=== PATIENT | female | born 1930 ===

== ENCOUNTER → 2016-08-18 | Outpatient (CLI) | payer MEDICARE, OTHER ==
[2016-08-18 11:41] LABS: Blood Urea Nitrogen 15 mg/dL (7-17); Non-African American GFR(MDRD) >60 (>60 ml/min/1.73 sqM)
--- NOTE | 2016-08-18 13:07 | CT ---
EXAMINATION TYPE: CT chest w con DATE OF EXAM: 08/18/2016 12:52 PM COMPARISON: Previous study dated 10/14/2015. HISTORY: Dyspnea CT DLP: 655.3 mGycm Automated exposure control for dose reduction was used. CONTRAST: CT scan of the chest is performed with IV Contrast, patient injected with 100 mL of Omnipaque 300. FINDINGS: There is a 7.6 mm groundglass nodule in the lateral segment of the right upper lobe, best seen on image 17. Previously this measured 5.5 mm. There is chronic atelectasis in the right middle lobe and there is dependent atelectasis at the lung bases. There is mild cardiomegaly. There is no pleural or pericardial fluid. Within the abdomen, there is fatty infiltration of the liver. There is evidence of old granulomatous change in the spleen. There are multiple low attenuating lesions within all lobes of the liver, uncha nged from previous. Visualized portions of the upper abdomen are otherwise normal. There is extensive spondylosis deformans and hypertrophic spondylosis within the spine. IMPRESSION: 1. SLIGHT ENLARGEMENT IN A GROUNDGLASS NODULE WITHIN THE LATERAL SEGMENT OF THE RIGHT UPPER LOBE. 2. CARDIOMEGALY. 3. MULTIPLE HEPATIC CYSTS. 4. FATTY INFILTRATION OF THE LIVER 5. DEGENERATIVE CHANGES WITHIN THE SPINE.
== END | disposition home or self-care (01) ==
LOC: RADCTMAIN 10:43
PROVIDERS: ATTEND Internal Medicine Critical Care Medicine
DX: R91.1 Solitary pulmonary nodule (principal); I51.7 Cardiomegaly
CPT/HCPCS: 71260; 82565; 84520

== ENCOUNTER 2016-09-03 06:35 | Day surgery (SDC) | payer MEDICARE, OTHER ==
[2016-09-02 11:23] VITALS: BMI 42.8
[~2016-09-03 06:35] MED LIST: LACTATED RINGERS 1,000 ML IV SCH
[2016-09-03 07:30] VITALS: RESP 16; TEMP 97.3
[2016-09-03] MEDS ORDERED: LIDOCAINE 1% 20 ML VIAL (10MG/ML) FOR IV START INTRADERMA ONE (07:38)
[2016-09-03 07:39] LABS: Glucose,Whole Blood 114 mg/dL (75-99)
[2016-09-03] MEDS ORDERED: LIDOCAINE 1% INJ 10MG/ML (20 ML MDV) ONE (08:12)
[2016-09-03] MEDS ORDERED: PROPOFOL 10 MG/ML 20 ML VIAL IV ONE (08:12)
--- NOTE | 2016-09-03 08:27 | P.PCN ---
Date of Procedure: 09/03/16 Procedure(s) Performed: BRIEF HISTORY: Patient is a 85-year-old, pleasant, female, scheduled for an upper endoscopy and possible dilation as a part of evaluation of dysphagia for the last several months duration. She has constant sense of global pharyngitis and occasional dysphagia but given his any choking episodes. She has long- standing history of GERD and has been on Prilosec 20 mg daily. PROCEDURE PERFORMED: Esophagogastroduodenoscopy with biopsy. PREOPERATIVE DIAGNOSIS: Dysphagia/GERD/low was pharyngitis. IV sedation per anesthesia. PROCEDURE: After informed consent was obtained, the patient was brought into the endoscopy unit. IV conscious sedation was administered by Anesthesia under continuous monitoring. Initially the Olympus GIF-140 video endoscope was inserted into the mouth. Esophagus intubated without any difficulty. It was gradually advanced into the stomach and duodenum and carefully examined. The bulb and the second part of the duodenum appeared normal. The scope at this time was withdrawn to the stomach, adequately insufflated with air, and upon careful examination, mucosa of the antrum, body, had diffuse gastritis and biopsies were done from these areas. The cardia and the fundus appeared normal. The scope was then withdrawn into the esophagus. The GE junction was located at 39 cm from the incisors. The esophagus appeared normal. Biopsies were done from the distal esophagus to rule out years of age esophagitis. There were no erosions or ulcerations seen. The proximal cervical esophagus was carefully examined and it appeared like the tightness and the cricopharyngeus suspicious for cricopharyngeal dysfunction. There were no mucosal lesions seen and the patient tolerated the procedure well. IMPRESSION: 1. Normal-appearing esophagus with no evidence of esophagitis or esophageal stricture. 2. Some tightness at the upper esophageal sphincter suggestive of mild cricopharyngeal dysfunction. RECOMMENDATIONS: The findings of this examination were discussed with the patient as well as a family. She was reassured about the findings and the meantime I advised her to continue with Prilosec 20 mg daily and follow soft diet.
[2016-09-03 08:51] VITALS: BP 151/86; PULSE 86
== END 2016-09-03 09:18 | disposition home or self-care (01) ==
LOC: ORWHC2ENDO 06:35
PROVIDERS: ATTEND Internal Medicine Gastroenterology
DX: K29.50 Unspecified chronic gastritis without bleeding (principal); K21.9 Gastro-esophageal reflux disease without esophagitis; K22.8 Other specified diseases of esophagus; I50.9 Heart failure, unspecified; I48.91 Unspecified atrial fibrillation; I10 Essential (primary) hypertension; E78.5 Hyperlipidemia, unspecified; G47.33 Obstructive sleep apnea (adult) (pediatric); Z87.891 Personal history of nicotine dependence; E07.9 Disorder of thyroid, unspecified; F39 Unspecified mood [affective] disorder; M54.9 Dorsalgia, unspecified; G89.29 Other chronic pain; Z79.899 Other long term (current) drug therapy; Z79.84 Long term (current) use of oral hypoglycemic drugs; Z79.02 Long term (current) use of antithrombotics/antiplatelets; Z79.51 Long term (current) use of inhaled steroids; Z88.6 Allergy status to analgesic agent
CPT/HCPCS: 88305; 88342; 43239; J2001; J2704

== ENCOUNTER 2017-03-30 21:24 | Emergency (ER) | payer MEDICARE, OTHER ==
[2017-03-30] MEDS ORDERED: SODIUM CHLORIDE 0.9% 1,000 ML IV STA (22:04)
[2017-03-30] MEDS ORDERED: MORPHINE SULFATE 4 MG/ML SYRINGE IV STA (22:04)
[2017-03-30] MEDS ORDERED: LABETALOL 5 MG/ML VIAL MDV IVP STA (22:05)
--- NOTE | 2017-03-30 22:10 | ED ---
General Adult HPI - General Chief complaint: Chest Pain Stated complaint: neck and back pain Time Seen by Provider: 03/30/17 21:47 Source: patient, family, EMS, RN notes reviewed, old records reviewed Mode of arrival: ambulatory - History of Present Illness Initial comments: 86-year-old female presents with atraumatic left shoulder, left neck, and left chest pain. Patient has known history of hypertension. On initial presentation she is very hypertensive systolic blood pressure to 10. Patient denies any injury. Pain is dull and worse with movement. Patient denies central chest pain. Pain is left anterior superior. Patient denies missing any of her antihypertensive medications. She did have some nausea with no significant vomiting. No diarrhea. No abdominal pain. No headache. No fever. - Related Data Home Medications Medication Instructions Recorded Confirmed Omeprazole [PriLOSEC] 20 mg PO BID 06/02/15 03/30/17 Sertraline [Zoloft] 25 mg PO DAILY 10/18/15 03/30/17 Apixaban [Eliquis] 2.5 mg PO BID 02/14/16 03/30/17 HYDROcodone/APAP 5-325MG [[place] 1 tab PO TID PRN 02/14/16 03/30/17 5-325] Diltiazem Oral [Cardizem Oral] 30 mg PO TID 09/02/16 03/30/17 Losartan/Hydrochlorothiazide 1 tab PO DAILY 09/02/16 03/30/17 [Hyzaar 100-25 Tablet] Fluticasone Nasal [place] [Flonase 1 spray EA NOSTRIL DAILY 03/30/17 03/30/17 Nasal [place]] Previous Rx's Medication Instructions Recorded metFORMIN HCL [Glucophage] 850 mg PO AC-SUPPER #30 tab 02/17/16 HYDROcodone/APAP 7.5-325MG [[place] 1 tab PO Q6HR PRN #24 tab 03/31/17 7.5-325] Allergies Allergy/AdvReac Type Severity Reaction Status Date / Time aspirin AdvReac SEE Verified 03/30/17 22:35 COMMENTS Review of Systems ROS Statement: Those systems with pertinent positive or pertinent negative responses have been documented in the HPI. ROS Other: All systems not noted in ROS Statement are negative. Past Medical History Past Medical History: Atrial Fibrillation, Heart Failure, GERD/Reflux, Hyperlipidemia, Hypertension, Osteoarthritis (OA), Respiratory Disorder, Sleep Apnea/CPAP/BIPAP, Thyroid Disorder Additional Past Medical History / Comment(s): DDD WITH BACK PAIN, OCCASIONAL SWELLING IN FEET-DENIES ANY NOW., USES C-PAP MACHINE. , FEELS LIKE SHE HAS A LUMP IN HER THROAT. History of Any Multi-Drug Resistant Organisms: None Reported Past Surgical History: Cholecystectomy, Hysterectomy, Joint Replacement Additional Past Surgical History / Comment(s): EGD for gastric reflux. Excision of lipomas. bilateral cataracts, total knee. Past Anesthesia/Blood Transfusion Reactions: No Reported Reaction Past Psychological History: Anxiety, Depression Smoking Status: Former smoker Past Alcohol Use History: None Reported Past Drug Use History: None Reported - Past Family History Brother(s) Family Medical History: Congestive Heart Failure (CHF), COPD, Coronary Artery Disease (CAD), Diabetes Mellitus Daughter(s) Additional Family Medical History / Comment(s): One from MVA Son(s) Family Medical History: Diabetes Mellitus, Hyperlipidemia, Hypertension Sister(s) Family Medical History: Cancer Mother Family Medical History: Dementia Father Family Medical History: COPD Additional Family Medical History / Comment(s): . General Exam General appearance: alert, in distress Head exam: Present: atraumatic, normocephalic Eye exam: Present: normal appearance, PERRL ENT exam: Present: normal exam Neck exam: Present: normal inspection, tenderness ((Spinal tenderness) Respiratory exam: Present: normal lung sounds bilaterally. Absent: respiratory distress Cardiovascular Exam: Present: regular rate, irregular rhythm GI/Abdominal exam: Present: soft. Absent: distended, tenderness Extremities exam: Present: normal inspection, normal capillary refill, other (2 + DP and 2+ radial pulses). Absent: pedal edema Back exam: Present: tenderness (Left shoulder and thoracic paraspinal muscle tenderness to palpation) Neurological exam: Present: alert, oriented X3, CN II-XII intact. Absent: motor sensory deficit Psychiatric exam: Present: normal affect, normal mood Skin exam: Present: warm, dry, intact. Absent: cyanosis, diaphoretic Course Vital Signs 03/30/17 03/30/17 03/30/17 21:42 22:33 23:20 Temperature 98.2 F Pulse Rate 97 97 71 Respiratory 18 18 18 Rate Blood Pressure 181/95 175/95 154/74 O2 Sat by Pulse 95 98 97 Oximetry 03/31/17 03/31/17 00:13 01:16 Temperature Pulse Rate 90 82 Respiratory 16 Rate Blood Pressure 157/82 147/70 O2 Sat by Pulse 98 98 Oximetry Medical Decision Making - Lab Data Result diagrams: 03/30/17 13:02 03/30/17 13:02 Lab Results 03/30/17 03/30/17 03/30/17 Range/Units 13:02 13:02 13:02 WBC 7.3 (3.8-10.6) k/uL RBC 4.70 (3.80-5.40) m/uL Hgb 13.7 (11.4-16.0) gm/dL Hct 42.8 (34.0-46.0) % MCV 91.1 (80.0-100.0) fL MCH 29.2 (25.0-35.0) pg MCHC 32.0 (31.0-37.0) g/dL RDW 14.7 (11.5-15.5) % Plt Count 230 (150-450) k/uL Neutrophils % 65 % Lymphocytes % 26 % Monocytes % 6 % Eosinophils % 2 % Basophils % 0 % Neutrophils # 4.7 (1.3-7.7) k/uL Lymphocytes # 1.9 (1.0-4.8) k/uL Monocytes # 0.4 (0-1.0) k/uL Eosinophils # 0.1 (0-0.7) k/uL Basophils # 0.0 (0-0.2) k/uL PT (9.0-12.0) sec INR (<1.2) APTT (22.0-30.0) sec Sodium 142 (137-145) mmol/L Potassium 4.0 (3.5-5.1) mmol/L Chloride 107 (98-107) mmol/L Carbon Dioxide 25 (22-30) mmol/L Anion Gap 10 mmol/L BUN 14 (7-17) mg/dL Creatinine 0.68 (0.52-1.04) mg/dL Est GFR (MDRD) Af Amer >60 (>60 ml/min/1.73 sqM) Est GFR (MDRD) Non-Af >60 (>60 ml/min/1.73 sqM) Glucose 120 H (74-99) mg/dL Calcium 8.9 (8.4-10.2) mg/dL Magnesium 1.6 (1.6-2.3) mg/dL Total Bilirubin 0.7 (0.2-1.3) mg/dL AST 28 (14-36) U/L ALT 32 (9-52) U/L Alkaline Phosphatase 54 (38-126) U/L Total Creatine Kinase 115 (30-135) U/L CK-MB (CK-2) 3.2 H* (0.0-2.4) ng/mL CK-MB (CK-2) Rel Index 2.8 Troponin I <0.012 (0.000-0.034) ng/mL NT-Pro-B Natriuret Pep pg/mL Total Protein 6.8 (6.3-8.2) g/dL Albumin 3.8 (3.5-5.0) g/dL 03/30/17 03/30/17 Range/Units 13:02 13:02 WBC (3.8-10.6) k/uL RBC (3.80-5.40) m/uL Hgb (11.4-16.0) gm/dL Hct (34.0-46.0) % MCV (80.0-100.0) fL MCH (25.0-35.0) pg MCHC (31.0-37.0) g/dL RDW (11.5-15.5) % Plt Count (150-450) k/uL Neutrophils % % Lymphocytes % % Monocytes % % Eosinophils % % Basophils % % Neutrophils # (1.3-7.7) k/uL Lymphocytes # (1.0-4.8) k/uL Monocytes # (0-1.0) k/uL Eosinophils # (0-0.7) k/uL Basophils # (0-0.2) k/uL PT 10.5 (9.0-12.0) sec INR 1.0 (<1.2) APTT 21.5 L (22.0-30.0) sec Sodium (137-145) mmol/L Potassium (3.5-5.1) mmol/L Chloride (98-107) mmol/L Carbon Dioxide (22-30) mmol/L Anion Gap mmol/L BUN (7-17) mg/dL Creatinine (0.52-1.04) mg/dL Est GFR (MDRD) Af Amer (>60 ml/min/1.73 sqM) Est GFR (MDRD) Non-Af (>60 ml/min/1.73 sqM) Glucose (74-99) mg/dL Calcium (8.4-10.2) mg/dL Magnesium (1.6-2.3) mg/dL Total Bilirubin (0.2-1.3) mg/dL AST (14-36) U/L ALT (9-52) U/L Alkaline Phosphatase (38-126) U/L Total Creatine Kinase (30-135) U/L CK-MB (CK-2) (0.0-2.4) ng/mL CK-MB (CK-2) Rel Index Troponin I (0.000-0.034) ng/mL NT-Pro-B Natriuret Pep 704 pg/mL Total Protein (6.3-8.2) g/dL Albumin (3.5-5.0) g/dL Disposition Clinical Impression: Musculoskeletal back pain Disposition: HOME SELF-CARE Condition: Good Instructions: Musculoskeletal Pain (ED) Prescriptions: HYDROcodone/APAP 7.5-325MG [[place] 7.5-325] 1 tab PO Q6HR PRN #24 tab PRN Reason: Pain Referrals: Jose Alfredo Burris MD [Primary Care Provider] - 1-2 days Time of Disposition: 01:15
[2017-03-30 22:22] LABS: Basophils % (A) 0 %; CH 30.5; CHCM 33.7; Eosinophils # (A) 0.1 k/uL (0-0.7); Eosinophils % (A) 2 %; HCT 42.8 % (34.0-46.0); HDW 2.91; HGB 13.7 gm/dL (11.4-16.0); Luc # (Auto) 0.11; Luc % (Auto) 2; Lymphocytes # (A) 1.9 k/uL (1.0-4.8); Lymphocytes % (A) 26 %; MCH 29.2 pg (25.0-35.0); MCV 91.1 fL (80.0-100.0); Mean Platelet Volume 7.8; Monocytes # (A) 0.4 k/uL (0-1.0); Monocytes % (A) 6 %; Neutrophils # (A) 4.7 k/uL (1.3-7.7); Neutrophils % (A) 65 %; RDW 14.7 % (11.5-15.5); WBC 7.3 k/uL (3.8-10.6); WBC (Perox) 7.74
[2017-03-30 22:35] LABS: Anion Gap 10 mmol/L; Calcium 8.9 mg/dL (8.4-10.2); Carbon Dioxide 25 mmol/L (22-30); Chloride 107 mmol/L (98-107); Glucose 120 mg/dL (74-99); Non-African American GFR(MDRD) >60 (>60 ml/min/1.73 sqM); Sodium 142 mmol/L (137-145); Total Bilirubin 0.7 mg/dL (0.2-1.3); Total Protein 6.8 g/dL (6.3-8.2)
[2017-03-30 22:38] LABS: Partial Thromboplastin Time 21.5 sec (22.0-30.0); Prothrombin Time 10.5 sec (9.0-12.0)
[2017-03-30 22:41] LABS: ALT 32 U/L (9-52); AST 28 U/L (14-36); Alkaline Phosphatase 54 U/L (38-126); Blood Urea Nitrogen 14 mg/dL (7-17); Magnesium 1.6 mg/dL (1.6-2.3)
--- NOTE | 2017-03-30 22:49 | XR ---
EXAMINATION TYPE: XR chest 1V portable DATE OF EXAM: 03/30/2017 COMPARISON: 02/15/2016 HISTORY: Chest pain TECHNIQUE: Single frontal view of the chest is obtained. FINDINGS: There is mild increased density at the lateral left lung base. There is no gross heart nisreen lure. Heart appears slightly enlarged. Thoracic aorta is atheromatous. There are chest leads. IMPRESSION: Mild infiltrate or atelectasis at the lateral left lung base is new compared to old exam . There is clearing of infiltrate at the right lung base compared to old exam. There is decrease in t he pulmonary congestion compared to old exam.
[2017-03-30 22:58] LABS: Creatine Kinase 115 U/L (30-135)
[2017-03-30 23:09] LABS: Troponin I <0.012 ng/mL (0.000-0.034)
[2017-03-30] MEDS ORDERED: RX INFO: IV CONTRAST WAS GIVEN 1 EACH MISC MISCELLANE PRN (23:16)
[2017-03-30 23:25] LABS: Creatine Kinase MB 3.2 ng/mL (0.0-2.4)
--- NOTE | 2017-03-31 00:28 | CT ---
EXAMINATION TYPE: CT angio thoracic/abd aorta DATE OF EXAM: 03/31/2017 COMPARISON: NONE HISTORY: No prior aorta study. Prior chest and abd studies on synapse, chest and back pain,weakness, dizziness, R/O AAA CT DLP: DLP:1762.90 mGycm. Automated Exposure Control for Dose Reduction was Utilized. CONTRAST: CT scan of the thorax, abdomen and pelvis is performed with IV Contrast, patient injected with 100 mL of Omnipaque 350. FINDINGS: There are 3-D post processed images. The lungs are clear of consolidation. There is minimal fibrosis and subsegmental atelectasis at the l mable bases. Heart is enlarged. Thoracic aorta is atheromatous. There is normal branching pattern of th e great vessels on the aortic arch. Thoracic aorta has normal diameter. Abdominal aorta has normal diameter. There is bilateral patency of the renal arteries. There is patency of the celiac artery and superior mesenteric artery. I see no evidence of hemodynamically significant stenosis. There is atheroscleroti c plaque formation in the renal arteries and mesenteric arteries. The common iliac arteries are widel y patent. Internal and external iliac arteries appear widely patent. There are moderate spondylotic c hanges throughout the thoracic and lumbar spine. There are scattered hepatic cysts that measure up to 2 cm. There is no hydronephrosis. There is no re troperitoneal adenopathy. There is no sign of pancreatic mass. There are multiple calcified splenic g ranulomata. There is no evidence of a pelvic mass. Appendix appears normal. CONCLUSION: Multilevel spondylosis. No evidence of aortic aneurysm or dissection. No evidence of hemodynamically significant stenosis. Small hepatic cysts. Cardiomegaly. No evidence of pulmonary embolism. Mild atherosclerotic vascular d isease.
[2017-03-31] MEDS ORDERED: HYDROcodone/APAP 7.5-325MG 1 EACH TAB PO ONE (01:45)
[2017-03-31 02:04] VITALS: BP 182/92; PULSE 103; RESP 20; TEMP 98
== END 2017-03-31 02:14 | disposition home or self-care (01) ==
LOC: EC 21:24
DX: M54.9 Dorsalgia, unspecified (principal); M25.512 Pain in left shoulder; R07.89 Other chest pain; M54.2 Cervicalgia; R11.0 Nausea; I11.0 Hypertensive heart disease with heart failure; I50.9 Heart failure, unspecified; I48.91 Unspecified atrial fibrillation; K21.9 Gastro-esophageal reflux disease without esophagitis; J98.9 Respiratory disorder, unspecified; F32.9 Major depressive disorder, single episode, unspecified; F41.9 Anxiety disorder, unspecified; Z87.891 Personal history of nicotine dependence; Z79.01 Long term (current) use of anticoagulants; Z79.51 Long term (current) use of inhaled steroids; Z79.899 Other long term (current) drug therapy; Z88.6 Allergy status to analgesic agent; Z82.49 Family history of ischemic heart disease and other diseases of the circulatory system
CPT/HCPCS: 99285 ×2; 96374 ×2; 96375 ×2; 96361 ×5; 36415; 93005; 83880; 80053; 82550; 82553; 83735; 84484; 85025; 85610; 85730; 71010; 75635; 71275; J2270; Q9967

== ENCOUNTER 2017-12-25 03:32 | Inpatient (IN) | payer MEDICARE, OTHER ==
[2017-12-25] MEDS ORDERED: cefTRIAXone 2,000 MG in SODIUM CHLORIDE 0.9% 100 ML IVPB STA (04:02)
[2017-12-25] MEDS ORDERED: cefTRIAXone IN SWFI 2,000 MG/20 ML SYRINGE IVP STA ×2 (04:04→07:59)
[2017-12-25 04:09] LABS: Basophils % (A) 0 %; Eosinophils # (A) 0.1 k/uL (0-0.7); Eosinophils % (A) 1 %; HGB 13.3 gm/dL (11.4-16.0); Lymphocytes # (A) 1.5 k/uL (1.0-4.8); Lymphocytes % (A) 12 %; MCH 29.2 pg (25.0-35.0); MCHC 33.2 g/dL (31.0-37.0); MCV 88.1 fL (80.0-100.0); Mean Platelet Volume 7.3; Monocytes # (A) 0.5 k/uL (0-1.0); Monocytes % (A) 4 %; Neutrophils # (A) 10.4 k/uL (1.3-7.7); Neutrophils % (A) 83 %; Platelet Count 244 k/uL (150-450); RBC 4.54 m/uL (3.80-5.40); RDW 13.8 % (11.5-15.5); WBC 12.6 k/uL (3.8-10.6)
[2017-12-25 04:23] LABS: ALT 37 U/L (9-52); AST 36 U/L (14-36); Alkaline Phosphatase 65 U/L (38-126); Anion Gap 12 mmol/L; Blood Urea Nitrogen 15 mg/dL (7-17); Calcium 8.8 mg/dL (8.4-10.2); Carbon Dioxide 26 mmol/L (22-30); Chloride 101 mmol/L (98-107); Glucose 208 mg/dL (74-99); Potassium 4.1 mmol/L (3.5-5.1); Sodium 139 mmol/L (137-145); Total Bilirubin 0.6 mg/dL (0.2-1.3); Total Protein 6.7 g/dL (6.3-8.2)
[2017-12-25 04:34] LABS: INR 1.1 (<1.2); Partial Thromboplastin Time 23.2 sec (22.0-30.0); Prothrombin Time 10.4 sec (9.0-12.0)
[2017-12-25 04:51] LABS: Appearance,Urine Clear (Clear); Bacteria,Urine Rare /hpf; Bilirubin,Urine Negative (Negative); Blood,Urine Trace (Negative); Color,Urine Light Yellow; Glucose,Urine (UA) Trace (Negative); Ketones,Urine Negative (Negative); Leukocyte Esterase,Urine Negative (Negative); Mucus,Urine Rare /hpf; Nitrite,Urine Negative (Negative); PH, Urine 5.5 (5.0-8.0); Protein,Urine Trace (Negative); RBC,Urine 2 /hpf (0-5); Specific Gravity,Urine 1.016 (1.001-1.035); Squamous Epithelial Cell,Urine <1 /hpf (0-4); Urobilinogen,Urine <2.0 mg/dL (<2.0); WBC,Urine <1 /hpf (0-5)
--- NOTE | 2017-12-25 05:03 | XR ---
EXAM: XR Left Shoulder Complete, 2 or More Views CLINICAL HISTORY: ITS.REASON XR Reason: Pain TECHNIQUE: Two or more views of the left shoulder. COMPARISON: None. FINDINGS: Bones/joints: Degenerative changes seen in the acromioclavicular joint. No acute fracture. No dislocation. Soft tissues: Unremarkable. IMPRESSION: No fracture or dislocation.
--- NOTE | 2017-12-25 05:06 | XR ---
EXAM: XR Cervical Spine, 4 or 5 Views CLINICAL HISTORY: ITS.REASON XR Reason: Pain TECHNIQUE: Frontal, lateral and oblique views of the cervical spine. COMPARISON: None. FINDINGS: Vertebrae: Unremarkable. No acute fracture. Normal alignment. Disc spaces: No acute findings. No significant narrowing. Soft tissues: Unremarkable. IMPRESSION: No displaced fracture or malalignment. If there is concern for cervical spine fracture, recommend CT.
[2017-12-25] MEDS ORDERED: ACETAMINOPHEN TAB 500 MG TAB PO STA (05:09)
[2017-12-25] MEDS ORDERED: MORPHINE SULFATE 2 MG/ML SYRINGE IVP STA (05:09)
--- NOTE | 2017-12-25 05:12 | XR ---
EXAM: XR Chest, 2 Views CLINICAL HISTORY: ITS.REASON XR Reason: Pain TECHNIQUE: Frontal and lateral views of the chest. COMPARISON: Chest radiograph March 30, 2017. FINDINGS: Lungs: Linear opacity in the left base likely represents atelectasis. Pleural space: Unremarkable. No pneumothorax. Heart: Cardiomegaly. Mediastinum: Unremarkable. Bones/joints: 2.5 cm radiodensity overlying the lower thoracic spine is of uncertain significance, potentially representing ingested material. IMPRESSION: No acute findings.
--- NOTE | 2017-12-25 07:37 | ED ---
General Adult HPI - General Chief complaint: Shortness of Breath Stated complaint: SOB Time Seen by Provider: 12/25/17 03:45 Source: patient, EMS Mode of arrival: EMS Limitations: language barrier - History of Present Illness Initial comments: 87 years old lady has a history of atrial fibrillation comes in with fever chills feeling generalized weakness, she is complaining about neck pain and left shoulder pain she denies any trauma also complaining about the chest pain also complaining about shortness of breath, denies any pleuritic chest pain he doesn't hurt with a deep breaths she is on aliquots for atrial fibrillation. No headaches no blurred vision no signs of any meningitis no weakness of upper or lower extremity has chest pain she has a chronic shortness of breath no symptoms of TIA or CVA - Related Data Home Medications Medication Instructions Recorded Confirmed Omeprazole [PriLOSEC] 20 mg PO BID 06/02/15 03/30/17 Sertraline [Zoloft] 25 mg PO DAILY 10/18/15 03/30/17 Apixaban [Eliquis] 2.5 mg PO BID 02/14/16 03/30/17 HYDROcodone/APAP 5-325MG [[place] 1 tab PO TID PRN 02/14/16 03/30/17 5-325] Diltiazem Oral [Cardizem Oral] 30 mg PO TID 09/02/16 03/30/17 Losartan/Hydrochlorothiazide 1 tab PO DAILY 09/02/16 03/30/17 [Hyzaar 100-25 Tablet] Fluticasone Nasal [place] [Flonase 1 spray EA NOSTRIL DAILY 03/30/17 03/30/17 Nasal [place]] Previous Rx's Medication Instructions Recorded metFORMIN HCL [Glucophage] 850 mg PO AC-SUPPER #30 tab 02/17/16 HYDROcodone/APAP 7.5-325MG [[place] 1 tab PO Q6HR PRN #24 tab 03/31/17 7.5-325] Allergies Allergy/AdvReac Type Severity Reaction Status Date / Time aspirin AdvReac SEE Verified 12/25/17 03:40 COMMENTS Review of Systems ROS Statement: Those systems with pertinent positive or pertinent negative responses have been documented in the HPI. ROS Other: All systems not noted in ROS Statement are negative. Past Medical History Past Medical History: Atrial Fibrillation, Heart Failure, GERD/Reflux, Hyperlipidemia, Hypertension, Osteoarthritis (OA), Respiratory Disorder, Sleep Apnea/CPAP/BIPAP, Thyroid Disorder Additional Past Medical History / Comment(s): DDD WITH BACK PAIN, OCCASIONAL SWELLING IN FEET-DENIES ANY NOW., USES C-PAP MACHINE. , FEELS LIKE SHE HAS A LUMP IN HER THROAT. History of Any Multi-Drug Resistant Organisms: None Reported Past Surgical History: Cholecystectomy, Hysterectomy, Joint Replacement Additional Past Surgical History / Comment(s): EGD for gastric reflux. Excision of lipomas. bilateral cataracts, total knee. Past Anesthesia/Blood Transfusion Reactions: No Reported Reaction Past Psychological History: Anxiety, Depression Smoking Status: Former smoker Past Alcohol Use History: None Reported Past Drug Use History: None Reported - Past Family History Brother(s) Family Medical History: Congestive Heart Failure (CHF), COPD, Coronary Artery Disease (CAD), Diabetes Mellitus Daughter(s) Additional Family Medical History / Comment(s): One from MVA Son(s) Family Medical History: Diabetes Mellitus, Hyperlipidemia, Hypertension Sister(s) Family Medical History: Cancer Mother Family Medical History: Dementia Father Family Medical History: COPD Additional Family Medical History / Comment(s): . General Exam Limitations: language barrier Course Vital Signs 12/25/17 12/25/17 12/25/17 03:34 03:53 04:58 Temperature 101.1 F H 101.0 F H 101.1 F H Pulse Rate 111 H 109 H 110 H Respiratory 20 24 22 Rate Blood Pressure 176/96 179/92 127/63 O2 Sat by Pulse 96 95 97 Oximetry 12/25/17 12/25/17 05:30 06:28 Temperature 100.8 F H 99.7 F H Pulse Rate 92 88 Respiratory 16 16 Rate Blood Pressure 123/62 152/72 O2 Sat by Pulse 2 L 95 Oximetry Activities 12.6 is a left shift lactate is 2.3I believe she has a sepsis fluid resuscitation was bit limited considering cardiomegaly was noticed on the chest x-ray urinalysis is normal cervical spine imaging as well as left shoulder imaging are unremarkable she needs a chest pain, shortness of breath, atrial fibrillation, fever. Patient had a broad-spectrum antibiotic patient be admitted to Dr. Pepper EKG Findings - EKG Comments: EKG Findings:: Atrial fibrillation is noticed with RVR ventricular rate is 110 NV interval is, QRS duration is 78 QT/QTC 322/435 review of this EKG does not reveal any ST elevation or ST depression Medical Decision Making - Lab Data Result diagrams: 12/25/17 03:45 12/25/17 03:45 Lab Results 12/25/17 12/25/17 12/25/17 Range/Units 03:45 03:45 03:45 WBC 12.6 H (3.8-10.6) k/uL RBC 4.54 (3.80-5.40) m/uL Hgb 13.3 (11.4-16.0) gm/dL Hct 40.0 (34.0-46.0) % MCV 88.1 (80.0-100.0) fL MCH 29.2 (25.0-35.0) pg MCHC 33.2 (31.0-37.0) g/dL RDW 13.8 (11.5-15.5) % Plt Count 244 (150-450) k/uL Neutrophils % 83 % Lymphocytes % 12 % Monocytes % 4 % Eosinophils % 1 % Basophils % 0 % Neutrophils # 10.4 H (1.3-7.7) k/uL Lymphocytes # 1.5 (1.0-4.8) k/uL Monocytes # 0.5 (0-1.0) k/uL Eosinophils # 0.1 (0-0.7) k/uL Basophils # 0.0 (0-0.2) k/uL PT (9.0-12.0) sec INR (<1.2) APTT (22.0-30.0) sec Sodium 139 (137-145) mmol/L Potassium 4.1 (3.5-5.1) mmol/L Chloride 101 (98-107) mmol/L Carbon Dioxide 26 (22-30) mmol/L Anion Gap 12 mmol/L BUN 15 (7-17) mg/dL Creatinine 0.60 (0.52-1.04) mg/dL Est GFR (CKD-EPI)AfAm >90 (>60 ml/min/1.73 sqM) Est GFR (CKD-EPI)NonAf 84 (>60 ml/min/1.73 sqM) Glucose 208 H (74-99) mg/dL Lactic Ac Sepsis Rflx Plasma Lactic Acid Osorio 2.3 H* (0.7-2.0) mmol/L Calcium 8.8 (8.4-10.2) mg/dL Total Bilirubin 0.6 (0.2-1.3) mg/dL AST 36 (14-36) U/L ALT 37 (9-52) U/L Alkaline Phosphatase 65 (38-126) U/L Total Protein 6.7 (6.3-8.2) g/dL Albumin 4.0 (3.5-5.0) g/dL Urine Color Urine Appearance (Clear) Urine pH (5.0-8.0) Ur Specific Adams (1.001-1.035) Urine Protein (Negative) Urine Glucose (UA) (Negative) Urine Ketones (Negative) Urine Blood (Negative) Urine Nitrite (Negative) Urine Bilirubin (Negative) Urine Urobilinogen (<2.0) mg/dL Ur Leukocyte Esterase (Negative) Urine RBC (0-5) /hpf Urine WBC (0-5) /hpf Ur Squamous Epith Cells (0-4) /hpf Urine Bacteria (None) /hpf Urine Mucus (None) /hpf 12/25/17 12/25/17 12/25/17 Range/Units 03:45 03:45 04:27 WBC (3.8-10.6) k/uL RBC (3.80-5.40) m/uL Hgb (11.4-16.0) gm/dL Hct (34.0-46.0) % MCV (80.0-100.0) fL MCH (25.0-35.0) pg MCHC (31.0-37.0) g/dL RDW (11.5-15.5) % Plt Count (150-450) k/uL Neutrophils % % Lymphocytes % % Monocytes % % Eosinophils % % Basophils % % Neutrophils # (1.3-7.7) k/uL Lymphocytes # (1.0-4.8) k/uL Monocytes # (0-1.0) k/uL Eosinophils # (0-0.7) k/uL Basophils # (0-0.2) k/uL PT 10.4 (9.0-12.0) sec INR 1.1 (<1.2) APTT 23.2 (22.0-30.0) sec Sodium (137-145) mmol/L Potassium (3.5-5.1) mmol/L Chloride (98-107) mmol/L Carbon Dioxide (22-30) mmol/L Anion Gap mmol/L BUN (7-17) mg/dL Creatinine (0.52-1.04) mg/dL Est GFR (CKD-EPI)AfAm (>60 ml/min/1.73 sqM) Est GFR (CKD-EPI)NonAf (>60 ml/min/1.73 sqM) Glucose (74-99) mg/dL Lactic Ac Sepsis Rflx Y Plasma Lactic Acid Osorio (0.7-2.0) mmol/L Calcium (8.4-10.2) mg/dL Total Bilirubin (0.2-1.3) mg/dL AST (14-36) U/L ALT (9-52) U/L Alkaline Phosphatase (38-126) U/L Total Protein (6.3-8.2) g/dL Albumin (3.5-5.0) g/dL Urine Color Light Yellow Urine Appearance Clear (Clear) Urine pH 5.5 (5.0-8.0) Ur Specific Adams 1.016 (1.001-1.035) Urine Protein Trace H (Negative) Urine Glucose (UA) Trace H (Negative) Urine Ketones Negative (Negative) Urine Blood Trace H (Negative) Urine Nitrite Negative (Negative) Urine Bilirubin Negative (Negative) Urine Urobilinogen <2.0 (<2.0) mg/dL Ur Leukocyte Esterase Negative (Negative) Urine RBC 2 (0-5) /hpf Urine WBC <1 (0-5) /hpf Ur Squamous Epith Cells <1 (0-4) /hpf Urine Bacteria Rare H (None) /hpf Urine Mucus Rare H (None) /hpf Disposition Clinical Impression: Fever, Sepsis, Atrial fibrillation with RVR Disposition: ADMITTED IP TO THIS HOSP Referrals: Jose Alfredo Burris MD [Primary Care Provider] - 1-2 days
[2017-12-25] MEDS ORDERED: ONDANSETRON 4 MG/2 ML VIAL IVP PRN (07:53)
[2017-12-25] MEDS ORDERED: NALOXONE 0.4 MG/ML 1 ML VIAL IV PRN (07:53)
[2017-12-25] MEDS ORDERED: HYDROmorphone 0.5 MG/0.5 ML SYRINGE IVP PRN (07:53)
[2017-12-25] MEDS ORDERED: SODIUM CHLORIDE 0.9% 1,000 ML IV ONE (07:57)
[2017-12-25] MEDS: APIXABAN 2.5 MG TABLET PO SCH ×2 (09:37→21:48)
[2017-12-25] MEDS: LOSARTAN-HCTZ 50-12.5 MG 1 EACH TAB PO SCH (09:38)
[2017-12-25] MEDS: DILTIAZEM ORAL 30 MG TAB PO SCH ×3 (09:38→22:43)
[2017-12-25] MEDS: PANTOPRAZOLE 40 MG TABLET PO SCH (09:38)
[2017-12-25] MEDS: SERTRALINE 25 MG TAB PO SCH (09:38)
[2017-12-25] MEDS: SODIUM CHLORIDE 0.9% 1,000 ML IV SCH ×2 (09:40→18:28)
[2017-12-25] MEDS: FLUTICASONE 50MCG/SPRAY NASAL 16GM EA NOSTRIL SCH (09:40)
[2017-12-25] MEDS: HYDROcodone/APAP 7.5-325MG 1 EACH TAB PO PRN ×2 (11:54→18:26)
--- NOTE | 2017-12-25 16:50 | P.HPIM ---
History of Present Illness H&P Date: 12/25/17 This a pleasant 87-year-old lady patient of Dr. Wilfrid Burris/ Dr Patterson. 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 She also has neck pain, polyarthritis, no pleurisy, slight cough , no new motor or neurologic deficits except weakness, She tried using her nebulizer treatments which is normally once a week now has used 3 times per day with no relief. She was seen in emergency room with septic-like picture with left shift and mild leukocytosis, without any source of infection. Chest x-ray failed to reveal an acute infiltrate however there is a radiodense ingested material noted on chest x-ray, urinalysis is normal. She comes in with A. fib with RVR, heart rate in the 110s She is evaluated in the emergency room showing an EKG in A. fib with rapid ventricular rate heart rate in the 120s at the time of admission. There is no ST segment elevation or depression. She was last seen by Dr. Dr. Patterson cardiology 4 weeks ago and was transitioned to eliquia from coumadin and she has chronic low back pain low back pain with numbness below the knee suspicious of L5 S1 radiculopathy, also has a headache for several years now mainly left side without any neurologic complaints she has dizziness and blurred vision for over 1 year and she also has insomnia, constipation and increasing weakness no recent falls at home intermittently she requires a cane for ambulation Review of Systems Constitutional: Reports as per HPI, Reports chronic pain, Reports weakness Cardiovascular: Reports as per HPI, Reports decreased exercise tolerance, Reports dyspnea on exertion Respiratory: Reports as per HPI, Reports dyspnea Gastrointestinal: Denies as per HPI, Denies abdominal pain, Denies belching, Denies bloating, Denies BRBPR, Denies change in bowel habits, Denies coffee ground emesis, Denies constipation, Denies diarrhea, Denies dyspepsia, Denies early satiety, Denies excessive gas, Denies heartburn, Denies hematemesis, Denies hematochezia, Denies indigestion, Denies jaundice, Denies lactose intolerance, Denies loss of appetite, Denies melena, Denies nausea, Denies vomiting Genitourinary: Reports as per HPI, Denies abnormal vaginal bleeding, Denies decreased libido, Denies difficulty conceiving, Denies difficulty voiding, Denies dysmenorrhea, Denies dyspareunia, Denies dysuria, Denies flank pain, Denies genital sores, Denies hematuria, Denies hot flashes, Denies incomplete emptying, Denies kidney stones, Denies menorrhagia, Denies mixed incontinence, Denies nocturia, Denies pelvic pain, Denies post void dribbling, Denies , Denies prolapse symptoms, Denies stress incontinence, Denies urge incontinence , Denies urgency, Denies urinary frequency, Denies vaginal discharge, Denies vaginal dryness, Denies vaginal itching, Denies vaginal odor Menstruation: Reports as per HPI Integumentary: Reports as per HPI Neurological: Reports aphasia, Reports weakness Psychiatric: Reports as per HPI, Reports sleep disturbances, Denies anhedonia, Denies anxiety, Denies anxiety attacks, Denies change in appetite, Denies change in libido, Denies change in sleep habits, Denies confusion, Denies depression, Denies difficulty concentrating, Denies disorientation, Denies hallucinations, Denies hopelessness, Denies hypersomnia, Denies insomnia, Denies irritability, Denies memory loss, Denies mood swings, Denies paranoia, Denies sadness/tearfulness, Denies suicidal ideation Endocrine: Reports as per HPI Hematologic/Lymphatic: Reports as per HPI, Denies easy bleeding, Denies easy bruising, Denies lymphadenopathy, Denies lymphedema, Denies thrombophilia Allergic/Immunologic: Reports as per HPI, Denies allergic rhinitis, Denies anaphylaxis, Denies angioedema, Denies gluten intolerance, Denies persistent infections, Denies seasonal allergies, Denies urticaria, Denies wheezing Past Medical History Past Medical History: Atrial Fibrillation, Heart Failure, GERD/Reflux, Hyperlipidemia, Hypertension, Osteoarthritis (OA), Respiratory Disorder, Sleep Apnea/CPAP/BIPAP, Thyroid Disorder Additional Past Medical History / Comment(s): DDD WITH BACK PAIN, OCCASIONAL SWELLING IN FEET-DENIES ANY NOW., USES C-PAP MACHINE. , FEELS LIKE SHE HAS A LUMP IN HER THROAT. History of Any Multi-Drug Resistant Organisms: None Reported Past Surgical History: Cholecystectomy, Hysterectomy, Joint Replacement Additional Past Surgical History / Comment(s): EGD for gastric reflux. Excision of lipomas. bilateral cataracts, total knee. Past Anesthesia/Blood Transfusion Reactions: No Reported Reaction Past Psychological History: Anxiety, Depression Smoking Status: Former smoker Past Alcohol Use History: None Reported Past Drug Use History: None Reported - Past Family History Brother(s) Family Medical History: Congestive Heart Failure (CHF), COPD, Coronary Artery Disease (CAD), Diabetes Mellitus Daughter(s) Additional Family Medical History / Comment(s): One from MVA Son(s) Family Medical History: Diabetes Mellitus, Hyperlipidemia, Hypertension Sister(s) Family Medical History: Cancer Mother Family Medical History: Dementia Father Family Medical History: COPD Additional Family Medical History / Comment(s): . Medications and Allergies Home Medications Medication Instructions Recorded Confirmed Type Omeprazole [PriLOSEC] 20 mg PO BID 06/02/15 12/25/17 History Sertraline [Zoloft] 25 mg PO DAILY 10/18/15 12/25/17 History Apixaban [Eliquis] 2.5 mg PO BID 02/14/16 12/25/17 History metFORMIN HCL [Glucophage] 850 mg PO AC-SUPPER #30 tab 02/17/16 12/25/17 Rx Diltiazem Oral [Cardizem Oral] 30 mg PO TID 09/02/16 12/25/17 History Losartan/Hydrochlorothiazide 1 tab PO DAILY 09/02/16 12/25/17 History [Hyzaar 100-25 Tablet] Fluticasone Nasal [place] [Flonase 1 spray EA NOSTRIL DAILY 03/30/17 12/25/17 History Nasal [place]] Amoxicillin See Taper PO DAILY 12/25/17 12/25/17 History HYDROcodone/APAP 7.5-325MG [[place] 1 tab PO TID PRN 12/25/17 12/25/17 History 7.5-325] Ibuprofen [Advil] 400 mg PO DAILY PRN 12/25/17 12/25/17 History Allergies Allergy/AdvReac Type Severity Reaction Status Date / Time aspirin AdvReac SEE Verified 12/25/17 12:52 COMMENTS Physical Exam Vitals: Vital Signs Temp Pulse Resp BP Pulse Ox 12/25/17 14:57 16 12/25/17 13:47 82 16 174/89 99 12/25/17 13:44 88 16 167/91 96 12/25/17 12:30 92 16 187/90 98 12/25/17 11:54 96 20 96 12/25/17 11:11 78 16 177/95 98 12/25/17 06:28 99.7 F H 88 16 152/72 95 12/25/17 05:30 100.8 F H 92 16 123/62 2 L 12/25/17 04:58 101.1 F H 110 H 22 127/63 97 12/25/17 03:53 101.0 F H 109 H 24 179/92 95 12/25/17 03:34 101.1 F H 111 H 20 176/96 96 Intake and Output 12/25/17 12/25/17 12/25/17 06:59 14:59 22:59 Other: Weight 92.986 kg - Constitutional General appearance: cooperative, no acute distress - EENT Eyes: anicteric sclerae, dentition normal, normal appearance ENT: hearing grossly normal, NA/AT, normal oropharynx - Neck Neck: normal ROM - Respiratory Respiratory: bilateral: CTA, wheezing, negative: diminished, dullness, rales, rhonchi, prolonged expiration - Cardiovascular Rhythm: regular Heart sounds: normal: S1, S2 Abnormal Heart Sounds: no systolic murmur, no diastolic murmur, no rub, no S3 Gallop, no S4 Gallop, no click, no other - Gastrointestinal General gastrointestinal: normal bowel sounds, soft - Integumentary Integumentary: decreased turgor, normal - Neurologic Neurologic: CNII-XII intact - Musculoskeletal Musculoskeletal: gait normal, generalized weakness - Psychiatric Psychiatric: A&O x's 3 Results CBC & Chem 7: 12/25/17 03:45 12/25/17 03:45 Labs: Abnormal Lab Results - Last 24 Hours (Table) 12/25/17 12/25/17 12/25/17 Range/Units 03:45 03:45 03:45 WBC 12.6 H (3.8-10.6) k/uL Neutrophils # 10.4 H (1.3-7.7) k/uL Glucose 208 H (74-99) mg/dL Plasma Lactic Acid Osorio 2.3 H* (0.7-2.0) mmol/L Urine Protein (Negative) Urine Glucose (UA) (Negative) Urine Blood (Negative) Urine Bacteria (None) /hpf Urine Mucus (None) /hpf 12/25/17 Range/Units 03:45 WBC (3.8-10.6) k/uL Neutrophils # (1.3-7.7) k/uL Glucose (74-99) mg/dL Plasma Lactic Acid Osorio (0.7-2.0) mmol/L Urine Protein Trace H (Negative) Urine Glucose (UA) Trace H (Negative) Urine Blood Trace H (Negative) Urine Bacteria Rare H (None) /hpf Urine Mucus Rare H (None) /hpf Microbiology - Last 24 Hours (Table) 12/25/17 03:45 Urine Culture - Preliminary Urine,Voided Thrombosis Risk Factor Assmnt - DVT/VTE Prophylaxis DVT/VTE Prophylaxis: Pharmacologic Prophylaxis ordered, Mechanical Prophylaxis ordered - Choose All That Apply Each Factor Represents 1 point: Sepsis (< 1month) Each Risk Factor Represents 3 Points: Age 75 years or older Thrombosis Risk Factor Assessment Total Risk Factor Score: 4 Thrombosis Risk Factor Assessment Level: Moderate Risk Assessment and Plan Plan: 1. Acute exacerbation shortness of breath possibly related to of atrial fibrillation with rapid ventricular rate, systolic and diastolic CHF exacerbation presenting with increasing dyspnea and exertion , PHYSICAL THERAPY DIRECTOR proBNP is not done in the emergency room, which she currently Cardizem 30 mg 3 times a day eliquis 2.5 mg twice a day patient is not on any beta avery prior to admission. Cardiology is consulted, echocardiogram to be done, IV Lasix when necessary 2. Leukocytosis, sepsis is in the differential, we would need sed rate CRP) calcitonin level, and PAD, antibiotics, no sorurce in the urine or the chest x- ray on routine exam however patient has mild cough, elevation possibly bilateral against phase reactant 2. Chronic anticoagulation with eliquis no side effects or complications at this time maintain dosing no changes made, cautioned on the use ibuprofen specially with chronic anticoagulation 3. 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 Polyarthritis, Neuralgia right lower extremity with severe peripheral neuropathy. Underlying spinal stenosis cannot be ruled patient will be started on gabapentin 100 mg 3 times a day which would be titrated to symptom control 4. Underlying history of asthma active airway or COPD this was not clarified she was symptomatic, however these could be related to her CHF problems this needs to be reinvestigated and readdressed she mentions she has an appointment with Dr. Aviles as an outpatient and was scheduled by Dr. Wilfrid Burris. 5. Chronic pain syndrome for which she is on hydrocodone 6. Carotid artery stenosis with mild plaque no significant hemodynamic stenosis noted September 2015 7. Hyperlipidemia not on any statin prior to admission were based on her previous CVA statins, I recommended this will be discussed with the patient however this is assured that it was discontinued in the past secondary to statin intolerance 8. Headache chronic also related with blurred vision, chronic bilateral history of cataract with IOL secondary cataracts cannot be ruled out, she needs imaging studies if she is not any better with her sleep deprived patient 9. Chronic sleep dysfunction melatonin 10 mg tablet will be started 10. Overactive bladder chronic not on any medications 11. Diabetes mellitus type 2 hemoglobin A1c is requested on metformin which would be restarted i Accu-Cheks with NovoLog scale 12. Radio dense ingested material noted on x-ray, this seems to be around non- distinct nonmetallic type material on the gastric region. Significance is unknown GI prophylaxis and DVT prophylaxis provided she is on chronic anticoagulation for her atrial fibrillation
[2017-12-25 17:01] LABS: Glucose,Whole Blood 135 mg/dL (75-99)
[2017-12-25] MEDS: INSULIN ASPART 100 UNIT/ML 1 ML 10 ML VIAL SQ SCH ×2 (18:26→22:43)
[2017-12-25 20:53] LABS: Glucose,Whole Blood 161 mg/dL (75-99)
[2017-12-26] MEDS: HYDROcodone/APAP 7.5-325MG 1 EACH TAB PO PRN ×2 (04:13→09:52)
[2017-12-26 06:23] LABS: Glucose,Whole Blood 139 mg/dL (75-99)
[2017-12-26] MEDS: SODIUM CHLORIDE 0.9% 1,000 ML IV SCH ×2 (06:25→11:31)
[2017-12-26] MEDS: cefTRIAXone IN SWFI 2,000 MG/20 ML SYRINGE IVP SCH (06:27)
[2017-12-26] MEDS: INSULIN ASPART 100 UNIT/ML 1 ML 10 ML VIAL SQ SCH ×4 (06:29→22:12)
[2017-12-26] MEDS: PANTOPRAZOLE 40 MG TABLET PO SCH (06:30)
[2017-12-26] MEDS: APIXABAN 2.5 MG TABLET PO SCH (08:15)
[2017-12-26] MEDS: LOSARTAN-HCTZ 50-12.5 MG 1 EACH TAB PO SCH (08:15)
[2017-12-26] MEDS: FLUTICASONE 50MCG/SPRAY NASAL 16GM EA NOSTRIL SCH (08:15)
[2017-12-26] MEDS: DILTIAZEM ORAL 30 MG TAB PO SCH ×3 (08:15→22:12)
[2017-12-26] MEDS: SERTRALINE 25 MG TAB PO SCH (08:15)
[2017-12-26] MEDS: METOPROLOL SUCCINATE (ER) 50 MG TAB.ER.24H PO SCH (09:51)
[2017-12-26] MEDS: BACLOFEN 10 MG TAB PO SCH ×3 (11:30→22:12)
--- NOTE | 2017-12-26 11:47 | CONS ---
CONSULTATION CHIEF COMPLAINT: Shortness of breath. Joyce is an 87-year-old lady with chronic multiple and complex medical problems including hypertension, chronic atrial fibrillation, [id number]-duvippyke diabetes, who presented to hospital complaining of shortness of breath and left-sided headache and facial pain. She has been becoming progressively short of breath for the last several days. She denies chest pain, palpitations, syncope new focal neurological deficits. The patient has had an episode of TIA. She has mild leg edema. She has known chronic atrial fibrillation and has recently been started on Eliquis. She has had 3 sets of cardiac enzymes that were all within normal limits. On her initial presentation, she had mild fever, had elevated lactic acid and was thought to have had sepsis and was treated with ceftriaxone. We really did not have any focus of infection. The patient has known chronic LV systolic dysfunction with an ejection fraction of around 45%. She had a BNP level that was 997, which does not diagnose congestive heart failure in her age group. EKG shows atrial fibrillation with nonspecific ST-T wave changes. I believe her clinical presentation is consistent with shortness of breath due to multiple underlying problems including atrial fibrillation with rapid ventricular rate, morbid obesity, poor physical fitness. Her chest x-ray does not reveal pulmonary congestion. She did not have a myocardial infarction. The patient had cardiac catheterization by me in March of 2014 following her presentation with unstable angina and had normal coronary arteries. While I do not have her records with me, she has had subsequent negative stress test. PAST MEDICAL HISTORY: Significant for hypertension, oom-jgusdkj-nyxicrjhx diabetes. MEDICATIONS: Medications at home included Glucophage 850 b.i.d., Zoloft 25 mg daily, Prilosec 20 b.i.d., Hyzaar, Advil, [place], Flonase, Cardizem 30 t.i.d., Eliquis. ALLERGIES: Allergic to ASPIRIN. FAMILY HISTORY: Negative for premature coronary artery disease. SOCIAL HISTORY: Denies current smoking, EtOH abuse, or drug abuse. REVIEW OF SYSTEMS: HEENT is unremarkable. CARDIAC: As described above. RESPIRATORY: Negative. GI: Negative. GENITOURINARY: Negative. ALLERGIES/IMMUNOLOGY: Negative. SKIN: Negative. MUSCULOSKELETAL: Significant for arthritis. PSYCHOSOCIAL: Negative. ENDOCRINE: Negative. HEMATOLOGICAL: Negative. DERM: Negative. CONSTITUTIONAL: Negative. ONCOLOGICAL: Negative. Rest of the system review is not relevant. PHYSICAL EXAMINATION: On exam, she is comfortable at rest. Afebrile. Heart rate is around 100 beats per minute, blood pressure is 172/95, respiratory rate is 18, O2 sat is 95% on 2 L. There is no jugular venous distention. Carotid upstroke is diminished. There is no bruit. Chest exam reveals diminished air entry at the bases. Heart exam reveals first and second heart sounds, irregular rhythm and a systolic murmur at the left lower sternal border. Abdomen is soft. Examination of the extremities reveals mild edema. Peripheral pulses are felt. ASSESSMENT: 1. Shortness of breath, probably related to chronic atrial fibrillation with poorly controlled ventricular rate, morbid obesity, hypertensive heart disease. 2. Atrial fibrillation with poorly controlled ventricular rate. 3. Non-insulin diabetes. 4. Possible sepsis. 5. Uncontrolled hypertension. PLAN: I am going start her on Toprol XL for optimal blood pressure control and heart rate control. Continue rest of her medications. Continue the anticoagulant. The patient has facial pain, management as per Dr. Pepper. MMODL / IJN: [id number] /
[2017-12-26 11:51] LABS: Glucose,Whole Blood 141 mg/dL (75-99)
--- NOTE | 2017-12-26 12:53 | P.PN ---
Subjective This a pleasant 87-year-old lady patient of Dr. Wilfrid Burris/ Dr Patterson. 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 She also has neck pain, polyarthritis, no pleurisy, slight cough , no new motor or neurologic deficits except weakness, She tried using her nebulizer treatments which is normally once a week now has used 3 times per day with no relief. She was seen in emergency room with septic-like picture with left shift and mild leukocytosis, without any source of infection. Chest x-ray failed to reveal an acute infiltrate however there is a radiodense ingested material noted on chest x-ray, urinalysis is normal. She comes in with A. fib with RVR, heart rate in the 110s She is evaluated in the emergency room showing an EKG in A. fib with rapid ventricular rate heart rate in the 120s at the time of admission. There is no ST segment elevation or depression. She was last seen by Dr. Dr. Patterson cardiology 4 weeks ago and was transitioned to eliquis from coumadin and she has chronic low back pain low back pain with numbness below the knee suspicious of L5 S1 radiculopathy, also has a headache for several years now mainly left side without any neurologic complaints she has dizziness and blurred vision for over 1 year and she also has insomnia, constipation and increasing weakness no recent falls at home intermittently she requires a cane for ambulation 12/26: Patient evaluated today, family at bedside. Heart rate running in the 100's , she is hypertensive at 173/92, she is receiving hyzaar, metoprolol, and cardizem. She complains of quit a bit of back and neck pain, she has a previous MRI that showed spinal stenosis. Consulted Al-Robert for possible steroid epidural injection for her spinal stenosis and pain and trigger injection for occipital neuralgia, Eliquis currently on hold for this. Baclofen ordered for muscle spasms. Radiodensity noted on xray, Dr. Patterson consulted, concern for possible foreign body. Echocardiogram is pending, blood cultures show no growth to date. Infectious disease consulted for her fever and headache. Objective - Vital Signs Vital signs: Vital Signs Temp 97.4 F L 12/26/17 04:00 Pulse 100 12/26/17 04:00 Resp 20 12/26/17 04:00 BP 172/95 12/26/17 04:00 Pulse Ox 95 12/26/17 04:00 Intake & Output 12/25/17 12/26/17 12/26/17 18:59 06:59 18:59 Intake Total 240 300 Balance 240 300 Weight 92.986 kg 91 kg Intake: Oral 240 300 Other: Voiding Method Toilet Toilet # Voids 1 - Exam - Constitutional General appearance: cooperative, no acute distress - EENT Eyes: anicteric sclerae, dentition normal, normal appearance ENT: hearing grossly normal, NA/AT, normal oropharynx - Neck Neck: normal ROM - Respiratory Respiratory: bilateral: CTA, wheezing, negative: diminished, dullness, rales, rhonchi, prolonged expiration - Cardiovascular Rhythm: regular Heart sounds: normal: S1, S2 Abnormal Heart Sounds: no systolic murmur, no diastolic murmur, no rub, no S3 Gallop, no S4 Gallop, no click, no other - Gastrointestinal General gastrointestinal: normal bowel sounds, soft - Integumentary Integumentary: decreased turgor, normal - Neurologic Neurologic: CNII-XII intact - Musculoskeletal Musculoskeletal: gait normal, generalized weakness - Psychiatric Psychiatric: A&O x's 3 - Labs CBC & Chem 7: 12/25/17 03:45 12/25/17 03:45 Labs: Abnormal Lab Results - Last 24 Hours (Table) 12/25/17 12/25/17 12/26/17 Range/Units 16:57 20:52 05:15 POC Glucose (mg/dL) 135 H 161 H (75-99) mg/dL Uric Acid 3.1 L (3.7-7.4) mg/dL 12/26/17 Range/Units 06:22 POC Glucose (mg/dL) 139 H (75-99) mg/dL Uric Acid (3.7-7.4) mg/dL Microbiology - Last 24 Hours (Table) 12/25/17 03:45 Blood Culture - Preliminary Blood No Growth after 24 hours 12/25/17 07:58 Group A Strep Throat Culture - Preliminary Throat 12/25/17 03:45 Urine Culture - Preliminary Urine,Voided Assessment and Plan Plan: 1. Acute exacerbation shortness of breath possibly related to of atrial fibrillation with rapid ventricular rate, systolic and diastolic CHF exacerbation presenting with increasing dyspnea and exertion, proBNP is 997, currently on Cardizem 30 mg 3 times a day, eliquis 2.5 mg twice a day patient is not on any beta avery prior to admission, she was started on metoprolol 50mg daily, Cardiology is consulted, echocardiogram pending, IV Lasix when necessary 2. Leukocytosis, sepsis is in the differential, we would need sed rate CRP, calcitonin level, and PAD, antibiotics, no source in the urine or the chest x- ray on routine exam however patient has mild cough, elevation possibly bilateral against phase reactant, infectious disease on consult 2. Chronic anticoagulation with eliquis no side effects or complications at this time maintain dosing no changes made, cautioned on the use ibuprofen specially with chronic anticoagulation 3. 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 Polyarthritis, Neuralgia right lower extremity with severe peripheral neuropathy. Underlying spinal stenosis cannot be ruled patient will be started on gabapentin 100 mg 3 times a day which would be titrated to symptom control 4. Underlying history of asthma active airway or COPD this was not clarified she was symptomatic, however these could be related to her CHF problems this needs to be reinvestigated and readdressed she mentions she has an appointment with Dr. Aviles as an outpatient and was scheduled by Dr. Wilfrid Burris. 5. Chronic pain syndrome for which she is on hydrocodone 6. Carotid artery stenosis with mild plaque no significant hemodynamic stenosis noted September 2015 7. Hyperlipidemia not on any statin prior to admission were based on her previous CVA, recommended this will be discussed with the patient however this is assured that it was discontinued in the past secondary to statin intolerance 8. Headache chronic also related with blurred vision, chronic bilateral history of cataract with IOL secondary cataracts cannot be ruled out, she needs imaging studies if she is not any better 9. Chronic sleep dysfunction melatonin 10 mg tablet will be started 10. Overactive bladder chronic not on any medications 11. Diabetes mellitus type 2 hemoglobin A1c is requested on metformin which would be restarted Accu-Cheks with NovoLog scale 12. Radio dense ingested material noted on x-ray, this seems to be around non- distinct nonmetallic type material on the gastric region. Significance is unknown 13. Occipital neuralgia. Consulted Dr. Matson for possible steroid epidural injection, Eliquis is on hold, Baclofen ordered. 14. Spinal stenosis. Dano for possible trigger injection GI prophylaxis and DVT prophylaxis provided she is on chronic anticoagulation for her atrial fibrillation The above impression and plan of care have been discussed and directed by signing physician. Mila Phillip nurse practitioner acting as scribe for signing physician.
[2017-12-26 15:22] LABS: Hemoglobin A1C 6.5 % (4.0-6.0)
[2017-12-26 16:44] LABS: Glucose,Whole Blood 214 mg/dL (75-99)
--- NOTE | 2017-12-26 18:34 | ECHOF ---
Referral Reason:shortness of breath chf MEASUREMENTS -------- HEIGHT: 149.9 cm WEIGHT: 90.7 kg BP: 172/95 RVIDd: 2.9 cm (< 3.3) IVSd: 1.3 cm (0.6 - 1.1) LVIDd: 3.5 cm (3.9 - 5.3) LVPWd: 1.3 cm (0.6 - 1.1) IVSs: 1.8 cm LVIDs: 2.4 cm LVPWs: 1.7 cm LA Diam: 3.2 cm (2.7 - 3.8) LAESV Index (A-L): 26.60 ml/m Ao Diam: 3.4 cm (2.0 - 3.7) MV EXCURSION: 14.230 mm (> 18.000) MV EF SLOPE: 70 mm/s (70 - 150) EPSS: 1.4 cm RAP: 5.00 mmHg RVSP: 63.73 mmHg FINDINGS -------- Atrial fibrillation. This was a technically difficult study with suboptimal views. The left ventricular size is normal. There is mild concentric left ventricular hypertrophy. Overa ll left ventricular systolic function is low-normal with, an EF between 50 - 55 %. The right ventricle is normal in size. Normal LA size by volume 22+/-6 ml/m2. The right atrium is normal in size. 3 ml of Lumason was utilized for enhancement of images. The aortic valve was not well visualized. The mitral valve leaflets are mildly thickened. Mild mitral annular calcification present. Mild m itral regurgitation is present. Mild tricuspid regurgitation present. There is severe pulmonary hypertension. The right ventricul ar systolic pressure, as measured by Doppler, is 63.73mmHg. The pulmonic valve was not well visualized. The aortic root size is normal. IVC Not well visulized. There is no pericardial effusion. CONCLUSIONS -------- 1. Atrial fibrillation. 2. This was a technically difficult study with suboptimal views. 3. The left ventricular size is normal. 4. There is mild concentric left ventricular hypertrophy. 5. Overall left ventricular systolic function is low-normal with, an EF between 50 - 55 %. 6. The right ventricle is normal in size. 7. Normal LA size by volume 22+/-6 ml/m2. 8. The right atrium is normal in size. 9. 3 ml of Lumason was utilized for enhancement of images. 10. The aortic valve was not well visualized. 11. The mitral valve leaflets are mildly thickened. 12. Mild mitral annular calcification present. 13. Mild mitral regurgitation is present. 14. Mild tricuspid regurgitation present. 15. There is severe pulmonary hypertension. 16. The right ventricular systolic pressure, as measured by Doppler, is 63.73mmHg. 17. The pulmonic valve was not well visualized. 18. The aortic root size is normal. 19. IVC Not well visulized. 20. There is no pericardial effusion. MAP AND CHART MOUNTER: Marylou Baker RDCS
[2017-12-26 20:44] LABS: Glucose,Whole Blood 127 mg/dL (75-99)
--- NOTE | 2017-12-26 21:16 | P.CONS ---
History of Present Illness - Reason for Consult Consult date: 12/26/17 - History of Present Illness This is 87 years old female with was presented to [facility] with a chief complaint of shortness of breath, and left-sided headache and severe neck pain, she reported that these symptoms started a few weeks ago on increased in intensity over the last few days, she is currently complaining of severe intense neck pain with radiation to the upper extremity associated with numbness and tingling sensation and also she is complaining of severe headache, patient currently on pain medication Joiner 7.5/325 3 times a day and also baclofen 10 mg 3 times a day, and this medication is not helping her to control her neck pain or headache, 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 fib , patient denies any focal neurological deficit except generalized weakness, also patient complaining of chronic low back pain and numbness and tingling in the lower extremity, she denies any motor or sensory deficits she denies any change in the bowel movement or urination, on admission had a septic like picture with the leukocytosis, and white count is 12.6 , but so far the blood culture was negative, there no source of infection ,as of now Past Medical History Past Medical History: Atrial Fibrillation, Heart Failure, GERD/Reflux, Hyperlipidemia, Hypertension, Osteoarthritis (OA), Respiratory Disorder, Sleep Apnea/CPAP/BIPAP, Thyroid Disorder Additional Past Medical History / Comment(s): DDD WITH BACK PAIN, OCCASIONAL SWELLING IN FEET-DENIES ANY NOW., USES C-PAP MACHINE. , FEELS LIKE SHE HAS A LUMP IN HER THROAT. History of Any Multi-Drug Resistant Organisms: None Reported Past Surgical History: Cholecystectomy, Hysterectomy, Joint Replacement Additional Past Surgical History / Comment(s): EGD for gastric reflux. Excision of lipomas. bilateral cataracts, total knee. Past Anesthesia/Blood Transfusion Reactions: No Reported Reaction Past Psychological History: Anxiety, Depression Smoking Status: Former smoker Past Alcohol Use History: None Reported Past Drug Use History: None Reported - Past Family History Brother(s) Family Medical History: Congestive Heart Failure (CHF), COPD, Coronary Artery Disease (CAD), Diabetes Mellitus Daughter(s) Additional Family Medical History / Comment(s): One from MVA Son(s) Family Medical History: Diabetes Mellitus, Hyperlipidemia, Hypertension Sister(s) Family Medical History: Cancer Mother Family Medical History: Dementia Father Family Medical History: COPD Additional Family Medical History / Comment(s): . Medications and Allergies Home Medications Medication Instructions Recorded Confirmed Type Omeprazole [PriLOSEC] 20 mg PO BID 06/02/15 12/25/17 History Sertraline [Zoloft] 25 mg PO DAILY 10/18/15 12/25/17 History Apixaban [Eliquis] 2.5 mg PO BID 02/14/16 12/25/17 History metFORMIN HCL [Glucophage] 850 mg PO AC-SUPPER #30 tab 02/17/16 12/25/17 Rx Diltiazem Oral [Cardizem Oral] 30 mg PO TID 09/02/16 12/25/17 History Losartan/Hydrochlorothiazide 1 tab PO DAILY 09/02/16 12/25/17 History [Hyzaar 100-25 Tablet] Fluticasone Nasal [place] [Flonase 1 spray EA NOSTRIL DAILY 03/30/17 12/25/17 History Nasal [place]] Amoxicillin See Taper PO DAILY 12/25/17 12/25/17 History HYDROcodone/APAP 7.5-325MG [Joiner 1 tab PO TID PRN 12/25/17 12/25/17 History 7.5-325] Ibuprofen [Advil] 400 mg PO DAILY PRN 12/25/17 12/25/17 History Allergies Allergy/AdvReac Type Severity Reaction Status Date / Time aspirin AdvReac SEE Verified 12/25/17 12:52 COMMENTS Physical Exam Vitals: Vital Signs Temp Pulse Resp BP Pulse Ox 12/26/17 16:00 100.9 F H 84 18 149/73 75 L 12/26/17 12:00 98.7 F 83 18 128/75 92 L 12/26/17 09:12 95 12/26/17 08:00 97.9 F 89 18 173/92 97 12/26/17 04:00 97.4 F L 100 20 172/95 95 12/26/17 00:00 96.1 F L 76 20 129/61 98 12/25/17 23:00 96.1 F L 76 20 129/61 98 Intake and Output 12/26/17 12/26/17 12/26/17 06:59 14:59 22:59 Intake Total 300 Balance 300 Intake: Oral 300 Other: Voiding Method Toilet Toilet Toilet # Voids 1 Weight 91 kg Social history : not smoker , NO ETOH , NO Illegal drugs use . Family history : positive for Physical Examinations : 1-Constitutional : Cooperative , not in acute distress . 2-HEENT : nech ; supple , no Lymphadenopathy , no Thyromegaly, neck movement associated with pain :eyes , no icterus, no photophobia . ENT : , normal oropharynx , no Thrush 3- Respiratory : Chest clear to auscultations Bilaterally , no wheezing . 4- Cardiovascular :ir regular rate and rhythem , S1 , S2 , no S3 , no S4. 5- Gastrointestinal: abdomen soft no tenderness , no organomegally . 6- Genitourinary : Defferred . 7-Integumentary : No cellulitis , no ulcers , normal skin turgor , no cyanotic . 8- neurologic : Cranial nerve II to XII intact , no focal neurological deffecit 9-psychatric : alert , oriented X 3 , appropriate affect , intact judgment and insight . 10-Lymphatic : no Lymphadenopathy. 11- musculoskeltal: Cervical Spine motor stregnth in the deltoid and biceps, normal right side , normal Left side motor stregnth biceps and the wrist extensors normal right side ,normal left side . motor stregnth in the triceps muscle . normal Right side , normal Left side deep tendon reflexes normal at the biceps , normal at Brachioradialis , normal at triceps. positive cervical facet loading test . Severe tenderness over the left occipital nerve Multiple trigger points identified in the left-sided cervical paravertebral muscles Lumber spine moter stegnth lower extremities ,thigh and legs 4/5 Right side , 4/5 Left side Results CBC & Chem 7: 12/25/17 03:45 12/25/17 03:45 Labs: Abnormal Lab Results - Last 24 Hours (Table) 12/25/17 12/26/17 12/26/17 Range/Units 03:45 05:15 06:22 POC Glucose (mg/dL) 139 H (75-99) mg/dL Hemoglobin A1c 6.5 H (4.0-6.0) % Uric Acid 3.1 L (3.7-7.4) mg/dL 12/26/17 12/26/17 12/26/17 Range/Units 11:50 16:41 20:42 POC Glucose (mg/dL) 141 H 214 H 127 H (75-99) mg/dL Hemoglobin A1c (4.0-6.0) % Uric Acid (3.7-7.4) mg/dL Microbiology - Last 24 Hours (Table) 12/25/17 03:45 Urine Culture - Final Urine,Voided 12/25/17 03:45 Blood Culture - Preliminary Blood No Growth after 24 hours 12/25/17 07:58 Group A Strep Throat Culture - Preliminary Throat Assessment and Plan Plan: Assessment and plan= 1 occipital neuralgia. Bilateral [place] more intense on the left side. 2-myofascial pain syndrome and cervical area. 3-cervical radiculopathy. 4-lumbar radiculopathy Recommend continue Joiner 7.5/325 every 8 hours., Continue baclofen 10 mg 3 times a day Start patient on Neurontin 200 mg twice a day , patient could benefit from Lidoderm patch to be applied to the left side of the neck Patient could benefit from Celebrex 200 mg , because [place] 2 inhibitor it will not interfere with blood thinner Eliquis , We'll order MRI of the cervical spine to identify the etiology of that is any new tiny herniated disc, We'll check the patient's dentist tomorrow and we 'll check the lab results if it's appropriate, we'll consider doing trigger point injection/ occipital nerve block , , review the MRI of the cervical spine report Time with Patient: Greater than 30
[2017-12-26] MEDS: MELOXICAM 7.5 MG TAB PO SCH (22:11)
[2017-12-26] MEDS: GABAPENTIN 100 MG CAP PO SCH (22:11)
[2017-12-27] MEDS: SODIUM CHLORIDE 0.9% 1,000 ML IV SCH ×3 (05:02→20:26)
[2017-12-27] MEDS: cefTRIAXone IN SWFI 2,000 MG/20 ML SYRINGE IVP SCH (05:02)
[2017-12-27 06:02] LABS: Glucose,Whole Blood 120 mg/dL (75-99)
[2017-12-27 06:43] LABS: ALT 39 U/L (9-52); AST 25 U/L (14-36); Albumin 3.4 g/dL (3.5-5.0); Alkaline Phosphatase 56 U/L (38-126); Anion Gap 10 mmol/L; Blood Urea Nitrogen 14 mg/dL (7-17); Calcium 8.1 mg/dL (8.4-10.2); Carbon Dioxide 32 mmol/L (22-30); Chloride 100 mmol/L (98-107); Glucose 130 mg/dL (74-99); Potassium 3.7 mmol/L (3.5-5.1); Sodium 142 mmol/L (137-145); Total Bilirubin 0.6 mg/dL (0.2-1.3); Total Protein 6.2 g/dL (6.3-8.2)
[2017-12-27] MEDS: PANTOPRAZOLE 40 MG TABLET PO SCH (06:45)
--- NOTE | 2017-12-27 07:15 | CONS ---
CONSULTATION DATE OF SERVICE: 12/26/2017. REASON FOR CONSULTATION: Fever. HISTORY OF PRESENT ILLNESS: The patient is an 87-year-old female presenting to the ER at [facility] yesterday morning with chief complaints of increasing shortness of breath. The patient's symptoms had been getting worse about a week or so. The patient has no complaining of generalized weakness and no energy. The patient did have very mild cough, but not bringing up any sputum. No significant diuresis. Some sore throat. No runny nose. No headache. No abdominal pain. No nausea, vomiting and no diarrhea. With these symptoms, the patient has been evaluated by the ER physician. On arrival to the ER, the patient did have a chest x-ray that has been no acute findings. The patient did have a fever of 101 degrees Fahrenheit. White count was elevated at 5.6, lactic acid was 2.3, elevated. Liver enzymes are normal. Urine was negative. The patient has been admitted hospital started on Rocephin. Infectious Disease was consulted for further recommendation regarding antibiotic therapy. REVIEW OF SYSTEMS: CONSTITUTIONAL: Positive for weakness along with the fever. EYES: No complaint. ENT: No complaint. RESPIRATORY: As per HPI. CARDIOVASCULAR: No complaint. GENITOURINARY: No complaint. GASTROINTESTINAL: No complaint. MUSCULOSKELETAL: Some neck pain. INTEGUMENT: No complaint. PSYCHOLOGICAL: No complaint. ENDOCRINE: No complaint. NEUROLOGICAL: No complaint. PAST MEDICAL HISTORY: Significant for atrial fibrillation, heart failure, gastroesophageal reflux disease, hypertension, hyperlipidemia, osteoarthritis, sleep apnea, hypothyroidism, disease. PAST SURGICAL HISTORY: Cholecystectomy, hysterectomy, EGD, lymphoma, total knee replacement, cataract surgery. SOCIAL HISTORY: Remote history of smoking. No drinking or drug use. FAMILY HISTORY: Brother with history of congestive heart failure. Son with history of diabetes and hyperlipidemia. Mother history of dementia. Father history COPD. ALLERGIES: TO ASPIRIN. MEDICATIONS: Include the patient is currently on Tylenol, [place], baclofen, Rocephin, diltiazem, Neurontin, , Dilaudid, NovoLog, Theragran, Mobic, Glucophage, Toprol XL, Narcan, Zofran, Protonix, Zoloft. EXAMINATION: Blood pressure is 149/73 with a pulse of 84, temperature of 100.9. She is 92% on room air. General description is an elderly female up in the chair in no distress. No tachypnea or accessory muscle of respiration use. HEENT: Shows no pallor or scleral icterus. Oral mucosa membrane is moist. NECK: Trachea central. No thyromegaly. LUNGS: Unlabored breathing. Decreased breath sounds in base. No wheeze. HEART: S1, S2. Regular rate and rhythm. ABDOMEN: Soft, no tenderness. No guarding or rigidity. EXTREMITIES: No edema of the feet. SKIN EXAMINATION: No rash or mass palpable. NEUROLOGIC: The patient is awake, alert, oriented. Mood and affect normal. LABS: Hemoglobin is 13.8, white count 12.6, BUN of 15, creatinine 0.60. Urine has been negative. Group B strep was negative. A blood culture currently pending. Urine is negative. Chest x-ray was negative. DIAGNOSTIC IMPRESSION AND PLAN: Patient admitted to the hospital with sepsis and patient did have fever and elevated white count, predominant respiratory symptoms with concern for likely underlying pneumonia to be on the top on the rest, though chest x-ray reported to be negative versus acute influenza less likely but not entirely excluded. PLAN: 1. We will try to obtain sputum for Gram stain culture and sensitivity. 2. Check influenza A and B PCR. 3. Repeat chest x-ray tomorrow. 4. We will keep the patient on Rocephin or add Zithromax. 5. We will follow up on the clinical condition and culture to further adjust medication if needed. Thank you for this consultation. Will follow this patient along with you. MMODL / IJN: [id number] /
[2017-12-27 07:30] LABS: Basophils % (A) 0 %; Eosinophils # (A) 0.1 k/uL (0-0.7); Eosinophils % (A) 1 %; HCT 39.1 % (34.0-46.0); HGB 13.1 gm/dL (11.4-16.0); Hypochromasia Slight; Lymphocytes # (A) 2.1 k/uL (1.0-4.8); Lymphocytes % (A) 18 %; MCH 30.1 pg (25.0-35.0); MCHC 33.5 g/dL (31.0-37.0); MCV 89.7 fL (80.0-100.0); Mean Platelet Volume 7.3; Monocytes # (A) 0.9 k/uL (0-1.0); Monocytes % (A) 8 %; Neutrophils # (A) 8.4 k/uL (1.3-7.7); Neutrophils % (A) 72 %; Platelet Count 230 k/uL (150-450); RBC 4.36 m/uL (3.80-5.40); RDW 13.6 % (11.5-15.5); WBC 11.7 k/uL (3.8-10.6)
[2017-12-27] MEDS: AZITHROMYCIN 500 MG TAB PO SCH (07:49)
[2017-12-27] MEDS: BACLOFEN 10 MG TAB PO SCH ×3 (07:49→20:31)
[2017-12-27] MEDS: DILTIAZEM ORAL 30 MG TAB PO SCH ×3 (07:49→20:31)
[2017-12-27] MEDS: INSULIN ASPART 100 UNIT/ML 1 ML 10 ML VIAL SQ SCH ×4 (07:49→21:26)
[2017-12-27] MEDS: FLUTICASONE 50MCG/SPRAY NASAL 16GM EA NOSTRIL SCH (07:49)
[2017-12-27] MEDS: METOPROLOL SUCCINATE (ER) 50 MG TAB.ER.24H PO SCH (07:50)
[2017-12-27] MEDS: GABAPENTIN 100 MG CAP PO SCH ×2 (07:50→20:31)
[2017-12-27] MEDS: MELOXICAM 7.5 MG TAB PO SCH (07:50)
[2017-12-27] MEDS: LOSARTAN-HCTZ 50-12.5 MG 1 EACH TAB PO SCH (07:50)
[2017-12-27] MEDS: LIDOCAINE 5% PATCH TOPICAL SCH (07:50)
[2017-12-27] MEDS: SERTRALINE 25 MG TAB PO SCH (07:51)
--- NOTE | 2017-12-27 09:04 | XR ---
EXAMINATION TYPE: XR chest 2V DATE OF EXAM: 12/27/2017 COMPARISON: 12/25/2017 HISTORY: Fever. TECHNIQUE: Frontal and lateral views of the chest are obtained. FINDINGS: Retrocardiac opacity has developed in now blunts the costophrenic angle. This could relate to small pleural effusion or left basilar airspace disease. Additionally there is new mild interstit ial edema and left midlung stable atelectasis. Right infrahilar density likely represents confluence of pulmonary vasculature. Cardiomegaly is present. Mild degenerative changes of the thoracic spine an d acromio clavicular joints are seen. IMPRESSION: 1. New confluent left basilar opacity blunting the costophrenic angle may represent a small pleural e ffusion or left basilar airspace disease. 2. New mild fluid overload with mild interstitial edema and right infrahilar airspace disease that li george represents more confluent edema.
--- NOTE | 2017-12-27 10:10 | MR ---
EXAMINATION TYPE: MR cervical spine wo con DATE OF EXAM: 12/27/2017 COMPARISON: Plain films 12/25/2017 HISTORY: cervical radiculopathy TECHNIQUE: Multiplanar, multisequence images of the cervical spine were acquired. C2-C3: No evidence for degenerative disc disease. No disc bulge/herniation or protrusion. No Canal stenosis. Foramina are patent bilaterally. C3-C4: Posterior extension of endplate disc complex results in moderate to severe central stenosis, t here is bilateral foraminal encroachment due to lateral extension endplate disc complex. Suspect ther e is increased cord signal on T2-weighted sequences sagittal image 8, axial image 35. C4-C5: Lateral extension of endplate disc complex extends to cause some foraminal encroachment greate r on the left, there is a small central posterior disc herniation causing mild anterior mass effect o n the thecal sac C5-C6: Posterior disc herniation results in moderate to severe central canal stenosis, bilateral fora frederick encroachment is suspected. C6-C7: There is a large posterior disc herniation present, suspect moderate to severe central canal s tenosis, bilateral foraminal encroachment. C7-T1: No evidence for degenerative disc disease. No disc bulge/herniation or protrusion. No Canal stenosis. Foramina are patent bilaterally. Exam is somewhat limited technically, there is motion. Cervical segments are intact. There is retrol isthesis grade 1 C3-4, multilevel spondylosis with endplate discogenic marrow signal changes are pres ent, is associated loss of disc height signal greatest at C3-4, C4-5, C5-6 and C6-7. Cervical spinal cord signal is not well evaluated. Craniovertebral junction relationships are within normal limits. IMPRESSION: Multilevel severe degenerative disc disease with spinal stenosis, there may be some gliosis, signal c hange within the cervical cord especially at C3-4 however evaluation the cervical cord is limited. Ex am shows extensive artifact and is limited.
[2017-12-27 11:39] LABS: Glucose,Whole Blood 120 mg/dL (75-99)
--- NOTE | 2017-12-27 11:42 | P.PN ---
Subjective This a pleasant 87-year-old lady patient of Dr. Wilfrid Burris/ Dr Patterson. 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 She also has neck pain, polyarthritis, no pleurisy, slight cough , no new motor or neurologic deficits except weakness, She tried using her nebulizer treatments which is normally once a week now has used 3 times per day with no relief. She was seen in emergency room with septic-like picture with left shift and mild leukocytosis, without any source of infection. Chest x-ray failed to reveal an acute infiltrate however there is a radiodense ingested material noted on chest x-ray, urinalysis is normal. She comes in with A. fib with RVR, heart rate in the 110s She is evaluated in the emergency room showing an EKG in A. fib with rapid ventricular rate heart rate in the 120s at the time of admission. There is no ST segment elevation or depression. She was last seen by Dr. Dr. Patterson cardiology 4 weeks ago and was transitioned to eliquis from coumadin and she has chronic low back pain low back pain with numbness below the knee suspicious of L5 S1 radiculopathy, also has a headache for several years now mainly left side without any neurologic complaints she has dizziness and blurred vision for over 1 year and she also has insomnia, constipation and increasing weakness no recent falls at home intermittently she requires a cane for ambulation 12/26: Patient evaluated today, family at bedside. Heart rate running in the 100's , she is hypertensive at 173/92, she is receiving hyzaar, metoprolol, and cardizem. She complains of quit a bit of back and neck pain, she has a previous MRI that showed spinal stenosis. Consulted Al-Robert for possible steroid epidural injection for her spinal stenosis and pain and trigger injection for occipital neuralgia, Eliquis currently on hold for this. Baclofen ordered for muscle spasms. Radiodensity noted on xray, Dr. Patterson consulted, concern for possible foreign body. Echocardiogram is pending, blood cultures show no growth to date. Infectious disease consulted for her fever and headache. 12/27: Patient consulted by Dano, recommends MRI of cervical spine, and possible occipital trigger injection after review of the MRI, will hold Eliquis for another day. Blood cultures show no growth to date. There has not been any source of infection. Infectious disease is consulted recommends checking influenza, sputum culture, repeat chest x-ray. Patient continues on Rocephin and azithromycin. Patient afebrile today. Objective - Vital Signs Vital signs: Vital Signs Temp 97 F L 12/27/17 07:46 Pulse 80 12/27/17 07:57 Resp 17 12/27/17 07:57 BP 155/80 12/27/17 07:46 Pulse Ox 96 12/27/17 07:47 Intake & Output 12/26/17 12/27/17 12/27/17 18:59 06:59 18:59 Intake Total 300 1200 Balance 300 1200 Weight 91.3 kg Intake: Intake, IV Titration 1200 Amount Sodium Chloride 0.9% 1, 1200 000 ml @ 100 mls/hr IV . Q10H [facility] Rx#:[id number] Oral 300 Other: Voiding Method Toilet Toilet Toilet Diaper Diaper # Voids 1 1 # Bowel Movements 1 - Exam - Constitutional General appearance: cooperative, no acute distress - EENT Eyes: anicteric sclerae, dentition normal, normal appearance ENT: hearing grossly normal, NA/AT, normal oropharynx - Neck Neck: normal ROM - Respiratory Respiratory: bilateral: CTA, wheezing, negative: diminished, dullness, rales, rhonchi, prolonged expiration - Cardiovascular Rhythm: regular Heart sounds: normal: S1, S2 Abnormal Heart Sounds: no systolic murmur, no diastolic murmur, no rub, no S3 Gallop, no S4 Gallop, no click, no other - Gastrointestinal General gastrointestinal: normal bowel sounds, soft - Integumentary Integumentary: decreased turgor, normal - Neurologic Neurologic: CNII-XII intact - Musculoskeletal Musculoskeletal: gait normal, generalized weakness - Psychiatric Psychiatric: A&O x's 3 - Labs CBC & Chem 7: 12/27/17 05:35 12/27/17 05:35 Labs: Abnormal Lab Results - Last 24 Hours (Table) 12/25/17 12/26/17 12/26/17 Range/Units 03:45 11:50 16:41 WBC (3.8-10.6) k/uL Neutrophils # (1.3-7.7) k/uL Carbon Dioxide (22-30) mmol/L Creatinine (0.52-1.04) mg/dL Glucose (74-99) mg/dL POC Glucose (mg/dL) 141 H 214 H (75-99) mg/dL Hemoglobin A1c 6.5 H (4.0-6.0) % Calcium (8.4-10.2) mg/dL Total Protein (6.3-8.2) g/dL Albumin (3.5-5.0) g/dL 12/26/17 12/27/17 12/27/17 Range/Units 20:42 05:35 05:35 WBC 11.7 H (3.8-10.6) k/uL Neutrophils # 8.4 H (1.3-7.7) k/uL Carbon Dioxide 32 H (22-30) mmol/L Creatinine 0.49 L (0.52-1.04) mg/dL Glucose 130 H (74-99) mg/dL POC Glucose (mg/dL) 127 H (75-99) mg/dL Hemoglobin A1c (4.0-6.0) % Calcium 8.1 L (8.4-10.2) mg/dL Total Protein 6.2 L (6.3-8.2) g/dL Albumin 3.4 L (3.5-5.0) g/dL 12/27/17 Range/Units 06:00 WBC (3.8-10.6) k/uL Neutrophils # (1.3-7.7) k/uL Carbon Dioxide (22-30) mmol/L Creatinine (0.52-1.04) mg/dL Glucose (74-99) mg/dL POC Glucose (mg/dL) 120 H (75-99) mg/dL Hemoglobin A1c (4.0-6.0) % Calcium (8.4-10.2) mg/dL Total Protein (6.3-8.2) g/dL Albumin (3.5-5.0) g/dL Microbiology - Last 24 Hours (Table) 12/25/17 03:45 Blood Culture - Preliminary Blood No Growth after 48 hours 12/25/17 03:45 Urine Culture - Final Urine,Voided Assessment and Plan Plan: 1. Acute exacerbation shortness of breath possibly related to of atrial fibrillation with rapid ventricular rate, systolic and diastolic CHF exacerbation presenting with increasing dyspnea and exertion, proBNP is 997, currently on Cardizem 30 mg 3 times a day, eliquis 2.5 mg twice a day patient is not on any beta avery prior to admission, she was started on metoprolol 50mg daily, Cardiology is consulted, echocardiogram pending, IV Lasix when necessary 2. Leukocytosis, sepsis is in the differential, we would need sed rate CRP, calcitonin level, and PAD, antibiotics, no source in the urine or the chest x- ray on routine exam however patient has mild cough, elevation possibly bilateral against phase reactant, infectious disease on consult 2. Chronic anticoagulation with eliquis no side effects or complications at this time maintain dosing no changes made, cautioned on the use ibuprofen specially with chronic anticoagulation 3. 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 Polyarthritis, Neuralgia right lower extremity with severe peripheral neuropathy. Underlying spinal stenosis cannot be ruled patient will be started on gabapentin 100 mg 3 times a day which would be titrated to symptom control 4. Underlying history of asthma active airway or COPD this was not clarified she was symptomatic, however these could be related to her CHF problems this needs to be reinvestigated and readdressed she mentions she has an appointment with Dr. Aviles as an outpatient and was scheduled by Dr. Wilfrid Burris. 5. Chronic pain syndrome for which she is on hydrocodone 6. Carotid artery stenosis with mild plaque no significant hemodynamic stenosis noted September 2015 7. Hyperlipidemia not on any statin prior to admission were based on her previous CVA, recommended this will be discussed with the patient however this is assured that it was discontinued in the past secondary to statin intolerance 8. Headache chronic also related with blurred vision, chronic bilateral history of cataract with IOL secondary cataracts cannot be ruled out, she needs imaging studies if she is not any better 9. Chronic sleep dysfunction melatonin 10 mg tablet will be started 10. Overactive bladder chronic not on any medications 11. Diabetes mellitus type 2 hemoglobin A1c is requested on metformin which would be restarted Accu-Cheks with NovoLog scale 12. Radio dense ingested material noted on x-ray, this seems to be around non- distinct nonmetallic type material on the gastric region. Significance is unknown 13. Occipital neuralgia. Consulted Dr. Matson for possible steroid epidural injection, Eliquis is on hold, Baclofen ordered. 14. Spinal stenosis. Dano for possible trigger injection GI prophylaxis and DVT prophylaxis provided she is on chronic anticoagulation for her atrial fibrillation The above impression and plan of care have been discussed and directed by signing physician. Mila Phillip nurse practitioner acting as scribe for signing physician.
--- NOTE | 2017-12-27 15:47 | P.PN ---
Subjective Progress Note Date: 12/27/17 THis is a pleasant 87-year-old female with chronic multiple and complex medical problems including hypertension, chronic atrial fibrillation, on ELiquis, diabetes. She presented to the hospital with complaints of shortness of breath and left-sided headache and facial pain. On initial presentation, she had mild fever and elevated lactic acid level. FOcus of infection is undetermined at this time. EKG showed atrial fibrillation with RVR with nonspecific ST-T waves abnormalities. Heart rate is currently better controlled but patient continues to complain of shortness of breath. She has known LV systolic function of 45%. BNP is not elevated at 997. SHe has history of cath showing normal coronaries and subsequent negative stress testing. She continues to have facial and neck pain. SHe underwent MRI this morning. Objective - Vital Signs Vital signs: Vital Signs Temp 97 F L 12/27/17 07:46 Pulse 78 12/27/17 11:36 Resp 17 12/27/17 11:36 BP 173/84 12/27/17 11:36 Pulse Ox 95 12/27/17 11:36 Intake & Output 12/26/17 12/27/17 12/27/17 18:59 06:59 18:59 Intake Total 300 1200 Balance 300 1200 Weight 91.3 kg Intake: Intake, IV Titration 1200 Amount Sodium Chloride 0.9% 1, 1200 000 ml @ 100 mls/hr IV . Q10H [facility] Rx#:[id number] Oral 300 Other: Voiding Method Toilet Toilet Toilet Diaper Diaper # Voids 1 1 # Bowel Movements 1 - Constitutional General appearance: Present: obese - EENT Eyes: Absent: abnormal pupil, anicteric sclerae, disc margins sharp, edentulous , EOMI, PERRLA, fundus normal, photophobia, dentition normal, poor dentition, ptosis, scleral icterus, normal appearance ENT: Present: hard of hearing - Neck Neck: Absent: lymphadenopathy, normal ROM, other, rigidity, stridor, thyromegaly - Respiratory Respiratory: bilateral: CTA - Cardiovascular Rhythm: irregularly irregular Heart sounds: normal: S1, S2 Abnormal Heart Sounds: Absent: systolic murmur, diastolic murmur, rub, S3 Gallop , S4 Gallop, click, other - Gastrointestinal General gastrointestinal: Absent: absent bowel sounds, decreased bowel sounds, distended, hepatomegaly, hyperactive bowel sounds, normal bowel sounds, organomegaly, rigid, scaphoid, soft, splenomegaly, tenderness, umbilical hernia , ventral hernia - Musculoskeletal Musculoskeletal: Present: generalized weakness - Psychiatric Psychiatric: Present: A&O x's 3 - Labs CBC & Chem 7: 12/27/17 05:35 12/27/17 05:35 Labs: Abnormal Lab Results - Last 24 Hours (Table) 12/25/17 12/26/17 12/26/17 Range/Units 03:45 16:41 20:42 WBC (3.8-10.6) k/uL Neutrophils # (1.3-7.7) k/uL Carbon Dioxide (22-30) mmol/L Creatinine (0.52-1.04) mg/dL Glucose (74-99) mg/dL POC Glucose (mg/dL) 214 H 127 H (75-99) mg/dL Hemoglobin A1c 6.5 H (4.0-6.0) % Calcium (8.4-10.2) mg/dL Total Protein (6.3-8.2) g/dL Albumin (3.5-5.0) g/dL 12/27/17 12/27/17 12/27/17 Range/Units 05:35 05:35 06:00 WBC 11.7 H (3.8-10.6) k/uL Neutrophils # 8.4 H (1.3-7.7) k/uL Carbon Dioxide 32 H (22-30) mmol/L Creatinine 0.49 L (0.52-1.04) mg/dL Glucose 130 H (74-99) mg/dL POC Glucose (mg/dL) 120 H (75-99) mg/dL Hemoglobin A1c (4.0-6.0) % Calcium 8.1 L (8.4-10.2) mg/dL Total Protein 6.2 L (6.3-8.2) g/dL Albumin 3.4 L (3.5-5.0) g/dL 12/27/17 Range/Units 11:36 WBC (3.8-10.6) k/uL Neutrophils # (1.3-7.7) k/uL Carbon Dioxide (22-30) mmol/L Creatinine (0.52-1.04) mg/dL Glucose (74-99) mg/dL POC Glucose (mg/dL) 120 H (75-99) mg/dL Hemoglobin A1c (4.0-6.0) % Calcium (8.4-10.2) mg/dL Total Protein (6.3-8.2) g/dL Albumin (3.5-5.0) g/dL Microbiology - Last 24 Hours (Table) 12/25/17 07:58 Group A Strep Throat Culture - Final Throat 12/25/17 03:45 Blood Culture - Preliminary Blood No Growth after 48 hours 12/25/17 03:45 Urine Culture - Final Urine,Voided Assessment and Plan Assessment: #1 shortness of breath likely related to morbid obesity and hypertensive heart disease, symptoms persist with well controlled heart rate #2 atrial fibrillation with poorly controlled ventricular rate, currently well controlled. #3 Diabetes #4 possible sepsis of unknown origin #5 uncontrolled hypertension Plan: From cardiology's perspective, medications were reviewed we will continue the same. From our standpoint, patient may be discharged home once cleared by primary. The above dictated assessment and findings were discussed with signing physician. The impression and plan of care have been directed as dictated. Juana Goldberg, Nurse Practitioner, acting as scribe for signing physician.
[2017-12-27 17:00] LABS: Glucose,Whole Blood 138 mg/dL (75-99)
[2017-12-27] MEDS: amLODIPine 5 MG TAB PO SCH (20:31)
[2017-12-27 21:23] LABS: Glucose,Whole Blood 154 mg/dL (75-99)
[2017-12-28] MEDS: cefTRIAXone IN SWFI 2,000 MG/20 ML SYRINGE IVP SCH (03:56)
[2017-12-28] MEDS: SODIUM CHLORIDE 0.9% 1,000 ML IV SCH ×2 (05:47→16:41)
[2017-12-28 06:11] LABS: Basophils % (A) 0 %; Eosinophils # (A) 0.1 k/uL (0-0.7); Eosinophils % (A) 1 %; HGB 12.3 gm/dL (11.4-16.0); Lymphocytes # (A) 1.5 k/uL (1.0-4.8); Lymphocytes % (A) 19 %; MCH 28.2 pg (25.0-35.0); MCHC 31.5 g/dL (31.0-37.0); MCV 89.7 fL (80.0-100.0); Mean Platelet Volume 6.8; Monocytes # (A) 0.3 k/uL (0-1.0); Monocytes % (A) 4 %; Neutrophils % (A) 75 %; Platelet Count 266 k/uL (150-450); RBC 4.35 m/uL (3.80-5.40); RDW 13.9 % (11.5-15.5)
[2017-12-28 06:21] LABS: Glucose,Whole Blood 122 mg/dL (75-99)
[2017-12-28 06:21] LABS: ALT 38 U/L (9-52); AST 24 U/L (14-36); Albumin 3.5 g/dL (3.5-5.0); Alkaline Phosphatase 58 U/L (38-126); Anion Gap 9 mmol/L; Blood Urea Nitrogen 13 mg/dL (7-17); Calcium 8.5 mg/dL (8.4-10.2); Carbon Dioxide 38 mmol/L (22-30); Chloride 97 mmol/L (98-107); Glucose 141 mg/dL (74-99); Potassium 3.5 mmol/L (3.5-5.1); Sodium 144 mmol/L (137-145); Total Bilirubin 0.5 mg/dL (0.2-1.3); Total Protein 6.1 g/dL (6.3-8.2)
[2017-12-28] MEDS: INSULIN ASPART 100 UNIT/ML 1 ML 10 ML VIAL SQ SCH ×4 (06:31→21:28)
[2017-12-28] MEDS: PANTOPRAZOLE 40 MG TABLET PO SCH (06:39)
[2017-12-28] MEDS: ACETAMINOPHEN TAB 325 MG TAB PO PRN (08:06)
[2017-12-28] MEDS: LIDOCAINE 5% PATCH TOPICAL SCH (09:03)
[2017-12-28] MEDS: GABAPENTIN 100 MG CAP PO SCH ×2 (09:04→20:15)
[2017-12-28] MEDS: AZITHROMYCIN 500 MG TAB PO SCH (09:04)
[2017-12-28] MEDS: BACLOFEN 10 MG TAB PO SCH ×3 (09:04→20:16)
[2017-12-28] MEDS: MELOXICAM 7.5 MG TAB PO SCH (09:05)
[2017-12-28] MEDS: FLUTICASONE 50MCG/SPRAY NASAL 16GM EA NOSTRIL SCH ×2 (09:05→20:16)
[2017-12-28] MEDS: LOSARTAN-HCTZ 50-12.5 MG 1 EACH TAB PO SCH (09:05)
[2017-12-28] MEDS: DILTIAZEM ORAL 30 MG TAB PO SCH ×3 (09:06→20:16)
[2017-12-28] MEDS: SERTRALINE 25 MG TAB PO SCH (09:06)
[2017-12-28] MEDS: METOPROLOL SUCCINATE (ER) 50 MG TAB.ER.24H PO SCH (09:06)
[2017-12-28] MEDS ORDERED: FUROSEMIDE 10 MG/ML 4 ML VIAL IV STA (10:16)
--- NOTE | 2017-12-28 10:26 | P.PN ---
Subjective Progress Note Date: 12/28/17 Principal diagnosis: Shortness of breath This is a pleasant 87-year-old female with chronic multiple and complex medical problems including hypertension, chronic atrial fibrillation, on Eliquis, diabetes, obstructive sleep apnea, and severe pulmonary hypertension. She presented to the hospital with complaints of shortness of breath and left- sided headache and facial pain. On initial presentation, she had mild fever and elevated lactic acid level. The source of infection is unknown at this point. The patient is in process to be seen by an infectious disease service. The EKG showed atrial fibrillation with RVR with nonspecific ST-T waves abnormalities. Heart rate is currently better controlled but patient continues to complain of shortness of breath. She has known LV systolic function of 45%. BNP is not elevated at 997. She had a cath showing normal coronaries. On follow-up with the patient today, she stated that she is more short of breath than normal. She does have diminished breathing sounds bilaterally and severe bilateral lower extremities edema which could be related to the severe pulmonary hypertension she does have. She was given a dose of Lasix earlier today. We'll repeat the chest x-ray and also repeat the BNP. Objective - Vital Signs Vital signs: Vital Signs Temp 97.4 F L 12/28/17 04:00 Pulse 86 12/28/17 04:00 Resp 18 12/28/17 04:00 BP 146/68 12/28/17 04:00 Pulse Ox 98 12/28/17 04:00 Intake & Output 12/27/17 12/28/17 12/28/17 18:59 06:59 18:59 Intake Total 100 20 Balance 100 20 Weight 95 kg Intake: IV 10 0.9 10 Intake, IV Titration 10 Amount Sodium Chloride 0.9% 1, 10 000 ml @ 100 mls/hr IV . Q10H [facility] Rx#:[id number] Oral 100 Other: Voiding Method Toilet Toilet Diaper Diaper - Constitutional General appearance: Present: no acute distress - Respiratory Respiratory: bilateral: diminished - Cardiovascular Rhythm: irregularly irregular Heart sounds: normal: S1, S2 - Labs CBC & Chem 7: 12/28/17 05:56 12/28/17 05:56 Labs: Abnormal Lab Results - Last 24 Hours (Table) 12/27/17 12/27/17 12/27/17 Range/Units 11:36 16:31 21:22 Chloride (98-107) mmol/L Carbon Dioxide (22-30) mmol/L Creatinine (0.52-1.04) mg/dL Glucose (74-99) mg/dL POC Glucose (mg/dL) 120 H 138 H 154 H (75-99) mg/dL Total Protein (6.3-8.2) g/dL 12/28/17 12/28/17 Range/Units 05:56 06:19 Chloride 97 L (98-107) mmol/L Carbon Dioxide 38 H (22-30) mmol/L Creatinine 0.48 L (0.52-1.04) mg/dL Glucose 141 H (74-99) mg/dL POC Glucose (mg/dL) 122 H (75-99) mg/dL Total Protein 6.1 L (6.3-8.2) g/dL Microbiology - Last 24 Hours (Table) 12/25/17 03:45 Blood Culture - Preliminary Blood No Growth after 72 hours 12/25/17 07:58 Group A Strep Throat Culture - Final Throat Assessment and Plan Assessment: Assessment #1 shortness of breath which is likely related to multiple reasons including a component of heart failure as well as component of severe pulmonary hypertension as well as morbid obesity #2 mild nonischemic cardiomyopathy #3 chronic atrial fibrillation was controlled heart rate #4 morbid obesity #5 obstructive sleep apnea Plan #1 the patient was given a dose of Lasix earlier today. #2 obtain a chest x-ray and BNP #3 follow-up with the patient.
[2017-12-28] MEDS: methylPREDNISolone SOD SUCCI 125 MG/2 ML VIAL IV SCH ×3 (11:27→23:40)
--- NOTE | 2017-12-28 11:40 | P.CONS ---
History of Present Illness - Reason for Consult Consult date: 12/27/17 Abdominal pain and radiodensity on x-ray. - History of Present Illness The patient is an 87-year-old female with underlying history of chronic atrial fibrillation on long-term anticoagulation with Eliquis, CVA/TIA embolic phenomenon in September 2015, systolic dysfunction with ejection fraction of 45-50% , hypertension, also arthritis, systolic CHF obstructive sleep apnea GERD hyperlipidemia peripheral neuropathy right-sided sciatica and PAD, was admitted to the hospital after she had some initial complaints off increasing shortness of breath for the past 4 weeks which has gradually increased in intensity. She also has neck pain, polyarthritis, no pleurisy, slight cough, no new motor or neurologic deficits except weakness, She tried using her nebulizer treatments which is normally once a week now has used 3 times per day with no relief. In the emergency room was noted to have septic-like picture with left shift and mild leukocytosis, without any source of infection. Chest x-ray failed to reveal an acute infiltrate, however, there is a 2,5 cm radiodense over the lower thoracic spine possibly representing ingested material. We are asked to see her regarding this and some abdominal pain. She has chronic low back pain low back pain with numbness below the knee suspicious of L5 S1 radiculopathy, also has a headache for several years now mainly left side without any neurologic complaints she has dizziness and blurred vision for over 1 year and she also has insomnia, constipation and increasing weakness no recent falls at home intermittently she requires a cane for ambulation. She has history of chronic reflux disease. At this time, she is denying any dysphagia, odynophagia, hematemesis or hematochezia. She has issues with constipation as mentioned above but no recent change in bowel habits. No urinary symptoms and her urinalysis was normal without hematuria. Review of Systems Constitutional: Denied fever, chills or unintentional weight loss Neurologic: No headaches, double vision or other sensory or motor changes Cardiopulmonary: No chest pains, shortness of breath or palpitations Gastrointestinal: See present illness above Genitourinary: No hematuria, dysuria or frequency Musculoskeletal:No joint swelling or pain Skin: No rashes Hematologic: No bleeding tendency Psychiatric: No anxiety or depression Past Medical History Past Medical History: Atrial Fibrillation, Heart Failure, GERD/Reflux, Hyperlipidemia, Hypertension, Osteoarthritis (OA), Respiratory Disorder, Sleep Apnea/CPAP/BIPAP, Thyroid Disorder Additional Past Medical History / Comment(s): DDD WITH BACK PAIN, OCCASIONAL SWELLING IN FEET-DENIES ANY NOW., USES C-PAP MACHINE. , FEELS LIKE SHE HAS A LUMP IN HER THROAT. History of Any Multi-Drug Resistant Organisms: None Reported Past Surgical History: Cholecystectomy, Hysterectomy, Joint Replacement Additional Past Surgical History / Comment(s): EGD for gastric reflux. Excision of lipomas. bilateral cataracts, total knee. Past Anesthesia/Blood Transfusion Reactions: No Reported Reaction Past Psychological History: Anxiety, Depression Smoking Status: Former smoker Past Alcohol Use History: None Reported Past Drug Use History: None Reported - Past Family History Brother(s) Family Medical History: Congestive Heart Failure (CHF), COPD, Coronary Artery Disease (CAD), Diabetes Mellitus Daughter(s) Additional Family Medical History / Comment(s): One from MVA Son(s) Family Medical History: Diabetes Mellitus, Hyperlipidemia, Hypertension Sister(s) Family Medical History: Cancer Mother Family Medical History: Dementia Father Family Medical History: COPD Additional Family Medical History / Comment(s): . Medications and Allergies Home Medications Medication Instructions Recorded Confirmed Type Omeprazole [PriLOSEC] 20 mg PO BID 06/02/15 12/25/17 History Sertraline [Zoloft] 25 mg PO DAILY 10/18/15 12/25/17 History Apixaban [Eliquis] 2.5 mg PO BID 02/14/16 12/25/17 History metFORMIN HCL [Glucophage] 850 mg PO AC-SUPPER #30 tab 02/17/16 12/25/17 Rx Diltiazem Oral [Cardizem Oral] 30 mg PO TID 09/02/16 12/25/17 History Losartan/Hydrochlorothiazide 1 tab PO DAILY 09/02/16 12/25/17 History [Hyzaar 100-25 Tablet] Fluticasone Nasal [place] [Flonase 1 spray EA NOSTRIL DAILY 03/30/17 12/25/17 History Nasal [place]] Amoxicillin See Taper PO DAILY 12/25/17 12/25/17 History HYDROcodone/APAP 7.5-325MG [[place] 1 tab PO TID PRN 12/25/17 12/25/17 History 7.5-325] Ibuprofen [Advil] 400 mg PO DAILY PRN 12/25/17 12/25/17 History Allergies Allergy/AdvReac Type Severity Reaction Status Date / Time aspirin AdvReac SEE Verified 12/25/17 12:52 COMMENTS Physical Exam Vitals: Vital Signs Temp Pulse Resp BP Pulse Ox 12/27/17 20:33 98 12/27/17 20:00 97.4 F L 76 18 144/100 98 12/27/17 15:43 78 17 12/27/17 11:36 78 17 173/84 95 12/27/17 07:57 80 17 12/27/17 07:47 96 12/27/17 07:46 97 F L 80 17 155/80 99 12/27/17 04:00 96.3 F L 74 18 178/93 100 12/27/17 00:00 100.0 F H 81 18 135/80 94 L Intake and Output 12/27/17 12/27/17 12/27/17 06:59 14:59 22:59 Intake Total 1200 110 Balance 1200 110 Intake: Intake, IV Titration 1200 10 Amount Sodium Chloride 0.9% 1, 1200 10 000 ml @ 100 mls/hr IV . Q10H [facility] Rx#:[id number] Oral 100 Other: Voiding Method Toilet Toilet Toilet Diaper Diaper Diaper # Voids 1 # Bowel Movements 1 Weight 91.3 kg General: Appears stated age, very pleasant in no acute distress Head and neck: Normocephalic and atraumatic, conjunctivae pink and sclerae not icteric, mucous membranes moist and pink. No masses in the neck or tracheal shifts Lungs: Clear to auscultation with no dullness to percussion Heart: Irregular, no abnormal sounds, murmurs, gallops or friction Abdomen: Soft, no masses or organomegalies. No tenderness. Bowel sounds present Extremities: No clubbing, cyanosis or edema Neurologic: Alert and oriented 3. Cranial nerves grossly intact. No gross sensory or motor abnormalities Results CBC & Chem 7: 12/28/17 05:56 12/28/17 05:56 Labs: Abnormal Lab Results - Last 24 Hours (Table) 12/27/17 12/27/17 12/27/17 Range/Units 05:35 05:35 06:00 WBC 11.7 H (3.8-10.6) k/uL Neutrophils # 8.4 H (1.3-7.7) k/uL Carbon Dioxide 32 H (22-30) mmol/L Creatinine 0.49 L (0.52-1.04) mg/dL Glucose 130 H (74-99) mg/dL POC Glucose (mg/dL) 120 H (75-99) mg/dL Calcium 8.1 L (8.4-10.2) mg/dL Total Protein 6.2 L (6.3-8.2) g/dL Albumin 3.4 L (3.5-5.0) g/dL 12/27/17 12/27/17 12/27/17 Range/Units 11:36 16:31 21:22 WBC (3.8-10.6) k/uL Neutrophils # (1.3-7.7) k/uL Carbon Dioxide (22-30) mmol/L Creatinine (0.52-1.04) mg/dL Glucose (74-99) mg/dL POC Glucose (mg/dL) 120 H 138 H 154 H (75-99) mg/dL Calcium (8.4-10.2) mg/dL Total Protein (6.3-8.2) g/dL Albumin (3.5-5.0) g/dL Microbiology - Last 24 Hours (Table) 12/25/17 07:58 Group A Strep Throat Culture - Final Throat 12/25/17 03:45 Blood Culture - Preliminary Blood No Growth after 48 hours Assessment and Plan Assessment: Opacity on chest x-ray probably representing ingested material. Patient has history of reflux disease and constipation and do not have any new GI complaints. Plan: Agree with your current management. We will compare with future x-rays or CT scans if performed and follow-up on the radiopacity which I do not believe it is of clinical significance. I did not schedule any endoscopy at this time. I will discuss with you and follow with interest.
[2017-12-28 12:05] LABS: Glucose,Whole Blood 181 mg/dL (75-99)
[2017-12-28] MEDS: IPRATROPIUM-ALBUTEROL 3 ML NEB INHALATION SCH ×3 (12:11→19:01)
--- NOTE | 2017-12-28 13:19 | CT ---
EXAMINATION TYPE: CT chest wo con DATE OF EXAM: 12/28/2017 COMPARISON: Chest x-ray 12/27/2017, chest CT 08/18/2016 HISTORY: Pulmonary Fibrosis, severe dyspnea CT DLP: 573.2 mGycm. Automated Exposure Control for Dose Reduction was Utilized. TECHNIQUE: CT scan of the thorax is performed without IV contrast. Limited scanning performed with h igh-resolution algorithm. FINDINGS: Exam somewhat limited by patient body habitus. LUNGS: There is a right pleural effusion and associated atelectasis. Airspace disease is present in t he upper lobes, there are air bronchograms in the right upper lobe and lingula. Tree-in-bud appearanc e present in the right lower lobe. There are some limited thickened interlobular septal lines present . No endobronchial lesion. MEDIASTINUM: Lack of IV contrast is noted to limit evaluation for mediastinal and especially hilar ad enopathy. There are no definitive greater than 1 cm hilar or mediastinal lymph nodes. The heart is en larged. There are coronary artery calcifications present. Pulmonary artery is prominent, correlate fo r possible pulmonary artery hypertension. OTHER: Patient is post cholecystectomy. Low dense focus is present within the right lobe of the liver which is indeterminate measuring 2 cm inferiorly. Additional low dense focus present within the left lobe lateral segment measuring 4 cm. Degenerative disc changes in the visualized spine. IMPRESSION: Cardiomegaly, right pleural effusion and associated atelectasis, correlate for possible p neumonia. Coronary artery disease, correlate for possible pulmonary artery hypertension. Indeterminat e liver lesions. Exam is limited. Follow-up is recommended.
--- NOTE | 2017-12-28 15:59 | P.PN ---
Subjective Progress Note Date: 12/28/17 This a pleasant 87-year-old lady patient of Dr. Wilfrid Burris/ Dr Patterson. 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 She also has neck pain, polyarthritis, no pleurisy, slight cough , no new motor or neurologic deficits except weakness, She tried using her nebulizer treatments which is normally once a week now has used 3 times per day with no relief. She was seen in emergency room with septic-like picture with left shift and mild leukocytosis, without any source of infection. Chest x-ray failed to reveal an acute infiltrate however there is a radiodense ingested material noted on chest x-ray, urinalysis is normal. She comes in with A. fib with RVR, heart rate in the 110s She is evaluated in the emergency room showing an EKG in A. fib with rapid ventricular rate heart rate in the 120s at the time of admission. There is no ST segment elevation or depression. She was last seen by Dr. Dr. Patterson cardiology 4 weeks ago and was transitioned to eliquia from coumadin and she has chronic low back pain low back pain with numbness below the knee suspicious of L5 S1 radiculopathy, also has a headache for several years now mainly left side without any neurologic complaints she has dizziness and blurred vision for over 1 year and she also has insomnia, constipation and increasing weakness no recent falls at home intermittently she requires a cane for ambulation 12/28: Patient still has some cough and conversational dyspnea, shortness of breath long standing, nasal congestion, patient remains to be febrile, family is at bedside, we've started an IV Solu-Medrol secondary to the wheezing noted on examination also IV Lasix, she does have history of asthma, CT high resolution is obtained for pulmonary fibrosis, patient has pulmonary hypertension severe, she is on CPAP machine for which she is now compliant, still with epigastric discomfort, no melena and hematemesis . Consult with Dr. Pérez pulmonary medicine. Michaelle still on hold for an occipital nerve block to be done by Dr. Soliz in the next 24-48 hours . Objective - Vital Signs Vital signs: Vital Signs Temp 97.4 F L 12/28/17 04:00 Pulse 86 12/28/17 04:00 Resp 18 12/28/17 04:00 BP 146/68 12/28/17 04:00 Pulse Ox 98 12/28/17 04:00 Intake & Output 12/27/17 12/28/17 12/28/17 18:59 06:59 18:59 Intake Total 100 20 Balance 100 20 Weight 95 kg Intake: IV 10 0.9 10 Intake, IV Titration 10 Amount Sodium Chloride 0.9% 1, 10 000 ml @ 100 mls/hr IV . Q10H [facility] Rx#:[id number] Oral 100 Other: Voiding Method Toilet Toilet Diaper Diaper - Constitutional General appearance: Present: cooperative, no acute distress - EENT Eyes: Present: anicteric sclerae, EOMI, PERRLA, dentition normal, normal appearance ENT: Present: hard of hearing, NA/AT, normal oropharynx - Neck Neck: Present: normal ROM - Respiratory Respiratory: bilateral: CTA, diminished, wheezing, prolonged inspiration - Cardiovascular Rhythm: regular Heart sounds: normal: S1, S2 - Gastrointestinal General gastrointestinal: Present: normal bowel sounds, soft - Integumentary Integumentary: Present: decreased turgor, normal - Neurologic Neurologic: Present: CNII-XII intact - Musculoskeletal Musculoskeletal: Present: gait normal, strength equal bilaterally - Psychiatric Psychiatric: Present: A&O x's 3. Absent: appropriate affect, intact judgment & insight - Labs CBC & Chem 7: 12/28/17 05:56 12/28/17 05:56 Labs: Abnormal Lab Results - Last 24 Hours (Table) 12/27/17 12/27/17 12/27/17 Range/Units 11:36 16:31 21:22 Chloride (98-107) mmol/L Carbon Dioxide (22-30) mmol/L Creatinine (0.52-1.04) mg/dL Glucose (74-99) mg/dL POC Glucose (mg/dL) 120 H 138 H 154 H (75-99) mg/dL Total Protein (6.3-8.2) g/dL 12/28/17 12/28/17 Range/Units 05:56 06:19 Chloride 97 L (98-107) mmol/L Carbon Dioxide 38 H (22-30) mmol/L Creatinine 0.48 L (0.52-1.04) mg/dL Glucose 141 H (74-99) mg/dL POC Glucose (mg/dL) 122 H (75-99) mg/dL Total Protein 6.1 L (6.3-8.2) g/dL Microbiology - Last 24 Hours (Table) 12/25/17 03:45 Blood Culture - Preliminary Blood No Growth after 72 hours 12/25/17 07:58 Group A Strep Throat Culture - Final Throat Assessment and Plan Plan: 1. Acute exacerbation shortness of breath chronic dyspnea possibly related to of atrial fibrillation with rapid ventricular rate, right pleural effusion systolic and diastolic CHF exacerbation along with severe pulmonary hypertension presenting with increasing dyspnea and exertion , [employer] proBNP 3 mildly elevated, which she currently Cardizem 30 mg 3 times a day eliquis 2.5 mg twice a day patient is not on any beta avery prior to admission. Cardiology is consulted, echocardiogram to be done, IV Lasix when necessary IV Solu-Medrol started along with nebulized albuterol and Atrovent consulted Dr. Pérez for pulmonary hypertension severe and right pleural effusion 2. Leukocytosis, sepsis secondary to pneumonia, calcitonin level normal IV antibiotics, no source in the urine recent dental abscess with dental extraction. Echocardiogram does not significantly show any regurgitation valvular, to signify a Shantelle endocarditis 2. Chronic anticoagulation with eliquis no side effects or complications at this time maintain dosing no changes made, cautioned on the use ibuprofen specially with chronic anticoagulation. On hold for procedure left occipital nerve block would be performed during this admission=dr soliz 3. 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 Polyarthritis, Neuralgia right lower extremity with severe peripheral neuropathy. Underlying spinal stenosis cannot be ruled patient will be started on gabapentin 100 mg 3 times a day which would be titrated to symptom control 5. Underlying history of asthma active airway or COPD this was not clarified she was symptomatic, however these could be related to her CHF problems this needs to be reinvestigated and readdressed she mentions she has an appointment with Dr. Aviles as an outpatient and was scheduled by Dr. Wilfrid Burris. 6Right pleural effusion, Lasix IV given, with maintenance oral Lasix 40 mg thereafter titrate as necessary 7. Chronic pain syndrome for which she is on hydrocodone 8. Carotid artery stenosis with mild plaque no significant hemodynamic stenosis noted September 2015 9. Hyperlipidemia not on any statin prior to admission were based on her previous CVA statins, I recommended this will be discussed with the patient however this is assured that it was discontinued in the past secondary to statin intolerance 10. Headache chronic also related with blurred vision, chronic bilateral history of cataract with IOL secondary cataracts cannot be ruled out, she needs imaging studies if she is not any better with her sleep deprived patient 11. Chronic sleep dysfunction melatonin 10 mg tablet will be started 12. Overactive bladder chronic not on any medications 13. Diabetes mellitus type 2 hemoglobin A1c is requested on metformin which would be restarted i Accu-Cheks with NovoLog scale 14. Radio dense ingested material noted on x-ray, this seems to be around non- distinct nonmetallic type material on the gastric region. Significance is unknown GI prophylaxis and DVT prophylaxis provided she is on chronic anticoagulation for her atrial fibrillation
[2017-12-28 16:52] LABS: Glucose,Whole Blood 165 mg/dL (75-99)
[2017-12-28] MEDS: BUDESONIDE 0.5 MG/2 ML NEBU INHALATION SCH (19:01)
[2017-12-28] MEDS: amLODIPine 5 MG TAB PO SCH (20:16)
[2017-12-28 21:14] LABS: Glucose,Whole Blood 287 mg/dL (75-99)
--- NOTE | 2017-12-28 23:46 | PN ---
PROGRESS NOTE DATE OF SERVICE: 12/28/2017. REASON FOR FOLLOWUP: Possible pneumonia. INTERVAL HISTORY: The patient overall feels better and has improved. He was complaining of some shortness of breath this morning; however, subsequently improved this afternoon and denies significant chest pain. Did have a cough, not bringing up any sputum. No abdominal pain or any diarrhea. EXAMINATION: Blood pressure 144/85 with a pulse of 90, temperature of 98.2. She is 94% on 3L nasal cannula. General description is an elderly female lying in bed in no distress. RESPIRATORY SYSTEM: Unlabored breathing with decreased breath sounds at the bases, no wheeze. HEART: S1, S2. Regular rate and rhythm. ABDOMEN: Soft. No tenderness. LABS: Hemoglobin of 12.8, white count of 8.0. BUN of 13, creatinine 0.48. DIAGNOSTIC IMPRESSION AND PLAN: Patient admitted to the hospital with a fever, some shortness of breath. He did have a CT of the chest suspicious for possible pneumonia, more likely community-acquired. As the patient's fever responded to the Rocephin and azithromycin, that will be continued. Will try to obtain a sputum to narrow down her antibiotics. Continue with supportive care. Family present at the bedside. Their questions were answered. MMODL / IJN: [id number] /
[2017-12-29] MEDS: SODIUM CHLORIDE 0.9% 1,000 ML IV SCH (02:46)
[2017-12-29] MEDS: methylPREDNISolone SOD SUCCI 125 MG/2 ML VIAL IV SCH ×2 (05:21→12:51)
[2017-12-29] MEDS: cefTRIAXone IN SWFI 2,000 MG/20 ML SYRINGE IVP SCH (05:22)
[2017-12-29 06:18] LABS: Basophils % (A) 0 %; Eosinophils % (A) 0 %; HCT 38.8 % (34.0-46.0); HGB 12.7 gm/dL (11.4-16.0); Lymphocytes # (A) 0.9 k/uL (1.0-4.8); Lymphocytes % (A) 12 %; MCH 28.8 pg (25.0-35.0); MCHC 32.8 g/dL (31.0-37.0); Mean Platelet Volume 6.8; Monocytes # (A) 0.2 k/uL (0-1.0); Monocytes % (A) 2 %; Neutrophils % (A) 85 %; Platelet Count 280 k/uL (150-450); RBC 4.42 m/uL (3.80-5.40); RDW 13.9 % (11.5-15.5)
[2017-12-29] MEDS: PANTOPRAZOLE 40 MG TABLET PO SCH (06:20)
[2017-12-29 06:37] LABS: Glucose,Whole Blood 186 mg/dL (75-99)
[2017-12-29] MEDS: INSULIN ASPART 100 UNIT/ML 1 ML 10 ML VIAL SQ SCH ×4 (06:39→22:52)
[2017-12-29 06:40] LABS: ALT 39 U/L (9-52); AST 18 U/L (14-36); Albumin 3.7 g/dL (3.5-5.0); Alkaline Phosphatase 65 U/L (38-126); Blood Urea Nitrogen 14 mg/dL (7-17); Calcium 8.9 mg/dL (8.4-10.2); Chloride 92 mmol/L (98-107); Glucose 207 mg/dL (74-99); Potassium 3.5 mmol/L (3.5-5.1); Sodium 143 mmol/L (137-145); Total Bilirubin 0.6 mg/dL (0.2-1.3); Total Protein 6.5 g/dL (6.3-8.2)
[2017-12-29 06:48] LABS: Anion Gap 10 mmol/L
[2017-12-29 06:50] LABS: Carbon Dioxide 41 mmol/L (22-30)
[2017-12-29] MEDS: BUDESONIDE 0.5 MG/2 ML NEBU INHALATION SCH (07:54)
[2017-12-29] MEDS: IPRATROPIUM-ALBUTEROL 3 ML NEB INHALATION SCH ×4 (07:54→20:35)
[2017-12-29] MEDS ORDERED: FUROSEMIDE 40 MG TAB PO SCH (09:00)
[2017-12-29] MEDS: FLUTICASONE 50MCG/SPRAY NASAL 16GM EA NOSTRIL SCH ×2 (09:15→19:59)
[2017-12-29] MEDS: MELOXICAM 7.5 MG TAB PO SCH (09:16)
[2017-12-29] MEDS: AZITHROMYCIN 500 MG TAB PO SCH (09:16)
[2017-12-29] MEDS: GABAPENTIN 100 MG CAP PO SCH ×2 (09:16→20:00)
[2017-12-29] MEDS: LIDOCAINE 5% PATCH TOPICAL SCH (09:17)
[2017-12-29] MEDS: BACLOFEN 10 MG TAB PO SCH ×3 (09:18→22:52)
[2017-12-29] MEDS: DILTIAZEM ORAL 30 MG TAB PO SCH ×3 (09:18→22:52)
[2017-12-29] MEDS: METOPROLOL SUCCINATE (ER) 50 MG TAB.ER.24H PO SCH (09:18)
[2017-12-29] MEDS: SERTRALINE 25 MG TAB PO SCH (09:19)
[2017-12-29] MEDS: LOSARTAN-HCTZ 50-12.5 MG 1 EACH TAB PO SCH (09:19)
[2017-12-29] MEDS ORDERED: APIXABAN 5 MG TAB PO SCH (10:00)
[2017-12-29] MEDS: ACETAMINOPHEN TAB 325 MG TAB PO PRN (10:43)
[2017-12-29] MEDS: FUROSEMIDE 10 MG/ML 4 ML VIAL IV SCH (10:44)
[2017-12-29] MEDS: CHLORHEXIDINE GLUCONATE 15 ML CUP MUCOUS MEM SCH ×2 (10:45→19:59)
--- NOTE | 2017-12-29 11:39 | P.PN ---
Subjective Progress Note Date: 12/29/17 THis is a pleasant 87-year-old female with chronic multiple and complex medical problems including hypertension, chronic atrial fibrillation, on ELiquis, diabetes. She presented to the hospital with complaints of shortness of breath and left-sided headache and facial pain. On initial presentation, she had mild fever and elevated lactic acid level. FOcus of infection is undetermined at this time. EKG showed atrial fibrillation with RVR with nonspecific ST-T waves abnormalities. Heart rate is currently better controlled but patient continues to complain of shortness of breath. She did sleep well through the night last night, using her CPAP. She has known LV systolic function of 45%. BNP is not elevated at 997. SHe has history of cath showing normal coronaries and subsequent negative stress testing. Blood pressure this morning 138/76 with a heart rate in the 90 range, 98% on 5 L of oxygen. White blood cell count 7.0, hemoglobin 12.7, platelet count 280. Sodium 143, potassium 3.5, BUN 14, creatinine 0.5. The repeat BNP level was performed which came back to be 0. She did have a CAT scan of the chest performed which revealed cardiomegaly, right pleural effusion and associated atelectasis, correlate for possible pneumonia. Indeterminant liver lesions. Patient is currently on Lasix 40 mg IV daily. Objective - Vital Signs Vital signs: Vital Signs Temp 98.5 F 12/29/17 03:23 Pulse 96 12/29/17 08:11 Resp 18 12/29/17 03:23 BP 138/77 12/29/17 03:23 Pulse Ox 98 12/29/17 10:08 Intake & Output 12/28/17 12/29/17 12/29/17 18:59 06:59 18:59 Intake Total 740 200 Output Total 600 Balance 140 200 Weight 89.5 kg Intake: Oral 740 200 Output: Urine 600 Other: Voiding Method Toilet Diaper # Voids 2 - Exam PHYSICAL EXAMINATION: GENERAL: 87-year-old female in no acute distress at the time of my examination HEENT: Head is atraumatic, normocephalic. Pupils equal, round. Sclera anicteric. Conjunctiva are clear. Mucous membranes of the mouth are moist. Neck is supple. There is no elevated jugular venous pressure.] bruit is heard. HEART EXAMINATION: Heart S1, S2 normal. No murmur or gallop heard. CHEST EXAMINATION: Lungs reveal diminished air entry bilaterally with some expiratory wheezing noted. ABDOMEN: Soft, nontender. Bowel sounds are heard. No organomegaly noted. EXTREMITIES: 2+ peripheral pulses with no evidence of peripheral edema and no calf tenderness noted. NEUROLOGIC patient is awake, alert and oriented ?-3. . - Labs CBC & Chem 7: 12/29/17 05:32 12/29/17 05:32 Labs: Abnormal Lab Results - Last 24 Hours (Table) 12/28/17 12/28/17 12/28/17 Range/Units 11:58 16:34 21:09 Lymphocytes # (1.0-4.8) k/uL Chloride (98-107) mmol/L Carbon Dioxide (22-30) mmol/L Glucose (74-99) mg/dL POC Glucose (mg/dL) 181 H 165 H 287 H (75-99) mg/dL 12/29/17 12/29/17 12/29/17 Range/Units 05:32 05:32 06:32 Lymphocytes # 0.9 L (1.0-4.8) k/uL Chloride 92 L (98-107) mmol/L Carbon Dioxide 41 H* (22-30) mmol/L Glucose 207 H (74-99) mg/dL POC Glucose (mg/dL) 186 H (75-99) mg/dL Microbiology - Last 24 Hours (Table) 12/25/17 03:45 Blood Culture - Preliminary Blood No Growth after 96 hours Assessment and Plan Plan: Assessment #1 shortness of breath which is likely related to multiple reasons including a component of heart failure, diastolic acute on chronic, as well as component of severe pulmonary hypertension as well as morbid obesity #2 mild nonischemic cardiomyopathy #3 chronic atrial fibrillation was controlled heart rate #4 morbid obesity #5 obstructive sleep apnea Plan From cardiology's perspective, we'll continue the patient on 40 mg of IV Lasix daily. Continue metoprolol 50 mg daily. Check lytes BUN and creatinine, intake and output and daily weights in the morning. DNP note has been reviewed, I agree with a documented findings and plan of care. Patient was seen and examined.
[2017-12-29 11:46] LABS: Glucose,Whole Blood 217 mg/dL (75-99)
--- NOTE | 2017-12-29 14:19 | P.PN ---
Subjective Progress Note Date: 12/29/17 This a pleasant 87-year-old lady patient of Dr. Wilfrid Burrsi/ Dr Patterson. 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 She also has neck pain, polyarthritis, no pleurisy, slight cough , no new motor or neurologic deficits except weakness, She tried using her nebulizer treatments which is normally once a week now has used 3 times per day with no relief. She was seen in emergency room with septic-like picture with left shift and mild leukocytosis, without any source of infection. Chest x-ray failed to reveal an acute infiltrate however there is a radiodense ingested material noted on chest x-ray, urinalysis is normal. She comes in with A. fib with RVR, heart rate in the 110s She is evaluated in the emergency room showing an EKG in A. fib with rapid ventricular rate heart rate in the 120s at the time of admission. There is no ST segment elevation or depression. She was last seen by Dr. Dr. Patterson cardiology 4 weeks ago and was transitioned to eliquia from coumadin and she has chronic low back pain low back pain with numbness below the knee suspicious of L5 S1 radiculopathy, also has a headache for several years now mainly left side without any neurologic complaints she has dizziness and blurred vision for over 1 year and she also has insomnia, constipation and increasing weakness no recent falls at home intermittently she requires a cane for ambulation 12/28: Patient still has some cough and conversational dyspnea, shortness of breath long standing, nasal congestion, patient remains to be febrile, family is at bedside, we've started an IV Solu-Medrol secondary to the wheezing noted on examination also IV Lasix, she does have history of asthma, CT high resolution is obtained for pulmonary fibrosis, patient has pulmonary hypertension severe, she is on CPAP machine for which she is now compliant, still with epigastric discomfort, no melena and hematemesis . Consult with Dr. Pérez pulmonary medicine. Michaelle still on hold for an occipital nerve block to be done by Dr. Soliz in the next 24-48 hours . 12/29: Patient has been seen by Dr. Conde with recommendations to continue Rocephin and azithromycin. Patient is followed by cardiology. Continue IV Lasix at 40 mg daily and metoprolol 50 mg daily. Patient continues to have headache and this to be scheduled for occipital nerve block with Dr. Matson. Estherqunoe remains on hold for this. Daughter also brings up the patient had a recent right upper tooth infection which seems to be cleared at this time. Chlorhexidine was added. Consult with Dr. Pérez has been added. Patient was started on BiPAP for continued shortness of breath. Objective - Vital Signs Vital signs: Vital Signs Temp 98.5 F 12/29/17 03:23 Pulse 96 12/29/17 08:11 Resp 18 12/29/17 03:23 BP 138/77 12/29/17 03:23 Pulse Ox 95 12/29/17 03:23 Intake & Output 12/28/17 12/29/17 12/29/17 18:59 06:59 18:59 Intake Total 740 Output Total 600 Balance 140 Weight 89.5 kg Intake: Oral 740 Output: Urine 600 Other: Voiding Method Toilet Diaper # Voids 2 - Exam General appearance: Present: cooperative, no acute distress - EENT Eyes: Present: anicteric sclerae, EOMI, PERRLA, dentition normal, normal appearance ENT: Present: hard of hearing, NA/AT, normal oropharynx - Neck Neck: Present: normal ROM - Respiratory Respiratory: bilateral: CTA, diminished, wheezing, prolonged inspiration - Cardiovascular Rhythm: regular Heart sounds: normal: S1, S2 - Gastrointestinal General gastrointestinal: Present: normal bowel sounds, soft - Integumentary Integumentary: Present: decreased turgor, normal - Neurologic Neurologic: Present: CNII-XII intact - Musculoskeletal Musculoskeletal: Present: gait normal, strength equal bilaterally - Psychiatric Psychiatric: Present: A&O x's 3. Absent: appropriate affect, intact judgment & insight - Labs CBC & Chem 7: 12/29/17 05:32 12/29/17 05:32 Labs: Abnormal Lab Results - Last 24 Hours (Table) 12/28/17 12/28/17 12/28/17 Range/Units 11:58 16:34 21:09 Lymphocytes # (1.0-4.8) k/uL Chloride (98-107) mmol/L Carbon Dioxide (22-30) mmol/L Glucose (74-99) mg/dL POC Glucose (mg/dL) 181 H 165 H 287 H (75-99) mg/dL 12/29/17 12/29/17 12/29/17 Range/Units 05:32 05:32 06:32 Lymphocytes # 0.9 L (1.0-4.8) k/uL Chloride 92 L (98-107) mmol/L Carbon Dioxide 41 H* (22-30) mmol/L Glucose 207 H (74-99) mg/dL POC Glucose (mg/dL) 186 H (75-99) mg/dL Microbiology - Last 24 Hours (Table) 12/25/17 03:45 Blood Culture - Preliminary Blood No Growth after 96 hours Assessment and Plan Plan: 1. Acute exacerbation shortness of breath chronic dyspnea possibly related to of atrial fibrillation with rapid ventricular rate, right pleural effusion, right-sided pneumonia, acute diastolic heart failure with severe pulmonary hypertension. Patient has been placed on BiPAP. Consult with cardiology and pulmonary medicine is appreciated. Continue DuoNeb treatments 4 times daily, azathioprine my sentence ceftriaxone, Cardizem 30 mg 3 times daily, Lasix currently at 40 mg IV, Solu-Medrol 60 mg every [address] Conde is appreciated. 2. Leukocytosis, sepsis secondary to pneumonia, calcitonin level normal IV antibiotics, no source in the urine recent dental abscess with dental extraction appears to be cleared. .3. Chronic anticoagulation with eliquis no side effects or complications at this time maintain dosing no changes made, cautioned on the use ibuprofen specially with chronic anticoagulation. On hold for procedure left occipital nerve block would be performed during this admission=dr soliz 3. 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 Polyarthritis, Neuralgia right lower extremity with severe peripheral neuropathy. Underlying spinal stenosis cannot be ruled patient will be started on gabapentin 100 mg 3 times a day which would be titrated to symptom control 5. Underlying history of asthma active airway or COPD this was not clarified she was symptomatic, however these could be related to her CHF problems this needs to be reinvestigated and readdressed she mentions she has an appointment with Dr. Aviles as an outpatient and was scheduled by Dr. Wilfrid Burris. 6. Right pleural effusion, Lasix IV given, with maintenance oral Lasix 40 mg thereafter titrate as necessary 7. Chronic pain syndrome for which she is on hydrocodone 8. Carotid artery stenosis with mild plaque no significant hemodynamic stenosis noted September 2015 9. Hyperlipidemia not on any statin prior to admission were based on her previous CVA statins, I recommended this will be discussed with the patient however this is assured that it was discontinued in the past secondary to statin intolerance 10. Headache chronic with plan for occipital nerve block with Dr. Chase Jones. Eliquis is on hold until this is completed. No chance 11. Chronic sleep dysfunction melatonin 10 mg tablet will be started 12. Overactive bladder chronic not on any medications 13. Diabetes mellitus type 2 with hemoglobin A1c of 6.5. Continue with NovoLog scale. Glucometer ordered 14. Radio dense ingested material noted on x-ray, this seems to be around non- distinct nonmetallic type material on the gastric region. Significance is unknown GI prophylaxis and DVT prophylaxis provided she is on chronic anticoagulation for her atrial fibrillation Discharge plan: Home with [facility] Impression and plan of care have been directed as dictated by the signing physician. Nikki Lauren nurse practitioner acting as scribe for signing physician.
--- NOTE | 2017-12-29 14:20 | P.CNPUL ---
History of Present Illness Consult date: 12/29/17 Reason for consult: dyspnea, cough, COPD, hypoxemia, pneumonia, abnormal CXR/CT , other Chief complaint: Shortness of breath History of present illness: Pulmonary consult dated 12/29/2017 This is a patient who was admitted to the hospital on December 25. She came in initially with neck and shoulder pain. She was subsequently complaining of shortness of breath difficulty breathing coughing and was thought to have a combination of both heart failure and pneumonia. She does have a history of chronic atrial fibrillation. We will just consulted today for shortness of breath. Chest x-ray shows a patchy infiltrate in the left lower lobe and computed tomography scan showed some abnormalities in the left lower lobe and lingula as well as in the right midlung. Her complaints include primarily shortness of breath. She also had what appeared to be some lower extremity edema and also in addition had some difficulty laying flat in bed. Her shortness of breath with both at rest and on exertion but certainly much more significant on exertion. She really lacks a lot of symptoms consistent with pneumonia. She really wasn't producing any phlegm. She had no fever or chills likewise had no chest congestion. She does have a history of chronic atrial fibrillation CHF GERD hyperlipidemia hypertension DJD sleep apnea syndrome, currently on BiPAP therapy and a host of other medical problems. In addition, she smoked for about 20 years. She quit many years back. There may be some COPD but it appears to be mild at best. Review of Systems A 12 point review of system is positive for shortness breath chest congestion and minimal cough. Past Medical History Past Medical History: Atrial Fibrillation, Heart Failure, GERD/Reflux, Hyperlipidemia, Hypertension, Osteoarthritis (OA), Respiratory Disorder, Sleep Apnea/CPAP/BIPAP, Thyroid Disorder Additional Past Medical History / Comment(s): DDD WITH BACK PAIN, OCCASIONAL SWELLING IN FEET-DENIES ANY NOW., USES C-PAP MACHINE. , FEELS LIKE SHE HAS A LUMP IN HER THROAT. History of Any Multi-Drug Resistant Organisms: None Reported Past Surgical History: Cholecystectomy, Hysterectomy, Joint Replacement Additional Past Surgical History / Comment(s): EGD for gastric reflux. Excision of lipomas. bilateral cataracts, total knee. Past Anesthesia/Blood Transfusion Reactions: No Reported Reaction Past Psychological History: Anxiety, Depression Smoking Status: Former smoker Past Alcohol Use History: None Reported Past Drug Use History: None Reported - Past Family History Brother(s) Family Medical History: Congestive Heart Failure (CHF), COPD, Coronary Artery Disease (CAD), Diabetes Mellitus Daughter(s) Additional Family Medical History / Comment(s): One from MVA Son(s) Family Medical History: Diabetes Mellitus, Hyperlipidemia, Hypertension Sister(s) Family Medical History: Cancer Mother Family Medical History: Dementia Father Family Medical History: COPD Additional Family Medical History / Comment(s): . Medications and Allergies Home Medications Medication Instructions Recorded Confirmed Type Omeprazole [PriLOSEC] 20 mg PO BID 06/02/15 12/25/17 History Sertraline [Zoloft] 25 mg PO DAILY 10/18/15 12/25/17 History Apixaban [Eliquis] 2.5 mg PO BID 02/14/16 12/25/17 History metFORMIN HCL [Glucophage] 850 mg PO AC-SUPPER #30 tab 02/17/16 12/25/17 Rx Diltiazem Oral [Cardizem Oral] 30 mg PO TID 09/02/16 12/25/17 History Losartan/Hydrochlorothiazide 1 tab PO DAILY 09/02/16 12/25/17 History [Hyzaar 100-25 Tablet] Fluticasone Nasal [place] [Flonase 1 spray EA NOSTRIL DAILY 03/30/17 12/25/17 History Nasal [place]] Amoxicillin See Taper PO DAILY 12/25/17 12/25/17 History HYDROcodone/APAP 7.5-325MG [[place]amy 1 tab PO TID PRN 12/25/17 12/25/17 History 7.5-325] Ibuprofen [Advil] 400 mg PO DAILY PRN 12/25/17 12/25/17 History Allergies Allergy/AdvReac Type Severity Reaction Status Date / Time aspirin AdvReac SEE Verified 12/25/17 12:52 COMMENTS Physical Exam Osteopathic Statement: *. No significant issues noted on an osteopathic structural exam other than those noted in the History and Physical/Consult. Vitals: Vital Signs Temp Pulse Pulse Resp BP Pulse Ox 12/29/17 11:54 99 12/29/17 11:44 98 12/29/17 10:08 98 12/29/17 08:11 96 12/29/17 07:54 92 12/29/17 03:23 98.5 F 66 18 138/77 95 12/29/17 03:21 77 18 12/28/17 23:49 98 F 77 18 145/75 96 12/28/17 20:00 98.2 F 90 18 144/85 94 L 12/28/17 19:14 89 12/28/17 19:01 87 12/28/17 16:40 97.3 F L 78 18 157/95 97 12/28/17 16:37 84 12/28/17 16:26 88 Intake and Output 12/28/17 12/29/17 12/29/17 22:59 06:59 14:59 Intake Total 180 200 Balance 180 200 Intake: Oral 180 200 Other: Voiding Method Toilet Toilet Diaper Diaper # Voids 2 Weight 89.5 kg No acute distress, oriented 3. Nasal O2 in place. HEENT examination is grossly unremarkable. Mucous membranes are moist. No oral lesions. Neck supple. Full range of motion. No adenopathy thyromegaly or neck vein distention. Cardiovascular examination irregular rhythm and rate. She appears to be in atrial fibrillation. S1-S2 normal. No distinct murmurs noted. Heart sounds are distant. Lungs reveal scattered expiratory rhonchi. A few scattered crackles are noted. Breath sounds equal bilaterally. No wheezes are appreciated. Abdomen soft bowel sounds are heard. No masses or tenderness. Extremities are intact. Mild edema is noted. No cyanosis or clubbing. Skin is without rash or lesion. Neurologic examination is brief but nonfocal. Results - Laboratory Findings CBC and BMP: 12/29/17 05:32 12/29/17 05:32 PT/INR, D-dimer PT 10.4 sec (9.0-12.0) 12/25/17 03:45 INR 1.1 (<1.2) 12/25/17 03:45 Abnormal lab findings: Abnormal Labs 12/25/17 12/25/17 12/25/17 03:45 03:45 03:45 WBC 12.6 H Neutrophils # 10.4 H Lymphocytes # Chloride Carbon Dioxide Creatinine Glucose 208 H POC Glucose (mg/dL) Hemoglobin A1c Plasma Lactic Acid Osorio 2.3 H* Uric Acid Calcium Total Protein Albumin Urine Protein Urine Glucose (UA) Urine Blood Urine Bacteria Urine Mucus 12/25/17 12/25/17 12/25/17 03:45 03:45 16:57 WBC Neutrophils # Lymphocytes # Chloride Carbon Dioxide Creatinine Glucose POC Glucose (mg/dL) 135 H Hemoglobin A1c 6.5 H Plasma Lactic Acid Osorio Uric Acid Calcium Total Protein Albumin Urine Protein Trace H Urine Glucose (UA) Trace H Urine Blood Trace H Urine Bacteria Rare H Urine Mucus Rare H 12/25/17 12/26/17 12/26/17 20:52 05:15 06:22 WBC Neutrophils # Lymphocytes # Chloride Carbon Dioxide Creatinine Glucose POC Glucose (mg/dL) 161 H 139 H Hemoglobin A1c Plasma Lactic Acid Osorio Uric Acid 3.1 L Calcium Total Protein Albumin Urine Protein Urine Glucose (UA) Urine Blood Urine Bacteria Urine Mucus 12/26/17 12/26/17 12/26/17 11:50 16:41 20:42 WBC Neutrophils # Lymphocytes # Chloride Carbon Dioxide Creatinine Glucose POC Glucose (mg/dL) 141 H 214 H 127 H Hemoglobin A1c Plasma Lactic Acid Osorio Uric Acid Calcium Total Protein Albumin Urine Protein Urine Glucose (UA) Urine Blood Urine Bacteria Urine Mucus 12/27/17 12/27/17 12/27/17 05:35 05:35 06:00 WBC 11.7 H Neutrophils # 8.4 H Lymphocytes # Chloride Carbon Dioxide 32 H Creatinine 0.49 L Glucose 130 H POC Glucose (mg/dL) 120 H Hemoglobin A1c Plasma Lactic Acid Osorio Uric Acid Calcium 8.1 L Total Protein 6.2 L Albumin 3.4 L Urine Protein Urine Glucose (UA) Urine Blood Urine Bacteria Urine Mucus 12/27/17 12/27/17 12/27/17 11:36 16:31 21:22 WBC Neutrophils # Lymphocytes # Chloride Carbon Dioxide Creatinine Glucose POC Glucose (mg/dL) 120 H 138 H 154 H Hemoglobin A1c Plasma Lactic Acid Osorio Uric Acid Calcium Total Protein Albumin Urine Protein Urine Glucose (UA) Urine Blood Urine Bacteria Urine Mucus 12/28/17 12/28/17 12/28/17 05:56 06:19 11:58 WBC Neutrophils # Lymphocytes # Chloride 97 L Carbon Dioxide 38 H Creatinine 0.48 L Glucose 141 H POC Glucose (mg/dL) 122 H 181 H Hemoglobin A1c Plasma Lactic Acid Osorio Uric Acid Calcium Total Protein 6.1 L Albumin Urine Protein Urine Glucose (UA) Urine Blood Urine Bacteria Urine Mucus 12/28/17 12/28/17 12/29/17 16:34 21:09 05:32 WBC Neutrophils # Lymphocytes # Chloride 92 L Carbon Dioxide 41 H* Creatinine Glucose 207 H POC Glucose (mg/dL) 165 H 287 H Hemoglobin A1c Plasma Lactic Acid Osorio Uric Acid Calcium Total Protein Albumin Urine Protein Urine Glucose (UA) Urine Blood Urine Bacteria Urine Mucus 12/29/17 12/29/17 12/29/17 05:32 06:32 11:41 WBC Neutrophils # Lymphocytes # 0.9 L Chloride Carbon Dioxide Creatinine Glucose POC Glucose (mg/dL) 186 H 217 H Hemoglobin A1c Plasma Lactic Acid Osorio Uric Acid Calcium Total Protein Albumin Urine Protein Urine Glucose (UA) Urine Blood Urine Bacteria Urine Mucus - Diagnostic Findings Chest x-ray: report reviewed, image reviewed CT scan - chest: report reviewed (Chest x-ray labs and medications are reviewed. ), image reviewed Assessment and Plan Assessment: Assessment Shortness of breath, likely multifactorial in part related to underlying heart failure as well as possible pneumonia. History of chronic atrial fibrillation Possible but unlikely COPD Obesity CHF by history Gastroesophageal reflux disease Hyperlipidemia Hypertension DJD Sleep apnea syndrome, currently maintained on BiPAP therapy Plan: Plan dated 12/29/2017 The patient's medications labs and x-rays all reviewed. Additional recommendations and suggestions are forthcoming. Medications are reviewed as well. It appears that her shortness of breath is likely as a result of heart failure as well as possible pneumonia. I favor the former rather than the latter given her history. She may also have some underlying COPD which may be contributing to her problems although she only smoked for about 20 or 25 years. Time with Patient: Greater than 30
--- NOTE | 2017-12-29 15:47 | PN ---
PROGRESS NOTE DATE OF SERVICE: 12/29/2017 REASON FOR FOLLOWUP: Pneumonia. INTERVAL HISTORY: The patient's overall fever pattern has improved. The patient denies having any chest pain. Some shortness of breath. Cough is minimal. No nausea, no vomiting, no abdominal pain or any diarrhea. PHYSICAL EXAMINATION: Blood pressure is 138/77 with a pulse of 66, temperature 98.5. She is 95% on 3 L nasal cannula. General description is an elderly female up in the bed in no distress. RESPIRATORY SYSTEM: Unlabored breathing with decreased breath sounds at the bases. No wheeze. HEART: S1, S2. Regular rate and rhythm. ABDOMEN: Soft. No tenderness. LABS: Hemoglobin is 12.3, white count 7.0 with a BUN of 14, creatinine 0.52. DIAGNOSTIC IMPRESSION AND PLAN: Patient admitted to hospital with a fever. Source is likely pneumonia, community- acquired. Patient did have overall improvement with the Zosyn and Zithromax with a plan to finish therapy with oral Ceftin. Continue with supportive care. MMODL / IJN: [id number] /
[2017-12-29 16:57] LABS: Glucose,Whole Blood 260 mg/dL (75-99)
[2017-12-29] MEDS: amLODIPine 5 MG TAB PO SCH (20:00)
[2017-12-29 21:07] LABS: Glucose,Whole Blood 283 mg/dL (75-99)
[2017-12-30 05:54] LABS: Basophils % (A) 0 %; Eosinophils # (A) 0.2 k/uL (0-0.7); Eosinophils % (A) 2 %; HGB 13.2 gm/dL (11.4-16.0); Lymphocytes % (A) 9 %; MCH 29.2 pg (25.0-35.0); MCV 88.4 fL (80.0-100.0); Mean Platelet Volume 7.2; Monocytes # (A) 0.5 k/uL (0-1.0); Monocytes % (A) 4 %; Neutrophils # (A) 9.3 k/uL (1.3-7.7); Neutrophils % (A) 84 %; Platelet Count 232 k/uL (150-450); RBC 4.52 m/uL (3.80-5.40); WBC 11.1 k/uL (3.8-10.6)
[2017-12-30 06:00] LABS: Glucose,Whole Blood 204 mg/dL (75-99)
[2017-12-30] MEDS: cefTRIAXone IN SWFI 2,000 MG/20 ML SYRINGE IVP SCH (06:04)
[2017-12-30 06:06] LABS: ALT 33 U/L (9-52); AST 26 U/L (14-36); Albumin 3.6 g/dL (3.5-5.0); Alkaline Phosphatase 58 U/L (38-126); Anion Gap 10 mmol/L; Blood Urea Nitrogen 23 mg/dL (7-17); Calcium 8.8 mg/dL (8.4-10.2); Chloride 90 mmol/L (98-107); Glucose 218 mg/dL (74-99); Potassium 3.5 mmol/L (3.5-5.1); Sodium 140 mmol/L (137-145); Total Bilirubin 0.6 mg/dL (0.2-1.3); Total Protein 6.3 g/dL (6.3-8.2)
[2017-12-30 06:14] LABS: Carbon Dioxide 40 mmol/L (22-30)
[2017-12-30] MEDS: PANTOPRAZOLE 40 MG TABLET PO SCH (06:42)
[2017-12-30] MEDS: INSULIN ASPART 100 UNIT/ML 1 ML 10 ML VIAL SQ SCH ×4 (06:43→23:38)
[2017-12-30] MEDS: IPRATROPIUM-ALBUTEROL 3 ML NEB INHALATION SCH ×4 (08:20→19:52)
[2017-12-30] MEDS: AZITHROMYCIN 500 MG TAB PO SCH (09:43)
[2017-12-30] MEDS: CHLORHEXIDINE GLUCONATE 15 ML CUP MUCOUS MEM SCH ×2 (09:43→23:30)
[2017-12-30] MEDS: BACLOFEN 10 MG TAB PO SCH ×3 (09:43→23:30)
[2017-12-30] MEDS: FUROSEMIDE 10 MG/ML 4 ML VIAL IV SCH (09:44)
[2017-12-30] MEDS: FLUTICASONE 50MCG/SPRAY NASAL 16GM EA NOSTRIL SCH ×2 (09:44→23:29)
[2017-12-30] MEDS: DILTIAZEM ORAL 30 MG TAB PO SCH ×3 (09:44→23:30)
[2017-12-30] MEDS: LOSARTAN-HCTZ 50-12.5 MG 1 EACH TAB PO SCH (09:45)
[2017-12-30] MEDS: LIDOCAINE 5% PATCH TOPICAL SCH (09:45)
[2017-12-30] MEDS: GABAPENTIN 100 MG CAP PO SCH ×2 (09:45→23:29)
[2017-12-30] MEDS: SERTRALINE 25 MG TAB PO SCH (09:46)
[2017-12-30] MEDS: METOPROLOL SUCCINATE (ER) 50 MG TAB.ER.24H PO SCH (09:46)
[2017-12-30] MEDS: ACETAMINOPHEN TAB 325 MG TAB PO PRN (09:50)
[2017-12-30] MEDS: APIXABAN 2.5 MG TABLET PO SCH ×2 (10:00→23:30)
[2017-12-30] MEDS: DICLOFENAC SODIUM GEL 100 GM TUBE TOPICAL SCH ×5 (10:00→23:33)
[2017-12-30 11:14] VITALS: BMI 43.6
--- NOTE | 2017-12-30 11:20 | P.PN ---
Subjective Progress Note Date: 12/30/17 THis is a pleasant 87-year-old female with chronic multiple and complex medical problems including hypertension, chronic atrial fibrillation, on ELiquis, diabetes. She presented to the hospital with complaints of shortness of breath and left-sided headache and facial pain. On initial presentation, she had mild fever and elevated lactic acid level. FOcus of infection is undetermined at this time. EKG showed atrial fibrillation with RVR with nonspecific ST-T waves abnormalities. Heart rate is currently better controlled but patient continues to complain of shortness of breath. She did sleep well through the night last night, using her CPAP. She has known LV systolic function of 45%. BNP is not elevated at 997. SHe has history of cath showing normal coronaries and subsequent negative stress testing. Blood pressure this morning 138/76 with a heart rate in the 90 range, 98% on 5 L of oxygen. White blood cell count 7.0, hemoglobin 12.7, platelet count 280. Sodium 143, potassium 3.5, BUN 14, creatinine 0.5. The repeat BNP level was performed which came back to be 2089. She did have a CAT scan of the chest performed which revealed cardiomegaly, right pleural effusion and associated atelectasis, correlate for possible pneumonia. Indeterminant liver lesions. Patient is currently on Lasix 40 mg IV daily. 12/30/2017 Patient was seen and examined this morning, overall her breathing is improving. She has not yet been out of the bed, physical therapy consultation has been requested for today. She continues to be on 40 mg of IV Lasix daily as well as antibiotics for pneumonia. Blood pressure 144/70 with a heart rate in the 80s, 96% on 3 L of oxygen. White blood cell count 11.1, hemoglobin 13.2, platelet count 232. Sodium 140, potassium 3.5, BUN 23, creatinine 0.5. Objective - Vital Signs Vital signs: Vital Signs Temp 98.0 F 12/29/17 16:55 Pulse 81 12/30/17 08:35 Resp 20 12/30/17 04:00 BP 145/70 12/30/17 04:00 Pulse Ox 96 12/30/17 04:00 Intake & Output 12/29/17 12/30/17 12/30/17 18:59 06:59 18:59 Intake Total 1460 1000 118 Output Total 600 Balance 1460 400 118 Weight 91.5 kg 91.5 kg Intake: Intake, IV Titration 1000 Amount Sodium Chloride 0.9% 1, 1000 000 ml @ 100 mls/hr IV . Q10H [facility] Rx#:[id number] Oral 1460 118 Output: Urine 600 Other: Voiding Method Toilet Diaper # Voids 2 # Bowel Movements 1 - Exam PHYSICAL EXAMINATION: GENERAL: 87-year-old female in no acute distress at the time of my examination HEENT: Head is atraumatic, normocephalic. Pupils equal, round. Sclera anicteric. Conjunctiva are clear. Mucous membranes of the mouth are moist. Neck is supple. There is no elevated jugular venous pressure.] bruit is heard. HEART EXAMINATION: Heart S1, S2 normal. No murmur or gallop heard. CHEST EXAMINATION: Lungs reveal improvement in air entry bilaterally with some expiratory wheezing noted. ABDOMEN: Soft, nontender. Bowel sounds are heard. No organomegaly noted. EXTREMITIES: 2+ peripheral pulses with no evidence of peripheral edema and no calf tenderness noted. NEUROLOGIC patient is awake, alert and oriented ?-3. . - Labs CBC & Chem 7: 12/30/17 05:39 12/30/17 05:39 Labs: Abnormal Lab Results - Last 24 Hours (Table) 12/29/17 12/29/17 12/29/17 Range/Units 11:41 16:54 21:05 WBC (3.8-10.6) k/uL Neutrophils # (1.3-7.7) k/uL Chloride (98-107) mmol/L Carbon Dioxide (22-30) mmol/L BUN (7-17) mg/dL Creatinine (0.52-1.04) mg/dL Glucose (74-99) mg/dL POC Glucose (mg/dL) 217 H 260 H 283 H (75-99) mg/dL 12/30/17 12/30/17 12/30/17 Range/Units 05:39 05:39 05:58 WBC 11.1 H (3.8-10.6) k/uL Neutrophils # 9.3 H (1.3-7.7) k/uL Chloride 90 L (98-107) mmol/L Carbon Dioxide 40 H* (22-30) mmol/L BUN 23 H (7-17) mg/dL Creatinine 0.50 L (0.52-1.04) mg/dL Glucose 218 H (74-99) mg/dL POC Glucose (mg/dL) 204 H (75-99) mg/dL Microbiology - Last 24 Hours (Table) 12/25/17 03:45 Blood Culture - Preliminary Blood No Growth after 120 hours Assessment and Plan Plan: Assessment #1 shortness of breath which is likely related to multiple reasons including a component of heart failure, diastolic acute on chronic, as well as component of severe pulmonary hypertension and pneumonia #2 mild nonischemic cardiomyopathy #3 chronic atrial fibrillation was controlled heart rate #4 morbid obesity #5 obstructive sleep apnea Plan From cardiology's perspective, we'll continue the patient on 40 mg of IV Lasix daily. Continue metoprolol 50 mg daily. Check lytes BUN and creatinine, intake and output and daily weights in the morning. DNP note has been reviewed, I agree with a documented findings and plan of care. Patient was seen and examined.
[2017-12-30 11:38] LABS: Glucose,Whole Blood 235 mg/dL (75-99)
[2017-12-30] MEDS: MELOXICAM 7.5 MG TAB PO SCH (12:21)
[2017-12-30] MEDS: predniSONE 20 MG TAB PO SCH (12:22)
--- NOTE | 2017-12-30 12:24 | P.PN ---
Subjective Progress Note Date: 12/30/17 This a pleasant 87-year-old lady patient of Dr. Wilfrid Burris/ Dr Patterson. 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 She also has neck pain, polyarthritis, no pleurisy, slight cough , no new motor or neurologic deficits except weakness, She tried using her nebulizer treatments which is normally once a week now has used 3 times per day with no relief. She was seen in emergency room with septic-like picture with left shift and mild leukocytosis, without any source of infection. Chest x-ray failed to reveal an acute infiltrate however there is a radiodense ingested material noted on chest x-ray, urinalysis is normal. She comes in with A. fib with RVR, heart rate in the 110s She is evaluated in the emergency room showing an EKG in A. fib with rapid ventricular rate heart rate in the 120s at the time of admission. There is no ST segment elevation or depression. She was last seen by Dr. Dr. Patterson cardiology 4 weeks ago and was transitioned to eliquia from coumadin and she has chronic low back pain low back pain with numbness below the knee suspicious of L5 S1 radiculopathy, also has a headache for several years now mainly left side without any neurologic complaints she has dizziness and blurred vision for over 1 year and she also has insomnia, constipation and increasing weakness no recent falls at home intermittently she requires a cane for ambulation 12/28: Patient still has some cough and conversational dyspnea, shortness of breath long standing, nasal congestion, patient remains to be febrile, family is at bedside, we've started an IV Solu-Medrol secondary to the wheezing noted on examination also IV Lasix, she does have history of asthma, CT high resolution is obtained for pulmonary fibrosis, patient has pulmonary hypertension severe, she is on CPAP machine for which she is now compliant, still with epigastric discomfort, no melena and hematemesis . Consult with Dr. Pérez pulmonary medicine. Eliquis still on hold for an occipital nerve block to be done by Dr. Soliz in the next 24-48 hours . 12/29: Patient has been seen by Dr. Conde with recommendations to continue Rocephin and azithromycin. Patient is followed by cardiology. Continue IV Lasix at 40 mg daily and metoprolol 50 mg daily. Patient continues to have headache and this to be scheduled for occipital nerve block with Dr. Matson. Eliquis remains on hold for this. Daughter also brings up the patient had a recent right upper tooth infection which seems to be cleared at this time. Chlorhexidine was added. Consult with Dr. Pérez has been added. Patient was started on BiPAP for continued shortness of breath. 12/30: Patient has not had occipital nerve block and this will be canceled. Eliquis will be started. Voltaren gel added for pain control to the neck and occipital area and Mobic discontinued. PT and OT added and increased activity. Blood sugars are running in the 200s and metformin dosing increased to twice daily while on prednisone. White count is 11.1. CO2 is 40, BUN 23 and creatinine 0.5. Patient did use BiPAP during the night. Dr. Pérez is following with thought that this is more CHF than pneumonia. Patient was started on IV Lasix yesterday. Throat culture for strep was negative, urine culture 10-49,000 colonies genital malina, blood culture no growth after 120 hours. Anticipate discharge on Tuesday. Objective - Vital Signs Vital signs: Vital Signs Temp 98.0 F 12/29/17 16:55 Pulse 81 12/30/17 08:35 Resp 20 12/30/17 04:00 BP 145/70 12/30/17 04:00 Pulse Ox 96 12/30/17 04:00 Intake & Output 12/29/17 12/30/17 12/30/17 18:59 06:59 18:59 Intake Total 1460 1000 Output Total 600 Balance 1460 400 Weight 91.5 kg Intake: Intake, IV Titration 1000 Amount Sodium Chloride 0.9% 1, 1000 000 ml @ 100 mls/hr IV . Q10H [facility] Rx#:[id number] Oral 1460 Output: Urine 600 Other: Voiding Method Toilet Diaper # Voids 2 # Bowel Movements 1 - Exam General appearance: Present: cooperative, no acute distress - EENT Eyes: Present: anicteric sclerae, EOMI, PERRLA, dentition normal, normal appearance ENT: Present: hard of hearing, NA/AT, normal oropharynx - Neck Neck: Present: normal ROM - Respiratory Respiratory: bilateral: CTA, diminished, wheezing, prolonged inspiration - Cardiovascular Rhythm: regular Heart sounds: normal: S1, S2 - Gastrointestinal General gastrointestinal: Present: normal bowel sounds, soft - Integumentary Integumentary: Present: decreased turgor, normal - Neurologic Neurologic: Present: CNII-XII intact - Musculoskeletal Musculoskeletal: Present: gait normal, strength equal bilaterally - Psychiatric Psychiatric: Present: A&O x's 3. Absent: appropriate affect, intact judgment & insight - Labs CBC & Chem 7: 12/30/17 05:39 12/30/17 05:39 Labs: Abnormal Lab Results - Last 24 Hours (Table) 12/29/17 12/29/17 12/29/17 Range/Units 11:41 16:54 21:05 WBC (3.8-10.6) k/uL Neutrophils # (1.3-7.7) k/uL Chloride (98-107) mmol/L Carbon Dioxide (22-30) mmol/L BUN (7-17) mg/dL Creatinine (0.52-1.04) mg/dL Glucose (74-99) mg/dL POC Glucose (mg/dL) 217 H 260 H 283 H (75-99) mg/dL 12/30/17 12/30/17 12/30/17 Range/Units 05:39 05:39 05:58 WBC 11.1 H (3.8-10.6) k/uL Neutrophils # 9.3 H (1.3-7.7) k/uL Chloride 90 L (98-107) mmol/L Carbon Dioxide 40 H* (22-30) mmol/L BUN 23 H (7-17) mg/dL Creatinine 0.50 L (0.52-1.04) mg/dL Glucose 218 H (74-99) mg/dL POC Glucose (mg/dL) 204 H (75-99) mg/dL Microbiology - Last 24 Hours (Table) 12/25/17 03:45 Blood Culture - Preliminary Blood No Growth after 120 hours Assessment and Plan Plan: 1. Acute exacerbation shortness of breath chronic dyspnea possibly related to of atrial fibrillation with rapid ventricular rate, right pleural effusion, right-sided pneumonia, acute diastolic heart failure with severe pulmonary hypertension. Patient has been placed on BiPAP. Consult with cardiology and pulmonary medicine is appreciated. Continue DuoNeb treatments 4 times daily, a Zithromax and, ceftriaxone, Cardizem 30 mg 3 times daily, Lasix currently at 40 mg IV, prednisone 40 mg daily[address] Consult with Dr. Conde is appreciated. 2. Leukocytosis, sepsis secondary to pneumonia, calcitonin level normal IV antibiotics, no source in the urine recent dental abscess with dental extraction appears to be cleared. 3. Chronic anticoagulation with eliquis no side effects or complications at this time maintain dosing no changes made, cautioned on the use ibuprofen specially with chronic anticoagulation. 4. 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 Polyarthritis, Neuralgia right lower extremity with severe peripheral neuropathy. Underlying spinal stenosis cannot be ruled patient will be started on gabapentin 100 mg 3 times a day which would be titrated to symptom control 6. Possible underlying history of asthma active airway or COPD but has not been formally diagnosed and will need further workup as an outpatient. Symptoms may be due to heart failure only. Patient has appointment with Dr. Aviles as an outpatient and was scheduled by Dr. Wilfrid Burris. 7. Right pleural effusion, Lasix IV. 8. Chronic pain syndrome for which she is on hydrocodone 9. Carotid artery stenosis with mild plaque no significant hemodynamic stenosis noted September 2015 10. Hyperlipidemia not on any statin prior to admission were based on her previous CVA statins, I recommended this will be discussed with the patient however this is assured that it was discontinued in the past secondary to statin intolerance 11. Headache chronic with plan for occipital nerve block with Dr. Chase Jones. Eliquis resumed, meloxicam discontinued, Voltaren gel added. 12. Chronic sleep dysfunction melatonin 10 mg tablet will be started 13. Overactive bladder chronic not on any medications 14. Diabetes mellitus type 2 with hemoglobin A1c of 6.5. Continue with NovoLog scale. Glucometer ordered. Metformin 850 mg increased from daily to twice daily due to hyperglycemia from steroids. 15. Radio dense ingested material noted on x-ray, this seems to be around non- distinct nonmetallic type material on the gastric region. Significance is unknown GI prophylaxis and DVT prophylaxis provided she is on chronic anticoagulation for her atrial fibrillation Discharge plan: Home with [facility] was likely on Tuesday Impression and plan of care have been directed as dictated by the signing physician. Nikki Lauren nurse practitioner acting as scribe for signing physician.
--- NOTE | 2017-12-30 12:39 | P.PN ---
Subjective Progress Note Date: 12/30/17 Principal diagnosis: Acute exacerbation of congestive heart failure Pulmonary consult dated 12/29/2017 This is a patient who was admitted to the hospital on December 25. She came in initially with neck and shoulder pain. She was subsequently complaining of shortness of breath difficulty breathing coughing and was thought to have a combination of both heart failure and pneumonia. She does have a history of chronic atrial fibrillation. We will just consulted today for shortness of breath. Chest x-ray shows a patchy infiltrate in the left lower lobe and computed tomography scan showed some abnormalities in the left lower lobe and lingula as well as in the right midlung. Her complaints include primarily shortness of breath. She also had what appeared to be some lower extremity edema and also in addition had some difficulty laying flat in bed. Her shortness of breath with both at rest and on exertion but certainly much more significant on exertion. She really lacks a lot of symptoms consistent with pneumonia. She really wasn't producing any phlegm. She had no fever or chills likewise had no chest congestion. She does have a history of chronic atrial fibrillation CHF GERD hyperlipidemia hypertension DJD sleep apnea syndrome, currently on BiPAP therapy and a host of other medical problems. In addition, she smoked for about 20 years. She quit many years back. There may be some COPD but it appears to be mild at best. The patient is seen again today 12/30/2017 in follow-up on the selective care unit. She is awake and alert in no acute distress. She is breathing better today as compared to yesterday. Not quite back to her baseline. She is maintaining O2 saturations in the 90s on 3 L/m per nasal cannula. Alternating with BiPAP as needed. She is maintained on IV diuretics, anti arrhythmics and anticoagulated with Eliquis. She is continued on bronchodilators and antibiotics as well. Objective - Vital Signs Vital signs: Vital Signs Temp 97.7 F 12/30/17 08:00 Pulse 90 12/30/17 11:53 Resp 16 12/30/17 11:37 BP 132/75 12/30/17 08:00 Pulse Ox 96 12/30/17 08:00 Intake & Output 12/29/17 12/30/17 12/30/17 18:59 06:59 18:59 Intake Total 1460 1000 118 Output Total 600 Balance 1460 400 118 Weight 91.5 kg 91.5 kg Intake: Intake, IV Titration 1000 Amount Sodium Chloride 0.9% 1, 1000 000 ml @ 100 mls/hr IV . Q10H [facility] Rx#:[id number] Oral 1460 118 Output: Urine 600 Other: Voiding Method Toilet Diaper # Voids 2 # Bowel Movements 1 - Exam No acute distress, oriented 3. Nasal O2 in place. HEENT examination is grossly unremarkable. Mucous membranes are moist. No oral lesions. Neck supple. Full range of motion. No adenopathy thyromegaly or neck vein distention. Cardiovascular examination irregular rhythm and rate. She appears to be in atrial fibrillation. S1-S2 normal. No distinct murmurs noted. Heart sounds are distant. Lungs reveal scattered expiratory rhonchi. A few scattered crackles are noted. Breath sounds equal bilaterally. No wheezes are appreciated. Abdomen soft bowel sounds are heard. No masses or tenderness. Extremities are intact. Mild edema is noted. No cyanosis or clubbing. Skin is without rash or lesion. Neurologic examination is brief but nonfocal. - Labs CBC & Chem 7: 12/30/17 05:39 12/30/17 05:39 Labs: Abnormal Lab Results - Last 24 Hours (Table) 12/29/17 12/29/17 12/30/17 Range/Units 16:54 21:05 05:39 WBC (3.8-10.6) k/uL Neutrophils # (1.3-7.7) k/uL Chloride 90 L (98-107) mmol/L Carbon Dioxide 40 H* (22-30) mmol/L BUN 23 H (7-17) mg/dL Creatinine 0.50 L (0.52-1.04) mg/dL Glucose 218 H (74-99) mg/dL POC Glucose (mg/dL) 260 H 283 H (75-99) mg/dL 12/30/17 12/30/17 12/30/17 Range/Units 05:39 05:58 11:36 WBC 11.1 H (3.8-10.6) k/uL Neutrophils # 9.3 H (1.3-7.7) k/uL Chloride (98-107) mmol/L Carbon Dioxide (22-30) mmol/L BUN (7-17) mg/dL Creatinine (0.52-1.04) mg/dL Glucose (74-99) mg/dL POC Glucose (mg/dL) 204 H 235 H (75-99) mg/dL Microbiology - Last 24 Hours (Table) 12/25/17 03:45 Blood Culture - Preliminary Blood No Growth after 120 hours Assessment and Plan Assessment: Assessment Acute hypoxic respiratory failure secondary to underlying heart failure as well as possible pneumonia. History of chronic atrial fibrillation Possible but unlikely COPD Obesity CHF by history Gastroesophageal reflux disease Hyperlipidemia Hypertension DJD Sleep apnea syndrome, currently maintained on BiPAP therapy Plan: The patient was seen and evaluated by Dr. Pérez. She is improved today as compared to yesterday but not quite back to her baseline. We'll continue with her current treatment plan. Increase her activity as tolerated. We'll continue to follow. I, the cosigning physician, performed a history & physical examination of the patient. Lungs sounds with crackles in the bilateral posterior bases. Maintaining good O2 saturations in the 90s on 3 L/m per nasal cannula. I discussed the assessment and plan of care with my nurse practitioner, Migdalia Holguin. I attest to the above note as dictated by her.
[2017-12-30 17:06] LABS: Glucose,Whole Blood 381 mg/dL (75-99)
[2017-12-30] MEDS: metFORMIN 850 MG TAB PO SCH (17:18)
[2017-12-30] MEDS: BUDESONIDE 0.5 MG/2 ML NEBU INHALATION SCH (19:52)
[2017-12-30 20:49] LABS: Glucose,Whole Blood 254 mg/dL (75-99)
--- NOTE | 2017-12-30 23:12 | PN ---
PROGRESS NOTE DATE OF SERVICE: 12/30/2017. REASON FOR FOLLOWUP: Pneumonia. INTERVAL HISTORY: The patient is afebrile. She has been breathing more comfortably. The cough has decreased in intensity and is mostly dry in nature. No chest pain. No abdominal pain, no diarrhea. EXAMINATION: Blood pressure 125/75 with a pulse of 80, temperature 97.9, satting 99% on room air. The patient is an elderly female lying in bed in no distress. Respiratory system, unlabored breathing, clear to auscultation anteriorly. Heart S1, S2. Regular rate and rhythm. Abdomen soft. LABS: Hemoglobin 13.1, white count 11.1, BUN of 23, creatinine 0.50. Blood culture has been negative. No sputum was provided. DIAGNOSTIC IMPRESSION AND PLAN: Patient admitted to the hospital with difficulty breathing. Did have a cough with likely concern for community-acquired pneumonia. The patient's fever responded to Rocephin and Zithromax. Will finish therapy with oral Ceftin. Continue supportive care condition. MMODL / IJN: [id number] /
[2017-12-30] MEDS: amLODIPine 5 MG TAB PO SCH (23:30)
[2017-12-31 06:06] LABS: Glucose,Whole Blood 128 mg/dL (75-99)
[2017-12-31] MEDS: cefTRIAXone IN SWFI 2,000 MG/20 ML SYRINGE IVP SCH (06:19)
[2017-12-31] MEDS: INSULIN ASPART 100 UNIT/ML 1 ML 10 ML VIAL SQ SCH ×4 (06:21→21:43)
[2017-12-31 06:35] LABS: Basophils % (A) 0 %; Eosinophils % (A) 0 %; HCT 40.5 % (34.0-46.0); Lymphocytes # (A) 1.8 k/uL (1.0-4.8); Lymphocytes % (A) 15 %; MCH 28.6 pg (25.0-35.0); MCHC 32.1 g/dL (31.0-37.0); MCV 89.1 fL (80.0-100.0); Mean Platelet Volume 6.5; Monocytes # (A) 0.7 k/uL (0-1.0); Monocytes % (A) 6 %; Neutrophils # (A) 9.3 k/uL (1.3-7.7); Neutrophils % (A) 78 %; Platelet Count 298 k/uL (150-450); RBC 4.54 m/uL (3.80-5.40); RDW 13.6 % (11.5-15.5); WBC 11.9 k/uL (3.8-10.6)
[2017-12-31 06:41] LABS: Blood Urea Nitrogen 30 mg/dL (7-17); Calcium 8.8 mg/dL (8.4-10.2); Chloride 88 mmol/L (98-107); Glucose 145 mg/dL (74-99); Potassium 3.4 mmol/L (3.5-5.1); Sodium 142 mmol/L (137-145)
[2017-12-31 06:48] LABS: Anion Gap 10 mmol/L
[2017-12-31 06:57] LABS: Carbon Dioxide 44 mmol/L (22-30)
[2017-12-31] MEDS: metFORMIN 850 MG TAB PO SCH ×2 (07:00→18:11)
[2017-12-31] MEDS: PANTOPRAZOLE 40 MG TABLET PO SCH (07:00)
[2017-12-31] MEDS: IPRATROPIUM-ALBUTEROL 3 ML NEB INHALATION SCH ×4 (08:18→20:28)
[2017-12-31] MEDS: BUDESONIDE 0.5 MG/2 ML NEBU INHALATION SCH ×2 (08:18→20:29)
[2017-12-31] MEDS: DICLOFENAC SODIUM GEL 100 GM TUBE TOPICAL SCH ×4 (08:57→20:46)
[2017-12-31] MEDS: APIXABAN 2.5 MG TABLET PO SCH ×2 (08:58→20:47)
[2017-12-31] MEDS: BACLOFEN 10 MG TAB PO SCH ×3 (08:58→20:47)
[2017-12-31] MEDS: AZITHROMYCIN 500 MG TAB PO SCH (08:58)
[2017-12-31] MEDS: FLUTICASONE 50MCG/SPRAY NASAL 16GM EA NOSTRIL SCH ×2 (08:59→20:49)
[2017-12-31] MEDS: CHLORHEXIDINE GLUCONATE 15 ML CUP MUCOUS MEM SCH ×2 (08:59→21:44)
[2017-12-31] MEDS: DILTIAZEM ORAL 30 MG TAB PO SCH ×3 (08:59→20:48)
[2017-12-31] MEDS: FUROSEMIDE 10 MG/ML 4 ML VIAL IV SCH (09:00)
[2017-12-31] MEDS: GABAPENTIN 100 MG CAP PO SCH ×2 (09:00→20:47)
[2017-12-31] MEDS: predniSONE 20 MG TAB PO SCH (09:01)
[2017-12-31] MEDS: LOSARTAN-HCTZ 50-12.5 MG 1 EACH TAB PO SCH (09:01)
[2017-12-31] MEDS: METOPROLOL SUCCINATE (ER) 50 MG TAB.ER.24H PO SCH (09:01)
[2017-12-31] MEDS: SERTRALINE 25 MG TAB PO SCH (09:35)
--- NOTE | 2017-12-31 10:25 | P.PN ---
Subjective Progress Note Date: 12/31/17 Principal diagnosis: Weakness Progress note dated 12/31/2017 This is a 87-year-old patient who was admitted to the hospital on December 25. She initially came with neck and shoulder pain. Subsequent to that, she started complaining of shortness of breath. She was diagnosed as having both heart failure and pneumonia. She was seen yesterday by my nurse practitioner. Her respiratory status has improved. She remains on oxygen. She does feel very weak. She likely will be discharged to some [facility] rehab facility and/or half-way. She has a history of acute hypoxemic respiratory failure secondary to heart failure and possible pneumonia, chronic atrial fibrillation possible COPD , obesity, heart failure, GERD, hyperlipidemia, hypertension, DJD, sleep apnea syndrome and morbid obesity. The patient continues wear oxygen. Does not appear to be any worse and she was a day before or the day before that. Objective - Vital Signs Vital signs: Vital Signs Temp 98 F 12/31/17 04:00 Pulse 92 12/31/17 08:38 Resp 28 H 12/31/17 04:00 BP 132/79 12/31/17 04:00 Pulse Ox 99 12/31/17 04:00 Intake & Output 12/30/17 12/31/17 12/31/17 18:59 06:59 18:59 Intake Total 718 100 240 Output Total 600 Balance 718 -500 240 Weight 91.5 kg 90.5 kg Intake: Oral 718 100 240 Output: Urine 600 Other: Voiding Method Bedside Commode Bedside Commode Diaper Diaper # Voids 1 1 1 # Bowel Movements 1 - Exam No acute distress, oriented 3. Currently wearing O2. HEENT examination is grossly unremarkable. Mucous membranes are moist. No oral lesions. Neck supple. Full range of motion. No adenopathy thyromegaly or neck vein distention. Cardiovascular examination reveals irregular rhythm and rate. S1-S2 normal. No S3 or S4. No discernible murmur noted. Heart sounds are distant. Lungs reveal scattered expiratory rhonchi. A few scattered crackles are appreciated. Breath sounds equal bilaterally. No wheezes are noted.. Abdomen soft bowel sounds are heard. No masses or tenderness. Extremities are intact. No cyanosis clubbing or edema. Skin is without rash or lesion. Neurologic examination is brief but nonfocal. - Labs CBC & Chem 7: 12/31/17 06:05 12/31/17 06:05 Labs: Abnormal Lab Results - Last 24 Hours (Table) 12/30/17 12/30/17 12/30/17 Range/Units 11:36 16:59 20:47 WBC (3.8-10.6) k/uL Neutrophils # (1.3-7.7) k/uL Potassium (3.5-5.1) mmol/L Chloride (98-107) mmol/L Carbon Dioxide (22-30) mmol/L BUN (7-17) mg/dL Glucose (74-99) mg/dL POC Glucose (mg/dL) 235 H 381 H 254 H (75-99) mg/dL 12/31/17 12/31/17 12/31/17 Range/Units 06:04 06:05 06:05 WBC 11.9 H (3.8-10.6) k/uL Neutrophils # 9.3 H (1.3-7.7) k/uL Potassium 3.4 L (3.5-5.1) mmol/L Chloride 88 L (98-107) mmol/L Carbon Dioxide 44 H* (22-30) mmol/L BUN 30 H (7-17) mg/dL Glucose 145 H (74-99) mg/dL POC Glucose (mg/dL) 128 H (75-99) mg/dL Microbiology - Last 24 Hours (Table) 12/25/17 03:45 Blood Culture - Final Blood No Growth after 144 hours Assessment and Plan Assessment: Assessment Shortness of breath, likely multifactorial in part related to underlying heart failure as well as possible pneumonia. History of chronic atrial fibrillation Possible but unlikely COPD Obesity CHF by history Gastroesophageal reflux disease Hyperlipidemia Hypertension DJD Sleep apnea syndrome, currently maintained on BiPAP therapy Plan: Plan dated 12/29/2017 The patient's medications labs and x-rays all reviewed. Additional recommendations and suggestions are forthcoming. Medications are reviewed as well. It appears that her shortness of breath is likely as a result of heart failure as well as possible pneumonia. I favor the former rather than the latter given her history. She may also have some underlying COPD which may be contributing to her problems although she only smoked for about 20 or 25 years. Plan dated 12/31/2017 The patient's microbiologic studies are all negative. White count 11.9 hemoglobin 13 hematocrit 40.5 and platelet count normal. Sodium was 142, potassium 3.4 chloride is 88 and CO2 44. BUN and creatinine were 30 and 0.7 The patient continues to show improvement. She likely be discharged to rehab facility or half-way. Her biggest complaint is that she is very weak and she feels short of breath with any activity. We'll continue to follow. Time with Patient: Less than 30
[2017-12-31] MEDS: LIDOCAINE 5% PATCH TOPICAL SCH (11:04)
[2017-12-31 11:49] LABS: Glucose,Whole Blood 171 mg/dL (75-99)
--- NOTE | 2017-12-31 12:12 | P.PN ---
Subjective Progress Note Date: 12/31/17 THis is a pleasant 87-year-old female with chronic multiple and complex medical problems including hypertension, chronic atrial fibrillation, on ELiquis, diabetes. She presented to the hospital with complaints of shortness of breath and left-sided headache and facial pain. On initial presentation, she had mild fever and elevated lactic acid level. FOcus of infection is undetermined at this time. EKG showed atrial fibrillation with RVR with nonspecific ST-T waves abnormalities. Heart rate is currently better controlled but patient continues to complain of shortness of breath. She did sleep well through the night last night, using her CPAP. She has known LV systolic function of 45%. BNP is not elevated at 997. SHe has history of cath showing normal coronaries and subsequent negative stress testing. Blood pressure this morning 138/76 with a heart rate in the 90 range, 98% on 5 L of oxygen. White blood cell count 7.0, hemoglobin 12.7, platelet count 280. Sodium 143, potassium 3.5, BUN 14, creatinine 0.5. The repeat BNP level was performed which came back to be 2089. She did have a CAT scan of the chest performed which revealed cardiomegaly, right pleural effusion and associated atelectasis, correlate for possible pneumonia. Indeterminant liver lesions. Patient is currently on Lasix 40 mg IV daily. 12/30/2017 Patient was seen and examined this morning, overall her breathing is improving. She has not yet been out of the bed, physical therapy consultation has been requested for today. She continues to be on 40 mg of IV Lasix daily as well as antibiotics for pneumonia. Blood pressure 144/70 with a heart rate in the 80s, 96% on 3 L of oxygen. White blood cell count 11.1, hemoglobin 13.2, platelet count 232. Sodium 140, potassium 3.5, BUN 23, creatinine 0.5. 12/31/2017 Patient seen and examined this morning, breathing is improving overall, she just complains of feeling extremely weak. Blood pressure 128/70 with a heart rate in the 70s, 98% on 3 L of oxygen. White blood cell count 11.9, hemoglobin 13.0, platelet count 298. Sodium 142, potassium 3.4, BUN 30, creatinine 0.7. Objective - Vital Signs Vital signs: Vital Signs Temp 97.2 F L 12/31/17 12:00 Pulse 72 12/31/17 12:00 Resp 18 12/31/17 12:00 BP 128/73 12/31/17 12:00 Pulse Ox 98 12/31/17 12:00 Intake & Output 12/30/17 12/31/17 12/31/17 18:59 06:59 18:59 Intake Total 718 100 240 Output Total 600 Balance 718 -500 240 Weight 91.5 kg 90.5 kg Intake: Oral 718 100 240 Output: Urine 600 Other: Voiding Method Bedside Commode Bedside Commode Bedside Commode Diaper Diaper Diaper # Voids 1 1 1 # Bowel Movements 1 - Exam PHYSICAL EXAMINATION: GENERAL: 87-year-old female in no acute distress at the time of my examination HEENT: Head is atraumatic, normocephalic. Pupils equal, round. Sclera anicteric. Conjunctiva are clear. Mucous membranes of the mouth are moist. Neck is supple. There is no elevated jugular venous pressure.] bruit is heard. HEART EXAMINATION: Heart S1, S2 normal. No murmur or gallop heard. CHEST EXAMINATION: Lungs reveal improvement in air entry bilaterally with some expiratory wheezing noted. ABDOMEN: Soft, nontender. Bowel sounds are heard. No organomegaly noted. EXTREMITIES: 2+ peripheral pulses with no evidence of peripheral edema and no calf tenderness noted. NEUROLOGIC patient is awake, alert and oriented ?-3. . - Labs CBC & Chem 7: 12/31/17 06:05 12/31/17 06:05 Labs: Abnormal Lab Results - Last 24 Hours (Table) 12/30/17 12/30/17 12/31/17 Range/Units 16:59 20:47 06:04 WBC (3.8-10.6) k/uL Neutrophils # (1.3-7.7) k/uL Potassium (3.5-5.1) mmol/L Chloride (98-107) mmol/L Carbon Dioxide (22-30) mmol/L BUN (7-17) mg/dL Glucose (74-99) mg/dL POC Glucose (mg/dL) 381 H 254 H 128 H (75-99) mg/dL 12/31/17 12/31/17 12/31/17 Range/Units 06:05 06:05 11:29 WBC 11.9 H (3.8-10.6) k/uL Neutrophils # 9.3 H (1.3-7.7) k/uL Potassium 3.4 L (3.5-5.1) mmol/L Chloride 88 L (98-107) mmol/L Carbon Dioxide 44 H* (22-30) mmol/L BUN 30 H (7-17) mg/dL Glucose 145 H (74-99) mg/dL POC Glucose (mg/dL) 171 H (75-99) mg/dL Microbiology - Last 24 Hours (Table) 12/25/17 03:45 Blood Culture - Final Blood No Growth after 144 hours Assessment and Plan Plan: Assessment #1 shortness of breath which is likely related to multiple reasons including a component of heart failure, diastolic acute on chronic, as well as component of severe pulmonary hypertension and pneumonia #2 mild nonischemic cardiomyopathy #3 chronic atrial fibrillation was controlled heart rate #4 morbid obesity #5 obstructive sleep apnea Plan From cardiology's perspective, the Lasix will be discontinued and patient on oral diuretics. Arrangements are being made for patient to potentially go to rehab post discharge. We will follow griffin BUN and creatinine in the morning. DNP note has been reviewed, I agree with a documented findings and plan of care. Patient was seen and examined.
--- NOTE | 2017-12-31 14:59 | P.PN ---
Subjective Progress Note Date: 12/31/17 This a pleasant 87-year-old lady patient of Dr. Wilfrid Burris/ Dr Patterson. 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 She also has neck pain, polyarthritis, no pleurisy, slight cough , no new motor or neurologic deficits except weakness, She tried using her nebulizer treatments which is normally once a week now has used 3 times per day with no relief. She was seen in emergency room with septic-like picture with left shift and mild leukocytosis, without any source of infection. Chest x-ray failed to reveal an acute infiltrate however there is a radiodense ingested material noted on chest x-ray, urinalysis is normal. She comes in with A. fib with RVR, heart rate in the 110s She is evaluated in the emergency room showing an EKG in A. fib with rapid ventricular rate heart rate in the 120s at the time of admission. There is no ST segment elevation or depression. She was last seen by Dr. Dr. Patterson cardiology 4 weeks ago and was transitioned to eliquia from coumadin and she has chronic low back pain low back pain with numbness below the knee suspicious of L5 S1 radiculopathy, also has a headache for several years now mainly left side without any neurologic complaints she has dizziness and blurred vision for over 1 year and she also has insomnia, constipation and increasing weakness no recent falls at home intermittently she requires a cane for ambulation 12/28: Patient still has some cough and conversational dyspnea, shortness of breath long standing, nasal congestion, patient remains to be febrile, family is at bedside, we've started an IV Solu-Medrol secondary to the wheezing noted on examination also IV Lasix, she does have history of asthma, CT high resolution is obtained for pulmonary fibrosis, patient has pulmonary hypertension severe, she is on CPAP machine for which she is now compliant, still with epigastric discomfort, no melena and hematemesis . Consult with Dr. Pérez pulmonary medicine. Eliquis still on hold for an occipital nerve block to be done by Dr. Soliz in the next 24-48 hours . 12/29: Patient has been seen by Dr. Conde with recommendations to continue Rocephin and azithromycin. Patient is followed by cardiology. Continue IV Lasix at 40 mg daily and metoprolol 50 mg daily. Patient continues to have headache and this to be scheduled for occipital nerve block with Dr. Matson. Eliquis remains on hold for this. Daughter also brings up the patient had a recent right upper tooth infection which seems to be cleared at this time. Chlorhexidine was added. Consult with Dr. Pérez has been added. Patient was started on BiPAP for continued shortness of breath. 12/30: Patient has not had occipital nerve block and this will be canceled. Eliquis will be started. Voltaren gel added for pain control to the neck and occipital area and Mobic discontinued. PT and OT added and increased activity. Blood sugars are running in the 200s and metformin dosing increased to twice daily while on prednisone. White count is 11.1. CO2 is 40, BUN 23 and creatinine 0.5. Patient did use BiPAP during the night. Dr. Pérez is following with thought that this is more CHF than pneumonia. Patient was started on IV Lasix yesterday. Throat culture for strep was negative, urine culture 10-49,000 colonies genital malina, blood culture no growth after 120 hours. Anticipate discharge on Tuesday. 12/31 patient complains of significant generalized weakness today. Labs suggestive of creatinine 0.7, bicarb 44 concerning for chronic retention of CO2. Patient is on 3 L of oxygen and was not requiring any oxygen at home. IV Lasix changed to oral Lasix. Chest x-ray ordered as patient requiring increased oxygen Objective - Vital Signs Vital signs: Vital Signs Temp 97.2 F L 12/31/17 12:00 Pulse 72 12/31/17 12:00 Resp 18 12/31/17 12:00 BP 128/73 12/31/17 12:00 Pulse Ox 98 12/31/17 12:00 Intake & Output 12/30/17 12/31/17 12/31/17 18:59 06:59 18:59 Intake Total 718 100 720 Output Total 600 Balance 718 -500 720 Weight 91.5 kg 90.5 kg Intake: Oral 718 100 720 Output: Urine 600 Other: Voiding Method Bedside Commode Bedside Commode Bedside Commode Diaper Diaper Diaper # Voids 1 1 1 # Bowel Movements 1 - Exam - Constitutional General appearance: cooperative, mild acute distress, obese - EENT Eyes: anicteric sclerae, PERRLA, normal appearance ENT: hearing grossly normal - Neck Neck: no lymphadenopathy, normal ROM, no other, no rigidity, no stridor, no thyromegaly - Respiratory Respiratory: bilateral decreased air entry at the bases with crackles - Cardiovascular Rhythm: regular Heart sounds: normal: S1, S2 Abnormal Heart Sounds: no systolic murmur, no diastolic murmur, no rub, no S3 Gallop, no S4 Gallop, no click, no other - Gastrointestinal General gastrointestinal: normal bowel sounds, soft, nontender - Integumentary Integumentary: no rash - Neurologic Neurologic: CNII-XII intact, generalized weakness 4/5 bilaterally Sensation intact normal reflexes - Musculoskeletal Musculoskeletal: strength equal bilaterally - Psychiatric Psychiatric: A&O x's 3, appropriate affect - Labs CBC & Chem 7: 12/31/17 06:05 12/31/17 06:05 Labs: Abnormal Lab Results - Last 24 Hours (Table) 12/30/17 12/30/17 12/31/17 Range/Units 16:59 20:47 06:04 WBC (3.8-10.6) k/uL Neutrophils # (1.3-7.7) k/uL Potassium (3.5-5.1) mmol/L Chloride (98-107) mmol/L Carbon Dioxide (22-30) mmol/L BUN (7-17) mg/dL Glucose (74-99) mg/dL POC Glucose (mg/dL) 381 H 254 H 128 H (75-99) mg/dL 12/31/17 12/31/17 12/31/17 Range/Units 06:05 06:05 11:29 WBC 11.9 H (3.8-10.6) k/uL Neutrophils # 9.3 H (1.3-7.7) k/uL Potassium 3.4 L (3.5-5.1) mmol/L Chloride 88 L (98-107) mmol/L Carbon Dioxide 44 H* (22-30) mmol/L BUN 30 H (7-17) mg/dL Glucose 145 H (74-99) mg/dL POC Glucose (mg/dL) 171 H (75-99) mg/dL Microbiology - Last 24 Hours (Table) 12/25/17 03:45 Blood Culture - Final Blood No Growth after 144 hours Assessment and Plan Plan: 1. Acute exacerbation shortness of breath chronic dyspnea possibly related to of atrial fibrillation with rapid ventricular rate, right pleural effusion, right-sided pneumonia, acute diastolic heart failure with severe pulmonary hypertension. Patient has been placed on BiPAP. Consult with cardiology and pulmonary medicine is appreciated. Continue DuoNeb treatments 4 times daily, a Zithromax and, ceftriaxone, Cardizem 30 mg 3 times daily, Lasix currently at 40 mg po, prednisone [address] Conde is appreciated. 2. Leukocytosis, sepsis secondary to pneumonia, calcitonin level normal IV antibiotics, no source in the urine recent dental abscess with dental extraction appears to be cleared. 3. Chronic anticoagulation with eliquis no side effects or complications at this time maintain dosing no changes made, cautioned on the use ibuprofen specially with chronic anticoagulation. 4. 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 Polyarthritis, Neuralgia right lower extremity with severe peripheral neuropathy. Underlying spinal stenosis cannot be ruled patient will be started on gabapentin 100 mg 3 times a day which would be titrated to symptom control 6. Possible underlying history of asthma active airway or COPD but has not been formally diagnosed and will need further workup as an outpatient. Symptoms may be due to heart failure only. Patient has appointment with Dr. Aviles as an outpatient and was scheduled by Dr. Wilfrid Burris. 7. Right pleural effusion, Lasix IV. 8. Chronic pain syndrome for which she is on hydrocodone 9. Carotid artery stenosis with mild plaque no significant hemodynamic stenosis noted September 2015 10. Hyperlipidemia not on any statin prior to admission were based on her previous CVA statins, I recommended this will be discussed with the patient however this is assured that it was discontinued in the past secondary to statin intolerance 11. Headache chronic with plan for occipital nerve block with Dr. Chase Jones. Eliquis resumed, meloxicam discontinued, Voltaren gel added. 12. Chronic sleep dysfunction melatonin 10 mg tablet will be started 13. Overactive bladder chronic not on any medications 14. Diabetes mellitus type 2 with hemoglobin A1c of 6.5. Continue with NovoLog scale. Glucometer ordered. Metformin 850 mg increased from daily to twice daily due to hyperglycemia from steroids. 15. Radio dense ingested material noted on x-ray, this seems to be around non- distinct nonmetallic type material on the gastric region. Significance is unknown GI prophylaxis and DVT prophylaxis provided she is on chronic anticoagulation for her atrial fibrillation Discharge plan: PT OT evaluation pending likely rehab
--- NOTE | 2017-12-31 15:37 | XR ---
EXAMINATION TYPE: XR chest 2V DATE OF EXAM: 12/31/2017 COMPARISON: 12/28/2017 CT chest HISTORY: Dyspnea. Pulmonary fibrosis. Congestion. TECHNIQUE: Frontal and lateral views of the chest are obtained. FINDINGS: There is slight improvement in aeration in the lung bases in comparison to prior chest rad iographs of 12/27/2017. Interstitial edema has also improved. Minimal pulmonary vascular congestion rem ains. Cardia megaly is again seen. The osseous structures are grossly intact. IMPRESSION: Appearance of improving congestive heart failure.
[2017-12-31 17:00] LABS: Glucose,Whole Blood 239 mg/dL (75-99)
--- NOTE | 2017-12-31 17:49 | PN ---
PROGRESS NOTE DATE OF SERVICE: 12/31/2017 REASON FOR FOLLOWUP VISIT: Pneumonia. INTERVAL HISTORY: The patient is afebrile. She seemed to be breathing more comfortably, patient denies having any chest pain. Did have some cough but not bringing up any sputum. No nausea, no vomiting. No abdominal pain, no diarrhea. PHYSICAL EXAMINATION: Blood pressure is 131/75 with a pulse of 72, temperature 97.9, She is 96% on 3 L nasal cannula. General description is an elderly female, lying in bed in no distress. RESPIRATORY SYSTEM: Unlabored breathing, clear to auscultation anteriorly. HEART: S1, S2. Regular rate and rhythm. ABDOMEN: Soft, no tenderness. LABS: Hemoglobin is 13, white count 11.8. BUN of 30, creatinine 0.70. DIAGNOSTIC IMPRESSION AND PLAN: Patient admitted to the hospital with a fever with concern for pneumonia, likely community-acquired. The patient did have shown clinical improvement on Rocephin and Zithromax with the plan to finish therapy with oral Ceftin for about 3 to 5 days. Family present at bedside. Their questions were answered. MMODL / IJN: [id number] /
[2017-12-31] MEDS: amLODIPine 5 MG TAB PO SCH (20:52)
[2017-12-31 21:24] LABS: Glucose,Whole Blood 238 mg/dL (75-99)
[2018-01-01 05:43] LABS: Glucose,Whole Blood 199 mg/dL (75-99)
[2018-01-01] MEDS: cefTRIAXone IN SWFI 2,000 MG/20 ML SYRINGE IVP SCH (05:53)
[2018-01-01] MEDS: INSULIN ASPART 100 UNIT/ML 1 ML 10 ML VIAL SQ SCH ×4 (06:47→21:46)
[2018-01-01] MEDS: PANTOPRAZOLE 40 MG TABLET PO SCH (06:48)
[2018-01-01] MEDS: metFORMIN 850 MG TAB PO SCH ×2 (06:48→18:55)
[2018-01-01] MEDS: BUDESONIDE 0.5 MG/2 ML NEBU INHALATION SCH ×2 (08:06→19:27)
[2018-01-01] MEDS: IPRATROPIUM-ALBUTEROL 3 ML NEB INHALATION SCH ×4 (08:08→19:27)
[2018-01-01] MEDS: AZITHROMYCIN 500 MG TAB PO SCH (09:28)
[2018-01-01] MEDS: CHLORHEXIDINE GLUCONATE 15 ML CUP MUCOUS MEM SCH ×2 (09:29→20:34)
[2018-01-01] MEDS: LIDOCAINE 5% PATCH TOPICAL SCH (09:29)
[2018-01-01] MEDS: DILTIAZEM ORAL 30 MG TAB PO SCH ×3 (09:29→20:34)
[2018-01-01] MEDS: BACLOFEN 10 MG TAB PO SCH (09:29)
[2018-01-01] MEDS: predniSONE 20 MG TAB PO SCH (09:29)
[2018-01-01] MEDS: APIXABAN 2.5 MG TABLET PO SCH ×2 (09:30→20:34)
[2018-01-01] MEDS: LOSARTAN-HCTZ 50-12.5 MG 1 EACH TAB PO SCH (09:30)
[2018-01-01] MEDS: GABAPENTIN 100 MG CAP PO SCH ×3 (09:30→20:33)
[2018-01-01] MEDS: FUROSEMIDE 40 MG TAB PO SCH (09:30)
[2018-01-01] MEDS: FLUTICASONE 50MCG/SPRAY NASAL 16GM EA NOSTRIL SCH ×2 (09:31→20:34)
[2018-01-01] MEDS: DICLOFENAC SODIUM GEL 100 GM TUBE TOPICAL SCH ×4 (09:31→20:33)
[2018-01-01] MEDS: SERTRALINE 25 MG TAB PO SCH (09:31)
[2018-01-01] MEDS: ACETAMINOPHEN TAB 325 MG TAB PO PRN (09:32)
[2018-01-01] MEDS: METOPROLOL SUCCINATE (ER) 50 MG TAB.ER.24H PO SCH (09:32)
--- NOTE | 2018-01-01 09:42 | P.PN ---
Subjective Progress Note Date: 01/01/18 Principal diagnosis: Shortness of breath This is a pleasant 87-year-old female with chronic multiple and complex medical problems including hypertension, chronic atrial fibrillation on Eliquis, diabetes, obstructive sleep apnea, and severe pulmonary hypertension. She presented to the hospital with complaints of shortness of breath and left- sided headache and facial pain. On initial presentation, she had mild fever and elevated lactic acid level. The source of infection is unknown at this point. The patient is in process to be seen by an infectious disease service. The EKG showed atrial fibrillation with RVR with nonspecific ST-T waves abnormalities. Heart rate is currently better controlled but patient continues to complain of shortness of breath. She has known LV systolic function of 45%. BNP is not elevated at 997. She had a cath showing normal coronaries. On follow-up with her today, she is feeling better in terms of shortness of breath. She still feels weak and unable to walk without assistance. She does have diminished breathing sounds bilaterally and very mild bilateral lower extremities edema which has improved significantly. Yesterday we switch him from Lasix IV to Lasix by mouth. The kidney function seems to be within normal limits today. Objective - Vital Signs Vital signs: Vital Signs Temp 96.1 F L 12/31/17 20:00 Pulse 72 01/01/18 08:21 Resp 16 01/01/18 04:00 BP 134/63 01/01/18 04:00 Pulse Ox 97 01/01/18 08:08 Intake & Output 12/31/17 01/01/18 01/01/18 18:59 06:59 18:59 Intake Total 960 Balance 960 Weight 91.2 kg Intake: Oral 960 Other: Voiding Method Bedside Commode Toilet Diaper # Voids 2 1 - Constitutional General appearance: Present: no acute distress - Respiratory Respiratory: bilateral: diminished, rales - Cardiovascular Rhythm: irregularly irregular Heart sounds: normal: S1, S2 - Labs CBC & Chem 7: 12/31/17 06:05 12/31/17 06:05 Labs: Abnormal Lab Results - Last 24 Hours (Table) 12/31/17 12/31/17 12/31/17 Range/Units 11:29 16:46 21:14 POC Glucose (mg/dL) 171 H 239 H 238 H (75-99) mg/dL 01/01/18 Range/Units 05:42 POC Glucose (mg/dL) 199 H (75-99) mg/dL Microbiology - Last 24 Hours (Table) 12/25/17 03:45 Blood Culture - Final Blood No Growth after 144 hours Assessment and Plan Assessment: Assessment #1 shortness of breath which is likely related to multiple reasons including a component of heart failure as well as component of severe pulmonary hypertension as well as morbid obesity #2 mild nonischemic cardiomyopathy #3 chronic atrial fibrillation was controlled heart rate #4 morbid obesity #5 obstructive sleep apnea Plan #1 continue the current dose of Lasix by mouth #2 follow-up with the patient
--- NOTE | 2018-01-01 10:46 | P.PN ---
Subjective Progress Note Date: 01/01/18 Principal diagnosis: Weakness Progress note dated 12/31/2017 This is a 87-year-old patient who was admitted to the hospital on December 25. She initially came with neck and shoulder pain. Subsequent to that, she started complaining of shortness of breath. She was diagnosed as having both heart failure and pneumonia. She was seen yesterday by my nurse practitioner. Her respiratory status has improved. She remains on oxygen. She does feel very weak. She likely will be discharged to some [facility] rehab facility and/or detention. She has a history of acute hypoxemic respiratory failure secondary to heart failure and possible pneumonia, chronic atrial fibrillation possible COPD , obesity, heart failure, GERD, hyperlipidemia, hypertension, DJD, sleep apnea syndrome and morbid obesity. The patient continues wear oxygen. Does not appear to be any worse and she was a day before or the day before that. Progress note dated 01/01/2018 87-year-old female admitted on December 25. She came in with neck and shoulder pain. In addition, she developed shortness of breath. She was diagnosed as having both CHF and pneumonia. The patient's respiratory status has improved. Her primary problem is weakness. With any activity, she becomes very short of breath. The patient will likely be discharged to a rehab facility or detention. I'm not sure that one has been decided upon as yet. She has a history of acute hypoxemic respiratory failure, heart failure, pneumonia, atrial fibrillation, possible COPD, obesity, GERD, hyperlipidemia, hypertension, DJD, sleep apnea syndrome and morbid obesity. The patient has shown steady improvement over the last couple of days. Objective - Vital Signs Vital signs: Vital Signs Temp 96.1 F L 12/31/17 20:00 Pulse 72 01/01/18 08:21 Resp 16 01/01/18 04:00 BP 134/63 01/01/18 04:00 Pulse Ox 97 01/01/18 08:08 Intake & Output 12/31/17 01/01/18 01/01/18 18:59 06:59 18:59 Intake Total 960 Balance 960 Weight 91.2 kg Intake: Oral 960 Other: Voiding Method Bedside Commode Toilet Diaper # Voids 2 1 - Exam No acute distress, oriented 3. Currently wearing O2. HEENT examination is grossly unremarkable. Mucous membranes are moist. No oral lesions. Neck supple. Full range of motion. No adenopathy thyromegaly or neck vein distention. Cardiovascular examination reveals irregular rhythm and rate. S1-S2 normal. No S3 or S4. No discernible murmur noted. Heart sounds are distant. Lungs reveal scattered expiratory rhonchi. A few scattered crackles are appreciated. Breath sounds equal bilaterally. No wheezes are noted.. Abdomen soft bowel sounds are heard. No masses or tenderness. Extremities are intact. No cyanosis clubbing or edema. Skin is without rash or lesion. Neurologic examination is brief but nonfocal. - Labs CBC & Chem 7: 12/31/17 06:05 12/31/17 06:05 Labs: Abnormal Lab Results - Last 24 Hours (Table) 12/31/17 12/31/17 12/31/17 Range/Units 11:29 16:46 21:14 POC Glucose (mg/dL) 171 H 239 H 238 H (75-99) mg/dL 01/01/18 Range/Units 05:42 POC Glucose (mg/dL) 199 H (75-99) mg/dL Assessment and Plan Assessment: Assessment Shortness of breath, likely multifactorial in part related to underlying heart failure as well as possible pneumonia. History of chronic atrial fibrillation Possible but unlikely COPD Obesity CHF by history Gastroesophageal reflux disease Hyperlipidemia Hypertension DJD Sleep apnea syndrome, currently maintained on BiPAP therapy Plan: Plan dated 12/29/2017 The patient's medications labs and x-rays all reviewed. Additional recommendations and suggestions are forthcoming. Medications are reviewed as well. It appears that her shortness of breath is likely as a result of heart failure as well as possible pneumonia. I favor the former rather than the latter given her history. She may also have some underlying COPD which may be contributing to her problems although she only smoked for about 20 or 25 years. Plan dated 12/31/2017 The patient's microbiologic studies are all negative. White count 11.9 hemoglobin 13 hematocrit 40.5 and platelet count normal. Sodium was 142, potassium 3.4 chloride is 88 and CO2 44. BUN and creatinine were 30 and 0.7 The patient continues to show improvement. She likely be discharged to rehab facility or detention. Her biggest complaint is that she is very weak and she feels short of breath with any activity. We'll continue to follow. Plan dated 01/01/2018 The patient's overall clinical status has improved. Microbiology remains negative. No new labs today. Chest x-ray from yesterday shows improvement of the patient's volume status. The patient is likely ready for discharge to a detention or rehab facility in the morning. No additional recommendations are made. We'll continue to follow. Prognosis is guarded. Time with Patient: Less than 30
[2018-01-01 12:24] LABS: Glucose,Whole Blood 124 mg/dL (75-99)
--- NOTE | 2018-01-01 15:03 | P.PN ---
Subjective This a pleasant 87-year-old lady patient of Dr. Wilfrid Burris/ Dr Patterson. 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 She also has neck pain, polyarthritis, no pleurisy, slight cough , no new motor or neurologic deficits except weakness, She tried using her nebulizer treatments which is normally once a week now has used 3 times per day with no relief. She was seen in emergency room with septic-like picture with left shift and mild leukocytosis, without any source of infection. Chest x-ray failed to reveal an acute infiltrate however there is a radiodense ingested material noted on chest x-ray, urinalysis is normal. She comes in with A. fib with RVR, heart rate in the 110s She is evaluated in the emergency room showing an EKG in A. fib with rapid ventricular rate heart rate in the 120s at the time of admission. There is no ST segment elevation or depression. She was last seen by Dr. Dr. Patterson cardiology 4 weeks ago and was transitioned to eliquia from coumadin and she has chronic low back pain low back pain with numbness below the knee suspicious of L5 S1 radiculopathy, also has a headache for several years now mainly left side without any neurologic complaints she has dizziness and blurred vision for over 1 year and she also has insomnia, constipation and increasing weakness no recent falls at home intermittently she requires a cane for ambulation 12/28: Patient still has some cough and conversational dyspnea, shortness of breath long standing, nasal congestion, patient remains to be febrile, family is at bedside, we've started an IV Solu-Medrol secondary to the wheezing noted on examination also IV Lasix, she does have history of asthma, CT high resolution is obtained for pulmonary fibrosis, patient has pulmonary hypertension severe, she is on CPAP machine for which she is now compliant, still with epigastric discomfort, no melena and hematemesis . Consult with Dr. Pérez pulmonary medicine. Eliquis still on hold for an occipital nerve block to be done by Dr. Soliz in the next 24-48 hours . 12/29: Patient has been seen by Dr. Conde with recommendations to continue Rocephin and azithromycin. Patient is followed by cardiology. Continue IV Lasix at 40 mg daily and metoprolol 50 mg daily. Patient continues to have headache and this to be scheduled for occipital nerve block with Dr. Matson. Eliquis remains on hold for this. Daughter also brings up the patient had a recent right upper tooth infection which seems to be cleared at this time. Chlorhexidine was added. Consult with Dr. Pérez has been added. Patient was started on BiPAP for continued shortness of breath. 12/30: Patient has not had occipital nerve block and this will be canceled. Eliquis will be started. Voltaren gel added for pain control to the neck and occipital area and Mobic discontinued. PT and OT added and increased activity. Blood sugars are running in the 200s and metformin dosing increased to twice daily while on prednisone. White count is 11.1. CO2 is 40, BUN 23 and creatinine 0.5. Patient did use BiPAP during the night. Dr. Pérez is following with thought that this is more CHF than pneumonia. Patient was started on IV Lasix yesterday. Throat culture for strep was negative, urine culture 10-49,000 colonies genital malina, blood culture no growth after 120 hours. Anticipate discharge on Tuesday. 12/31 patient complains of significant generalized weakness today. Labs suggestive of creatinine 0.7, bicarb 44 concerning for chronic retention of CO2. Patient is on 3 L of oxygen and was not requiring any oxygen at home. IV Lasix changed to oral Lasix. Chest x-ray ordered as patient requiring increased oxygen 01/01 patient continues to complain of significant pain in the right shoulder and neck with generalized weakness. patient has metabolic alkalosis from diuretic. IV Lasix switched to oral Lasix yesterday and will discuss with cardiology if the and does for Lasix need to be reduced for the since patient's shortness of breath is improved. No labs to compare since yesterday. Patient continues require 3 L of oxygen. Pending physical therapy evaluation. Patient would likely benefit from rehab Objective - Vital Signs Vital signs: Vital Signs Temp 96.5 F L 01/01/18 08:00 Pulse 76 01/01/18 12:13 Resp 18 01/01/18 08:00 BP 133/77 01/01/18 08:00 Pulse Ox 97 01/01/18 08:08 Intake & Output 12/31/17 01/01/18 01/01/18 18:59 06:59 18:59 Intake Total 960 Balance 960 Weight 91.2 kg Intake: Oral 960 Other: Voiding Method Bedside Commode Toilet Toilet Diaper Diaper # Voids 2 1 - Exam - Constitutional General appearance: cooperative, mild acute distress, obese - EENT Eyes: anicteric sclerae, PERRLA, normal appearance ENT: hearing grossly normal - Neck Neck: no lymphadenopathy, normal ROM, no other, no rigidity, no stridor, no thyromegaly - Respiratory Respiratory: bilateral decreased air entry at the bases with crackles - Cardiovascular Rhythm: regular Heart sounds: normal: S1, S2 Abnormal Heart Sounds: no systolic murmur, no diastolic murmur, no rub, no S3 Gallop, no S4 Gallop, no click, no other - Gastrointestinal General gastrointestinal: normal bowel sounds, soft, nontender - Integumentary Integumentary: no rash - Neurologic Neurologic: CNII-XII intact, generalized weakness 4/5 bilaterally Sensation intact normal reflexes - Musculoskeletal Musculoskeletal: strength equal bilaterally - Psychiatric Psychiatric: A&O x's 3, appropriate affect - Labs CBC & Chem 7: 12/31/17 06:05 12/31/17 06:05 Labs: Abnormal Lab Results - Last 24 Hours (Table) 12/31/17 12/31/17 01/01/18 Range/Units 16:46 21:14 05:42 POC Glucose (mg/dL) 239 H 238 H 199 H (75-99) mg/dL 01/01/18 Range/Units 12:09 POC Glucose (mg/dL) 124 H (75-99) mg/dL Assessment and Plan Plan: 1. Acute exacerbation shortness of breath chronic dyspnea possibly related to of atrial fibrillation with rapid ventricular rate, right pleural effusion, right-sided pneumonia, acute diastolic heart failure with severe pulmonary hypertension. On 3 L oxygen. Consult with cardiology and pulmonary medicine is appreciated. Continue DuoNeb treatments 4 times daily, a Zithromax and, ceftriaxone, Cardizem 30 mg 3 times daily, Lasix currently at 40 mg po, prednisone [address] mg [address] Consult with [address] Conde is appreciated. 2. Leukocytosis, sepsis secondary to pneumonia, calcitonin level normal IV antibiotics, no source in the urine recent dental abscess with dental extraction appears to be cleared. 3. Chronic anticoagulation with eliquis no side effects or complications at this time maintain dosing no changes made, cautioned on the use ibuprofen specially with chronic anticoagulation. 4. 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 Polyarthritis, Neuralgia right lower extremity with severe peripheral neuropathy. Underlying spinal stenosis cannot be ruled patient will be started on gabapentin 100 mg 3 times a day which would be titrated to symptom control 6. Possible underlying history of asthma active airway or COPD but has not been formally diagnosed and will need further workup as an outpatient. Symptoms may be due to heart failure only. Patient has appointment with Dr. Aviles as an outpatient and was scheduled by Dr. Wilfrid Burris. 7. Right pleural effusion, Lasix IV. 8. Chronic pain syndrome for which she is on hydrocodone 9. Carotid artery stenosis with mild plaque no significant hemodynamic stenosis noted September 2015 10. Hyperlipidemia not on any statin prior to admission were based on her previous CVA statins, I recommended this will be discussed with the patient however this is assured that it was discontinued in the past secondary to statin intolerance 11. Headache chronic with plan for occipital nerve block with Dr. Chase Jones. Eliquis resumed, meloxicam discontinued, Voltaren gel added. 12. Chronic sleep dysfunction melatonin 10 mg tablet will be started 13. Overactive bladder chronic not on any medications 14. Diabetes mellitus type 2 with hemoglobin A1c of 6.5. Continue with NovoLog scale. Glucometer ordered. Metformin 850 mg increased from daily to twice daily due to hyperglycemia from steroids. 15. Radio dense ingested material noted on x-ray, this seems to be around non- distinct nonmetallic type material on the gastric region. Significance is unknown 16. Generalized debility likely secondary to over diuresis and hospitalization. Patient encouraged to ambulate. PTOT evaluation pending, patient would benefit from either subacute rehab or inpatient rehab. GI prophylaxis and DVT prophylaxis provided she is on chronic anticoagulation for her atrial fibrillation Discharge plan: PT OT evaluation pending likely rehab
[2018-01-01 16:50] LABS: Glucose,Whole Blood 244 mg/dL (75-99)
--- NOTE | 2018-01-01 17:50 | PN ---
PROGRESS NOTE DATE OF SERVICE: 01/01/2018. REASON FOR FOLLOWUP: Pneumonia. INTERVAL HISTORY: The patient is afebrile. She has been breathing more comfortably. Denies significant chest pain, minimal cough. No abdominal pain. No diarrhea. Main symptoms remains to be feeling weak and tired and no energy. EXAMINATION: Blood pressure is 133/77 with a pulse of 73, temp 96.5. She is 98% on 3 L nasal cannula. General description is an elderly female up in the chair, in no distress. RESPIRATORY SYSTEM: Unlabored breathing with decreased breath sounds at bases. No wheeze. HEART: S1, S2. Regular rate and rhythm. ABDOMEN: Soft, no tenderness. LABS: White count elevated 11.9. DIAGNOSTIC IMPRESSION AND PLAN: Patient admitted to the hospital with fever, source likely pneumonia possible community acquired with overall improvement on Rocephin Flomax. Flomax will be discontinued and she will need another 3-4 days of oral antibiotic to finish course of therapy. Continue supportive care. MMODL / IJN: [id number] /
[2018-01-01] MEDS: amLODIPine 5 MG TAB PO SCH (20:34)
[2018-01-01 21:10] LABS: Glucose,Whole Blood 241 mg/dL (75-99)
[2018-01-02] MEDS: cefTRIAXone IN SWFI 2,000 MG/20 ML SYRINGE IVP SCH (05:47)
[2018-01-02 06:16] LABS: Glucose,Whole Blood 92 mg/dL (75-99)
[2018-01-02 06:29] LABS: Basophils % (A) 0 %; Eosinophils # (A) 0.1 k/uL (0-0.7); Eosinophils % (A) 1 %; HCT 41.6 % (34.0-46.0); HGB 13.2 gm/dL (11.4-16.0); Lymphocytes # (A) 3.2 k/uL (1.0-4.8); Lymphocytes % (A) 27 %; MCH 27.8 pg (25.0-35.0); MCHC 31.9 g/dL (31.0-37.0); MCV 87.2 fL (80.0-100.0); Monocytes # (A) 0.6 k/uL (0-1.0); Monocytes % (A) 5 %; Neutrophils # (A) 7.8 k/uL (1.3-7.7); Neutrophils % (A) 66 %; Platelet Count 285 k/uL (150-450); RBC 4.77 m/uL (3.80-5.40); RDW 13.3 % (11.5-15.5); WBC 11.7 k/uL (3.8-10.6)
[2018-01-02] MEDS: INSULIN ASPART 100 UNIT/ML 1 ML 10 ML VIAL SQ SCH ×2 (06:31→12:30)
[2018-01-02] MEDS: PANTOPRAZOLE 40 MG TABLET PO SCH (06:34)
[2018-01-02] MEDS: metFORMIN 850 MG TAB PO SCH (06:34)
[2018-01-02 06:37] LABS: Albumin 3.3 g/dL (3.5-5.0); Calcium 8.9 mg/dL (8.4-10.2); Potassium 3.5 mmol/L (3.5-5.1); Total Bilirubin 0.3 mg/dL (0.2-1.3); Total Protein 5.7 g/dL (6.3-8.2)
[2018-01-02 08:28] VITALS: RESP 18
[2018-01-02] MEDS: APIXABAN 2.5 MG TABLET PO SCH (08:51)
[2018-01-02] MEDS: DICLOFENAC SODIUM GEL 100 GM TUBE TOPICAL SCH ×2 (08:51→12:30)
[2018-01-02] MEDS: CHLORHEXIDINE GLUCONATE 15 ML CUP MUCOUS MEM SCH (08:51)
[2018-01-02] MEDS: DILTIAZEM ORAL 30 MG TAB PO SCH (08:53)
[2018-01-02] MEDS: FLUTICASONE 50MCG/SPRAY NASAL 16GM EA NOSTRIL SCH (08:53)
[2018-01-02] MEDS: GABAPENTIN 100 MG CAP PO SCH (08:54)
[2018-01-02] MEDS: FUROSEMIDE 40 MG TAB PO SCH (08:54)
[2018-01-02] MEDS: SERTRALINE 25 MG TAB PO SCH (08:54)
[2018-01-02] MEDS: predniSONE 20 MG TAB PO SCH (08:55)
[2018-01-02] MEDS: LOSARTAN-HCTZ 50-12.5 MG 1 EACH TAB PO SCH (08:55)
[2018-01-02] MEDS: METOPROLOL SUCCINATE (ER) 50 MG TAB.ER.24H PO SCH (08:55)
[2018-01-02] MEDS: BUDESONIDE 0.5 MG/2 ML NEBU INHALATION SCH (09:21)
[2018-01-02] MEDS: IPRATROPIUM-ALBUTEROL 3 ML NEB INHALATION SCH ×2 (09:21→13:31)
[2018-01-02] MEDS: LIDOCAINE 5% PATCH TOPICAL SCH (10:18)
--- NOTE | 2018-01-02 10:54 | P.PN ---
Subjective Progress Note Date: 01/02/18 THis is a pleasant 87-year-old female with chronic multiple and complex medical problems including hypertension, chronic atrial fibrillation, on ELiquis, diabetes. She presented to the hospital with complaints of shortness of breath and left-sided headache and facial pain. On initial presentation, she had mild fever and elevated lactic acid level. FOcus of infection is undetermined at this time. EKG showed atrial fibrillation with RVR with nonspecific ST-T waves abnormalities. Heart rate is currently better controlled but patient continues to complain of shortness of breath. She did sleep well through the night last night, using her CPAP. She has known LV systolic function of 45%. BNP is not elevated at 997. SHe has history of cath showing normal coronaries and subsequent negative stress testing. Blood pressure this morning 138/76 with a heart rate in the 90 range, 98% on 5 L of oxygen. White blood cell count 7.0, hemoglobin 12.7, platelet count 280. Sodium 143, potassium 3.5, BUN 14, creatinine 0.5. The repeat BNP level was performed which came back to be 2089. She did have a CAT scan of the chest performed which revealed cardiomegaly, right pleural effusion and associated atelectasis, correlate for possible pneumonia. Indeterminant liver lesions. Patient is currently on Lasix 40 mg IV daily. 12/30/2017 Patient was seen and examined this morning, overall her breathing is improving. She has not yet been out of the bed, physical therapy consultation has been requested for today. She continues to be on 40 mg of IV Lasix daily as well as antibiotics for pneumonia. Blood pressure 144/70 with a heart rate in the 80s, 96% on 3 L of oxygen. White blood cell count 11.1, hemoglobin 13.2, platelet count 232. Sodium 140, potassium 3.5, BUN 23, creatinine 0.5. 12/31/2017 Patient seen and examined this morning, breathing is improving overall, she just complains of feeling extremely weak. Blood pressure 128/70 with a heart rate in the 70s, 98% on 3 L of oxygen. White blood cell count 11.9, hemoglobin 13.0, platelet count 298. Sodium 142, potassium 3.4, BUN 30, creatinine 0.7. 01/02/2018 Patient examined this morning, sitting up in the chair at bedside, still complaining of feeling weak however breathing is stable. Arrangements are being made for her to be transferred to rehab. Blood pressure 112/60 with a heart rate in the 70s, 94% on room air. White blood cell count 11.7, hemoglobin 13.2, platelet count 285. Sodium 142, potassium 3.5, BUN 26, creatinine 0.7. Objective - Vital Signs Vital signs: Vital Signs Temp 97.0 F L 01/02/18 08:00 Pulse 76 01/02/18 09:22 Resp 18 01/02/18 08:00 BP 112/68 01/02/18 08:00 Pulse Ox 94 L 01/02/18 08:00 Intake & Output 01/01/18 01/02/18 01/02/18 18:59 06:59 18:59 Intake Total 460 100 240 Output Total 300 Balance 160 100 240 Weight 79 kg Intake: Oral 460 100 240 Output: Urine 300 Other: Voiding Method Toilet Toilet Toilet Diaper Diaper Diaper # Voids 1 - Exam PHYSICAL EXAMINATION: GENERAL: 87-year-old female in no acute distress at the time of my examination HEENT: Head is atraumatic, normocephalic. Pupils equal, round. Sclera anicteric. Conjunctiva are clear. Mucous membranes of the mouth are moist. Neck is supple. There is no elevated jugular venous pressure.] bruit is heard. HEART EXAMINATION: Heart S1, S2 normal. No murmur or gallop heard. CHEST EXAMINATION: Lungs reveal improvement in air entry bilaterally ABDOMEN: Soft, nontender. Bowel sounds are heard. No organomegaly noted. EXTREMITIES: 2+ peripheral pulses with no evidence of peripheral edema and no calf tenderness noted. NEUROLOGIC patient is awake, alert and oriented ?-3. . - Labs CBC & Chem 7: 01/02/18 06:10 01/02/18 06:10 Labs: Abnormal Lab Results - Last 24 Hours (Table) 01/01/18 01/01/18 01/01/18 Range/Units 12:09 16:34 20:57 WBC (3.8-10.6) k/uL Neutrophils # (1.3-7.7) k/uL Chloride (98-107) mmol/L Carbon Dioxide (22-30) mmol/L BUN (7-17) mg/dL POC Glucose (mg/dL) 124 H 244 H 241 H (75-99) mg/dL Total Protein (6.3-8.2) g/dL Albumin (3.5-5.0) g/dL 01/02/18 01/02/18 Range/Units 06:10 06:10 WBC 11.7 H (3.8-10.6) k/uL Neutrophils # 7.8 H (1.3-7.7) k/uL Chloride 91 L (98-107) mmol/L Carbon Dioxide 41 H* (22-30) mmol/L BUN 26 H (7-17) mg/dL POC Glucose (mg/dL) (75-99) mg/dL Total Protein 5.7 L (6.3-8.2) g/dL Albumin 3.3 L (3.5-5.0) g/dL Assessment and Plan Plan: Assessment #1 shortness of breath which is likely related to multiple reasons including a component of heart failure, diastolic acute on chronic, as well as component of severe pulmonary hypertension and pneumonia #2 mild nonischemic cardiomyopathy #3 chronic atrial fibrillation was controlled heart rate #4 morbid obesity #5 obstructive sleep apnea Plan From cardiology's perspective, we will continue the patient on current medications. We will make a follow-up appointment to see Dr. Patterson in the office post discharge. DNP note has been reviewed, I agree with a documented findings and plan of care. Patient was seen and examined.
[2018-01-02 12:09] LABS: Glucose,Whole Blood 137 mg/dL (75-99)
--- NOTE | 2018-01-02 12:28 | P.DS ---
Providers Date of admission: 12/25/17 07:53 Expected date of discharge: 01/02/18 Attending physician: Rena Pepper Consults: 12/25/17 07:53 Consult Physician Stat Consulting Provider: Garland Patterson Consult Reason/Comments: Chest pain Do you want consulting provider notified?: Yes 12/26/17 09:14 Consult Physician Routine Consulting Provider: Dayana Patterson Consult Reason/Comments: abd. pain/radiodensity on xray Do you want consulting provider notified?: Yes 12/26/17 09:16 Consult Physician Routine Consulting Provider: Loki Matson Consult Reason/Comments: occipital neuralgia/chronic right sciatica Do you want consulting provider notified?: Yes 12/26/17 10:24 Consult Physician ONCE Consulting Provider: Wilton Conde Consult Reason/Comments: fever/headache Do you want consulting provider notified?: Yes 12/28/17 10:22 Consult Physician Routine Consulting Provider: Kevin Pérez Consult Reason/Comments: severe pulmonary hypertension, dyspnea Do you want consulting provider notified?: Yes [facility] Course: This a pleasant 87-year-old lady patient of Dr. Wilfrid Burris/ Dr Patterson. 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 She also has neck pain, polyarthritis, no pleurisy, slight cough , no new motor or neurologic deficits except weakness, She tried using her nebulizer treatments which is normally once a week now has used 3 times per day with no relief. She was seen in emergency room with septic-like picture with left shift and mild leukocytosis, without any source of infection. Chest x-ray failed to reveal an acute infiltrate however there is a radiodense ingested material noted on chest x-ray, urinalysis is normal. She comes in with A. fib with RVR, heart rate in the 110s She is evaluated in the emergency room showing an EKG in A. fib with rapid ventricular rate heart rate in the 120s at the time of admission. There is no ST segment elevation or depression. She was last seen by Dr. Dr. Patterson cardiology 4 weeks ago and was transitioned to eliquia from coumadin and she has chronic low back pain low back pain with numbness below the knee suspicious of L5 S1 radiculopathy, also has a headache for several years now mainly left side without any neurologic complaints she has dizziness and blurred vision for over 1 year and she also has insomnia, constipation and increasing weakness no recent falls at home intermittently she requires a cane for ambulation 12/28: Patient still has some cough and conversational dyspnea, shortness of breath long standing, nasal congestion, patient remains to be febrile, family is at bedside, we've started an IV Solu-Medrol secondary to the wheezing noted on examination also IV Lasix, she does have history of asthma, CT high resolution is obtained for pulmonary fibrosis, patient has pulmonary hypertension severe, she is on CPAP machine for which she is now compliant, still with epigastric discomfort, no melena and hematemesis . Consult with Dr. Pérez pulmonary medicine. Eliquis still on hold for an occipital nerve block to be done by Dr. Soliz in the next 24-48 hours . 12/29: Patient has been seen by Dr. Conde with recommendations to continue Rocephin and azithromycin. Patient is followed by cardiology. Continue IV Lasix at 40 mg daily and metoprolol 50 mg daily. Patient continues to have headache and this to be scheduled for occipital nerve block with Dr. Matson. Eliquis remains on hold for this. Daughter also brings up the patient had a recent right upper tooth infection which seems to be cleared at this time. Chlorhexidine was added. Consult with Dr. Pérez has been added. Patient was started on BiPAP for continued shortness of breath. 12/30: Patient has not had occipital nerve block and this will be canceled. Eliquis will be started. Voltaren gel added for pain control to the neck and occipital area and Mobic discontinued. PT and OT added and increased activity. Blood sugars are running in the 200s and metformin dosing increased to twice daily while on prednisone. White count is 11.1. CO2 is 40, BUN 23 and creatinine 0.5. Patient did use BiPAP during the night. Dr. Pérez is following with thought that this is more CHF than pneumonia. Patient was started on IV Lasix yesterday. Throat culture for strep was negative, urine culture 10-49,000 colonies genital malina, blood culture no growth after 120 hours. Anticipate discharge on Tuesday. 12/31 patient complains of significant generalized weakness today. Labs suggestive of creatinine 0.7, bicarb 44 concerning for chronic retention of CO2. Patient is on 3 L of oxygen and was not requiring any oxygen at home. IV Lasix changed to oral Lasix. Chest x-ray ordered as patient requiring increased oxygen 01/01 patient continues to complain of significant pain in the right shoulder and neck with generalized weakness. patient has metabolic alkalosis from diuretic. IV Lasix switched to oral Lasix yesterday and will discuss with cardiology if the and does for Lasix need to be reduced for the since patient's shortness of breath is improved. No labs to compare since yesterday. Patient continues require 3 L of oxygen. Pending physical therapy evaluation. Patient would likely benefit from rehab 01/02: Pulse ox with ambulation dropped down to 87%. Patient will need to continue oxygen therapy at 2 L nasal cannula [id number] until this improves. Breathing status is otherwise stable. Patient is complaining of right ear discomfort for which Debrox otic solution added. Dr. Conde has recommended 3 more days of oral antibiotic. Cardiology plans to continue current medication and stable for discharge. Follow-up with Dr. Patterson. Pulmonary medicine has cleared the patient for discharge. Patient will be discharged to [facility] today in stable condition. Discharge diagnoses: 1. Acute exacerbation shortness of breath chronic dyspnea possibly related to of atrial fibrillation with rapid ventricular rate, right pleural effusion, right-sided pneumonia, acute diastolic heart failure with severe pulmonary hypertension. 2. Leukocytosis due to sepsis secondary to pneumonia 3. Chronic anticoagulation with eliquis 4. 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 Polyarthritis, Neuralgia right lower extremity with severe peripheral neuropathy. Underlying spinal stenosis cannot be ruled out 6. Possible underlying history of asthma active airway or COPD but has not been formally diagnosed and will need further workup as an outpatient. 7. Right pleural effusion 8. Chronic pain syndrome 9. Carotid artery stenosis with mild plaque no significant hemodynamic stenosis noted September 2015 10. Hyperlipidemia discontinued in the past secondary to statin intolerance 11. Headache chronic with plan for occipital nerve block with Dr. Chase Jones. 12. Chronic sleep dysfunction 13. Overactive bladder chronic 14. Diabetes mellitus type 2 with hemoglobin A1c of 6.5. 15. Radio dense ingested material noted on x-ray, this seems to be around non- distinct nonmetallic type material on the gastric region. 16. Generalized debility likely secondary to over diuresis and hospitalization. [facility] Imp[facility] and plan of care have been directed as dictated by the signing physician. Nikki Lauren nurse practitioner acting as scribe for signing physician. Patient Condition at Discharge: Good Plan - Discharge Summary Discharge Rx Participant: No New Discharge Prescriptions: New Acetaminophen Tab [Tylenol] 650 mg PO Q6HR PRN tab PRN Reason: Mild Pain Or Fever > 100.5 amLODIPine [Norvasc] 5 mg PO HS tab Budesonide [Pulmicort] 0.5 mg INHALATION RT-BID nebu Chlorhexidine Gluconate [Peridex] 15 ml MUCOUS MEM BID solution Diclofenac Sodium Gel [Voltaren Gel] 2 gm TOPICAL QID tube Furosemide [Lasix] 40 mg PO DAILY tab Gabapentin [Neurontin] 200 mg PO TID cap Insulin Aspart [NovoLOG (formulary)] 0 unit SQ ACHS vial Ipratropium-Albuterol Nebulize [Duoneb 0.5 mg-3 mg/3 ml Soln] 3 ml INHALATION RT-QID ampul.neb Lidocaine 5% Patch [Lidoderm 5% Patch] 1 patch TOPICAL DAILY patch metFORMIN HCL [Glucophage] 850 mg PO BID-W/MEALS tab Metoprolol Succinate (ER) [Toprol XL] 50 mg PO DAILY tab.er.24h predniSONE 10 mg PO DAILY #30 tab Cephalexin [Keflex] 500 mg PO Q8HR #9 cap Carbamide Peroxide [Debrox Otic] 5 drops RIGHT EAR BID 7 Days #20 ml Continue Omeprazole [PriLOSEC] 20 mg PO BID Sertraline [Zoloft] 25 mg PO DAILY Apixaban [Eliquis] 2.5 mg PO BID Diltiazem Oral [Cardizem*] 30 mg PO TID Losartan/Hydrochlorothiazide [Hyzaar 100-25 Tablet] 1 tab PO DAILY Fluticasone Nasal [place] [Flonase Nasal [place]] 1 spray EA NOSTRIL DAILY HYDROcodone/APAP 7.5-325MG [[place] 7.5-325] 1 tab PO TID PRN #9 tab PRN Reason: Pain Discontinued metFORMIN HCL [Glucophage] 850 mg PO AC-SUPPER #30 tab Ibuprofen [Advil] 400 mg PO DAILY PRN PRN Reason: Pain Amoxicillin See Taper PO DAILY Discharge Medication List Omeprazole [PriLOSEC] 20 mg PO BID 06/02/15 [History] Sertraline [Zoloft] 25 mg PO DAILY 10/18/15 [History] Apixaban [Eliquis] 2.5 mg PO BID 02/14/16 [History] Diltiazem Oral [Cardizem*] 30 mg PO TID 09/02/16 [History] Losartan/Hydrochlorothiazide [Hyzaar 100-25 Tablet] 1 tab PO DAILY 09/02/16 [ History] Fluticasone Nasal [place] [Flonase Nasal [place]] 1 spray EA NOSTRIL DAILY 03/30/17 [History] Acetaminophen Tab [Tylenol] 650 mg PO Q6HR PRN tab 01/02/18 [Rx] Budesonide [Pulmicort] 0.5 mg INHALATION RT-BID nebu 01/02/18 [Rx] Carbamide Peroxide [Debrox Otic] 5 drops RIGHT EAR BID 7 Days #20 ml 01/02/18 [ Rx] Cephalexin [Keflex] 500 mg PO Q8HR #9 cap 01/02/18 [Rx] Chlorhexidine Gluconate [Peridex] 15 ml MUCOUS MEM BID solution 01/02/18 [Rx] Diclofenac Sodium Gel [Voltaren Gel] 2 gm TOPICAL QID tube 01/02/18 [Rx] Furosemide [Lasix] 40 mg PO DAILY tab 01/02/18 [Rx] Gabapentin [Neurontin] 200 mg PO TID cap 01/02/18 [Rx] HYDROcodone/APAP 7.5-325MG [[place] 7.5-325] 1 tab PO TID PRN #9 tab 01/02/18 [Rx] Insulin Aspart [NovoLOG (formulary)] 0 unit SQ ACHS vial 01/02/18 [Rx] Ipratropium-Albuterol Nebulize [Duoneb 0.5 mg-3 mg/3 ml Soln] 3 ml INHALATION RT -QID ampul.neb 01/02/18 [Rx] Lidocaine 5% Patch [Lidoderm 5% Patch] 1 patch TOPICAL DAILY patch 01/02/18 [Rx ] Metoprolol Succinate (ER) [Toprol XL] 50 mg PO DAILY tab.er.24h 01/02/18 [Rx] amLODIPine [Norvasc] 5 mg PO HS tab 01/02/18 [Rx] metFORMIN HCL [Glucophage] 850 mg PO BID-W/MEALS tab 01/02/18 [Rx] predniSONE 10 mg PO DAILY #30 tab 01/02/18 [Rx] Follow up Appointment(s)/Referral(s): Garland Patterson MD [STAFF PHYSICIAN] - 01/09/18 10:45 am Jose Alfredo Burris MD [Primary Care Provider] - 01/03/18 1:00 pm (after discharge from [facility]) Patient Instructions/Handouts: A-fib (Atrial Fibrillation) (DC), Sepsis (GEN) Activity/Diet/Wound Care/Special Instructions: Oxygen therapy 2 L nasal cannula [id number]. Diet: Consistent carb. Discharge Disposition: TRANSFER TO SNF/ECF
[2018-01-02] MEDS ORDERED: CARBAMIDE PEROXIDE 6.5% DROPS 15 ML BTL RIGHT EAR SCH (12:45)
--- NOTE | 2018-01-02 13:14 | P.PN ---
Subjective Progress Note Date: 01/02/18 Principal diagnosis: Shortness of breath, multifactorial, in part related to underlying heart failure and possible pneumonia. Weakness Progress note dated 12/31/2017 This is a 87-year-old patient who was admitted to the hospital on December 25. She initially came with neck and shoulder pain. Subsequent to that, she started complaining of shortness of breath. She was diagnosed as having both heart failure and pneumonia. She was seen yesterday by my nurse practitioner. Her respiratory status has improved. She remains on oxygen. She does feel very weak. She likely will be discharged to some soda rehab facility and/or senior care. She has a history of acute hypoxemic respiratory failure secondary to heart failure and possible pneumonia, chronic atrial fibrillation possible COPD , obesity, heart failure, GERD, hyperlipidemia, hypertension, DJD, sleep apnea syndrome and morbid obesity. The patient continues wear oxygen. Does not appear to be any worse and she was a day before or the day before that. Progress note dated 01/01/2018 87-year-old female admitted on December 25. She came in with neck and shoulder pain. In addition, she developed shortness of breath. She was diagnosed as having both CHF and pneumonia. The patient's respiratory status has improved. Her primary problem is weakness. With any activity, she becomes very short of breath. The patient will likely be discharged to a rehab facility or senior care. I'm not sure that one has been decided upon as yet. She has a history of acute hypoxemic respiratory failure, heart failure, pneumonia, atrial fibrillation, possible COPD, obesity, GERD, hyperlipidemia, hypertension, DJD, sleep apnea syndrome and morbid obesity. The patient has shown steady improvement over the last couple of days. 01/02/2018 patient seen in follow-up on selective care unit. She is sitting up in the chair, in no acute distress. Still complains of exertional dyspnea, lung sounds are positive for a few scattered expiratory rhonchi, and a few scattered crackles. No wheezes were noted on today's exam. Room air pulse ox is 94%, patient is afebrile, denies any worsening dyspnea, chest congestion or sputum production. Denies any chest pain. Fever or chills, urine, urine and group A strep test are negative to date. Patient was treated with empiric antibiotics form of Rocephin, IV steroids switched to oral prednisone, and oral Lasix. Her latest chest x-ray from 12/31/2017 has been reviewed by Dr. Aguayo , and showed appearance of improving congestive heart failure. She has been wearing her CPAP at night, settings were reviewed by Dr. Aguayo, and she is on a CPAP with a pressure of 13 cm of water. She remains in atrial fibrillation , with controlled rate, she is on Eliquis for anticoagulation. Remains stable, improving, and discharge home is anticipated today. Objective - Vital Signs Vital signs: Vital Signs Temp 97.0 F L 01/02/18 08:00 Pulse 76 01/02/18 09:22 Resp 18 01/02/18 08:00 BP 112/68 01/02/18 08:00 Pulse Ox 94 L 01/02/18 08:00 Intake & Output 01/01/18 01/02/18 01/02/18 18:59 06:59 18:59 Intake Total 460 100 240 Output Total 300 Balance 160 100 240 Weight 79 kg Intake: Oral 460 100 240 Output: Urine 300 Other: Voiding Method Toilet Toilet Toilet Diaper Diaper Diaper # Voids 1 - Exam No acute distress, oriented 3. Currently wearing O2. HEENT examination is grossly unremarkable. Mucous membranes are moist. No oral lesions. Neck supple. Full range of motion. No adenopathy thyromegaly or neck vein distention. Cardiovascular examination reveals irregular rhythm and rate. S1-S2 normal. No S3 or S4. No discernible murmur noted. Heart sounds are distant. Lungs reveal a few scattered rhonchi, and rails, but no wheezes.. Abdomen soft bowel sounds are heard. No masses or tenderness. Extremities are intact. No cyanosis clubbing or edema. Skin is without rash or lesion. Neurologic examination is brief but nonfocal. - Labs CBC & Chem 7: 01/02/18 06:10 01/02/18 06:10 Labs: Abnormal Lab Results - Last 24 Hours (Table) 01/01/18 01/01/18 01/02/18 Range/Units 16:34 20:57 06:10 WBC 11.7 H (3.8-10.6) k/uL Neutrophils # 7.8 H (1.3-7.7) k/uL Chloride (98-107) mmol/L Carbon Dioxide (22-30) mmol/L BUN (7-17) mg/dL POC Glucose (mg/dL) 244 H 241 H (75-99) mg/dL Total Protein (6.3-8.2) g/dL Albumin (3.5-5.0) g/dL 01/02/18 01/02/18 Range/Units 06:10 11:45 WBC (3.8-10.6) k/uL Neutrophils # (1.3-7.7) k/uL Chloride 91 L (98-107) mmol/L Carbon Dioxide 41 H* (22-30) mmol/L BUN 26 H (7-17) mg/dL POC Glucose (mg/dL) 137 H (75-99) mg/dL Total Protein 5.7 L (6.3-8.2) g/dL Albumin 3.3 L (3.5-5.0) g/dL Assessment and Plan Plan: Assessment: Shortness of breath, likely multifactorial in part related to underlying heart failure as well as possible pneumonia. History of chronic atrial fibrillation Possible but unlikely COPD Obesity CHF by history Gastroesophageal reflux disease Hyperlipidemia Hypertension DJD Sleep apnea syndrome, currently maintained on BiPAP therapy Plan: Patient is stable, and continues to improve, no worsening dyspnea, no fever or chills, her breathing is easier. No worsening dyspnea, chest pain. Overall remains stable, in discharge home is anticipated today. I performed a history & physical examination of the patient and discussed their management with my nurse practitioner, Blaire Hernandez. I reviewed the nurse practitioner's note and agree with the documented findings and plan of care. Lung sounds are positive for a few scattered rhonchi and rales. The findings and the impression was discussed with the patient. I attest to the documentation by the nurse practitioner. Time with Patient: Less than 30
[2018-01-02 14:55] VITALS: BP 108/70; PULSE 84; TEMP 97.5
--- NOTE | 2018-01-02 17:09 | PN ---
PROGRESS NOTE DATE OF SERVICE: 01/02/2018. REASON FOR FOLLOWUP VISIT: Pneumonia. INTERVAL HISTORY: The patient was seen on rounds this morning. The patient overall has been feeling better. Breathing comfortably. She did have some mild cough. No chest pain. No abdominal pain. No diarrhea. PHYSICAL EXAMINATION: On admission, blood pressure 108/70 with a pulse of 84. Temperature 97.5. She is 93% on room air. General description is an elderly female up in the chair in no distress. RESPIRATORY SYSTEM: Unlabored breathing with decreased breath sounds at the bases. No wheeze. HEART: S1, S2. Regular rate and rhythm. ABDOMEN: Soft, no tenderness. LABS: White count 11.7 with BUN of 26, creatinine 0.75. Blood culture has been negative. Sputum was not provided. DIAGNOSTIC IMPRESSION AND PLAN: Patient admitted to the hospital with a fever, source likely pneumonia, community- acquired. The patient showed clinical improvement. She will finish therapy with oral Ceftin 500 mg twice a day for about 3 days. She received about 7 days of antibiotic. Continue supportive care. MMODL / IJN: [id number] /
[2018-02-17] MEDS ORDERED: metFORMIN 850 MG TAB PO SCH (17:30)
== END 2018-01-02 14:58 | DRG 871 ==
LOC: EC 03:32 → 6SEL 07:53 → UNDOADMIN 08:15 → 6SEL 08:15
PROVIDERS: ADMIT Family Medicine; ATTEND Family Medicine
DX: A41.9 Sepsis, unspecified organism (principal); I50.43 Acute on chronic combined systolic (congestive) and diastolic (congestive) heart failure; J18.9 Pneumonia, unspecified organism; J96.01 Acute respiratory failure with hypoxia; E87.3 Alkalosis; I42.9 Cardiomyopathy, unspecified; J44.0 Chronic obstructive pulmonary disease with (acute) lower respiratory infection; J98.11 Atelectasis; I69.351 Hemiplegia and hemiparesis following cerebral infarction affecting right dominant side; E03.9 Hypothyroidism, unspecified; E66.01 Morbid (severe) obesity due to excess calories; E78.5 Hyperlipidemia, unspecified; F32.9 Major depressive disorder, single episode, unspecified; F41.9 Anxiety disorder, unspecified; G47.33 Obstructive sleep apnea (adult) (pediatric); E11.42 Type 2 diabetes mellitus with diabetic polyneuropathy; G89.4 Chronic pain syndrome; I11.0 Hypertensive heart disease with heart failure; I27.20 Pulmonary hypertension, unspecified; I48.2 Chronic atrial fibrillation; J84.10 Pulmonary fibrosis, unspecified; K21.9 Gastro-esophageal reflux disease without esophagitis; K59.00 Constipation, unspecified; K76.9 Liver disease, unspecified; M13.0 Polyarthritis, unspecified; M48.00 Spinal stenosis, site unspecified; M54.41 Lumbago with sciatica, right side; M54.81 Occipital neuralgia; N32.81 Overactive bladder; T50.2X5A Adverse effect of carbonic-anhydrase inhibitors, benzothiadiazides and other diuretics, initial encounter; Z79.01 Long term (current) use of anticoagulants; Z79.84 Long term (current) use of oral hypoglycemic drugs; Z79.899 Other long term (current) drug therapy; Z82.49 Family history of ischemic heart disease and other diseases of the circulatory system; Z82.5 Family history of asthma and other chronic lower respiratory diseases; Z83.3 Family history of diabetes mellitus; Z85.72 Personal history of non-Hodgkin lymphomas; Z87.891 Personal history of nicotine dependence; Z90.710 Acquired absence of both cervix and uterus; Z96.659 Presence of unspecified artificial knee joint; Z79.891 Long term (current) use of opiate analgesic; Z79.51 Long term (current) use of inhaled steroids; Z98.42 Cataract extraction status, left eye; Z98.41 Cataract extraction status, right eye; Z96.1 Presence of intraocular lens; G47.8 Other sleep disorders; Z91.19 Patient's noncompliance with other medical treatment and regimen
CPT/HCPCS: 36415; 71046; 71250; 72050; 72141; 80048; 80053; 81001; 82308; 83036; 83605; 83880; 84145; 84484; 84550; 85025; 85610; 85730; 87040; 87081; 87086; 87430; 87502; 93005; 93306; 94640; 94660; 94760; 96361; 96374; 96375; 99285

== ENCOUNTER → 2018-03-01 | Outpatient (CLI) | payer MEDICARE, OTHER | END | disposition home or self-care (01) | LOC: RADECHMAIN 12:10 | PROVIDERS: ATTEND Internal Medicine | DX: Z53.9 Procedure and treatment not carried out, unspecified reason (principal) ==

== ENCOUNTER → 2018-03-17 | Outpatient (CLI) | payer MEDICARE, OTHER ==
[2018-03-17 11:11] VITALS: BP 115/77; PULSE 104; RESP 18
--- NOTE | 2018-03-18 17:43 | P.PAINCN ---
History of Present Illness - Reason for Consult Consult date: 03/17/18 - History of Present Illness This is a 87-year-old female with a chronic history of severe low back pain, started more 15 years ago , the adilson increased over the last 6 months ago, pain intensity increased, over time, she denies any initiating event pain associated with numbness and tingling sensation, and intensity of the pain increases with activity , she was treated with pain medication without any significant improvement, and she is currently on [place] 7.5/325 every 8 hours, Neurontin 200 mg 3 times a day, she denies any side effect of the medication she denies any motor or sensory deficit she denies any fever or night sweats, and no change in the bowel movement or urination Past Medical History Past Medical History: Atrial Fibrillation, Heart Failure, GERD/Reflux, Hyperlipidemia, Hypertension, Osteoarthritis (OA), Respiratory Disorder, Sleep Apnea/CPAP/BIPAP, Thyroid Disorder Additional Past Medical History / Comment(s): DDD WITH BACK PAIN, OCCASIONAL SWELLING IN FEET-DENIES ANY NOW., USES C-PAP MACHINE. , FEELS LIKE SHE HAS A LUMP IN HER THROAT. History of Any Multi-Drug Resistant Organisms: None Reported Past Surgical History: Cholecystectomy, Hysterectomy, Joint Replacement Additional Past Surgical History / Comment(s): EGD for gastric reflux. Excision of lipomas. bilateral cataracts, total knee. Past Anesthesia/Blood Transfusion Reactions: No Reported Reaction Smoking Status: Former smoker - Past Family History Brother(s) Family Medical History: Congestive Heart Failure (CHF), COPD, Coronary Artery Disease (CAD), Diabetes Mellitus Daughter(s) Additional Family Medical History / Comment(s): One from MVA Son(s) Family Medical History: Diabetes Mellitus, Hyperlipidemia, Hypertension Sister(s) Family Medical History: Cancer Mother Family Medical History: Dementia Father Family Medical History: COPD Additional Family Medical History / Comment(s): . Medications and Allergies Home Medications Medication Instructions Recorded Confirmed Type Omeprazole [PriLOSEC] 20 mg PO BID 06/02/15 03/17/18 History Sertraline [Zoloft] 25 mg PO DAILY 10/18/15 03/17/18 History Apixaban [Eliquis] 2.5 mg PO BID 02/14/16 03/17/18 History Diltiazem Oral [Cardizem*] 30 mg PO TID 09/02/16 03/17/18 History Losartan/Hydrochlorothiazide 1 tab PO DAILY 09/02/16 03/17/18 History [Hyzaar 100-25 Tablet] Fluticasone Nasal [place] [Flonase 1 spray EA NOSTRIL DAILY 03/30/17 03/17/18 History Nasal [place]] Budesonide [Pulmicort] 0.5 mg INHALATION RT-BID nebu 01/02/18 03/17/18 Rx Carbamide Peroxide [Debrox Otic] 5 drops RIGHT EAR BID 7 Days #20 ml 01/02/18 Rx Chlorhexidine Gluconate [Peridex] 15 ml MUCOUS MEM BID solution 01/02/18 Rx Diclofenac Sodium Gel [Voltaren 2 gm TOPICAL QID tube 01/02/18 03/17/18 Rx Gel] Furosemide [Lasix] 40 mg PO DAILY tab 01/02/18 03/17/18 Rx Gabapentin [Neurontin] 200 mg PO TID cap 01/02/18 03/17/18 Rx HYDROcodone/APAP 7.5-325MG [[place] 1 tab PO TID PRN #9 tab 01/02/18 03/17/18 Rx 7.5-325] Insulin Aspart [NovoLOG 0 unit SQ ACHS vial 01/02/18 03/17/18 Rx (formulary)] Ipratropium-Albuterol Nebulize 3 ml INHALATION RT-QID ampul.neb 01/02/18 Rx [Duoneb 0.5 mg-3 mg/3 ml Soln] Lidocaine 5% Patch [Lidoderm 5% 1 patch TOPICAL DAILY patch 01/02/18 03/17/18 Rx Patch] Metoprolol Succinate (ER) [Toprol 50 mg PO DAILY tab.er.24h 01/02/18 03/17/18 Rx XL] amLODIPine [Norvasc] 5 mg PO HS tab 01/02/18 03/17/18 Rx metFORMIN HCL [Glucophage] 850 mg PO BID-W/MEALS tab 01/02/18 03/17/18 Rx predniSONE 10 mg PO DAILY #30 tab 01/02/18 03/17/18 Rx Ibuprofen [Advil] 200 mg PO BID PRN 03/17/18 03/17/18 History Allergies Allergy/AdvReac Type Severity Reaction Status Date / Time aspirin AdvReac SEE Verified 03/17/18 10:50 COMMENTS Physical Exam Physical Examinations : 1-Constitutiona : Cooperative , not in acute distress . 2-HEENT : nech ; supple , no Lymphadenopathy , normal thyroid size . eyes : no ptosis , no icterus , no photophobia . ENT : normal of hearing , normal oropharynx , no Thrush . 3- Respiratory : Chest clear to auscultations Bilaterally , no wheezing , no Rhonchi . 4- Cardiovascular : irregular rate and rhythem , S1 , S2 , no S3 , no S4. 5- Gastrointestinal : abdomen soft no tenderness , bowel sounds , no organomegally . 6- Genitourinary : Defferred . 7- neurologic : Cranial nerve II to XII intact , no focal neurological deffecit . 8-psychatric : alert , oriented X 3 , appropriate affect , intact judgment and insight . 9-Lymphatic : no Lymphadenopathy . 10- musculoskeltal : Lumber spine moter stegnth lower extremities ,thigh and legs 4/5 Right side , 4/5 Left side deep tendon reflexes : normal Knee Jerk , normal ankle Jerk positive lumber facet Loading Test Range of motion of the lumbar spine Flexion 30 degrees, extension 10 degrees strait leg raising test , positive at 30 degree Fabere test positive RT and positive LT . Results Comments: MRI of the lumbar spine= L1-2 spondylosis with facet hypertrophy, L3 4/l4-5 foraminal stenosis and this degeneration and facet hypertrophy. L5-S1 foraminal stenosis Assessment and Plan Plan: Assessment and plan= chronic severe low back pain secondary to multifactorial causes, lumbar foraminal stenosis, lumbar degenerative disc disease And lumbar spondylosis with lumbar facet arthropathy, clinically most of the pain is coming from the facetogenic component, Patient will be scheduled to have diagnostic medial branch block L3 to S1 and benefits positive will do radiofrequency ablation of the medial branch lumbar area , patient would continue to get her prescription for her medication from her primary care. We will ask for approval to hold Wip[place] before the procedure Time with Patient: Less than 30 PQRS Measure Charge Sheet Measure #130: Documentation of Current Meds in Medical Chart: Patient's medications documented in chart Measure #226: Tobacco Use: Screen & Cessation Intervention: Pt not a tobacco user Measure #111: Pneumonia Vaccination: Pneumococcal vaccine administered or previously received Measure #47: Advance Care Plan: Advance care planning discussed & documented, pt chose/unable to give Measure #412: Opioid Treatment Agreement: No documentation of signed opioid treatment agreement Measure #408: Opioid Therapy Follow-up Evaluation: Patient had NO f/u eval minimum every 3 months during opioid therapy Measure #317: Preventitive Care & Scrn High Bld Press & F/U: Normal blood pressure, f/u not required Measure #128: Body Mass Index (BMI) Screening & Follow-up: BMI documented ABOVE normal parameters - f/u documented Measure #131: Pain Assessment & Follow-up: Pain positive & plan documented, Follow-up scheduled Measure #431: Unhealthy Alcohol Use Preventative Care & Scrn: Patient not identified as an unhealthy alcohol user PQRS Narrative: Smoking Status Former smoker Do You Want the Pneumonia Vaccine Up to Date Vaccine AT THIS TIME? Blood Pressure 115/77 Pain Intensity [Lower Back] 6 Scale Used Numeric (1 - 10) Hx Alcohol Use (MH) No Home Medications: Ambulatory Orders Omeprazole [PriLOSEC] 20 mg PO BID 06/02/15 Sertraline [Zoloft] 25 mg PO DAILY 10/18/15 Apixaban [Eliquis] 2.5 mg PO BID 02/14/16 Diltiazem Oral [Cardizem*] 30 mg PO TID 09/02/16 Losartan/Hydrochlorothiazide [Hyzaar 100-25 Tablet] 1 tab PO DAILY 09/02/16 Fluticasone Nasal [place] [Flonase Nasal [place]] 1 spray EA NOSTRIL DAILY 03/30/17 Budesonide [Pulmicort] 0.5 mg INHALATION RT-BID nebu 01/02/18 Carbamide Peroxide [Debrox Otic] 5 drops RIGHT EAR BID 7 Days #20 ml 01/02/18 Chlorhexidine Gluconate [Peridex] 15 ml MUCOUS MEM BID solution 01/02/18 Diclofenac Sodium Gel [Voltaren Gel] 2 gm TOPICAL QID tube 01/02/18 Furosemide [Lasix] 40 mg PO DAILY tab 01/02/18 Gabapentin [Neurontin] 200 mg PO TID cap 01/02/18 HYDROcodone/APAP 7.5-325MG [[place] 7.5-325] 1 tab PO TID PRN #9 tab 01/02/18 Insulin Aspart [NovoLOG (formulary)] 0 unit SQ ACHS vial 01/02/18 Ipratropium-Albuterol Nebulize [Duoneb 0.5 mg-3 mg/3 ml Soln] 3 ml INHALATION RT -QID ampul.neb 01/02/18 Lidocaine 5% Patch [Lidoderm 5% Patch] 1 patch TOPICAL DAILY patch 01/02/18 Metoprolol Succinate (ER) [Toprol XL] 50 mg PO DAILY tab.er.24h 01/02/18 amLODIPine [Norvasc] 5 mg PO HS tab 01/02/18 metFORMIN HCL [Glucophage] 850 mg PO BID-W/MEALS tab 01/02/18 predniSONE 10 mg PO DAILY #30 tab 01/02/18 Ibuprofen [Advil] 200 mg PO BID PRN 03/17/18
== END | disposition home or self-care (01) ==
LOC: PNWHC3 10:43
PROVIDERS: ATTEND Specialist
DX: G89.29 Other chronic pain (principal); M48.061 Spinal stenosis, lumbar region without neurogenic claudication; M51.36 Other intervertebral disc degeneration, lumbar region; M47.816 Spondylosis without myelopathy or radiculopathy, lumbar region; M46.96 Unspecified inflammatory spondylopathy, lumbar region; Z87.891 Personal history of nicotine dependence; Z79.899 Other long term (current) drug therapy; Z79.01 Long term (current) use of anticoagulants; Z79.84 Long term (current) use of oral hypoglycemic drugs; Z79.891 Long term (current) use of opiate analgesic; Z79.4 Long term (current) use of insulin; Z79.1 Long term (current) use of non-steroidal anti-inflammatories (NSAID)
CPT/HCPCS: 99211

== ENCOUNTER → 2018-04-25 | Outpatient (CLI) | payer MEDICARE, OTHER ==
--- NOTE | 2018-04-25 13:58 | XR ---
EXAMINATION TYPE: XR chest 2V DATE OF EXAM: 04/25/2018 COMPARISON: 12/31/2017 HISTORY: Chest pain TECHNIQUE: Frontal and lateral views of the chest are obtained. FINDINGS: There is no focal air space opacity, pleural effusion, or pneumothorax seen. The cardiac silhouette size is enlarged. The osseous structures are intact. Moderate multilevel degenerative ch anges of the thoracic spine are seen with slight wedge compression deformity of the upper to mid thor acic vertebrae unchanged from the prior. Cholecystectomy clips are noted in the right upper quadrant on the lateral view. Degenerative changes of the acromioclavicular joints and glenohumeral joints are seen with suspected calcific tendinitis the right rotator cuff. IMPRESSION: No acute cardiopulmonary process.
== END ==
LOC: RADXRMAIN 12:51
PROVIDERS: ATTEND Internal Medicine Sleep Medicine
DX: R07.89 Other chest pain (principal)
CPT/HCPCS: 71046

== ENCOUNTER 2018-07-18 17:02 | Inpatient (IN) | payer MEDICARE, OTHER ==
[2018-07-18] MEDS ORDERED: SODIUM CHLORIDE 0.9% 500 ML 500 ML IV STA (18:40)
[2018-07-18] MEDS ORDERED: DILTIAZEM DRIP BOLUS FROM BAG 1 MG SOLN IV ONE (18:43)
[2018-07-18] MEDS ORDERED: DILTIAZEM 5 MG/ML 5 ML VIAL IV ONE (19:00)
[2018-07-18 19:45] LABS: Basophils % (A) 0 %; Eosinophils # (A) 0.1 k/uL (0-0.7); Eosinophils % (A) 1 %; HCT 46.3 % (34.0-46.0); HGB 15.2 gm/dL (11.4-16.0); Lymphocytes # (A) 2.4 k/uL (1.0-4.8); Lymphocytes % (A) 24 %; MCH 29.2 pg (25.0-35.0); MCHC 32.8 g/dL (31.0-37.0); MCV 89.1 fL (80.0-100.0); Mean Platelet Volume 7.8; Monocytes # (A) 0.4 k/uL (0-1.0); Monocytes % (A) 4 %; Neutrophils # (A) 6.7 k/uL (1.3-7.7); Neutrophils % (A) 69 %; Platelet Count 235 k/uL (150-450); RDW 14.4 % (11.5-15.5); WBC 9.7 k/uL (3.8-10.6)
--- NOTE | 2018-07-18 20:05 | ED ---
General Adult HPI - General Source: patient, RN notes reviewed Mode of arrival: wheelchair Limitations: no limitations <Hector Garza - Last Filed: 07/18/18 20:45> <Jens Boateng - Last Filed: 07/18/18 21:13> - General Chief complaint: Recheck/Abnormal Lab/Rx Stated complaint: Chest pain Time Seen by Provider: 07/18/18 17:41 - History of Present Illness Initial comments: 87-year-old female with a past medical history of atrial fibrillation, heart failure, hyperlipidemia, hypertension presents to the emergency department for a chief complaint of abnormal EKG. Patient saw her primary care provider for chronic back pain earlier today and they did an EKG stating he was abnormal and to come to the emergency department. Patient denies any chest pain. Patient denies any new shortness of breath. Patient states she feels her normal self and has no symptoms. Patient states she has a history of atrial fibrillation and is usually an A. fib. Patient has no other complaints at this time including shortness of breath, chest pain, abdominal pain, nausea or vomiting, headache, or visual changes. (Hector Garza) - Related Data Home Medications Medication Instructions Recorded Confirmed RX: Omeprazole [PriLOSEC] 20 mg PO DAILY 06/02/15 07/18/18 RX: Sertraline [Zoloft] 25 mg PO DAILY 10/18/15 07/18/18 RX: Apixaban [Eliquis] 2.5 mg PO BID 02/14/16 07/18/18 RX: Diltiazem Oral [Cardizem*] 30 mg PO TID 09/02/16 07/18/18 RX: Losartan/Hydrochlorothiazide 1 tab PO DAILY 09/02/16 07/18/18 [Hyzaar 100-25 Tablet] Previous Rx's Medication Instructions Recorded RX: HYDROcodone/APAP 7.5-325MG 1 tab PO TID PRN #9 tab 01/02/18 [[place] 7.5-325] Allergies Allergy/AdvReac Type Severity Reaction Status Date / Time aspirin AdvReac SEE Verified 07/18/18 18:01 COMMENTS Review of Systems ROS Other: All systems not noted in ROS Statement are negative. <Hector Garza - Last Filed: 07/18/18 20:45> ROS Other: All systems not noted in ROS Statement are negative. <[email or web address] B - Last Filed: 07/18/18 21:13> ROS Statement: Those systems with pertinent positive or pertinent negative responses have been documented in the HPI. Past Medical History Past Medical History: Atrial Fibrillation, Heart Failure, GERD/Reflux, Hyperlipidemia, Hypertension, Osteoarthritis (OA), Respiratory Disorder, Sleep Apnea/CPAP/BIPAP, Thyroid Disorder Additional Past Medical History / Comment(s): DDD WITH BACK PAIN, OCCASIONAL SWELLING IN FEET-DENIES ANY NOW., USES C-PAP MACHINE. , FEELS LIKE SHE HAS A LUMP IN HER THROAT. History of Any Multi-Drug Resistant Organisms: None Reported Past Surgical History: Cholecystectomy, Hysterectomy, Joint Replacement Additional Past Surgical History / Comment(s): EGD for gastric reflux. Excision of lipomas. bilateral cataracts, total knee. Past Anesthesia/Blood Transfusion Reactions: No Reported Reaction Past Psychological History: Anxiety, Depression Smoking Status: Former smoker - Past Family History Brother(s) Family Medical History: Congestive Heart Failure (CHF), COPD, Coronary Artery Disease (CAD), Diabetes Mellitus Daughter(s) Additional Family Medical History / Comment(s): One from MVA Son(s) Family Medical History: Diabetes Mellitus, Hyperlipidemia, Hypertension Sister(s) Family Medical History: Cancer Mother Family Medical History: Dementia Father Family Medical History: COPD Additional Family Medical History / Comment(s): . <Hector Garza P - Last Filed: 07/18/18 20:45> General Exam Limitations: no limitations General appearance: alert, in no apparent distress Head exam: Present: atraumatic, normocephalic, normal inspection Eye exam: Present: normal appearance, PERRL, EOMI. Absent: scleral icterus, conjunctival injection, periorbital swelling ENT exam: Present: normal exam, mucous membranes moist Neck exam: Present: normal inspection, full ROM. Absent: tenderness, meningismus, lymphadenopathy Respiratory exam: Present: normal lung sounds bilaterally. Absent: respiratory distress, wheezes, rales, rhonchi, stridor Cardiovascular Exam: Present: regular rate, normal rhythm, normal heart sounds. Absent: systolic murmur, diastolic murmur, rubs, gallop, clicks GI/Abdominal exam: Present: soft, normal bowel sounds. Absent: distended, tenderness, guarding, rebound, rigid Neurological exam: Present: alert, oriented X3, CN II-XII intact Psychiatric exam: Present: normal affect, normal mood <Hector Garza P - Last Filed: 07/18/18 20:45> General appearance: alert, in no apparent distress, anxious Head exam: Present: atraumatic, normocephalic, normal inspection Eye exam: Present: normal appearance, PERRL, EOMI. Absent: scleral icterus, conjunctival injection, periorbital swelling ENT exam: Present: normal exam, mucous membranes moist Neck exam: Present: normal inspection. Absent: tenderness, meningismus, lymphadenopathy Respiratory exam: Present: normal lung sounds bilaterally. Absent: respiratory distress, wheezes, rales, rhonchi, stridor Cardiovascular Exam: Present: tachycardia, irregular rhythm, normal heart sounds. Absent: systolic murmur, diastolic murmur, rubs, gallop, clicks GI/Abdominal exam: Present: soft, normal bowel sounds. Absent: distended, tenderness, guarding, rebound, rigid Extremities exam: Present: normal inspection, full ROM, normal capillary refill. Absent: tenderness, pedal edema, joint swelling, calf tenderness Back exam: Present: normal inspection Neurological exam: Present: alert, oriented X3, CN II-XII intact Psychiatric exam: Present: normal affect, normal mood Skin exam: Present: warm, dry, intact, normal color. Absent: rash <Jens Boateng B - Last Filed: 07/18/18 21:13> Course <Hector Garza P - Last Filed: 07/18/18 20:45> <Jens Boateng B - Last Filed: 07/18/18 21:13> Vital Signs 07/18/18 07/18/18 07/18/18 17:04 19:08 19:27 Temperature 97.9 F Pulse Rate 100 102 H 96 Respiratory 18 18 20 Rate Blood Pressure 146/87 126/92 129/82 O2 Sat by Pulse 93 L 94 L 98 Oximetry 07/18/18 20:25 Temperature Pulse Rate 89 Respiratory 18 Rate Blood Pressure 145/103 O2 Sat by Pulse 93 L Oximetry - Reevaluation(s) Reevaluation #1: 07/18/18 21:12 Symptoms are improving and rate control (Jens Boateng) EKG Findings - EKG Comments: EKG Findings:: 18:28 EKG shows atrial fibrillation with a ventricular rate of 116, QRS duration 72, QTc 455. 2024 EKG shows atrial fibrillation with a ventricular rate of 90, QTc 450, QRS 74, no evidence of ST elevation or depression <Hector Garza - Last Filed: 07/18/18 20:45> Medical Decision Making - Lab Data Result diagrams: 07/18/18 19:00 07/18/18 19:00 <Hector Garza - Last Filed: 07/18/18 20:45> - Lab Data Result diagrams: 07/18/18 19:00 07/18/18 19:00 <Jens Boateng - Last Filed: 07/18/18 21:13> - Medical Decision Making 87-year-old female presents to the emergency department for a chief complaint of abnormal EKG. patient was at her primary care office when they did an EKG. She was there for back pain which she states is chronic and she would like to follow-up with her primary care provider for this. Patient has a history of A. fib. EKG here shows atrial fibrillation with RVR with a ventricular rate of 116. Patient was given Cardizem which did decreased rate to 90. (Hector Garza) 87 female the ER for evaluation, back pain, A. fib with RVR. Will admit for cardiology evaluation (Jens Boateng) - Lab Data Lab Results 07/18/18 07/18/18 07/18/18 Range/Units 19:00 19:00 19:00 WBC 9.7 (3.8-10.6) k/uL RBC 5.20 (3.80-5.40) m/uL Hgb 15.2 (11.4-16.0) gm/dL Hct 46.3 H (34.0-46.0) % MCV 89.1 (80.0-100.0) fL MCH 29.2 (25.0-35.0) pg MCHC 32.8 (31.0-37.0) g/dL RDW 14.4 (11.5-15.5) % Plt Count 235 (150-450) k/uL Neutrophils % 69 % Lymphocytes % 24 % Monocytes % 4 % Eosinophils % 1 % Basophils % 0 % Neutrophils # 6.7 (1.3-7.7) k/uL Lymphocytes # 2.4 (1.0-4.8) k/uL Monocytes # 0.4 (0-1.0) k/uL Eosinophils # 0.1 (0-0.7) k/uL Basophils # 0.0 (0-0.2) k/uL PT (9.0-12.0) sec INR (<1.2) APTT (22.0-30.0) sec Sodium 143 (137-145) mmol/L Potassium 4.0 (3.5-5.1) mmol/L Chloride 101 (98-107) mmol/L Carbon Dioxide 33 H (22-30) mmol/L Anion Gap 9 mmol/L BUN 24 H (7-17) mg/dL Creatinine 0.87 (0.52-1.04) mg/dL Est GFR (CKD-EPI)AfAm 70 (>60 ml/min/1.73 sqM) Est GFR (CKD-EPI)NonAf 61 (>60 ml/min/1.73 sqM) Glucose 188 H (74-99) mg/dL Calcium 8.9 (8.4-10.2) mg/dL Magnesium 1.6 (1.6-2.3) mg/dL Total Bilirubin 0.6 (0.2-1.3) mg/dL AST 22 (14-36) U/L ALT 29 (9-52) U/L Alkaline Phosphatase 68 (38-126) U/L Total Creatine Kinase 60 (30-135) U/L CK-MB (CK-2) 1.5 (0.0-2.4) ng/mL CK-MB (CK-2) Rel Index 2.5 Troponin I <0.012 (0.000-0.034) ng/mL Total Protein 7.0 (6.3-8.2) g/dL Albumin 4.0 (3.5-5.0) g/dL 07/18/18 Range/Units 19:00 WBC (3.8-10.6) k/uL RBC (3.80-5.40) m/uL Hgb (11.4-16.0) gm/dL Hct (34.0-46.0) % MCV (80.0-100.0) fL MCH (25.0-35.0) pg MCHC (31.0-37.0) g/dL RDW (11.5-15.5) % Plt Count (150-450) k/uL Neutrophils % % Lymphocytes % % Monocytes % % Eosinophils % % Basophils % % Neutrophils # (1.3-7.7) k/uL Lymphocytes # (1.0-4.8) k/uL Monocytes # (0-1.0) k/uL Eosinophils # (0-0.7) k/uL Basophils # (0-0.2) k/uL PT 10.0 (9.0-12.0) sec INR 0.9 (<1.2) APTT 22.8 (22.0-30.0) sec Sodium (137-145) mmol/L Potassium (3.5-5.1) mmol/L Chloride (98-107) mmol/L Carbon Dioxide (22-30) mmol/L Anion Gap mmol/L BUN (7-17) mg/dL Creatinine (0.52-1.04) mg/dL Est GFR (CKD-EPI)AfAm (>60 ml/min/1.73 sqM) Est GFR (CKD-EPI)NonAf (>60 ml/min/1.73 sqM) Glucose (74-99) mg/dL Calcium (8.4-10.2) mg/dL Magnesium (1.6-2.3) mg/dL Total Bilirubin (0.2-1.3) mg/dL AST (14-36) U/L ALT (9-52) U/L Alkaline Phosphatase (38-126) U/L Total Creatine Kinase (30-135) U/L CK-MB (CK-2) (0.0-2.4) ng/mL CK-MB (CK-2) Rel Index Troponin I (0.000-0.034) ng/mL Total Protein (6.3-8.2) g/dL Albumin (3.5-5.0) g/dL Critical Care Time Critical Care Time: Yes Total Critical Care Time: 31 <Jens Boateng - Last Filed: 07/18/18 21:13> Disposition Time of Disposition: 20:46 <Hector Garza P - Last Filed: 07/18/18 20:45> Is patient prescribed a controlled substance at d/c from ED?: No <Jens Boateng - Last Filed: 07/18/18 21:13> Clinical Impression: Atrial fibrillation with RVR, Dyspnea, Atrial fibrillation, chronic Disposition: ADMITTED IP TO THIS HOSP Condition: Fair Referrals: Kareem Issa MD [Primary Care Provider] - 1-2 days
[2018-07-18 20:16] LABS: Calcium 8.9 mg/dL (8.4-10.2); Creatine Kinase 60 U/L (30-135); Magnesium 1.6 mg/dL (1.6-2.3); Total Bilirubin 0.6 mg/dL (0.2-1.3)
[2018-07-18 20:27] LABS: Creatine Kinase MB 1.5 ng/mL (0.0-2.4); Troponin I <0.012 ng/mL (0.000-0.034)
[2018-07-18 20:39] LABS: INR 0.9 (<1.2); Partial Thromboplastin Time 22.8 sec (22.0-30.0)
[2018-07-18] MEDS: DILTIAZEM 50 MG in SODIUM CHLORIDE 0.9% 40 ML IV SCH (20:42)
[2018-07-18] MEDS ORDERED: ACETAMINOPHEN TAB 325 MG TAB PO PRN (20:46)
[2018-07-18] MEDS ORDERED: NALOXONE 0.4 MG/ML 1 ML VIAL IV PRN (20:46)
--- NOTE | 2018-07-18 21:09 | XR ---
EXAMINATION: XR chest 2V DATE AND TIME: 07/18/2018 8:36 PM CLINICAL INDICATION: [facility]; Chest Pain TECHNIQUE: Departmental protocol COMPARISON: 04/25/2018 FINDINGS: The overlying soft tissues are prominent. Lungs are clear. The pleural spaces are negative. The cardiac silhouette is moderately enlarged, unchanged. Aortic tortuosity redemonstrated. The skeletal structures and soft tissues are negative for acute findings. IMPRESSION: NO ACUTE PROCESS.
[2018-07-18] MEDS: SODIUM CHLORIDE 0.9% 1,000 ML IV SCH (22:01)
[2018-07-19 06:36] LABS: Glucose,Whole Blood 140 mg/dL (75-99)
[2018-07-19] MEDS ORDERED: PANTOPRAZOLE 40 MG TABLET PO SCH (09:00)
[2018-07-19] MEDS: DILTIAZEM 50 MG in SODIUM CHLORIDE 0.9% 40 ML IV SCH (09:17)
[2018-07-19] MEDS: LOSARTAN-HCTZ 50-12.5 MG 1 EACH TAB PO SCH (09:20)
[2018-07-19] MEDS: APIXABAN 2.5 MG TABLET PO SCH ×2 (09:20→20:25)
[2018-07-19] MEDS: SERTRALINE 25 MG TAB PO SCH (09:20)
[2018-07-19] MEDS: SODIUM CHLORIDE 0.9% 1,000 ML IV SCH (09:20)
[2018-07-19 09:25] LABS: Basophils % (A) 0 %; Eosinophils # (A) 0.1 k/uL (0-0.7); Eosinophils % (A) 2 %; HCT 44.7 % (34.0-46.0); HGB 13.8 gm/dL (11.4-16.0); Hypochromasia Slight; Lymphocytes # (A) 2.4 k/uL (1.0-4.8); Lymphocytes % (A) 24 %; MCH 27.7 pg (25.0-35.0); MCHC 30.8 g/dL (31.0-37.0); MCV 89.9 fL (80.0-100.0); Mean Platelet Volume 7.1; Monocytes # (A) 0.4 k/uL (0-1.0); Monocytes % (A) 4 %; Neutrophils # (A) 6.8 k/uL (1.3-7.7); Neutrophils % (A) 69 %; Platelet Count 247 k/uL (150-450); RBC 4.97 m/uL (3.80-5.40); RDW 14.4 % (11.5-15.5); WBC 9.8 k/uL (3.8-10.6)
[2018-07-19 09:59] LABS: ALT 28 U/L (9-52); AST 19 U/L (14-36); Albumin 3.9 g/dL (3.5-5.0); Alkaline Phosphatase 56 U/L (38-126); Anion Gap 7 mmol/L; Blood Urea Nitrogen 19 mg/dL (7-17); Calcium 8.7 mg/dL (8.4-10.2); Carbon Dioxide 35 mmol/L (22-30); Chloride 100 mmol/L (98-107); Glucose 207 mg/dL (74-99); Sodium 142 mmol/L (137-145); Total Bilirubin 1.1 mg/dL (0.2-1.3); Total Protein 6.6 g/dL (6.3-8.2)
--- NOTE | 2018-07-19 11:00 | P.CRDCN ---
History of Present Illness Consult date: 07/19/18 Requesting physician: Kareem Issa Consult reason: atrial fibrillation Chief complaint: Abnormal EKG History of present illness: This is a pleasant 87-year-old female who follows regularly with Dr. Patterson in the office. She has a known history of hypertension, chronic persistent atrial fibrillation, diabetes, prior TIA, hyperlipidemia, hypothyroidism, sleep apnea, osteoarthritis, who was admitted to the hospital from her physician's office after an EKG was performed there which was concerning to him. According to the patient and her daughter, she has had a fall recently, where she rolled out of bed and hit the floor onto her back. She has been experiencing discomfort in her chest wall and upper back area, she' s also been experiencing symptoms in the lower back bilaterally. According to the patient, she's been having a lot of trouble walking because of pain in her lower back and legs, but she states that this is been going on for quite some time. EKG at the office showed atrial fibrillation with moderately rapid ventricular response. EKG on presentation here showed atrial fibrillation with controlled ventricular response. Subsequent EKG showed atrial fibrillation with a moderately rapid ventricular response. Blood pressure 132/90 with a heart rate in the 80s, 93% on room air, temperature 96.6. White blood cell count is normal, hemoglobin 13.8, platelet count 247. Sodium 142, potassium 4.0 , BUN 19 and creatinine 0.6. Troponin 0.012. TSH 4.1. Magnesium 1.6. At the time of my examination this morning, patient does complain of lower back discomfort, she also complains of chest wall and upper back pain with movement only. Past Medical History Past Medical History: Atrial Fibrillation, Chest Pain / Angina, Heart Failure, Diabetes Mellitus, GERD/Reflux, Hyperlipidemia, Hypertension, Osteoarthritis (OA ), Respiratory Disorder, Sleep Apnea/CPAP/BIPAP, Thyroid Disorder Additional Past Medical History / Comment(s): DDD WITH BACK PAIN, OCCASIONAL SWELLING IN FEET-DENIES ANY NOW., USES C-PAP MACHINE. History of Any Multi-Drug Resistant Organisms: None Reported Past Surgical History: Cholecystectomy, Hysterectomy, Joint Replacement Additional Past Surgical History / Comment(s): EGD for gastric reflux. Excision of lipomas. bilateral cataracts, total knee. Past Anesthesia/Blood Transfusion Reactions: No Reported Reaction Past Psychological History: Anxiety, Depression Smoking Status: Former smoker Past Alcohol Use History: None Reported Additional Past Alcohol Use History / Comment(s): SMOKED 3 PPD. STARTED SMOKING AGE 15, QUIT 35 YEARS AGO Past Drug Use History: None Reported Additional Drug Use History / Comment(s): . - Past Family History Brother(s) Family Medical History: Congestive Heart Failure (CHF), COPD, Coronary Artery Disease (CAD), Diabetes Mellitus Daughter(s) Additional Family Medical History / Comment(s): One from MVA Son(s) Family Medical History: Diabetes Mellitus, Hyperlipidemia, Hypertension Sister(s) Family Medical History: Cancer Mother Family Medical History: Dementia Father Family Medical History: COPD Additional Family Medical History / Comment(s): EMPHYSEMA. Medications and Allergies Home Medications Medication Instructions Recorded Confirmed Type Omeprazole [PriLOSEC] 20 mg PO DAILY 06/02/15 07/18/18 History Sertraline [Zoloft] 25 mg PO DAILY 10/18/15 07/18/18 History Apixaban [Eliquis] 2.5 mg PO BID 02/14/16 07/18/18 History Diltiazem Oral [Cardizem*] 30 mg PO TID 09/02/16 07/18/18 History Losartan/Hydrochlorothiazide 1 tab PO DAILY 09/02/16 07/18/18 History [Hyzaar 100-25 Tablet] HYDROcodone/APAP 7.5-325MG [[place] 1 tab PO TID PRN #9 tab 01/02/18 07/18/18 Rx 7.5-325] metFORMIN HCL 850 mg PO DAILY 07/18/18 07/18/18 History Allergies Allergy/AdvReac Type Severity Reaction Status Date / Time aspirin AdvReac SEE Verified 07/18/18 18:01 COMMENTS Physical Exam Vitals: Vital Signs Temp Pulse Pulse Resp BP BP Pulse Ox 07/19/18 08:13 96.6 F L 89 20 132/91 07/19/18 02:15 98.0 F 95 16 165/86 93 L 07/18/18 22:30 97.6 F 95 19 155/90 93 L 07/18/18 22:00 87 19 146/83 93 L 07/18/18 20:25 89 18 145/103 93 L 07/18/18 19:27 96 20 129/82 98 07/18/18 19:08 102 H 18 126/92 94 L 07/18/18 17:04 97.9 F 100 18 146/87 93 L Intake and Output 07/18/18 07/19/18 07/19/18 22:59 06:59 14:59 Intake Total 140 240 Balance 140 240 Intake: IV 140 0.9 140 Oral 240 Other: Voiding Method Toilet Toilet # Voids 1 3 Weight 87.543 kg 88 kg PHYSICAL EXAMINATION: GENERAL: 87-year-old female in no acute distress at the time of my examination HEENT: Head is atraumatic, normocephalic. Pupils equal, round. Sclera anicteric. Conjunctiva are clear. Mucous membranes of the mouth are moist. Neck is supple. There is no elevated jugular venous pressure. No carotid bruit is heard. HEART EXAMINATION: Heart S1 and S2 irregularly irregular a systolic murmur is heard. CHEST EXAMINATION: Lungs are clear to auscultation and precussion. Positive chest wall tenderness is noted with movement . ABDOMEN: Soft, obese, nontender. Bowel sounds are heard. No organomegaly noted. EXTREMITIES: 2+ peripheral pulses with no evidence of peripheral edema and no calf tenderness noted. NEUROLOGIC patient is awake, alert and oriented 3 . . Results 07/19/18 09:06 07/19/18 09:06 Cardiac Enzymes 07/18/18 07/18/18 07/19/18 Range/Units 19:00 19:00 09:06 AST 22 19 (14-36) U/L CK-MB (CK-2) 1.5 (0.0-2.4) ng/mL Troponin I <0.012 (0.000-0.034) ng/mL Coagulation 07/18/18 Range/Units 19:00 PT 10.0 (9.0-12.0) sec APTT 22.8 (22.0-30.0) sec CBC 07/18/18 07/19/18 Range/Units 19:00 09:06 WBC 9.7 9.8 (3.8-10.6) k/uL RBC 5.20 4.97 (3.80-5.40) m/uL Hgb 15.2 13.8 (11.4-16.0) gm/dL Hct 46.3 H 44.7 (34.0-46.0) % Plt Count 235 247 (150-450) k/uL Comprehensive Metabolic Panel 07/18/18 07/19/18 Range/Units 19:00 09:06 Sodium 143 142 (137-145) mmol/L Potassium 4.0 4.0 (3.5-5.1) mmol/L Chloride 101 100 (98-107) mmol/L Carbon Dioxide 33 H 35 H (22-30) mmol/L BUN 24 H 19 H (7-17) mg/dL Creatinine 0.87 0.68 (0.52-1.04) mg/dL Glucose 188 H 207 H (74-99) mg/dL Calcium 8.9 8.7 (8.4-10.2) mg/dL AST 22 19 (14-36) U/L ALT 29 28 (9-52) U/L Alkaline Phosphatase 68 56 (38-126) U/L Total Protein 7.0 6.6 (6.3-8.2) g/dL Albumin 4.0 3.9 (3.5-5.0) g/dL Current Medications Generic Name Dose Route Start Last Admin Trade Name Freq PRN Reason Stop Dose Admin Acetaminophen 650 mg 07/18/18 20:46 Tylenol Tab PO Q6HR PRN Mild Pain or Fever > 100.5 Hydrocodone Bitart/Acetaminophen 1 each 07/19/18 08:51 [place] 7.5-325 PO TID PRN Pain Apixaban 2.5 mg 07/19/18 09:00 07/19/18 09:20 Eliquis PO 2.5 mg BID HOMA Administration HCTZ/Losartan Potassium 2 each 07/19/18 09:00 07/19/18 09:20 Hyzaar 50-12.5 PO 2 each DAILY HOMA Administration Diltiazem HCl 50 mg/ Sodium 50 mls @ 5 mls/hr 07/18/18 20:15 07/19/18 09:17 Chloride IV Not Given .Q10H HOMA 5 MG/HR Sodium Chloride 1,000 mls @ 75 mls/hr 07/18/18 21:00 07/19/18 09:20 Saline 0.9% IV 75 mls/hr .[id number] HOMA Administration Insulin Aspart 0 unit 07/19/18 12:30 Novolog SQ ACHS HOMA Protocol Naloxone HCl 0.2 mg 07/18/18 20:46 Narcan IV Q2M PRN Opioid Reversal Pantoprazole Sodium 40 mg 07/19/18 09:00 07/19/18 09:21 Protonix PO 40 mg [id number] HOMA Administration Sertraline HCl 25 mg 07/19/18 09:00 07/19/18 09:20 Zoloft PO 25 mg DAILY HOMA Administration Intake and Output 07/18/18 07/19/18 07/19/18 22:59 06:59 14:59 Intake Total 140 240 Balance 140 240 Intake: IV 140 0.9 140 Oral 240 Other: Voiding Method Toilet Toilet # Voids 1 3 Weight 87.543 kg 88 kg 07/19/18 09:06 07/19/18 09:06 EKG Interpretations (text) EKG shows atrial fibrillation with a controlled ventricular Assessment and Plan Plan: Assessment and Plan #1 recent fall #2 chest and upper back discomfort, could be secondary to recent fall. Very musculoskeletal in nature. Initial troponin negative. EKG shows A. fib with controlled ventricular response, nonspecific ST-T wave changes #3 chronic persistent atrial fibrillation, on Eliquis for anticoagulation #4 chronic lower back pain with associated bilateral leg discomfort and weakness #5 diabetes #6 hypertension #7 hyperlipidemia #8 sleep apnea #9 osteoarthritis Plan Patient had an echocardiogram with Doppler study performed in December of last year which revealed a normal left ventricular systolic function, severe pulmonary hypertension. We will repeat an echocardiogram with Doppler study. Continue Eliquis 2-1/2 mg one tablet by mouth twice a day, discontinue Cardizem and resume oral Cardizem. Her pain is very musculoskeletal in nature, we will obtain 2 subsequent troponins. DNP note has been reviewed, I agree with a documented findings and plan of care. Patient was seen and examined.
--- NOTE | 2018-07-19 11:00 | P.HPIM ---
History of Present Illness H&P Date: 07/19/18 Chief Complaint: Abnormal EKG This is a 87-year-old female with a known history of atrial fibrillation, congestive heart failure, possible myocardial infarctions, hyperlipidemia, hypertension, obstructive sleep apnea in which she is noncompliant with her machine, COPD and diabetes mellitus. Patient was came into the emergency room after being sent from Dr. Issa's office due to an abnormal EKG. Initial EKG here here in the ER had shown atrial fibrillation with a rapid ventricular response heart rate of 116. Patient admits to not taking her morning pills which did include her Cardizem. Patient also does have been issues with increase in fatigue and shortness of breath. Patient also had been complaining of chest pain and numbness in the left arm and back discomfort. Patient does have chronic back pain and a pinched nerve. Patient denies any new injury to her back. She does report rolling out of her bed accidentally while she was sleeping and landing on the floor. The denies any new injury. Patient has been admitted to the telemetry floor. Cardiology on consult. She is currently on a Cardizem drip. And her Eliquis was restarted. Patient denies any cough, fever, chills or sweats. Denies any nausea or vomiting. Denies any bowel movement changes or urinary symptoms. She is and the daughter was able to give a lot of the patient's history. Review of Systems Please return to HPI otherwise unremarkable Past Medical History Past Medical History: Atrial Fibrillation, Chest Pain / Angina, Heart Failure, Diabetes Mellitus, GERD/Reflux, Hyperlipidemia, Hypertension, Osteoarthritis (OA ), Respiratory Disorder, Sleep Apnea/CPAP/BIPAP, Thyroid Disorder Additional Past Medical History / Comment(s): DDD WITH BACK PAIN, OCCASIONAL SWELLING IN FEET-DENIES ANY NOW., USES C-PAP MACHINE. History of Any Multi-Drug Resistant Organisms: None Reported Past Surgical History: Cholecystectomy, Hysterectomy, Joint Replacement Additional Past Surgical History / Comment(s): EGD for gastric reflux. Excision of lipomas. bilateral cataracts, total knee. Past Anesthesia/Blood Transfusion Reactions: No Reported Reaction Past Psychological History: Anxiety, Depression Smoking Status: Former smoker Past Alcohol Use History: None Reported Additional Past Alcohol Use History / Comment(s): SMOKED 3 PPD. STARTED SMOKING AGE 15, QUIT 35 YEARS AGO Past Drug Use History: None Reported Additional Drug Use History / Comment(s): . - Past Family History Brother(s) Family Medical History: Congestive Heart Failure (CHF), COPD, Coronary Artery Disease (CAD), Diabetes Mellitus Daughter(s) Additional Family Medical History / Comment(s): One from MVA Son(s) Family Medical History: Diabetes Mellitus, Hyperlipidemia, Hypertension Sister(s) Family Medical History: Cancer Mother Family Medical History: Dementia Father Family Medical History: COPD Additional Family Medical History / Comment(s): EMPHYSEMA. Medications and Allergies Home Medications Medication Instructions Recorded Confirmed Type Omeprazole [PriLOSEC] 20 mg PO DAILY 06/02/15 07/18/18 History Sertraline [Zoloft] 25 mg PO DAILY 10/18/15 07/18/18 History Apixaban [Eliquis] 2.5 mg PO BID 02/14/16 07/18/18 History Diltiazem Oral [Cardizem*] 30 mg PO TID 09/02/16 07/18/18 History Losartan/Hydrochlorothiazide 1 tab PO DAILY 09/02/16 07/18/18 History [Hyzaar 100-25 Tablet] HYDROcodone/APAP 7.5-325MG [[place] 1 tab PO TID PRN #9 tab 01/02/18 07/18/18 Rx 7.5-325] metFORMIN HCL 850 mg PO DAILY 07/18/18 07/18/18 History Allergies Allergy/AdvReac Type Severity Reaction Status Date / Time aspirin AdvReac SEE Verified 07/18/18 18:01 COMMENTS Physical Exam Vitals: Vital Signs Temp Pulse Pulse Resp BP BP Pulse Ox 07/19/18 08:13 96.6 F L 89 20 132/91 07/19/18 02:15 98.0 F 95 16 165/86 93 L 07/18/18 22:30 97.6 F 95 19 155/90 93 L 07/18/18 22:00 87 19 146/83 93 L 07/18/18 20:25 89 18 145/103 93 L 07/18/18 19:27 96 20 129/82 98 07/18/18 19:08 102 H 18 126/92 94 L 07/18/18 17:04 97.9 F 100 18 146/87 93 L Intake and Output 01/07/19/18 07/19/18 22:59 06:59 14:59 Intake Total 140 240 Balance 140 240 Intake: IV 140 0.9 140 Oral 240 Other: Voiding Method Toilet Toilet # Voids 1 3 Weight 87.543 kg 88 kg Head normocephalic Neck supple Lungs clear to auscultation bilaterally no wheezing or crackles Heart irregular A. fib on monitor Abdomen is soft nontender nondistended positive bowel sounds no hepatosplenomegaly Extremities edema bilateral lower extremities Neuro alert and orientated to 3 Results CBC & Chem 7: 07/19/18 09:06 07/19/18 09:06 Labs: Abnormal Lab Results - Last 24 Hours (Table) 07/18/18 07/18/18 07/19/18 Range/Units 19:00 19:00 06:34 Hct 46.3 H (34.0-46.0) % MCHC (31.0-37.0) g/dL Carbon Dioxide 33 H (22-30) mmol/L BUN 24 H (7-17) mg/dL Glucose 188 H (74-99) mg/dL POC Glucose (mg/dL) 140 H (75-99) mg/dL 07/19/18 07/19/18 Range/Units 09:06 09:06 Hct (34.0-46.0) % MCHC 30.8 L (31.0-37.0) g/dL Carbon Dioxide 35 H (22-30) mmol/L BUN 19 H (7-17) mg/dL Glucose 207 H (74-99) mg/dL POC Glucose (mg/dL) (75-99) mg/dL Thrombosis Risk Factor Assmnt - Choose All That Apply Any of the Below Risk Factors Present?: Yes Each Factor Represents 1 point: Obesity (BMI >25) Other Risk Factors: Yes Each Risk Factor Represents 3 Points: Age 75 years or older Other congenital or acquired thrombophilia - If yes, enter type in comment: No Thrombosis Risk Factor Assessment Total Risk Factor Score: 4 Thrombosis Risk Factor Assessment Level: Moderate Risk Assessment and Plan Assessment: 1. Atrial fibrillation with rapid ventricular response. Patient has a known history of chronic atrial fibrillation. Patient currently on a Cardizem drip. Anticoagulated with Eliquis. Cardiology on consult. Check thyroid level 2. History of diabetes mellitus type 2: Hold metformin during hospitalization, add sliding scale check coverage. Check A1c 3. Hyperlipidemia 4. Essential hypertension 5. Obstructive sleep apnea noncompliant with CPAP machine. Discussed importance of patient regarding using CPAP 6. COPD no evidence of exacerbation. Resume home nebulizer treatments 7. Chest pain possibly related to her atrophic fibrillation with RVR. troponin negative. Cardiology on consult GI prophylaxis Protonix and DVT prophylaxis Eliquis Time with Patient: Greater than 30 (Greater than 50% of the total time spent in counseling and coordination of care.I performed an examination of the patient and discussed their management with the physician Safety Sitter. I have reviewed the Physician Safety Sitter's notes and agree with the documented findings and plan of care)
[2018-07-19 11:16] LABS: Glucose,Whole Blood 147 mg/dL (75-99)
[2018-07-19] MEDS: DILTIAZEM CD 120 MG CAP.ER.24H PO SCH (13:11)
[2018-07-19] MEDS: INSULIN ASPART 100 UNIT/ML 1 ML 10 ML VIAL SQ SCH ×3 (13:11→21:00)
[2018-07-19 16:16] LABS: Glucose,Whole Blood 152 mg/dL (75-99)
[2018-07-19 17:32] LABS: Hemoglobin A1C 6.7 % (4.0-6.0)
[2018-07-19] MEDS: HYDROcodone/APAP 7.5-325MG 1 EACH TAB PO PRN (17:58)
[2018-07-19] MEDS: IPRATROPIUM-ALBUTEROL 3 ML NEB INHALATION PRN (19:45)
[2018-07-19] MEDS: PANTOPRAZOLE 40 MG TABLET PO SCH (20:25)
[2018-07-19 21:08] LABS: Glucose,Whole Blood 135 mg/dL (75-99)
[2018-07-20 06:17] LABS: Glucose,Whole Blood 119 mg/dL (75-99)
[2018-07-20] MEDS: INSULIN ASPART 100 UNIT/ML 1 ML 10 ML VIAL SQ SCH ×4 (06:23→21:18)
[2018-07-20] MEDS: SODIUM CHLORIDE 0.9% 1,000 ML IV SCH ×3 (06:24→21:18)
[2018-07-20] MEDS: PANTOPRAZOLE 40 MG TABLET PO SCH ×2 (07:01→17:11)
[2018-07-20 07:29] LABS: Basophils % (A) 0 %; Eosinophils # (A) 0.1 k/uL (0-0.7); Eosinophils % (A) 1 %; HCT 47.2 % (34.0-46.0); Hypochromasia Slight; Lymphocytes # (A) 2.1 k/uL (1.0-4.8); Lymphocytes % (A) 28 %; MCH 28.8 pg (25.0-35.0); MCHC 31.8 g/dL (31.0-37.0); MCV 90.8 fL (80.0-100.0); Mean Platelet Volume 7.6; Monocytes # (A) 0.3 k/uL (0-1.0); Monocytes % (A) 4 %; Neutrophils # (A) 4.8 k/uL (1.3-7.7); Neutrophils % (A) 65 %; Platelet Count 173 k/uL (150-450); RDW 14.5 % (11.5-15.5); WBC 7.5 k/uL (3.8-10.6)
[2018-07-20 07:46] LABS: ALT 41 U/L (9-52); AST 47 U/L (14-36); Albumin 3.9 g/dL (3.5-5.0); Alkaline Phosphatase 56 U/L (38-126); Anion Gap 7 mmol/L; Blood Urea Nitrogen 18 mg/dL (7-17); Calcium 8.9 mg/dL (8.4-10.2); Carbon Dioxide 34 mmol/L (22-30); Chloride 100 mmol/L (98-107); Glucose 128 mg/dL (74-99); Potassium 4.2 mmol/L (3.5-5.1); Sodium 141 mmol/L (137-145); Total Bilirubin 1.3 mg/dL (0.2-1.3); Total Protein 6.7 g/dL (6.3-8.2)
[2018-07-20] MEDS: SERTRALINE 25 MG TAB PO SCH (09:11)
[2018-07-20] MEDS: APIXABAN 2.5 MG TABLET PO SCH ×2 (09:11→20:04)
[2018-07-20] MEDS: DILTIAZEM CD 120 MG CAP.ER.24H PO SCH (09:11)
[2018-07-20] MEDS: LOSARTAN-HCTZ 50-12.5 MG 1 EACH TAB PO SCH (09:11)
[2018-07-20] MEDS: HYDROcodone/APAP 7.5-325MG 1 EACH TAB PO PRN ×2 (09:12→17:11)
--- NOTE | 2018-07-20 09:16 | ECHOF ---
Referral Reason:afib MEASUREMENTS -------- HEIGHT: 127.0 cm WEIGHT: 88.0 kg BP: RVIDd: 2.9 cm (< 3.3) IVSd: 1.0 cm (0.6 - 1.1) LVIDd: 4.5 cm (3.9 - 5.3) LVPWd: 0.9 cm (0.6 - 1.1) IVSs: 1.2 cm LVIDs: 3.9 cm LVPWs: 1.2 cm MV EXCURSION: 19.176 mm (> 18.000) MV EF SLOPE: 63 mm/s (70 - 150) EPSS: 0.7 cm MV E Henrique: 0.49 m/s MV DecT: 142 ms MV A Henrique: 0.26 m/s MV E/A Ratio: 1.91 RAP: 5.00 mmHg RVSP: 11.95 mmHg FINDINGS -------- Undetermined rhythm. This was a techncally difficult study with suboptimal views, , Lumason utilized for enhancement of im ages. The left ventricular size is normal. There is mild concentric left ventricular hypertrophy. Overa ll left ventricular systolic function is low-normal with, an EF between 50 - 55 %. Basal inferior L V wall motion is hypokinetic. The right ventricle is normal in size. The left atrial size is normal. The right atrial size is normal. 5.0mg OF Lumason UTLIZED: 2 OR MORE WALL SEGMENTS NOT VISUALIZED. The aortic valve was not well visualized. Mild mitral annular calcification present. Mild mitral regurgitation is present. Mild tricuspid regurgitation present. There is no evidence of pulmonary hypertension. The right v entricular systolic pressure, as measured by Doppler, is 11.95mmHg. The pulmonic valve was not well visualized. The aortic root size is normal. Echo free space represents a pericardial fat pad. CONCLUSIONS -------- 1. This was a techncally difficult study with suboptimal views, , Lumason utilized for enhancement of images. 2. The left ventricular size is normal. 3. There is mild concentric left ventricular hypertrophy. 4. Overall left ventricular systolic function is low-normal with, an EF between 50 - 55 %. 5. Basal inferior LV wall motion is hypokinetic. 6. The right ventricle is normal in size. 7. The left atrial size is normal. 8. The right atrial size is normal. 9. 5.0mg OF Lumason UTLIZED: 2 OR MORE WALL SEGMENTS NOT VISUALIZED. 10. The aortic valve was not well visualized. 11. Mild mitral annular calcification present. 12. Mild mitral regurgitation is present. 13. Mild tricuspid regurgitation present. 14. There is no evidence of pulmonary hypertension. 15. The right ventricular systolic pressure, as measured by Doppler, is 11.95mmHg. 16. The pulmonic valve was not well visualized. 17. The aortic root size is normal. 18. Echo free space represents a pericardial fat pad. FASHION SHOW DIRECTOR: Jalyn Waterman RDCS
--- NOTE | 2018-07-20 11:01 | P.PN ---
Subjective Progress Note Date: 07/20/18 This is a pleasant 87-year-old female who follows regularly with Dr. Patterson in the office. She has a known history of hypertension, chronic persistent atrial fibrillation, diabetes, prior TIA, hyperlipidemia, hypothyroidism, sleep apnea, osteoarthritis, who was admitted to the hospital from her physician's office after an EKG was performed there which was concerning to him. According to the patient and her daughter, she has had a fall recently, where she rolled out of bed and hit the floor onto her back. She has been experiencing discomfort in her chest wall and upper back area, she' s also been experiencing symptoms in the lower back bilaterally. According to the patient, she's been having a lot of trouble walking because of pain in her lower back and legs, but she states that this is been going on for quite some time. EKG at the office showed atrial fibrillation with moderately rapid ventricular response. EKG on presentation here showed atrial fibrillation with controlled ventricular response. Subsequent EKG showed atrial fibrillation with a moderately rapid ventricular response. Blood pressure 132/90 with a heart rate in the 80s, 93% on room air, temperature 96.6. White blood cell count is normal, hemoglobin 13.8, platelet count 247. Sodium 142, potassium 4.0 , BUN 19 and creatinine 0.6. Troponin 0.012. TSH 4.1. Magnesium 1.6. At the time of my examination this morning, patient does complain of lower back discomfort, she also complains of chest wall and upper back pain with movement only. 07/20/2018 Patient was seen and examined this morning, sitting up at bedside eating her breakfast. Overall feels better today. She is still complaining of some lower back discomfort especially when she moves or takes a deep breath. An echocardiogram with Doppler study has been performed which revealed an ejection fraction of 50-55%. Blood pressure 130/50 with a heart rate in the 70s to 90. Patient is currently on Eliquis 2-1/2 mg by mouth twice a day and Cardizem CD 120 daily along with her losartan. She's been advised to continue with these current medications. From our perspective she may be able to be discharged when she is cleared by primary and follow-up in the office post discharge. Objective - Vital Signs Vital signs: Vital Signs Temp 97.9 F 07/20/18 08:00 Pulse 94 07/20/18 08:00 Resp 18 07/20/18 08:00 BP 130/58 07/20/18 08:00 Pulse Ox 92 L 07/20/18 08:00 Intake & Output 07/19/18 07/20/18 07/20/18 18:59 06:59 18:59 Intake Total 480 680 240 Output Total 600 Balance -120 680 240 Weight 87.6 kg Intake: IV 200 0.9 200 Oral 480 480 240 Output: Urine 600 Other: Voiding Method Toilet Toilet # Voids 3 - Exam PHYSICAL EXAMINATION: GENERAL: 87-year-old female in no acute distress at the time of my examination HEENT: Head is atraumatic, normocephalic. Pupils equal, round. Sclera anicteric. Conjunctiva are clear. Mucous membranes of the mouth are moist. Neck is supple. There is no elevated jugular venous pressure. No carotid bruit is heard. HEART EXAMINATION: Heart S1 and S2 irregularly irregular a systolic murmur is heard. CHEST EXAMINATION: Lungs are clear to auscultation and precussion. Positive chest wall tenderness is noted with movement . ABDOMEN: Soft, obese, nontender. Bowel sounds are heard. No organomegaly noted. EXTREMITIES: 2+ peripheral pulses with no evidence of peripheral edema and no calf tenderness noted. NEUROLOGIC patient is awake, alert and oriented 3 . - Labs CBC & Chem 7: 07/20/18 06:50 07/20/18 06:50 Labs: Abnormal Lab Results - Last 24 Hours (Table) 07/19/18 07/19/18 07/19/18 Range/Units 09:06 11:13 16:14 Hct (34.0-46.0) % Carbon Dioxide (22-30) mmol/L BUN (7-17) mg/dL Glucose (74-99) mg/dL POC Glucose (mg/dL) 147 H 152 H (75-99) mg/dL Hemoglobin A1c 6.7 H (4.0-6.0) % AST (14-36) U/L 07/19/18 07/20/18 07/20/18 Range/Units 20:56 06:16 06:50 Hct 47.2 H (34.0-46.0) % Carbon Dioxide (22-30) mmol/L BUN (7-17) mg/dL Glucose (74-99) mg/dL POC Glucose (mg/dL) 135 H 119 H (75-99) mg/dL Hemoglobin A1c (4.0-6.0) % AST (14-36) U/L 07/20/18 Range/Units 06:50 Hct (34.0-46.0) % Carbon Dioxide 34 H (22-30) mmol/L BUN 18 H (7-17) mg/dL Glucose 128 H (74-99) mg/dL POC Glucose (mg/dL) (75-99) mg/dL Hemoglobin A1c (4.0-6.0) % AST 47 H (14-36) U/L Assessment and Plan Plan: Assessment and Plan #1 recent fall #2 chest and upper back discomfort, could be secondary to recent fall. Very musculoskeletal in nature. Initial troponin negative. EKG shows A. fib with controlled ventricular response, nonspecific ST-T wave changes #3 chronic persistent atrial fibrillation, on Eliquis for anticoagulation #4 chronic lower back pain with associated bilateral leg discomfort and weakness #5 diabetes #6 hypertension #7 hyperlipidemia #8 sleep apnea #9 osteoarthritis Plan Echocardiogram with Doppler study revealed an ejection fraction of 50-55%. From cardiology's perspective, patient may be able to be discharged once cleared by primary. We'll make her a follow-up appointment in the office post discharge. She has been advised to continue the Cardizem CD 120 mg daily. DNP note has been reviewed, I agree with a documented findings and plan of care. Patient was seen and examined.
[2018-07-20] MEDS: IPRATROPIUM-ALBUTEROL 3 ML NEB INHALATION PRN (11:13)
[2018-07-20 11:31] LABS: Glucose,Whole Blood 143 mg/dL (75-99)
--- NOTE | 2018-07-20 13:01 | P.PN ---
Subjective Progress Note Date: 07/20/18 This is a 87-year-old female with a known history of atrial fibrillation, congestive heart failure, possible myocardial infarctions, hyperlipidemia, hypertension, obstructive sleep apnea in which she is noncompliant with her machine, COPD and diabetes mellitus. Patient was came into the emergency room after being sent from Dr. Issa's office due to an abnormal EKG. Initial EKG here here in the ER had shown atrial fibrillation with a rapid ventricular response heart rate of 116. Patient admits to not taking her morning pills which did include her Cardizem. Patient also does have been issues with increase in fatigue and shortness of breath. Patient also had been complaining of chest pain and numbness in the left arm and back discomfort. Patient does have chronic back pain and a pinched nerve. Patient denies any new injury to her back. She does report rolling out of her bed accidentally while she was sleeping and landing on the floor. The denies any new injury. Patient has been admitted to the telemetry floor. Cardiology on consult. She is currently on a Cardizem drip. And her Eliquis was restarted. Patient denies any cough, fever, chills or sweats. Denies any nausea or vomiting. Denies any bowel movement changes or urinary symptoms. She is and the daughter was able to give a lot of the patient's history. 07/20/2018 case discussed with cardiology. Patient's heart rate is controlled. She is off of the Cardizem drip. Her oral Cardizem was restarted yesterday. Patient is complaining of lower back pain. Her back pain is worse with taking a deep breath. Patient evaluated by cardiology troponins are negative 3 sets. They felt that patient's chest discomfort where is related to muscle skeletal pain due to her following. TSH levels normal echo shows an EF of 55-60%. Patient did have a drop in her oxygen saturation down to 82% on room air when she got up this morning. A new chest x-ray has been ordered. Chest x-ray on admission was negative. Patient does have a known history of COPD and has been getting breathing treatments. Patient does report having shakiness at times In her arms and her head. Objective - Vital Signs Vital signs: Vital Signs Temp 98.2 F 07/20/18 12:00 Pulse 91 07/20/18 12:00 Resp 18 07/20/18 12:00 BP 108/66 07/20/18 12:00 Pulse Ox 96 07/20/18 12:00 Intake & Output 07/19/18 07/20/18 07/20/18 18:59 06:59 18:59 Intake Total 480 680 240 Output Total 600 Balance -120 680 240 Weight 87.6 kg Intake: IV 200 0.9 200 Oral 480 480 240 Output: Urine 600 Other: Voiding Method Toilet Toilet # Voids 3 - Exam Head normocephalic Neck supple Lungs diminished bilaterally Heart irregular. A. fib on monitor Abdomen is soft nontender nondistended positive bowel sounds no hepatosplenomegaly Extremities no edema Neuro alert and orientated to 3 - Labs CBC & Chem 7: 07/20/18 06:50 07/20/18 06:50 Labs: Abnormal Lab Results - Last 24 Hours (Table) 07/19/18 07/19/18 07/19/18 Range/Units 09:06 16:14 20:56 Hct (34.0-46.0) % Carbon Dioxide (22-30) mmol/L BUN (7-17) mg/dL Glucose (74-99) mg/dL POC Glucose (mg/dL) 152 H 135 H (75-99) mg/dL Hemoglobin A1c 6.7 H (4.0-6.0) % AST (14-36) U/L 07/20/18 07/20/18 07/20/18 Range/Units 06:16 06:50 06:50 Hct 47.2 H (34.0-46.0) % Carbon Dioxide 34 H (22-30) mmol/L BUN 18 H (7-17) mg/dL Glucose 128 H (74-99) mg/dL POC Glucose (mg/dL) 119 H (75-99) mg/dL Hemoglobin A1c (4.0-6.0) % AST 47 H (14-36) U/L 07/20/18 Range/Units 11:29 Hct (34.0-46.0) % Carbon Dioxide (22-30) mmol/L BUN (7-17) mg/dL Glucose (74-99) mg/dL POC Glucose (mg/dL) 143 H (75-99) mg/dL Hemoglobin A1c (4.0-6.0) % AST (14-36) U/L Assessment and Plan Assessment: 1. Atrial fibrillation with rapid ventricular response. Patient has a known history of chronic persistent atrial fibrillation. Patient seen by cardiology. Heart rate is controlled. She is switched over to oral Cardizem. And will continue Eliquis for anticoagulation 2. History of diabetes mellitus type 2: Hold metformin during hospitalization, add sliding scale check coverage. A1c 6.7 3. Hyperlipidemia 4. Essential hypertension 5. Obstructive sleep apnea noncompliant with CPAP machine. Discussed importance of patient regarding using CPAP 6. COPD no evidence of exacerbation. Resume home nebulizer treatments 7. Chest pain and back pain: Likely musculoskeletal. Patient has had falls. Troponins 3 sets. Patient seen and evaluated by cardiology. 8. Hypoxic: Patient did have a drop in oxygen saturation 82% check chest x- ray. Consult pulmonary. 9. Chronic back pain further workup will be conducted in the outpatient setting. Consult physical therapy GI prophylaxis Protonix and DVT prophylaxis Eliquis I performed an examination of the patient and discussed their management with the physician [employer]. I have reviewed the Physician [employer]'s notes and agree with the documented findings and plan of care
[2018-07-20 16:34] LABS: Glucose,Whole Blood 139 mg/dL (75-99)
--- NOTE | 2018-07-20 16:53 | XR ---
EXAMINATION TYPE: XR lumbar spine 2 or 3V DATE OF EXAM: 07/20/2018 CLINICAL HISTORY: Generalized lower back pain TECHNIQUE: Frontal and lateral images of the lumbar spine are obtained. COMPARISON: 09/01/2015 FINDINGS: There is extensive multilevel degenerative disc disease with flowing anterior osteophytes b ridge the upper and mid lumbar spine. There is a mild levoscoliosis of the thoracolumbar junction. Ve rtebral body heights of lumbar spine appear maintained as does alignment. Cholecystectomy clips are p resent. Mild atherosclerosis of the abdominal aorta is noted.. 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 No acute comp ression deformity or malalignment is seen.
--- NOTE | 2018-07-20 16:54 | XR ---
EXAMINATION TYPE: XR chest 2V DATE OF EXAM: 07/20/2018 COMPARISON: 07/18/2018 HISTORY: Shortness of breath TECHNIQUE: Frontal and lateral views of the chest are obtained. FINDINGS: There is no focal air space opacity, pleural effusion, or pneumothorax seen. The cardiac silhouette size is again enlarged. Lower thoracic compression deformity is unchanged from the prior. Moderate multilevel degenerative change of the thoracolumbar spine is noted. Cholecystectomy clips a re seen. IMPRESSION: No acute cardiopulmonary process.
--- NOTE | 2018-07-20 17:06 | P.CNPUL ---
History of Present Illness Consult date: 07/20/18 Reason for consult: dyspnea, cough, asthma, COPD, obstructive sleep apnea Chief complaint: Reason for consult COPD History of present illness: 87-year-old female well-known to me one of the regular office patient, patient has a history of the severe COPD has been on bronchodilator therapy, patient also has history of multiple cardiovascular problem issues and issues including chronic atrial fibrillation chronic diastolic heart failure obesity and degenerative joint disease and osteoarthritis patient has been having hip pain and back pain for which was seen by primary care provider noted to have EKG changes sent into the emergency department for further evaluation she does have intermittent dry cough shortness of breath which is slightly worse than before she has been on anticoagulation with oral anticoagulants she has been on antihypertensive agents, patient does not use oxygen at home, patient has declined polysomnogram in the past, she has been on nebulizer therapy which she uses 2-3 times a day, patient has chronic dyspnea on exertion she feels slight worsening now and also feeling more short of breath than baseline, I was asked to evaluate this patient for intermittent hypoxia, she was found to be 92% on 2 L oxygen, review of the data revealed that her chest x-ray at the time of admit revealed a follow-up x-ray failed to reveal any cardiopulmonary active process, her echocardiogram revealed ejection for 50-55% and inferior wall hypokinesia has been noted, no evidence of pulmonary hypertension was noted, her troponin 3 are normal her medications are being continued including her anticoagulation she has been on bronchodilator therapy was seems to be helping Review of Systems All systems: negative Past Medical History Past Medical History: Atrial Fibrillation, Chest Pain / Angina, Heart Failure, Diabetes Mellitus, GERD/Reflux, Hyperlipidemia, Hypertension, Osteoarthritis (OA ), Respiratory Disorder, Sleep Apnea/CPAP/BIPAP, Thyroid Disorder Additional Past Medical History / Comment(s): DDD WITH BACK PAIN, OCCASIONAL SWELLING IN FEET-DENIES ANY NOW., USES C-PAP MACHINE. History of Any Multi-Drug Resistant Organisms: None Reported Past Surgical History: Cholecystectomy, Hysterectomy, Joint Replacement Additional Past Surgical History / Comment(s): EGD for gastric reflux. Excision of lipomas. bilateral cataracts, total knee. Past Anesthesia/Blood Transfusion Reactions: No Reported Reaction Past Psychological History: Anxiety, Depression Smoking Status: Former smoker Past Alcohol Use History: None Reported Additional Past Alcohol Use History / Comment(s): SMOKED 3 PPD. STARTED SMOKING AGE 15, QUIT 35 YEARS AGO Past Drug Use History: None Reported Additional Drug Use History / Comment(s): . - Past Family History Brother(s) Family Medical History: Congestive Heart Failure (CHF), COPD, Coronary Artery Disease (CAD), Diabetes Mellitus Daughter(s) Additional Family Medical History / Comment(s): One from MVA Son(s) Family Medical History: Diabetes Mellitus, Hyperlipidemia, Hypertension Sister(s) Family Medical History: Cancer Mother Family Medical History: Dementia Father Family Medical History: COPD Additional Family Medical History / Comment(s): EMPHYSEMA. Medications and Allergies Home Medications Medication Instructions Recorded Confirmed Type Omeprazole [PriLOSEC] 20 mg PO DAILY 06/02/15 07/18/18 History Sertraline [Zoloft] 25 mg PO DAILY 10/18/15 07/18/18 History Apixaban [Eliquis] 2.5 mg PO BID 02/14/16 07/18/18 History Losartan/Hydrochlorothiazide 1 tab PO DAILY 09/02/16 07/18/18 History [Hyzaar 100-25 Tablet] HYDROcodone/APAP 7.5-325MG [[place] 1 tab PO TID PRN #9 tab 01/02/18 07/18/18 Rx 7.5-325] metFORMIN HCL 850 mg PO DAILY 07/18/18 07/18/18 History Diltiazem Cd [Cardizem CD] 120 mg PO DAILY #30 cap.er.24h 07/20/18 Rx Allergies Allergy/AdvReac Type Severity Reaction Status Date / Time aspirin AdvReac SEE Verified 07/18/18 18:01 COMMENTS Physical Exam Vitals: Vital Signs Temp Pulse Pulse Resp BP Pulse Ox 07/20/18 16:00 98.1 F 78 18 118/74 92 L 07/20/18 12:00 98.2 F 91 18 108/66 96 07/20/18 11:32 80 07/20/18 11:13 80 07/20/18 08:00 97.9 F 94 18 130/58 92 L 07/20/18 04:00 98.1 F 75 19 139/68 95 07/20/18 00:10 98.2 F 72 19 123/58 94 L 07/19/18 23:24 71 19 07/19/18 20:00 97.6 F 79 19 134/62 97 07/19/18 19:58 84 07/19/18 19:47 85 97 07/19/18 17:00 94 L Intake and Output 07/20/18 07/20/18 07/20/18 06:59 14:59 22:59 Intake Total 680 720 Balance 680 720 Intake: IV 200 0.9 200 Oral 480 720 Other: Voiding Method Toilet # Voids 3 3 # Bowel Movements 0 Weight 87.6 kg - Constitutional General appearance: cooperative, disheveled, morbidly obese - EENT Eyes: EOMI, PERRLA, poor dentition, normal appearance ENT: hard of hearing Ears: bilateral: normal - Neck Neck: normal ROM Carotids: bilateral: upstroke normal, bruit absent Thyroid: bilateral: normal size - Respiratory Respiratory: bilateral: diminished, wheezing (Fine on forced expiration), negative: dullness, rales, rhonchi - Cardiovascular Rhythm: regular Heart sounds: normal: S1, S2 - Gastrointestinal General gastrointestinal: distended, normal bowel sounds, soft - Neurologic Neurologic: CNII-XII intact - Musculoskeletal Musculoskeletal: gait normal, generalized weakness, strength equal bilaterally - Psychiatric Psychiatric: A&O x's 3, appropriate affect, intact judgment & insight Results - Laboratory Findings CBC and BMP: 07/20/18 06:50 07/20/18 06:50 PT/INR, D-dimer PT 10.0 sec (9.0-12.0) 07/18/18 19:00 INR 0.9 (<1.2) 07/18/18 19:00 D-Dimer 0.41 mg/L FEU (<0.60) 07/19/18 09:06 Abnormal lab findings: Abnormal Labs 07/18/18 07/18/18 07/19/18 19:00 19:00 06:34 Hct 46.3 H MCHC Carbon Dioxide 33 H BUN 24 H Glucose 188 H POC Glucose (mg/dL) 140 H Hemoglobin A1c AST 07/19/18 07/19/18 07/19/18 09:06 09:06 09:06 Hct MCHC 30.8 L Carbon Dioxide 35 H BUN 19 H Glucose 207 H POC Glucose (mg/dL) Hemoglobin A1c 6.7 H AST 07/19/18 07/19/18 07/19/18 11:13 16:14 20:56 Hct MCHC Carbon Dioxide BUN Glucose POC Glucose (mg/dL) 147 H 152 H 135 H Hemoglobin A1c AST 07/20/18 07/20/18 07/20/18 06:16 06:50 06:50 Hct 47.2 H MCHC Carbon Dioxide 34 H BUN 18 H Glucose 128 H POC Glucose (mg/dL) 119 H Hemoglobin A1c AST 47 H 07/20/18 07/20/18 11:29 16:31 Hct MCHC Carbon Dioxide BUN Glucose POC Glucose (mg/dL) 143 H 139 H Hemoglobin A1c AST - Diagnostic Findings Chest x-ray: report reviewed, image reviewed Assessment and Plan Assessment: Acute COPD exacerbation Acute hypoxic respiratory failure related to above Low back pain and hip pain with Sciatica-like syndrome Severe morbid obesity Chronic atrial fibrillation Likely sleep disorder breathing and sleep apnea Generalized weakness and medical debility Hypertension hypertensive cardiovascular disease Possible coronary artery disease with inferior wall hypokinesia Plan: Agree with bronchodilator therapy Supplemental oxygen We will do a short course of IV steroids Patient will need a sleep study we'll discuss with her further if she is agreeable We'll follow clinical course closely further recommendations pending Time with Patient: Greater than 30
[2018-07-20] MEDS: methylPREDNISolone SOD SUCCI 40 MG/ML 1 ML VIAL IV SCH (20:06)
[2018-07-20 20:48] LABS: Glucose,Whole Blood 131 mg/dL (75-99)
[2018-07-21 06:19] LABS: Glucose,Whole Blood 240 mg/dL (75-99)
[2018-07-21] MEDS: PANTOPRAZOLE 40 MG TABLET PO SCH ×2 (06:27→17:17)
[2018-07-21] MEDS: INSULIN ASPART 100 UNIT/ML 1 ML 10 ML VIAL SQ SCH ×4 (06:27→21:36)
[2018-07-21 06:41] LABS: Basophils % (A) 0 %; Eosinophils # (A) 0.1 k/uL (0-0.7); Eosinophils % (A) 1 %; HCT 41.1 % (34.0-46.0); HGB 13.3 gm/dL (11.4-16.0); Hypochromasia Slight; Lymphocytes # (A) 0.9 k/uL (1.0-4.8); Lymphocytes % (A) 17 %; MCH 29.8 pg (25.0-35.0); MCHC 32.3 g/dL (31.0-37.0); MCV 92.2 fL (80.0-100.0); Mean Platelet Volume 7.9; Monocytes # (A) 0.1 k/uL (0-1.0); Monocytes % (A) 2 %; Neutrophils # (A) 4.5 k/uL (1.3-7.7); Neutrophils % (A) 81 %; Platelet Count 205 k/uL (150-450); RBC 4.46 m/uL (3.80-5.40); RDW 14.3 % (11.5-15.5); WBC 5.6 k/uL (3.8-10.6)
[2018-07-21 06:55] LABS: Albumin 3.7 g/dL (3.5-5.0); Calcium 8.7 mg/dL (8.4-10.2); Potassium 4.6 mmol/L (3.5-5.1); Total Bilirubin 0.8 mg/dL (0.2-1.3); Total Protein 6.4 g/dL (6.3-8.2)
[2018-07-21] MEDS: APIXABAN 2.5 MG TABLET PO SCH ×2 (10:13→21:17)
[2018-07-21] MEDS: DILTIAZEM CD 120 MG CAP.ER.24H PO SCH (10:14)
[2018-07-21] MEDS: LOSARTAN-HCTZ 50-12.5 MG 1 EACH TAB PO SCH (10:14)
[2018-07-21] MEDS: methylPREDNISolone SOD SUCCI 40 MG/ML 1 ML VIAL IV SCH ×2 (10:16→21:17)
[2018-07-21] MEDS: SERTRALINE 25 MG TAB PO SCH (10:18)
[2018-07-21 11:10] LABS: Glucose,Whole Blood 210 mg/dL (75-99)
--- NOTE | 2018-07-21 11:20 | P.PN ---
Subjective Progress Note Date: 07/21/18 This is a 87-year-old female with a known history of atrial fibrillation, congestive heart failure, possible myocardial infarctions, hyperlipidemia, hypertension, obstructive sleep apnea in which she is noncompliant with her machine, COPD and diabetes mellitus. Patient was came into the emergency room after being sent from Dr. Issa's office due to an abnormal EKG. Initial EKG here here in the ER had shown atrial fibrillation with a rapid ventricular response heart rate of 116. Patient admits to not taking her morning pills which did include her Cardizem. Patient also does have been issues with increase in fatigue and shortness of breath. Patient also had been complaining of chest pain and numbness in the left arm and back discomfort. Patient does have chronic back pain and a pinched nerve. Patient denies any new injury to her back. She does report rolling out of her bed accidentally while she was sleeping and landing on the floor. The denies any new injury. Patient has been admitted to the telemetry floor. Cardiology on consult. She is currently on a Cardizem drip. And her Eliquis was restarted. Patient denies any cough, fever, chills or sweats. Denies any nausea or vomiting. Denies any bowel movement changes or urinary symptoms. She is and the daughter was able to give a lot of the patient's history. 07/20/2018 case discussed with cardiology. Patient's heart rate is controlled. She is off of the Cardizem drip. Her oral Cardizem was restarted yesterday. Patient is complaining of lower back pain. Her back pain is worse with taking a deep breath. Patient evaluated by cardiology troponins are negative 3 sets. They felt that patient's chest discomfort where is related to muscle skeletal pain due to her following. TSH levels normal echo shows an EF of 55-60%. Patient did have a drop in her oxygen saturation down to 82% on room air when she got up this morning. A new chest x-ray has been ordered. Chest x-ray on admission was negative. Patient does have a known history of COPD and has been getting breathing treatments. Patient does report having shakiness at times In her arms and her head. 07/21/2018 patient lying in bed comfortably. She still requiring oxygen. She was seen by pulmonary service and started on IV steroids for COPD exacerbation. Marcy is controlling her back pain. X-ray of the lumbar spine had shown extensive degenerative disc disease and mild levoscoliosis. Echo shows an EF of 50-55% with basal inferior LV wall hypokinesis. Discussed with cardiology they will be through to evaluate with patient. Patient is also complaining of oral thrush. Mycelex has been ordered. Objective - Vital Signs Vital signs: Vital Signs Temp 97.7 F 07/21/18 08:20 Pulse 102 H 07/21/18 08:48 Resp 18 07/21/18 08:48 BP 123/66 07/21/18 08:20 Pulse Ox 86 L 07/21/18 08:20 Intake & Output 07/20/18 07/21/18 07/21/18 18:59 06:59 18:59 Intake Total 942 480 Balance 942 480 Weight 88.5 kg Intake: Oral 942 480 Other: Voiding Method Toilet # Voids 3 1 # Bowel Movements 0 - Exam Head normocephalic Neck supple Lungs diminished bilaterally Heart irregular. A. fib on monitor Abdomen is soft nontender nondistended positive bowel sounds no hepatosplenomegaly Extremities no edema Neuro alert and orientated to 3 - Labs CBC & Chem 7: 07/21/18 06:19 07/21/18 06:19 Labs: Abnormal Lab Results - Last 24 Hours (Table) 07/20/18 07/20/18 07/20/18 Range/Units 11:29 16:31 20:43 Lymphocytes # (1.0-4.8) k/uL Chloride (98-107) mmol/L Carbon Dioxide (22-30) mmol/L BUN (7-17) mg/dL Glucose (74-99) mg/dL POC Glucose (mg/dL) 143 H 139 H 131 H (75-99) mg/dL AST (14-36) U/L ALT (9-52) U/L 07/21/18 07/21/18 07/21/18 Range/Units 06:13 06:19 06:19 Lymphocytes # 0.9 L (1.0-4.8) k/uL Chloride 96 L (98-107) mmol/L Carbon Dioxide 36 H (22-30) mmol/L BUN 30 H (7-17) mg/dL Glucose 263 H (74-99) mg/dL POC Glucose (mg/dL) 240 H (75-99) mg/dL AST 63 H (14-36) U/L ALT 59 H (9-52) U/L 07/21/18 Range/Units 11:07 Lymphocytes # (1.0-4.8) k/uL Chloride (98-107) mmol/L Carbon Dioxide (22-30) mmol/L BUN (7-17) mg/dL Glucose (74-99) mg/dL POC Glucose (mg/dL) 210 H (75-99) mg/dL AST (14-36) U/L ALT (9-52) U/L Assessment and Plan Assessment: 1. Atrial fibrillation with rapid ventricular response. Patient has a known history of chronic persistent atrial fibrillation. Patient seen by cardiology. Heart rate is controlled. She is switched over to oral Cardizem. And will continue Eliquis for anticoagulation 2. History of diabetes mellitus type 2: Hold metformin during hospitalization, add sliding scale check coverage. A1c 6.7 3. Hyperlipidemia 4. Essential hypertension 5. Obstructive sleep apnea noncompliant with CPAP machine. Discussed importance of patient regarding using CPAP 6. Acute COPD exacerbation: Patient started on IV steroids per pulmonary service. Change her nebulizer treatments to 4 times a day 7. Chest pain and back pain: Likely musculoskeletal. Patient has had falls. Troponins 3 sets. Patient seen and evaluated by cardiology. 8. Acute hypoxic respiratory failure. Oxygen saturation had dropped 82% on room air. Likely related to COPD exacerbation. Repeat chest x-rays negative for pneumonia 9. Chronic lumbar back pain further workup will be conducted in the outpatient setting. Lumbar spine x-ray has shown extensive degenerative disc disease with mild levoscoliosis 10. Oral thrush we'll give Mycelex suraj Consult physical therapy GI prophylaxis Protonix and DVT prophylaxis Eliquis I performed an examination of the patient and discussed their management with the physician [employer]. I have reviewed the Physician [employer]'s notes and agree with the documented findings and plan of care
[2018-07-21] MEDS: IPRATROPIUM-ALBUTEROL 3 ML NEB INHALATION SCH ×3 (11:43→21:00)
--- NOTE | 2018-07-21 11:58 | P.PN ---
Subjective Progress Note Date: 07/21/18 This is a pleasant 87-year-old female patient who was admitted to the hospital with full. She was experiencing chest discomfort but it was atypical. It was musculoskeletal. The cardiac workup overall came in to be unremarkable. She is known to have chronic persistent atrial fibrillation. On follow-up with her today, 07/21/2018, she is doing and feeling better. The heart rate is a still on the higher side and because of that I would increase the dose of Cardizem to 180 mg by mouth daily. From the cardiovascular standpoint of view, the patient can be transferred out of the selective unit. Objective - Vital Signs Vital signs: Vital Signs Temp 97.7 F 07/21/18 08:20 Pulse 96 07/21/18 11:55 Resp 18 07/21/18 08:48 BP 123/66 07/21/18 08:20 Pulse Ox 86 L 07/21/18 08:20 Intake & Output 07/20/18 07/21/18 07/21/18 18:59 06:59 18:59 Intake Total 942 480 Balance 942 480 Weight 88.5 kg Intake: Oral 942 480 Other: Voiding Method Toilet # Voids 3 1 # Bowel Movements 0 - Constitutional General appearance: Present: no acute distress - Respiratory Respiratory: bilateral: CTA - Cardiovascular Rhythm: irregularly irregular Heart sounds: normal: S1, S2 - Labs CBC & Chem 7: 07/21/18 06:19 07/21/18 06:19 Labs: Abnormal Lab Results - Last 24 Hours (Table) 07/20/18 07/20/18 07/21/18 Range/Units 16:31 20:43 06:13 Lymphocytes # (1.0-4.8) k/uL Chloride (98-107) mmol/L Carbon Dioxide (22-30) mmol/L BUN (7-17) mg/dL Glucose (74-99) mg/dL POC Glucose (mg/dL) 139 H 131 H 240 H (75-99) mg/dL AST (14-36) U/L ALT (9-52) U/L 07/21/18 07/21/18 07/21/18 Range/Units 06:19 06:19 11:07 Lymphocytes # 0.9 L (1.0-4.8) k/uL Chloride 96 L (98-107) mmol/L Carbon Dioxide 36 H (22-30) mmol/L BUN 30 H (7-17) mg/dL Glucose 263 H (74-99) mg/dL POC Glucose (mg/dL) 210 H (75-99) mg/dL AST 63 H (14-36) U/L ALT 59 H (9-52) U/L Assessment and Plan Assessment: Assessment #1 status post fall #2 atypical chest discomfort #3 chronic persistent atrial fibrillation #4 multiple comorbid conditions Plan #1 increase the dose of Cardizem #2 continue the current medical regimen #3 the patient can be transferred out of the selective unit
[2018-07-21] MEDS: CLOTRIMAZOLE TROCHE 10 MG TROCHE MUCOUS MEM SCH ×3 (12:12→21:17)
[2018-07-21 16:10] LABS: Glucose,Whole Blood 254 mg/dL (75-99)
--- NOTE | 2018-07-21 16:29 | P.PN ---
Subjective Progress Note Date: 07/21/18 Principal diagnosis: Acute COPD exacerbation, acute hypoxic respirator failure, chronic low back pain , severe morbid obesity makes chronic atrial fibrillation hypertension hypertensive cardiovascular disease, acute on chronic systolic heart failure, inferior wall hypokinesia 07/21/2018, patient seen eval reexamined during the rounds clinically has been doing slightly better cough congestion shortness of breath is improved patient remains on steroids antibiotics and breathing treatment tolerating very well labs reviewed medications reviewed 87-year-old female well-known to me one of the regular office patient, patient has a history of the severe COPD has been on bronchodilator therapy, patient also has history of multiple cardiovascular problem issues and issues including chronic atrial fibrillation chronic diastolic heart failure obesity and degenerative joint disease and osteoarthritis patient has been having hip pain and back pain for which was seen by primary care provider noted to have EKG changes sent into the emergency department for further evaluation she does have intermittent dry cough shortness of breath which is slightly worse than before she has been on anticoagulation with oral anticoagulants she has been on antihypertensive agents, patient does not use oxygen at home, patient has declined polysomnogram in the past, she has been on nebulizer therapy which she uses 2-3 times a day, patient has chronic dyspnea on exertion she feels slight worsening now and also feeling more short of breath than baseline, I was asked to evaluate this patient for intermittent hypoxia, she was found to be 92% on 2 L oxygen, review of the data revealed that her chest x-ray at the time of admit revealed a follow-up x-ray failed to reveal any cardiopulmonary active process, her echocardiogram revealed ejection for 50-55% and inferior wall hypokinesia has been noted, no evidence of pulmonary hypertension was noted, her troponin 3 are normal her medications are being continued including her anticoagulation she has been on bronchodilator therapy was seems to be helping Objective - Vital Signs Vital signs: Vital Signs Temp 96.5 F L 07/21/18 12:11 Pulse 90 07/21/18 12:11 Resp 17 07/21/18 12:11 BP 120/65 07/21/18 12:11 Pulse Ox 94 L 07/21/18 12:11 Intake & Output 07/20/18 07/21/18 07/21/18 18:59 06:59 18:59 Intake Total 942 480 Output Total 1 Balance 942 480 -1 Weight 88.5 kg Intake: Oral 942 480 Output: Stool 1 Other: Voiding Method Toilet # Voids 3 1 1 # Bowel Movements 0 - Exam - Constitutional General appearance: cooperative, disheveled, morbidly obese - EENT Eyes: EOMI, PERRLA, poor dentition, normal appearance ENT: hard of hearing Ears: bilateral: normal - Neck Neck: normal ROM Carotids: bilateral: upstroke normal, bruit absent Thyroid: bilateral: normal size - Respiratory Respiratory: bilateral: diminished, wheezing (Fine on forced expiration), negative: dullness, rales, rhonchi - Cardiovascular Rhythm: regular Heart sounds: normal: S1, S2 - Gastrointestinal General gastrointestinal: distended, normal bowel sounds, soft - Neurologic Neurologic: CNII-XII intact - Musculoskeletal Musculoskeletal: gait normal, generalized weakness, strength equal bilaterally - Psychiatric Psychiatric: A&O x's 3, appropriate affect, intact judgment & insight - Labs CBC & Chem 7: 07/21/18 06:19 07/21/18 06:19 Labs: Abnormal Lab Results - Last 24 Hours (Table) 07/20/18 07/20/18 07/21/18 Range/Units 16:31 20:43 06:13 Lymphocytes # (1.0-4.8) k/uL Chloride (98-107) mmol/L Carbon Dioxide (22-30) mmol/L BUN (7-17) mg/dL Glucose (74-99) mg/dL POC Glucose (mg/dL) 139 H 131 H 240 H (75-99) mg/dL AST (14-36) U/L ALT (9-52) U/L 07/21/18 07/21/18 07/21/18 Range/Units 06:19 06:19 11:07 Lymphocytes # 0.9 L (1.0-4.8) k/uL Chloride 96 L (98-107) mmol/L Carbon Dioxide 36 H (22-30) mmol/L BUN 30 H (7-17) mg/dL Glucose 263 H (74-99) mg/dL POC Glucose (mg/dL) 210 H (75-99) mg/dL AST 63 H (14-36) U/L ALT 59 H (9-52) U/L 07/21/18 Range/Units 16:08 Lymphocytes # (1.0-4.8) k/uL Chloride (98-107) mmol/L Carbon Dioxide (22-30) mmol/L BUN (7-17) mg/dL Glucose (74-99) mg/dL POC Glucose (mg/dL) 254 H (75-99) mg/dL AST (14-36) U/L ALT (9-52) U/L Assessment and Plan Assessment: Acute COPD exacerbation Acute hypoxic respiratory failure related to above Low back pain and hip pain with Sciatica-like syndrome Severe morbid obesity Chronic atrial fibrillation Likely sleep disorder breathing and sleep apnea Generalized weakness and medical debility Hypertension hypertensive cardiovascular disease Possible coronary artery disease with inferior wall hypokinesia Plan: Agree with bronchodilator therapy Supplemental oxygen We will do a short course of IV steroids, hopefully next 24 hours patient can be switched to Medrol Dosepak and if cleared by primary service can be discharged home if remains stable Patient will need a sleep study we'll discuss with her further if she is agreeable We'll follow clinical course closely further recommendations pending Time with Patient: Greater than 30
[2018-07-21 21:41] LABS: Glucose,Whole Blood 357 mg/dL (75-99)
[2018-07-22] MEDS: CLOTRIMAZOLE TROCHE 10 MG TROCHE MUCOUS MEM SCH ×5 (00:40→22:28)
[2018-07-22] MEDS: IPRATROPIUM-ALBUTEROL 3 ML NEB INHALATION SCH ×2 (07:42→21:35)
[2018-07-22 07:48] LABS: Glucose,Whole Blood 210 mg/dL (75-99)
[2018-07-22] MEDS: SERTRALINE 25 MG TAB PO SCH (07:50)
[2018-07-22] MEDS: methylPREDNISolone SOD SUCCI 40 MG/ML 1 ML VIAL IV SCH ×2 (07:50→22:28)
[2018-07-22] MEDS: LOSARTAN-HCTZ 50-12.5 MG 1 EACH TAB PO SCH (07:50)
[2018-07-22] MEDS: APIXABAN 2.5 MG TABLET PO SCH ×2 (07:50→22:28)
[2018-07-22] MEDS: PANTOPRAZOLE 40 MG TABLET PO SCH ×2 (07:50→22:27)
[2018-07-22] MEDS: INSULIN ASPART 100 UNIT/ML 1 ML 10 ML VIAL SQ SCH ×3 (08:04→23:03)
[2018-07-22] MEDS: DILTIAZEM CD 180 MG CAP.ER.24H PO SCH (08:25)
--- NOTE | 2018-07-22 08:50 | P.PN ---
Subjective Progress Note Date: 07/22/18 Principal diagnosis: Acute COPD exacerbation, acute hypoxic respirator failure, chronic low back pain , severe morbid obesity makes chronic atrial fibrillation hypertension hypertensive cardiovascular disease, acute on chronic systolic heart failure, inferior wall hypokinesia 07/22/2018, patient seen and evaluated examined during the rounds clinically patient has been doing slightly better, chronic back pain and stable, labs reviewed medications reviewed patient is being planned for possible discharge in next 24-48 hours 07/21/2018, patient seen eval reexamined during the rounds clinically has been doing slightly better cough congestion shortness of breath is improved patient remains on steroids antibiotics and breathing treatment tolerating very well labs reviewed medications reviewed 87-year-old female well-known to me one of the regular office patient, patient has a history of the severe COPD has been on bronchodilator therapy, patient also has history of multiple cardiovascular problem issues and issues including chronic atrial fibrillation chronic diastolic heart failure obesity and degenerative joint disease and osteoarthritis patient has been having hip pain and back pain for which was seen by primary care provider noted to have EKG changes sent into the emergency department for further evaluation she does have intermittent dry cough shortness of breath which is slightly worse than before she has been on anticoagulation with oral anticoagulants she has been on antihypertensive agents, patient does not use oxygen at home, patient has declined polysomnogram in the past, she has been on nebulizer therapy which she uses 2-3 times a day, patient has chronic dyspnea on exertion she feels slight worsening now and also feeling more short of breath than baseline, I was asked to evaluate this patient for intermittent hypoxia, she was found to be 92% on 2 L oxygen, review of the data revealed that her chest x-ray at the time of admit revealed a follow-up x-ray failed to reveal any cardiopulmonary active process, her echocardiogram revealed ejection for 50-55% and inferior wall hypokinesia has been noted, no evidence of pulmonary hypertension was noted, her troponin 3 are normal her medications are being continued including her anticoagulation she has been on bronchodilator therapy was seems to be helping Objective - Vital Signs Vital signs: Vital Signs Temp 97.0 F L 07/22/18 05:45 Pulse 92 07/22/18 07:55 Resp 20 07/22/18 05:45 BP 116/69 07/22/18 05:45 Pulse Ox 99 07/22/18 05:45 Intake & Output 07/21/18 07/22/1807/22/19 18:59 06:59 18:59 Intake Total 240 120 Output Total 1 0 Balance 239 120 Intake: Oral 240 120 Output: Stool 1 0 Other: Voiding Method Toilet # Voids 1 2 - Exam - Constitutional General appearance: cooperative, disheveled, morbidly obese - EENT Eyes: EOMI, PERRLA, poor dentition, normal appearance ENT: hard of hearing Ears: bilateral: normal - Neck Neck: normal ROM Carotids: bilateral: upstroke normal, bruit absent Thyroid: bilateral: normal size - Respiratory Respiratory: bilateral: diminished, wheezing (Fine on forced expiration), negative: dullness, rales, rhonchi - Cardiovascular Rhythm: regular Heart sounds: normal: S1, S2 - Gastrointestinal General gastrointestinal: distended, normal bowel sounds, soft - Neurologic Neurologic: CNII-XII intact - Musculoskeletal Musculoskeletal: gait normal, generalized weakness, strength equal bilaterally - Psychiatric Psychiatric: A&O x's 3, appropriate affect, intact judgment & insight - Labs CBC & Chem 7: 07/21/18 06:19 07/21/18 06:19 Labs: Abnormal Lab Results - Last 24 Hours (Table) 07/21/18 07/21/18 07/21/18 Range/Units 11:07 16:08 21:30 POC Glucose (mg/dL) 210 H 254 H 357 H (75-99) mg/dL 07/22/18 Range/Units 07:42 POC Glucose (mg/dL) 210 H (75-99) mg/dL Assessment and Plan Assessment: Acute COPD exacerbation Acute hypoxic respiratory failure related to above Low back pain and hip pain with Sciatica-like syndrome Severe morbid obesity Chronic atrial fibrillation with controlled went to a rate Likely sleep disorder breathing and sleep apnea Generalized weakness and medical debility Hypertension hypertensive cardiovascular disease Possible coronary artery disease with inferior wall hypokinesia Plan: Agree with bronchodilator therapy Supplemental oxygen We will do a short course of IV steroids, hopefully next 24 hours patient can be switched to Medrol Dosepak and if cleared by primary service can be discharged home if remains stable Patient will need a sleep study we'll discuss with her further if she is agreeable We'll follow clinical course closely further recommendations pending Time with Patient: Greater than 30
[2018-07-22] MEDS: HYDROcodone/APAP 7.5-325MG 1 EACH TAB PO PRN (11:15)
[2018-07-22 12:18] LABS: Glucose,Whole Blood 369 mg/dL (75-99)
[2018-07-22 18:47] LABS: Glucose,Whole Blood 314 mg/dL (75-99)
[2018-07-22 23:04] LABS: Glucose,Whole Blood 210 mg/dL (75-99)
[2018-07-23] MEDS: CLOTRIMAZOLE TROCHE 10 MG TROCHE MUCOUS MEM SCH ×6 (01:07→23:28)
[2018-07-23 03:06] LABS: Basophils % (A) 0 %; Eosinophils % (A) 0 %; HCT 40.3 % (34.0-46.0); HGB 12.5 gm/dL (11.4-16.0); Hypochromasia Moderate; Lymphocytes # (A) 0.6 k/uL (1.0-4.8); Lymphocytes % (A) 6 %; MCH 28.9 pg (25.0-35.0); MCHC 31.1 g/dL (31.0-37.0); MCV 93.1 fL (80.0-100.0); Mean Platelet Volume 7.9; Monocytes # (A) 0.3 k/uL (0-1.0); Monocytes % (A) 2 %; Neutrophils # (A) 9.9 k/uL (1.3-7.7); Neutrophils % (A) 91 %; Platelet Count 238 k/uL (150-450); RBC 4.33 m/uL (3.80-5.40); RDW 14.3 % (11.5-15.5); WBC 10.8 k/uL (3.8-10.6)
[2018-07-23 07:41] LABS: Glucose,Whole Blood 196 mg/dL (75-99)
[2018-07-23] MEDS: methylPREDNISolone SOD SUCCI 40 MG/ML 1 ML VIAL IV SCH (08:08)
[2018-07-23] MEDS: SERTRALINE 25 MG TAB PO SCH (08:08)
[2018-07-23] MEDS: LOSARTAN-HCTZ 50-12.5 MG 1 EACH TAB PO SCH (08:08)
[2018-07-23] MEDS: DILTIAZEM CD 180 MG CAP.ER.24H PO SCH (08:08)
[2018-07-23] MEDS: APIXABAN 2.5 MG TABLET PO SCH ×2 (08:08→20:58)
[2018-07-23] MEDS: PANTOPRAZOLE 40 MG TABLET PO SCH ×2 (08:08→18:14)
[2018-07-23] MEDS: INSULIN ASPART 100 UNIT/ML 1 ML 10 ML VIAL SQ SCH ×4 (08:09→20:58)
[2018-07-23] MEDS: HYDROcodone/APAP 7.5-325MG 1 EACH TAB PO PRN (08:14)
[2018-07-23 08:31] LABS: Basophils % (A) 0 %; Eosinophils % (A) 0 %; HCT 41.2 % (34.0-46.0); HGB 12.9 gm/dL (11.4-16.0); Hypochromasia Slight; Lymphocytes # (A) 0.8 k/uL (1.0-4.8); Lymphocytes % (A) 7 %; MCH 28.9 pg (25.0-35.0); MCHC 31.2 g/dL (31.0-37.0); MCV 92.6 fL (80.0-100.0); Mean Platelet Volume 7.6; Monocytes # (A) 0.3 k/uL (0-1.0); Monocytes % (A) 2 %; Neutrophils % (A) 91 %; Platelet Count 227 k/uL (150-450); RBC 4.45 m/uL (3.80-5.40); RDW 14.3 % (11.5-15.5); WBC 12.1 k/uL (3.8-10.6)
[2018-07-23] MEDS: IPRATROPIUM-ALBUTEROL 3 ML NEB INHALATION SCH ×4 (08:38→19:49)
[2018-07-23 08:44] LABS: Albumin 3.6 g/dL (3.5-5.0); Potassium 4.4 mmol/L (3.5-5.1); Total Bilirubin 0.6 mg/dL (0.2-1.3); Total Protein 6.2 g/dL (6.3-8.2)
--- NOTE | 2018-07-23 10:12 | P.PN ---
Subjective Progress Note Date: 07/23/18 Principal diagnosis: Acute COPD exacerbation, acute hypoxic respirator failure, chronic low back pain , severe morbid obesity makes chronic atrial fibrillation hypertension hypertensive cardiovascular disease, acute on chronic systolic heart failure, inferior wall hypokinesia 07/23/2018, patient seen eval reexamined during the rounds clinically patient has been doing well awake and alert breathing, comfortably cuff congestion shortness breath has improved, patient remains on IV stride we will change it to oral prednisone agree with discharge planning in next 24 hours, labs reviewed medications reviewed care plan discussed with the staff at length 07/22/2018, patient seen and evaluated examined during the rounds clinically patient has been doing slightly better, chronic back pain and stable, labs reviewed medications reviewed patient is being planned for possible discharge in next 24-48 hours 07/21/2018, patient seen eval reexamined during the rounds clinically has been doing slightly better cough congestion shortness of breath is improved patient remains on steroids antibiotics and breathing treatment tolerating very well labs reviewed medications reviewed 87-year-old female well-known to me one of the regular office patient, patient has a history of the severe COPD has been on bronchodilator therapy, patient also has history of multiple cardiovascular problem issues and issues including chronic atrial fibrillation chronic diastolic heart failure obesity and degenerative joint disease and osteoarthritis patient has been having hip pain and back pain for which was seen by primary care provider noted to have EKG changes sent into the emergency department for further evaluation she does have intermittent dry cough shortness of breath which is slightly worse than before she has been on anticoagulation with oral anticoagulants she has been on antihypertensive agents, patient does not use oxygen at home, patient has declined polysomnogram in the past, she has been on nebulizer therapy which she uses 2-3 times a day, patient has chronic dyspnea on exertion she feels slight worsening now and also feeling more short of breath than baseline, I was asked to evaluate this patient for intermittent hypoxia, she was found to be 92% on 2 L oxygen, review of the data revealed that her chest x-ray at the time of admit revealed a follow-up x-ray failed to reveal any cardiopulmonary active process, her echocardiogram revealed ejection for 50-55% and inferior wall hypokinesia has been noted, no evidence of pulmonary hypertension was noted, her troponin 3 are normal her medications are being continued including her anticoagulation she has been on bronchodilator therapy was seems to be helping Objective - Vital Signs Vital signs: Vital Signs Temp 97.6 F 07/23/18 05:30 Pulse 90 07/23/18 08:47 Resp 20 07/23/18 08:00 BP 130/79 07/23/18 05:30 Pulse Ox 98 07/23/18 05:30 Intake & Output 07/22/18 07/23/18 07/23/18 18:59 06:59 18:59 Intake Total 600 Output Total 0 Balance 600 Intake: Oral 600 Output: Stool 0 Other: Voiding Method Toilet Toilet # Voids 2 - Exam - Constitutional General appearance: cooperative, disheveled, morbidly obese - EENT Eyes: EOMI, PERRLA, poor dentition, normal appearance ENT: hard of hearing Ears: bilateral: normal - Neck Neck: normal ROM Carotids: bilateral: upstroke normal, bruit absent Thyroid: bilateral: normal size - Respiratory Respiratory: bilateral: diminished, wheezing (Fine on forced expiration), negative: dullness, rales, rhonchi - Cardiovascular Rhythm: regular Heart sounds: normal: S1, S2 - Gastrointestinal General gastrointestinal: distended, normal bowel sounds, soft - Neurologic Neurologic: CNII-XII intact - Musculoskeletal Musculoskeletal: gait normal, generalized weakness, strength equal bilaterally - Psychiatric Psychiatric: A&O x's 3, appropriate affect, intact judgment & insight - Labs CBC & Chem 7: 07/23/18 07:58 07/23/18 07:58 Labs: Abnormal Lab Results - Last 24 Hours (Table) 07/22/18 07/22/18 07/22/18 Range/Units 11:30 17:39 22:53 WBC 10.8 H (3.8-10.6) k/uL Neutrophils # 9.9 H (1.3-7.7) k/uL Lymphocytes # 0.6 L (1.0-4.8) k/uL Carbon Dioxide (22-30) mmol/L BUN (7-17) mg/dL Glucose (74-99) mg/dL POC Glucose (mg/dL) 314 H 210 H (75-99) mg/dL Total Protein (6.3-8.2) g/dL 07/23/18 07/23/18 07/23/18 Range/Units 07:38 07:58 07:58 WBC 12.1 H (3.8-10.6) k/uL Neutrophils # 11.0 H (1.3-7.7) k/uL Lymphocytes # 0.8 L (1.0-4.8) k/uL Carbon Dioxide 39 H (22-30) mmol/L BUN 32 H (7-17) mg/dL Glucose 213 H (74-99) mg/dL POC Glucose (mg/dL) 196 H (75-99) mg/dL Total Protein 6.2 L (6.3-8.2) g/dL Assessment and Plan Assessment: Acute COPD exacerbation Acute hypoxic respiratory failure related to above Low back pain and hip pain with Sciatica-like syndrome Severe morbid obesity Chronic atrial fibrillation with controlled went to a rate Likely sleep disorder breathing and sleep apnea Generalized weakness and medical debility Hypertension hypertensive cardiovascular disease Possible coronary artery disease with inferior wall hypokinesia Plan: Agree with bronchodilator therapy Supplemental oxygen We will do a short course of oral steroids 40 mg daily for 5 days Patient will need a sleep study we'll discuss with her further if she is agreeable We'll follow clinical course closely further recommendations pending Time with Patient: Greater than 30
[2018-07-23 11:47] LABS: Albumin 3.7 g/dL (3.5-5.0); Potassium 4.1 mmol/L (3.5-5.1); Total Bilirubin 0.6 mg/dL (0.2-1.3); Total Protein 6.4 g/dL (6.3-8.2)
[2018-07-23 12:31] LABS: Glucose,Whole Blood 193 mg/dL (75-99)
--- NOTE | 2018-07-23 15:18 | P.PN ---
Subjective Progress Note Date: 07/23/18 Date of this progress note is 07/22/2018 This is a 87-year-old female with a known history of atrial fibrillation, congestive heart failure, possible myocardial infarctions, hyperlipidemia, hypertension, obstructive sleep apnea in which she is noncompliant with her machine, COPD and diabetes mellitus. Patient was came into the emergency room after being sent from Dr. Issa's office due to an abnormal EKG. Initial EKG here here in the ER had shown atrial fibrillation with a rapid ventricular response heart rate of 116. Patient admits to not taking her morning pills which did include her Cardizem. Patient also does have been issues with increase in fatigue and shortness of breath. Patient also had been complaining of chest pain and numbness in the left arm and back discomfort. Patient does have chronic back pain and a pinched nerve. Patient denies any new injury to her back. She does report rolling out of her bed accidentally while she was sleeping and landing on the floor. The denies any new injury. Patient has been admitted to the telemetry floor. Cardiology on consult. She is currently on a Cardizem drip. And her Eliquis was restarted. Patient denies any cough, fever, chills or sweats. Denies any nausea or vomiting. Denies any bowel movement changes or urinary symptoms. She is and the daughter was able to give a lot of the patient's history. 07/20/2018 case discussed with cardiology. Patient's heart rate is controlled. She is off of the Cardizem drip. Her oral Cardizem was restarted yesterday. Patient is complaining of lower back pain. Her back pain is worse with taking a deep breath. Patient evaluated by cardiology troponins are negative 3 sets. They felt that patient's chest discomfort where is related to muscle skeletal pain due to her following. TSH levels normal echo shows an EF of 55-60%. Patient did have a drop in her oxygen saturation down to 82% on room air when she got up this morning. A new chest x-ray has been ordered. Chest x-ray on admission was negative. Patient does have a known history of COPD and has been getting breathing treatments. Patient does report having shakiness at times In her arms and her head. 07/21/2018 patient lying in bed comfortably. She still requiring oxygen. She was seen by pulmonary service and started on IV steroids for COPD exacerbation. [place] is controlling her back pain. X-ray of the lumbar spine had shown extensive degenerative disc disease and mild levoscoliosis. Echo shows an EF of 50-55% with basal inferior LV wall hypokinesis. Discussed with cardiology they will be through to evaluate with patient. Patient is also complaining of oral thrush. Mycelex has been ordered. On 07/22/2018 patient is sitting up at the edge of the bed. She still requiring oxygen. She was seen by pulmonary service and started on IV steroids for COPD exacerbation. [place] is controlling her back pain. X-ray of the lumbar spine had shown extensive degenerative disc disease and mild levoscoliosis. Patient is also complaining of oral thrush. Mycelex has been ordered. On 07/23/2018 patient was seen and examined on the medical floor she is alert and oriented 3 She still requiring oxygen. She was seen by pulmonary service and started on IV steroids for COPD exacerbation. [place] is controlling her back pain. X-ray of the lumbar spine had shown extensive degenerative disc disease and mild levoscoliosis. Patient is also complaining of oral thrush. Mycelex has been ordered. Objective - Vital Signs Vital signs: Vital Signs Temp 97.6 F 07/23/18 05:30 Pulse 92 07/23/18 12:17 Resp 20 07/23/18 08:00 BP 130/79 07/23/18 05:30 Pulse Ox 98 07/23/18 05:30 Intake & Output 07/22/18 07/23/18 07/23/18 18:59 06:59 18:59 Intake Total 600 Output Total 0 Balance 600 Intake: Oral 600 Output: Stool 0 Other: Voiding Method Toilet Toilet # Voids 2 3 - Exam Head normocephalic Neck supple no JVD no goiter Lungs diminished bilaterally Heart irregular. A. fib on monitor,no gallop, no murmur Abdomen is soft nontender nondistended positive bowel sounds no hepatosplenomegaly Extremities no edema Neuro alert and orientated to 3 - Labs CBC & Chem 7: 07/23/18 07:58 07/23/18 07:58 Labs: Abnormal Lab Results - Last 24 Hours (Table) 07/22/18 07/22/18 07/22/18 Range/Units 11:30 11:30 17:39 WBC 10.8 H (3.8-10.6) k/uL Neutrophils # 9.9 H (1.3-7.7) k/uL Lymphocytes # 0.6 L (1.0-4.8) k/uL Chloride 96 L (98-107) mmol/L Carbon Dioxide 37 H (22-30) mmol/L BUN 27 H (7-17) mg/dL Glucose 372 H (74-99) mg/dL POC Glucose (mg/dL) 314 H (75-99) mg/dL Total Protein (6.3-8.2) g/dL 07/22/18 07/23/18 07/23/18 Range/Units 22:53 07:38 07:58 WBC 12.1 H (3.8-10.6) k/uL Neutrophils # 11.0 H (1.3-7.7) k/uL Lymphocytes # 0.8 L (1.0-4.8) k/uL Chloride (98-107) mmol/L Carbon Dioxide (22-30) mmol/L BUN (7-17) mg/dL Glucose (74-99) mg/dL POC Glucose (mg/dL) 210 H 196 H (75-99) mg/dL Total Protein (6.3-8.2) g/dL 07/23/18 07/23/18 Range/Units 07:58 12:27 WBC (3.8-10.6) k/uL Neutrophils # (1.3-7.7) k/uL Lymphocytes # (1.0-4.8) k/uL Chloride (98-107) mmol/L Carbon Dioxide 39 H (22-30) mmol/L BUN 32 H (7-17) mg/dL Glucose 213 H (74-99) mg/dL POC Glucose (mg/dL) 193 H (75-99) mg/dL Total Protein 6.2 L (6.3-8.2) g/dL Assessment and Plan Plan: 1. Atrial fibrillation with rapid ventricular response. Patient has a known history of chronic persistent atrial fibrillation. Patient seen by cardiology. Heart rate is controlled. She is switched over to oral Cardizem. And will continue Eliquis for anticoagulation 2. History of diabetes mellitus type 2: Hold metformin during hospitalization, add sliding scale check coverage. A1c 6.7 3. Hyperlipidemia 4. Essential hypertension 5. Obstructive sleep apnea noncompliant with CPAP machine. Discussed importance of patient regarding using CPAP 6. Acute COPD exacerbation: Patient started on IV steroids per pulmonary service. Change her nebulizer treatments to 4 times a day 7. Chest pain and back pain: Likely musculoskeletal. Patient has had falls. Troponins 3 sets. Patient seen and evaluated by cardiology. 8. Acute hypoxic respiratory failure. Oxygen saturation had dropped 82% on room air. Likely related to COPD exacerbation. Repeat chest x-rays negative for pneumonia 9. Chronic lumbar back pain further workup will be conducted in the outpatient setting. Lumbar spine x-ray has shown extensive degenerative disc disease with mild levoscoliosis 10. Oral thrush we'll give Mycelex suraj Consult physical therapy GI prophylaxis Protonix and DVT prophylaxis Eliquis
[2018-07-23 17:53] LABS: Glucose,Whole Blood 234 mg/dL (75-99)
[2018-07-23 20:27] LABS: Glucose,Whole Blood 230 mg/dL (75-99)
[2018-07-24] MEDS: CLOTRIMAZOLE TROCHE 10 MG TROCHE MUCOUS MEM SCH ×2 (05:50→10:40)
[2018-07-24 07:07] LABS: Glucose,Whole Blood 122 mg/dL (75-99)
[2018-07-24] MEDS: IPRATROPIUM-ALBUTEROL 3 ML NEB INHALATION SCH ×2 (07:08→11:02)
[2018-07-24] MEDS: INSULIN ASPART 100 UNIT/ML 1 ML 10 ML VIAL SQ SCH ×2 (07:16→12:29)
[2018-07-24] MEDS: APIXABAN 2.5 MG TABLET PO SCH (07:20)
[2018-07-24] MEDS: LOSARTAN-HCTZ 50-12.5 MG 1 EACH TAB PO SCH (07:21)
[2018-07-24] MEDS: SERTRALINE 25 MG TAB PO SCH (07:21)
[2018-07-24] MEDS: PANTOPRAZOLE 40 MG TABLET PO SCH (07:21)
[2018-07-24] MEDS: DILTIAZEM CD 180 MG CAP.ER.24H PO SCH (07:23)
[2018-07-24] MEDS: HYDROcodone/APAP 7.5-325MG 1 EACH TAB PO PRN (08:12)
[2018-07-24] MEDS ORDERED: predniSONE 20 MG TAB PO SCH (09:00)
[2018-07-24 10:52] VITALS: BMI 42.2
[2018-07-24 12:20] LABS: Glucose,Whole Blood 137 mg/dL (75-99)
--- NOTE | 2018-07-24 13:44 | P.DS ---
Providers Date of admission: 07/18/18 21:11 Expected date of discharge: 07/24/18 Attending physician: Kareem Issa Consults: 07/18/18 20:46 Consult Physician Stat Consulting Provider: Casey Bess Consult Reason/Comments: afib with RVR Do you want consulting provider notified?: Yes 07/20/18 13:40 Consult Physician Routine Consulting Provider: Donell Aviles Consult Reason/Comments: hypoxia Do you want consulting provider notified?: Yes Primary care physician: Kareem [facility] Course: Discharge diagnosis 1. Atrial fibrillation with rapid ventricular response. Patient has a known history of chronic persistent atrial fibrillation. Patient seen by cardiology. Heart rate is controlled. She is switched over to oral Cardizem. And will continue Eliquis for anticoagulation. Patient's Cardizem has been increased per cardiology to 180 by mouth daily. Patient remains on eliquis for anticoagulation 2. History of diabetes mellitus type 2: Hold metformin during hospitalization, add sliding scale check coverage. A1c 6.7. Metformin will be resumed upon discharge 3. Hyperlipidemia 4. Essential hypertension 5. Obstructive sleep apnea noncompliant with CPAP machine. Discussed importance of patient regarding using CPAP 6. Acute COPD exacerbation: Patient started on IV steroids per pulmonary service. Change her nebulizer treatments to 4 times a day 7. Chest pain and back pain: Likely musculoskeletal. Patient has had falls. Troponins 3 sets. Patient seen and evaluated by cardiology. 8. Acute hypoxic respiratory failure. Oxygen saturation had dropped 82% on room air. Likely related to COPD exacerbation. Repeat chest x-rays negative for pneumonia. Patient will be DC'd on prednisone taper along with home O2. 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 Chronic lumbar back pain further workup will be conducted in the outpatient setting. Lumbar spine x-ray has shown extensive degenerative disc disease with mild levoscoliosis 10. Oral thrush we'll give [facility] course This is a 87-year-old female with a known history of atrial fibrillation, congestive heart failure, possible myocardial infarctions, hyperlipidemia, hypertension, obstructive sleep apnea in which she is noncompliant with her machine, COPD and diabetes mellitus. Patient was came into the emergency room after being sent from Dr. Issa's office due to an abnormal EKG. Initial EKG here here in the ER had shown atrial fibrillation with a rapid ventricular response heart rate of 116. Patient admits to not taking her morning pills which did include her Cardizem. Patient also does have been issues with increase in fatigue and shortness of breath. Patient also had been complaining of chest pain and numbness in the left arm and back discomfort. Patient does have chronic back pain and a pinched nerve. Patient denies any new injury to her back. She does report rolling out of her bed accidentally while she was sleeping and landing on the floor. The denies any new injury. Patient has been admitted to the telemetry floor. Cardiology on consult. She is currently on a Cardizem drip. And her Eliquis was restarted. Patient denies any cough, fever, chills or sweats. Denies any nausea or vomiting. Denies any bowel movement changes or urinary symptoms. She is and the daughter was able to give a lot of the patient's history. 07/20/2018 case discussed with cardiology. Patient's heart rate is controlled. She is off of the Cardizem drip. Her oral Cardizem was restarted yesterday. Patient is complaining of lower back pain. Her back pain is worse with taking a deep breath. Patient evaluated by cardiology troponins are negative 3 sets. They felt that patient's chest discomfort where is related to muscle skeletal pain due to her following. TSH levels normal echo shows an EF of 55-60%. Patient did have a drop in her oxygen saturation down to 82% on room air when she got up this morning. A new chest x-ray has been ordered. Chest x-ray on admission was negative. Patient does have a known history of COPD and has been getting breathing treatments. Patient does report having shakiness at times In her arms and her head. 07/21/2018 patient lying in bed comfortably. She still requiring oxygen. She was seen by pulmonary service and started on IV steroids for COPD exacerbation. [place] is controlling her back pain. X-ray of the lumbar spine had shown extensive degenerative disc disease and mild levoscoliosis. Echo shows an EF of 50-55% with basal inferior LV wall hypokinesis. Discussed with cardiology they will be through to evaluate with patient. Patient is also complaining of oral thrush. Mycelex has been ordered. On 07/22/2018 patient is sitting up at the edge of the bed. She still requiring oxygen. She was seen by pulmonary service and started on IV steroids for COPD exacerbation. [place] is controlling her back pain. X-ray of the lumbar spine had shown extensive degenerative disc disease and mild levoscoliosis. Patient is also complaining of oral thrush. Mycelex has been ordered. On 07/23/2018 patient was seen and examined on the medical floor she is alert and oriented 3 She still requiring oxygen. She was seen by pulmonary service and started on IV steroids for COPD exacerbation. [place] is controlling her back pain. X-ray of the lumbar spine had shown extensive degenerative disc disease and mild levoscoliosis. Patient is also complaining of oral thrush. Mycelex has been ordered. On 07/24/2018 patient's alert and oriented 3. Patient states she feels ready to go home. Patient was evaluated and is requiring home O2 2 L. Has been arranged with [facility]. At this time patient denies chest pain or shortness of breath. Patient denies nausea vomiting or diarrhea. Patient denies any urinary burning or frequency. Patient to follow-up with consulting providers and PCP I performed an examination of the patient and discussed their management with the Nurse Practitioner. I have reviewed the Nurse Practitioner's notes and agree with the documented findings and plan of care Patient Condition at Discharge: Stable Plan - Discharge Summary Discharge Rx Participant: No New Discharge Prescriptions: New predniSONE 10 mg PO DIRECTED #30 tab Diltiazem Cd [Cardizem CD] 180 mg PO DAILY #30 cap.er.24h Continue Omeprazole [PriLOSEC] 20 mg PO DAILY Sertraline [Zoloft] 25 mg PO DAILY Apixaban [Eliquis] 2.5 mg PO BID Losartan/Hydrochlorothiazide [Hyzaar 100-25 Tablet] 1 tab PO DAILY HYDROcodone/APAP 7.5-325MG [[place] 7.5-325] 1 tab PO TID PRN #9 tab PRN Reason: Pain metFORMIN HCL 850 mg PO DAILY Discontinued Diltiazem Oral [Cardizem*] 30 mg PO TID Discharge Medication List Omeprazole [PriLOSEC] 20 mg PO DAILY 06/02/15 [History] Sertraline [Zoloft] 25 mg PO DAILY 10/18/15 [History] Apixaban [Eliquis] 2.5 mg PO BID 02/14/16 [History] Losartan/Hydrochlorothiazide [Hyzaar 100-25 Tablet] 1 tab PO DAILY 09/02/16 [ History] HYDROcodone/APAP 7.5-325MG [[place] 7.5-325] 1 tab PO TID PRN #9 tab 01/02/18 [Rx] metFORMIN HCL 850 mg PO DAILY 07/18/18 [History] Diltiazem Cd [Cardizem CD] 180 mg PO DAILY #30 cap.er.24h 07/24/18 [Rx] predniSONE 10 mg PO DIRECTED #30 tab 07/24/18 [Rx] Follow up Appointment(s)/Referral(s): Kareem Issa MD [Primary Care Provider] - 07/28/18 11:30 am (Tuesday) Garland Patterson MD [STAFF PHYSICIAN] - 07/25/18 2:00 pm (Please keep previous follow up appointment.) Patient Instructions/Handouts: A-fib (Atrial Fibrillation) (DC) Activity/Diet/Wound Care/Special Instructions: Outpatient testing for lower back pain with Dr. Issa. Patient will be DC'd home on home O2 Discharge Disposition: HOME SELF-CARE
[2018-07-24 14:41] VITALS: BP 117/75; PULSE 104; RESP 20; TEMP 98.6
== END 2018-07-24 15:35 | disposition home health service (06) | DRG 308 ==
LOC: EC 17:02 → 3SCARD 21:11 → 4MS4W 07-21 23:02
PROVIDERS: ADMIT Internal Medicine; ATTEND Internal Medicine
DX: I48.1 Persistent atrial fibrillation (principal); J96.01 Acute respiratory failure with hypoxia; I50.43 Acute on chronic combined systolic (congestive) and diastolic (congestive) heart failure; B37.0 Candidal stomatitis; J44.1 Chronic obstructive pulmonary disease with (acute) exacerbation; Z68.41 Body mass index [BMI] 40.0-44.9, adult; E03.9 Hypothyroidism, unspecified; K21.9 Gastro-esophageal reflux disease without esophagitis; G47.33 Obstructive sleep apnea (adult) (pediatric); E66.01 Morbid (severe) obesity due to excess calories; E78.5 Hyperlipidemia, unspecified; F32.9 Major depressive disorder, single episode, unspecified; F41.9 Anxiety disorder, unspecified; M51.36 Other intervertebral disc degeneration, lumbar region; M19.90 Unspecified osteoarthritis, unspecified site; M41.9 Scoliosis, unspecified; I11.0 Hypertensive heart disease with heart failure; I27.20 Pulmonary hypertension, unspecified; R53.81 Other malaise; R07.89 Other chest pain; R79.89 Other specified abnormal findings of blood chemistry; Z96.659 Presence of unspecified artificial knee joint; Z91.19 Patient's noncompliance with other medical treatment and regimen; Z99.81 Dependence on supplemental oxygen; Z79.84 Long term (current) use of oral hypoglycemic drugs; Z79.01 Long term (current) use of anticoagulants; Z79.899 Other long term (current) drug therapy; Z99.89 Dependence on other enabling machines and devices; Z98.42 Cataract extraction status, left eye; Z98.41 Cataract extraction status, right eye; Z87.891 Personal history of nicotine dependence; Z82.49 Family history of ischemic heart disease and other diseases of the circulatory system; Z82.5 Family history of asthma and other chronic lower respiratory diseases; Z83.3 Family history of diabetes mellitus; Z80.9 Family history of malignant neoplasm, unspecified; Z86.73 Personal history of transient ischemic attack (TIA), and cerebral infarction without residual deficits; Z90.710 Acquired absence of both cervix and uterus; Z91.81 History of falling; Z88.6 Allergy status to analgesic agent
CPT/HCPCS: 36415; 71046; 72100; 80053; 82550; 82553; 83036; 83735; 84443; 84484; 85025; 85379; 85610; 85730; 93005; 93306; 94640; 94760; 96361; 96374; 99291

== ENCOUNTER → 2018-09-12 | Outpatient (CLI) | payer MEDICARE, OTHER ==
[2018-09-12 10:53] VITALS: BP 104/60; RESP 18
--- NOTE | 2018-09-12 11:43 | P.PAINCN ---
History of Present Illness - Reason for Consult Consult date: 09/12/18 - Chief Complaint Intractable low back pain and leg pain - History of Present Illness This is a very pleasant 88-year-old woman with a long-standing history of low back pain and leg pain. She reports that she has seen physicians for this for years. She does have an MRI from 2017 which demonstrates a disc herniation at L3 4 as well as L5-S1. She also has degenerative arthritis and central canal stenosis. She has undergone injection therapy approximately 5-10 years ago and reports that this nearly completely relieved all of her symptoms. She is interested in pursuing this again. She has been through physical therapy and reports very little benefit from this. She has also tried conservative modalities such as rest and taking Tylenol. She does have significant pulmonary problems including oxygen dependence which make this a dangerous venture for opioid therapy. Past Medical History Past Medical History: Atrial Fibrillation, Chest Pain / Angina, Heart Failure, Diabetes Mellitus, GERD/Reflux, Hyperlipidemia, Hypertension, Osteoarthritis (OA), Respiratory Disorder, Sleep Apnea/CPAP/BIPAP, Thyroid Disorder Additional Past Medical History / Comment(s): DDD WITH BACK PAIN, OCCASIONAL SWELLING IN FEET-DENIES ANY NOW., USES C-PAP MACHINE. History of Any Multi-Drug Resistant Organisms: None Reported Past Surgical History: Cholecystectomy, Hysterectomy, Joint Replacement Additional Past Surgical History / Comment(s): EGD for gastric reflux. Excision of lipomas. bilateral cataracts, total knee. Past Anesthesia/Blood Transfusion Reactions: No Reported Reaction Past Psychological History: Anxiety, Depression Smoking Status: Former smoker Past Alcohol Use History: None Reported Additional Past Alcohol Use History / Comment(s): SMOKED 3 PPD. STARTED SMOKING AGE 15, QUIT 35 YEARS AGO Past Drug Use History: None Reported Additional Drug Use History / Comment(s): . - Past Family History Brother(s) Family Medical History: Congestive Heart Failure (CHF), COPD, Coronary Artery Disease (CAD), Diabetes Mellitus Daughter(s) Additional Family Medical History / Comment(s): One from MVA Son(s) Family Medical History: Diabetes Mellitus, Hyperlipidemia, Hypertension Sister(s) Family Medical History: Cancer Mother Family Medical History: Dementia Father Family Medical History: COPD Additional Family Medical History / Comment(s): EMPHYSEMA. Medications and Allergies Home Medications Medication Instructions Recorded Confirmed Type Omeprazole [PriLOSEC] 20 mg PO DAILY 12/07/15 03/19/19 History Sertraline [Zoloft] 25 mg PO DAILY 10/18/15 09/12/18 History Apixaban [Eliquis] 2.5 mg PO BID 02/14/16 09/12/18 History Losartan/Hydrochlorothiazide 1 tab PO DAILY 09/02/16 09/12/18 History [Hyzaar 100-25 Tablet] HYDROcodone/APAP 7.5-325MG [[place] 1 tab PO TID PRN #9 tab 01/02/18 09/12/18 Rx 7.5-325] metFORMIN HCL 850 mg PO DAILY 07/18/18 09/12/18 History Diltiazem Cd [Cardizem CD] 180 mg PO DAILY #30 cap.er.24h 07/24/18 09/12/18 Rx Allergies Allergy/AdvReac Type Severity Reaction Status Date / Time aspirin AdvReac SEE Verified 09/12/18 10:34 COMMENTS Physical Exam Vitals: Vital Signs Resp BP Pulse Ox 09/12/18 10:38 18 104/60 96 Intake and Output 09/11/18 09/12/18 09/12/18 22:59 06:59 14:59 Other: Weight 88.904 kg General: The patient is alert and oriented. Patient is not sedated Patient answers all question appropriately. She presents to this appointment with her daughter who helps as a skydiving instructor. Cardiac: Heart is regular in rate and rhythm Respiratory: Clear to auscultation. No audible wheezes. She uses nasal cannula oxygen Abdomen: Soft nontender nondistended. Musculoskeletal: Strength is normal bilaterally. Sensation is normal bilaterally. Straight leg raise is weakly positive bilaterally. She has a difficult time utilizing a straight erect posture. She is very tender to palpation over her sacroiliac joints bilaterally. Neurological: Reflexes are preserved and symmetric bilaterally. Results Comments: MRI of the lumbar spine reveals a herniated disc at L3 4 as well as L5-S1. There is also central canal stenosis and significant arthritis. Assessment and Plan (1) Lumbar radiculopathy, chronic Current Visit: Yes Status: Acute Code(s): M54.16 - RADICULOPATHY, LUMBAR REGION SNOMED Code(s): 089291257 (2) Degenerative lumbar spinal stenosis Narrative/Plan: Plan of Care 1. Medications: I recommended that the patient utilize Tylenol to help with her pain. Given her advanced age as well as tenuous pulmonary condition, I think this is the safest option. 2. Interventions: We will schedule the patient for lumbar epidural steroid injection performed at the L5-S1 interspace. She will need to discontinue her blood thinner prior to this. We will recheck out to her primary care physician to discuss this with them. I have talked with the patient and her daughters regarding the significant risks that exist with starting and stopping anticoagulant therapy including but not limited to blood clots, heart attack, stroke, . 3. Referrals: None 4. Testing: None 5. Follow-up: Lumbar epidural steroid injection L5-S1 Current Visit: Yes Status: Acute Code(s): M48.061 - SPINAL STENOSIS, LUMBAR REGION WITHOUT NEUROGENIC ANDRES SNOMED Code(s): 947712059 PQRS Measure Charge Sheet Measure #130: Documentation of Current Meds in Medical Chart: Patient's medications documented in chart Measure #226: Tobacco Use: Screen & Cessation Intervention: Pt not a tobacco user Measure #111: Pneumonia Vaccination: Pneumococcal vaccine administered or previously received Measure #47: Advance Care Plan: Advance care planning discussed & documented, pt chose/unable to give Measure #412: Opioid Treatment Agreement: No documentation of signed opioid treatment agreement Measure #408: Opioid Therapy Follow-up Evaluation: Patient had NO f/u eval minimum every 3 months during opioid therapy Measure #317: Preventitive Care & Scrn High Bld Press & F/U: Pre-hypertensive or hypertensive BP documented, pt will f/u with PCP Measure #128: Body Mass Index (BMI) Screening & Follow-up: BMI documented ABOVE normal parameters - f/u documented Measure #131: Pain Assessment & Follow-up: Pain positive & plan documented Measure #431: Unhealthy Alcohol Use Preventative Care & Scrn: Patient not identified as an unhealthy alcohol user PQRS Narrative: Smoking Status Former smoker Blood Pressure 104/60 Pain Intensity [Bilateral 10 Lower Back] Scale Used Numeric (1 - 10) Hx Alcohol Use (MH) No Home Medications: Ambulatory Orders Omeprazole [PriLOSEC] 20 mg PO DAILY 06/02/15 Sertraline [Zoloft] 25 mg PO DAILY 10/18/15 Apixaban [Eliquis] 2.5 mg PO BID 02/14/16 Losartan/Hydrochlorothiazide [Hyzaar 100-25 Tablet] 1 tab PO DAILY 09/02/16 HYDROcodone/APAP 7.5-325MG [[place] 7.5-325] 1 tab PO TID PRN #9 tab 01/02/18 metFORMIN HCL 850 mg PO DAILY 07/18/18 Diltiazem Cd [Cardizem CD] 180 mg PO DAILY #30 cap.er.24h 07/24/18
== END | disposition home or self-care (01) ==
LOC: PNWHC3 10:28
PROVIDERS: ATTEND Pain Medicine Pain Medicine
DX: M48.061 Spinal stenosis, lumbar region without neurogenic claudication (principal); M54.16 Radiculopathy, lumbar region; I48.91 Unspecified atrial fibrillation; I11.0 Hypertensive heart disease with heart failure; I50.9 Heart failure, unspecified; K21.9 Gastro-esophageal reflux disease without esophagitis; E78.5 Hyperlipidemia, unspecified; G47.30 Sleep apnea, unspecified; F41.9 Anxiety disorder, unspecified; F32.9 Major depressive disorder, single episode, unspecified; Z99.89 Dependence on other enabling machines and devices; Z90.49 Acquired absence of other specified parts of digestive tract; Z90.710 Acquired absence of both cervix and uterus; Z98.890 Other specified postprocedural states; Z87.891 Personal history of nicotine dependence; Z79.899 Other long term (current) drug therapy; Z79.01 Long term (current) use of anticoagulants; Z79.891 Long term (current) use of opiate analgesic; Z79.84 Long term (current) use of oral hypoglycemic drugs; Z88.6 Allergy status to analgesic agent
CPT/HCPCS: 99211

== ENCOUNTER 2018-09-20 06:30 | Day surgery (SDC) | payer MEDICARE, OTHER ==
[2018-09-14 14:05] VITALS: BMI 28.9
[~2018-09-20 06:30] MED LIST changes: -LACTATED RINGERS 1,000 ML IV SCH; +SODIUM CHLORIDE 0.9% 500 ML 500 ML IV SCH
[2018-09-20 07:18] VITALS: TEMP 97.6
[2018-09-20 07:23] LABS: Glucose,Whole Blood 128 mg/dL (75-99)
--- NOTE | 2018-09-20 07:59 | P.PCN ---
Date of Procedure: 09/20/18 Surgeon: Ld Khan Pathology: none sent Condition: stable Disposition: PACU Description of Procedure: PREOPERATIVE DIAGNOSIS: 1-Lumbar radiculopathy 2- Lumber Degenerative Disc Diseases. POSTOPERATIVE DIAGNOSIS: 1-Lumbar stenosis 2-Severe Lumbar Degenerative Disc Diseases PROCEDURE 1. Lumbar epidural steroid injection under fluoroscopic guidance at the L4-5 level. 2. Lumbar epidurogram. ANESTHESIA: Local with 1% lidocaine, no IV sedation was provided as per patient's request EBL: Minimal PROCEDURE INDICATION: The patient with low back pain and radiculitis symptoms unresponsive to conservative treatment. Fluoroscopy was used to optimize visualization of the needle placement and to maximize safety. The patient has a history of diabetes and she was on medical was for history of A. fib. PROCEDURE DESCRIPTION / TECHNIQUE: The patient was seen and identified in the preoperative area. Risks, benefits, complications including but not limited to infections ,bleeding ,allergic reaction to the medications ,nerve damage and not complete pain relief , and alternatives were discussed with the patient. The patient agreed to proceed with the procedure and signed the consent. IV was started, and vital signs were stable. Patient was taken to the OR and time out was completed. The patient was placed in the prone position on procedure table and a pillow was placed under the abdomen to reduce lumbar lordosis. The lumbosacral area was prepped and draped in the usual sterile fashion with ChloraPrep.Patient was closely monitored duri ng the procedure. Conscious sedation was used during the procedure to decrease patients anxiety. Vital signs were monitered during the entire procedure. Using anterior-posterior fluoroscopy, the L4-5 interlaminar space was identified and the skin over this site was marked and then infiltrated with 1% lidocaine subcutaneously. Subsequently, a 20-gauge Tuohy epidural needle was inserted and advanced toward the epidural space using the Loss of resistance to air technique and guided by AP and lateral fluoroscopy. The correct needle position in the epidural space was verified with the injection of 1 mL of the water soluble contrast dye Omnipaque 180 contrast and observing an excellent epidurogram with the epidural spread of the dye, after negative aspiration for blood and CSF and in the absence of paresthesias. Again after negative aspiration, a 7 ml mixture containing 40 mg of Kenalog and 5 ml of preservative free Normal Saline, and 2 ml of preservative free ropivacaine 0.5% solution was injected and a washout of epidurogram was seen. Needle was withdrawn intact, skin was cleansed, and bandages were applied. patient tolerated procedure well and was transferred to PACU in stable condition. the patient has severe degenerative disc disease with a very narrow epidural spaces which took me a few attempts to get into the epidural space . COMPLICATIONS: None DISPOSITION / PLANS: The patient was placed in a supine position and transferred to the recovery area in a stable condition for observation. There was no evidence of lower extremity motor or sensory deficit after the procedure. Patient was discharged from the recovery room after meeting discharge criteria. Home discharge instructions were given to the patient by the staff. The patient was reexamined prior to discharge. The patient will schedule a follow up in the clinic in 2-4 weeks.
[2018-09-20 08:04] VITALS: RESP 20
[2018-09-20 08:16] VITALS: BP 121/73; PULSE 73
--- NOTE | 2018-09-20 10:44 | FL ---
EXAMINATION TYPE: FL guided pain mgmt statistic DATE OF EXAM: 09/20/2018 FLUOROSCOPY Fluoroscopy time of 25 seconds was used during lumbar epidural steroid injection. 2 image/s document /s the procedure.
== END 2018-09-20 08:28 | disposition home or self-care (01) ==
LOC: ORPAIN 06:30
PROVIDERS: ATTEND Anesthesiology
DX: M48.061 Spinal stenosis, lumbar region without neurogenic claudication (principal); M51.16 Intervertebral disc disorders with radiculopathy, lumbar region; I10 Essential (primary) hypertension; E11.9 Type 2 diabetes mellitus without complications; I48.91 Unspecified atrial fibrillation; F41.9 Anxiety disorder, unspecified; Z90.710 Acquired absence of both cervix and uterus; Z79.01 Long term (current) use of anticoagulants; Z79.52 Long term (current) use of systemic steroids
CPT/HCPCS: 62323; J3301; Q9966; 99152

== ENCOUNTER 2018-10-04 06:01 | Day surgery (SDC) | payer MEDICARE, OTHER ==
[2018-09-29 10:08] VITALS: BMI 42.0
[~2018-10-04 06:01] MED LIST changes: +LACTATED RINGERS 1,000 ML IV SCH; -SODIUM CHLORIDE 0.9% 500 ML 500 ML IV SCH
[2018-10-04 06:25] VITALS: TEMP 97.9
[2018-10-04] MEDS ORDERED: LIDOCAINE 1% 20 ML VIAL (10MG/ML) FOR IV START INTRADERMA ONE (06:30)
[2018-10-04 06:36] LABS: Glucose,Whole Blood 135 mg/dL (75-99)
--- NOTE | 2018-10-04 07:21 | P.PCN ---
Date of Procedure: 10/04/18 Surgeon: Ld Khan Pathology: none sent Condition: stable Disposition: PACU Description of Procedure: 1-Lumbar radiculopathy 2- Lumber Degenerative Disc Diseases. POSTOPERATIVE DIAGNOSIS: 1-Lumbar stenosis 2-Severe Lumbar Degenerative Disc Diseases PROCEDURE 1. Lumbar epidural steroid injection under fluoroscopic guidance at the L2-3 level. 2. Lumbar epidurogram. ANESTHESIA: Local with 1% lidocaine, no IV sedation was provided as per patient's request EBL: Minimal PROCEDURE INDICATION: The patient with low back pain and radiculitis symptoms unresponsive to conservative treatment. Fluoroscopy was used to optimize visualization of the needle placement and to maximize safety. The patient has a history of diabetes and she was on Eliquis for history of A. fib. PROCEDURE DESCRIPTION / TECHNIQUE: The patient was seen and identified in the preoperative area. Risks, benefits, complications including but not limited to infections ,bleeding ,allergic reaction to the medications ,nerve damage and not complete pain relief , and alternatives were discussed with the patient. The patient agreed to proceed with the procedure and signed the consent. IV was started, and vital signs were stable. Patient was taken to the OR and time out was completed. The patient was placed in the prone position on procedure table and a pillow was placed under the abdomen to reduce lumbar lordosis. The lumbosacral area was prepped and draped in the usual sterile fashion with ChloraPrep.Patient was closely monitored during the procedure. Conscious sedation was used during the procedure to decrease patients anxiety. Vital signs were monitered during the entire procedure. Using anterior-posterior fluoroscopy, the L2-3 interlaminar space was identified and the skin over this site was marked and then infiltrated with 1% lidocaine subcutaneously. Subsequently, a 20-gauge Tuohy epidural needle was inserted and advanced toward the epidural space using the Loss of resistance to air technique and guided by AP and lateral fluoroscopy. The correct needle position in the epidural space was verified with the injection of 1 mL of the water soluble contrast dye Omnipaque 180 contrast and observing an excellent epidurogram with the epidural spread of the dye, after negative aspiration for blood and CSF and in the absence of paresthesias. Again after negative aspiration, a 7 ml mixture containing 80 mg of Kenalog and 5 ml of preservative free Normal Saline, and 2 ml of preservative free ropivacaine 0.5% solution was injected and a washout of epidurogram was seen. Needle was withdrawn intact, skin was cleansed, and bandages were applied. patient tolerated procedure well and was transferred to PACU in stable condition. the patient has severe degenerative disc disease with a very narrow epidural spaces which took me a few attempts to get into the epidural space . COMPLICATIONS: None DISPOSITION / PLANS: The patient was placed in a supine position and transferred to the recovery area in a stable condition for observation. There was no evidence of lower extremity motor or sensory deficit after the procedure. Patient was discharged from the recovery room after meeting discharge criteria. Home discharge instructions were given to the patient by the staff. The patient was reexamined prior to discharge. The patient will schedule a follow up in the clinic in 2-4 weeks.
[2018-10-04] MEDS ORDERED: IV FLUID CONTINUATION 1,000 ML IV ONE (07:25)
[2018-10-04 07:29] VITALS: BP 131/73; PULSE 85; RESP 20
--- NOTE | 2018-10-04 08:30 | FL ---
EXAMINATION TYPE: FL guided pain mgmt statistic DATE OF EXAM: 10/04/2018 COMPARISON: NONE HISTORY: Lumbar back pain. TECHNIQUE: Fluoroscopy. FINDINGS: Fluoroscopic guidance was provided during procedure performed by Dr. Khan. A total of 9 seconds of fluoroscopic time was utilized during the procedure and 2 spot images was acquired demon strating localization of the lumbar spine. IMPRESSION: As Above.
== END 2018-10-04 07:51 | disposition home or self-care (01) ==
LOC: ORPAIN 06:01
PROVIDERS: ATTEND Anesthesiology
DX: M51.16 Intervertebral disc disorders with radiculopathy, lumbar region (principal); E11.9 Type 2 diabetes mellitus without complications; M48.061 Spinal stenosis, lumbar region without neurogenic claudication; I48.91 Unspecified atrial fibrillation; F41.9 Anxiety disorder, unspecified; Z79.01 Long term (current) use of anticoagulants; Z88.6 Allergy status to analgesic agent
CPT/HCPCS: 62323; J3301; Q9966

== ENCOUNTER → 2018-10-26 | Outpatient (CLI) | payer MEDICARE, OTHER ==
--- NOTE | 2018-10-26 09:02 | US ---
EXAMINATION TYPE: US abdomen complete DATE OF EXAM: 10/26/2018 COMPARISON: NONE CLINICAL HISTORY: R10.84 abd pain. elderly female on O2 cannot lay flat, has abdominal pain for years , cholecystectomy, known liver cysts EXAM MEASUREMENTS: Liver Length: 16.3 cm Gallbladder Wall: Surgically absent CBD: 1.1 cm Spleen: 10.5 cm Right Kidney: 9.9 x 5.5 x 5.1 cm Left Kidney: 9.6 x 5.1 x 6.0 cm *large body habitus and bowel gas limits exam Pancreas: not visualized Liver: multiple liver cysts, largest in the left lobe = 4.1cm , largest in the posterior right lobe = 2.8cm Gallbladder: Surgically absent Evidence for sonographic Gregory's sign: no CBD: dilated Spleen: echogenic foci with may represent granulomas seen. Right Kidney: cortical thinning Left Kidney: wnl Upper IVC: wnl Abd Aorta: very limited imaging due to gas IMPRESSION: 1. Common bile duct is enlarged for a postcholecystectomy status. Correlation with laboratory values is recommended. MRCP could be considered to exclude common bile duct stricture, periampullary or less likely pancreatic mass, or choledocholithiasis. Pancreas is not visualized due to overlying bowel ga s. 2. Multiple benign-appearing hepatic cysts are seen. 3. Granulomatous change of the spleen. 4. Cortical renal thinning of the right kidney, sequela of medical renal disease.
== END | disposition home or self-care (01) ==
LOC: RADUSWWP 08:12
PROVIDERS: ATTEND Internal Medicine
DX: K83.8 Other specified diseases of biliary tract (principal); K76.89 Other specified diseases of liver; D73.89 Other diseases of spleen; N28.89 Other specified disorders of kidney and ureter; Z90.49 Acquired absence of other specified parts of digestive tract
CPT/HCPCS: 76700

== ENCOUNTER → 2018-10-31 | Outpatient (CLI) | payer MEDICARE, OTHER ==
[2018-10-31 11:22] VITALS: BP 143/82; PULSE 93; RESP 16
--- NOTE | 2018-10-31 11:38 | P.PN ---
Subjective Progress Note Date: 10/31/18 Patient was seen today for follow-up. She has complaints of pain all over her body. 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 She is here today with her 2 daughters. She continues to have normal pain in her low back and reports that the epidurals significantly improved her back pain. She does have pain in her left leg along with swelling over the ankle and anterior briscoe. She denies that she bumped her leg at all. She reports it was swollen with the swelling is significantly improved. She does have an area of bruising over the anterior briscoe the left leg. She has no pain over the calf muscle. There is no erythema over the calf muscle. She is again complaining of chronic pain throughout her body and reports that [place] significantly improves her pain. She does get her [place] from her primary care physician. Objective - Vital Signs Vital signs: Vital Signs Temp Pulse 93 10/31/18 11:16 Resp 16 10/31/18 11:16 BP 143/82 10/31/18 11:16 Pulse Ox 98 10/31/18 11:16 Intake & Output 10/30/18 10/31/18 10/31/18 18:59 06:59 18:59 Weight 87.543 kg - Exam General: Awake and alert, chronically ill, no distress, obese in a wheelchair Respiratory exam: No audible wheezing no accessory muscle usage Cardiovascular exam: regular rate, palpable bilateral pulses, 1+ lower extremity edema Abdominal exam: No distention nontender to palpation, obese Cervical spine: Normal alignment, oncology rn strength is 5 out of 5 Lumbar spine: Loss of lumbar lordosis, normal alignment, tender to palpation over bilateral paraspinal muscles. Unable to test secondary to body habitus. Neuro exam: Normal sensation in bilateral upper extremities, deep tendon reflexes are 2+ bilateral upper extremities. Normal sensation in bilateral lower extremities. Deep tendon reflexes are 2+ in lower extremitie , Psych exam: Cooperative, appropriate mood Assessment and Plan Assessment: #1 lumbar radiculopathy #2 chronic comorbid conditions Plan: After discussion with the patient and her family. Since her back pain is doing better, I advised her that she should give us a call if her pain gets worse in the back. We'll be able to repeat injection as needed. She is on blood thinners and we will need to discontinue it. Could repeat in the next 1-2 months as needed. She'll continue to use [place] as needed from her primary care physician.
== END | disposition home or self-care (01) ==
LOC: PNWHC3 11:09
PROVIDERS: ATTEND Hospitalist
DX: G89.29 Other chronic pain (principal); M54.16 Radiculopathy, lumbar region; M79.89 Other specified soft tissue disorders; Z79.891 Long term (current) use of opiate analgesic
CPT/HCPCS: 99211

== ENCOUNTER 2018-11-03 10:59 | Emergency (ER) | payer MEDICARE, OTHER ==
[2018-11-03] MEDS ORDERED: SODIUM CHLORIDE 0.9% 500 ML 500 ML IV STA (11:39)
--- NOTE | 2018-11-03 11:42 | ED ---
General Adult HPI - General Chief complaint: Weakness Stated complaint: weakness/not feeling well Time Seen by Provider: 11/03/18 11:33 Source: patient, family, RN notes reviewed, old records reviewed Mode of arrival: wheelchair Limitations: no limitations - History of Present Illness Initial comments: 88-year-old female presenting with 4 months of generalized weakness, diffuse pain including chest and abdomen. States she's had increasing difficulty with ambulation. She denies specific central chest pain. Denies dyspnea. She's had generalized abdominal pain and soft bowel movements. She also complains of dysuria. No fever. No headache. No focal numbness or weakness. No headache. - Related Data Home Medications Medication Instructions Recorded Confirmed Sertraline [Zoloft] 25 mg PO DAILY 10/18/15 11/03/18 Apixaban [Eliquis] 2.5 mg PO BID 02/14/16 11/03/18 Losartan/Hydrochlorothiazide 1 tab PO DAILY 09/02/16 11/03/18 [Hyzaar 100-25 Tablet] Pantoprazole Sodium [Protonix] 40 mg PO BID 09/14/18 11/03/18 Dicyclomine [Bentyl] 10 mg PO AC-BID PRN 11/03/18 11/03/18 metFORMIN HCL 850 mg PO HS 11/03/18 11/03/18 Previous Rx's Medication Instructions Recorded Diltiazem Cd [Cardizem CD] 180 mg PO DAILY #30 cap.er.24h 07/24/18 Allergies Allergy/AdvReac Type Severity Reaction Status Date / Time aspirin AdvReac Dyspnea,Nausea/Vomiting,Dizzy,Tingling,Warm Verified 11/03/18 11:46 sensation Review of Systems ROS Statement: Those systems with pertinent positive or pertinent negative responses have been documented in the HPI. ROS Other: All systems not noted in ROS Statement are negative. Past Medical History Past Medical History: Atrial Fibrillation, Chest Pain / Angina, Heart Failure, Diabetes Mellitus, GERD/Reflux, Hyperlipidemia, Hypertension, Osteoarthritis (OA), Respiratory Disorder, Sleep Apnea/CPAP/BIPAP, Thyroid Disorder Additional Past Medical History / Comment(s): DDD WITH BACK PAIN, OCCASIONAL SWELLING IN FEET, USES C-PAP MACHINE. History of Any Multi-Drug Resistant Organisms: None Reported Past Surgical History: Cholecystectomy, Hysterectomy, Joint Replacement Additional Past Surgical History / Comment(s): EGD for gastric reflux. Excision of lipomas. bilateral cataracts, total knee., Pain clinic procedures. Past Anesthesia/Blood Transfusion Reactions: No Reported Reaction Past Psychological History: Anxiety, Depression Smoking Status: Former smoker Past Alcohol Use History: None Reported Past Drug Use History: None Reported - Past Family History Brother(s) Family Medical History: Congestive Heart Failure (CHF), COPD, Coronary Artery Disease (CAD), Diabetes Mellitus Daughter(s) Additional Family Medical History / Comment(s): One from MVA Son(s) Family Medical History: Diabetes Mellitus, Hyperlipidemia, Hypertension Sister(s) Family Medical History: Cancer Mother Family Medical History: Dementia Father Family Medical History: COPD Additional Family Medical History / Comment(s): EMPHYSEMA. General Exam Limitations: no limitations General appearance: alert, in no apparent distress Head exam: Present: atraumatic, normocephalic Eye exam: Present: normal appearance, PERRL ENT exam: Present: mucous membranes dry Neck exam: Present: normal inspection. Absent: tenderness, meningismus Respiratory exam: Present: normal lung sounds bilaterally. Absent: respiratory distress, wheezes Cardiovascular Exam: Present: regular rate, irregular rhythm GI/Abdominal exam: Present: soft. Absent: distended, tenderness, guarding Extremities exam: Present: normal inspection, normal capillary refill. Absent: pedal edema, calf tenderness Neurological exam: Present: alert, oriented X3, CN II-XII intact. Absent: motor sensory deficit Psychiatric exam: Present: normal affect, normal mood Skin exam: Present: warm, dry, intact. Absent: cyanosis, diaphoretic Course Vital Signs 11/03/18 11/03/18 11:05 13:00 Temperature 98.2 F Pulse Rate 75 84 Respiratory 18 18 Rate Blood Pressure 132/73 115/78 O2 Sat by Pulse 97 99 Oximetry EKG Findings - EKG Comments: EKG Findings:: Atrial fibrillation, rate of 81, QRS duration 76, QTC 450, no ischemic changes. Medical Decision Making - Medical Decision Making 88-year-old female presenting with several months of generalized weakness. Patient has generalized pain. No acute changes. Chest x-rays obtained, bilateral effusions and atelectasis, doubt acute infiltrate at this time. X-ray of the abdomen is obtained negative for obstruction or free air. Patient has normal CBC, normal CMP, urinalysis is negative. She was offered admission for further evaluation of her weakness. She declines she prefers discharge with outpatient follow-up. She will return with worsening or changing symptoms. - Lab Data Result diagrams: 11/03/18 11:43 11/03/18 11:43 Lab Results 11/03/18 11/03/18 11/03/18 Range/Units 11:43 11:43 11:43 WBC 8.7 (3.8-10.6) k/uL RBC 4.20 (3.80-5.40) m/uL Hgb 12.4 (11.4-16.0) gm/dL Hct 39.7 (34.0-46.0) % MCV 94.5 (80.0-100.0) fL MCH 29.6 (25.0-35.0) pg MCHC 31.3 (31.0-37.0) g/dL RDW 15.2 (11.5-15.5) % Plt Count 216 (150-450) k/uL Neutrophils % 67 % Lymphocytes % 26 % Monocytes % 5 % Eosinophils % 1 % Basophils % 0 % Neutrophils # 5.8 (1.3-7.7) k/uL Lymphocytes # 2.2 (1.0-4.8) k/uL Monocytes # 0.4 (0-1.0) k/uL Eosinophils # 0.1 (0-0.7) k/uL Basophils # 0.0 (0-0.2) k/uL PT 9.9 (9.0-12.0) sec INR 0.9 (<1.2) APTT 22.1 (22.0-30.0) sec Sodium 140 (137-145) mmol/L Potassium 4.3 (3.5-5.1) mmol/L Chloride 99 (98-107) mmol/L Carbon Dioxide 39 H (22-30) mmol/L Anion Gap 2 mmol/L BUN 22 H (7-17) mg/dL Creatinine 0.51 L (0.52-1.04) mg/dL Est GFR (CKD-EPI)AfAm >90 (>60 ml/min/1.73 sqM) Est GFR (CKD-EPI)NonAf 88 (>60 ml/min/1.73 sqM) Glucose 150 H (74-99) mg/dL Plasma Lactic Acid Osorio (0.7-2.0) mmol/L Calcium 9.3 (8.4-10.2) mg/dL Magnesium 1.5 L (1.6-2.3) mg/dL Total Bilirubin 0.7 (0.2-1.3) mg/dL AST 22 (14-36) U/L ALT 39 (9-52) U/L Alkaline Phosphatase 43 (38-126) U/L Troponin I (0.000-0.034) ng/mL Total Protein 6.2 L (6.3-8.2) g/dL Albumin 3.8 (3.5-5.0) g/dL Urine Color Urine Appearance (Clear) Urine pH (5.0-8.0) Ur Specific [place] (1.001-1.035) Urine Protein (Negative) Urine Glucose (UA) (Negative) Urine Ketones (Negative) Urine Blood (Negative) Urine Nitrite (Negative) Urine Bilirubin (Negative) Urine Urobilinogen (<2.0) mg/dL Ur Leukocyte Esterase (Negative) Urine RBC (0-5) /hpf Urine WBC (0-5) /hpf Ur Squamous Epith Cells (0-4) /hpf Urine Bacteria (None) /hpf Hyaline Casts (0-2) /lpf Urine Mucus (None) /hpf 11/03/18 11/03/18 11/03/18 Range/Units 11:43 11:56 12:40 WBC (3.8-10.6) k/uL RBC (3.80-5.40) m/uL Hgb (11.4-16.0) gm/dL Hct (34.0-46.0) % MCV (80.0-100.0) fL MCH (25.0-35.0) pg MCHC (31.0-37.0) g/dL RDW (11.5-15.5) % Plt Count (150-450) k/uL Neutrophils % % Lymphocytes % % Monocytes % % Eosinophils % % Basophils % % Neutrophils # (1.3-7.7) k/uL Lymphocytes # (1.0-4.8) k/uL Monocytes # (0-1.0) k/uL Eosinophils # (0-0.7) k/uL Basophils # (0-0.2) k/uL PT (9.0-12.0) sec INR (<1.2) APTT (22.0-30.0) sec Sodium (137-145) mmol/L Potassium (3.5-5.1) mmol/L Chloride (98-107) mmol/L Carbon Dioxide (22-30) mmol/L Anion Gap mmol/L BUN (7-17) mg/dL Creatinine (0.52-1.04) mg/dL Est GFR (CKD-EPI)AfAm (>60 ml/min/1.73 sqM) Est GFR (CKD-EPI)NonAf (>60 ml/min/1.73 sqM) Glucose (74-99) mg/dL Plasma Lactic Acid Osorio 1.3 (0.7-2.0) mmol/L Calcium (8.4-10.2) mg/dL Magnesium (1.6-2.3) mg/dL Total Bilirubin (0.2-1.3) mg/dL AST (14-36) U/L ALT (9-52) U/L Alkaline Phosphatase (38-126) U/L Troponin I <0.012 (0.000-0.034) ng/mL Total Protein (6.3-8.2) g/dL Albumin (3.5-5.0) g/dL Urine Color Yellow Urine Appearance Clear (Clear) Urine pH 6.0 (5.0-8.0) Ur Specific [place] 1.027 (1.001-1.035) Urine Protein Negative (Negative) Urine Glucose (UA) Negative (Negative) Urine Ketones Negative (Negative) Urine Blood Trace H (Negative) Urine Nitrite Negative (Negative) Urine Bilirubin Negative (Negative) Urine Urobilinogen 2.0 (<2.0) mg/dL Ur Leukocyte Esterase Negative (Negative) Urine RBC 1 (0-5) /hpf Urine WBC 1 (0-5) /hpf Ur Squamous Epith Cells 5 H (0-4) /hpf Urine Bacteria Moderate H (None) /hpf Hyaline Casts 3 H (0-2) /lpf Urine Mucus Rare H (None) /hpf Disposition Clinical Impression: Generalized weakness Disposition: HOME SELF-CARE Condition: Fair Instructions (If sedation given, give patient instructions): Weakness (ED) Is patient prescribed a controlled substance at d/c from ED?: No Referrals: Kareem Issa MD [Primary Care Provider] - 1-2 days Time of Disposition: 13:39
[2018-11-03 12:00] LABS: Basophils % (A) 0 %; Eosinophils # (A) 0.1 k/uL (0-0.7); Eosinophils % (A) 1 %; HCT 39.7 % (34.0-46.0); HGB 12.4 gm/dL (11.4-16.0); Lymphocytes # (A) 2.2 k/uL (1.0-4.8); Lymphocytes % (A) 26 %; MCH 29.6 pg (25.0-35.0); MCHC 31.3 g/dL (31.0-37.0); MCV 94.5 fL (80.0-100.0); Mean Platelet Volume 7.5; Monocytes # (A) 0.4 k/uL (0-1.0); Monocytes % (A) 5 %; Neutrophils # (A) 5.8 k/uL (1.3-7.7); Neutrophils % (A) 67 %; Platelet Count 216 k/uL (150-450); RDW 15.2 % (11.5-15.5); WBC 8.7 k/uL (3.8-10.6)
[2018-11-03 12:07] LABS: ALT 39 U/L (9-52); AST 22 U/L (14-36); Albumin 3.8 g/dL (3.5-5.0); Alkaline Phosphatase 43 U/L (38-126); Anion Gap 2 mmol/L; Blood Urea Nitrogen 22 mg/dL (7-17); Calcium 9.3 mg/dL (8.4-10.2); Carbon Dioxide 39 mmol/L (22-30); Chloride 99 mmol/L (98-107); Glucose 150 mg/dL (74-99); Magnesium 1.5 mg/dL (1.6-2.3); Potassium 4.3 mmol/L (3.5-5.1); Sodium 140 mmol/L (137-145); Total Bilirubin 0.7 mg/dL (0.2-1.3); Total Protein 6.2 g/dL (6.3-8.2)
[2018-11-03 12:29] LABS: INR 0.9 (<1.2); Partial Thromboplastin Time 22.1 sec (22.0-30.0); Prothrombin Time 9.9 sec (9.0-12.0)
--- NOTE | 2018-11-03 12:31 | XR ---
EXAMINATION TYPE: XR KUB DATE OF EXAM: 11/03/2018 COMPARISON: 11/26/09 HISTORY: Pain TECHNIQUE: Single supine KUB image of the abdomen is obtained FINDINGS: Small bowel demonstrates no evidence for dilatation or air fluid levels. Gas and fecal material is seen in non-distended colon. No convincing evidence for pneumoperitoneum. No unusual calcifications. The lung bases are clear. The osseous structures are intact. IMPRESSION: 1. Overall nonobstructive bowel gas pattern.
--- NOTE | 2018-11-03 12:31 | XR ---
EXAMINATION TYPE: XR chest 2V DATE OF EXAM: 11/03/2018 COMPARISON: 07/20/2018 TECHNIQUE: PA and lateral views submitted. HISTORY: Weakness FINDINGS: Heart is enlarged and there are small bilateral effusions. Arthropathy of the shoulders with diffuse osteopenia. No overt failure. Linear changes involving both lungs are likely related atelectasis. No pneumothorax. Hypertrophic and degenerative change of the spine. Surgical clips in the abdomen. IMPRESSION: 1. Tiny bilateral pleural effusion or thickening. Subsegmental consolidation bilaterally may been the basis of atelectasis rather than infiltrate. Correlate clinically.
[2018-11-03 12:57] LABS: Appearance,Urine Clear (Clear); Bacteria,Urine Moderate /hpf; Bilirubin,Urine Negative (Negative); Blood,Urine Trace (Negative); Color,Urine Yellow; Glucose,Urine (UA) Negative (Negative); Hyaline Casts,Urine 3 /lpf (0-2); Ketones,Urine Negative (Negative); Leukocyte Esterase,Urine Negative (Negative); Mucus,Urine Rare /hpf; Nitrite,Urine Negative (Negative); Protein,Urine Negative (Negative); RBC,Urine 1 /hpf (0-5); Specific Gravity,Urine 1.027 (1.001-1.035); Squamous Epithelial Cell,Urine 5 /hpf (0-4); WBC,Urine 1 /hpf (0-5)
[2018-11-03 13:45] VITALS: BP 121/56; PULSE 77; RESP 20; TEMP 98.1
== END 2018-11-03 13:55 | disposition home or self-care (01) ==
LOC: EC 10:59
DX: R53.1 Weakness (principal); J98.11 Atelectasis; R10.84 Generalized abdominal pain; I48.91 Unspecified atrial fibrillation; I11.0 Hypertensive heart disease with heart failure; I50.9 Heart failure, unspecified; E11.9 Type 2 diabetes mellitus without complications; K21.9 Gastro-esophageal reflux disease without esophagitis; M19.90 Unspecified osteoarthritis, unspecified site; F41.9 Anxiety disorder, unspecified; F32.9 Major depressive disorder, single episode, unspecified; G47.30 Sleep apnea, unspecified; Z99.89 Dependence on other enabling machines and devices; Z96.659 Presence of unspecified artificial knee joint; Z87.891 Personal history of nicotine dependence; Z82.49 Family history of ischemic heart disease and other diseases of the circulatory system; Z82.5 Family history of asthma and other chronic lower respiratory diseases; Z53.29 Procedure and treatment not carried out because of patient's decision for other reasons; Z79.01 Long term (current) use of anticoagulants; Z79.84 Long term (current) use of oral hypoglycemic drugs; Z79.899 Other long term (current) drug therapy; Z88.6 Allergy status to analgesic agent
CPT/HCPCS: 36415; 71046; 74018; 80053; 81001; 83605; 83735; 84484; 85025; 85610; 85730; 93005; 99285

== ENCOUNTER 2018-11-30 18:08 | Inpatient (IN) | payer MEDICARE, OTHER ==
[2018-11-30] MEDS ORDERED: MORPHINE SULFATE 4 MG/ML SYRINGE IV STA (18:13)
[2018-11-30] MEDS ORDERED: PANTOPRAZOLE 40 MG/10 ML VIAL IVP STA (18:13)
[2018-11-30 18:42] LABS: Basophils % (A) 0 %; Eosinophils # (A) 0.2 k/uL (0-0.7); Eosinophils % (A) 2 %; HCT 37.4 % (34.0-46.0); HGB 12.5 gm/dL (11.4-16.0); Lymphocytes % (A) 18 %; MCH 30.7 pg (25.0-35.0); MCHC 33.5 g/dL (31.0-37.0); MCV 91.8 fL (80.0-100.0); Mean Platelet Volume 7.4; Monocytes # (A) 0.4 k/uL (0-1.0); Monocytes % (A) 4 %; Neutrophils # (A) 8.1 k/uL (1.3-7.7); Neutrophils % (A) 75 %; Platelet Count 218 k/uL (150-450); RBC 4.08 m/uL (3.80-5.40); RDW 14.9 % (11.5-15.5); WBC 10.8 k/uL (3.8-10.6)
[2018-11-30 18:46] LABS: ALT 21 U/L (9-52); AST 19 U/L (14-36); African American GFR (CKD) >90 (>60 ml/min/1.73 sqM); Albumin 3.5 g/dL (3.5-5.0); Alkaline Phosphatase 48 U/L (38-126); Amylase 82 U/L (30-110); Anion Gap 5 mmol/L; Blood Urea Nitrogen 22 mg/dL (7-17); Calcium 8.6 mg/dL (8.4-10.2); Carbon Dioxide 36 mmol/L (22-30); Chloride 99 mmol/L (98-107); Glucose 100 mg/dL (74-99); Lipase 63 U/L (23-300); Potassium 3.8 mmol/L (3.5-5.1); Sodium 140 mmol/L (137-145); Total Bilirubin 0.5 mg/dL (0.2-1.3)
[2018-11-30 18:55] LABS: INR 0.9 (<1.2); Partial Thromboplastin Time 23.5 sec (22.0-30.0); Prothrombin Time 10.2 sec (9.0-12.0)
--- NOTE | 2018-11-30 19:28 | XR ---
EXAMINATION TYPE: XR chest 2V DATE OF EXAM: 11/30/2018 COMPARISON: 11/03/2018 HISTORY: Abdominal pain TECHNIQUE: Frontal and lateral views of the chest are obtained. FINDINGS: Heart is enlarged. There is no heart failure. Costophrenic angles are fairly clear. Thorac ic aorta is atheromatous. There is slight blunting of left costophrenic angle. There is spurring in t he thoracic spine. There is osteopenia. IMPRESSION: There is some pleural diaphragmatic scarring at the left lung base. No acute lung diseas e. No adverse change compared to old exam. Stable mild cardiomegaly.
--- NOTE | 2018-11-30 19:32 | XR ---
EXAMINATION TYPE: XR KUB DATE OF EXAM: 11/30/2018 COMPARISON: NONE HISTORY: Abdominal pain TECHNIQUE: 2 views upright FINDINGS: There is no sign of intestinal obstruction or pneumoperitoneum. There are clips from cholec ystectomy. There is mild thoracolumbar levoscoliosis. There is multilevel spondylotic changes in the thoracic and lumbar spine. There are no pathologic calcifications over the kidneys. IMPRESSION: Nonacute abdomen. Cardiomegaly. No change.
--- NOTE | 2018-11-30 19:48 | ED ---
General Adult HPI - General Chief complaint: Abdominal Pain Stated complaint: abd pain Time Seen by Provider: 11/30/18 18:09 Source: patient, EMS, RN notes reviewed, old records reviewed Mode of arrival: EMS Limitations: language barrier - History of Present Illness Initial comments: 88-year-old female presenting for evaluation of epigastric abdominal pain. Patient has had abdominal pain for many months, she has followed with her primary care physician regarding these symptoms. She presents today with worsening pain and nausea. She describes pain as relatively epigastric and lower chest. Denies any radiating symptoms. Denies change in her bowel movements. She's had nausea without significant vomiting. No fever or chills. Previous surgical history of cholecystectomy. - Related Data Home Medications Medication Instructions Recorded Confirmed Sertraline [Zoloft] 25 mg PO DAILY 10/18/15 11/30/18 Apixaban [Eliquis] 2.5 mg PO BID 02/14/16 11/30/18 Losartan/Hydrochlorothiazide 1 tab PO DAILY 09/02/16 11/30/18 [Hyzaar 100-25 Tablet] Pantoprazole Sodium [Protonix] 40 mg PO BID 09/14/18 11/30/18 Dicyclomine [Bentyl] 10 mg PO AC-BID PRN 11/03/18 11/30/18 metFORMIN HCL 850 mg PO HS 11/03/18 11/30/18 Previous Rx's Medication Instructions Recorded Diltiazem Cd [Cardizem CD] 180 mg PO DAILY #30 cap.er.24h 07/24/18 Allergies Allergy/AdvReac Type Severity Reaction Status Date / Time aspirin AdvReac Dyspnea,Nausea/Vomiting,Dizzy,Tingling,Warm Verified 11/30/18 18:25 sensation Review of Systems ROS Statement: Those systems with pertinent positive or pertinent negative responses have been documented in the HPI. ROS Other: All systems not noted in ROS Statement are negative. Past Medical History Past Medical History: Atrial Fibrillation, Chest Pain / Angina, Heart Failure, Diabetes Mellitus, GERD/Reflux, Hyperlipidemia, Hypertension, Osteoarthritis (OA), Respiratory Disorder, Sleep Apnea/CPAP/BIPAP, Thyroid Disorder Additional Past Medical History / Comment(s): DDD WITH BACK PAIN, OCCASIONAL SWELLING IN FEET, USES C-PAP MACHINE. History of Any Multi-Drug Resistant Organisms: None Reported Past Surgical History: Cholecystectomy, Hysterectomy, Joint Replacement Additional Past Surgical History / Comment(s): EGD for gastric reflux. Excision of lipomas. bilateral cataracts, total knee., Pain clinic procedures. Past Anesthesia/Blood Transfusion Reactions: No Reported Reaction Past Psychological History: Anxiety, Depression Smoking Status: Former smoker Past Alcohol Use History: None Reported Past Drug Use History: None Reported - Past Family History Brother(s) Family Medical History: Congestive Heart Failure (CHF), COPD, Coronary Artery Disease (CAD), Diabetes Mellitus Daughter(s) Additional Family Medical History / Comment(s): One from MVA Son(s) Family Medical History: Diabetes Mellitus, Hyperlipidemia, Hypertension Sister(s) Family Medical History: Cancer Mother Family Medical History: Dementia Father Family Medical History: COPD Additional Family Medical History / Comment(s): EMPHYSEMA. General Exam Limitations: language barrier General appearance: alert, in no apparent distress Head exam: Present: atraumatic, normocephalic Eye exam: Present: normal appearance, PERRL ENT exam: Present: normal exam Neck exam: Present: normal inspection. Absent: tenderness, meningismus Respiratory exam: Present: normal lung sounds bilaterally. Absent: respiratory distress, wheezes Cardiovascular Exam: Present: regular rate, normal rhythm GI/Abdominal exam: Present: soft, distended (Epigastric). Absent: tenderness, guarding Extremities exam: Present: normal inspection, normal capillary refill. Absent: pedal edema, calf tenderness Neurological exam: Present: alert, oriented X3, CN II-XII intact. Absent: motor sensory deficit Psychiatric exam: Present: normal affect, normal mood Skin exam: Present: warm, dry, intact. Absent: cyanosis, diaphoretic Course Vital Signs 11/30/18 11/30/18 11/30/18 18:16 19:00 19:10 Temperature 98.4 F Pulse Rate 100 Respiratory 17 Rate Blood Pressure 142/87 133/89 124/95 O2 Sat by Pulse 98 98 99 Oximetry EKG Findings - EKG Comments: EKG Findings:: EKG: Atrial fibrillation, rate of 90, QRS duration 78, QTC 457, no ST segment elevation Medical Decision Making - Medical Decision Making 88 yo female with intermittent abdominal pain, is epigastric pain and lower chest pain. Symptoms have been ongoing for many months. Patient has normal CBC , normal CMP with the exception of an elevated CO2 which is chronic for this patient. Troponin negative, EKG nonischemic. Chest x-ray obtained, no acute cardiopulmonary findings, normal abdominal x-ray. CT is performed, does show liver cysts, no dilatation of the common bile duct, no acute findings. Patient will be admitted for symptom control, GI consultation. Case is discussed with Dr. Issa - Lab Data Result diagrams: 11/30/18 18:28 11/30/18 18:28 Lab Results 11/30/18 11/30/18 11/30/18 Range/Units 18:28 18:28 18:28 WBC 10.8 H (3.8-10.6) k/uL RBC 4.08 (3.80-5.40) m/uL Hgb 12.5 (11.4-16.0) gm/dL Hct 37.4 (34.0-46.0) % MCV 91.8 (80.0-100.0) fL MCH 30.7 (25.0-35.0) pg MCHC 33.5 (31.0-37.0) g/dL RDW 14.9 (11.5-15.5) % Plt Count 218 (150-450) k/uL Neutrophils % 75 % Lymphocytes % 18 % Monocytes % 4 % Eosinophils % 2 % Basophils % 0 % Neutrophils # 8.1 H (1.3-7.7) k/uL Lymphocytes # 2.0 (1.0-4.8) k/uL Monocytes # 0.4 (0-1.0) k/uL Eosinophils # 0.2 (0-0.7) k/uL Basophils # 0.0 (0-0.2) k/uL PT (9.0-12.0) sec INR (<1.2) APTT (22.0-30.0) sec Sodium 140 (137-145) mmol/L Potassium 3.8 (3.5-5.1) mmol/L Chloride 99 (98-107) mmol/L Carbon Dioxide 36 H (22-30) mmol/L Anion Gap 5 mmol/L BUN 22 H (7-17) mg/dL Creatinine 0.60 (0.52-1.04) mg/dL Est GFR (CKD-EPI)AfAm >90 (>60 ml/min/1.73 sqM) Est GFR (CKD-EPI)NonAf 83 (>60 ml/min/1.73 sqM) Glucose 100 H (74-99) mg/dL Plasma Lactic Acid Osorio (0.7-2.0) mmol/L Calcium 8.6 (8.4-10.2) mg/dL Total Bilirubin 0.5 (0.2-1.3) mg/dL AST 19 (14-36) U/L ALT 21 (9-52) U/L Alkaline Phosphatase 48 (38-126) U/L Troponin I <0.012 (0.000-0.034) ng/mL Total Protein 6.0 L (6.3-8.2) g/dL Albumin 3.5 (3.5-5.0) g/dL Amylase 82 (30-110) U/L Lipase 63 (23-300) U/L 11/30/18 11/30/18 Range/Units 18:28 18:28 WBC (3.8-10.6) k/uL RBC (3.80-5.40) m/uL Hgb (11.4-16.0) gm/dL Hct (34.0-46.0) % MCV (80.0-100.0) fL MCH (25.0-35.0) pg MCHC (31.0-37.0) g/dL RDW (11.5-15.5) % Plt Count (150-450) k/uL Neutrophils % % Lymphocytes % % Monocytes % % Eosinophils % % Basophils % % Neutrophils # (1.3-7.7) k/uL Lymphocytes # (1.0-4.8) k/uL Monocytes # (0-1.0) k/uL Eosinophils # (0-0.7) k/uL Basophils # (0-0.2) k/uL PT 10.2 (9.0-12.0) sec INR 0.9 (<1.2) APTT 23.5 (22.0-30.0) sec Sodium (137-145) mmol/L Potassium (3.5-5.1) mmol/L Chloride (98-107) mmol/L Carbon Dioxide (22-30) mmol/L Anion Gap mmol/L BUN (7-17) mg/dL Creatinine (0.52-1.04) mg/dL Est GFR (CKD-EPI)AfAm (>60 ml/min/1.73 sqM) Est GFR (CKD-EPI)NonAf (>60 ml/min/1.73 sqM) Glucose (74-99) mg/dL Plasma Lactic Acid Osorio 1.3 (0.7-2.0) mmol/L Calcium (8.4-10.2) mg/dL Total Bilirubin (0.2-1.3) mg/dL AST (14-36) U/L ALT (9-52) U/L Alkaline Phosphatase (38-126) U/L Troponin I (0.000-0.034) ng/mL Total Protein (6.3-8.2) g/dL Albumin (3.5-5.0) g/dL Amylase (30-110) U/L Lipase (23-300) U/L Disposition Clinical Impression: Abdominal pain, Generalized weakness Disposition: ADMITTED IP TO THIS [facility] Condition: Stable Is patient prescribed a controlled substance at d/c from ED?: No Referrals: Kareem Issa MD [Primary Care Provider] - 1-2 days Decision to Admit Reason: Admit from EC Decision Date: 11/30/18 Decision Time: 20:38
--- NOTE | 2018-11-30 20:07 | CT ---
EXAMINATION TYPE: CT abdomen pelvis w con DATE OF EXAM: 11/30/2018 COMPARISON: 03/30/2017 HISTORY: Epigastric pain and body shakes CT DLP: 1324.5 mGycm Automated exposure control for dose reduction was used. TECHNIQUE: Helical acquisition of images was performed from the lung bases through the pelvis. CONTRAST: Performed without Oral Contrast and with IV Contrast, patient injected with 100 mL of Isovue 300. FINDINGS: Lung bases are clear of consolidation. There is no pleural effusion. Heart is enlarged. There is no p ericardial effusion. There are multiple cysts in the liver that measure up to 5 cm. The bile ducts are not dilated. There are calcified splenic granulomata. Stomach appears normal. There is no evidence of pancreatic mass. B ile ducts are not dilated. There are clips from cholecystectomy. There is no adrenal mass. Kidneys show satisfactory contrast opacification. There is no hydronephrosi s. Ureters are not dilated. There is a 1 cm cortical cyst lower pole right kidney. There is 2 mm calc ulus lower pole right kidney. There is no retroperitoneal adenopathy. Bladder distends smoothly. There is small amount of free fluid in the pelvis. There are sigmoid diver ticula. There is no definite diverticulitis. Appendix appears normal. There is no mesenteric edema. T here is no ascites. There is no sign of free air. 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 THERE IS SOME MINIMAL FREE FLUID IN THE PELVIS UNCHANGED. NORMAL APPENDIX. STABLE MULTIPLE HEPATIC CYSTS.
[2018-11-30] MEDS ORDERED: NALOXONE 0.4 MG/ML 1 ML VIAL IV PRN (20:33)
[2018-11-30] MEDS ORDERED: ONDANSETRON 4 MG/2 ML VIAL IVP PRN (20:33)
[2018-11-30] MEDS: HYDROmorphone 0.5 MG/0.5 ML SYRINGE IVP PRN (20:53)
[2018-11-30] MEDS: SODIUM CHLORIDE 0.9% 1,000 ML IV SCH (20:54)
[2018-11-30 21:52] VITALS: BMI 50.7
[2018-11-30] MEDS ORDERED: DICYCLOMINE 10 MG CAP PO PRN (22:25)
[2018-11-30] MEDS: APIXABAN 2.5 MG TABLET PO SCH (22:45)
[2018-12-01 07:10] LABS: Glucose,Whole Blood 86 mg/dL (75-99)
[2018-12-01] MEDS: INSULIN ASPART (NovoLOG) 100 UNIT/ML VIAL SQ SCH ×4 (07:17→20:51)
[2018-12-01] MEDS: SERTRALINE 25 MG TAB PO SCH (07:34)
[2018-12-01] MEDS: LOSARTAN 50 MG TAB PO SCH (07:34)
[2018-12-01] MEDS: HYDROCHLOROTHIAZIDE 25 MG TAB PO SCH (07:34)
[2018-12-01] MEDS: DILTIAZEM CD 180 MG CAP.ER.24H PO SCH (07:34)
[2018-12-01] MEDS: APIXABAN 2.5 MG TABLET PO SCH (07:37)
[2018-12-01] MEDS ORDERED: PANTOPRAZOLE 40 MG/10 ML VIAL IVP SCH (09:00)
--- NOTE | 2018-12-01 11:06 | P.HPIM ---
History of Present Illness H&P Date: 12/01/18 This is a 88-year-old female patient who presents with complaints of ongoing epigastric pain. Patient reports that this pain has been occurring over the past year per patient pain has become more constant severe lately. Patient reports that sometimes this occurs right after eating. Patient denies any associated diarrhea or constipation. Patient denies any nausea or vomiting. Patient denies any recent change in bowel habits. Patient does have past medical history of cholecystectomy, atrial fibrillation which she's on eliquis, chest pain, heart failure, diabetes mellitus, GERD, hyperlipidemia, hypertension, osteoarthritis, hypothyroidism, anxiety and ex-smoker. KUB x-ray completed showing nonacute abdomen. Cardiomegaly. No change. Abdominal pelvis CT completed showing sigmoid diverticulosis without definite diverticulitis. There is some minimal free fluid in the pelvic unchanged. Normal appendix. Stable multiple hepatic cyst. Chest x-ray completed showing some pleural diap hragmatic scarring at the left lung base no acute lung disease. No adverse change compared to old exam. Stable mild cardiomegaly. EKG completed showing atrial fibrillation with heart rate of 90. This time patient is resting comfortably bed. Patient denies chest pain or shortness of breath. Patient denies nausea vomiting or diarrhea. Patient denies any urinary burning or frequency. GI services have been consulted Review of Systems Please refer to HPI otherwise unremarkable Past Medical History Past Medical History: Atrial Fibrillation, Chest Pain / Angina, Heart Failure, Diabetes Mellitus, GERD/Reflux, Hyperlipidemia, Hypertension, Osteoarthritis (OA), Respiratory Disorder, Sleep Apnea/CPAP/BIPAP, Thyroid Disorder Additional Past Medical History / Comment(s): DDD WITH BACK PAIN, OCCASIONAL SWELLING IN FEET, USES C-PAP MACHINE. History of Any Multi-Drug Resistant Organisms: None Reported Past Surgical History: Cholecystectomy, Hysterectomy, Joint Replacement Additional Past Surgical History / Comment(s): EGD for gastric reflux. Excision of lipomas. bilateral cataracts, total knee., Pain clinic procedures. Past Anesthesia/Blood Transfusion Reactions: No Reported Reaction Past Psychological History: Anxiety, Depression Smoking Status: Former smoker Past Alcohol Use History: None Reported Additional Past Alcohol Use History / Comment(s): SMOKED 3 PPD. STARTED SMOKING AGE 15, QUIT 35 YEARS AGO Past Drug Use History: None Reported Additional Drug Use History / Comment(s): . - Past Family History Brother(s) Family Medical History: Congestive Heart Failure (CHF), COPD, Coronary Artery Disease (CAD), Diabetes Mellitus Daughter(s) Additional Family Medical History / Comment(s): One from MVA Son(s) Family Medical History: Diabetes Mellitus, Hyperlipidemia, Hypertension Sister(s) Family Medical History: Cancer Mother Family Medical History: Dementia Father Family Medical History: COPD Additional Family Medical History / Comment(s): EMPHYSEMA. Medications and Allergies Home Medications Medication Instructions Recorded Confirmed Type Sertraline [Zoloft] 25 mg PO DAILY 10/18/15 11/30/18 History Apixaban [Eliquis] 2.5 mg PO BID 02/14/16 11/30/18 History Losartan/Hydrochlorothiazide 1 tab PO DAILY 09/02/16 11/30/18 History [Hyzaar 100-25 Tablet] Diltiazem Cd [Cardizem CD] 180 mg PO DAILY #30 cap.er.24h 07/24/18 11/30/18 Rx Pantoprazole Sodium [Protonix] 40 mg PO BID 09/14/18 11/30/18 History Dicyclomine [Bentyl] 10 mg PO AC-BID PRN 11/03/18 11/30/18 History metFORMIN HCL 850 mg PO HS 11/03/18 11/30/18 History Allergies Allergy/AdvReac Type Severity Reaction Status Date / Time aspirin AdvReac Dyspnea,Nausea/Vomiting,Dizzy,Tingling,Warm Verified 11/30/18 18:25 sensation Physical Exam Vitals: Vital Signs Temp Pulse Pulse Resp BP BP Pulse Ox 12/01/18 05:56 98.0 F 87 18 102/62 98 11/30/18 21:30 98.1 F 89 18 116/77 98 11/30/18 21:05 97.7 F 11/30/18 20:45 117/80 11/30/18 20:30 118/81 99 11/30/18 19:30 124/95 98 11/30/18 19:10 124/95 99 11/30/18 19:00 133/89 98 11/30/18 18:16 98.4 F 100 17 142/87 98 Intake and Output 11/30/18 12/01/18 12/01/18 22:59 06:59 14:59 Intake Total 200 200 200 Balance 200 200 200 Intake: Oral 200 200 200 Other: Voiding Method Toilet # Voids 1 1 Weight 106.367 kg Head normocephalic Neck supple Lungs clear to auscultation bilaterally no wheezing or crackles Heart regular rate and rhythm S1-S2, no rub or gallop Abdomen is soft round nontender nondistended positive bowel sounds no hepatosplenomegaly Extremities no edema Neuro alert and orientated to 3 Results CBC & Chem 7: 11/30/18 18:28 11/30/18 18:28 Labs: Abnormal Lab Results - Last 24 Hours (Table) 11/30/18 11/30/18 Range/Units 18:28 18:28 WBC 10.8 H (3.8-10.6) k/uL Neutrophils # 8.1 H (1.3-7.7) k/uL Carbon Dioxide 36 H (22-30) mmol/L BUN 22 H (7-17) mg/dL Glucose 100 H (74-99) mg/dL Total Protein 6.0 L (6.3-8.2) g/dL Thrombosis Risk Factor Assmnt - Choose All That Apply Each Factor Represents 1 point: Obesity (BMI >25) Other Risk Factors: Yes Each Risk Factor Represents 3 Points: Age 75 years or older Thrombosis Risk Factor Assessment Total Risk Factor Score: 4 Thrombosis Risk Factor Assessment Level: Moderate Risk Assessment and Plan Assessment: 1. Abdominal pain. Abdominal pelvic CT completed showing sigmoid diverticulosis without definite diverticulitis. There is some minimal free fluid in the pelvic unchanged. Normal appendix. Stable multiple hepatic cyst. KUB x-ray completed showing nonacute abdomen. Cardiomegaly. No change. Amylase and lipase within normal limits. GI services have been consulted. Patient on Protonix twice a day. 2. History of chronic persistent nature fibrillation. Patient maintained on eliquis 3. History of diabetes mellitus type 2. Home medications resumed sliding scale coverage added 4. History of GERD 5. History of essential hypertension 6. History of osteoarthritis 7. History of sleep apnea 8. History of depression 9. History of COPD DVT prophylaxis eliquis. GI prophylaxis Protonix Time with Patient: Greater than 30 (Greater than 60% of the total time spent in counseling and coordination of care. I performed an examination of the patient and discussed their management with the Nurse Practitioner. I have reviewed the Nurse Practitioner's notes and agree with the documented findings and plan of care)
[2018-12-01 11:10] LABS: Appearance,Urine Clear (Clear); Bilirubin,Urine Negative (Negative); Blood,Urine Negative (Negative); Color,Urine Yellow; Glucose,Urine (UA) Negative (Negative); Ketones,Urine Negative (Negative); Leukocyte Esterase,Urine Negative (Negative); Nitrite,Urine Negative (Negative); Protein,Urine Negative (Negative); Specific Gravity,Urine 1.023 (1.001-1.035)
[2018-12-01 11:15] LABS: ALT 30 U/L (9-52); AST 33 U/L (14-36); African American GFR (CKD) >90 (>60 ml/min/1.73 sqM); Albumin 3.5 g/dL (3.5-5.0); Alkaline Phosphatase 51 U/L (38-126); Anion Gap 5 mmol/L; Blood Urea Nitrogen 19 mg/dL (7-17); Calcium 8.6 mg/dL (8.4-10.2); Carbon Dioxide 38 mmol/L (22-30); Chloride 97 mmol/L (98-107); Glucose 160 mg/dL (74-99); Potassium 3.6 mmol/L (3.5-5.1); Sodium 140 mmol/L (137-145); Total Bilirubin 0.9 mg/dL (0.2-1.3); Total Protein 5.8 g/dL (6.3-8.2)
[2018-12-01 11:26] LABS: Basophils % (A) 0 %; Eosinophils # (A) 0.1 k/uL (0-0.7); Eosinophils % (A) 1 %; HCT 37.9 % (34.0-46.0); HGB 11.9 gm/dL (11.4-16.0); Lymphocytes # (A) 1.6 k/uL (1.0-4.8); Lymphocytes % (A) 19 %; MCH 29.5 pg (25.0-35.0); MCHC 31.3 g/dL (31.0-37.0); MCV 94.2 fL (80.0-100.0); Mean Platelet Volume 7.7; Monocytes # (A) 0.4 k/uL (0-1.0); Monocytes % (A) 4 %; Neutrophils # (A) 6.4 k/uL (1.3-7.7); Neutrophils % (A) 75 %; Platelet Count 217 k/uL (150-450); RBC 4.02 m/uL (3.80-5.40); WBC 8.6 k/uL (3.8-10.6)
[2018-12-01 11:34] LABS: Glucose,Whole Blood 140 mg/dL (75-99)
--- NOTE | 2018-12-01 13:47 | P.CONS ---
History of Present Illness - Reason for Consult Consult date: 12/01/18 Epigastric pain Requesting physician: Kareem Issa - Chief Complaint Epigastric abdominal pain - History of Present Illness 88-year-old female with a history of atrial fibrillation maintained on ELIQUIS, COPD/CPAP with requirement of low flow O2 dependency 3 months, CHF, diabetes mellitus, hypertension, hyperlipidemia, GERD, sleep apnea, hypothyroidism, presents with persistent epigastric pain at least one month duration without nausea vomiting hematemesis hematochezia or melena maintained on PPI therapy twice daily. Denies weight loss fever or chills. CT abdomen and pelvis reported no evidence of acute changes. Evidence of colonic diverticulosis. No recent EGD. No alcohol. No NSAIDs. White count 8.6-10.8. Hemoglobin 11.9- 12.5. INR 0.9. BUN 19-22. Creatinine 0.6. LFTs within normal limits. Lipase 63. Review of Systems Constitutional: Denies fever, chills, sweats, weight gain, or loss. HEENT: Negative for migraines, blurred vision or loss, earaches, drainage, tinnitus, oral mucosal lesions, dysphagia, or odynophagia. CARDIAC: Negative for chest pain, arrhythmias, or palpitation. RESPIRATORY: Negative for shortness of breath, hemoptysis, cough, or sputum production. GI: See HPI for pertinent findings. : Negative for hematuria, urgency, frequency, polyuria, or dysuria. GYNc: Negative vaginal discharge. MUSCULOSKELETAL: Negative for muscle aches, swelling, arthritis, and arthralgias. NEUROLOGIC: Negative for stroke or TIA. ENDOCRINE: Negative for thyroid problems. SKIN: Negative for rash or itching. PSYCHIATRIC: Negative history for depression and anxiety Past Medical History Past Medical History: Atrial Fibrillation, Chest Pain / Angina, Heart Failure, Diabetes Mellitus, GERD/Reflux, Hyperlipidemia, Hypertension, Osteoarthritis (OA), Respiratory Disorder, Sleep Apnea/CPAP/BIPAP, Thyroid Disorder Additional Past Medical History / Comment(s): DDD WITH BACK PAIN, OCCASIONAL SWELLING IN FEET, USES C-PAP MACHINE. History of Any Multi-Drug Resistant Organisms: None Reported Past Surgical History: Cholecystectomy, Hysterectomy, Joint Replacement Additional Past Surgical History / Comment(s): EGD for gastric reflux. Excision of lipomas. bilateral cataracts, total knee., Pain clinic procedures. Past Anesthesia/Blood Transfusion Reactions: No Reported Reaction Past Psychological History: Anxiety, Depression Smoking Status: Former smoker Past Alcohol Use History: None Reported Additional Past Alcohol Use History / Comment(s): SMOKED 3 PPD. STARTED SMOKING AGE 15, QUIT 35 YEARS AGO Past Drug Use History: None Reported Additional Drug Use History / Comment(s): . - Past Family History Brother(s) Family Medical History: Congestive Heart Failure (CHF), COPD, Coronary Artery Disease (CAD), Diabetes Mellitus Daughter(s) Additional Family Medical History / Comment(s): One from MVA Son(s) Family Medical History: Diabetes Mellitus, Hyperlipidemia, Hypertension Sister(s) Family Medical History: Cancer Mother Family Medical History: Dementia Father Family Medical History: COPD Additional Family Medical History / Comment(s): EMPHYSEMA. Medications and Allergies Home Medications Medication Instructions Recorded Confirmed Type Sertraline [Zoloft] 25 mg PO DAILY 10/18/15 11/30/18 History Apixaban [Eliquis] 2.5 mg PO BID 02/14/16 11/30/18 History Losartan/Hydrochlorothiazide 1 tab PO DAILY 09/02/16 11/30/18 History [Hyzaar 100-25 Tablet] Diltiazem Cd [Cardizem CD] 180 mg PO DAILY #30 cap.er.24h 07/24/18 11/30/18 Rx Pantoprazole Sodium [Protonix] 40 mg PO BID 09/14/18 11/30/18 History Dicyclomine [Bentyl] 10 mg PO AC-BID PRN 11/03/18 11/30/18 History metFORMIN HCL 850 mg PO HS 11/03/18 11/30/18 History Allergies Allergy/AdvReac Type Severity Reaction Status Date / Time aspirin AdvReac Dyspnea,Nausea/Vomiting,Dizzy,Tingling,Warm Verified 11/30/18 18:25 sensation Physical Exam Vitals: Vital Signs Temp Pulse Pulse Resp BP BP Pulse Ox 12/01/18 05:56 98.0 F 87 18 102/62 98 11/30/18 21:30 98.1 F 89 18 116/77 98 11/30/18 21:05 97.7 F 11/30/18 20:45 117/80 11/30/18 20:30 118/81 99 11/30/18 19:30 124/95 98 11/30/18 19:10 124/95 99 11/30/18 19:00 133/89 98 11/30/18 18:16 98.4 F 100 17 142/87 98 Intake and Output 11/30/18 12/01/18 12/01/18 22:59 06:59 14:59 Intake Total 200 200 200 Balance 200 200 200 Intake: Oral 200 200 200 Other: Voiding Method Toilet # Voids 1 1 Weight 106.367 kg NGeneral appearance: The patient is alert, oriented, in no acute distress. HET: Head is normocephalic and atraumatic. Pupils are equal and reactive. Oropharynx is clear without lesions. Neck: Supple without lymphadenopathy. Trachea midline. Heart: S1 S2. Regular rate and rhythm. Lungs: No crackles or wheezes are heard. Abdomen: Soft, moderate tenderness in the midepigastrium, nondistended with bowel sounds. No peritoneal signs. No palpable organomegaly or masses. Extremities: Normal skin color and turgor. No cyanosis, rash, ulceration, clubbing, or edema. Radial and pedal pulses are 2/4 bilaterally. Neurological: No focal deficits. Strength and sensation are grossly intact. Results CBC & Chem 7: 12/01/18 10:35 12/01/18 10:35 Labs: Abnormal Lab Results - Last 24 Hours (Table) 11/30/18 11/30/18 12/01/18 Range/Units 18:28 18:28 10:35 WBC 10.8 H (3.8-10.6) k/uL Neutrophils # 8.1 H (1.3-7.7) k/uL Chloride 97 L (98-107) mmol/L Carbon Dioxide 36 H 38 H (22-30) mmol/L BUN 22 H 19 H (7-17) mg/dL Glucose 100 H 160 H (74-99) mg/dL POC Glucose (mg/dL) (75-99) mg/dL Total Protein 6.0 L 5.8 L (6.3-8.2) g/dL 12/01/18 Range/Units 11:33 WBC (3.8-10.6) k/uL Neutrophils # (1.3-7.7) k/uL Chloride (98-107) mmol/L Carbon Dioxide (22-30) mmol/L BUN (7-17) mg/dL Glucose (74-99) mg/dL POC Glucose (mg/dL) 140 H (75-99) mg/dL Total Protein (6.3-8.2) g/dL CT scan - abdomen: report reviewed (Dr. Lugo) Assessment and Plan (1) Epigastric abdominal pain Narrative/Plan: 88-year-old female with a history of chronic atrial fibrillation maintained on ELIQUIS, CHF, diabetes, GERD, COPD requiring low flow O2 dependency 3 month uses CPAP admitted with persistent epigastric pain greater than one month du ration without bleeding fever weight loss despite PPI therapy. Current Visit: Yes Status: Acute Code(s): R10.13 - EPIGASTRIC PAIN SNOMED Code(s): 48392133 (2) Atrial fibrillation, chronic Current Visit: No Status: Acute Code(s): I48.2 - CHRONIC ATRIAL FIBRILLATION SNOMED Code(s): 467242664 Plan: 1. EGD recommended. Patient received a dose of ELIQUIS last night therefore tentative EGD Tuesday per clinical course, ideally anticoagulation needs to be held 48 hours. Continue Protonix 40 mg twice daily. CBC electrolytes monitoring. Light diet as tolerated. We'll follow with you. 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 The patient has indicated understanding and acceptance of the risks and procedures discussed. Thank you for this kind referral and the opportunity to participate in the care of your patient. This consultation was discussed with Dr. Lugo. The impression and plan of care have been directed as dictated.
[2018-12-01] MEDS: HYDROmorphone 0.5 MG/0.5 ML SYRINGE IVP PRN (14:23)
[2018-12-01] MEDS ORDERED: DICYCLOMINE 10 MG CAP PO PRN (15:39)
[2018-12-01 16:49] LABS: Glucose,Whole Blood 147 mg/dL (75-99)
[2018-12-01 20:54] LABS: Glucose,Whole Blood 112 mg/dL (75-99)
[2018-12-01] MEDS: PANTOPRAZOLE 40 MG TABLET PO SCH (21:00)
[2018-12-01] MEDS: metFORMIN 850 MG TAB PO SCH (21:28)
[2018-12-01] MEDS: SODIUM CHLORIDE 0.9% 1,000 ML IV SCH (21:42)
[2018-12-02] MEDS: HYDROmorphone 0.5 MG/0.5 ML SYRINGE IVP PRN ×5 (00:37→22:34)
[2018-12-02] MEDS: ACETAMINOPHEN TAB 325 MG TAB PO PRN (03:49)
[2018-12-02 07:00] LABS: Glucose,Whole Blood 118 mg/dL (75-99)
[2018-12-02] MEDS: INSULIN ASPART (NovoLOG) 100 UNIT/ML VIAL SQ SCH ×4 (07:02→20:59)
[2018-12-02 07:38] LABS: Basophils % (A) 0 %; Eosinophils # (A) 0.1 k/uL (0-0.7); Eosinophils % (A) 1 %; HCT 40.5 % (34.0-46.0); HGB 12.6 gm/dL (11.4-16.0); Lymphocytes # (A) 3.1 k/uL (1.0-4.8); Lymphocytes % (A) 32 %; MCH 29.4 pg (25.0-35.0); MCV 94.8 fL (80.0-100.0); Mean Platelet Volume 7.5; Monocytes # (A) 0.4 k/uL (0-1.0); Monocytes % (A) 5 %; Neutrophils # (A) 6.1 k/uL (1.3-7.7); Neutrophils % (A) 62 %; Platelet Count 229 k/uL (150-450); RBC 4.27 m/uL (3.80-5.40); RDW 15.2 % (11.5-15.5); WBC 9.9 k/uL (3.8-10.6)
[2018-12-02 07:51] LABS: ALT 28 U/L (9-52); AST 23 U/L (14-36); African American GFR (CKD) >90 (>60 ml/min/1.73 sqM); Albumin 3.8 g/dL (3.5-5.0); Alkaline Phosphatase 50 U/L (38-126); Blood Urea Nitrogen 14 mg/dL (7-17); Chloride 96 mmol/L (98-107); Glucose 109 mg/dL (74-99); Potassium 4.1 mmol/L (3.5-5.1); Sodium 143 mmol/L (137-145); Total Bilirubin 0.6 mg/dL (0.2-1.3); Total Protein 6.3 g/dL (6.3-8.2)
[2018-12-02 07:59] LABS: Anion Gap 6 mmol/L
[2018-12-02 08:02] LABS: Carbon Dioxide 41 mmol/L (22-30)
[2018-12-02] MEDS: HYDROCHLOROTHIAZIDE 25 MG TAB PO SCH (08:57)
[2018-12-02] MEDS: DILTIAZEM CD 180 MG CAP.ER.24H PO SCH (08:58)
[2018-12-02] MEDS: PANTOPRAZOLE 40 MG TABLET PO SCH ×2 (08:58→20:59)
[2018-12-02] MEDS: SERTRALINE 25 MG TAB PO SCH (08:58)
[2018-12-02] MEDS: LOSARTAN 50 MG TAB PO SCH (08:58)
[2018-12-02 11:46] LABS: Glucose,Whole Blood 116 mg/dL (75-99)
[2018-12-02] MEDS: DICYCLOMINE 10 MG CAP PO SCH ×3 (12:17→20:59)
--- NOTE | 2018-12-02 13:08 | P.PN ---
Subjective Progress Note Date: 12/02/18 Principal diagnosis: Epigastric abdominal pain Patient reports that she is feeling slightly better. Continue to have epigastric abdominal pain yesterday which she reports was improved with " a shot". She reports a small bowel movement today. No signs or symptoms of GI bleeding reported. Objective - Vital Signs Vital signs: Vital Signs Temp 97.6 F 12/02/18 07:00 Pulse 90 12/02/18 07:00 Resp 17 12/02/18 09:05 BP 113/80 12/02/18 07:00 Pulse Ox 98 12/02/18 07:00 Intake & Output 12/01/18 12/02/18 12/02/18 18:59 06:59 18:59 Intake Total 400 280 240 Balance 400 280 240 Intake: Oral 400 280 240 Other: Voiding Method Toilet Toilet # Voids 2 1 - Exam On physical examination, patient appears comfortable in no apparent distress. HEAD: Normocephalic, atraumatic. EYES: No scleral icterus. No conjunctival injection. MOUTH: No lesions, tongue midline. NECK: Trachea midline, no gross abnormalities. CHEST: Clear to auscultation with no wheezing or rhonchi appreciated. HEART: S1-S2 appreciated. ABDOMEN: Soft, obese. Bowel sounds are positive. No organomegaly. No guarding or rigidity. EXTREMITIES: No pedal edema, excoriations on left lower extremity wrapped. SKIN: No rashes, no jaundice. NEUROLOGIC: Alert and oriented x3. No focal deficits. - Labs CBC & Chem 7: 12/02/18 06:59 12/02/18 06:59 Labs: Abnormal Lab Results - Last 24 Hours (Table) 12/01/18 12/01/18 12/02/18 Range/Units 16:38 20:41 06:49 Chloride (98-107) mmol/L Carbon Dioxide (22-30) mmol/L Glucose (74-99) mg/dL POC Glucose (mg/dL) 147 H 112 H 118 H (75-99) mg/dL 12/02/18 12/02/18 Range/Units 06:59 11:34 Chloride 96 L (98-107) mmol/L Carbon Dioxide 41 H* (22-30) mmol/L Glucose 109 H (74-99) mg/dL POC Glucose (mg/dL) 116 H (75-99) mg/dL Assessment and Plan (1) Epigastric abdominal pain Narrative/Plan: 88-year-old female with multiple medical comorbidities including chronic atrial fibrillation maintained on Eliquis, CHF, diabetes mellitus, GERD, COPD oxygen- dependent who presented with reports of epigastric pain. The patient reports that the pain has been chronic in nature over the past 1 month with the patient denying any signs of GI bleeding, fever or weight loss. She reports the pain has been persistent in spite of use of PPI therapy. Current Visit: Yes Status: Acute Code(s): R10.13 - EPIGASTRIC PAIN SNOMED Code(s): 09423449 (2) Atrial fibrillation, chronic Current Visit: No Status: Acute Code(s): I48.2 - CHRONIC ATRIAL FIBRILLATION SNOMED Code(s): 425650597 Plan: Supportive care Okay for diet Continue to hold anticoagulation therapy Continue Protonix 40 mg twice daily Continue dicyclomine [id number] Tentative plan for further evaluation with upper endoscopy on 12/04/2018 Thank you for allowing us to participate in the care of the patient we will continue to follow
--- NOTE | 2018-12-02 15:39 | P.PN ---
Subjective Progress Note Date: 12/02/18 This is a 88-year-old female patient who presents with complaints of ongoing epigastric pain. Patient reports that this pain has been occurring over the past year per patient pain has become more constant severe lately. Patient reports that sometimes this occurs right after eating. Patient denies any associated diarrhea or constipation. Patient denies any nausea or vomiting. Patient denies any recent change in bowel habits. Patient does have past medical history of cholecystectomy, atrial fibrillation which she's on eliquis, chest pain, heart failure, diabetes mellitus, GERD, hyperlipidemia, hypertension, osteoarthritis, hypothyroidism, anxiety and ex-smoker. KUB x-ray completed showing nonacute abdomen. Cardiomegaly. No change. Abdominal pelvis CT completed showing sigmoid diverticulosis without definite diverticulitis. There is some minimal free fluid in the pelvic unchanged. Normal appendix. Stable multiple hepatic cyst. Chest x-ray completed showing some pleural diaphragmatic scarring at the left lung base no acute lung disease. No adverse change compared to old exam. Stable mild cardiomegaly. EKG completed showing atrial fibrillation with heart rate of 90. This time patient is resting comfortably bed. Patient denies chest pain or shortness of breath. Patient denies nausea vomiting or diarrhea. Patient denies any urinary burning or frequency. GI services have been consulted On 12/02/2018 patient was seen and examined on the medical floor she is alert an d oriented 3 in no apparent distress she is still complaining of episodes of abdominal pain with abdominal cramping otherwise she denies any complaints at this time there is no fever or chills no headache or dizziness no chest pain no shortness of breath no cough no nausea or vomiting no abdominal pain no diarrhea and no urinary symptoms. Objective - Vital Signs Vital signs: Vital Signs Temp 97.6 F 12/02/18 07:00 Pulse 90 12/02/18 07:00 Resp 17 12/02/18 09:05 BP 113/80 12/02/18 07:00 Pulse Ox 98 12/02/18 07:00 Intake & Output 12/01/18 12/02/18 12/02/18 18:59 06:59 18:59 Intake Total 400 280 240 Balance 400 280 240 Intake: Oral 400 280 240 Other: Voiding Method Toilet Toilet # Voids 2 1 - Exam In general patient is alert and oriented 3 in no apparent distress Head normocephalic and atraumatic Neck supple no JVD no goiter Lungs clear to auscultation bilaterally no wheezing or crackles Heart regular rate and rhythm S1-S2, no rub or gallop Abdomen is soft round nontender nondistended positive bowel sounds no hepatosplenomegaly Extremities no edema no cyanosis or clubbing Neuro no gross focal neurological deficit - Labs CBC & Chem 7: 12/02/18 06:59 12/02/18 06:59 Labs: Abnormal Lab Results - Last 24 Hours (Table) 12/01/18 12/01/18 12/01/18 Range/Units 10:35 11:33 16:38 Chloride 97 L (98-107) mmol/L Carbon Dioxide 38 H (22-30) mmol/L BUN 19 H (7-17) mg/dL Glucose 160 H (74-99) mg/dL POC Glucose (mg/dL) 140 H 147 H (75-99) mg/dL Total Protein 5.8 L (6.3-8.2) g/dL 12/01/18 12/02/18 12/02/18 Range/Units 20:41 06:49 06:59 Chloride 96 L (98-107) mmol/L Carbon Dioxide 41 H* (22-30) mmol/L BUN (7-17) mg/dL Glucose 109 H (74-99) mg/dL POC Glucose (mg/dL) 112 H 118 H (75-99) mg/dL Total Protein (6.3-8.2) g/dL Assessment and Plan Plan: 1. Abdominal pain. Abdominal pelvic CT completed showing sigmoid diverticulosis without definite diverticulitis. There is some minimal free fluid in the pelvic unchanged. Normal appendix. Stable multiple hepatic cyst. KUB x-ray completed showing nonacute abdomen. Cardiomegaly. No change. Amylase and lipase within normal limits. GI services have been consulted. Patient on Protonix twice a day. 2. History of chronic persistent nature fibrillation. Patient maintained on eliquis 3. History of diabetes mellitus type 2. Home medications resumed sliding scale coverage added 4. History of GERD 5. History of essential hypertension 6. History of osteoarthritis 7. History of sleep apnea 8. History of depression 9. History of COPD DVT prophylaxis eliquis. GI prophylaxis Protonix Patient is off liquids at this time possible EGD and colonoscopy on Tuesday
[2018-12-02 17:12] LABS: Glucose,Whole Blood 115 mg/dL (75-99)
[2018-12-02 20:35] LABS: Glucose,Whole Blood 183 mg/dL (75-99)
[2018-12-02] MEDS: SODIUM CHLORIDE 0.9% 1,000 ML IV SCH (20:55)
[2018-12-02] MEDS: metFORMIN 850 MG TAB PO SCH (20:59)
[2018-12-03] MEDS: HYDROmorphone 0.5 MG/0.5 ML SYRINGE IVP PRN ×3 (07:14→22:33)
[2018-12-03] MEDS: HYDROCHLOROTHIAZIDE 25 MG TAB PO SCH (07:51)
[2018-12-03] MEDS: LOSARTAN 50 MG TAB PO SCH (07:52)
[2018-12-03] MEDS: PANTOPRAZOLE 40 MG TABLET PO SCH ×2 (07:52→22:32)
[2018-12-03] MEDS: DICYCLOMINE 10 MG CAP PO SCH ×3 (07:52→22:32)
[2018-12-03] MEDS: SERTRALINE 25 MG TAB PO SCH (07:52)
[2018-12-03] MEDS: INSULIN ASPART (NovoLOG) 100 UNIT/ML VIAL SQ SCH ×4 (07:55→22:33)
[2018-12-03 07:58] LABS: Basophils % (A) 0 %; Eosinophils # (A) 0.1 k/uL (0-0.7); Eosinophils % (A) 1 %; HCT 41.4 % (34.0-46.0); Lymphocytes # (A) 2.5 k/uL (1.0-4.8); Lymphocytes % (A) 27 %; MCH 29.7 pg (25.0-35.0); MCHC 31.5 g/dL (31.0-37.0); MCV 94.2 fL (80.0-100.0); Mean Platelet Volume 7.5; Monocytes # (A) 0.4 k/uL (0-1.0); Monocytes % (A) 4 %; Neutrophils # (A) 6.1 k/uL (1.3-7.7); Neutrophils % (A) 66 %; Platelet Count 241 k/uL (150-450); RBC 4.39 m/uL (3.80-5.40); RDW 14.4 % (11.5-15.5); WBC 9.3 k/uL (3.8-10.6)
[2018-12-03 08:01] LABS: Glucose,Whole Blood 110 mg/dL (75-99)
[2018-12-03] MEDS: DILTIAZEM CD 180 MG CAP.ER.24H PO SCH (08:13)
[2018-12-03 08:17] LABS: ALT 27 U/L (9-52); AST 19 U/L (14-36); African American GFR (CKD) >90 (>60 ml/min/1.73 sqM); Albumin 3.7 g/dL (3.5-5.0); Alkaline Phosphatase 51 U/L (38-126); Blood Urea Nitrogen 18 mg/dL (7-17); Calcium 9.1 mg/dL (8.4-10.2); Chloride 97 mmol/L (98-107); Glucose 111 mg/dL (74-99); Potassium 4.4 mmol/L (3.5-5.1); Sodium 142 mmol/L (137-145); Total Bilirubin 0.7 mg/dL (0.2-1.3); Total Protein 6.2 g/dL (6.3-8.2)
[2018-12-03 08:23] LABS: Anion Gap 6 mmol/L; Carbon Dioxide 39 mmol/L (22-30)
[2018-12-03 11:28] LABS: Glucose,Whole Blood 126 mg/dL (75-99)
[2018-12-03] MEDS: MUPIROCIN 2% OINT 22 GM TUBE TOPICAL SCH (15:18)
[2018-12-03 17:05] LABS: Glucose,Whole Blood 124 mg/dL (75-99)
--- NOTE | 2018-12-03 19:12 | P.PN ---
Subjective Progress Note Date: 12/03/18 Principal diagnosis: Epigastric abdominal pain The patient is seen lying in bed, still reporting some abdominal pain. No nausea or vomiting reported. She has tolerated diet. Objective - Vital Signs Vital signs: Vital Signs Temp 98.4 F 12/03/18 14:30 Pulse 79 12/03/18 14:30 Resp 16 12/03/18 14:30 BP 120/76 12/03/18 14:30 Pulse Ox 99 12/03/18 14:30 Intake & Output 12/03/18 12/03/18 12/04/18 06:59 18:59 06:59 Intake Total 560 Balance 560 Intake: Oral 560 Other: # Voids 2 - Exam On physical examination, patient appears comfortable in no apparent distress. HEAD: Normocephalic, atraumatic. EYES: No scleral icterus. No conjunctival injection. MOUTH: No lesions, tongue midline. NECK: Trachea midline, no gross abnormalities. ABDOMEN: Soft, obese. Bowel sounds are positive. No organomegaly. No guarding or rigidity. EXTREMITIES: No pedal edema, excoriations on left lower extremity wrapped. SKIN: No rashes, no jaundice. NEUROLOGIC: Alert and oriented x3. No focal deficits. - Labs CBC & Chem 7: 12/03/18 07:15 12/03/18 07:15 Labs: Abnormal Lab Results - Last 24 Hours (Table) 12/02/18 12/03/18 12/03/18 Range/Units 20:24 07:15 07:55 Chloride 97 L (98-107) mmol/L Carbon Dioxide 39 H (22-30) mmol/L BUN 18 H (7-17) mg/dL Glucose 111 H (74-99) mg/dL POC Glucose (mg/dL) 183 H 110 H (75-99) mg/dL Total Protein 6.2 L (6.3-8.2) g/dL 12/03/18 12/03/18 Range/Units 11:25 17:02 Chloride (98-107) mmol/L Carbon Dioxide (22-30) mmol/L BUN (7-17) mg/dL Glucose (74-99) mg/dL POC Glucose (mg/dL) 126 H 124 H (75-99) mg/dL Total Protein (6.3-8.2) g/dL Assessment and Plan (1) Epigastric abdominal pain Narrative/Plan: 88-year-old female with multiple medical comorbidities including chronic atrial fibrillation maintained on Eliquis, CHF, diabetes mellitus, GERD, COPD oxygen- dependent who presented with reports of epigastric pain. The patient reports that the pain has been chronic in nature over the past 1 month with the patient denying any signs of GI bleeding, fever or weight loss. She reports the pain has been persistent in spite of use of PPI therapy. Current Visit: Yes Status: Acute Code(s): R10.13 - EPIGASTRIC PAIN SNOMED Code(s): 25062234 (2) Atrial fibrillation, chronic Current Visit: No Status: Acute Code(s): I48.2 - CHRONIC ATRIAL FIBRILLATION SNOMED Code(s): 499053297 Plan: Supportive care Okay for diet Continue to hold anticoagulation therapy Continue Protonix 40 mg twice daily Continue dicyclomine [id number] Plan for further evaluation with upper endoscopy on 12/04/2018 Thank you for allowing us to participate in the care of the patient we will continue to follow
[2018-12-03 20:40] LABS: Glucose,Whole Blood 132 mg/dL (75-99)
[2018-12-03] MEDS: SODIUM CHLORIDE 0.9% 1,000 ML IV SCH (22:33)
[2018-12-03] MEDS: metFORMIN 850 MG TAB PO SCH (22:41)
[2018-12-04] MEDS: HYDROmorphone 0.5 MG/0.5 ML SYRINGE IVP PRN (07:26)
[2018-12-04 07:30] LABS: Glucose,Whole Blood 121 mg/dL (75-99)
[2018-12-04] MEDS: INSULIN ASPART (NovoLOG) 100 UNIT/ML VIAL SQ SCH ×2 (07:36→13:22)
[2018-12-04] MEDS: SERTRALINE 25 MG TAB PO SCH (07:37)
[2018-12-04] MEDS: PANTOPRAZOLE 40 MG TABLET PO SCH (07:37)
[2018-12-04] MEDS: HYDROCHLOROTHIAZIDE 25 MG TAB PO SCH (07:37)
[2018-12-04] MEDS: DICYCLOMINE 10 MG CAP PO SCH ×2 (07:37→15:25)
[2018-12-04] MEDS: LOSARTAN 50 MG TAB PO SCH (07:37)
[2018-12-04] MEDS: DILTIAZEM CD 180 MG CAP.ER.24H PO SCH (07:38)
[2018-12-04] MEDS: MUPIROCIN 2% OINT 22 GM TUBE TOPICAL SCH (07:38)
[2018-12-04 08:47] LABS: Basophils % (A) 0 %; Eosinophils # (A) 0.1 k/uL (0-0.7); Eosinophils % (A) 1 %; HCT 38.7 % (34.0-46.0); HGB 12.2 gm/dL (11.4-16.0); Lymphocytes # (A) 2.1 k/uL (1.0-4.8); Lymphocytes % (A) 24 %; MCH 29.9 pg (25.0-35.0); MCHC 31.6 g/dL (31.0-37.0); MCV 94.6 fL (80.0-100.0); Mean Platelet Volume 7.2; Monocytes # (A) 0.4 k/uL (0-1.0); Monocytes % (A) 5 %; Neutrophils # (A) 6.1 k/uL (1.3-7.7); Neutrophils % (A) 70 %; Platelet Count 231 k/uL (150-450); RBC 4.09 m/uL (3.80-5.40); RDW 13.8 % (11.5-15.5); WBC 8.7 k/uL (3.8-10.6)
[2018-12-04 09:00] LABS: ALT 24 U/L (9-52); AST 22 U/L (14-36); African American GFR (CKD) >90 (>60 ml/min/1.73 sqM); Albumin 3.7 g/dL (3.5-5.0); Alkaline Phosphatase 49 U/L (38-126); Anion Gap 6 mmol/L; Blood Urea Nitrogen 18 mg/dL (7-17); Calcium 8.9 mg/dL (8.4-10.2); Carbon Dioxide 36 mmol/L (22-30); Chloride 99 mmol/L (98-107); Glucose 115 mg/dL (74-99); Potassium 4.3 mmol/L (3.5-5.1); Sodium 141 mmol/L (137-145); Total Bilirubin 0.5 mg/dL (0.2-1.3); Total Protein 6.2 g/dL (6.3-8.2)
--- NOTE | 2018-12-04 11:07 | P.PN ---
Subjective Progress Note Date: 12/04/18 This is a 88-year-old female patient who presents with complaints of ongoing epigastric pain. Patient reports that this pain has been occurring over the past year per patient pain has become more constant severe lately. Patient reports that sometimes this occurs right after eating. Patient denies any associated diarrhea or constipation. Patient denies any nausea or vomiting. Patient denies any recent change in bowel habits. Patient does have past medical history of cholecystectomy, atrial fibrillation which she's on eliquis, chest pain, heart failure, diabetes mellitus, GERD, hyperlipidemia, hypertension, osteoarthritis, hypothyroidism, anxiety and ex-smoker. KUB x-ray completed showing nonacute abdomen. Cardiomegaly. No change. Abdominal pelvis CT completed showing sigmoid diverticulosis without definite diverticulitis. There is some minimal free fluid in the pelvic unchanged. Normal appendix. Stable multiple hepatic cyst. Chest x-ray completed showing some pleural diaphragmatic scarring at the left lung base no acute lung disease. No adverse change compared to old exam. Stable mild cardiomegaly. EKG completed showing atrial fibrillation with heart rate of 90. This time patient is resting comfortably bed. Patient denies chest pain or shortness of breath. Patient denies nausea vomiting or diarrhea. Patient denies any urinary burning or frequency. GI services have been consulted On 12/02/2018 patient was seen and examined on the medical floor she is alert an d oriented 3 in no apparent distress she is still complaining of episodes of abdominal pain with abdominal cramping otherwise she denies any complaints at this time there is no fever or chills no headache or dizziness no chest pain no shortness of breath no cough no nausea or vomiting no abdominal pain no diarrhea and no urinary symptoms. On 12/04/2018 patient is alert and oriented 3. Patient is still having some abdominal discomfort. Patient to have EGD done today per GI services. At this time patient denies chest pain or shortness breath. Patient denies nausea vomiting or diarrhea. Patient denies any urinary burning or frequency Objective - Vital Signs Vital signs: Vital Signs Temp 97.9 F 12/04/18 05:00 Pulse 87 12/04/18 05:00 Resp 18 12/04/18 05:00 BP 114/68 12/04/18 05:00 Pulse Ox 98 12/04/18 05:00 Intake & Output 12/03/18 12/04/18 12/04/18 18:59 06:59 18:59 Intake Total 300 Balance 300 Weight 86 kg Intake: Oral 300 Other: # Voids 2 2 - Exam In general patient is alert and oriented 3 in no apparent distress Head normocephalic and atraumatic Neck supple no JVD no goiter Lungs clear to auscultation bilaterally no wheezing or crackles Heart regular rate and rhythm S1-S2, no rub or gallop Abdomen is soft round nontender nondistended positive bowel sounds no hepatosplenomegaly Extremities no edema no cyanosis or clubbing Neuro no gross focal neurological deficit - Labs CBC & Chem 7: 12/04/18 08:09 12/04/18 08:09 Labs: Abnormal Lab Results - Last 24 Hours (Table) 12/03/18 12/03/18 12/03/18 Range/Units 11:25 17:02 20:37 Carbon Dioxide (22-30) mmol/L BUN (7-17) mg/dL Glucose (74-99) mg/dL POC Glucose (mg/dL) 126 H 124 H 132 H (75-99) mg/dL Total Protein (6.3-8.2) g/dL 12/04/18 12/04/18 Range/Units 07:04 08:09 Carbon Dioxide 36 H (22-30) mmol/L BUN 18 H (7-17) mg/dL Glucose 115 H (74-99) mg/dL POC Glucose (mg/dL) 121 H (75-99) mg/dL Total Protein 6.2 L (6.3-8.2) g/dL Assessment and Plan Assessment: 1. Abdominal pain. Abdominal pelvic CT completed showing sigmoid diverticulosis without definite diverticulitis. There is some minimal free fluid in the pelvic unchanged. Normal appendix. Stable multiple hepatic cyst. KUB x-ray completed showing nonacute abdomen. Cardiomegaly. No change. Amylase and lipase within normal limits. GI services have been consulted. Patient on Protonix twice a day. 2. History of chronic persistent nature fibrillation. Eliquis currently on hold per GI services for EGD 3. History of diabetes mellitus type 2. Home medications resumed sliding scale coverage added 4. History of GERD 5. History of essential hypertension 6. History of osteoarthritis 7. History of sleep apnea 8. History of depression 9. History of COPD DVT prophylaxis SCDs. GI prophylaxis Protonix I performed an examination of the patient and discussed their management with the Nurse Practitioner. I have reviewed the Nurse Practitioner's notes and agree with the documented findings and plan of care
[2018-12-04 12:30] LABS: Glucose,Whole Blood 113 mg/dL (75-99)
[2018-12-04] MEDS ORDERED: PROPOFOL 10 MG/ML 20 ML VIAL IV ONE (13:32)
[2018-12-04] MEDS ORDERED: IV FLUID CONTINUATION 1,000 ML IV ONE (13:50)
--- NOTE | 2018-12-04 14:00 | P.PCN ---
Date of Procedure: 12/04/18 Description of Procedure: BRIEF HISTORY: 88-year-old female with a history of atrial fibrillation maintained on ELIQUIS, COPD/CPAP with requirement of low flow O2 dependency 3 months, CHF, diabetes mellitus, hypertension, hyperlipidemia, GERD, sleep apnea, hypothyroidism, presents with persistent epigastric pain at least one month duration without nausea vomiting hematemesis hematochezia or melena maintained on PPI therapy twice daily. Denies weight loss fever or chills. CT abdomen and pelvis reported no evidence of acute changes. Evidence of colonic diverticulosis. No recent EGD. No alcohol. No NSAIDs. White count 8.6-10.8. Hemoglobin 11.9-12.5. INR 0.9. BUN 19-22. Creatinine 0.6. LFTs within normal limits. Lipase 63.. PROCEDURE PERFORMED: Esophagogastroduodenoscopy with biopsy. PREOPERATIVE DIAGNOSIS: Epigastric abdominal pain ETIMATED BLOOD LOSS: Minimal. IV sedation per anesthesia. PROCEDURE: After informed consent was obtained, the patient was brought into the endoscopy unit. IV sedation was administered by Anesthesia under continuous monitoring. Initially the Olympus GIF-190 video endoscope was inserted into the mouth. Esophagus intubated without any difficulty. It was gradually advanced into the stomach and duodenum and carefully examined. The bulb and the second part of the duodenum appeared normal with biopsies taken. The scope at this time was withdrawn to the stomach, adequately insufflated with air, and upon careful examination, mucosa of the antrum, body, cardia and the fundus appeared normal with diffuse erythema suggestive of mild gastritis with biopsies of the antrum body and cardia/fundus taken. Small hiatal hernia noted. The scope was then withdrawn into the esophagus. The GE junction was located at 39 cm from the incisors. The esophagus appeared normal. There were no erosions or ulcerations seen and the patient tolerated the procedure well. IMPRESSION: 1. Mild gastritis with biopsies of the antrum/body and cardia/fundus taken. 2. Duodenal biopsies. 3. Small hiatal hernia. RECOMMENDATIONS: The findings of this examination were discussed with the patient and her daughter. Await pathology from biopsies. Continue Protonix 40 mg twice daily. Continue Bentyl as needed for abdominal pain. Okay to resume Eliquis.
--- NOTE | 2018-12-04 15:22 | P.DS ---
Providers Date of admission: 12/03/18 23:44 Expected date of discharge: 12/04/18 Attending physician: Kareem Issa Consults: 11/30/18 20:34 Consult Physician Routine Consulting Provider: Drake Lugo Consult Reason/Comments: Epigastric abdominal pain Do you want consulting provider notified?: Yes Primary care physician: Kareem Issa [facility] Course: Discharge diagnosis 1. Abdominal pain. Abdominal pelvic CT completed showing sigmoid diverticulosis without definite diverticulitis. There is some minimal free fluid in the pelvic unchanged. Normal appendix. Stable multiple hepatic cyst. KUB x-ray completed showing nonacute abdomen. Cardiomegaly. No change. Amylase and lipase within normal limits. GI services have been consulted. Patient on Protonix twice a day. Patient underwent EGD today with GI services finding showing mild gastritis, duodenal biopsies and small hital hernia. Discussed with GI services. Okay for discharge. Patient should be okay to resume eliquis today 2. History of chronic persistent nature fibrillation. Eliquis currently on hold per GI services for EGD. Okay to resume eliquis today per GI services 3. History of diabetes mellitus type 2. Home medications resumed sliding scale coverage added 4. History of GERD 5. History of essential hypertension 6. History of osteoarthritis 7. History of sleep apnea 8. History of depression 9. History of COPD Hospital course This is a 88-year-old female patient who presents with complaints of ongoing epigastric pain. Patient reports that this pain has been occurring over the past year per patient pain has become more constant severe lately. Patient reports that sometimes this occurs right after eating. Patient denies any associated diarrhea or constipation. Patient denies any nausea or vomiting. Patient denies any recent change in bowel habits. Patient does have past medical history of cholecystectomy, atrial fibrillation which she's on eliquis, chest pain, heart failure, diabetes mellitus, GERD, hyperlipidemia, hypertension, osteoarthritis, hypothyroidism, anxiety and ex-smoker. KUB x-ray completed showing nonacute abdomen. Cardiomegaly. No change. Abdominal pelvis CT completed showing sigmoid diverticulosis without definite diverticulitis. There is some minimal free fluid in the pelvic unchanged. Normal appendix. Stable multiple hepatic cyst. Chest x-ray completed showing some pleural diaphragmatic scarring at the left lung base no acute lung disease. No adverse change compared to old exam. Stable mild cardiomegaly. EKG completed showing atrial fibrillation with heart rate of 90. This time patient is resting comfortably bed. Patient denies chest pain or shortness of breath. Patient denies nausea vomiting or diarrhea. Patient denies any urinary burning or frequency. GI services have been consulted On 12/02/2018 patient was seen and examined on the medical floor she is alert and oriented 3 in no apparent distress she is still complaining of episodes of abdominal pain with abdominal cramping otherwise she denies any complaints at this time there is no fever or chills no headache or dizziness no chest pain no shortness of breath no cough no nausea or vomiting no abdominal pain no diarrhea and no urinary symptoms. On 12/04/2018 patient is alert and oriented 3. Patient is still having some abdominal discomfort. Patient to have EGD done today per GI services. At this time patient denies chest pain or shortness breath. Patient denies nausea vomiting or diarrhea. Patient denies any urinary burning or frequency Patient has been cleared for discharge from GI services. Patient underwent EGD. Findings above. Discussed case with Dr. gaxiola with GI team. Okay to resume eliquis today. Patient feels ready to be discharged home. Patient denies chest pain or shortness of breath. Patient denies nausea vomiting or diarrhea. Patient denies any urinary burning or frequency. continue Bentyl 3 times a day as scheduled I performed an examination of the patient and discussed their management with the Nurse Practitioner. I have reviewed the Nurse Practitioner's notes and agree with the documented findings and plan of care Patient Condition at Discharge: Stable Plan - Discharge Summary New Discharge Prescriptions: No Action Sertraline [Zoloft] 25 mg PO DAILY Apixaban [Eliquis] 2.5 mg PO BID Losartan/Hydrochlorothiazide [Hyzaar 100-25 Tablet] 1 tab PO DAILY Diltiazem Cd [Cardizem CD] 180 mg PO DAILY #30 cap.er.24h Pantoprazole Sodium [Protonix] 40 mg PO BID metFORMIN HCL 850 mg PO HS Dicyclomine [Bentyl] 10 mg PO AC-BID PRN PRN Reason: stomach cramps Discharge Medication List Sertraline [Zoloft] 25 mg PO DAILY 10/18/15 [History] Apixaban [Eliquis] 2.5 mg PO BID 02/14/16 [History] Losartan/Hydrochlorothiazide [Hyzaar 100-25 Tablet] 1 tab PO DAILY 09/02/16 [History] Diltiazem Cd [Cardizem CD] 180 mg PO DAILY #30 cap.er.24h 07/24/18 [Rx] Pantoprazole Sodium [Protonix] 40 mg PO BID 09/14/18 [History] Dicyclomine [Bentyl] 10 mg PO AC-BID PRN 11/03/18 [History] metFORMIN HCL 850 mg PO HS 11/03/18 [History] Follow up Appointment(s)/Referral(s): Kareem Issa MD [Primary Care Provider] - 1-2 days [facility] Visiting Nurse, [NON-STAFF] -
[2018-12-04] MEDS: ACETAMINOPHEN TAB 325 MG TAB PO PRN (15:28)
[2018-12-04 15:42] VITALS: RESP 20; TEMP 98.2
[2018-12-04 15:43] VITALS: BP 110/54; PULSE 86
== END 2018-12-04 17:08 | disposition home health service (06) | DRG 392 ==
LOC: EC 18:08 → 4MS4W 20:34 → 4SSUR 12-01 15:51 → 4MS4W 12-03 07:15 → OBSVTOIN 12-03 23:44
PROVIDERS: ADMIT Internal Medicine; ATTEND Internal Medicine
PROC: 0DB78ZX Excision of Stomach, Pylorus, Via Natural or Artificial Opening Endoscopic, Diagnostic (ICD-10-PCS; principal; 2018-12-04 09:30)
PROC: 0DB98ZX Excision of Duodenum, Via Natural or Artificial Opening Endoscopic, Diagnostic (ICD-10-PCS; principal; 2018-12-04 09:30)
PROC: 0DB68ZX Excision of Stomach, Via Natural or Artificial Opening Endoscopic, Diagnostic (ICD-10-PCS; principal; 2018-12-04 09:30)
DX: K57.30 Diverticulosis of large intestine without perforation or abscess without bleeding (principal); I48.1 Persistent atrial fibrillation; Z68.41 Body mass index [BMI] 40.0-44.9, adult; K29.70 Gastritis, unspecified, without bleeding; I11.0 Hypertensive heart disease with heart failure; I50.9 Heart failure, unspecified; J44.9 Chronic obstructive pulmonary disease, unspecified; E11.9 Type 2 diabetes mellitus without complications; K76.89 Other specified diseases of liver; E66.9 Obesity, unspecified; K44.9 Diaphragmatic hernia without obstruction or gangrene; K21.9 Gastro-esophageal reflux disease without esophagitis; E03.9 Hypothyroidism, unspecified; E78.5 Hyperlipidemia, unspecified; F32.9 Major depressive disorder, single episode, unspecified; F41.9 Anxiety disorder, unspecified; M19.90 Unspecified osteoarthritis, unspecified site; G47.30 Sleep apnea, unspecified; M54.9 Dorsalgia, unspecified; Z99.81 Dependence on supplemental oxygen; Z79.01 Long term (current) use of anticoagulants; Z79.84 Long term (current) use of oral hypoglycemic drugs; Z79.899 Other long term (current) drug therapy; Z87.891 Personal history of nicotine dependence; Z99.89 Dependence on other enabling machines and devices; Z96.659 Presence of unspecified artificial knee joint; Z90.49 Acquired absence of other specified parts of digestive tract; Z90.710 Acquired absence of both cervix and uterus; Z98.890 Other specified postprocedural states; Z98.42 Cataract extraction status, left eye; Z98.41 Cataract extraction status, right eye; Z88.6 Allergy status to analgesic agent; Z82.49 Family history of ischemic heart disease and other diseases of the circulatory system; Z82.5 Family history of asthma and other chronic lower respiratory diseases; Z83.3 Family history of diabetes mellitus; Z81.8 Family history of other mental and behavioral disorders; Z80.9 Family history of malignant neoplasm, unspecified
CPT/HCPCS: 36415; 43239; 71046; 74018; 74177; 80053; 81003; 82150; 83605; 83690; 84484; 85025; 85610; 85730; 88305; 93005; 96374; 96375; 99285

== ENCOUNTER → 2018-12-14 | Outpatient (CLI) | payer MEDICARE, OTHER ==
--- NOTE | 2018-12-14 19:11 | MR ---
EXAMINATION TYPE: MR lumbar spine wo con DATE OF EXAM: 12/14/2018 COMPARISON: NONE HISTORY: Pain TECHNIQUE: T1 and T2 axial and sagittal images of the lumbar spine are submitted. FINDINGS: There is no abnormal signal seen within the visualized spinal cord or paraspinal soft tissu es. There is severe degenerative disc disease at all levels with hypertrophic spurring. Slight curvature of the spine noted. At T12-L1 there is a large anterior hypertrophic spur. 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 Hy pertrophic endplate spurring is seen in there is mild disc bulging but no canal stenosis or foraminal encroachment. At L1-2 there is advanced facet arthropathy with circumferential disc bulging. Endplate spurring is n oted. Mild left foraminal encroachment and moderate right foraminal encroachment due to right lateral and paracentral disc bulging. At L2-3 there is diffuse disc bulging with hypertrophic changes and ligamentum flavum and facet joint s. There is moderate bilateral foraminal encroachment greater on the right. There is moderate central stenosis. At L3-4 there is there is a moderate-sized central disc herniation extends superiorly and posterior t o the L3 vertebral segment compatible with diffuse extruded disc fragment. There is significant theca l sac compression, facet arthropathy, ligamentum flavum hypertrophy and additional disc bulging resul ting in severe canal stenosis. Minimal anterolisthesis L3 on L4. At L4-5 there is a diffuse disc bulging with advanced facet arthropathy and hypertrophy ligamentum fl avum. Moderate to severe left foraminal encroachment and moderate right foraminal encroachment. Disc bulging extends a greater laterally to the left. Facet arthropathy and ligamentum flavum hypertrophy contribute to moderate to severe central stenosis. At L5-S1 there is diffuse disc bulging with a localized central broad-based disc fusion. There is fac et arthropathy and moderate canal stenosis and moderate to severe bilateral foraminal encroachment. Simple appearing cyst within the right kidney. Thickening of the left adrenal gland suggestive of hyp erplasia. IMPRESSION: 1. Severe degenerative disc disease at all levels with disc bulging, hypertrophic spurring, ligamentu m flavum hypertrophy and facet arthropathy contributing to multilevel canal stenosis and foraminal en croachment as discussed above. 2. There is a moderate-sized central disc herniation L3-L4 with extruded disc fragment extending supe riorly and posterior to the L3 vertebral body. This results in severe compression of the thecal sac. 3. There are mixed density lesions involving the right kidney lower pole which has fluid fluid levels likely representing hemorrhagic cysts. The largest one measures approximately 8 mm. 4. Multilevel significant foraminal encroachment with probable nerve root impingement.
[2018-12-15 20:11] LABS: Glucose,Whole Blood 117 mg/dL (75-99)
[2018-12-15 20:35] LABS: Glucose,Whole Blood 91 mg/dL (75-99)
== END | disposition home or self-care (01) ==
LOC: RADMRIMAIN 14:11
PROVIDERS: ATTEND Physical Medicine & Rehabilitation
DX: M48.061 Spinal stenosis, lumbar region without neurogenic claudication (principal); M48.07 Spinal stenosis, lumbosacral region; M51.17 Intervertebral disc disorders with radiculopathy, lumbosacral region; M51.16 Intervertebral disc disorders with radiculopathy, lumbar region; M46.96 Unspecified inflammatory spondylopathy, lumbar region; M46.97 Unspecified inflammatory spondylopathy, lumbosacral region; K21.9 Gastro-esophageal reflux disease without esophagitis; E11.9 Type 2 diabetes mellitus without complications; Z99.81 Dependence on supplemental oxygen; Z96.652 Presence of left artificial knee joint
CPT/HCPCS: 72148

== ENCOUNTER 2018-12-15 19:45 | Inpatient (IN) | payer MEDICARE, OTHER ==
[2018-12-15] MEDS ORDERED: SODIUM CHLORIDE 0.9% 1,000 ML IV STA (20:19)
--- NOTE | 2018-12-15 20:38 | ED ---
General Adult HPI - General Source: patient, EMS, RN notes reviewed Mode of arrival: EMS <Jens Hunter - Last Filed: 12/15/18 20:46> <Hector Carey - Last Filed: 12/15/18 23:13> - General Chief complaint: Weakness Stated complaint: Weakness Time Seen by Provider: 12/15/18 19:50 - History of Present Illness Initial comments: This is an 88-year-old female who presents to the emergency department with a history of diabetes but is only on oral medication. Patient states she has been extremely weak for the last couple of weeks but over the last day she has been very weak. When EMS arrived she was very tired she could move all of her extremities had an NIH 0 but was just generally weak. Patient's blood sugar that time was 35. Patient denies any fever or chills. Patient denies a cough. Patient denies any chest pain difficulty breathing shortness of breath. Patient states she took Mylanta yesterday and started having diarrhea today quite heavily. Patient states she has not been able to eat lately because she's been quite nauseous but has had no vomiting. Patient denies any lightheadedness or dizziness. Patient states overall she is extremely weak and just does not feel well. (Jens Hunter) - Related Data Home Medications Medication Instructions Recorded Confirmed Sertraline [Zoloft] 25 mg PO DAILY 10/18/15 12/15/18 Apixaban [Eliquis] 2.5 mg PO BID 02/14/16 12/15/18 Losartan/Hydrochlorothiazide 1 tab PO DAILY 09/02/16 12/15/18 [Hyzaar 100-25 Tablet] Pantoprazole Sodium [Protonix] 40 mg PO BID 09/14/18 12/15/18 metFORMIN HCL 850 mg PO HS 11/03/18 12/15/18 HYDROcodone/APAP 7.5-325MG [[place] 1 tab PO BID 12/15/18 12/15/18 7.5-325] glipiZIDE [Glucotrol] 5 mg PO BID@1300,1800 12/15/18 12/15/18 Previous Rx's Medication Instructions Recorded Diltiazem Cd [Cardizem CD] 180 mg PO DAILY #30 cap.er.24h 07/24/18 Cephalexin [Keflex] 500 mg PO Q8HR 7 Days #21 cap 12/04/18 Dicyclomine [Bentyl] 10 mg PO TID 30 Days #90 cap 12/04/18 Allergies Allergy/AdvReac Type Severity Reaction Status Date / Time aspirin AdvReac Dyspnea,Nausea/Vomiting,Dizzy,Tingling,Warm Verified 12/15/18 20:51 sensation Review of Systems ROS Other: All systems not noted in ROS Statement are negative. <Jens Hunter - Last Filed: 12/15/18 20:46> ROS Other: All systems not noted in ROS Statement are negative. <Hector Carey - Last Filed: 12/15/18 23:13> ROS Statement: Those systems with pertinent positive or pertinent negative responses have been documented in the HPI. Past Medical History Past Medical History: Atrial Fibrillation, Chest Pain / Angina, Heart Failure, Diabetes Mellitus, GERD/Reflux, Hyperlipidemia, Hypertension, Osteoarthritis (OA), Respiratory Disorder, Sleep Apnea/CPAP/BIPAP, Thyroid Disorder Additional Past Medical History / Comment(s): DDD WITH BACK PAIN, OCCASIONAL SWELLING IN FEET, USES C-PAP MACHINE. History of Any Multi-Drug Resistant Organisms: None Reported Past Surgical History: Cholecystectomy, Hysterectomy, Joint Replacement Additional Past Surgical History / Comment(s): EGD for gastric reflux. Excision of lipomas. bilateral cataracts, total knee., Pain clinic procedures. Past Anesthesia/Blood Transfusion Reactions: No Reported Reaction Past Psychological History: Anxiety, Depression Smoking Status: Former smoker Past Alcohol Use History: None Reported Past Drug Use History: None Reported - Past Family History Brother(s) Family Medical History: Congestive Heart Failure (CHF), COPD, Coronary Artery Disease (CAD), Diabetes Mellitus Daughter(s) Additional Family Medical History / Comment(s): One from MVA Son(s) Family Medical History: Diabetes Mellitus, Hyperlipidemia, Hypertension Sister(s) Family Medical History: Cancer Mother Family Medical History: Dementia Father Family Medical History: COPD Additional Family Medical History / Comment(s): EMPHYSEMA. <Jens Hunter - Last Filed: 12/15/18 20:46> General Exam <Jens Hunter - Last Filed: 12/15/18 20:46> - General Exam Comments Initial Comments: GENERAL: Patient is well-developed and well-nourished. Patient is nontoxic and well- hydrated and is in mild distress. ENT: Neck is soft and supple. No significant lymphadenopathy is noted. Oropharynx is clear. Moist mucous membranes. Neck has full range of motion without eliciting any pain. EYES: The sclera were anicteric and conjunctiva were pink and moist. Extraocular movements were intact and pupils were equal round and reactive to light. Eyelids were unremarkable. PULMONARY: Unlabored respirations. Good breath sounds bilaterally. No audible rales rhonc hi or wheezing was noted. CARDIOVASCULAR: Irregular heartbeat ABDOMEN: Soft and nontender with normal bowel sounds. SKIN: Skin is clear with no lesions or rashes and otherwise unremarkable. NEUROLOGIC: Patient is alert and oriented x3. Cranial nerves II through XII are grossly intact. Motor and sensory are also intact. Normal speech, volume and content. Symmetrical smile. MUSCULOSKELETAL: Normal extremities with adequate strength and full range of motion. LYMPHATICS: No significant lymphadenopathy is noted PSYCHIATRIC: Normal psychiatric evaluation. (Jens Hunter) Course Vital Signs 12/15/18 12/15/18 12/15/18 19:52 20:45 21:53 Temperature 97.6 F Pulse Rate 84 79 80 Respiratory 18 18 18 Rate Blood Pressure 121/61 125/52 109/67 O2 Sat by Pulse 98 99 99 Oximetry 12/15/18 23:08 Temperature Pulse Rate 84 Respiratory 16 Rate Blood Pressure 109/67 O2 Sat by Pulse 95 Oximetry Medical Decision Making <Jens Hunter - Last Filed: 12/15/18 20:46> - Lab Data Result diagrams: 12/15/18 20:40 12/15/18 20:40 <Hector Carey - Last Filed: 12/15/18 23:13> - Medical Decision Making EKG shows atrial fibrillation at 60 bpm QRS is 90 QT interval 410 QTC is 435. There is no ST segment elevation. Dr. Carey will be taking over the care of this patient at 9 PM (Jens Hunter) Patient was signed out to me by previous disposition Dr. Hunter. Briefly, patient is 88-year-old female presents with generalized weakness. She is a xoi-ednxbau-lhewujije diabetic. She does take oral hypoglycemic. According to previous physician patient was initially value by EMS and had a initial glucose of 35. She did have symptoms of dizziness. She did have stable vital signs upon arrival. She was given glucose by prehospital providers. [facility] was a follow-up with labs and imaging studies.Laboratory evaluation was obtained. CBC is unremarkable. Coag panel is negative. Patient does have severely light abnormality with potassium 2.5, calcium of 5.9. Medications were reviewed is likely secondary to hydrochlorothiazide. EKGs benign showing no interval abnormalities. Patient given IV potassium and IV calcium. Cardiac calcium is still below normal. Discussed patient case with Dr. Bridges who is willing to accept care for this patient. Patient was reevaluated at bedside. She is in stable medical condition. She is smiling and in good spirits. (Hector Carey) - Lab Data Lab Results 12/15/18 12/15/18 12/15/18 Range/Units 20:40 20:40 20:40 WBC 9.8 (3.8-10.6) k/uL RBC 3.13 L (3.80-5.40) m/uL Hgb 9.3 L D (11.4-16.0) gm/dL Hct 29.3 L (34.0-46.0) % MCV 93.5 (80.0-100.0) fL MCH 29.8 (25.0-35.0) pg MCHC 31.9 (31.0-37.0) g/dL RDW 13.7 (11.5-15.5) % Plt Count 179 (150-450) k/uL Neutrophils % 89 % Lymphocytes % 6 % Monocytes % 4 % Eosinophils % 1 % Basophils % 0 % Neutrophils # 8.8 H (1.3-7.7) k/uL Lymphocytes # 0.6 L (1.0-4.8) k/uL Monocytes # 0.4 (0-1.0) k/uL Eosinophils # 0.1 (0-0.7) k/uL Basophils # 0.0 (0-0.2) k/uL PT (9.0-12.0) sec INR (<1.2) APTT (22.0-30.0) sec Sodium 142 (137-145) mmol/L Potassium 2.5 L* (3.5-5.1) mmol/L Chloride 112 H (98-107) mmol/L Carbon Dioxide 26 (22-30) mmol/L Anion Gap 4 mmol/L BUN 17 (7-17) mg/dL Creatinine 0.39 L (0.52-1.04) mg/dL Est GFR (CKD-EPI)AfAm >90 (>60 ml/min/1.73 sqM) Est GFR (CKD-EPI)NonAf >90 (>60 ml/min/1.73 sqM) Glucose 85 (74-99) mg/dL POC Glucose (mg/dL) (75-99) mg/dL POC Glu Bottling Supervisor ID Plasma Lactic Acid Osorio 1.7 (0.7-2.0) mmol/L Calcium 5.9 L* (8.4-10.2) mg/dL Magnesium 1.6 (1.6-2.3) mg/dL Total Bilirubin 0.2 (0.2-1.3) mg/dL AST 22 (14-36) U/L ALT 25 (9-52) U/L Alkaline Phosphatase 34 L (38-126) U/L Troponin I (0.000-0.034) ng/mL Total Protein 4.1 L (6.3-8.2) g/dL Albumin 2.2 L (3.5-5.0) g/dL 12/15/18 12/15/18 12/15/18 Range/Units 20:40 20:40 22:00 WBC (3.8-10.6) k/uL RBC (3.80-5.40) m/uL Hgb (11.4-16.0) gm/dL Hct (34.0-46.0) % MCV (80.0-100.0) fL MCH (25.0-35.0) pg MCHC (31.0-37.0) g/dL RDW (11.5-15.5) % Plt Count (150-450) k/uL Neutrophils % % Lymphocytes % % Monocytes % % Eosinophils % % Basophils % % Neutrophils # (1.3-7.7) k/uL Lymphocytes # (1.0-4.8) k/uL Monocytes # (0-1.0) k/uL Eosinophils # (0-0.7) k/uL Basophils # (0-0.2) k/uL PT 10.9 (9.0-12.0) sec INR 1.0 (<1.2) APTT 28.2 (22.0-30.0) sec Sodium (137-145) mmol/L Potassium (3.5-5.1) mmol/L Chloride (98-107) mmol/L Carbon Dioxide (22-30) mmol/L Anion Gap mmol/L BUN (7-17) mg/dL Creatinine (0.52-1.04) mg/dL Est GFR (CKD-EPI)AfAm (>60 ml/min/1.73 sqM) Est GFR (CKD-EPI)NonAf (>60 ml/min/1.73 sqM) Glucose (74-99) mg/dL POC Glucose (mg/dL) 102 H (75-99) mg/dL POC Glu Bottling Supervisor ID Skyla Coronel Plasma Lactic Acid Osorio (0.7-2.0) mmol/L Calcium (8.4-10.2) mg/dL Magnesium (1.6-2.3) mg/dL Total Bilirubin (0.2-1.3) mg/dL AST (14-36) U/L ALT (9-52) U/L Alkaline Phosphatase (38-126) U/L Troponin I <0.012 (0.000-0.034) ng/mL Total Protein (6.3-8.2) g/dL Albumin (3.5-5.0) g/dL Disposition <Jens Hunter - Last Filed: 12/15/18 20:46> Decision Time: 23:13 <Hector Carey - Last Filed: 12/15/18 23:13> Clinical Impression: Electrolyte abnormality Disposition: ADMITTED IP TO THIS HOSP Condition: Fair Referrals: Kareem Issa MD [Primary Care Provider] - 1-2 days
[2018-12-15 20:48] LABS: Basophils % (A) 0 %; Eosinophils # (A) 0.1 k/uL (0-0.7); Eosinophils % (A) 1 %; HCT 29.3 % (34.0-46.0); Lymphocytes # (A) 0.6 k/uL (1.0-4.8); Lymphocytes % (A) 6 %; MCH 29.8 pg (25.0-35.0); MCHC 31.9 g/dL (31.0-37.0); MCV 93.5 fL (80.0-100.0); Mean Platelet Volume 8.3; Monocytes # (A) 0.4 k/uL (0-1.0); Monocytes % (A) 4 %; Neutrophils # (A) 8.8 k/uL (1.3-7.7); Neutrophils % (A) 89 %; Platelet Count 179 k/uL (150-450); RBC 3.13 m/uL (3.80-5.40); RDW 13.7 % (11.5-15.5); WBC 9.8 k/uL (3.8-10.6)
[2018-12-15 20:59] LABS: ALT 25 U/L (9-52); AST 22 U/L (14-36); African American GFR (CKD) >90 (>60 ml/min/1.73 sqM); Albumin 2.2 g/dL (3.5-5.0); Alkaline Phosphatase 34 U/L (38-126); Anion Gap 4 mmol/L; Blood Urea Nitrogen 17 mg/dL (7-17); Carbon Dioxide 26 mmol/L (22-30); Chloride 112 mmol/L (98-107); Glucose 85 mg/dL (74-99); Magnesium 1.6 mg/dL (1.6-2.3); Sodium 142 mmol/L (137-145); Total Bilirubin 0.2 mg/dL (0.2-1.3); Total Protein 4.1 g/dL (6.3-8.2)
[2018-12-15 21:02] LABS: Potassium 2.5 mmol/L (3.5-5.1)
[2018-12-15 21:03] LABS: Calcium 5.9 mg/dL (8.4-10.2)
--- NOTE | 2018-12-15 21:06 | XR ---
EXAMINATION TYPE: XR chest 2V DATE OF EXAM: 12/15/2018 COMPARISON: 11/30/2018 HISTORY: Weakness TECHNIQUE: Frontal and lateral views of the chest are obtained. FINDINGS: There is no heart failure nor confluent pneumonic infiltrate. There is mild coarsening of interstitial markings. There are chest leads. Thoracic aorta is atheromatous. There is spurring in th e thoracic spine. IMPRESSION: No active cardiopulmonary disease. Minimal fibrotic changes.
[2018-12-15 21:11] LABS: Partial Thromboplastin Time 28.2 sec (22.0-30.0); Prothrombin Time 10.9 sec (9.0-12.0)
[2018-12-15] MEDS ORDERED: CALCIUM GLUCONATE 1 GM in SODIUM CHLORIDE 0.9% 100 ML IVPB ONE (21:12)
[2018-12-15 21:20] LABS: HGB 9.3 gm/dL (11.4-16.0)
[2018-12-15] MEDS: POTASSIUM CHLORIDE 10 MEQ in WATER FOR INJECTION 1 100ML.BAG IVPB SCH ×2 (21:56→23:10)
[2018-12-15 22:04] LABS: Glucose,Whole Blood 102 mg/dL (75-99)
[2018-12-15] MEDS ORDERED: NALOXONE 0.4 MG/ML 1 ML VIAL IV PRN (23:13)
[2018-12-15 23:17] LABS: Appearance,Urine Clear (Clear); Bilirubin,Urine Negative (Negative); Blood,Urine Negative (Negative); Color,Urine Yellow; Glucose,Urine (UA) 1+ (Negative); Ketones,Urine Negative (Negative); Leukocyte Esterase,Urine Negative (Negative); Nitrite,Urine Negative (Negative); Protein,Urine Negative (Negative); Specific Gravity,Urine 1.018 (1.001-1.035); Urobilinogen,Urine <2.0 mg/dL (<2.0)
--- NOTE | 2018-12-16 00:30 | P.HPIM ---
History of Present Illness H&P Date: 12/16/18 Chief Complaint: Generalized weakness and shaky 88-year-old female with history of A. fib on Eliquis, obstructive sleep apnea, diabetes. Patient came into the ED today due to not feeling well, she has been feeling tired and progressively sick over the past 3 days. she reports that she felt bloated with some discomfort in her belly for which she took Mylanta after which she had one episodes of diarrhea. Then later on today she continued to feel weak and tired and shaky with some episodes of blurry vision. Denies any chest pain or trouble breathing she spent the day resting and sleeping in bed. However she became very sick toward the end of the day for which she called EMS who found her to be hypoglycemic with blood sugar of 35 she takes oral hypoglycemic agents. Patient was given some orange juice and food and started feeling better In the emergency department she was found to have electrolyte imbalance with hypokalemia hypocalcemia, labs also showed new onset anemia of 9.3. Patient is not aware of any GI bleeding she does not check her bowel movements. She is on Eliquis for A. fib. Otherwise she denies any fevers or chills denies any coughing or chest pain. Denies any nausea or vomiting. Patient had an MRI of the lower back yesterday showed degenerative spine disease, also found an incidental finding of right kidney cyst possibly hemorrhagic Patient was recently hospitalized for cellulitis treated with Keflex. She was also found at that time to have diverticulosis on a CAT scan of the abdomen along with chronic hepatic cyst. EGD was performed at that time showed gastritis. Patient does take a lot of pain medications for her chronic low back pain includes NSAIDs. Patient normally ambulates using a walker she had a recent fall outside in the bushes where she scraped her leg and of left cellulitis for which she was treated for last admission. No further falls after that episode she continues to use the walker to ambulate. She uses a CPAP machine for obstructive sleep apnea. Review of Systems Pertinent positives as noted in HPI. All other systems were reviewed and are negative Past Medical History Past Medical History: Atrial Fibrillation, Chest Pain / Angina, Heart Failure, Diabetes Mellitus, GERD/Reflux, Hyperlipidemia, Hypertension, Osteoarthritis (OA), Respiratory Disorder, Sleep Apnea/CPAP/BIPAP, Thyroid Disorder Additional Past Medical History / Comment(s): DDD WITH BACK PAIN, OCCASIONAL SWELLING IN FEET, USES C-PAP MACHINE. History of Any Multi-Drug Resistant Organisms: None Reported Past Surgical History: Cholecystectomy, Hysterectomy, Joint Replacement Additional Past Surgical History / Comment(s): EGD for gastric reflux. Excision of lipomas. bilateral cataracts, total knee., Pain clinic procedures. Past Anesthesia/Blood Transfusion Reactions: No Reported Reaction Past Psychological History: Anxiety, Depression Smoking Status: Former smoker Past Alcohol Use History: None Reported Past Drug Use History: None Reported - Past Family History Brother(s) Family Medical History: Congestive Heart Failure (CHF), COPD, Coronary Artery Disease (CAD), Diabetes Mellitus Daughter(s) Additional Family Medical History / Comment(s): One from MVA Son(s) Family Medical History: Diabetes Mellitus, Hyperlipidemia, Hypertension Sister(s) Family Medical History: Cancer Mother Family Medical History: Dementia Father Family Medical History: COPD Additional Family Medical History / Comment(s): EMPHYSEMA. Medications and Allergies Home Medications Medication Instructions Recorded Confirmed Type Sertraline [Zoloft] 25 mg PO DAILY 10/18/15 12/15/18 History Apixaban [Eliquis] 2.5 mg PO BID 02/14/16 12/15/18 History Losartan/Hydrochlorothiazide 1 tab PO DAILY 09/02/16 12/15/18 History [Hyzaar 100-25 Tablet] Diltiazem Cd [Cardizem CD] 180 mg PO DAILY #30 cap.er.24h 07/24/18 12/15/18 Rx Pantoprazole Sodium [Protonix] 40 mg PO BID 09/14/18 12/15/18 History metFORMIN HCL 850 mg PO HS 11/03/18 12/15/18 History Cephalexin [Keflex] 500 mg PO Q8HR 7 Days #21 cap 12/04/18 12/15/18 Rx Dicyclomine [Bentyl] 10 mg PO TID 30 Days #90 cap 12/04/18 12/15/18 Rx HYDROcodone/APAP 7.5-325MG [[place] 1 tab PO BID 12/15/18 12/15/18 History 7.5-325] glipiZIDE [Glucotrol] 5 mg PO BID@1300,1800 12/15/18 12/15/18 History Allergies Allergy/AdvReac Type Severity Reaction Status Date / Time aspirin AdvReac Dyspnea,Nausea/Vomiting,Dizzy,Tingling,Warm Verified 12/15/18 20:51 sensation Physical Exam Vitals: Vital Signs Temp Pulse Resp BP Pulse Ox 12/15/18 23:08 84 16 109/67 95 12/15/18 21:53 80 18 109/67 99 12/15/18 20:45 79 18 125/52 99 12/15/18 19:52 97.6 F 84 18 121/61 98 Intake and Output 12/15/18 12/15/18 12/16/18 14:59 22:59 06:59 Other: Weight 86.183 kg Constitutional: No acute distress, conversant, pleasant Eyes: Anicteric sclerae, moist conjunctiva, no lid-lag Pupils equal round reactive to light ENMT: NC/AT Oropharynx clear, no erythema, exudates Neck: Supple, FROM, no masses, or JVD No carotid bruits No thyromegaly Lungs: Clear to auscultation Clear to percussion Normal respiratory effort, no accessory muscle use Cardiovascular: Heart irregular in rate and rhythm, No murmurs, gallops, or rubs No peripheral edema Abdominal: Distended over the epigastric region with some discomfort to deep palpation, no guarding, rebound or rigidity Abdomen moving with respiration Normoactive bowel sounds No hepatomegaly, No splenomegaly No palpable mass No abdominal wall hernia noted Skin: Patient is cold to the touch otherwise Normal tone, texture, turgor No induration No subcutaneous nodules No rash, lesions There is abrasion over the left lower extremity over the distal end of the briscoe no surrounding induration, minimal erythema surrounding this. Extremities: No digital cyanosis No clubbing Pedal pulses intact and symmetrical Radial pulses intact and symmetrical No calf tenderness Psychiatric: Alert and oriented to person, place and time Appropriate affect fair judgment Neuro Muscles Strength 4/5 in all 4 extremities Sensation to light touch grossly present throughout Cranial nerves II-XII grossly intact No focal sensory deficits Lymphatics: no palpable cervical or supraclavicular , or inguinal lymph nodes Results CBC & Chem 7: 12/15/18 20:40 12/15/18 20:40 Labs: Abnormal Lab Results - Last 24 Hours (Table) 12/15/18 12/15/18 12/15/18 Range/Units 20:40 20:40 22:00 RBC 3.13 L (3.80-5.40) m/uL Hgb 9.3 L D (11.4-16.0) gm/dL Hct 29.3 L (34.0-46.0) % Neutrophils # 8.8 H (1.3-7.7) k/uL Lymphocytes # 0.6 L (1.0-4.8) k/uL Potassium 2.5 L* (3.5-5.1) mmol/L Chloride 112 H (98-107) mmol/L Creatinine 0.39 L (0.52-1.04) mg/dL POC Glucose (mg/dL) 102 H (75-99) mg/dL Calcium 5.9 L* (8.4-10.2) mg/dL Alkaline Phosphatase 34 L (38-126) U/L Total Protein 4.1 L (6.3-8.2) g/dL Albumin 2.2 L (3.5-5.0) g/dL Urine Glucose (UA) (Negative) 12/15/18 Range/Units 23:00 RBC (3.80-5.40) m/uL Hgb (11.4-16.0) gm/dL Hct (34.0-46.0) % Neutrophils # (1.3-7.7) k/uL Lymphocytes # (1.0-4.8) k/uL Potassium (3.5-5.1) mmol/L Chloride (98-107) mmol/L Creatinine (0.52-1.04) mg/dL POC Glucose (mg/dL) (75-99) mg/dL Calcium (8.4-10.2) mg/dL Alkaline Phosphatase (38-126) U/L Total Protein (6.3-8.2) g/dL Albumin (3.5-5.0) g/dL Urine Glucose (UA) 1+ H (Negative) Assessment and Plan Assessment: 88-year-old female with history of hypothyroid , diabetes mellitus, TENZIN. Admitted as an inpatient with anticipated length of stay more than 48 hours Patient was found hypoglycemic by EMS, she was also found to be hypokalemic and hypocalcemic in the ED admitted for close monitoring of electrolytes and replacement.patient was also found to have new onset acute anemia she's currently on Eliquis for A. fib GI bleeding needs to be ruled out Plan: Symptomatic hypoglycemia Electrolyte imbalance Hypokalemia and hypocalcemia Acute onset anemia, rule out GI bleeding Plan Monitor hemoglobin, history of diverticulosis, patient on blood thinner however she is not checking her bowel movements and unaware of any GI bleeding Replace electrolytes and follow up closely Hold oral hypoglycemic agents, continue with insulin sliding scale Hold hydrochlorothiazide (due to hypokalemia) Abdominal discomfort with bloating Check abdominal x-ray to rule out megacolon Incidental finding of possible hemorrhagic cyst over the right kidney, urology consult for evaluation This is based on MRI findings on December 14 Patient known to have liver cyst this chronic in nature Degenerative disc disease Pain control with [place] Outpatient follow-up Chronic conditions obstructive sleep apnea A. fib on Eliquis Hypertension Diabetes mellitus DVT prophylaxis patient on Eliquis for A. fib Fall precautions, patient uses a walker for ambulation Preformed a thorough record review from recent hospitalization recent hospitalization for cellulitis treated with Keflex, she was also found to have diverticulosis on CAT scan of the abdomen, EGD showed gastritis. Surrogate decision-maker: Patient's son CODE STATUS: Full code Discussed with: Patient, ER, RN Anticipated discharge: 48-[address]: Home A total of 60 60 minutes minutes were spent on the care of this complex patient more than 50% of the time was spent in counseling and care coordination.
[2018-12-16] MEDS: HYDROcodone/APAP 7.5-325MG 1 EACH TAB PO PRN ×3 (00:35→19:39)
[2018-12-16] MEDS: POTASSIUM CHLORIDE 10 MEQ in WATER FOR INJECTION 1 100ML.BAG IVPB SCH ×4 (00:56→03:19)
[2018-12-16] MEDS: SODIUM CHLORIDE 0.9% 1,000 ML IV SCH ×2 (00:57→20:56)
[2018-12-16 02:24] LABS: Glucose,Whole Blood 56 mg/dL (75-99)
[2018-12-16] MEDS: DEXTROSE 50% SYRINGE 50 ML IVP STA ×2 (02:40→04:20)
[2018-12-16 02:46] LABS: Glucose,Whole Blood 54 mg/dL (75-99)
[2018-12-16 03:10] LABS: Glucose,Whole Blood 112 mg/dL (75-99)
[2018-12-16 04:13] LABS: Glucose,Whole Blood 56 mg/dL (75-99)
[2018-12-16 04:47] LABS: Glucose,Whole Blood 144 mg/dL (75-99)
[2018-12-16 05:32] LABS: Glucose,Whole Blood 90 mg/dL (75-99)
[2018-12-16] MEDS: INSULIN ASPART (NovoLOG) 100 UNIT/ML VIAL SQ SCH ×2 (06:03→12:08)
[2018-12-16 06:33] LABS: Glucose,Whole Blood 65 mg/dL (75-99)
[2018-12-16 06:56] LABS: Basophils % (A) 0 %; Eosinophils # (A) 0.1 k/uL (0-0.7); Eosinophils % (A) 1 %; HCT 33.3 % (34.0-46.0); HGB 10.7 gm/dL (11.4-16.0); Lymphocytes # (A) 1.5 k/uL (1.0-4.8); Lymphocytes % (A) 15 %; MCH 30.4 pg (25.0-35.0); MCHC 32.2 g/dL (31.0-37.0); MCV 94.5 fL (80.0-100.0); Mean Platelet Volume 7.6; Monocytes # (A) 0.5 k/uL (0-1.0); Monocytes % (A) 5 %; Neutrophils # (A) 8.3 k/uL (1.3-7.7); Neutrophils % (A) 79 %; Platelet Count 211 k/uL (150-450); RBC 3.52 m/uL (3.80-5.40); RDW 14.7 % (11.5-15.5); WBC 10.5 k/uL (3.8-10.6)
--- NOTE | 2018-12-16 07:00 | XR ---
EXAMINATION TYPE: XR abdomen 1V , 2 VIEWS DATE OF EXAM ORDERED: 12/16/2018 HISTORY: bloated, r/o megacolon. COMPARISON: Previous study dated 11/30/2018. FINDINGS: The heart is enlarged. I suspect small effusions. The lung bases are otherwise clear. Within the abdomen, there has been a previous cholecystectomy. There are degenerative changes in the spine. The abdominal gas pattern is normal. There is no evidence of obstruction or free air. There ar e phleboliths within the pelvis. IMPRESSION: NONACUTE ABDOMEN.
[2018-12-16 07:12] LABS: ALT 29 U/L (9-52); AST 25 U/L (14-36); African American GFR (CKD) >90 (>60 ml/min/1.73 sqM); Albumin 3.1 g/dL (3.5-5.0); Alkaline Phosphatase 49 U/L (38-126); Anion Gap 3 mmol/L; Blood Urea Nitrogen 16 mg/dL (7-17); Calcium 8.4 mg/dL (8.4-10.2); Carbon Dioxide 35 mmol/L (22-30); Chloride 102 mmol/L (98-107); Glucose 54 mg/dL (74-99); Phosphorus 2.8 mg/dL (2.5-4.5); Potassium 4.4 mmol/L (3.5-5.1); Sodium 140 mmol/L (137-145); Total Bilirubin 0.4 mg/dL (0.2-1.3); Total Protein 5.4 g/dL (6.3-8.2)
[2018-12-16 07:19] LABS: Ionized Calcium 4.8 mg/dL (4.5-5.3)
[2018-12-16] MEDS ORDERED: PANTOPRAZOLE 40 MG TABLET PO SCH (07:30)
[2018-12-16 08:00] LABS: Glucose,Whole Blood 64 mg/dL (75-99)
[2018-12-16] MEDS: LOSARTAN 50 MG TAB PO SCH (08:09)
[2018-12-16] MEDS: SERTRALINE 25 MG TAB PO SCH (08:09)
[2018-12-16] MEDS: DILTIAZEM CD 180 MG CAP.ER.24H PO SCH (08:09)
[2018-12-16] MEDS: PANTOPRAZOLE 40 MG TABLET PO SCH ×2 (08:10→19:40)
[2018-12-16] MEDS: APIXABAN 2.5 MG TABLET PO SCH ×2 (08:10→19:40)
[2018-12-16 08:15] LABS: Glucose,Whole Blood 78 mg/dL (75-99)
--- NOTE | 2018-12-16 10:05 | P.GSCN ---
History of Present Illness Consult date: 12/16/18 Reason for Consult: Right renal cysts Requesting physician: Jose A Bustos History of present illness: The patient is an 88-year-old woman admitted with weakness, shaking, and dyspnea. She was seen in the office in 2013. At that time, she reported right lower back pain. A CT scan showed a 2 mm right lower pole non-obstructing renal calculus. I discouraged to treatment, as I did not believe that that small stone was the cause of her right lower back pain. She is now being followed by Dr. Frias for the back pain. A recent MRI has shown right lower pole renal cysts which contain fluid-fluid levels, consistent with hemorrhagic cysts. The largest of these measures 8 mm in size. I am consulted for this reason. Review of Systems - Constitutional Reports weakness - EENT Eyes: bilateral blurred vision - Respiratory Reports dyspnea - Genitourinary Genitourinary: Denies hematuria Past Medical History Past Medical History: Atrial Fibrillation, Chest Pain / Angina, Heart Failure, Diabetes Mellitus, GERD/Reflux, Hyperlipidemia, Hypertension, Osteoarthritis (OA), Respiratory Disorder, Sleep Apnea/CPAP/BIPAP, Thyroid Disorder Additional Past Medical History / Comment(s): DDD WITH BACK PAIN, OCCASIONAL SWELLING IN FEET, USES C-PAP MACHINE. History of Any Multi-Drug Resistant Organisms: None Reported Past Surgical History: Cholecystectomy, Hysterectomy, Joint Replacement Additional Past Surgical History / Comment(s): EGD for gastric reflux. Excision of lipomas. bilateral cataracts, total knee., Pain clinic procedures. Past Anesthesia/Blood Transfusion Reactions: No Reported Reaction Past Psychological History: Anxiety, Depression Smoking Status: Former smoker Past Alcohol Use History: None Reported Past Drug Use History: None Reported - Past Family History Brother(s) Family Medical History: Congestive Heart Failure (CHF), COPD, Coronary Artery Disease (CAD), Diabetes Mellitus Daughter(s) Additional Family Medical History / Comment(s): One from MVA Son(s) Family Medical History: Diabetes Mellitus, Hyperlipidemia, Hypertension Sister(s) Family Medical History: Cancer Mother Family Medical History: Dementia Father Family Medical History: COPD Additional Family Medical History / Comment(s): EMPHYSEMA. Medications and Allergies Home Medications Medication Instructions Recorded Confirmed Type Sertraline [Zoloft] 25 mg PO DAILY 10/18/15 12/15/18 History Apixaban [Eliquis] 2.5 mg PO BID 02/14/16 12/15/18 History Losartan/Hydrochlorothiazide 1 tab PO DAILY 09/02/16 12/15/18 History [Hyzaar 100-25 Tablet] Diltiazem Cd [Cardizem CD] 180 mg PO DAILY #30 cap.er.24h 07/24/18 12/15/18 Rx Pantoprazole Sodium [Protonix] 40 mg PO BID 09/14/18 12/15/18 History metFORMIN HCL 850 mg PO HS 11/03/18 12/15/18 History Cephalexin [Keflex] 500 mg PO Q8HR 7 Days #21 cap 12/04/18 12/15/18 Rx Dicyclomine [Bentyl] 10 mg PO TID 30 Days #90 cap 12/04/18 12/15/18 Rx HYDROcodone/APAP 7.5-325MG [[place] 1 tab PO BID 12/15/18 12/15/18 History 7.5-325] glipiZIDE [Glucotrol] 5 mg PO BID@1300,1800 12/15/18 12/15/18 History Allergies Allergy/AdvReac Type Severity Reaction Status Date / Time aspirin AdvReac Dyspnea,Nausea/Vomiting,Dizzy,Tingling,Warm Verified 12/15/18 20:51 sensation Surgical - Exam Vital Signs Temp Pulse Resp BP Pulse Ox 97.6 F 84 18 121/61 98 12/15/18 19:52 12/15/18 19:52 12/15/18 19:52 12/15/18 19:52 12/15/18 19:52 - General well developed, well nourished, no distress - Neck no masses, trachea midline - Respiratory normal respiratory effort - Abdomen Abdomen: soft, non tender, no guarding, no rigid, no rebound - Psychiatric oriented to time, oriented to person, oriented to place, speech is normal, memory intact Results - Labs 12/16/18 06:15 12/16/18 06:15 Abnormal Lab Results - Last 24 Hours (Table) 12/15/18 12/15/18 12/15/18 Range/Units 20:40 20:40 22:00 RBC 3.13 L (3.80-5.40) m/uL Hgb 9.3 L D (11.4-16.0) gm/dL Hct 29.3 L (34.0-46.0) % Neutrophils # 8.8 H (1.3-7.7) k/uL Lymphocytes # 0.6 L (1.0-4.8) k/uL Potassium 2.5 L* (3.5-5.1) mmol/L Chloride 112 H (98-107) mmol/L Carbon Dioxide (22-30) mmol/L Creatinine 0.39 L (0.52-1.04) mg/dL Glucose (74-99) mg/dL POC Glucose (mg/dL) 102 H (75-99) mg/dL Calcium 5.9 L* (8.4-10.2) mg/dL Alkaline Phosphatase 34 L (38-126) U/L Total Protein 4.1 L (6.3-8.2) g/dL Albumin 2.2 L (3.5-5.0) g/dL Urine Glucose (UA) (Negative) 12/15/18 12/16/18 12/16/18 Range/Units 23:00 02:08 02:33 RBC (3.80-5.40) m/uL Hgb (11.4-16.0) gm/dL Hct (34.0-46.0) % Neutrophils # (1.3-7.7) k/uL Lymphocytes # (1.0-4.8) k/uL Potassium (3.5-5.1) mmol/L Chloride (98-107) mmol/L Carbon Dioxide (22-30) mmol/L Creatinine (0.52-1.04) mg/dL Glucose (74-99) mg/dL POC Glucose (mg/dL) 56 L 54 L (75-99) mg/dL Calcium (8.4-10.2) mg/dL Alkaline Phosphatase (38-126) U/L Total Protein (6.3-8.2) g/dL Albumin (3.5-5.0) g/dL Urine Glucose (UA) 1+ H (Negative) 12/16/18 12/16/18 12/16/18 Range/Units 02:58 04:06 04:35 RBC (3.80-5.40) m/uL Hgb (11.4-16.0) gm/dL Hct (34.0-46.0) % Neutrophils # (1.3-7.7) k/uL Lymphocytes # (1.0-4.8) k/uL Potassium (3.5-5.1) mmol/L Chloride (98-107) mmol/L Carbon Dioxide (22-30) mmol/L Creatinine (0.52-1.04) mg/dL Glucose (74-99) mg/dL POC Glucose (mg/dL) 112 H 56 L 144 H (75-99) mg/dL Calcium (8.4-10.2) mg/dL Alkaline Phosphatase (38-126) U/L Total Protein (6.3-8.2) g/dL Albumin (3.5-5.0) g/dL Urine Glucose (UA) (Negative) 12/16/18 12/16/18 12/16/18 Range/Units 06:15 06:15 06:31 RBC 3.52 L (3.80-5.40) m/uL Hgb 10.7 L (11.4-16.0) gm/dL Hct 33.3 L (34.0-46.0) % Neutrophils # 8.3 H (1.3-7.7) k/uL Lymphocytes # (1.0-4.8) k/uL Potassium (3.5-5.1) mmol/L Chloride (98-107) mmol/L Carbon Dioxide 35 H (22-30) mmol/L Creatinine (0.52-1.04) mg/dL Glucose 54 L (74-99) mg/dL POC Glucose (mg/dL) 65 L (75-99) mg/dL Calcium (8.4-10.2) mg/dL Alkaline Phosphatase (38-126) U/L Total Protein 5.4 L (6.3-8.2) g/dL Albumin 3.1 L (3.5-5.0) g/dL Urine Glucose (UA) (Negative) 12/16/18 Range/Units 07:41 RBC (3.80-5.40) m/uL Hgb (11.4-16.0) gm/dL Hct (34.0-46.0) % Neutrophils # (1.3-7.7) k/uL Lymphocytes # (1.0-4.8) k/uL Potassium (3.5-5.1) mmol/L Chloride (98-107) mmol/L Carbon Dioxide (22-30) mmol/L Creatinine (0.52-1.04) mg/dL Glucose (74-99) mg/dL POC Glucose (mg/dL) 64 L (75-99) mg/dL Calcium (8.4-10.2) mg/dL Alkaline Phosphatase (38-126) U/L Total Protein (6.3-8.2) g/dL Albumin (3.5-5.0) g/dL Urine Glucose (UA) (Negative) Diabetes panel 12/15/18 12/16/18 Range/Units 20:40 06:15 Sodium 142 140 (137-145) mmol/L Potassium 2.5 L* 4.4 (3.5-5.1) mmol/L Chloride 112 H 102 (98-107) mmol/L Carbon Dioxide 26 35 H (22-30) mmol/L BUN 17 16 (7-17) mg/dL Creatinine 0.39 L 0.62 (0.52-1.04) mg/dL Glucose 85 54 L (74-99) mg/dL Calcium 5.9 L* 8.4 (8.4-10.2) mg/dL AST 22 25 (14-36) U/L ALT 25 29 (9-52) U/L Alkaline Phosphatase 34 L 49 (38-126) U/L Total Protein 4.1 L 5.4 L (6.3-8.2) g/dL Albumin 2.2 L 3.1 L (3.5-5.0) g/dL Calcium panel 12/15/18 12/16/18 Range/Units 20:40 06:15 Calcium 5.9 L* 8.4 (8.4-10.2) mg/dL Ionized Calcium Vy 4.8 (4.5-5.3) mg/dL Phosphorus 2.8 (2.5-4.5) mg/dL Albumin 2.2 L 3.1 L (3.5-5.0) g/dL Pituitary panel 12/15/18 12/16/18 Range/Units 20:40 06:15 Sodium 142 140 (137-145) mmol/L Potassium 2.5 L* 4.4 (3.5-5.1) mmol/L Chloride 112 H 102 (98-107) mmol/L Carbon Dioxide 26 35 H (22-30) mmol/L BUN 17 16 (7-17) mg/dL Creatinine 0.39 L 0.62 (0.52-1.04) mg/dL Glucose 85 54 L (74-99) mg/dL Calcium 5.9 L* 8.4 (8.4-10.2) mg/dL Adrenal panel 12/15/18 12/16/18 Range/Units 20:40 06:15 Sodium 142 140 (137-145) mmol/L Potassium 2.5 L* 4.4 (3.5-5.1) mmol/L Chloride 112 H 102 (98-107) mmol/L Carbon Dioxide 26 35 H (22-30) mmol/L BUN 17 16 (7-17) mg/dL Creatinine 0.39 L 0.62 (0.52-1.04) mg/dL Glucose 85 54 L (74-99) mg/dL Calcium 5.9 L* 8.4 (8.4-10.2) mg/dL Total Bilirubin 0.2 0.4 (0.2-1.3) mg/dL AST 22 25 (14-36) U/L ALT 25 29 (9-52) U/L Alkaline Phosphatase 34 L 49 (38-126) U/L Total Protein 4.1 L 5.4 L (6.3-8.2) g/dL Albumin 2.2 L 3.1 L (3.5-5.0) g/dL - Imaging CT scan - abdomen: report reviewed, image reviewed Assessment and Plan (1) Renal cyst Current Visit: Yes Status: Acute Code(s): N28.1 - CYST OF KIDNEY, ACQUIRED SNOMED Code(s): 563483874 Plan: I reviewed both the recent CT scan and MRI. Multiple small bilateral renal cysts are noted. 2 right lower pole renal cysts show fluidfluid levels consistent with hemorrhagic cysts. 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 I do not believe that the cysts are contributing to her current condition in any way, nor do I feel that any further evaluation is warranted. Please notify me if I can be of any further assistance. Time with Patient: Greater than 30
[2018-12-16 10:36] LABS: Glucose,Whole Blood 80 mg/dL (75-99)
[2018-12-16 11:53] LABS: Parathyroid Hormone Intact 69.8 pg/mL (14.0-72.0)
[2018-12-16 12:14] LABS: Vitamin D 25 Hydroxy 14.7 ng/mL (30.0-100.0)
[2018-12-16 12:21] LABS: Glucose,Whole Blood 39 mg/dL (75-99)
[2018-12-16 12:29] LABS: Glucose,Whole Blood 53 mg/dL (75-99)
[2018-12-16 12:50] LABS: Glucose,Whole Blood 67 mg/dL (75-99)
[2018-12-16 13:24] LABS: Glucose,Whole Blood 75 mg/dL (75-99)
[2018-12-16 14:36] LABS: Glucose,Whole Blood 75 mg/dL (75-99)
[2018-12-16 15:54] LABS: Glucose,Whole Blood 66 mg/dL (75-99)
[2018-12-16 16:13] LABS: Glucose,Whole Blood 67 mg/dL (75-99)
[2018-12-16 16:50] LABS: Glucose,Whole Blood 62 mg/dL (75-99)
--- NOTE | 2018-12-16 16:56 | P.PN ---
Subjective Progress Note Date: 12/16/18 Principal diagnosis: Hypoglycemia Patient was seen and examined. No acute events overnight. Patient states that she is very anxious and worried about her blood sugars, unable to sleep because of that. Patient reports taking glipizide and metformin at home. States that she ate to lunches this afternoon, blood glucose went from 39-75. She denies any chest pain, shortness of breath or palpitations. Objective - Vital Signs Vital signs: Vital Signs Temp 97.8 F 12/16/18 12:16 Pulse 99 12/16/18 12:16 Resp 16 12/16/18 12:16 BP 138/67 12/16/18 12:16 Pulse Ox 99 12/16/18 12:16 Intake & Output 12/15/18 12/16/18 12/16/18 18:59 06:59 18:59 Weight 88.6 kg Other: Voiding Method Toilet Toilet Diaper Diaper # Voids 1 1 - Exam General: [non toxic], [no distress], [appears at stated age] Derm: [warm], [dry] Head: [atraumatic], [normocephalic], [symmetric] Eyes: [EOMI], [no lid lag], [anicteric sclera] Mouth: [no lip lesion], [mucus membranes moist] Cardiovascular: [S1S2 reg], [no murmur], [positive posterior tibial pulse bilateral], Lungs: [CTA bilateral], [no rhonchi, no rales] , [no accessory muscle use] Abdominal: [soft], [ nontender to palpation], [no guarding], [no appreciable organomegaly] Ext: [no gross muscle atrophy], [1+ lower extremity edema], [no contractures] Neuro: [no focal neuro deficits] Psych: [Alert], [oriented], [appropriate affect] - Labs CBC & Chem 7: 12/16/18 06:15 12/16/18 06:15 Labs: Abnormal Lab Results - Last 24 Hours (Table) 12/15/18 12/15/18 12/15/18 Range/Units 20:40 20:40 22:00 RBC 3.13 L (3.80-5.40) m/uL Hgb 9.3 L D (11.4-16.0) gm/dL Hct 29.3 L (34.0-46.0) % Neutrophils # 8.8 H (1.3-7.7) k/uL Lymphocytes # 0.6 L (1.0-4.8) k/uL Potassium 2.5 L* (3.5-5.1) mmol/L Chloride 112 H (98-107) mmol/L Carbon Dioxide (22-30) mmol/L Creatinine 0.39 L (0.52-1.04) mg/dL Glucose (74-99) mg/dL POC Glucose (mg/dL) 102 H (75-99) mg/dL Calcium 5.9 L* (8.4-10.2) mg/dL Alkaline Phosphatase 34 L (38-126) U/L Total Protein 4.1 L (6.3-8.2) g/dL Albumin 2.2 L (3.5-5.0) g/dL Vitamin D 25-Hydroxy (30.0-100.0) ng/mL Urine Glucose (UA) (Negative) 12/15/18 12/16/18 12/16/18 Range/Units 23:00 02:08 02:33 RBC (3.80-5.40) m/uL Hgb (11.4-16.0) gm/dL Hct (34.0-46.0) % Neutrophils # (1.3-7.7) k/uL Lymphocytes # (1.0-4.8) k/uL Potassium (3.5-5.1) mmol/L Chloride (98-107) mmol/L Carbon Dioxide (22-30) mmol/L Creatinine (0.52-1.04) mg/dL Glucose (74-99) mg/dL POC Glucose (mg/dL) 56 L 54 L (75-99) mg/dL Calcium (8.4-10.2) mg/dL Alkaline Phosphatase (38-126) U/L Total Protein (6.3-8.2) g/dL Albumin (3.5-5.0) g/dL Vitamin D 25-Hydroxy (30.0-100.0) ng/mL Urine Glucose (UA) 1+ H (Negative) 12/16/18 12/16/18 12/16/18 Range/Units 02:58 04:06 04:35 RBC (3.80-5.40) m/uL Hgb (11.4-16.0) gm/dL Hct (34.0-46.0) % Neutrophils # (1.3-7.7) k/uL Lymphocytes # (1.0-4.8) k/uL Potassium (3.5-5.1) mmol/L Chloride (98-107) mmol/L Carbon Dioxide (22-30) mmol/L Creatinine (0.52-1.04) mg/dL Glucose (74-99) mg/dL POC Glucose (mg/dL) 112 H 56 L 144 H (75-99) mg/dL Calcium (8.4-10.2) mg/dL Alkaline Phosphatase (38-126) U/L Total Protein (6.3-8.2) g/dL Albumin (3.5-5.0) g/dL Vitamin D 25-Hydroxy (30.0-100.0) ng/mL Urine Glucose (UA) (Negative) 12/16/18 12/16/18 12/16/18 Range/Units 06:15 06:15 06:15 RBC 3.52 L (3.80-5.40) m/uL Hgb 10.7 L (11.4-16.0) gm/dL Hct 33.3 L (34.0-46.0) % Neutrophils # 8.3 H (1.3-7.7) k/uL Lymphocytes # (1.0-4.8) k/uL Potassium (3.5-5.1) mmol/L Chloride (98-107) mmol/L Carbon Dioxide 35 H (22-30) mmol/L Creatinine (0.52-1.04) mg/dL Glucose 54 L (74-99) mg/dL POC Glucose (mg/dL) (75-99) mg/dL Calcium (8.4-10.2) mg/dL Alkaline Phosphatase (38-126) U/L Total Protein 5.4 L (6.3-8.2) g/dL Albumin 3.1 L (3.5-5.0) g/dL Vitamin D 25-Hydroxy 14.7 L (30.0-100.0) ng/mL Urine Glucose (UA) (Negative) 12/16/18 12/16/18 12/16/18 Range/Units 06:31 07:41 12:00 RBC (3.80-5.40) m/uL Hgb (11.4-16.0) gm/dL Hct (34.0-46.0) % Neutrophils # (1.3-7.7) k/uL Lymphocytes # (1.0-4.8) k/uL Potassium (3.5-5.1) mmol/L Chloride (98-107) mmol/L Carbon Dioxide (22-30) mmol/L Creatinine (0.52-1.04) mg/dL Glucose (74-99) mg/dL POC Glucose (mg/dL) 65 L 64 L 39 L (75-99) mg/dL Calcium (8.4-10.2) mg/dL Alkaline Phosphatase (38-126) U/L Total Protein (6.3-8.2) g/dL Albumin (3.5-5.0) g/dL Vitamin D 25-Hydroxy (30.0-100.0) ng/mL Urine Glucose (UA) (Negative) 12/16/18 12/16/18 12/16/18 Range/Units 12:22 12:47 15:50 RBC (3.80-5.40) m/uL Hgb (11.4-16.0) gm/dL Hct (34.0-46.0) % Neutrophils # (1.3-7.7) k/uL Lymphocytes # (1.0-4.8) k/uL Potassium (3.5-5.1) mmol/L Chloride (98-107) mmol/L Carbon Dioxide (22-30) mmol/L Creatinine (0.52-1.04) mg/dL Glucose (74-99) mg/dL POC Glucose (mg/dL) 53 L 67 L 66 L (75-99) mg/dL Calcium (8.4-10.2) mg/dL Alkaline Phosphatase (38-126) U/L Total Protein (6.3-8.2) g/dL Albumin (3.5-5.0) g/dL Vitamin D 25-Hydroxy (30.0-100.0) ng/mL Urine Glucose (UA) (Negative) Assessment and Plan Assessment: Assessment and Plan Symptomatic hypoglycemia Hypokalemia and hypocalcemia Anemia Atrial fibrillation Blood glucose 67. Hypoglycemic despite eating adequate amounts of food. Patient is on glipizide and metformin at home, likely cause. Plans: DC all oral hypoglycemics. Accu-Cheks every 2 hours. Start D5 at 50 mL per hour. Fall precautions. Follow PT and OT recommendations. Potassium 2.5. Calcium 5.9. PTH within normal limits. Vitamin D slightly decrease of 14.7. Unknown cause. Replaced via protocol. Plans: Replace via protocol. Within normal limits on repeat blood draw this morning. Daily CMP. Hemoglobin from 12.2 on December 04 to 9.3 on this admission. Patient denies any signs of bleeding. Plans: Daily CBC. Follow GI consultation. Protonix 40 mg by mouth twice a day. Stable. Continue Eliquis for anticoagulation. Continue Cardizem for rate control.
[2018-12-16] MEDS: DEXTROSE 5%-0.9% NACL 1,000 ML IV SCH (17:00)
[2018-12-16 17:35] LABS: Glucose,Whole Blood 73 mg/dL (75-99)
[2018-12-16 19:36] LABS: Glucose,Whole Blood 80 mg/dL (75-99)
--- NOTE | 2018-12-16 20:33 | P.CONS ---
History of Present Illness - Reason for Consult Consult date: 12/16/18 Abdominal pain, anemia Requesting physician: Rosemary Noble - Chief Complaint Tired, sick feeling, abdominal pain - History of Present Illness 88-year-old female with multiple medical comorbidities including hypothyroidism, atrial fibrillation on Eliquis, was a and diabetes mellitus who presented to the hospital with a constellation of symptoms. The patient reported being tired, and progressively sick over the 3 days prior to presentation. She reports abdominal pain in the epigastric region described as intense. She was previously discharge with Protonix and Bentyl therapy and states she took Mylanta with no improvement of her symptoms. The pain is constant and worsened with food. She reports episodes of having the symptoms feel worse if she exerts herself as well. She previously complained of similar symptoms on recent hospitalization and underwent EGD on 12/04/2018 which was significant for mild gastritis with duodenal and gastric biopsies performed and negative. She was also noted to have a hiatal hernia. On her previous hospitalization the patient underwent computed tomography scan of the abdomen without any abdominal findings to explain pain, with diverticulosis without evidence of diverticulitis noted. X-ray of the abdomen performed on this admission was significant for a nonacute abdomen. The patient has also had evaluation with ultrasound of the abdomen in 10/2018 which was significant for prior cholecystectomy, benign-appearing liver cyst and a CBD measuring 1.1 cm. Patient denies any change in bowel movements or blood per rectum, but did have 1 episode of loose stool prior to presentation. Due to persistent symptoms EMS was called and she was found to be hypoglycemic. On presentation to the hospital hemoglobin initially found to be 10.2 and fell to 10.7, WBC 10.5, platelet count 211,000, total bilirubin 0.4, alkaline phosphatase 49, AST 24 and ALT 25. Stool testing was performed and was negative for occult blood. Review of Systems REVIEW OF SYSTEMS: CONSTITUTIONAL: Denies any fevers, chills, weight change or fatigue. CARDIOVASCULAR: Denies any chest pain, palpitations high or low blood pressures RESPIRATORY: Denies any shortness of breath, hemoptysis or cough. GENITOURINARY: No dysuria or hematuria. MUSCULOSKELETAL: No weakness reported. SKIN: Denies any new rashes or lesions, jaundice or pallor. PSYCHIATRIC: Denies any depression or anxiety. NEUROLOGY: Denies headache, denies any new focal deficits. EARS/NOSE/THROAT: No recent hearing change, congestion, nasal discharge or sore throat. EYES: No pain in eyes, discharge or change in vision. GASTROINTESTINAL: As per HPI. Past Medical History Past Medical History: Atrial Fibrillation, Chest Pain / Angina, Heart Failure, Diabetes Mellitus, GERD/Reflux, Hyperlipidemia, Hypertension, Osteoarthritis (OA), Respiratory Disorder, Sleep Apnea/CPAP/BIPAP, Thyroid Disorder Additional Past Medical History / Comment(s): DDD WITH BACK PAIN, OCCASIONAL SWELLING IN FEET, USES C-PAP MACHINE. History of Any Multi-Drug Resistant Organisms: None Reported Past Surgical History: Cholecystectomy, Hysterectomy, Joint Replacement Additional Past Surgical History / Comment(s): EGD for gastric reflux. Excision of lipomas. bilateral cataracts, total knee., Pain clinic procedures. Past Anesthesia/Blood Transfusion Reactions: No Reported Reaction Past Psychological History: Anxiety, Depression Smoking Status: Former smoker Past Alcohol Use History: None Reported Past Drug Use History: None Reported - Past Family History Brother(s) Family Medical History: Congestive Heart Failure (CHF), COPD, Coronary Artery Disease (CAD), Diabetes Mellitus Daughter(s) Additional Family Medical History / Comment(s): One from MVA Son(s) Family Medical History: Diabetes Mellitus, Hyperlipidemia, Hypertension Sister(s) Family Medical History: Cancer Mother Family Medical History: Dementia Father Family Medical History: COPD Additional Family Medical History / Comment(s): EMPHYSEMA. Medications and Allergies Home Medications Medication Instructions Recorded Confirmed Type Sertraline [Zoloft] 25 mg PO DAILY 10/18/15 12/15/18 History Apixaban [Eliquis] 2.5 mg PO BID 02/14/16 12/15/18 History Losartan/Hydrochlorothiazide 1 tab PO DAILY 09/02/16 12/15/18 History [Hyzaar 100-25 Tablet] Diltiazem Cd [Cardizem CD] 180 mg PO DAILY #30 cap.er.24h 07/24/18 12/15/18 Rx Pantoprazole Sodium [Protonix] 40 mg PO BID 09/14/18 12/15/18 History metFORMIN HCL 850 mg PO HS 11/03/18 12/15/18 History Cephalexin [Keflex] 500 mg PO Q8HR 7 Days #21 cap 12/04/18 12/15/18 Rx Dicyclomine [Bentyl] 10 mg PO TID 30 Days #90 cap 12/04/18 12/15/18 Rx HYDROcodone/APAP 7.5-325MG [[place] 1 tab PO BID 12/15/18 12/15/18 History 7.5-325] glipiZIDE [Glucotrol] 5 mg PO BID@1300,1800 12/15/18 12/15/18 History Allergies Allergy/AdvReac Type Severity Reaction Status Date / Time aspirin AdvReac Dyspnea,Nausea/Vomiting,Dizzy,Tingling,Warm Verified 12/15/18 20:51 sensation Physical Exam Vitals: Vital Signs Temp Pulse Pulse Resp BP BP Pulse Ox 12/16/18 16:00 97.8 F 74 16 116/58 99 12/16/18 12:16 97.8 F 99 16 138/67 99 12/16/18 08:22 98.2 F 84 16 131/66 99 12/16/18 03:30 92 16 122/56 98 12/16/18 03:26 90 18 12/16/18 00:03 98 F 82 18 128/65 100 12/15/18 23:27 98.1 F 90 18 145/73 99 12/15/18 23:08 84 16 109/67 95 12/15/18 21:53 80 18 109/67 99 12/15/18 20:45 79 18 125/52 99 Intake and Output 12/16/18 12/16/18 12/16/18 06:59 14:59 22:59 Other: Voiding Method Toilet Toilet Toilet Diaper Diaper Diaper # Voids 1 1 1 # Bowel Movements 1 1 Weight 88.6 kg On physical examination, patient appears comfortable in no apparent distress. HEAD: Normocephalic, atraumatic. EYES: No scleral icterus. No conjunctival injection. MOUTH: No lesions, tongue midline. NECK: Trachea midline, no gross abnormalities. CHEST: Clear to auscultation with no wheezing or rhonchi appreciated. HEART: Irregularly irregular. ABDOMEN: Soft, obese. Bowel sounds are positive. No organomegaly. No guarding or rigidity. EXTREMITIES: No pedal edema. SKIN: No rashes, no jaundice. NEUROLOGIC: Alert and oriented x3. No focal deficits. Results CBC & Chem 7: 12/16/18 06:15 12/16/18 06:15 Labs: Abnormal Lab Results - Last 24 Hours (Table) 12/15/18 12/15/18 12/15/18 Range/Units 20:40 20:40 22:00 RBC 3.13 L (3.80-5.40) m/uL Hgb 9.3 L D (11.4-16.0) gm/dL Hct 29.3 L (34.0-46.0) % Neutrophils # 8.8 H (1.3-7.7) k/uL Lymphocytes # 0.6 L (1.0-4.8) k/uL Potassium 2.5 L* (3.5-5.1) mmol/L Chloride 112 H (98-107) mmol/L Carbon Dioxide (22-30) mmol/L Creatinine 0.39 L (0.52-1.04) mg/dL Glucose (74-99) mg/dL POC Glucose (mg/dL) 102 H (75-99) mg/dL Calcium 5.9 L* (8.4-10.2) mg/dL Alkaline Phosphatase 34 L (38-126) U/L Total Protein 4.1 L (6.3-8.2) g/dL Albumin 2.2 L (3.5-5.0) g/dL Vitamin D 25-Hydroxy (30.0-100.0) ng/mL Urine Glucose (UA) (Negative) 12/15/18 12/16/18 12/16/18 Range/Units 23:00 02:08 02:33 RBC (3.80-5.40) m/uL Hgb (11.4-16.0) gm/dL Hct (34.0-46.0) % Neutrophils # (1.3-7.7) k/uL Lymphocytes # (1.0-4.8) k/uL Potassium (3.5-5.1) mmol/L Chloride (98-107) mmol/L Carbon Dioxide (22-30) mmol/L Creatinine (0.52-1.04) mg/dL Glucose (74-99) mg/dL POC Glucose (mg/dL) 56 L 54 L (75-99) mg/dL Calcium (8.4-10.2) mg/dL Alkaline Phosphatase (38-126) U/L Total Protein (6.3-8.2) g/dL Albumin (3.5-5.0) g/dL Vitamin D 25-Hydroxy (30.0-100.0) ng/mL Urine Glucose (UA) 1+ H (Negative) 12/16/18 12/16/18 12/16/18 Range/Units 02:58 04:06 04:35 RBC (3.80-5.40) m/uL Hgb (11.4-16.0) gm/dL Hct (34.0-46.0) % Neutrophils # (1.3-7.7) k/uL Lymphocytes # (1.0-4.8) k/uL Potassium (3.5-5.1) mmol/L Chloride (98-107) mmol/L Carbon Dioxide (22-30) mmol/L Creatinine (0.52-1.04) mg/dL Glucose (74-99) mg/dL POC Glucose (mg/dL) 112 H 56 L 144 H (75-99) mg/dL Calcium (8.4-10.2) mg/dL Alkaline Phosphatase (38-126) U/L Total Protein (6.3-8.2) g/dL Albumin (3.5-5.0) g/dL Vitamin D 25-Hydroxy (30.0-100.0) ng/mL Urine Glucose (UA) (Negative) 12/16/18 12/16/18 12/16/18 Range/Units 06:15 06:15 06:15 RBC 3.52 L (3.80-5.40) m/uL Hgb 10.7 L (11.4-16.0) gm/dL Hct 33.3 L (34.0-46.0) % Neutrophils # 8.3 H (1.3-7.7) k/uL Lymphocytes # (1.0-4.8) k/uL Potassium (3.5-5.1) mmol/L Chloride (98-107) mmol/L Carbon Dioxide 35 H (22-30) mmol/L Creatinine (0.52-1.04) mg/dL Glucose 54 L (74-99) mg/dL POC Glucose (mg/dL) (75-99) mg/dL Calcium (8.4-10.2) mg/dL Alkaline Phosphatase (38-126) U/L Total Protein 5.4 L (6.3-8.2) g/dL Albumin 3.1 L (3.5-5.0) g/dL Vitamin D 25-Hydroxy 14.7 L (30.0-100.0) ng/mL Urine Glucose (UA) (Negative) 12/16/18 12/16/18 12/16/18 Range/Units 06:31 07:41 12:00 RBC (3.80-5.40) m/uL Hgb (11.4-16.0) gm/dL Hct (34.0-46.0) % Neutrophils # (1.3-7.7) k/uL Lymphocytes # (1.0-4.8) k/uL Potassium (3.5-5.1) mmol/L Chloride (98-107) mmol/L Carbon Dioxide (22-30) mmol/L Creatinine (0.52-1.04) mg/dL Glucose (74-99) mg/dL POC Glucose (mg/dL) 65 L 64 L 39 L (75-99) mg/dL Calcium (8.4-10.2) mg/dL Alkaline Phosphatase (38-126) U/L Total Protein (6.3-8.2) g/dL Albumin (3.5-5.0) g/dL Vitamin D 25-Hydroxy (30.0-100.0) ng/mL Urine Glucose (UA) (Negative) 12/16/18 12/16/18 12/16/18 Range/Units 12:22 12:47 15:50 RBC (3.80-5.40) m/uL Hgb (11.4-16.0) gm/dL Hct (34.0-46.0) % Neutrophils # (1.3-7.7) k/uL Lymphocytes # (1.0-4.8) k/uL Potassium (3.5-5.1) mmol/L Chloride (98-107) mmol/L Carbon Dioxide (22-30) mmol/L Creatinine (0.52-1.04) mg/dL Glucose (74-99) mg/dL POC Glucose (mg/dL) 53 L 67 L 66 L (75-99) mg/dL Calcium (8.4-10.2) mg/dL Alkaline Phosphatase (38-126) U/L Total Protein (6.3-8.2) g/dL Albumin (3.5-5.0) g/dL Vitamin D 25-Hydroxy (30.0-100.0) ng/mL Urine Glucose (UA) (Negative) 12/16/18 12/16/18 12/16/18 Range/Units 16:10 16:47 17:33 RBC (3.80-5.40) m/uL Hgb (11.4-16.0) gm/dL Hct (34.0-46.0) % Neutrophils # (1.3-7.7) k/uL Lymphocytes # (1.0-4.8) k/uL Potassium (3.5-5.1) mmol/L Chloride (98-107) mmol/L Carbon Dioxide (22-30) mmol/L Creatinine (0.52-1.04) mg/dL Glucose (74-99) mg/dL POC Glucose (mg/dL) 67 L 62 L 73 L (75-99) mg/dL Calcium (8.4-10.2) mg/dL Alkaline Phosphatase (38-126) U/L Total Protein (6.3-8.2) g/dL Albumin (3.5-5.0) g/dL Vitamin D 25-Hydroxy (30.0-100.0) ng/mL Urine Glucose (UA) (Negative) Abdominal x-ray: report reviewed (X-ray abdomen, with no acute findings noted.) Assessment and Plan (1) Abdominal pain Narrative/Plan: 88-year-old female with medical comorbidities including atrial fibrillation on Eliquis, TENZIN, diabetes mellitus and hypothyroidism who presented to the hospital with a constellation of symptoms after calling EMS because she had not been feeling well over the prior 3 days and being found to be hypoglycemic. Currently she continues to report severe vague epigastric abdominal pain worse with eating and on exertion. Multiple investigations of the pain in the past including an EGD which showed hiatal hernia, gastritis after which the patient was started on a Protonix twice daily and Bentyl 10 mg 3 times a day. Other investigations have included an ultrasound of the abdomen in 10/2018 which showed a CBD measuring 1.1 cm, benign-appearing hepatic cysts and an absent gallbladder. CT of the abdomen on admission earlier in 11/2018 was significant for diverticulosis without evidence of diverticulitis. X-ray of the abdomen on current admission consistent with a nonacute abdomen. Unclear etiology of pain with no findings of peptic ulcer disease on EGD, differential includes uncontr olled GERD, functional bowel disorder, given normal liver enzymes choledocholithiasis remains less likely. Current Visit: No Status: Acute Code(s): R10.9 - UNSPECIFIED ABDOMINAL PAIN SNOMED Code(s): 91786015 (2) Anemia, normocytic normochromic Narrative/Plan: No signs or symptoms of GI bleeding reported and stool tested negative for occult blood. Hemoglobin has always been normal in the past. Current Visit: Yes Status: Acute Code(s): D64.9 - ANEMIA, UNSPECIFIED SNOMED Code(s): 98426574 Plan: Supportive care Continue Protonix 40 mg twice daily Will increase dose of Bentyl to 20 mg every 8 hours We'll order further studies for investigation of anemia Although unlikely patient has been noted to have a dilated common bile duct in the past, and this is most certainly secondary to postcholecystectomy state however given recurrence of episodes of abdominal pain may benefit from an MRI of the abdomen Patient's pain appears to be noncardiac, however given multiple comorbidities including obesity, diabetes mellitus and advanced age she may benefit from cardiac evaluation if there is no improvement with increased antispasmodic medication or findings on MRI to explain pain Thank you for allowing us to participate in the care of the patient we will continue to follow
[2018-12-16] MEDS: DICYCLOMINE 20 MG TAB PO SCH (21:06)
[2018-12-16 21:38] LABS: Glucose,Whole Blood 117 mg/dL (75-99)
[2018-12-16 23:35] LABS: Glucose,Whole Blood 108 mg/dL (75-99)
[2018-12-17 02:21] LABS: Glucose,Whole Blood 124 mg/dL (75-99)
[2018-12-17 04:14] LABS: Glucose,Whole Blood 97 mg/dL (75-99)
[2018-12-17 06:05] LABS: Glucose,Whole Blood 105 mg/dL (75-99)
[2018-12-17 07:12] LABS: Basophils % (A) 0 %; Eosinophils # (A) 0.1 k/uL (0-0.7); Eosinophils % (A) 1 %; HCT 35.6 % (34.0-46.0); Lymphocytes # (A) 1.8 k/uL (1.0-4.8); Lymphocytes % (A) 19 %; MCH 29.5 pg (25.0-35.0); MCV 95.4 fL (80.0-100.0); Monocytes # (A) 0.6 k/uL (0-1.0); Monocytes % (A) 6 %; Neutrophils # (A) 6.8 k/uL (1.3-7.7); Neutrophils % (A) 73 %; Platelet Count 205 k/uL (150-450); RBC 3.73 m/uL (3.80-5.40); RDW 13.8 % (11.5-15.5); WBC 9.3 k/uL (3.8-10.6)
[2018-12-17 07:13] LABS: Reticulocyte % 1.2 % (0.5-2.0)
[2018-12-17] MEDS: HYDROcodone/APAP 7.5-325MG 1 EACH TAB PO PRN (07:15)
[2018-12-17 07:23] LABS: ALT 34 U/L (9-52); AST 26 U/L (14-36); African American GFR (CKD) >90 (>60 ml/min/1.73 sqM); Albumin 3.1 g/dL (3.5-5.0); Alkaline Phosphatase 47 U/L (38-126); Amylase 36 U/L (30-110); Anion Gap 3 mmol/L; Blood Urea Nitrogen 12 mg/dL (7-17); Calcium 8.5 mg/dL (8.4-10.2); Carbon Dioxide 38 mmol/L (22-30); Chloride 100 mmol/L (98-107); Glucose 109 mg/dL (74-99); Lipase 30 U/L (23-300); Magnesium 1.9 mg/dL (1.6-2.3); Potassium 4.9 mmol/L (3.5-5.1); Sodium 141 mmol/L (137-145); Total Bilirubin 0.5 mg/dL (0.2-1.3); Total Protein 5.6 g/dL (6.3-8.2)
[2018-12-17] MEDS: SERTRALINE 25 MG TAB PO SCH (08:05)
[2018-12-17] MEDS: LOSARTAN 50 MG TAB PO SCH (08:05)
[2018-12-17] MEDS: DICYCLOMINE 20 MG TAB PO SCH ×3 (08:05→22:40)
[2018-12-17] MEDS: DILTIAZEM CD 180 MG CAP.ER.24H PO SCH (08:05)
[2018-12-17] MEDS: PANTOPRAZOLE 40 MG TABLET PO SCH ×2 (08:05→20:12)
[2018-12-17] MEDS: APIXABAN 2.5 MG TABLET PO SCH ×2 (08:05→20:12)
[2018-12-17 08:06] LABS: Glucose,Whole Blood 110 mg/dL (75-99)
[2018-12-17 10:56] LABS: Glucose,Whole Blood 171 mg/dL (75-99)
[2018-12-17 12:40] LABS: Glucose,Whole Blood 153 mg/dL (75-99)
--- NOTE | 2018-12-17 13:56 | P.PN ---
Subjective Progress Note Date: 12/17/18 Principal diagnosis: Fatigue Patient was seen and examined. No acute events overnight. Patient reports fatigue and tiredness today. Patient also reports a decreased appetite, states that she cannot taste anything. She denies any other symptoms. She denies any chest pain, shortness of breath or palpitations. No nausea or vomiting. No fever or chills. Objective - Vital Signs Vital signs: Vital Signs Temp 97.8 F 12/17/18 12:00 Pulse 86 12/17/18 12:00 Resp 18 12/17/18 12:00 BP 132/62 12/17/18 12:00 Pulse Ox 99 12/17/18 12:00 Intake & Output 12/16/18 12/17/18 12/17/18 18:59 06:59 18:59 Weight 89.9 kg Other: Voiding Method Toilet Toilet Toilet Diaper Diaper Diaper # Voids 1 2 # Bowel Movements 1 - Exam General: [non toxic], [no distress], [appears at stated age] Derm: [warm], [dry] Head: [atraumatic], [normocephalic], [symmetric] Eyes: [EOMI], [no lid lag], [anicteric sclera] Mouth: [no lip lesion], [mucus membranes moist] Cardiovascular: [S1S2 reg], [no murmur], [positive posterior tibial pulse bilateral], Lungs: [CTA bilateral], [no rhonchi, no rales] , [no accessory muscle use] Abdominal: [soft], [ nontender to palpation], [no guarding], [no appreciable organomegaly] Ext: [no gross muscle atrophy], [1+ lower extremity edema], [no contractures] Neuro: [no focal neuro deficits] Psych: [Alert], [oriented], [appropriate affect] - Labs CBC & Chem 7: 12/17/18 06:35 12/17/18 06:35 Labs: Abnormal Lab Results - Last 24 Hours (Table) 12/16/18 12/16/18 12/16/18 Range/Units 15:50 16:10 16:47 RBC (3.80-5.40) m/uL Hgb (11.4-16.0) gm/dL Carbon Dioxide (22-30) mmol/L Glucose (74-99) mg/dL POC Glucose (mg/dL) 66 L 67 L 62 L (75-99) mg/dL Total Protein (6.3-8.2) g/dL Albumin (3.5-5.0) g/dL 12/16/18 12/16/18 12/16/18 Range/Units 17:33 21:36 23:29 RBC (3.80-5.40) m/uL Hgb (11.4-16.0) gm/dL Carbon Dioxide (22-30) mmol/L Glucose (74-99) mg/dL POC Glucose (mg/dL) 73 L 117 H 108 H (75-99) mg/dL Total Protein (6.3-8.2) g/dL Albumin (3.5-5.0) g/dL 12/17/18 12/17/18 12/17/18 Range/Units 02:11 06:02 06:35 RBC 3.73 L (3.80-5.40) m/uL Hgb 11.0 L (11.4-16.0) gm/dL Carbon Dioxide (22-30) mmol/L Glucose (74-99) mg/dL POC Glucose (mg/dL) 124 H 105 H (75-99) mg/dL Total Protein (6.3-8.2) g/dL Albumin (3.5-5.0) g/dL 12/17/18 12/17/18 12/17/18 Range/Units 06:35 08:03 10:36 RBC (3.80-5.40) m/uL Hgb (11.4-16.0) gm/dL Carbon Dioxide 38 H (22-30) mmol/L Glucose 109 H (74-99) mg/dL POC Glucose (mg/dL) 110 H 171 H (75-99) mg/dL Total Protein 5.6 L (6.3-8.2) g/dL Albumin 3.1 L (3.5-5.0) g/dL 12/17/18 Range/Units 12:14 RBC (3.80-5.40) m/uL Hgb (11.4-16.0) gm/dL Carbon Dioxide (22-30) mmol/L Glucose (74-99) mg/dL POC Glucose (mg/dL) 153 H (75-99) mg/dL Total Protein (6.3-8.2) g/dL Albumin (3.5-5.0) g/dL Assessment and Plan Assessment: Assessment and Plan Symptomatic hypoglycemia Hypokalemia and hypocalcemia Anemia Atrial fibrillation Blood glucose 97-171 today. Hypoglycemic despite eating adequate amounts of food. Patient is on glipizide and metformin at home, likely cause. Plans: DC all oral hypoglycemics. Accu-Cheks every 2 hours. Start D5 at 50 mL per hour. Fall precautions. Follow PT and OT recommendations. Potassium 2.5-within normal limits. Calcium 5.9-within normal limits. PTH within normal limits. Vitamin D slightly decrease of 14.7. Unknown cause. Replaced via protocol. Plans: Replace via protocol. Within normal limits today. Wonder if this was a lab error? Hemoglobin from 12.2 on December 04 to 9.3-10.7-11 on this admission. Patient denies any signs of bleeding. Plans: Daily CBC. Follow GI consultation. Protonix 40 mg by mouth twice a day. Follow iron studies, B12 and folate. Wonder if this was a lab error? Stable. Continue Eliquis for anticoagulation. Continue Cardizem for rate control. Patient's hypoglycemia this seems to have resolved as her blood glucoses maintaining better today. Hemoglobin is also improved. Her electrolytes are within normal limits. Will observe her 1 more night for Accu-Cheks and possibly discharge her home tomorrow morning.
[2018-12-17 14:30] LABS: Glucose,Whole Blood 208 mg/dL (75-99)
[2018-12-17] MEDS: CYCLOBENZAPRINE 5 MG TAB PO PRN ×2 (15:08→22:52)
[2018-12-17] MEDS: DEXTROSE 5%-0.9% NACL 1,000 ML IV SCH ×2 (15:11→23:07)
[2018-12-17 15:31] LABS: Glucose,Whole Blood 193 mg/dL (75-99)
[2018-12-17 17:37] LABS: Glucose,Whole Blood 183 mg/dL (75-99)
[2018-12-17 19:14] LABS: Glucose,Whole Blood 194 mg/dL (75-99)
--- NOTE | 2018-12-17 19:44 | P.PN ---
Subjective Progress Note Date: 12/17/18 Principal diagnosis: Abdominal pain, anemia Patient seen sitting bedside reports feeling weak overall but actually stating that abdominal pain has been better. Tolerating her diet. No blood per rectum. Objective - Vital Signs Vital signs: Vital Signs Temp 97.8 F 12/17/18 16:00 Pulse 82 12/17/18 16:00 Resp 18 12/17/18 16:00 BP 154/78 12/17/18 16:00 Pulse Ox 98 12/17/18 16:00 Intake & Output 12/17/18 12/17/18 12/18/18 06:59 18:59 06:59 Weight 89.9 kg Other: Voiding Method Toilet Toilet Diaper Diaper # Voids 2 1 # Bowel Movements 1 - Exam On physical examination, patient appears comfortable in no apparent distress. HEAD: Normocephalic, atraumatic. EYES: No scleral icterus. No conjunctival injection. MOUTH: No lesions, tongue midline. NECK: Trachea midline, no gross abnormalities. CHEST: Decreased air entry bilaterally. ABDOMEN: Soft, obese. Bowel sounds are positive. No organomegaly. No guarding or rigidity. EXTREMITIES: No pedal edema. SKIN: No rashes, no jaundice. NEUROLOGIC: Alert and oriented x3. No focal deficits. - Labs CBC & Chem 7: 12/17/18 06:35 12/17/18 06:35 Labs: Abnormal Lab Results - Last 24 Hours (Table) 12/16/18 12/16/18 12/17/18 Range/Units 21:36 23:29 02:11 RBC (3.80-5.40) m/uL Hgb (11.4-16.0) gm/dL Carbon Dioxide (22-30) mmol/L Glucose (74-99) mg/dL POC Glucose (mg/dL) 117 H 108 H 124 H (75-99) mg/dL Total Protein (6.3-8.2) g/dL Albumin (3.5-5.0) g/dL 12/17/18 12/17/18 12/17/18 Range/Units 06:02 06:35 06:35 RBC 3.73 L (3.80-5.40) m/uL Hgb 11.0 L (11.4-16.0) gm/dL Carbon Dioxide 38 H (22-30) mmol/L Glucose 109 H (74-99) mg/dL POC Glucose (mg/dL) 105 H (75-99) mg/dL Total Protein 5.6 L (6.3-8.2) g/dL Albumin 3.1 L (3.5-5.0) g/dL 12/17/18 12/17/18 12/17/18 Range/Units 08:03 10:36 12:14 RBC (3.80-5.40) m/uL Hgb (11.4-16.0) gm/dL Carbon Dioxide (22-30) mmol/L Glucose (74-99) mg/dL POC Glucose (mg/dL) 110 H 171 H 153 H (75-99) mg/dL Total Protein (6.3-8.2) g/dL Albumin (3.5-5.0) g/dL 12/17/18 12/17/18 12/17/18 Range/Units 14:10 15:18 17:35 RBC (3.80-5.40) m/uL Hgb (11.4-16.0) gm/dL Carbon Dioxide (22-30) mmol/L Glucose (74-99) mg/dL POC Glucose (mg/dL) 208 H 193 H 183 H (75-99) mg/dL Total Protein (6.3-8.2) g/dL Albumin (3.5-5.0) g/dL 12/17/18 Range/Units 19:12 RBC (3.80-5.40) m/uL Hgb (11.4-16.0) gm/dL Carbon Dioxide (22-30) mmol/L Glucose (74-99) mg/dL POC Glucose (mg/dL) 194 H (75-99) mg/dL Total Protein (6.3-8.2) g/dL Albumin (3.5-5.0) g/dL Assessment and Plan (1) Abdominal pain Narrative/Plan: 88-year-old female with medical comorbidities including atrial fibrillation on Eliquis, TENZIN, diabetes mellitus and hypothyroidism who presented to the hospital with a constellation of symptoms after calling EMS because she had not been feeling well over the prior 3 days and being found to be hypoglycemic. Currently she continues to report severe vague epigastric abdominal pain worse with eating and on exertion. Multiple investigations of the pain in the past including an EGD which showed hiatal hernia, gastritis after which the patient was started on a Protonix twice daily and Bentyl 10 mg 3 times a day. Other investigations have included an ultrasound of the abdomen in 10/2018 which showed a CBD measuring 1.1 cm, benign-appearing hepatic cysts and an absent gallbladder. CT of the abdomen on admission earlier in 11/2018 was significant for diverticulosis without evidence of diverticulitis. X-ray of the abdomen on current admission consistent with a nonacute abdomen. Unclear etiology of pain with no findings of peptic ulcer disease on EGD, differential includes uncontrolled GERD, functional bowel disorder possible as patient reporting improvement in pain on increased dose of dicyclomine today, given normal liver enzymes choledocholithiasis remains less likely. Current Visit: No Status: Acute Code(s): R10.9 - UNSPECIFIED ABDOMINAL PAIN SNOMED Code(s): 65590797 (2) Anemia, normocytic normochromic Narrative/Plan: No signs or symptoms of GI bleeding reported and stool tested negative for occult blood. Hemoglobin has always been normal in the past. Current Visit: Yes Status: Acute Code(s): D64.9 - ANEMIA, UNSPECIFIED SNOMED Code(s): 33915268 Plan: Supportive care Continue Protonix 40 mg twice daily Bentyl to 20 mg every 8 hours We'll order further studies for investigation of anemia Although unlikely patient has been noted to have a dilated common bile duct in the past, and this is most certainly secondary to postcholecystectomy state however given recurrence of episodes of abdominal pain may benefit from an MRI of the abdomen, pending Patient's pain appears to be noncardiac, however given multiple comorbidities including obesity, diabetes mellitus and advanced age she may benefit from cardiac evaluation if there is no improvement with increased antispasmodic medication or findings on MRI to explain pain Thank you for allowing us to participate in the care of the patient we will continue to follow
[2018-12-17 21:02] LABS: Glucose,Whole Blood 236 mg/dL (75-99)
[2018-12-17 22:50] LABS: Glucose,Whole Blood 164 mg/dL (75-99)
[2018-12-18] MEDS: SODIUM CHLORIDE 0.9% 1,000 ML IV SCH (00:39)
[2018-12-18 01:04] LABS: Glucose,Whole Blood 210 mg/dL (75-99)
[2018-12-18 03:02] LABS: Glucose,Whole Blood 177 mg/dL (75-99)
[2018-12-18] MEDS: HYDROcodone/APAP 7.5-325MG 1 EACH TAB PO PRN (03:20)
[2018-12-18 05:20] LABS: Glucose,Whole Blood 176 mg/dL (75-99)
[2018-12-18 06:24] LABS: Glucose,Whole Blood 136 mg/dL (75-99)
[2018-12-18 06:36] LABS: African American GFR (CKD) >90 (>60 ml/min/1.73 sqM); Anion Gap 3 mmol/L; Basophils % (A) 0 %; Blood Urea Nitrogen 10 mg/dL (7-17); Calcium 8.3 mg/dL (8.4-10.2); Carbon Dioxide 37 mmol/L (22-30); Chloride 101 mmol/L (98-107); Eosinophils # (A) 0.1 k/uL (0-0.7); Eosinophils % (A) 1 %; Glucose 141 mg/dL (74-99); HCT 32.5 % (34.0-46.0); HGB 10.3 gm/dL (11.4-16.0); Lymphocytes # (A) 1.9 k/uL (1.0-4.8); Lymphocytes % (A) 19 %; MCH 29.8 pg (25.0-35.0); MCHC 31.8 g/dL (31.0-37.0); MCV 93.7 fL (80.0-100.0); Mean Platelet Volume 7.8; Monocytes # (A) 0.6 k/uL (0-1.0); Monocytes % (A) 6 %; Neutrophils # (A) 7.4 k/uL (1.3-7.7); Neutrophils % (A) 74 %; Platelet Count 191 k/uL (150-450); Potassium 4.2 mmol/L (3.5-5.1); RBC 3.47 m/uL (3.80-5.40); RDW 14.3 % (11.5-15.5); Sodium 141 mmol/L (137-145)
[2018-12-18] MEDS: INSULIN ASPART (NovoLOG) 100 UNIT/ML VIAL SQ SCH ×4 (06:39→21:35)
[2018-12-18] MEDS: APIXABAN 2.5 MG TABLET PO SCH ×2 (07:47→20:24)
[2018-12-18] MEDS: DICYCLOMINE 20 MG TAB PO SCH ×3 (07:47→21:35)
[2018-12-18] MEDS: LOSARTAN 50 MG TAB PO SCH (07:47)
[2018-12-18] MEDS: SERTRALINE 25 MG TAB PO SCH (07:47)
[2018-12-18] MEDS: DILTIAZEM CD 180 MG CAP.ER.24H PO SCH (07:47)
[2018-12-18] MEDS: PANTOPRAZOLE 40 MG TABLET PO SCH ×2 (07:48→20:24)
[2018-12-18 10:08] LABS: Folate, Serum 16.7 ng/mL
[2018-12-18 11:05] LABS: Iron Saturation 7.24 (12.00-45.00)
--- NOTE | 2018-12-18 11:27 | P.PN ---
Subjective Progress Note Date: 12/18/18 88-year-old female with history of A. fib on Eliquis, obstructive sleep apnea, diabetes. Patient came into the ED today due to not feeling well, she has been feeling tired and progressively sick over the past 3 days. she reports that she felt bloated with some discomfort in her belly for which she took Mylanta after which she had one episodes of diarrhea. Then later on today she continued to feel wea k and tired and shaky with some episodes of blurry vision. Denies any chest pain or trouble breathing she spent the day resting and sleeping in bed. However she became very sick toward the end of the day for which she called EMS who found her to be hypoglycemic with blood sugar of 35 she takes oral hypoglycemic agents. Patient was given some orange juice and food and started feeling better In the emergency department she was found to have electrolyte imbalance with hypokalemia hypocalcemia, labs also showed new onset anemia of 9.3. Patient is not aware of any GI bleeding she does not check her bowel movements. She is on Eliquis for A. fib. Otherwise she denies any fevers or chills denies any coughing or chest pain. Denies any nausea or vomiting. Patient had an MRI of the lower back yesterday showed degenerative spine disease, also found an incidental finding of right kidney cyst possibly hemorrhagic Patient was recently hospitalized for cellulitis treated with Keflex. She was a lso found at that time to have diverticulosis on a CAT scan of the abdomen along with chronic hepatic cyst. EGD was performed at that time showed gastritis. Patient does take a lot of pain medications for her chronic low back pain includes NSAIDs. Patient normally ambulates using a walker she had a recent fall outside in the bushes where she scraped her leg and of left cellulitis for which she was treated for last admission. No further falls after that episode she continues to use the walker to ambulate. She uses a CPAP machine for obstructive sleep apnea. 12/18/2018 patient was covered by the [facility] physicians this weekend. She still reporting abdominal pain mostly in the epigastric area. She still feels weak and shaky. Patient is scheduled for an MRI of the abdomen ordered by GI service. It has been 2 days since her last bowel movement. GI service did place her on Protonix and Bentyl. Blood sugar this morning is 136. Patient had EGD completed on 12/04/2018 revealing mild gastritis and small hiatal hernia. Hypoglycemia has not resolved. She is currently on sliding scale coverage. Still reporting a decrease in appetite. Objective - Vital Signs Vital signs: Vital Signs Temp 97.7 F 12/18/18 07:50 Pulse 72 12/18/18 07:50 Resp 17 12/18/18 07:50 BP 136/65 12/18/18 07:50 Pulse Ox 100 12/18/18 07:50 Intake & Output 12/17/18 12/18/18 12/18/18 18:59 06:59 18:59 Intake Total 950 Balance 950 Weight 90.3 kg Intake: Intake, IV Titration 150 Amount Dextrose 5%-0.9% NaCl 1, 150 000 ml @ 100 mls/hr IV . Q10H [facility] Rx#:[id number] Oral 800 Other: Voiding Method Toilet Toilet Toilet Diaper Diaper Diaper # Voids 1 2 1 # Bowel Movements 1 - Exam Head normocephalic Neck supple Lungs clear to auscultation bilaterally no wheezing or crackles Heart regular rate and rhythm S1-S2, no rub or gallop Abdomen is soft epigastric tenderness distended positive bowel sounds no hepatosplenomegaly Extremities no edema Neuro alert and orientated to 3 - Labs CBC & Chem 7: 12/18/18 06:14 12/18/18 06:14 Labs: Abnormal Lab Results - Last 24 Hours (Table) 12/17/18 12/17/18 12/17/18 Range/Units 06:35 12:14 14:10 RBC (3.80-5.40) m/uL Hgb (11.4-16.0) gm/dL Hct (34.0-46.0) % Carbon Dioxide (22-30) mmol/L Creatinine (0.52-1.04) mg/dL Glucose (74-99) mg/dL POC Glucose (mg/dL) 153 H 208 H (75-99) mg/dL Calcium (8.4-10.2) mg/dL Iron 21 L (50-170) ug/dL Iron Saturation 7.24 L (12.00-45.00) 12/17/18 12/17/18 12/17/18 Range/Units 15:18 17:35 19:12 RBC (3.80-5.40) m/uL Hgb (11.4-16.0) gm/dL Hct (34.0-46.0) % Carbon Dioxide (22-30) mmol/L Creatinine (0.52-1.04) mg/dL Glucose (74-99) mg/dL POC Glucose (mg/dL) 193 H 183 H 194 H (75-99) mg/dL Calcium (8.4-10.2) mg/dL Iron (50-170) ug/dL Iron Saturation (12.00-45.00) 12/17/18 12/17/18 12/18/18 Range/Units 21:01 22:48 01:02 RBC (3.80-5.40) m/uL Hgb (11.4-16.0) gm/dL Hct (34.0-46.0) % Carbon Dioxide (22-30) mmol/L Creatinine (0.52-1.04) mg/dL Glucose (74-99) mg/dL POC Glucose (mg/dL) 236 H 164 H 210 H (75-99) mg/dL Calcium (8.4-10.2) mg/dL Iron (50-170) ug/dL Iron Saturation (12.00-45.00) 12/18/18 12/18/18 12/18/18 Range/Units 03:01 05:19 06:14 RBC 3.47 L (3.80-5.40) m/uL Hgb 10.3 L (11.4-16.0) gm/dL Hct 32.5 L (34.0-46.0) % Carbon Dioxide (22-30) mmol/L Creatinine (0.52-1.04) mg/dL Glucose (74-99) mg/dL POC Glucose (mg/dL) 177 H 176 H (75-99) mg/dL Calcium (8.4-10.2) mg/dL Iron (50-170) ug/dL Iron Saturation (12.00-45.00) 12/18/18 12/18/18 Range/Units 06:14 06:22 RBC (3.80-5.40) m/uL Hgb (11.4-16.0) gm/dL Hct (34.0-46.0) % Carbon Dioxide 37 H (22-30) mmol/L Creatinine 0.50 L (0.52-1.04) mg/dL Glucose 141 H (74-99) mg/dL POC Glucose (mg/dL) 136 H (75-99) mg/dL Calcium 8.3 L (8.4-10.2) mg/dL Iron (50-170) ug/dL Iron Saturation (12.00-45.00) Assessment and Plan Assessment: 1. Symptomatic hypoglycemia: Now resolved. Metformin and glipizide on hold. Continue with sliding scale coverage. She is currently off of the D5 W fluids. Reporting poor appetite. 2. Hypokalemia: Potassium 2.5 on admission now normalized after replacement. 3. Hypocalcemia: Patient did receive supplement. Calcium 5.9 at admission now 8.3. Corrected calcium 9.2. PTH level within normal range 4. Anemia: Likely due to iron deficiency anemia. Patient evaluated by GI service. Stool for occult blood is negative. Iron level low at 21. Start ferrous sulfate 325 mg twice a day. B12 level and folate level within normal range. Continue with the Protonix. Patient had recent EGD November 2018 showing mild gastritis and small hiatal hernia. 5. Hemorrhagic Bilateral renal cysts: Evaluated by urology. [place] that these were low risk for any malignancy. No intervention needed. And per urology cysts were not contributing to patient's symptoms. 6. Abdominal pain: Complaining of bloating and epigastric discomfort. Patient scheduled for MRI of the abdomen today. GI service is following. Per GI differential includes uncontrolled GERD, or functional bowel disorder. 7. Diabetes mellitus2 8. Essential hypertension 9. History of obstructive sleep apnea 10. History of chronic atrial fibrillation anticoagulated with Eliquis 11. Vitamin D insufficiency: We'll place patient on calcium and vitamin D supplement 12. Moderate protein calorie malnutrition add Glucerna shakes GI prophylaxis Protonix and DVT prophylaxis Eliquis Continue PT OT Per physical therapy notes they're recommending home with home care at time of discharge. I performed an examination of the patient and discussed their management with the physician Occupational Therapy Director. I have reviewed the Physician Occupational Therapy Director's notes and agree with the documented findings and plan of care
[2018-12-18 11:31] LABS: Glucose,Whole Blood 114 mg/dL (75-99)
--- NOTE | 2018-12-18 16:03 | P.PN ---
Subjective Progress Note Date: 12/18/18 Principal diagnosis: Abdominal pain, anemia Patient seen sitting bedside still complaining of weakness. Epigastric abdominal pain is still present but she reports that it is less intense than starting increased dose of Bentyl. No nausea or vomiting. Objective - Vital Signs Vital signs: Vital Signs Temp 97.8 F 12/18/18 12:00 Pulse 83 12/18/18 12:00 Resp 17 12/18/18 12:00 BP 140/65 12/18/18 12:00 Pulse Ox 93 L 12/18/18 12:00 Intake & Output 12/17/18 12/18/18 12/18/18 18:59 06:59 18:59 Intake Total 950 240 Balance 950 240 Weight 90.3 kg Intake: Intake, IV Titration 150 Amount Dextrose 5%-0.9% NaCl 1, 150 000 ml @ 100 mls/hr IV . Q10H [facility] Rx#:[id number] Oral 800 240 Other: Voiding Method Toilet Toilet Toilet Diaper Diaper Diaper # Voids 1 2 2 # Bowel Movements 1 - Exam On physical examination, patient appears comfortable in no apparent distress. HEAD: Normocephalic, atraumatic. EYES: No scleral icterus. No conjunctival injection. MOUTH: No lesions, tongue midline. NECK: Trachea midline, no gross abnormalities. CHEST: Decreased air entry bilaterally. ABDOMEN: Soft, obese. Bowel sounds are positive. No organomegaly. No guarding or rigidity. EXTREMITIES: No pedal edema. SKIN: No rashes, no jaundice. NEUROLOGIC: Alert and oriented x3. No focal deficits. - Labs CBC & Chem 7: 12/18/18 06:14 12/18/18 06:14 Labs: Abnormal Lab Results - Last 24 Hours (Table) 12/17/18 12/17/18 12/17/18 Range/Units 06:35 06:35 17:35 RBC (3.80-5.40) m/uL Hgb (11.4-16.0) gm/dL Hct (34.0-46.0) % Haptoglobin 231.0 H (31.2-198.0) mg/dL Carbon Dioxide (22-30) mmol/L Creatinine (0.52-1.04) mg/dL Glucose (74-99) mg/dL POC Glucose (mg/dL) 183 H (75-99) mg/dL Calcium (8.4-10.2) mg/dL Iron 21 L (50-170) ug/dL Iron Saturation 7.24 L (12.00-45.00) 12/17/18 12/17/18 12/17/18 Range/Units 19:12 21:01 22:48 RBC (3.80-5.40) m/uL Hgb (11.4-16.0) gm/dL Hct (34.0-46.0) % Haptoglobin (31.2-198.0) mg/dL Carbon Dioxide (22-30) mmol/L Creatinine (0.52-1.04) mg/dL Glucose (74-99) mg/dL POC Glucose (mg/dL) 194 H 236 H 164 H (75-99) mg/dL Calcium (8.4-10.2) mg/dL Iron (50-170) ug/dL Iron Saturation (12.00-45.00) 12/18/18 12/18/18 12/18/18 Range/Units 01:02 03:01 05:19 RBC (3.80-5.40) m/uL Hgb (11.4-16.0) gm/dL Hct (34.0-46.0) % Haptoglobin (31.2-198.0) mg/dL Carbon Dioxide (22-30) mmol/L Creatinine (0.52-1.04) mg/dL Glucose (74-99) mg/dL POC Glucose (mg/dL) 210 H 177 H 176 H (75-99) mg/dL Calcium (8.4-10.2) mg/dL Iron (50-170) ug/dL Iron Saturation (12.00-45.00) 12/18/18 12/18/18 12/18/18 Range/Units 06:14 06:14 06:22 RBC 3.47 L (3.80-5.40) m/uL Hgb 10.3 L (11.4-16.0) gm/dL Hct 32.5 L (34.0-46.0) % Haptoglobin (31.2-198.0) mg/dL Carbon Dioxide 37 H (22-30) mmol/L Creatinine 0.50 L (0.52-1.04) mg/dL Glucose 141 H (74-99) mg/dL POC Glucose (mg/dL) 136 H (75-99) mg/dL Calcium 8.3 L (8.4-10.2) mg/dL Iron (50-170) ug/dL Iron Saturation (12.00-45.00) 12/18/18 Range/Units 11:28 RBC (3.80-5.40) m/uL Hgb (11.4-16.0) gm/dL Hct (34.0-46.0) % Haptoglobin (31.2-198.0) mg/dL Carbon Dioxide (22-30) mmol/L Creatinine (0.52-1.04) mg/dL Glucose (74-99) mg/dL POC Glucose (mg/dL) 114 H (75-99) mg/dL Calcium (8.4-10.2) mg/dL Iron (50-170) ug/dL Iron Saturation (12.00-45.00) Assessment and Plan (1) Abdominal pain Narrative/Plan: 88-year-old female with medical comorbidities including atrial fibrillation on Eliquis, TENZIN, diabetes mellitus and hypothyroidism who presented to the hospital with a constellation of symptoms after calling EMS because she had not been feeling well over the prior 3 days and being found to be hypoglycemic. Currently she continues to report severe vague epigastric abdominal pain worse with eating and on exertion. Multiple investigations of the pain in the past including an EGD which showed hiatal hernia, gastritis after which the patient was started on a Protonix twice daily and Bentyl 10 mg 3 times a day. Other investigations have included an ultrasound of the abdomen in 10/2018 which showed a CBD measuring 1.1 cm, benign-appearing hepatic cysts and an absent gallbladder. CT of the abdomen on admission earlier in 11/2018 was significant for diverticulosis without evidence of diverticulitis. X-ray of the abdomen on current admission consistent with a nonacute abdomen. Unclear etiology of pain with no findings of peptic ulcer disease on EGD, differential includes uncontrolled GERD, functional bowel disorder possible as patient reporting improvement in pain on increased dose of dicyclomine, given normal liver enzymes choledocholithiasis remains less likely. Current Visit: No Status: Acute Code(s): R10.9 - UNSPECIFIED ABDOMINAL PAIN SNOMED Code(s): 17787384 (2) Anemia, normocytic normochromic Narrative/Plan: No signs or symptoms of GI bleeding reported and stool tested negative for occult blood. Hemoglobin has always been normal in the past. Vitamin B12 and folate normal. Iron is low and supplementation started. Current Visit: Yes Status: Acute Code(s): D64.9 - ANEMIA, UNSPECIFIED SNOMED Code(s): 57471569 Plan: Supportive care Continue Protonix 40 mg twice daily Bentyl to 20 mg every 8 hours MRI abdomen unable to be completed secondary to body habitus Okay for diet Encourage ambulation Thank you for allowing us to participate in the care of the patient we will continue to follow
[2018-12-18 16:39] LABS: Glucose,Whole Blood 168 mg/dL (75-99)
[2018-12-18] MEDS: CALCIUM CARB-VIT D 500MG-200UN 1 EACH TAB PO SCH (17:07)
[2018-12-18] MEDS: DOCUSATE 100 MG CAP PO SCH (20:24)
[2018-12-18] MEDS: FERROUS SULFATE 325 MG TAB PO SCH (20:24)
[2018-12-18 21:29] LABS: Glucose,Whole Blood 174 mg/dL (75-99)
[2018-12-19] MEDS: SODIUM CHLORIDE 0.9% 1,000 ML IV SCH (03:46)
[2018-12-19] MEDS: HYDROcodone/APAP 7.5-325MG 1 EACH TAB PO PRN (05:47)
[2018-12-19 07:41] LABS: Glucose,Whole Blood 156 mg/dL (75-99)
[2018-12-19] MEDS: SERTRALINE 25 MG TAB PO SCH (08:18)
[2018-12-19] MEDS: DICYCLOMINE 20 MG TAB PO SCH ×3 (08:18→21:19)
[2018-12-19] MEDS: LOSARTAN 50 MG TAB PO SCH (08:18)
[2018-12-19] MEDS: APIXABAN 2.5 MG TABLET PO SCH ×2 (08:18→21:19)
[2018-12-19] MEDS: FERROUS SULFATE 325 MG TAB PO SCH ×2 (08:18→21:19)
[2018-12-19] MEDS: CALCIUM CARB-VIT D 500MG-200UN 1 EACH TAB PO SCH ×2 (08:18→16:50)
[2018-12-19] MEDS: PANTOPRAZOLE 40 MG TABLET PO SCH ×2 (08:18→21:19)
[2018-12-19] MEDS: INSULIN ASPART (NovoLOG) 100 UNIT/ML VIAL SQ SCH ×4 (08:18→21:19)
[2018-12-19] MEDS: DOCUSATE 100 MG CAP PO SCH (08:18)
[2018-12-19] MEDS: DILTIAZEM CD 180 MG CAP.ER.24H PO SCH (09:39)
--- NOTE | 2018-12-19 10:27 | P.PN ---
Subjective Progress Note Date: 12/19/18 88-year-old female with history of A. fib on Eliquis, obstructive sleep apnea, diabetes. Patient came into the ED today due to not feeling well, she has been feeling tired and progressively sick over the past 3 days. she reports that she felt bloated with some discomfort in her belly for which she took Mylanta after which she had one episodes of diarrhea. Then later on today she continued to feel wea k and tired and shaky with some episodes of blurry vision. Denies any chest pain or trouble breathing she spent the day resting and sleeping in bed. However she became very sick toward the end of the day for which she called EMS who found her to be hypoglycemic with blood sugar of 35 she takes oral hypoglycemic agents. Patient was given some orange juice and food and started feeling better In the emergency department she was found to have electrolyte imbalance with hypokalemia hypocalcemia, labs also showed new onset anemia of 9.3. Patient is not aware of any GI bleeding she does not check her bowel movements. She is on Eliquis for A. fib. Otherwise she denies any fevers or chills denies any coughing or chest pain. Denies any nausea or vomiting. Patient had an MRI of the lower back yesterday showed degenerative spine disease, also found an incidental finding of right kidney cyst possibly hemorrhagic Patient was recently hospitalized for cellulitis treated with Keflex. She was a lso found at that time to have diverticulosis on a CAT scan of the abdomen along with chronic hepatic cyst. EGD was performed at that time showed gastritis. Patient does take a lot of pain medications for her chronic low back pain includes NSAIDs. Patient normally ambulates using a walker she had a recent fall outside in the bushes where she scraped her leg and of left cellulitis for which she was treated for last admission. No further falls after that episode she continues to use the walker to ambulate. She uses a CPAP machine for obstructive sleep apnea. 12/18/2018 patient was covered by the [facility] physicians this weekend. She still reporting abdominal pain mostly in the epigastric area. She still feels weak and shaky. Patient is scheduled for an MRI of the abdomen ordered by GI service. It has been 2 days since her last bowel movement. GI service did place her on Protonix and Bentyl. Blood sugar this morning is 136. Patient had EGD completed on 12/04/2018 revealing mild gastritis and small hiatal hernia. Hypoglycemia has not resolved. She is currently on sliding scale coverage. Still reporting a decrease in appetite. 12/19/2018 patient still complaining of abdominal pain. She reports that her pain had been doing better initially when the new medicine was started. However now she is complaining again of epigastric discomfort. Also reporting that her stomach is bigger than it usually is. She is now having loose stools. Stool for C. diff has been ordered and a computed tomography scan of the abdomen and pelvis with oral and IV contrast have been ordered. Patient also complaining of lower back pain and bilateral hip pain. Patient does usually have pain in the back and hip area. Objective - Vital Signs Vital signs: Vital Signs Temp 98.2 F 12/19/18 05:10 Pulse 116 H 12/19/18 08:00 Resp 20 12/19/18 08:00 BP 159/79 12/19/18 05:10 Pulse Ox 95 12/19/18 05:10 Intake & Output 12/18/18 12/19/18 12/19/18 18:59 06:59 18:59 Intake Total 480 100 Balance 480 100 Weight 91.5 kg Intake: Oral 480 100 Other: Voiding Method Toilet Toilet Toilet Diaper Diaper Diaper # Voids 2 1 # Bowel Movements 0 - Exam Head normocephalic Neck supple Lungs clear to auscultation bilaterally no wheezing or crackles Heart regular rate and rhythm S1-S2, no rub or gallop Abdomen is soft epigastric tenderness distended positive bowel sounds no hepatosplenomegaly Extremities no edema Neuro alert and orientated to 3 Muscle skeletal exam tenderness to palpation of the lumbar spine and sacral spine. No rashes or lesions noted - Labs CBC & Chem 7: 12/18/18 06:14 12/18/18 06:14 Labs: Abnormal Lab Results - Last 24 Hours (Table) 12/17/18 12/17/18 12/18/18 Range/Units 06:35 06:35 11:28 Haptoglobin 231.0 H (31.2-198.0) mg/dL POC Glucose (mg/dL) 114 H (75-99) mg/dL Iron 21 L (50-170) ug/dL Iron Saturation 7.24 L (12.00-45.00) 12/18/18 12/18/1812/19/19 Range/Units 16:33 21:27 06:52 Haptoglobin (31.2-198.0) mg/dL POC Glucose (mg/dL) 168 H 174 H 156 H (75-99) mg/dL Iron (50-170) ug/dL Iron Saturation (12.00-45.00) Assessment and Plan Assessment: 1. Symptomatic hypoglycemia: Now resolved. Metformin and glipizide on hold. Continue with sliding scale coverage. She is currently off of the D5 W fluids. Reporting poor appetite. 2. Hypokalemia: Potassium 2.5 on admission now normalized after replacement. 3. Hypocalcemia: Patient did receive supplement. Calcium 5.9 at admission now 8.3. Corrected calcium 9.2. PTH level within normal range 4. Anemia: Likely due to iron deficiency anemia. Patient evaluated by GI service. Stool for occult blood is negative. Iron level low at 21. Start ferrous sulfate 325 mg twice a day. B12 level and folate level within normal range. Continue with the Protonix. Patient had recent EGD November 2018 showing mild gastritis and small hiatal hernia. 5. Hemorrhagic Bilateral renal cysts: Evaluated by urology. [place] that these were low risk for any malignancy. No intervention needed. And per urology cysts were not contributing to patient's symptoms. 6. Abdominal pain: Complaining of bloating and epigastric discomfort. Patient now having diarrhea. Unable to have MRI of the abdomen yesterday due to body habitus. GI is aware. Patient currently on Bentyl. Worsening abdominal pain today. Will order computed tomography scan of the abdomen and pelvis also check stool for C. diff. 7. Diabetes mellitus2 8. Essential hypertension 9. History of obstructive sleep apnea 10. History of chronic atrial fibrillation anticoagulated with Eliquis 11. Vitamin D insufficiency: We'll place patient on calcium and vitamin D supplement 12. Moderate protein calorie malnutrition add Glucerna shakes GI prophylaxis Protonix and DVT prophylaxis Eliquis Continue PT OT Per physical therapy notes they're recommending home with home care at time of discharge. I performed an examination of the patient and discussed their management with the physician Quality Control Supervisor. I have reviewed the Physician Quality Control Supervisor's notes and agree with the documented findings and plan of care
[2018-12-19] MEDS: IOPAMIDOL-300 CONTRAST 30 ML VIAL (ORAL USE) PO PRN ×2 (10:48→11:40)
[2018-12-19 12:11] LABS: Glucose,Whole Blood 124 mg/dL (75-99)
[2018-12-19 12:57] LABS: Basophils % (A) 0 %; Eosinophils # (A) 0.1 k/uL (0-0.7); Eosinophils % (A) 1 %; HCT 32.6 % (34.0-46.0); HGB 10.2 gm/dL (11.4-16.0); Lymphocytes # (A) 1.5 k/uL (1.0-4.8); Lymphocytes % (A) 18 %; MCH 29.8 pg (25.0-35.0); MCHC 31.3 g/dL (31.0-37.0); MCV 95.3 fL (80.0-100.0); Mean Platelet Volume 7.3; Monocytes # (A) 0.4 k/uL (0-1.0); Monocytes % (A) 5 %; Neutrophils # (A) 6.4 k/uL (1.3-7.7); Neutrophils % (A) 75 %; Platelet Count 226 k/uL (150-450); RBC 3.43 m/uL (3.80-5.40); RDW 13.5 % (11.5-15.5); WBC 8.5 k/uL (3.8-10.6)
[2018-12-19 13:08] LABS: ALT 24 U/L (9-52); AST 15 U/L (14-36); African American GFR (CKD) >90 (>60 ml/min/1.73 sqM); Alkaline Phosphatase 48 U/L (38-126); Anion Gap 5 mmol/L; Blood Urea Nitrogen 12 mg/dL (7-17); Calcium 8.5 mg/dL (8.4-10.2); Carbon Dioxide 36 mmol/L (22-30); Chloride 100 mmol/L (98-107); Glucose 130 mg/dL (74-99); Potassium 4.4 mmol/L (3.5-5.1); Sodium 141 mmol/L (137-145); Total Bilirubin 0.6 mg/dL (0.2-1.3); Total Protein 5.3 g/dL (6.3-8.2)
--- NOTE | 2018-12-19 14:03 | CT ---
EXAMINATION TYPE: CT abdomen pelvis w con DATE OF EXAM: 12/19/2018 COMPARISON: 11/30/2018 HISTORY: Abd pain CT DLP: 1956.1 mGycm CONTRAST: CT scan of the abdomen and pelvis is performed with Oral Contrast and with IV Contrast, patient injec david with 100 mL of Isovue 300. FINDINGS: LUNG BASES-: No visible nodule. No infiltrate. Mild basilar pleural thickening identified. LIVER/GB: Gallbladder surgically absent. Stable hepatic cysts are noted. Mild hepatic steatosis. N o space occupying hepatic lesion. Biliary tree is of normal caliber. PANCREAS: No inflammation. No distinct mass. SPLEEN: No splenic enlargement. No lesion seen. Chronic granulomas identified. ADRENALS: No nodule. No thickening. KIDNEYS/BLADDER: No hydronephrosis. No nephrolithiasis. No distinct renal mass. Urinary bladder g rossly unremarkable. BOWEL: Nonvisualization of the appendix. Sigmoidal wall thickening with increasing perisigmoid strand ing is suspicious for mild sigmoid diverticulitis. No evidence of perforation or abscess. Small amoun t of fluid noted. No evidence for pneumoperitoneum. GENITAL ORGANS: No gross abnormality. LYMPH NODES: No greater than 1cm abdominal or pelvic lymph nodes are appreciated. AORTA: No significant abnormality. OSSEOUS STRUCTURES: No significant abnormality is seen. OTHER: No significant additional abnormality is seen. IMPRESSION: 1. Salter reflect mild sigmoid diverticulitis. Correlate clinically. 2. Mild hepatic steatosis with the multiple hepatic cysts are stable.
[2018-12-19 15:43] VITALS: BMI 43.6
[2018-12-19 17:52] LABS: Glucose,Whole Blood 186 mg/dL (75-99)
[2018-12-19 21:09] LABS: Glucose,Whole Blood 142 mg/dL (75-99)
[2018-12-20] MEDS ORDERED: HYDROcodone/APAP 7.5-325MG 1 EACH TAB ONE (01:05)
[2018-12-20] MEDS: SODIUM CHLORIDE 0.9% 1,000 ML IV SCH (04:57)
[2018-12-20 07:09] LABS: Glucose,Whole Blood 109 mg/dL (75-99)
[2018-12-20] MEDS: INSULIN ASPART (NovoLOG) 100 UNIT/ML VIAL SQ SCH ×4 (08:08→22:12)
[2018-12-20] MEDS: DICYCLOMINE 20 MG TAB PO SCH ×3 (08:30→22:11)
[2018-12-20] MEDS: HYDROcodone/APAP 7.5-325MG 1 EACH TAB PO PRN ×2 (08:30→17:52)
[2018-12-20] MEDS: DILTIAZEM CD 180 MG CAP.ER.24H PO SCH (08:30)
[2018-12-20] MEDS: APIXABAN 2.5 MG TABLET PO SCH ×2 (08:31→22:11)
[2018-12-20] MEDS: LOSARTAN 50 MG TAB PO SCH (08:31)
[2018-12-20] MEDS: PANTOPRAZOLE 40 MG TABLET PO SCH ×2 (08:31→22:12)
[2018-12-20] MEDS: CALCIUM CARB-VIT D 500MG-200UN 1 EACH TAB PO SCH ×2 (08:31→17:27)
[2018-12-20] MEDS: FERROUS SULFATE 325 MG TAB PO SCH ×2 (08:31→22:12)
[2018-12-20] MEDS: SERTRALINE 25 MG TAB PO SCH (08:31)
[2018-12-20 10:04] LABS: Basophils % (A) 0 %; Eosinophils # (A) 0.1 k/uL (0-0.7); Eosinophils % (A) 1 %; HCT 33.8 % (34.0-46.0); HGB 10.4 gm/dL (11.4-16.0); Lymphocytes # (A) 1.1 k/uL (1.0-4.8); Lymphocytes % (A) 17 %; MCH 29.5 pg (25.0-35.0); MCHC 30.7 g/dL (31.0-37.0); Monocytes # (A) 0.3 k/uL (0-1.0); Monocytes % (A) 5 %; Neutrophils # (A) 4.9 k/uL (1.3-7.7); Neutrophils % (A) 76 %; Platelet Count 238 k/uL (150-450); RBC 3.53 m/uL (3.80-5.40); RDW 13.4 % (11.5-15.5); WBC 6.5 k/uL (3.8-10.6)
[2018-12-20 10:25] LABS: ALT 25 U/L (9-52); AST 14 U/L (14-36); African American GFR (CKD) >90 (>60 ml/min/1.73 sqM); Alkaline Phosphatase 46 U/L (38-126); Blood Urea Nitrogen 10 mg/dL (7-17); Calcium 8.3 mg/dL (8.4-10.2); Chloride 97 mmol/L (98-107); Glucose 209 mg/dL (74-99); Potassium 4.3 mmol/L (3.5-5.1); Sodium 141 mmol/L (137-145); Total Bilirubin 0.5 mg/dL (0.2-1.3); Total Protein 5.4 g/dL (6.3-8.2)
[2018-12-20 10:31] LABS: Anion Gap 7 mmol/L; Carbon Dioxide 37 mmol/L (22-30)
--- NOTE | 2018-12-20 11:20 | P.PN ---
Subjective Progress Note Date: 12/20/18 Principal diagnosis: Abdominal pain and anemia CT reported small segment of sigmoid diverticulitis. Hemoglobin 10.4. White count 6.5. Afebrile. Objective - Vital Signs Vital signs: Vital Signs Temp 97.6 F 12/20/18 04:50 Pulse 83 12/20/18 04:50 Resp 20 12/20/18 04:50 BP 153/93 12/20/18 04:50 Pulse Ox 99 12/20/18 04:50 Intake & Output 12/19/18 12/20/18 12/20/18 18:59 06:59 18:59 Intake Total 260 240 Balance 260 240 Weight 91.5 kg 93 kg Intake: Intake, IV Titration 160 Amount Sodium Chloride 0.9% 1, 160 000 ml @ 20 mls/hr IV . Q24H [facility] Rx#:[id number] Oral 100 240 Other: Voiding Method Toilet Diaper # Voids 3 3 # Bowel Movements 2 - Exam General appearance: The patient is alert, oriented, in no acute distress. HET: Head is normocephalic and atraumatic. Pupils are equal and reactive. Oropharynx is clear without lesions. Neck: Supple without lymphadenopathy. Trachea midline. Heart: S1 S2. Regular rate and rhythm. Lungs: No crackles or wheezes are heard. Abdomen: Soft, . Mild diffuse tenderness to the left abdomen with bowel sounds. No peritoneal signs. No palpable organomegaly or masses. Extremities: Normal skin color and turgor. No cyanosis, rash, ulceration, clubbing, or edema. Radial and pedal pulses are 2/4 bilaterally. Neurological: No focal deficits. Strength and sensation are grossly intact. - Labs CBC & Chem 7: 12/20/18 09:23 12/20/18 09:23 Labs: Abnormal Lab Results - Last 24 Hours (Table) 12/19/18 12/19/18 12/19/18 Range/Units 10:08 10:08 11:59 RBC 3.43 L (3.80-5.40) m/uL Hgb 10.2 L (11.4-16.0) gm/dL Hct 32.6 L (34.0-46.0) % MCHC (31.0-37.0) g/dL Chloride (98-107) mmol/L Carbon Dioxide 36 H (22-30) mmol/L Glucose 130 H (74-99) mg/dL POC Glucose (mg/dL) 124 H (75-99) mg/dL Calcium (8.4-10.2) mg/dL Total Protein 5.3 L (6.3-8.2) g/dL Albumin 3.0 L (3.5-5.0) g/dL 12/19/18 12/19/18 12/20/18 Range/Units 17:27 21:05 06:53 RBC (3.80-5.40) m/uL Hgb (11.4-16.0) gm/dL Hct (34.0-46.0) % MCHC (31.0-37.0) g/dL Chloride (98-107) mmol/L Carbon Dioxide (22-30) mmol/L Glucose (74-99) mg/dL POC Glucose (mg/dL) 186 H 142 H 109 H (75-99) mg/dL Calcium (8.4-10.2) mg/dL Total Protein (6.3-8.2) g/dL Albumin (3.5-5.0) g/dL 12/20/18 12/20/18 Range/Units 09:23 09:23 RBC 3.53 L (3.80-5.40) m/uL Hgb 10.4 L (11.4-16.0) gm/dL Hct 33.8 L (34.0-46.0) % MCHC 30.7 L (31.0-37.0) g/dL Chloride 97 L (98-107) mmol/L Carbon Dioxide 37 H (22-30) mmol/L Glucose 209 H (74-99) mg/dL POC Glucose (mg/dL) (75-99) mg/dL Calcium 8.3 L (8.4-10.2) mg/dL Total Protein 5.4 L (6.3-8.2) g/dL Albumin 3.0 L (3.5-5.0) g/dL Assessment and Plan (1) Sigmoid diverticulitis Current Visit: Yes Status: Acute Code(s): K57.32 - DVTRCLI OF LG INT W/O PERFORATION OR ABSCESS W/O BLEEDING SNOMED Code(s): 626389962 (2) Colon, diverticulosis Current Visit: Yes Status: Acute Code(s): K57.30 - DVRTCLOS OF LG INT W/O PERFORATION OR ABSCESS W/O BLEEDING SNOMED Code(s): 160137389 (3) Anemia, normocytic normochromic Current Visit: Yes Status: Acute Code(s): D64.9 - ANEMIA, UNSPECIFIED SNOMED Code(s): 12082134 (4) Abdominal pain Current Visit: No Status: Acute Code(s): R10.9 - UNSPECIFIED ABDOMINAL PAIN SNOMED Code(s): 78834952 Plan: 1. Cipro 500 mg twice daily x 7days. Flagyl 500 mg 3 times a day x 7 days. Low residue diet. Stool softeners and avoid constipation. Discharge per medic ine. Follow PCP is advised. Assessment and plan a care discussed with Dr. Cox
[2018-12-20] MEDS ORDERED: CIPROFLOXACIN HCL 500 MG TAB PO SCH (11:30)
[2018-12-20] MEDS ORDERED: metroNIDAZOLE 500 MG TAB PO SCH (11:30)
[2018-12-20 12:31] LABS: Glucose,Whole Blood 152 mg/dL (75-99)
--- NOTE | 2018-12-20 13:14 | P.PN ---
Subjective Progress Note Date: 12/20/18 88-year-old female with history of A. fib on Eliquis, obstructive sleep apnea, diabetes. Patient came into the ED today due to not feeling well, she has been feeling tired and progressively sick over the past 3 days. she reports that she felt bloated with some discomfort in her belly for which she took Mylanta after which she had one episodes of diarrhea. Then later on today she continued to feel weak and tired and shaky with some episodes of blurry vision. Denies any chest pain or trouble breathing she spent the day resting and sleeping in bed. However she became very sick toward the end of the day for which she called EMS who found her to be hypoglycemic with blood sugar of 35 she takes oral hypoglycemic agents. Patient was given some orange juice and food and started feeling better In the emergency department she was found to have electrolyte imbalance with hypokalemia hypocalcemia, labs also showed new onset anemia of 9.3. Patient is not aware of any GI bleeding she does not check her bowel movements. She is on Eliquis for A. fib. Otherwise she denies any fevers or chills denies any coughing or chest pain. Denies any nausea or vomiting. Patient had an MRI of the lower back yesterday showed degenerative spine disease, also found an incidental finding of right kidney cyst possibly hemorrhagic Patient was recently hospitalized for cellulitis treated with Keflex. She was also found at that time to have diverticulosis on a CAT scan of the abdomen along with chronic hepatic cyst. EGD was performed at that time showed gastritis. Patient does take a lot of pain medications for her chronic low back pain includes NSAIDs. Patient normally ambulates using a walker she had a recent fall outside in the bushes where she scraped her leg and of left cellulitis for which she was treated for last admission. No further falls after that episode she continues to use the walker to ambulate. She uses a CPAP machine for obstructive sleep apnea. 12/18/2018 patient was covered by the [facility] physicians this weekend. She still reporting abdominal pain mostly in the epigastric area. She still feels weak and shaky. Patient is scheduled for an MRI of the abdomen ordered by GI service. It has been 2 days since her last bowel movement. GI service did place her on Protonix and Bentyl. Blood sugar this morning is 136. Patient had EGD completed on 12/04/2018 revealing mild gastritis and small hiatal hernia. Hypoglycemia has not resolved. She is currently on sliding scale coverage. Still reporting a decrease in appetite. 12/19/2018 patient still complaining of abdominal pain. She reports that her pain had been doing better initially when the new medicine was started. However now she is complaining again of epigastric discomfort. Also reporting that her stomach is bigger than it usually is. She is now having loose stools. Stool for C. diff has been ordered and a computed tomography scan of the abdomen and pelvis with oral and IV contrast have been ordered. Patient also complaining of lower back pain and bilateral hip pain. Patient does usually have pain in the back and hip area. On 12/20/2018 patient is alert and oriented 3 resting comfortably in bed. Patient does report some improvement with abdominal pain. Patient had CT of abdomen showing cell to reflect mild sigmoid diverticulitis mild hepatic steatosis with the multiple hepatic cysts are stable. Antibiotics has been started for GI services. Patient denies chest pain or shortness of breath. Patient denies nausea vomiting or diarrhea. Patient denies any urinary burning or frequency. heart rate has improved Objective - Vital Signs Vital signs: Vital Signs Temp 97.6 F 12/20/18 04:50 Pulse 83 12/20/18 04:50 Resp 20 12/20/18 04:50 BP 153/93 12/20/18 04:50 Pulse Ox 99 12/20/18 04:50 Intake & Output 12/19/18 12/20/18 12/20/18 18:59 06:59 18:59 Intake Total 260 240 Balance 260 240 Weight 91.5 kg 93 kg Intake: Intake, IV Titration 160 Amount Sodium Chloride 0.9% 1, 160 000 ml @ 20 mls/hr IV . Q24H [facility] Rx#:[id number] Oral 100 240 Other: Voiding Method Toilet Diaper # Voids 3 3 # Bowel Movements 2 - Exam Head normocephalic Neck supple Lungs clear to auscultation bilaterally no wheezing or crackles Heart regular rate and rhythm S1-S2, no rub or gallop Abdomen is soft epigastric tenderness distended positive bowel sounds no hepatosplenomegaly Extremities no edema Neuro alert and orientated to 3 Muscle skeletal exam tenderness to palpation of the lumbar spine and sacral spine. No rashes or lesions noted - Labs CBC & Chem 7: 12/20/18 09:23 12/20/18 09:23 Labs: Abnormal Lab Results - Last 24 Hours (Table) 12/19/18 12/19/18 12/20/18 Range/Units 17:27 21:05 06:53 RBC (3.80-5.40) m/uL Hgb (11.4-16.0) gm/dL Hct (34.0-46.0) % MCHC (31.0-37.0) g/dL Chloride (98-107) mmol/L Carbon Dioxide (22-30) mmol/L Glucose (74-99) mg/dL POC Glucose (mg/dL) 186 H 142 H 109 H (75-99) mg/dL Calcium (8.4-10.2) mg/dL Total Protein (6.3-8.2) g/dL Albumin (3.5-5.0) g/dL 12/20/18 12/20/18 12/20/18 Range/Units 09:23 09:23 12:28 RBC 3.53 L (3.80-5.40) m/uL Hgb 10.4 L (11.4-16.0) gm/dL Hct 33.8 L (34.0-46.0) % MCHC 30.7 L (31.0-37.0) g/dL Chloride 97 L (98-107) mmol/L Carbon Dioxide 37 H (22-30) mmol/L Glucose 209 H (74-99) mg/dL POC Glucose (mg/dL) 152 H (75-99) mg/dL Calcium 8.3 L (8.4-10.2) mg/dL Total Protein 5.4 L (6.3-8.2) g/dL Albumin 3.0 L (3.5-5.0) g/dL Assessment and Plan Assessment: 1. Symptomatic hypoglycemia: Now resolved. Metformin and glipizide on hold. Continue with sliding scale coverage. She is currently off of the D5 W fluids. Reporting poor appetite. 2. Hypokalemia: Potassium 2.5 on admission now normalized after replacement. 3. Hypocalcemia: Patient did receive supplement. Calcium 5.9 at admission now 8.3. Corrected calcium 9.2. PTH level within normal range 4. Anemia: Likely due to iron deficiency anemia. Patient evaluated by GI service. Stool for occult blood is negative. Iron level low at 21. Start fe rrous sulfate 325 mg twice a day. B12 level and folate level within normal range. Continue with the Protonix. Patient had recent EGD November 2018 showing mild gastritis and small hiatal hernia. 5. Hemorrhagic Bilateral renal cysts: Evaluated by urology. [place] that these were low risk for any malignancy. No intervention needed. And per urology cysts were not contributing to patient's symptoms. 6. Abdominal pain related to mild sigmoid diverticulitis: Complaining of bloating and epigastric discomfort. Patient now having diarrhea. Unable to have MRI of the abdomen yesterday due to body habitus. GI is aware. Patient currently on Bentyl. Worsening abdominal pain today. CT of abdomen and pelvis completed showing felt to reflect mild sigmoid diverticulitis. Correlate clinically. Mild hepatic steatosis with multiple hepatic cysts are stable. Antibiotics per GI services. 7. Diabetes mellitus2 8. Essential hypertension 9. History of obstructive sleep apnea 10. History of chronic atrial fibrillation anticoagulated with Eliquis 11. Vitamin D insufficiency: We'll place patient on calcium and vitamin D supplement 12. Moderate protein calorie malnutrition add Sindy suarezkes GI prophylaxis Protonix and DVT prophylaxis Eliquis Continue PT OT Per physical therapy notes they're recommending home with home care at time of discharge.
[2018-12-20 17:05] LABS: Glucose,Whole Blood 119 mg/dL (75-99)
[2018-12-20] MEDS: metroNIDAZOLE-NS PMX 500 MG in SALINE 1 100ML.BAG IVPB SCH (17:27)
[2018-12-20 20:21] LABS: Glucose,Whole Blood 180 mg/dL (75-99)
[2018-12-21] MEDS: SODIUM CHLORIDE 0.9% 1,000 ML IV SCH ×2 (00:51→20:13)
[2018-12-21] MEDS: metroNIDAZOLE-NS PMX 500 MG in SALINE 1 100ML.BAG IVPB SCH ×3 (00:52→15:41)
[2018-12-21] MEDS: HYDROcodone/APAP 7.5-325MG 1 EACH TAB PO PRN ×2 (02:19→07:20)
[2018-12-21] MEDS: DICYCLOMINE 20 MG TAB PO SCH ×3 (07:24→20:12)
[2018-12-21] MEDS: PANTOPRAZOLE 40 MG TABLET PO SCH ×2 (07:24→20:12)
[2018-12-21] MEDS: LOSARTAN 50 MG TAB PO SCH (07:24)
[2018-12-21] MEDS: CALCIUM CARB-VIT D 500MG-200UN 1 EACH TAB PO SCH ×2 (07:24→17:12)
[2018-12-21] MEDS: FERROUS SULFATE 325 MG TAB PO SCH ×2 (07:24→20:12)
[2018-12-21] MEDS: SERTRALINE 25 MG TAB PO SCH (07:24)
[2018-12-21] MEDS: APIXABAN 2.5 MG TABLET PO SCH ×2 (07:24→20:12)
[2018-12-21 07:25] LABS: Glucose,Whole Blood 120 mg/dL (75-99)
[2018-12-21] MEDS: LEVOFLOXACIN 500MG-D5W PMX 500 MG in DEXTROSE/WATER 1 100ML.BAG IVPB SCH (07:25)
[2018-12-21] MEDS: DILTIAZEM CD 180 MG CAP.ER.24H PO SCH (07:28)
[2018-12-21] MEDS: INSULIN ASPART (NovoLOG) 100 UNIT/ML VIAL SQ SCH ×4 (07:28→21:54)
[2018-12-21 11:13] LABS: Basophils % (A) 0 %; Eosinophils # (A) 0.1 k/uL (0-0.7); Eosinophils % (A) 1 %; HCT 34.1 % (34.0-46.0); HGB 10.4 gm/dL (11.4-16.0); Hypochromasia Slight; Lymphocytes # (A) 1.3 k/uL (1.0-4.8); Lymphocytes % (A) 18 %; MCH 29.8 pg (25.0-35.0); MCHC 30.6 g/dL (31.0-37.0); MCV 97.2 fL (80.0-100.0); Mean Platelet Volume 6.8; Monocytes # (A) 0.4 k/uL (0-1.0); Monocytes % (A) 6 %; Neutrophils % (A) 74 %; Platelet Count 244 k/uL (150-450); RDW 13.3 % (11.5-15.5); WBC 6.8 k/uL (3.8-10.6)
[2018-12-21 11:16] LABS: ALT 24 U/L (9-52); AST 15 U/L (14-36); African American GFR (CKD) >90 (>60 ml/min/1.73 sqM); Alkaline Phosphatase 45 U/L (38-126); Anion Gap 5 mmol/L; Blood Urea Nitrogen 12 mg/dL (7-17); Calcium 8.5 mg/dL (8.4-10.2); Carbon Dioxide 37 mmol/L (22-30); Chloride 98 mmol/L (98-107); Glucose 236 mg/dL (74-99); Potassium 4.2 mmol/L (3.5-5.1); Sodium 140 mmol/L (137-145); Total Bilirubin 0.4 mg/dL (0.2-1.3); Total Protein 5.4 g/dL (6.3-8.2)
--- NOTE | 2018-12-21 12:24 | P.PN ---
Subjective Progress Note Date: 12/21/18 88-year-old female with history of A. fib on Eliquis, obstructive sleep apnea, diabetes. Patient came into the ED today due to not feeling well, she has been feeling tired and progressively sick over the past 3 days. she reports that she felt bloated with some discomfort in her belly for which she took Mylanta after which she had one episodes of diarrhea. Then later on today she continued to feel wea k and tired and shaky with some episodes of blurry vision. Denies any chest pain or trouble breathing she spent the day resting and sleeping in bed. However she became very sick toward the end of the day for which she called EMS who found her to be hypoglycemic with blood sugar of 35 she takes oral hypoglycemic agents. Patient was given some orange juice and food and started feeling better In the emergency department she was found to have electrolyte imbalance with hypokalemia hypocalcemia, labs also showed new onset anemia of 9.3. Patient is not aware of any GI bleeding she does not check her bowel movements. She is on Eliquis for A. fib. Otherwise she denies any fevers or chills denies any coughing or chest pain. Denies any nausea or vomiting. Patient had an MRI of the lower back yesterday showed degenerative spine disease, also found an incidental finding of right kidney cyst possibly hemorrhagic Patient was recently hospitalized for cellulitis treated with Keflex. She was a lso found at that time to have diverticulosis on a CAT scan of the abdomen along with chronic hepatic cyst. EGD was performed at that time showed gastritis. Patient does take a lot of pain medications for her chronic low back pain includes NSAIDs. Patient normally ambulates using a walker she had a recent fall outside in the bushes where she scraped her leg and of left cellulitis for which she was treated for last admission. No further falls after that episode she continues to use the walker to ambulate. She uses a CPAP machine for obstructive sleep apnea. 12/18/2018 patient was covered by the [facility] physicians this weekend. She still reporting abdominal pain mostly in the epigastric area. She still feels weak and shaky. Patient is scheduled for an MRI of the abdomen ordered by GI service. It has been 2 days since her last bowel movement. GI service did place her on Protonix and Bentyl. Blood sugar this morning is 136. Patient had EGD completed on 12/04/2018 revealing mild gastritis and small hiatal hernia. Hypoglycemia has not resolved. She is currently on sliding scale coverage. Still reporting a decrease in appetite. 12/19/2018 patient still complaining of abdominal pain. She reports that her pain had been doing better initially when the new medicine was started. However now she is complaining again of epigastric discomfort. Also reporting that her stomach is bigger than it usually is. She is now having loose stools. Stool for C. diff has been ordered and a computed tomography scan of the abdomen and pelvis with oral and IV contrast have been ordered. Patient also complaining of lower back pain and bilateral hip pain. Patient does usually have pain in the back and hip area. On 12/20/2018 patient is alert and oriented 3 resting comfortably in bed. Patient does report some improvement with abdominal pain. Patient had CT of abdomen showing cell to reflect mild sigmoid diverticulitis mild hepatic steatosis with the multiple hepatic cysts are stable. Antibiotics has been started for GI services. Patient denies chest pain or shortness of breath. Patient denies nausea vomiting or diarrhea. Patient denies any urinary burning or frequency. heart rate has improved 12/21/2018 patient reported no abdominal pain this morning. She was found to have diverticulitis and is currently on Levaquin and Flagyl. Patient still reporting liquidy stools. Discussed with nursing staff to get stool sample. Patient also still complaining that stomach is more bloated than her normal. Denies any chest pain or shortness of breath. Denies any difficulty urinating. Objective - Vital Signs Vital signs: Vital Signs Temp 97.5 F L 12/21/18 06:16 Pulse 96 12/21/18 06:16 Resp 18 12/21/18 06:16 BP 129/74 12/21/18 06:16 Pulse Ox 98 12/21/18 06:16 Intake & Output 12/20/18 12/21/18 12/21/18 18:59 06:59 18:59 Intake Total 720 260 Balance 720 260 Weight 90.5 kg Intake: Intake, IV Titration 260 Amount Sodium Chloride 0.9% 1, 160 000 ml @ 20 mls/hr IV . Q24H [facility] Rx#:[id number] metroNIDAZOLE-NS PMX 500 100 mg In Saline 1 100ml.bag @ 100 mls/hr IVPB Q8HR [facility] Rx#:[id number] Oral 720 Other: Voiding Method Toilet Diaper # Voids 2 1 # Bowel Movements 1 - Exam Head normocephalic Neck supple Lungs clear to auscultation bilaterally no wheezing or crackles Heart regular rate and rhythm S1-S2, no rub or gallop Abdomen is soft nontender distended positive bowel sounds no hepatosplenomegaly Extremities no edema Neuro alert and orientated to 3 - Labs CBC & Chem 7: 12/21/18 10:28 12/21/18 10:28 Labs: Abnormal Lab Results - Last 24 Hours (Table) 12/20/18 12/20/18 12/20/18 Range/Units 12:28 16:58 20:19 RBC (3.80-5.40) m/uL Hgb (11.4-16.0) gm/dL MCHC (31.0-37.0) g/dL Carbon Dioxide (22-30) mmol/L Glucose (74-99) mg/dL POC Glucose (mg/dL) 152 H 119 H 180 H (75-99) mg/dL Total Protein (6.3-8.2) g/dL Albumin (3.5-5.0) g/dL 12/21/18 12/21/18 12/21/18 Range/Units 07:22 10:28 10:28 RBC 3.50 L (3.80-5.40) m/uL Hgb 10.4 L (11.4-16.0) gm/dL MCHC 30.6 L (31.0-37.0) g/dL Carbon Dioxide 37 H (22-30) mmol/L Glucose 236 H (74-99) mg/dL POC Glucose (mg/dL) 120 H (75-99) mg/dL Total Protein 5.4 L (6.3-8.2) g/dL Albumin 3.0 L (3.5-5.0) g/dL Assessment and Plan Assessment: 1. Symptomatic hypoglycemia: Now resolved. Metformin and glipizide on hold. Continue with sliding scale coverage. She is currently off of the D5 W fluids. Likely secondary to poor appetite which now has shown improvement. 2. Hypokalemia: Potassium 2.5 on admission now normalized after replacement. 3. Hypocalcemia: Patient did receive supplement. Calcium 5.9 at admission now 8.3. Corrected calcium 9.2. PTH level within normal range 4. Anemia: Likely due to iron deficiency anemia. Patient evaluated by GI service. Stool for occult blood is negative. Iron level low at 21. Start ferrous sulfate 325 mg twice a day. B12 level and folate level within normal range. Continue with the Protonix. Patient had recent EGD November 2018 showing mild gastritis and small hiatal hernia. 5. Hemorrhagic Bilateral renal cysts: Evaluated by urology. [place] that these were low risk for any malignancy. No intervention needed. And per urology cysts were not contributing to patient's symptoms. 6. Abdominal pain: Secondary to mild sigmoid diverticulitis which was noted on computed tomography scan. Continue with the Levaquin and Flagyl. GI services recommending Cipro 500 twice a day for 7 days and Flagyl 500mg 3 times a day for 7 days at discharge. Patient again complains of diarrhea. Check stool for C. diff. Unable to have MRI of the abdomen yesterday due to body habitus. GI is aware. Patient currently on Bentyl. 7. Diabetes mellitus2 8. Essential hypertension 9. History of obstructive sleep apnea 10. History of chronic atrial fibrillation anticoagulated with Eliquis 11. Vitamin D insufficiency: We'll place patient on calcium and vitamin D supplement 12. Moderate protein calorie malnutrition add Glucerna shakes GI prophylaxis Protonix and DVT prophylaxis Eliquis Continue PT OT Per physical therapy notes they're recommending home with home care at time of discharge. Plan Check stool for C. diff Plan for discharge tomorrow I performed an examination of the patient and discussed their management with the physician Typing Secretary. I have reviewed the Physician Typing Secretary's notes and agree with the documented findings and plan of care
[2018-12-21 13:22] LABS: Glucose,Whole Blood 113 mg/dL (75-99)
[2018-12-21 16:53] LABS: Glucose,Whole Blood 176 mg/dL (75-99)
[2018-12-21 20:44] LABS: Glucose,Whole Blood 191 mg/dL (75-99)
[2018-12-22] MEDS: metroNIDAZOLE-NS PMX 500 MG in SALINE 1 100ML.BAG IVPB SCH ×2 (00:28→09:28)
[2018-12-22] MEDS: HYDROcodone/APAP 7.5-325MG 1 EACH TAB PO PRN ×2 (01:51→09:27)
[2018-12-22 06:46] VITALS: RESP 16; TEMP 97.8
[2018-12-22 07:20] LABS: Glucose,Whole Blood 148 mg/dL (75-99)
[2018-12-22] MEDS: DILTIAZEM CD 180 MG CAP.ER.24H PO SCH (09:27)
[2018-12-22] MEDS: LOSARTAN 50 MG TAB PO SCH (09:28)
[2018-12-22] MEDS: APIXABAN 2.5 MG TABLET PO SCH (09:28)
[2018-12-22] MEDS: FERROUS SULFATE 325 MG TAB PO SCH (09:28)
[2018-12-22] MEDS: PANTOPRAZOLE 40 MG TABLET PO SCH (09:28)
[2018-12-22] MEDS: CALCIUM CARB-VIT D 500MG-200UN 1 EACH TAB PO SCH (09:28)
[2018-12-22] MEDS: SERTRALINE 25 MG TAB PO SCH (09:28)
[2018-12-22] MEDS: DICYCLOMINE 20 MG TAB PO SCH (09:28)
[2018-12-22] MEDS: INSULIN ASPART (NovoLOG) 100 UNIT/ML VIAL SQ SCH ×2 (09:29→13:20)
[2018-12-22] MEDS: LEVOFLOXACIN 500MG-D5W PMX 500 MG in DEXTROSE/WATER 1 100ML.BAG IVPB SCH (10:39)
[2018-12-22 11:22] LABS: Basophils % (A) 0 %; Eosinophils # (A) 0.1 k/uL (0-0.7); Eosinophils % (A) 1 %; HCT 34.8 % (34.0-46.0); HGB 10.7 gm/dL (11.4-16.0); Hypochromasia Slight; Lymphocytes # (A) 1.4 k/uL (1.0-4.8); Lymphocytes % (A) 19 %; MCH 29.7 pg (25.0-35.0); MCHC 30.7 g/dL (31.0-37.0); MCV 96.6 fL (80.0-100.0); Mean Platelet Volume 6.7; Monocytes # (A) 0.3 k/uL (0-1.0); Monocytes % (A) 5 %; Neutrophils # (A) 5.6 k/uL (1.3-7.7); Neutrophils % (A) 74 %; Platelet Count 239 k/uL (150-450); RBC 3.61 m/uL (3.80-5.40); RDW 13.4 % (11.5-15.5); WBC 7.5 k/uL (3.8-10.6)
[2018-12-22 11:29] LABS: ALT 17 U/L (9-52); AST 16 U/L (14-36); African American GFR (CKD) >90 (>60 ml/min/1.73 sqM); Albumin 3.4 g/dL (3.5-5.0); Alkaline Phosphatase 44 U/L (38-126); Anion Gap 5 mmol/L; Blood Urea Nitrogen 10 mg/dL (7-17); Calcium 8.9 mg/dL (8.4-10.2); Carbon Dioxide 39 mmol/L (22-30); Chloride 97 mmol/L (98-107); Glucose 158 mg/dL (74-99); Potassium 4.1 mmol/L (3.5-5.1); Sodium 141 mmol/L (137-145); Total Bilirubin 0.4 mg/dL (0.2-1.3); Total Protein 5.8 g/dL (6.3-8.2)
[2018-12-22 11:53] LABS: Glucose,Whole Blood 129 mg/dL (75-99)
--- NOTE | 2018-12-22 13:33 | P.DS ---
Providers Date of admission: 12/15/18 23:15 Expected date of discharge: 12/22/18 Attending physician: Kareem Issa Consults: 12/16/18 00:17 Consult Physician Routine Consulting Provider: Armani Gamez Consult Reason/Comments: hemorrhagic cyst over right kidney , see MRI 12/14 Do you want consulting provider notified?: Yes, Notify in am Primary care physician: Kareem [facility] Course: Discharge diagnosis 1. Symptomatic hypoglycemia: Now resolved. Metformin and glipizide on hold. Continue with sliding scale coverage. She is currently off of the D5 W fluids. Likely secondary to poor appetite which now has shown improvement. 2. Hypokalemia: Potassium 2.5 on admission now normalized after replacement. 3. Hypocalcemia: Patient did receive supplement. Calcium 5.9 at admission now 8.3. Corrected calcium 9.2. PTH level within normal range 4. Anemia: Likely due to iron deficiency anemia. Patient evaluated by GI service. Stool for occult blood is negative. Iron level low at 21. Start ferrous sulfate 325 mg twice a day. B12 level and folate level within normal range. Continue with the Protonix. Patient had recent EGD November 2018 showing mild gastritis and small hiatal hernia. 5. Hemorrhagic Bilateral renal cysts: Evaluated by urology. [place] that these were low risk for any malignancy. No intervention needed. And per urology cysts were not contributing to patient's symptoms. 6. Abdominal pain: Secondary to mild sigmoid diverticulitis which was noted on computed tomography scan. Continue with the Levaquin and Flagyl. GI services recommending Cipro 500 twice a day for 7 days and Flagyl 500mg 3 times a day for 7 days at discharge. Patient again complains of diarrhea. Check stool for C. diff. Unable to have MRI of the abdomen yesterday due to body habitus. GI is aware. Patient currently on Bentyl. 7. Diabetes mellitus2 8. Essential hypertension 9. History of obstructive sleep apnea 10. History of chronic atrial fibrillation anticoagulated with Eliquis 11. Vitamin D insufficiency: We'll place patient on calcium and vitamin D supplement 12. Moderate protein calorie malnutrition [facility] course Patient came into the ED today due to not feeling well, she has been feeling tired and progressively sick over the past 3 days. she reports that she felt bloated with some discomfort in her belly for which she took Mylanta after which she had one episodes of diarrhea. Then later on today she continued to feel weak and tired and shaky with some episodes of blurry vision. Denies any chest pain or trouble breathing she spent the day resting and sleeping in bed. However she became very sick toward the end of the day for which she called EMS who found her to be hypoglycemic with blood sugar of 35 she takes oral hypoglycemic agents. Patient was given some orange juice and food and started feeling better In the emergency department she was found to have electrolyte imbalance with hypokalemia hypocalcemia, labs also showed new onset anemia of 9.3. Patient is not aware of any GI bleeding she does not check her bowel movements. She is on Eliquis for A. fib. Otherwise she denies any fevers or chills denies any coughing or chest pain. Denies any nausea or vomiting. Patient had an MRI of the lower back yesterday showed degenerative spine disease, also found an incidental finding of right kidney cyst possibly hemorrhagic Patient was recently hospitalized for cellulitis treated with Keflex. She was also found at that time to have diverticulosis on a CAT scan of the abdomen along with chronic hepatic cyst. EGD was performed at that time showed gastritis. Patient does take a lot of pain medications for her chronic low back pain includes NSAIDs. Patient normally ambulates using a walker she had a recent fall outside in the bushes where she scraped her leg and of left cellulitis for which she was treated for last admission. No further falls after that episode she continues to use the walker to ambulate. She uses a CPAP machine for obstructive sleep apnea. 12/18/2018 patient was covered by the [facility] physicians this weekend. She still reporting abdominal pain mostly in the epigastric area. She still feels weak and shaky. Patient is scheduled for an MRI of the abdomen ordered by GI service. It has been 2 days since her last bowel movement. GI service did richard ce her on Protonix and Bentyl. Blood sugar this morning is 136. Patient had EGD completed on 12/04/2018 revealing mild gastritis and small hiatal hernia. Hypoglycemia has not resolved. She is currently on sliding scale coverage. Still reporting a decrease in appetite. 12/19/2018 patient still complaining of abdominal pain. She reports that her pain had been doing better initially when the new medicine was started. However now she is complaining again of epigastric discomfort. Also reporting that her stomach is bigger than it usually is. She is now having loose stools. Stool for C. diff has been ordered and a computed tomography scan of the abdomen and pelvis with oral and IV contrast have been ordered. Patient also complaining of lower back pain and bilateral hip pain. Patient does usually have pain in the back and hip area. On 12/20/2018 patient is alert and oriented 3 resting comfortably in bed. Patient does report some improvement with abdominal pain. Patient had CT of abdomen showing cell to reflect mild sigmoid diverticulitis mild hepatic steatosis with the multiple hepatic cysts are stable. Antibiotics has been started for GI services. Patient denies chest pain or shortness of breath. Patient denies nausea vomiting or diarrhea. Patient denies any urinary burning or frequency. heart rate has improved 12/21/2018 patient reported no abdominal pain this morning. She was found to have diverticulitis and is currently on Levaquin and Flagyl. Patient still reporting liquidy stools. Discussed with nursing staff to get stool sample. Patient also still complaining that stomach is more bloated than her normal. Denies any chest pain or shortness of breath. Denies any difficulty urinating. 12/22/2018 patient is medical stable for discharge. patient stool for C. diff was negative. Her bowel movements have become more soft, only had 1 stool yesterday. GI service had recommended Cipro and Flagyl for the diverticulitis for 7 more days. Patient's symptoms have shown improvement. She's been educated to avoid any seeds or nuts. Her blood sugars have stabilized. And will resume her metformin at time of discharge. Glipizide discontinued during this admission due to hypoglycemia on admission. Patient treated for an acute diverticulitis placed on Levaquin and Flagyl. Again she'll continue with the Cipro and Flagyl for 7 more days. She'll follow up with GI service the outpatient setting. She will also follow-up with urology regarding the hemorrhagic bilateral renal cysts in 1-2 weeks. Patient also started on vitamin D and calcium during this admission. Patient's symptoms have shown improvement. She was also started on ferrous sulfate for her iron deficiency anemia. Recommend checking CBC in 1 week. I performed an examination of the patient and discussed their management with the physician [employer]. I have reviewed the Physician [employer]'s notes and agree with the documented findings and plan of care Patient Condition at Discharge: Stable Plan - Discharge Summary Discharge Rx Participant: No New Discharge Prescriptions: New Dicyclomine [Bentyl] 20 mg PO TID #90 tab Ciprofloxacin HCl [Cipro] 500 mg PO Q12HR #14 tablet metroNIDAZOLE [Flagyl] 500 mg PO Q8HR #21 tab Ferrous Sulfate [Iron (65 MG Elemental)] 325 mg PO BID #60 tab Calcium Carb-Vit D 500Mg-200Un [Oscal 500+D] 1 each PO BID-W/MEALS #30 tab Continue Sertraline [Zoloft] 25 mg PO DAILY Apixaban [Eliquis] 2.5 mg PO BID Losartan/Hydrochlorothiazide [Hyzaar 100-25 Tablet] 1 tab PO DAILY Diltiazem Cd [Cardizem CD] 180 mg PO DAILY #30 cap.er.24h Pantoprazole Sodium [Protonix] 40 mg PO BID metFORMIN HCL 850 mg PO HS Dicyclomine [Bentyl] 10 mg PO TID 30 Days #90 cap HYDROcodone/APAP 7.5-325MG [Bandy 7.5-325] 1 tab PO BID Discontinued Cephalexin [Keflex] 500 mg PO Q8HR 7 Days #21 cap glipiZIDE [Glucotrol] 5 mg PO BID@1300,1800 Discharge Medication List Sertraline [Zoloft] 25 mg PO DAILY 10/18/15 [History] Apixaban [Eliquis] 2.5 mg PO BID 02/14/16 [History] Losartan/Hydrochlorothiazide [Hyzaar 100-25 Tablet] 1 tab PO DAILY 09/02/16 [History] Diltiazem Cd [Cardizem CD] 180 mg PO DAILY #30 cap.er.24h 07/24/18 [Rx] Pantoprazole Sodium [Protonix] 40 mg PO BID 09/14/18 [History] metFORMIN HCL 850 mg PO HS 11/03/18 [History] Dicyclomine [Bentyl] 10 mg PO TID 30 Days #90 cap 12/04/18 [Rx] HYDROcodone/APAP 7.5-325MG [Bandy 7.5-325] 1 tab PO BID 12/15/18 [History] Calcium Carb-Vit D 500Mg-200Un [Oscal 500+D] 1 each PO BID-W/MEALS #30 tab 12/22/18 [Rx] Ciprofloxacin HCl [Cipro] 500 mg PO Q12HR #14 tablet 12/22/18 [Rx] Dicyclomine [Bentyl] 20 mg PO TID #90 tab 12/22/18 [Rx] Ferrous Sulfate [Iron (65 MG Elemental)] 325 mg PO BID #60 tab 12/22/18 [Rx] metroNIDAZOLE [Flagyl] 500 mg PO Q8HR #21 tab 12/22/18 [Rx] Follow up Appointment(s)/Referral(s): Armani Gamez MD [STAFF PHYSICIAN] - 1 Week [facility], [NON-STAFF] - Altaf Cox MD [STAFF PHYSICIAN] - 1 Week Kareem Issa MD [Primary Care Provider] - 1 Week Ambulatory/Diagnostic Orders: Complete Blood Count w/diff [LAB.AMB] Time Frame: 1 Week, Location: None Selected Patient Instructions/Handouts: Diverticulosis (DC), Kidney Stones (DC), Chronic Abdominal Pain (ED) Activity/Diet/Wound Care/Special Instructions: Diet:diabetic, cardiac. Avoid seeds and nuts Activity: as tolerated Discharge Disposition: HOME WITH HOME HEALTH SERVICES
[2018-12-22 14:48] VITALS: BP 145/85; PULSE 94
[2018-12-23] MEDS ORDERED: LEVOFLOXACIN 500 MG TAB PO SCH (09:00)
== END 2018-12-22 15:33 | disposition home health service (06) | DRG 392 ==
LOC: EC 19:45 → 3SCARD 23:15 → 4MS4W 12-18 23:00
PROVIDERS: ADMIT Internal Medicine; ATTEND Internal Medicine
DX: K57.32 Diverticulitis of large intestine without perforation or abscess without bleeding (principal); E44.0 Moderate protein-calorie malnutrition; Z68.41 Body mass index [BMI] 40.0-44.9, adult; E11.649 Type 2 diabetes mellitus with hypoglycemia without coma; E87.6 Hypokalemia; G47.33 Obstructive sleep apnea (adult) (pediatric); D50.9 Iron deficiency anemia, unspecified; N28.1 Cyst of kidney, acquired; E55.9 Vitamin D deficiency, unspecified; I10 Essential (primary) hypertension; I48.2 Chronic atrial fibrillation; M54.5 Low back pain; G89.29 Other chronic pain; F41.9 Anxiety disorder, unspecified; K21.9 Gastro-esophageal reflux disease without esophagitis; E78.5 Hyperlipidemia, unspecified; E03.9 Hypothyroidism, unspecified; F32.9 Major depressive disorder, single episode, unspecified; I50.9 Heart failure, unspecified; M19.90 Unspecified osteoarthritis, unspecified site; I11.0 Hypertensive heart disease with heart failure; E66.9 Obesity, unspecified; M25.552 Pain in left hip; M25.551 Pain in right hip; K44.9 Diaphragmatic hernia without obstruction or gangrene; K29.70 Gastritis, unspecified, without bleeding; K76.0 Fatty (change of) liver, not elsewhere classified; K76.89 Other specified diseases of liver; N20.0 Calculus of kidney; Z96.659 Presence of unspecified artificial knee joint; T50.2X5A Adverse effect of carbonic-anhydrase inhibitors, benzothiadiazides and other diuretics, initial encounter; R00.0 Tachycardia, unspecified; Z79.899 Other long term (current) drug therapy; Z79.01 Long term (current) use of anticoagulants; Z99.89 Dependence on other enabling machines and devices; Z90.49 Acquired absence of other specified parts of digestive tract; Z90.710 Acquired absence of both cervix and uterus; Z79.84 Long term (current) use of oral hypoglycemic drugs; Z87.891 Personal history of nicotine dependence; Z98.42 Cataract extraction status, left eye; Z98.41 Cataract extraction status, right eye; Z88.6 Allergy status to analgesic agent; Z83.3 Family history of diabetes mellitus; Z82.49 Family history of ischemic heart disease and other diseases of the circulatory system; Z82.5 Family history of asthma and other chronic lower respiratory diseases
CPT/HCPCS: 36415; 71046; 74018; 74177; 80048; 80053; 81003; 82150; 82272; 82306; 82330; 82607; 82728; 82746; 83010; 83540; 83550; 83605; 83690; 83735; 83970; 84100; 84484; 85025; 85045; 85610; 85730; 87324; 93005; 96361; 96365; 96366; 96368; 99285

== ENCOUNTER 2018-12-24 17:32 | Emergency (ER) | payer MEDICARE, OTHER ==
[2018-12-24] MEDS ORDERED: SODIUM CHLORIDE 0.9% 1,000 ML IV STA (18:10)
--- NOTE | 2018-12-24 19:22 | ED ---
General Adult HPI - General Source: patient, EMS, RN notes reviewed, old records reviewed Mode of arrival: EMS Limitations: no limitations <Juan Ramirez - Last Filed: 12/24/18 22:43> <Lala Jensen - Last Filed: 12/26/18 07:21> - General Chief complaint: Abdominal Pain Stated complaint: weakness Time Seen by Provider: 12/24/18 18:01 - History of Present Illness Initial comments: 88-year-old female patient past history of type 2 diabetes, atrial fibrillation, anticoagulated on eliquis presents to ED with chief complaint of epigastric abdominal pain. Patient was recently admitted from 12/15-12/22 for abdominal pain and left leg abnormalities. Patient was also diagnosed approximately 5 days ago diverticulitis. Patient discharged with oral antibiotics. She reports that she has had pain since discharge. States that the pain has been worse in the last 2 days. Reports that she has nausea without emesis. Denies any other complaints. Denies any chest pain shortness of breath or diarrhea. Patient reports that she is on Flagyl and she missed her morning dose of Flagyl but she did take both pills at lunch. Denies other complaints. Systemic: Pt denies fatigue, fever/chills, rash. Pt denies weakness, night sweats, weight loss. Neuro: Pt denies headache, visual disturbances, syncope or pre-syncope. HEENT: Pt denies ocular discharge or irritation, otalgia, rhinorrhea, pharyngitis or notable lymphadenopathy. Cardiopulmonary: Pt denies chest pain, SOB, heart palpitations, dyspnea on exertion. Abdominal/GI: Pt denies n/v/d. : Pt denies dysuria, burning w/ urination, frequency/urgency. Denies new onset urinary or bowel incontinence. MSK: Pt denies myalgia, loss of strength or function in extremities. Neuro: Pt denies new onset weakness, paresthesias. (Juan Ramirez) - Related Data Home Medications Medication Instructions Recorded Confirmed Sertraline [Zoloft] 25 mg PO DAILY 10/18/15 12/24/18 Apixaban [Eliquis] 2.5 mg PO BID 02/14/16 12/24/18 Losartan/Hydrochlorothiazide 1 tab PO DAILY 09/02/16 12/24/18 [Hyzaar 100-25 Tablet] Pantoprazole Sodium [Protonix] 40 mg PO BID 09/14/18 12/24/18 metFORMIN HCL 850 mg PO HS 11/03/18 12/24/18 HYDROcodone/APAP 7.5-325MG [Mcdonald 1 tab PO BID 12/15/18 12/24/18 7.5-325] Calcium Carb-Vit D 500Mg-200Un 1 tab PO BID-W/MEALS 12/24/18 12/24/18 [Oscal 500+D] Previous Rx's Medication Instructions Recorded Diltiazem Cd [Cardizem CD] 180 mg PO DAILY #30 cap.er.24h 07/24/18 Dicyclomine [Bentyl] 10 mg PO TID 30 Days #90 cap 12/04/18 Ciprofloxacin HCl [Cipro] 500 mg PO Q12HR #14 tablet 12/22/18 Dicyclomine [Bentyl] 20 mg PO TID #90 tab 12/22/18 Ferrous Sulfate [Iron (65 MG 325 mg PO BID #60 tab 12/22/18 Elemental)] metroNIDAZOLE [Flagyl] 500 mg PO Q8HR #21 tab 12/22/18 Famotidine [Pepcid] 20 mg PO BID #20 tablet 12/24/18 Allergies Allergy/AdvReac Type Severity Reaction Status Date / Time aspirin AdvReac Dyspnea,Nausea/Vomiting,Dizzy,Tingling,Warm Verified 12/24/18 18:01 sensation Review of Systems ROS Other: All systems not noted in ROS Statement are negative. <Juan Ramirez - Last Filed: 12/24/18 22:43> ROS Other: All systems not noted in ROS Statement are negative. <Lala Jensen - Last Filed: 12/26/18 07:21> ROS Statement: Those systems with pertinent positive or pertinent negative responses have been documented in the HPI. Past Medical History Past Medical History: Atrial Fibrillation, Chest Pain / Angina, Heart Failure, Diabetes Mellitus, GERD/Reflux, Hyperlipidemia, Hypertension, Osteoarthritis (OA), Respiratory Disorder, Sleep Apnea/CPAP/BIPAP, Thyroid Disorder Additional Past Medical History / Comment(s): DDD WITH BACK PAIN, OCCASIONAL SWELLING IN FEET, USES C-PAP MACHINE. History of Any Multi-Drug Resistant Organisms: None Reported Past Surgical History: Cholecystectomy, Hysterectomy, Joint Replacement Additional Past Surgical History / Comment(s): EGD for gastric reflux. Excision of lipomas. bilateral cataracts, total knee., Pain clinic procedures. Past Anesthesia/Blood Transfusion Reactions: No Reported Reaction Past Psychological History: Anxiety, Depression Smoking Status: Former smoker Past Alcohol Use History: None Reported Past Drug Use History: None Reported - Past Family History Brother(s) Family Medical History: Congestive Heart Failure (CHF), COPD, Coronary Artery Disease (CAD), Diabetes Mellitus Daughter(s) Additional Family Medical History / Comment(s): One from MVA Son(s) Family Medical History: Diabetes Mellitus, Hyperlipidemia, Hypertension Sister(s) Family Medical History: Cancer Mother Family Medical History: Dementia Father Family Medical History: COPD Additional Family Medical History / Comment(s): EMPHYSEMA. <Juan Ramirez - Last Filed: 12/24/18 22:43> General Exam Limitations: no limitations <Juan Ramirez - Last Filed: 12/24/18 22:43> - General Exam Comments Initial Comments: Constitutional: NAD, AOX3, Pt has pleasant affect. HEENT: NC/AT, trachea midline, neck supple, no lymphadenopathy. Posterior pharynx non erythematous, without exudates. External ears appear normal, without discharge. Mucous membranes moist. Eyes PERRLA, EOM intact. There is no scleral icterus. No pallor noted. Cardiopulmonary: RRR, no murmurs, rubs or gallops, no JVD noted. Lungs CTAB in anterior and posterior nguyen. No peripheral edema. Abdominal exam: Abdomen soft and non-distended. Abdomen mildly tender to palpation in epigastric region. No other areas of abdominal tenderness, no guarding or rigidity no ecchymoses.. Bowel sounds active in LLQ. No hepatosplenomegaly. No ecchymosis Neuro: CN II-XII grossly intact. No nuchal rigidity. No raccon eyes, no eaton sign, no hemotympanum. No cervical spinal tenderness. MSK: No posterior calf tenderness bilaterally, homans sign negative bilaterally. Posterior tibialis and radial pulse +2 bilaterally. Sensation intact in upper and lower extremities. Full active ROM in upper and lower extremities, 5/5 stregnth. (Juan Ramirez) Course Vital Signs 12/24/18 12/24/18 12/24/18 17:42 19:23 21:36 Temperature 97 F L 97.4 F L Pulse Rate 90 103 H 88 Respiratory 18 16 16 Rate Blood Pressure 146/87 171/124 146/83 O2 Sat by Pulse 97 98 99 Oximetry 12/24/18 12/24/18 22:13 23:08 Temperature 97.4 F L Pulse Rate 100 100 Respiratory 18 18 Rate Blood Pressure 144/95 144/95 O2 Sat by Pulse 99 99 Oximetry Medical Decision Making - Lab Data Result diagrams: 12/24/18 19:10 12/24/18 19:10 - EKG Data -: EKG Interpreted by Me (and Dr Jensen. ) <Juan Ramirez - Last Filed: 12/24/18 22:43> - Lab Data Result diagrams: 12/24/18 19:10 12/24/18 19:10 <Lala Jensen - Last Filed: 12/26/18 07:21> - Medical Decision Making 88-year-old female patient past history of type 2 diabetes, atrial fibrillation, anticoagulated on eliquis presents to ED with chief complaint of epigastric abdominal pain. Patient was recently admitted from 12/15-12/22 for abdominal pain and left leg abnormalities. Patient was also diagnosed approximately 5 days ago diverticulitis. Patient discharged with oral antibiotics. She reports that she has had pain since discharge. States that the pain has been worse in the last 2 days. Reports that she has nausea without emesis. Denies any other complaints. Denies any chest pain shortness of breath or diarrhea. Patient reports that she is on Flagyl and she missed her morning dose of Flagyl but she did take both pills at lunch. Denies other complaints. Patient vital signs stable, afebrile. Physical exam displayed: Abdomen mildly tender to palpation in epigastric region. No other areas of abdominal tenderness, no guarding or rigidity no ecchymoses.. Laboratory investigations revealed non-impressive CBC, CMP.Coagulation studies within normal limits. Troponin negative. BNP 939. Lipase 52. UA displayed +[address] abdomen and pelvis displayed redemons trated acute sigmoid diverticulitis with relatively similar mild to moderate inflammation and edema. No abscess or free air. Trachea pleural effusion. Chronic dilated bile duct. Patient's symptoms are more consistent with gastritis picture than diverticulitis. Patient was discharged with Pepcid. Patient will continue to take ciprofloxacin and Flagyl for diverticulitis - as reccomended by GI during admission. 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 Patient will have strict return precautions. Case discussed with Dr. Jensen. (Juan Ramirez) I was available for consultation in the emergency department. The history and physical exam were done by the midlevel provider. I was consulted for this patient's care. I reviewed the case with the midlevel provider and based on their presentation of the patient, I agree with the assessment, medical decision making and plan of care as documented. Chart was dictated using [employer] dictation software. Attempts were made to correct any dictation errors however some typographical errors may persist. (Lala Jensen) - Lab Data Lab Results 12/24/18 12/24/18 12/24/18 Range/Units 19:10 19:10 19:10 WBC 10.1 (3.8-10.6) k/uL RBC 3.75 L (3.80-5.40) m/uL Hgb 11.6 (11.4-16.0) gm/dL Hct 34.8 (34.0-46.0) % MCV 92.8 (80.0-100.0) fL MCH 30.9 (25.0-35.0) pg MCHC 33.3 (31.0-37.0) g/dL RDW 14.6 (11.5-15.5) % Plt Count 251 (150-450) k/uL Neutrophils % 79 % Lymphocytes % 14 % Monocytes % 4 % Eosinophils % 1 % Basophils % 0 % Neutrophils # 8.0 H (1.3-7.7) k/uL Lymphocytes # 1.4 (1.0-4.8) k/uL Monocytes # 0.4 (0-1.0) k/uL Eosinophils # 0.1 (0-0.7) k/uL Basophils # 0.0 (0-0.2) k/uL PT (9.0-12.0) sec INR (<1.2) APTT (22.0-30.0) sec Sodium 140 (137-145) mmol/L Potassium 3.3 L (3.5-5.1) mmol/L Chloride 99 (98-107) mmol/L Carbon Dioxide 34 H (22-30) mmol/L Anion Gap 7 mmol/L BUN 7 (7-17) mg/dL Creatinine 0.51 L (0.52-1.04) mg/dL Est GFR (CKD-EPI)AfAm >90 (>60 ml/min/1.73 sqM) Est GFR (CKD-EPI)NonAf 88 (>60 ml/min/1.73 sqM) Glucose 126 H (74-99) mg/dL Plasma Lactic Acid Osorio 0.9 (0.7-2.0) mmol/L Calcium 8.8 (8.4-10.2) mg/dL Total Bilirubin 0.5 (0.2-1.3) mg/dL AST 32 (14-36) U/L ALT 29 (9-52) U/L Alkaline Phosphatase 51 (38-126) U/L Troponin I (0.000-0.034) ng/mL NT-Pro-B Natriuret Pep pg/mL Total Protein 5.8 L (6.3-8.2) g/dL Albumin 3.5 (3.5-5.0) g/dL Amylase 31 (30-110) U/L Lipase 52 (23-300) U/L Urine Color Urine Appearance (Clear) Urine pH (5.0-8.0) Ur Specific Devon (1.001-1.035) Urine Protein (Negative) Urine Glucose (UA) (Negative) Urine Ketones (Negative) Urine Blood (Negative) Urine Nitrite (Negative) Urine Bilirubin (Negative) Urine Urobilinogen (<2.0) mg/dL Ur Leukocyte Esterase (Negative) 12/24/18 12/24/18 12/24/18 Range/Units 19:10 19:10 19:10 WBC (3.8-10.6) k/uL RBC (3.80-5.40) m/uL Hgb (11.4-16.0) gm/dL Hct (34.0-46.0) % MCV (80.0-100.0) fL MCH (25.0-35.0) pg MCHC (31.0-37.0) g/dL RDW (11.5-15.5) % Plt Count (150-450) k/uL Neutrophils % % Lymphocytes % % Monocytes % % Eosinophils % % Basophils % % Neutrophils # (1.3-7.7) k/uL Lymphocytes # (1.0-4.8) k/uL Monocytes # (0-1.0) k/uL Eosinophils # (0-0.7) k/uL Basophils # (0-0.2) k/uL PT 11.1 (9.0-12.0) sec INR 1.0 (<1.2) APTT 24.6 (22.0-30.0) sec Sodium (137-145) mmol/L Potassium (3.5-5.1) mmol/L Chloride (98-107) mmol/L Carbon Dioxide (22-30) mmol/L Anion Gap mmol/L BUN (7-17) mg/dL Creatinine (0.52-1.04) mg/dL Est GFR (CKD-EPI)AfAm (>60 ml/min/1.73 sqM) Est GFR (CKD-EPI)NonAf (>60 ml/min/1.73 sqM) Glucose (74-99) mg/dL Plasma Lactic Acid Osorio (0.7-2.0) mmol/L Calcium (8.4-10.2) mg/dL Total Bilirubin (0.2-1.3) mg/dL AST (14-36) U/L ALT (9-52) U/L Alkaline Phosphatase (38-126) U/L Troponin I <0.012 (0.000-0.034) ng/mL NT-Pro-B Natriuret Pep 939 pg/mL Total Protein (6.3-8.2) g/dL Albumin (3.5-5.0) g/dL Amylase (30-110) U/L Lipase (23-300) U/L Urine Color Urine Appearance (Clear) Urine pH (5.0-8.0) Ur Specific Devon (1.001-1.035) Urine Protein (Negative) Urine Glucose (UA) (Negative) Urine Ketones (Negative) Urine Blood (Negative) Urine Nitrite (Negative) Urine Bilirubin (Negative) Urine Urobilinogen (<2.0) mg/dL Ur Leukocyte Esterase (Negative) 12/24/18 Range/Units 20:57 WBC (3.8-10.6) k/uL RBC (3.80-5.40) m/uL Hgb (11.4-16.0) gm/dL Hct (34.0-46.0) % MCV (80.0-100.0) fL MCH (25.0-35.0) pg MCHC (31.0-37.0) g/dL RDW (11.5-15.5) % Plt Count (150-450) k/uL Neutrophils % % Lymphocytes % % Monocytes % % Eosinophils % % Basophils % % Neutrophils # (1.3-7.7) k/uL Lymphocytes # (1.0-4.8) k/uL Monocytes # (0-1.0) k/uL Eosinophils # (0-0.7) k/uL Basophils # (0-0.2) k/uL PT (9.0-12.0) sec INR (<1.2) APTT (22.0-30.0) sec Sodium (137-145) mmol/L Potassium (3.5-5.1) mmol/L Chloride (98-107) mmol/L Carbon Dioxide (22-30) mmol/L Anion Gap mmol/L BUN (7-17) mg/dL Creatinine (0.52-1.04) mg/dL Est GFR (CKD-EPI)AfAm (>60 ml/min/1.73 sqM) Est GFR (CKD-EPI)NonAf (>60 ml/min/1.73 sqM) Glucose (74-99) mg/dL Plasma Lactic Acid Osorio (0.7-2.0) mmol/L Calcium (8.4-10.2) mg/dL Total Bilirubin (0.2-1.3) mg/dL AST (14-36) U/L ALT (9-52) U/L Alkaline Phosphatase (38-126) U/L Troponin I (0.000-0.034) ng/mL NT-Pro-B Natriuret Pep pg/mL Total Protein (6.3-8.2) g/dL Albumin (3.5-5.0) g/dL Amylase (30-110) U/L Lipase (23-300) U/L Urine Color Yellow Urine Appearance Clear (Clear) Urine pH 7.0 (5.0-8.0) Ur Specific Devon 1.050 H (1.001-1.035) Urine Protein Negative (Negative) Urine Glucose (UA) Negative (Negative) Urine Ketones 2+ H (Negative) Urine Blood Negative (Negative) Urine Nitrite Negative (Negative) Urine Bilirubin Negative (Negative) Urine Urobilinogen <2.0 (<2.0) mg/dL Ur Leukocyte Esterase Negative (Negative) - EKG Data EKG Comments: Ventricular rate 89, QRS 82, QT/QTc 392/476. Atrial fibrillation, normal EKG. Pt has history (Juan Ramirez) Disposition Is patient prescribed a controlled substance at d/c from ED?: No <Juan Ramirez - Last Filed: 12/24/18 22:43> <Lala Jensen - Last Filed: 12/26/18 07:21> Clinical Impression: Diverticulitis, Gastritis Disposition: HOME SELF-CARE Condition: Stable Instructions (If sedation given, give patient instructions): Diverticulitis (E D) Additional Instructions: Patient to adhere to previously discussed treatment plan and will take medication(s) as directed. Patient to follow up with PCP in 1-2 days. Patient to return to ED if symptoms do not improve. Continue to take flagyl and ciprofloxacin as directed. Begin taking pepcid for gastritis. Follow up with [facility] tomorrow. Return to ER immediately if condition worsens in anyway. Prescriptions: Famotidine [Pepcid] 20 mg PO BID #20 tablet Referrals: Kareem Issa MD [Primary Care Provider] - 1-2 days Dayana Patterson MD [STAFF PHYSICIAN] - 1-2 days
[2018-12-24 19:27] VITALS: TEMP 97.4
[2018-12-24 19:32] LABS: Basophils % (A) 0 %; Eosinophils # (A) 0.1 k/uL (0-0.7); Eosinophils % (A) 1 %; HCT 34.8 % (34.0-46.0); HGB 11.6 gm/dL (11.4-16.0); Lymphocytes # (A) 1.4 k/uL (1.0-4.8); Lymphocytes % (A) 14 %; MCH 30.9 pg (25.0-35.0); MCHC 33.3 g/dL (31.0-37.0); MCV 92.8 fL (80.0-100.0); Mean Platelet Volume 7.5; Monocytes # (A) 0.4 k/uL (0-1.0); Monocytes % (A) 4 %; Neutrophils % (A) 79 %; Platelet Count 251 k/uL (150-450); RBC 3.75 m/uL (3.80-5.40); RDW 14.6 % (11.5-15.5); WBC 10.1 k/uL (3.8-10.6)
[2018-12-24] MEDS ORDERED: MORPHINE SULFATE 4 MG/ML SYRINGE IV STA (19:35)
[2018-12-24] MEDS ORDERED: FAMOTIDINE 20 MG/2 ML VIAL IV STA (19:35)
[2018-12-24 19:38] LABS: Partial Thromboplastin Time 24.6 sec (22.0-30.0); Prothrombin Time 11.1 sec (9.0-12.0)
[2018-12-24 19:41] LABS: ALT 29 U/L (9-52); AST 32 U/L (14-36); African American GFR (CKD) >90 (>60 ml/min/1.73 sqM); Albumin 3.5 g/dL (3.5-5.0); Alkaline Phosphatase 51 U/L (38-126); Amylase 31 U/L (30-110); Anion Gap 7 mmol/L; Blood Urea Nitrogen 7 mg/dL (7-17); Calcium 8.8 mg/dL (8.4-10.2); Carbon Dioxide 34 mmol/L (22-30); Chloride 99 mmol/L (98-107); Glucose 126 mg/dL (74-99); Lipase 52 U/L (23-300); Potassium 3.3 mmol/L (3.5-5.1); Sodium 140 mmol/L (137-145); Total Bilirubin 0.5 mg/dL (0.2-1.3); Total Protein 5.8 g/dL (6.3-8.2)
--- NOTE | 2018-12-24 20:41 | CT ---
EXAMINATION TYPE: CT abdomen pelvis w con DATE OF EXAM: 12/24/2018 COMPARISON: 12/19/2018 HISTORY: 88-year-old female Weakness/abdomen pain. Hx adwoa sx TECHNIQUE: Contiguous axial scanning of the abdomen and pelvis following administration of 100 ml Iso sarwat 300 IV contrast. Delayed images through the kidneys and coronal/sagittal reconstructions perform ed. CT DLP: 1266.7 mGycm Automated exposure control for dose reduction was used. FINDINGS: Heart borderline to mildly enlarged without pericardial effusion. There is a trace right pleural effu emi with adjacent atelectasis. Borderline ectasia lower descending thoracic aorta 2.5 cm. Multiple hepatic cysts are redemonstrated, largest measuring 4.3 cm left liver lobe. Tiny calcified g ranulomas are present both within the liver and spleen. Similar dilatation of the bile duct at 1.2 cm. There is a diverticulum of the second portion of the d uodenum projecting to the pancreatic head region. Cholecystectomy clips. Adrenal glands, left kidney appear within normal limits. Fatty atrophy of the pancreas. Subcentimeter hypodensities within the right kidney too small for accurate CT characterization, likel y cyst. Punctate 3 mm nonobstructive right lower pole renal calculus. No dilated small bowel, free fluid, or free air. No mesenteric or retroperitoneal lymphadenopathy. Scattered colonic diverticulosis, greatest in the sigmoid colon. There is wall thickening and small t o moderate focal inflammatory fat stranding and edema along the mid to distal sigmoid. Bladder incompletely distended. Multiple pelvic phleboliths. Uterus surgically absent. Neither ovary clearly seen may be absent or small in this postmenopausal female. Trace cul-de-sac free fluid is dem onstrated. No pelvic lymph adenopathy seen. Bones: Moderate degenerative changes of the hips. Advanced degenerative disc disease and hypertrophic facet arthropathy throughout the visualized spine. IMPRESSION: 1. REDEMONSTRATED ACUTE SIGMOID DIVERTICULITIS WITH RELATIVELY SIMILAR MILD TO MODERATE INFLAMMATION AND TRACKING EDEMA. NO ABSCESS OR FREE AIR SEEN.. TRACE CUL-DE-SAC FREE FLUID REMAINS AND IS LIKELY R EACTIVE. 2. A TRACE RIGHT PLEURAL EFFUSION. 3. DILATED BILE DUCT TO 1.2 CM LIKELY CHRONIC IN THE PATIENT STATUS POST CHOLECYSTECTOMY. THIS CAN BE CONFIRMED WITH NORMAL ALKALINE PHOSPHATASE AND BILIRUBIN LEVELS.
[2018-12-24] MEDS ORDERED: AMOXIC-POT CLAV 875-125MG 1 EACH TAB PO STA (21:50)
[2018-12-24 22:02] LABS: Appearance,Urine Clear (Clear); Bilirubin,Urine Negative (Negative); Blood,Urine Negative (Negative); Color,Urine Yellow; Glucose,Urine (UA) Negative (Negative); Ketones,Urine 2+ (Negative); Leukocyte Esterase,Urine Negative (Negative); Nitrite,Urine Negative (Negative); Protein,Urine Negative (Negative); Urobilinogen,Urine <2.0 mg/dL (<2.0)
[2018-12-24 22:16] VITALS: BP 144/95; PULSE 100; RESP 18
== END 2018-12-25 00:15 | disposition home or self-care (01) ==
LOC: EC 17:32
DX: K57.92 Diverticulitis of intestine, part unspecified, without perforation or abscess without bleeding (principal); K29.70 Gastritis, unspecified, without bleeding; I48.91 Unspecified atrial fibrillation; K21.9 Gastro-esophageal reflux disease without esophagitis; E11.9 Type 2 diabetes mellitus without complications; G47.30 Sleep apnea, unspecified; I10 Essential (primary) hypertension; F32.9 Major depressive disorder, single episode, unspecified; Z87.891 Personal history of nicotine dependence; Z79.899 Other long term (current) drug therapy; Z79.01 Long term (current) use of anticoagulants; Z79.84 Long term (current) use of oral hypoglycemic drugs; Z79.891 Long term (current) use of opiate analgesic; Z88.8 Allergy status to other drugs, medicaments and biological substances; Z90.49 Acquired absence of other specified parts of digestive tract; Z96.653 Presence of artificial knee joint, bilateral; Z98.42 Cataract extraction status, left eye; Z98.41 Cataract extraction status, right eye; Z99.89 Dependence on other enabling machines and devices
CPT/HCPCS: 36415; 93005; 83880; 80053; 82150; 83605; 83690; 84484; 85025; 85610; 85730; 81003; 74177; 99285; 96374; 96375; 96361 ×4; J2270; Q9967

== ENCOUNTER 2019-03-06 17:31 | Inpatient (IN) | payer MEDICARE, OTHER ==
--- NOTE | 2019-03-06 18:12 | ED ---
Abdominal Pain HPI - General Chief Complaint: Abdominal Pain Stated Complaint: Infection Time Seen by Provider: 03/06/19 17:39 Source: patient, RN notes reviewed, old records reviewed Mode of arrival: wheelchair Limitations: no limitations - History of Present Illness Initial Comments: Patient is an 88 rolled female presents emergency department today with chief complaint of abdominal pain. She reports that she followed up with her primary care physician Dr. Issa. She had an outpatient computed tomography scan today and was told to come in for evaluation. Patient reports that she has been having diffuse abdominal pain. She does report a history of constipation in the past. She is on [place] for chronic back pain. Patient states that she's had no dysuria. She denies any vomiting. She reports that soon as she eats she does have worsening abdominal pain. Patient states that she's had a course of antibiotics unsure which antibiotic and finished this approximately 10 days ago for an abdominal infection. - Related Data Home Medications Medication Instructions Recorded Confirmed Apixaban [Eliquis] 2.5 mg PO BID 02/14/16 03/06/19 Losartan/Hydrochlorothiazide 1 tab PO DAILY 09/02/16 03/06/19 [Hyzaar 100-25 Tablet] Pantoprazole Sodium [Protonix] 40 mg PO BID 09/14/18 03/06/19 metFORMIN HCL 850 mg PO HS 11/03/18 03/06/19 HYDROcodone/APAP 7.5-325MG [[place] 1 tab PO Q8H PRN 12/15/18 03/06/19 7.5-325] Calcium Carbonate/Vitamin D3 1 tab PO DAILY 03/06/19 03/06/19 [Oyster Shell-D 250 mg Tablet] Dicyclomine [Bentyl] 20 mg PO QID PRN 03/06/19 03/06/19 Previous Rx's Medication Instructions Recorded Diltiazem Cd [Cardizem CD] 180 mg PO DAILY #30 cap.er.24h 07/24/18 Ferrous Sulfate [Iron (65 MG 325 mg PO BID #60 tab 12/22/18 Elemental)] Allergies Allergy/AdvReac Type Severity Reaction Status Date / Time aspirin AdvReac Dyspnea,Nausea/Vomiting,Dizzy,Tingling,Warm Verified 03/06/19 18:03 sensation Review of Systems ROS Statement: Those systems with pertinent positive or pertinent negative responses have been documented in the HPI. ROS Other: All systems not noted in ROS Statement are negative. Past Medical History Past Medical History: Atrial Fibrillation, Chest Pain / Angina, Heart Failure, Diabetes Mellitus, GERD/Reflux, Hyperlipidemia, Hypertension, Osteoarthritis (OA), Respiratory Disorder, Sleep Apnea/CPAP/BIPAP, Thyroid Disorder Additional Past Medical History / Comment(s): DDD WITH BACK PAIN, OCCASIONAL SWELLING IN FEET, USES C-PAP MACHINE. History of Any Multi-Drug Resistant Organisms: None Reported Past Surgical History: Cholecystectomy, Hysterectomy, Joint Replacement Additional Past Surgical History / Comment(s): EGD for gastric reflux. Excision of lipomas. bilateral cataracts, total knee., Pain clinic procedures. Past Anesthesia/Blood Transfusion Reactions: No Reported Reaction Past Psychological History: Anxiety, Depression Smoking Status: Former smoker Past Alcohol Use History: None Reported Past Drug Use History: None Reported - Past Family History Brother(s) Family Medical History: Congestive Heart Failure (CHF), COPD, Coronary Artery Disease (CAD), Diabetes Mellitus Daughter(s) Additional Family Medical History / Comment(s): One from MVA Son(s) Family Medical History: Diabetes Mellitus, Hyperlipidemia, Hypertension Sister(s) Family Medical History: Cancer Mother Family Medical History: Dementia Father Family Medical History: COPD Additional Family Medical History / Comment(s): EMPHYSEMA. General Exam - General Exam Comments Initial Comments: This is an alert and oriented 88-year-old female. No significant distress. Limitations: no limitations, language barrier General appearance: alert, in no apparent distress Head exam: Present: atraumatic Eye exam: Present: normal appearance, PERRL, EOMI. Absent: scleral icterus, conjunctival injection, periorbital swelling ENT exam: Present: normal exam, mucous membranes moist Neck exam: Present: normal inspection Respiratory exam: Present: respiratory distress Cardiovascular Exam: Present: regular rate GI/Abdominal exam: Present: soft, tenderness (Left lower quadrant tenderness.), normal bowel sounds. Absent: distended, guarding, rebound, rigid Extremities exam: Present: normal inspection, full ROM, normal capillary refill. Absent: tenderness, pedal edema, joint swelling, calf tenderness Back exam: Present: normal inspection Neurological exam: Present: alert, oriented X3, CN II-XII intact Psychiatric exam: Present: normal affect, normal mood Skin exam: Present: warm, dry, intact, normal color. Absent: rash Course Vital Signs 03/06/19 03/06/19 03/06/19 17:32 18:44 19:07 Temperature 99.0 F Pulse Rate 102 H 79 76 Respiratory 22 16 16 Rate Blood Pressure 134/82 130/89 130/89 O2 Sat by Pulse 99 98 99 Oximetry 03/06/19 20:11 Temperature 98 F Pulse Rate 80 Respiratory 16 Rate Blood Pressure 133/77 O2 Sat by Pulse 100 Oximetry Medical Decision Making - Medical Decision Making Patient is an 88-year-old female presents emergency department today with tingling of normal outpatient CTP she's been having abdominal pain for the past past week. At this time she reports occasional chills, and nausea. Patient has been given IV fluids labwork obtained. Lab work shows no leukocytosis. I did review computed tomography scan which shows acute sigmoid diverticulitis with pancolitis. Patient case discussed with Dr. Bacon And discussed this with Dr. Issa. Requested Patient will be admitted at this time. Patient started on Levaquin and flagyl. - Lab Data Result diagrams: 03/06/19 18:00 03/06/19 18:00 Lab Results 03/06/19 03/06/19 03/06/19 Range/Units 18:00 18:00 18:00 WBC 8.8 (3.8-10.6) k/uL RBC 4.54 (3.80-5.40) m/uL Hgb 13.3 (11.4-16.0) gm/dL Hct 40.5 (34.0-46.0) % MCV 89.2 (80.0-100.0) fL MCH 29.3 (25.0-35.0) pg MCHC 32.9 (31.0-37.0) g/dL RDW 14.5 (11.5-15.5) % Plt Count 263 (150-450) k/uL Neutrophils % 62 % Lymphocytes % 30 % Monocytes % 4 % Eosinophils % 2 % Basophils % 0 % Neutrophils # 5.5 (1.3-7.7) k/uL Lymphocytes # 2.6 (1.0-4.8) k/uL Monocytes # 0.3 (0-1.0) k/uL Eosinophils # 0.2 (0-0.7) k/uL Basophils # 0.0 (0-0.2) k/uL PT (9.0-12.0) sec INR (<1.2) APTT (22.0-30.0) sec Sodium 138 (137-145) mmol/L Potassium 3.7 (3.5-5.1) mmol/L Chloride 96 L (98-107) mmol/L Carbon Dioxide 34 H (22-30) mmol/L Anion Gap 8 mmol/L BUN 15 (7-17) mg/dL Creatinine 0.55 (0.52-1.04) mg/dL Est GFR (CKD-EPI)AfAm >90 (>60 ml/min/1.73 sqM) Est GFR (CKD-EPI)NonAf 85 (>60 ml/min/1.73 sqM) Glucose 170 H (74-99) mg/dL Plasma Lactic Acid [place] 2.0 (0.7-2.0) mmol/L Calcium 9.4 (8.4-10.2) mg/dL Total Bilirubin 0.4 (0.2-1.3) mg/dL AST 19 (14-36) U/L ALT 16 (9-52) U/L Alkaline Phosphatase 56 (38-126) U/L Total Protein 6.7 (6.3-8.2) g/dL Albumin 4.0 (3.5-5.0) g/dL Amylase 50 (30-110) U/L Lipase 80 (23-300) U/L Urine Color Urine Appearance (Clear) Urine pH (5.0-8.0) Ur Specific [place] (1.001-1.035) Urine Protein (Negative) Urine Glucose (UA) (Negative) Urine Ketones (Negative) Urine Blood (Negative) Urine Nitrite (Negative) Urine Bilirubin (Negative) Urine Urobilinogen (<2.0) mg/dL Ur Leukocyte Esterase (Negative) Urine RBC (0-5) /hpf Urine WBC (0-5) /hpf Ur Squamous Epith Cells (0-4) /hpf 03/06/19 03/06/19 Range/Units 18:00 19:00 WBC (3.8-10.6) k/uL RBC (3.80-5.40) m/uL Hgb (11.4-16.0) gm/dL Hct (34.0-46.0) % MCV (80.0-100.0) fL MCH (25.0-35.0) pg MCHC (31.0-37.0) g/dL RDW (11.5-15.5) % Plt Count (150-450) k/uL Neutrophils % % Lymphocytes % % Monocytes % % Eosinophils % % Basophils % % Neutrophils # (1.3-7.7) k/uL Lymphocytes # (1.0-4.8) k/uL Monocytes # (0-1.0) k/uL Eosinophils # (0-0.7) k/uL Basophils # (0-0.2) k/uL PT 10.5 (9.0-12.0) sec INR 1.0 (<1.2) APTT 24.5 (22.0-30.0) sec Sodium (137-145) mmol/L Potassium (3.5-5.1) mmol/L Chloride (98-107) mmol/L Carbon Dioxide (22-30) mmol/L Anion Gap mmol/L BUN (7-17) mg/dL Creatinine (0.52-1.04) mg/dL Est GFR (CKD-EPI)AfAm (>60 ml/min/1.73 sqM) Est GFR (CKD-EPI)NonAf (>60 ml/min/1.73 sqM) Glucose (74-99) mg/dL Plasma Lactic Acid [place]io (0.7-2.0) mmol/L Calcium (8.4-10.2) mg/dL Total Bilirubin (0.2-1.3) mg/dL AST (14-36) U/L ALT (9-52) U/L Alkaline Phosphatase (38-126) U/L Total Protein (6.3-8.2) g/dL Albumin (3.5-5.0) g/dL Amylase (30-110) U/L Lipase (23-300) U/L Urine Color Yellow Urine Appearance Clear (Clear) Urine pH 5.5 (5.0-8.0) Ur Specific [place] 1.050 H (1.001-1.035) Urine Protein Trace H (Negative) Urine Glucose (UA) Negative (Negative) Urine Ketones Negative (Negative) Urine Blood Trace H (Negative) Urine Nitrite Negative (Negative) Urine Bilirubin Negative (Negative) Urine Urobilinogen <2.0 (<2.0) mg/dL Ur Leukocyte Esterase Negative (Negative) Urine RBC 3 (0-5) /hpf Urine WBC 1 (0-5) /hpf Ur Squamous Epith Cells <1 (0-4) /hpf - Radiology Data Radiology results: report reviewed CT abdomen and pelvis shows acute sigmoid diverticulitis currently and complicated with no adjacent abscess or free air. There appears to be pancolitis within the entirety of the transverse and descending colon as there is lack of prostration. Hepatic cysts and other lesions are too small to actively characterized although likely smaller cysts. Nonobstructing right renal calculus noted. Disposition Clinical Impression: Pancolitis, Diverticulitis Disposition: ADMITTED IP TO THIS HOSP Condition: Good Is patient prescribed a controlled substance at d/c from ED?: No Referrals: Kareem Issa MD [Primary Care Provider] - 1-2 days Time of Disposition: 20:21
[2019-03-06] MEDS ORDERED: SODIUM CHLORIDE 0.9% 1,000 ML IV STA (18:13)
[2019-03-06] MEDS ORDERED: MORPHINE SULFATE 4 MG/ML SYRINGE IV STA (18:13)
[2019-03-06] MEDS ORDERED: ONDANSETRON 4 MG/2 ML VIAL IVP STA (18:13)
[2019-03-06] MEDS ORDERED: LEVOFLOXACIN 750MG-D5W PMX 750 MG in DEXTROSE/WATER 1 150ML.BAG IVPB STA (18:13)
[2019-03-06] MEDS ORDERED: SODIUM CHLORIDE 0.9% 2,000 ML IV STA (18:13)
[2019-03-06] MEDS ORDERED: metroNIDAZOLE-NS PMX 500 MG in SALINE 1 100ML.BAG IVPB STA (18:13)
[2019-03-06 18:37] LABS: Basophils % (A) 0 %; Eosinophils # (A) 0.2 k/uL (0-0.7); Eosinophils % (A) 2 %; HCT 40.5 % (34.0-46.0); HGB 13.3 gm/dL (11.4-16.0); Lymphocytes # (A) 2.6 k/uL (1.0-4.8); Lymphocytes % (A) 30 %; MCH 29.3 pg (25.0-35.0); MCHC 32.9 g/dL (31.0-37.0); MCV 89.2 fL (80.0-100.0); Mean Platelet Volume 7.5; Monocytes # (A) 0.3 k/uL (0-1.0); Monocytes % (A) 4 %; Neutrophils # (A) 5.5 k/uL (1.3-7.7); Neutrophils % (A) 62 %; Platelet Count 263 k/uL (150-450); RBC 4.54 m/uL (3.80-5.40); RDW 14.5 % (11.5-15.5); WBC 8.8 k/uL (3.8-10.6)
[2019-03-06 18:43] LABS: ALT 16 U/L (9-52); AST 19 U/L (14-36); African American GFR (CKD) >90 (>60 ml/min/1.73 sqM); Alkaline Phosphatase 56 U/L (38-126); Amylase 50 U/L (30-110); Anion Gap 8 mmol/L; Blood Urea Nitrogen 15 mg/dL (7-17); Calcium 9.4 mg/dL (8.4-10.2); Carbon Dioxide 34 mmol/L (22-30); Chloride 96 mmol/L (98-107); Glucose 170 mg/dL (74-99); Potassium 3.7 mmol/L (3.5-5.1); Sodium 138 mmol/L (137-145); Total Bilirubin 0.4 mg/dL (0.2-1.3); Total Protein 6.7 g/dL (6.3-8.2)
[2019-03-06 18:48] LABS: Partial Thromboplastin Time 24.5 sec (22.0-30.0); Prothrombin Time 10.5 sec (9.0-12.0)
[2019-03-06 19:16] LABS: Appearance,Urine Clear (Clear); Bilirubin,Urine Negative (Negative); Blood,Urine Trace (Negative); Color,Urine Yellow; Glucose,Urine (UA) Negative (Negative); Ketones,Urine Negative (Negative); Leukocyte Esterase,Urine Negative (Negative); Nitrite,Urine Negative (Negative); PH, Urine 5.5 (5.0-8.0); Protein,Urine Trace (Negative); RBC,Urine 3 /hpf (0-5); Squamous Epithelial Cell,Urine <1 /hpf (0-4); Urobilinogen,Urine <2.0 mg/dL (<2.0); WBC,Urine 1 /hpf (0-5)
[2019-03-06] MEDS ORDERED: LORazepam 2 MG/ML INJ IV PRN (20:23)
[2019-03-06] MEDS ORDERED: NALOXONE 0.4 MG/ML 1 ML VIAL IV PRN (20:23)
[2019-03-06] MEDS ORDERED: ACETAMINOPHEN TAB 325 MG TAB PO PRN (20:23)
[2019-03-06] MEDS ORDERED: MORPHINE SULFATE 4 MG/ML SYRINGE IV PRN (20:23)
[2019-03-06] MEDS ORDERED: ONDANSETRON 4 MG/2 ML VIAL IVP PRN (20:23)
[2019-03-06] MEDS ORDERED: IBUPROFEN 400 MG TAB PO PRN (20:23)
[2019-03-06] MEDS ORDERED: DICYCLOMINE 20 MG TAB PO PRN (20:26)
[2019-03-06] MEDS: APIXABAN 2.5 MG TABLET PO SCH (22:16)
[2019-03-06] MEDS: metFORMIN 850 MG TAB PO SCH (22:16)
[2019-03-06] MEDS: FERROUS SULFATE 325 MG TAB PO SCH (22:16)
[2019-03-06] MEDS: PANTOPRAZOLE 40 MG TABLET PO SCH (22:16)
[2019-03-06] MEDS: HYDROcodone/APAP 7.5-325MG 1 EACH TAB PO PRN (22:59)
[2019-03-07] MEDS: metroNIDAZOLE-NS PMX 500 MG in SALINE 1 100ML.BAG IVPB SCH ×3 (01:47→17:27)
[2019-03-07] MEDS: SODIUM CHLORIDE 0.9% 1,000 ML IV SCH ×3 (03:05→15:32)
[2019-03-07] MEDS ORDERED: PANTOPRAZOLE 40 MG/10 ML VIAL IV SCH (09:00)
--- NOTE | 2019-03-07 09:33 | P.HPIM ---
History of Present Illness H&P Date: 03/07/19 This is an 88-year-old female patient who presents with complaints of abdominal pain. Patient has been following outpatient with her PCP and had a CAT scan completed showing acute sigmoid diverticulitis currently uncomplicated with no abscess or free air at bedtime. Near pancolitis in the entirety of the transverse colon and her lack haustration. Hepatic cysts and others are too small to accurately characterize although likely smaller cyst. Nonobstructing right renal calculus. She has a past medical history of A. fib in which she's on eliquis, chest pain, heart failure, diabetes mellitus, GERD, hyperlipidemia, hypertension, osteoarthritis, sleep apnea anxiety and depression. Amylase and lipase within normal limits. Patient has been started on Levaquin and Flagyl. Clear liquid diet. At this time patient denies chest pain or shortness of breath. Patient denies any abdominal this time. Patient denies any urinary burning or frequency Review of Systems please refer to HPI otherwise unremarkable Past Medical History Past Medical History: Atrial Fibrillation, Chest Pain / Angina, Heart Failure, Diabetes Mellitus, GERD/Reflux, Hyperlipidemia, Hypertension, Osteoarthritis (OA), Respiratory Disorder, Sleep Apnea/CPAP/BIPAP, Thyroid Disorder Additional Past Medical History / Comment(s): DDD WITH BACK PAIN, OCCASIONAL SWELLING IN FEET, USES C-PAP MACHINE. History of Any Multi-Drug Resistant Organisms: None Reported Past Surgical History: Cholecystectomy, Hysterectomy, Joint Replacement Additional Past Surgical History / Comment(s): EGD for gastric reflux. Excision of lipomas. bilateral cataracts, total knee., Pain clinic procedures. Past Anesthesia/Blood Transfusion Reactions: No Reported Reaction Past Psychological History: Anxiety, Depression Smoking Status: Former smoker Past Alcohol Use History: None Reported Additional Past Alcohol Use History / Comment(s): SMOKED 3 PPD. STARTED SMOKING AGE 15, QUIT 35 YEARS AGO Past Drug Use History: None Reported Additional Drug Use History / Comment(s): . - Past Family History Brother(s) Family Medical History: Congestive Heart Failure (CHF), COPD, Coronary Artery Disease (CAD), Diabetes Mellitus Daughter(s) Additional Family Medical History / Comment(s): One from MVA Son(s) Family Medical History: Diabetes Mellitus, Hyperlipidemia, Hypertension Sister(s) Family Medical History: Cancer Mother Family Medical History: Dementia Father Family Medical History: COPD Additional Family Medical History / Comment(s): EMPHYSEMA. Medications and Allergies Home Medications Medication Instructions Recorded Confirmed Type Apixaban [Eliquis] 2.5 mg PO BID 02/14/16 03/06/19 History Losartan/Hydrochlorothiazide 1 tab PO DAILY 09/02/16 03/06/19 History [Hyzaar 100-25 Tablet] Diltiazem Cd [Cardizem CD] 180 mg PO DAILY #30 cap.er.24h 07/24/18 03/06/19 Rx Pantoprazole Sodium [Protonix] 40 mg PO BID 09/14/18 03/06/19 History metFORMIN HCL 850 mg PO HS 11/03/18 03/06/19 History HYDROcodone/APAP 7.5-325MG [[place] 1 tab PO Q8H PRN 12/15/18 03/06/19 History 7.5-325] Ferrous Sulfate [Iron (65 MG 325 mg PO BID #60 tab 12/22/18 03/06/19 Rx Elemental)] Calcium Carbonate/Vitamin D3 1 tab PO DAILY 03/06/19 03/06/19 History [Oyster Shell-D 250 mg Tablet] Dicyclomine [Bentyl] 20 mg PO QID PRN 03/06/19 03/06/19 History Allergies Allergy/AdvReac Type Severity Reaction Status Date / Time aspirin AdvReac Dyspnea,Nausea/Vomiting,Dizzy,Tingling,Warm Verified 03/06/19 18:03 sensation Physical Exam Vitals: Vital Signs Temp Pulse Pulse Resp BP BP Pulse Ox 03/07/19 05:19 97.5 F L 71 16 136/60 100 03/06/19 22:21 97.8 F 87 16 134/97 99 03/06/19 20:11 98 F 80 16 133/77 100 03/06/19 19:07 76 16 130/89 99 03/06/19 18:44 79 16 130/89 98 03/06/19 17:32 99.0 F 102 H 22 134/82 99 Intake and Output 03/06/19 03/07/19 03/07/19 22:59 06:59 14:59 Intake Total 150 1390 Balance 150 1390 Intake: Intake, IV Titration 150 800 Amount Levofloxacin 750Mg-D5w 150 Pmx 750 mg In Dextrose/ Water 1 150ml.bag @ 100 mls/hr IVPB [facility] Rx#: [id number] Sodium Chloride 0.9% 1, 700 000 ml @ 100 mls/hr IV . Q10H [facility] Rx#:[id number] metroNIDAZOLE-NS PMX 500 100 mg In Saline 1 100ml.bag @ 100 mls/hr IVPB Q8H [facility] Rx#:[id number] Oral 590 Other: Voiding Method Toilet # Voids 1 1 Weight 82.554 kg Please refer to HPI otherwise unremarkable Results CBC & Chem 7: 03/06/19 18:00 03/06/19 18:00 Labs: Abnormal Lab Results - Last 24 Hours (Table) 03/06/19 03/06/19 Range/Units 18:00 19:00 Chloride 96 L (98-107) mmol/L Carbon Dioxide 34 H (22-30) mmol/L Glucose 170 H (74-99) mg/dL Ur Specific [place] 1.050 H (1.001-1.035) Urine Protein Trace H (Negative) Urine Blood Trace H (Negative) Thrombosis Risk Factor Assmnt - Choose All That Apply Any of the Below Risk Factors Present?: Yes Each Factor Represents 1 point: Obesity (BMI >25) Other Risk Factors: Yes Each Risk Factor Represents 3 Points: Age 75 years or older Thrombosis Risk Factor Assessment Total Risk Factor Score: 4 Thrombosis Risk Factor Assessment Level: Moderate Risk Assessment and Plan Assessment: 1. Abdominal pain related to diverticulitis and pancolitis. CT of abdomen completed showing acute sigmoid diverticulitis currently compensated with no adjacent abscess or free at this time. Near pancolitis with the entirety of the transverse and descending colon as there is a lack of haustration. Hepatic cysts and other lesions are too small to accurately characterize although likely small cyst. Nonobstructing right renal calculus patient maintained on clear liquid diet. Routine on Levaquin and Flagyl IV for IV antibiotics 2. History of diverticulitis. Patient was admitted in November in which she was treated with IV antibiotic and discharge 3. History of hemorrhagic bilateral renal cysts. Patient was evaluated by urology during previous admission at that time it was felt that patient has low risk for any malignancy 4. History of diabetes mellitus type 2. Home medications resumed 5. History of essential hypertension 6. History of obstructive sleep apnea 7. History of chronic atrial fibrillation anticoagulated with eliquis 8. History of vitamin D deficiency DVT prophylaxis eliquis. GI prophylaxis Protonix Time with Patient: Greater than 30 (Greater than 60% of the total time spent in counseling and coordination of careI performed an examination of the patient and discussed their management with the Nurse Practitioner. I have reviewed the Nurse Practitioner's notes and agree with the documented findings and plan of care)
[2019-03-07] MEDS: LOSARTAN-HCTZ 50-12.5 MG 1 EACH TAB PO SCH (10:37)
[2019-03-07] MEDS: PANTOPRAZOLE 40 MG TABLET PO SCH ×2 (10:37→17:27)
[2019-03-07] MEDS: APIXABAN 2.5 MG TABLET PO SCH ×2 (10:37→20:03)
[2019-03-07] MEDS: DILTIAZEM CD 180 MG CAP.ER.24H PO SCH (10:37)
[2019-03-07] MEDS: FERROUS SULFATE 325 MG TAB PO SCH ×2 (10:37→20:03)
[2019-03-07 11:45] LABS: Glucose,Whole Blood 109 mg/dL (75-99)
[2019-03-07] MEDS: INSULIN ASPART (NovoLOG) 100 UNIT/ML VIAL SQ SCH ×3 (13:07→20:04)
[2019-03-07] MEDS: KETOROLAC 30 MG/ML 1 ML VIAL IVP PRN ×2 (14:40→22:24)
--- NOTE | 2019-03-07 15:06 | P.GSCN ---
History of Present Illness Consult date: 03/07/19 Reason for Consult: Diverticulitis Requesting physician: Mary Prabhakar History of present illness: CHIEF COMPLAINT: Abdominal pain HISTORY OF PRESENT ILLNESS: 88 year old female who was evaluated by her PCP outpatient for abdominal pain. She underwent CT scan revealing acute sigmoid diverticulitis. She presented to the ER for further evaluation as directed by her PCP. Patient examined at the bedside. She denies nausea or vomiting. Denies fever or chills. Reports generalized abdominal pain. Reports loose stools today. Patient denies previous bowel surgery. She was admitted to the hospital a few months ago and diagnosed with mild diverticulitis at that time PAST MEDICAL HISTORY: See list. PAST SURGICAL HISTORY: See list. SOCIAL HISTORY: No illicit drug use. REVIEW OF SYSTEMS: CONSTITUTIONAL: Denies fever or chills. HEENT: Denies blurred vision, vision changes, or eye pain. Denies hemoptysis CARDIOVASCULAR: Denies chest pain or pressure. RESPIRATORY: No shortness of breath. GASTROINTESTINAL: Refer to HPI for pertinent findings HEMATOLOGIC: Denies bleeding disorders. GENITOURINARY: Denies any blood in urine. SKIN: Denies pruitis. Denies rash. PHYSICAL EXAM: VITAL SIGNS: Reviewed. GENERAL: Well-developed in no acute distress. HEENT: No sclera icterus. Extraocular movements grossly intact. Moist buccal mucosa. Head is atraumatic, normocephalic. ABDOMEN: Soft. Obese. Nondistended. Generalized pain with palpation. NEUROLOGIC: Alert and oriented. Cranial nerves II through XII grossly intact. LABORATORY DATA: WBC 8.8. Hemoglobin 13.3. Lactic acid 2.0. Bilirubin 0.4. AST 19. ALT 16. Alkaline phosphatase 56. Lipase 50. Lipase 80. IMAGING: CT abdomen and pelvis completed on 03/06/2019: Acute sigmoid diverticulitis. On Kidney with no adjacent abscess or free air. Appearance of near pancolitis. ASSESSMENT: 1. Abdominal pain 2. Acute diverticulitis 3. Pancolitis PLAN: 1. Patient currently tolerating clear liquid diet. Continue liquid diet at this time 2. Continue antibiotics. Currently receiving Levaquin and Flagyl 3. GI also consulted. Await input 4. No surgical intervention recommended at this time. Further recommendations pending patient clinical course Nurse practitioner note has been reviewed by physician. Signing provider agrees with the documented findings, assessment, and plan of care. Past Medical History Past Medical History: Atrial Fibrillation, Chest Pain / Angina, Heart Failure, Diabetes Mellitus, GERD/Reflux, Hyperlipidemia, Hypertension, Osteoarthritis (OA), Respiratory Disorder, Sleep Apnea/CPAP/BIPAP, Thyroid Disorder Additional Past Medical History / Comment(s): DDD WITH BACK PAIN, OCCASIONAL SWELLING IN FEET, USES C-PAP MACHINE. History of Any Multi-Drug Resistant Organisms: None Reported Past Surgical History: Cholecystectomy, Hysterectomy, Joint Replacement Additional Past Surgical History / Comment(s): EGD for gastric reflux. Excision of lipomas. bilateral cataracts, total knee., Pain clinic procedures. Past Anesthesia/Blood Transfusion Reactions: No Reported Reaction Past Psychological History: Anxiety, Depression Smoking Status: Former smoker Past Alcohol Use History: None Reported Additional Past Alcohol Use History / Comment(s): SMOKED 3 PPD. STARTED SMOKING AGE 15, QUIT 35 YEARS AGO Past Drug Use History: None Reported Additional Drug Use History / Comment(s): . - Past Family History Brother(s) Family Medical History: Congestive Heart Failure (CHF), COPD, Coronary Artery Disease (CAD), Diabetes Mellitus Daughter(s) Additional Family Medical History / Comment(s): One from MVA Son(s) Family Medical History: Diabetes Mellitus, Hyperlipidemia, Hypertension Sister(s) Family Medical History: Cancer Mother Family Medical History: Dementia Father Family Medical History: COPD Additional Family Medical History / Comment(s): EMPHYSEMA. Medications and Allergies Home Medications Medication Instructions Recorded Confirmed Type Apixaban [Eliquis] 2.5 mg PO BID 02/14/16 03/06/19 History Losartan/Hydrochlorothiazide 1 tab PO DAILY 09/02/16 03/06/19 History [Hyzaar 100-25 Tablet] Diltiazem Cd [Cardizem CD] 180 mg PO DAILY #30 cap.er.24h 07/24/18 03/06/19 Rx Pantoprazole Sodium [Protonix] 40 mg PO BID 09/14/18 03/06/19 History metFORMIN HCL 850 mg PO HS 11/03/18 03/06/19 History HYDROcodone/APAP 7.5-325MG [[place] 1 tab PO Q8H PRN 12/15/18 03/06/19 History 7.5-325] Ferrous Sulfate [Iron (65 MG 325 mg PO BID #60 tab 12/22/18 03/06/19 Rx Elemental)] Calcium Carbonate/Vitamin D3 1 tab PO DAILY 03/06/19 03/06/19 History [Oyster Shell-D 250 mg Tablet] Dicyclomine [Bentyl] 20 mg PO QID PRN 03/06/19 03/06/19 History Allergies Allergy/AdvReac Type Severity Reaction Status Date / Time aspirin AdvReac Dyspnea,Nausea/Vomiting,Dizzy,Tingling,Warm Verified 03/06/19 18:03 sensation Surgical - Exam Vital Signs Temp Pulse Resp BP Pulse Ox 99.0 F 102 H 22 134/82 99 03/06/19 17:32 03/06/19 17:32 03/06/19 17:32 03/06/19 17:32 03/06/19 17:32 Results - Labs 03/06/19 18:00 03/06/19 18:00 Abnormal Lab Results - Last 24 Hours (Table) 03/06/19 03/06/19 03/07/19 Range/Units 18:00 19:00 11:44 Chloride 96 L (98-107) mmol/L Carbon Dioxide 34 H (22-30) mmol/L Glucose 170 H (74-99) mg/dL POC Glucose (mg/dL) 109 H (75-99) mg/dL Ur Specific [place] 1.050 H (1.001-1.035) Urine Protein Trace H (Negative) Urine Blood Trace H (Negative) Diabetes panel 03/06/19 Range/Units 18:00 Sodium 138 (137-145) mmol/L Potassium 3.7 (3.5-5.1) mmol/L Chloride 96 L (98-107) mmol/L Carbon Dioxide 34 H (22-30) mmol/L BUN 15 (7-17) mg/dL Creatinine 0.55 (0.52-1.04) mg/dL Glucose 170 H (74-99) mg/dL Calcium 9.4 (8.4-10.2) mg/dL AST 19 (14-36) U/L ALT 16 (9-52) U/L Alkaline Phosphatase 56 (38-126) U/L Total Protein 6.7 (6.3-8.2) g/dL Albumin 4.0 (3.5-5.0) g/dL Calcium panel 03/06/19 Range/Units 18:00 Calcium 9.4 (8.4-10.2) mg/dL Albumin 4.0 (3.5-5.0) g/dL Pituitary panel 03/06/19 Range/Units 18:00 Sodium 138 (137-145) mmol/L Potassium 3.7 (3.5-5.1) mmol/L Chloride 96 L (98-107) mmol/L Carbon Dioxide 34 H (22-30) mmol/L BUN 15 (7-17) mg/dL Creatinine 0.55 (0.52-1.04) mg/dL Glucose 170 H (74-99) mg/dL Calcium 9.4 (8.4-10.2) mg/dL Adrenal panel 03/06/19 Range/Units 18:00 Sodium 138 (137-145) mmol/L Potassium 3.7 (3.5-5.1) mmol/L Chloride 96 L (98-107) mmol/L Carbon Dioxide 34 H (22-30) mmol/L BUN 15 (7-17) mg/dL Creatinine 0.55 (0.52-1.04) mg/dL Glucose 170 H (74-99) mg/dL Calcium 9.4 (8.4-10.2) mg/dL Total Bilirubin 0.4 (0.2-1.3) mg/dL AST 19 (14-36) U/L ALT 16 (9-52) U/L Alkaline Phosphatase 56 (38-126) U/L Total Protein 6.7 (6.3-8.2) g/dL Albumin 4.0 (3.5-5.0) g/dL
[2019-03-07] MEDS: CALCIUM CARB-VIT D 250MG-125UN 1 EACH TAB PO SCH (15:32)
[2019-03-07 16:59] LABS: Glucose,Whole Blood 121 mg/dL (75-99)
[2019-03-07 19:57] LABS: Glucose,Whole Blood 157 mg/dL (75-99)
[2019-03-07] MEDS: metFORMIN 850 MG TAB PO SCH (20:03)
[2019-03-07] MEDS: LEVOFLOXACIN 750MG-D5W PMX 750 MG in DEXTROSE/WATER 1 150ML.BAG IVPB SCH (20:04)
[2019-03-08] MEDS: metroNIDAZOLE-NS PMX 500 MG in SALINE 1 100ML.BAG IVPB SCH ×3 (02:09→17:57)
[2019-03-08] MEDS: KETOROLAC 30 MG/ML 1 ML VIAL IVP PRN (04:29)
[2019-03-08] MEDS: SODIUM CHLORIDE 0.9% 1,000 ML IV SCH ×2 (06:31→14:18)
[2019-03-08 06:59] LABS: Glucose,Whole Blood 105 mg/dL (75-99)
[2019-03-08] MEDS: INSULIN ASPART (NovoLOG) 100 UNIT/ML VIAL SQ SCH ×4 (07:12→22:30)
[2019-03-08] MEDS: CALCIUM CARB-VIT D 250MG-125UN 1 EACH TAB PO SCH (07:14)
[2019-03-08] MEDS: PANTOPRAZOLE 40 MG TABLET PO SCH ×2 (07:14→17:57)
[2019-03-08] MEDS: DILTIAZEM CD 180 MG CAP.ER.24H PO SCH (07:14)
[2019-03-08] MEDS: FERROUS SULFATE 325 MG TAB PO SCH ×2 (07:14→22:29)
[2019-03-08] MEDS: APIXABAN 2.5 MG TABLET PO SCH ×2 (07:14→22:30)
[2019-03-08] MEDS: HYDROcodone/APAP 7.5-325MG 1 EACH TAB PO PRN ×2 (07:15→19:42)
[2019-03-08] MEDS: LOSARTAN-HCTZ 50-12.5 MG 1 EACH TAB PO SCH (07:15)
[2019-03-08 09:04] LABS: Basophils # (A) 0.1 k/uL (0-0.2); Basophils % (A) 1 %; Eosinophils # (A) 0.1 k/uL (0-0.7); Eosinophils % (A) 2 %; HCT 39.7 % (34.0-46.0); HGB 12.9 gm/dL (11.4-16.0); Lymphocytes # (A) 1.8 k/uL (1.0-4.8); Lymphocytes % (A) 22 %; MCH 29.5 pg (25.0-35.0); MCHC 32.6 g/dL (31.0-37.0); MCV 90.8 fL (80.0-100.0); Mean Platelet Volume 7.7; Monocytes # (A) 0.4 k/uL (0-1.0); Monocytes % (A) 5 %; Neutrophils # (A) 5.6 k/uL (1.3-7.7); Neutrophils % (A) 70 %; Platelet Count 222 k/uL (150-450); RBC 4.37 m/uL (3.80-5.40)
[2019-03-08 09:05] LABS: ALT 21 U/L (9-52); AST 18 U/L (14-36); African American GFR (CKD) >90 (>60 ml/min/1.73 sqM); Albumin 3.7 g/dL (3.5-5.0); Alkaline Phosphatase 46 U/L (38-126); Anion Gap 8 mmol/L; Blood Urea Nitrogen 6 mg/dL (7-17); Calcium 9.2 mg/dL (8.4-10.2); Carbon Dioxide 33 mmol/L (22-30); Chloride 100 mmol/L (98-107); Glucose 109 mg/dL (74-99); Potassium 3.8 mmol/L (3.5-5.1); Sodium 141 mmol/L (137-145); Total Bilirubin 0.6 mg/dL (0.2-1.3); Total Protein 6.4 g/dL (6.3-8.2)
--- NOTE | 2019-03-08 10:51 | P.PN ---
Subjective Progress Note Date: 03/08/19 This is an 88-year-old female patient who presents with complaints of abdominal pain. Patient has been following outpatient with her PCP and had a CAT scan completed showing acute sigmoid diverticulitis currently uncomplicated with no abscess or free air at bedtime. Near pancolitis in the entirety of the transverse colon and her lack haustration. Hepatic cysts and others are too small to accurately characterize although likely smaller cyst. Nonobstructing right renal calculus. She has a past medical history of A. fib in which she's on eliquis, chest pain, heart failure, diabetes mellitus, GERD, hyperlipidemia, hypertension, osteoarthritis, sleep apnea anxiety and depression. Amylase and lipase within normal limits. Patient has been started on Levaquin and Flagyl. Clear liquid diet. At this time patient denies chest pain or shortness of breath. Patient denies any abdominal this time. Patient denies any urinary burning or frequency On 03/08/19 patient is awake, alert & oriented x3 sitting up in chair. Plan of care explained in depth to patient and she verbalizes understanding. Patient reports tolerating clear liquid diet though is still experiencing nausea. Abdomen is soft, distended, hyperactive bowel sounds. She reports dizziness yesterday with movement, but is not experiencing any dizziness this morning. She states that this is not a new symptom but has her worried. At this time we will order othostatic blood pressures. Patient denies chest pain or SOB. Denies urinary burning or frequency. Objective - Vital Signs Vital signs: Vital Signs Temp 97.9 F 03/08/19 03:51 Pulse 79 03/08/19 03:51 Resp 16 03/08/19 03:51 BP 163/71 03/08/19 03:51 Pulse Ox 94 L 03/08/19 03:51 Intake & Output 03/07/19 03/08/19 03/08/19 18:59 06:59 18:59 Intake Total 900 1150 Balance 900 1150 Intake: Intake, IV Titration 900 1150 Amount Levofloxacin 750Mg-D5w 100 Pmx 750 mg In Dextrose/ Water 1 150ml.bag @ 100 mls/hr IVPB HS [facility] Rx#: [id number] Sodium Chloride 0.9% 1, 800 950 000 ml @ 100 mls/hr IV . Q10H [facility] Rx#:[id number] metroNIDAZOLE-NS PMX 500 100 100 mg In Saline 1 100ml.bag @ 100 mls/hr IVPB Q8H [facility] Rx#:[id number] Other: Voiding Method Toilet Toilet # Voids 1 3 - Exam Head normocephalic Neck supple Lungs clear to auscultation bilaterally no wheezing or crackles Heart rate irregular, afib rate controlled. Abdomen is soft, nontender, distended positive bowel sounds no hepatosplenomegaly Extremities no edema Neuro alert and orientated to 3. Equal strength in all four extremities, pupils equal and reactive, no facial droop. Speech clear. - Labs CBC & Chem 7: 03/08/19 07:34 03/08/19 07:34 Labs: Abnormal Lab Results - Last 24 Hours (Table) 03/07/19 03/07/19 03/07/19 Range/Units 11:44 16:58 19:55 Carbon Dioxide (22-30) mmol/L BUN (7-17) mg/dL Glucose (74-99) mg/dL POC Glucose (mg/dL) 109 H 121 H 157 H (75-99) mg/dL 03/08/19 03/08/19 Range/Units 06:58 07:34 Carbon Dioxide 33 H (22-30) mmol/L BUN 6 L (7-17) mg/dL Glucose 109 H (74-99) mg/dL POC Glucose (mg/dL) 105 H (75-99) mg/dL Microbiology - Last 24 Hours (Table) 03/06/19 18:00 Blood Culture - Preliminary Blood No Growth after 24 hours Assessment and Plan Assessment: 1. Abdominal pain related to diverticulitis and pancolitis. CT of abdomen completed showing acute sigmoid diverticulitis currently compensated with no adjacent abscess or free at this time. Near pancolitis with the entirety of the transverse and descending colon as there is a lack of haustration. Hepatic cysts and other lesions are too small to accurately characterize although likely small cyst. Nonobstructing right renal calculus patient maintained on clear liquid diet. On Levaquin and Flagyl IV for IV antibiotics. Patient evaluated by surgical service, recommend continuing antibiotics, continue clear liquid diet. No surgical intervention at this time. Awaiting GI consult. 2. History of diverticulitis. Patient was admitted in November in which she was treated with IV antibiotic and discharge 3. History of hemorrhagic bilateral renal cysts. Patient was evaluated by urology during previous admission at that time it was felt that patient has low risk for any malignancy 4. History of diabetes mellitus type 2. Home medications resumed 5. History of essential hypertension 6. History of obstructive sleep apnea 7. History of chronic atrial fibrillation anticoagulated with eliquis 8. History of vitamin D deficiency 9. Dizziness. Patient reported that this is not a new symptom, no other neurological changes noted, no changes in vision. Orthostatic blood pressures ordered to evaluate. DVT prophylaxis eliquis. GI prophylaxis Protonix I performed an examination of the patient and discussed their management with the Nurse Practitioner. I have reviewed the Nurse Practitioner's notes and agree with the documented findings and plan of care
--- NOTE | 2019-03-08 11:28 | P.PN ---
Subjective Progress Note Date: 03/08/19 CHIEF COMPLAINT: Abdominal pain HISTORY OF PRESENT ILLNESS: Patient examined this morning the bedside. She continues to report generalized abdominal pain. She states it is slightly better than yesterday. She reports mild nausea today. No vomiting. Tolerating clear liquid diet. She is hesitant to have her diet advanced. PHYSICAL EXAM: VITAL SIGNS: Reviewed. GENERAL: Well-developed in no acute distress. HEENT: No sclera icterus. Extraocular movements grossly intact. Moist buccal mucosa. Head is atraumatic, normocephalic. ABDOMEN: Soft. Obese. Nondistended. Generalized pain with palpation. NEUROLOGIC: Alert and oriented. Cranial nerves II through XII grossly intact. ASSESSMENT: 1. Abdominal pain 2. Acute diverticulitis 3. Pancolitis PLAN: 1. Patient currently tolerating clear liquid diet. Continue liquid diet at this time until abdominal pain improves. 2. Continue antibiotics. Currently receiving Levaquin and Flagyl 3. GI also consulted. Await input 4. No surgical intervention recommended at this time. Further recommendations pending patient clinical course Nurse practitioner note has been reviewed by physician. Signing provider agrees with the documented findings, assessment, and plan of care. Objective - Vital Signs Vital signs: Vital Signs Temp 97.9 F 03/08/19 03:51 Pulse 79 03/08/19 03:51 Resp 16 03/08/19 03:51 BP 163/71 03/08/19 03:51 Pulse Ox 94 L 03/08/19 03:51 Intake & Output 03/07/19 03/08/19 03/08/19 18:59 06:59 18:59 Intake Total 900 1150 Balance 900 1150 Intake: Intake, IV Titration 900 1150 Amount Levofloxacin 750Mg-D5w 100 Pmx 750 mg In Dextrose/ Water 1 150ml.bag @ 100 mls/hr IVPB HS [facility] Rx#: [id number] Sodium Chloride 0.9% 1, 800 950 000 ml @ 100 mls/hr IV . Q10H [facility] Rx#:[id number] metroNIDAZOLE-NS PMX 500 100 100 mg In Saline 1 100ml.bag @ 100 mls/hr IVPB Q8H [facility] Rx#:[id number] Other: Voiding Method Toilet Toilet # Voids 1 3 - Labs CBC & Chem 7: 03/08/19 07:34 03/08/19 07:34 Labs: Abnormal Lab Results - Last 24 Hours (Table) 03/07/19 03/07/19 03/07/19 Range/Units 11:44 16:58 19:55 Carbon Dioxide (22-30) mmol/L BUN (7-17) mg/dL Glucose (74-99) mg/dL POC Glucose (mg/dL) 109 H 121 H 157 H (75-99) mg/dL 03/08/19 03/08/19 Range/Units 06:58 07:34 Carbon Dioxide 33 H (22-30) mmol/L BUN 6 L (7-17) mg/dL Glucose 109 H (74-99) mg/dL POC Glucose (mg/dL) 105 H (75-99) mg/dL Microbiology - Last 24 Hours (Table) 03/06/19 18:00 Blood Culture - Preliminary Blood No Growth after 24 hours
[2019-03-08 11:38] LABS: Glucose,Whole Blood 104 mg/dL (75-99)
[2019-03-08 17:18] LABS: Glucose,Whole Blood 98 mg/dL (75-99)
[2019-03-08 20:32] LABS: Glucose,Whole Blood 152 mg/dL (75-99)
--- NOTE | 2019-03-08 20:33 | P.CONS ---
History of Present Illness - Reason for Consult Consult date: 03/08/19 Diverticulitits Requesting physician: Kareem Issa - Chief Complaint Abdominal pain - History of Present Illness 88-year-old female with multiple medical comorbidities including atrial fibrillation on Eliquis, congestive heart failure, diabetes mellitus, GERD, hyperlipidemia, hypertension, osteoarthritis, TNEZIN, anxiety, depression and chronic back pain who presented to the hospital due to outpatient testing and evaluation of abdominal pain which showed diverticulitis. The patient had been reporting severe abdominal pain in her lower abdomen. She described this as oc curring over 2 days and sharp in nature predominantly below the umbilicus. She reports that bowel movements have been normal, soft in color and nonbloody and does report nausea without any vomiting. The patient was seen in the outpatient setting where she had evaluation on 03/06/2019 with a computed tomography scan of the abdomen which showed sigmoid diverticulitis as well as pancolitis affecting the transverse and descending colon, with hepatic cysts and other findings also noted. The patient has been seen numerous times in the hospital with complaints of abdominal pain with multiple evaluations including CT scans in the past which have not shown any colonic abnormalities, EGD on 11/2018 which was significant for gastritis and has been started on numerous medications including those for reflux as well as antispasmodics with only some improvement of her pain. Follow-up in the outpatient setting with suspicion that a large component of abdominal pain is secondary to her chronic back issues. On current presentation WBC 8, hemoglobin 12.9, platelet count 222,000, total bilirubin 0.6, alkaline phosphatase 46, AST 18 and ALTs 21 with negative amylase and lipase. Currently she is seen lying in bed reporting that pain is somewhat improved. Review of Systems REVIEW OF SYSTEMS: CONSTITUTIONAL: Denies any fevers, chills, weight change or fatigue. CARDIOVASCULAR: Denies any chest pain, palpitations high or low blood pressures RESPIRATORY: Denies any shortness of breath, hemoptysis or cough. GENITOURINARY: No dysuria or hematuria. MUSCULOSKELETAL: No weakness reported. SKIN: Denies any new rashes or lesions, jaundice or pallor. PSYCHIATRIC:History of depression or anxiety. NEUROLOGY: Denies headache, denies any new focal deficits. EARS/NOSE/THROAT: No recent hearing change, congestion, nasal discharge or sore throat. EYES: No pain in eyes, discharge or change in vision. GASTROINTESTINAL: As per HPI. Past Medical History Past Medical History: Atrial Fibrillation, Chest Pain / Angina, Heart Failure, Diabetes Mellitus, GERD/Reflux, Hyperlipidemia, Hypertension, Osteoarthritis (OA), Respiratory Disorder, Sleep Apnea/CPAP/BIPAP, Thyroid Disorder Additional Past Medical History / Comment(s): DDD WITH BACK PAIN, OCCASIONAL SWELLING IN FEET, USES C-PAP MACHINE. History of Any Multi-Drug Resistant Organisms: None Reported Past Surgical History: Cholecystectomy, Hysterectomy, Joint Replacement Additional Past Surgical History / Comment(s): EGD for gastric reflux. Excision of lipomas. bilateral cataracts, total knee., Pain clinic procedures. Past Anesthesia/Blood Transfusion Reactions: No Reported Reaction Past Psychological History: Anxiety, Depression Smoking Status: Former smoker Past Alcohol Use History: None Reported Additional Past Alcohol Use History / Comment(s): SMOKED 3 PPD. STARTED SMOKING AGE 15, QUIT 35 YEARS AGO Past Drug Use History: None Reported Additional Drug Use History / Comment(s): . - Past Family History Brother(s) Family Medical History: Congestive Heart Failure (CHF), COPD, Coronary Artery Di sease (CAD), Diabetes Mellitus Daughter(s) Additional Family Medical History / Comment(s): One from MVA Son(s) Family Medical History: Diabetes Mellitus, Hyperlipidemia, Hypertension Sister(s) Family Medical History: Cancer Mother Family Medical History: Dementia Father Family Medical History: COPD Additional Family Medical History / Comment(s): EMPHYSEMA. Medications and Allergies Home Medications Medication Instructions Recorded Confirmed Type Apixaban [Eliquis] 2.5 mg PO BID 02/14/16 03/06/19 History Losartan/Hydrochlorothiazide 1 tab PO DAILY 09/02/16 03/06/19 History [Hyzaar 100-25 Tablet] Diltiazem Cd [Cardizem CD] 180 mg PO DAILY #30 cap.er.24h 07/24/18 03/06/19 Rx Pantoprazole Sodium [Protonix] 40 mg PO BID 09/14/18 03/06/19 History metFORMIN HCL 850 mg PO HS 11/03/18 03/06/19 History HYDROcodone/APAP 7.5-325MG [[place] 1 tab PO Q8H PRN 12/15/18 03/06/19 History 7.5-325] Ferrous Sulfate [Iron (65 MG 325 mg PO BID #60 tab 12/22/18 03/06/19 Rx Elemental)] Calcium Carbonate/Vitamin D3 1 tab PO DAILY 03/06/19 03/06/19 History [Oyster Shell-D 250 mg Tablet] Dicyclomine [Bentyl] 20 mg PO QID PRN 03/06/19 03/06/19 History Allergies Allergy/AdvReac Type Severity Reaction Status Date / Time aspirin AdvReac Dyspnea,Nausea/Vomiting,Dizzy,Tingling,Warm Verified 03/06/19 18:03 sensation Physical Exam Vitals: Vital Signs Temp Pulse Resp BP Pulse Ox 03/08/19 11:10 97.8 F 64 18 176/98 96 03/08/19 08:40 79 16 03/08/19 03:51 97.9 F 79 16 163/71 94 L 03/07/19 21:00 97.1 F L 78 16 193/91 96 03/07/19 16:26 98 03/07/19 15:46 100 16 Intake and Output 03/07/19 03/08/19 03/08/19 22:59 06:59 14:59 Intake Total 350 800 Balance 350 800 Intake: Intake, IV Titration 350 800 Amount Levofloxacin 750Mg-D5w 100 Pmx 750 mg In Dextrose/ Water 1 150ml.bag @ 100 mls/hr IVPB HS [facility] Rx#: [id number] Sodium Chloride 0.9% 1, 350 600 000 ml @ 100 mls/hr IV . Q10H [facility] Rx#:[id number] metroNIDAZOLE-NS PMX 500 100 mg In Saline 1 100ml.bag @ 100 mls/hr IVPB Q8H [facility] Rx#:[id number] Other: Voiding Method Toilet Toilet Toilet # Voids 2 3 On physical examination, patient appears comfortable in no apparent distress. HEAD: Normocephalic, atraumatic. EYES: No scleral icterus. No conjunctival injection. MOUTH: No lesions, tongue midline. NECK: Trachea midline, no gross abnormalities. CHEST: Decreased air entry bilaterally. HEART: S1-S2 appreciated. ABDOMEN: Soft, obese, diffusely tender to palpation. Bowel sounds are positive. No organomegaly. No guarding or rigidity. EXTREMITIES: No pedal edema. SKIN: No rashes, no jaundice. NEUROLOGIC: Alert and oriented x3. No focal deficits. Results CBC & Chem 7: 03/08/19 07:34 03/08/19 07:34 Labs: Abnormal Lab Results - Last 24 Hours (Table) 03/07/19 03/07/19 03/08/19 Range/Units 16:58 19:55 06:58 Carbon Dioxide (22-30) mmol/L BUN (7-17) mg/dL Glucose (74-99) mg/dL POC Glucose (mg/dL) 121 H 157 H 105 H (75-99) mg/dL 03/08/19 03/08/19 Range/Units 07:34 11:38 Carbon Dioxide 33 H (22-30) mmol/L BUN 6 L (7-17) mg/dL Glucose 109 H (74-99) mg/dL POC Glucose (mg/dL) 104 H (75-99) mg/dL Microbiology - Last 24 Hours (Table) 03/06/19 18:00 Blood Culture - Preliminary Blood No Growth after [address] scan - abdomen: report reviewed (03/06/2019 with a computed tomography scan of the abdomen which showed sigmoid diverticulitis as well as pancolitis affecting the transverse and descending colon, with hepatic cysts and other findings also noted.) Assessment and Plan (1) Diverticulitis Narrative/Plan: 88-year-old female with multiple medical comorbidities including chronic abdominal pain who presented to the hospital after patient had outpatient computed tomography scan on 03/06/2019 which showed sigmoid diverticulitis as well as pancolitis affecting the transverse and descending colon, with hepatic cysts and other findings also noted. Patient denies any blood per rectum or loose stool. Currently on broad-spectrum antibiotic therapy she reports some improvement in her symptoms. She has an EGD in November 2017 but no prior colonoscopy per her recollection. Current Visit: Yes Status: Acute Code(s): K57.92 - DVTRCLI OF INTEST, PART UNSP, W/O PERF OR ABSCESS W/O BLEED SNOMED Code(s): 653829891 (2) Pancolitis Current Visit: Yes Status: Acute Code(s): K51.00 - ULCERATIVE (CHRONIC) PANCOLITIS WITHOUT COMPLICATIONS SNOMED Code(s): 633564392 (3) Abdominal pain Current Visit: No Status: Acute Code(s): R10.9 - UNSPECIFIED ABDOMINAL PAIN SNOMED Code(s): 79696764 Plan: Supportive care Clear liquid diet Advance as tolerated to low lactose/low fiber diet Continue broad-spectrum antibiotic therapy with levofloxacin and metronidazole Continue to monitor clinically and stool output Continue Bentyl as needed for abdominal pain No plans for colonoscopic evaluation at this time, however will continue to clinically monitor and reevaluate if needed Continue Protonix Thank you for allowing us to participate in the care of the patient we will continue to follow
[2019-03-08] MEDS: LEVOFLOXACIN 750MG-D5W PMX 750 MG in DEXTROSE/WATER 1 150ML.BAG IVPB SCH (22:30)
[2019-03-08] MEDS: metFORMIN 850 MG TAB PO SCH (23:35)
[2019-03-09] MEDS: metroNIDAZOLE-NS PMX 500 MG in SALINE 1 100ML.BAG IVPB SCH ×2 (02:29→12:13)
[2019-03-09] MEDS: SODIUM CHLORIDE 0.9% 1,000 ML IV SCH ×3 (05:28→17:22)
[2019-03-09 07:24] LABS: Glucose,Whole Blood 92 mg/dL (75-99)
[2019-03-09] MEDS: INSULIN ASPART (NovoLOG) 100 UNIT/ML VIAL SQ SCH ×4 (07:33→20:26)
[2019-03-09 07:34] LABS: Basophils # (A) 0.1 k/uL (0-0.2); Basophils % (A) 1 %; Eosinophils # (A) 0.1 k/uL (0-0.7); Eosinophils % (A) 1 %; HCT 38.8 % (34.0-46.0); HGB 12.9 gm/dL (11.4-16.0); Lymphocytes # (A) 2.1 k/uL (1.0-4.8); Lymphocytes % (A) 25 %; MCH 30.1 pg (25.0-35.0); MCHC 33.2 g/dL (31.0-37.0); MCV 90.8 fL (80.0-100.0); Mean Platelet Volume 7.2; Monocytes # (A) 0.4 k/uL (0-1.0); Monocytes % (A) 5 %; Neutrophils # (A) 5.6 k/uL (1.3-7.7); Neutrophils % (A) 67 %; Platelet Count 200 k/uL (150-450); RBC 4.28 m/uL (3.80-5.40); RDW 13.6 % (11.5-15.5); WBC 8.4 k/uL (3.8-10.6)
[2019-03-09 07:46] LABS: ALT 15 U/L (9-52); AST 19 U/L (14-36); African American GFR (CKD) >90 (>60 ml/min/1.73 sqM); Albumin 3.6 g/dL (3.5-5.0); Alkaline Phosphatase 42 U/L (38-126); Anion Gap 7 mmol/L; Blood Urea Nitrogen 3 mg/dL (7-17); Calcium 8.8 mg/dL (8.4-10.2); Carbon Dioxide 31 mmol/L (22-30); Chloride 102 mmol/L (98-107); Glucose 90 mg/dL (74-99); Sodium 140 mmol/L (137-145); Total Bilirubin 0.6 mg/dL (0.2-1.3); Total Protein 6.1 g/dL (6.3-8.2)
[2019-03-09] MEDS: PANTOPRAZOLE 40 MG TABLET PO SCH ×2 (07:47→17:23)
[2019-03-09] MEDS: FERROUS SULFATE 325 MG TAB PO SCH ×2 (07:48→20:29)
[2019-03-09] MEDS: HYDROcodone/APAP 7.5-325MG 1 EACH TAB PO PRN ×3 (07:48→23:00)
[2019-03-09] MEDS: APIXABAN 2.5 MG TABLET PO SCH ×2 (07:48→20:29)
[2019-03-09] MEDS: DILTIAZEM CD 180 MG CAP.ER.24H PO SCH (07:50)
[2019-03-09] MEDS: CALCIUM CARB-VIT D 250MG-125UN 1 EACH TAB PO SCH (07:50)
[2019-03-09] MEDS: LOSARTAN-HCTZ 50-12.5 MG 1 EACH TAB PO SCH (07:50)
[2019-03-09 07:52] LABS: Potassium 3.8 mmol/L (3.5-5.1)
--- NOTE | 2019-03-09 09:14 | P.PN ---
Subjective Progress Note Date: 03/09/19 This is an 88-year-old female patient who presents with complaints of abdominal pain. Patient has been following outpatient with her PCP and had a CAT scan completed showing acute sigmoid diverticulitis currently uncomplicated with no abscess or free air at bedtime. Near pancolitis in the entirety of the transverse colon and her lack haustration. Hepatic cysts and others are too small to accurately characterize although likely smaller cyst. Nonobstructing right renal calculus. She has a past medical history of A. fib in which she's on eliquis, chest pain, heart failure, diabetes mellitus, GERD, hyperlipidemia, hypertension, osteoarthritis, sleep apnea anxiety and depression. Amylase and lipase within normal limits. Patient has been started on Levaquin and Flagyl. Clear liquid diet. At this time patient denies chest pain or shortness of breath. Patient denies any abdominal this time. Patient denies any urinary burning or frequency On 03/08/19 patient is awake, alert & oriented x3 sitting up in chair. Plan of care explained in depth to patient and she verbalizes understanding. Patient reports tolerating clear liquid diet though is still experiencing nausea. Abdomen is soft, distended, hyperactive bowel sounds. She reports dizziness yesterday with movement, but is not experiencing any dizziness this morning. She states that this is not a new symptom but has her worried. At this time we will order othostatic blood pressures. Patient denies chest pain or SOB. Denies urinary burning or frequency. 03/09/2019 patient is alert oriented 3. Patient is currently resting comfo rtably in bed. Patient reports improvement with abdominal pain. Patient did report episode of nausea. Patient's diet advance to full liquid diet. Patient denies chest pain or shortness breath. Patient denies nausea vomiting or diarrhea. Patient denies any urinary burning or frequency Objective - Vital Signs Vital signs: Vital Signs Temp 97.6 F 03/09/19 04:35 Pulse 90 03/09/19 04:35 Resp 18 03/09/19 04:35 BP 156/81 03/09/19 04:35 Pulse Ox 99 03/09/19 04:35 Intake & Output 03/08/19 03/09/19 03/09/19 18:59 06:59 18:59 Intake Total 240 200 Balance 240 200 Intake: Intake, IV Titration 200 Amount Sodium Chloride 0.9% 1, 200 000 ml @ 100 mls/hr IV . Q10H [facility] Rx#:[id number] Oral 240 Other: Voiding Method Toilet Toilet # Voids 3 4 # Bowel Movements 2 - Exam Head normocephalic Neck supple Lungs clear to auscultation bilaterally no wheezing or crackles Heart rate irregular, afib rate controlled. Abdomen is soft, nontender, distended positive bowel sounds no hepatosplenomegaly Extremities no edema Neuro alert and orientated to 3. Equal strength in all four extremities, pupils equal and reactive, no facial droop. Speech clear. - Labs CBC & Chem 7: 03/09/19 07:06 03/09/19 07:06 Labs: Abnormal Lab Results - Last 24 Hours (Table) 03/08/19 03/08/19 03/09/19 Range/Units 11:38 20:31 07:06 Carbon Dioxide 31 H (22-30) mmol/L BUN 3 L (7-17) mg/dL Creatinine 0.51 L (0.52-1.04) mg/dL POC Glucose (mg/dL) 104 H 152 H (75-99) mg/dL Total Protein 6.1 L (6.3-8.2) g/dL Microbiology - Last 24 Hours (Table) 03/06/19 18:00 Blood Culture - Preliminary Blood No Growth after 48 hours Assessment and Plan Assessment: 1. Abdominal pain related to diverticulitis and pancolitis. CT of abdomen com pleted showing acute sigmoid diverticulitis currently compensated with no adjacent abscess or free at this time. Near pancolitis with the entirety of the transverse and descending colon as there is a lack of haustration. Hepatic cysts and other lesions are too small to accurately characterize although likely small cyst. Nonobstructing right renal calculus patient maintained on clear liquid diet. On Levaquin and Flagyl IV for IV antibiotics. Patient evaluated by surgical service, recommend continuing antibiotics, continue clear liquid diet. No surgical intervention at this time. Diet advanced to full liquid diet 2. History of diverticulitis. Patient was admitted in November in which she was treated with IV antibiotic and discharge 3. History of hemorrhagic bilateral renal cysts. Patient was evaluated by urology during previous admission at that time it was felt that patient has low risk for any malignancy 4. History of diabetes mellitus type 2. Home medications resumed 5. History of essential hypertension 6. History of obstructive sleep apnea 7. History of chronic atrial fibrillation anticoagulated with eliquis 8. History of vitamin D deficiency 9. Dizziness. Patient reported that this is not a new symptom, no other neurological changes noted, no changes in vision. Orthostatic blood pressures ordered to evaluate. DVT prophylaxis eliquis. GI prophylaxis Protonix I performed an examination of the patient and discussed their management with the Nurse Practitioner. I have reviewed the Nurse Practitioner's notes and agree with the documented findings and plan of care
--- NOTE | 2019-03-09 09:51 | P.PN ---
Subjective Progress Note Date: 03/09/19 CHIEF COMPLAINT: Abdominal pain HISTORY OF PRESENT ILLNESS: Patient examined this morning the bedside. She reports improvement in her abdominal pain. She also states her nausea has improved today. Reports BM this morning. Tolerating clear liquid diet. PHYSICAL EXAM: VITAL SIGNS: Reviewed. GENERAL: Well-developed in no acute distress. HEENT: No sclera icterus. Extraocular movements grossly intact. Moist buccal mucosa. Head is atraumatic, normocephalic. ABDOMEN: Soft. Obese. Nondistended. Mild pain with palpation. NEUROLOGIC: Alert and oriented. Cranial nerves II through XII grossly intact. ASSESSMENT: 1. Abdominal pain 2. Acute diverticulitis 3. Pancolitis PLAN: 1. Advance diet to full liquid. Advance as tolerated to Low Fiber 2. Continue antibiotics. Currently receiving Levaquin and Flagyl 3. No surgical intervention recommended at this time 4. Possible discharge home tomorrow. Will defer to internal medicine. Nurse practitioner note has been reviewed by physician. Signing provider agrees with the documented findings, assessment, and plan of care. Objective - Vital Signs Vital signs: Vital Signs Temp 97.6 F 03/09/19 04:35 Pulse 90 03/09/19 04:35 Resp 18 03/09/19 04:35 BP 156/81 03/09/19 04:35 Pulse Ox 99 03/09/19 04:35 Intake & Output 03/08/19 03/09/19 03/09/19 18:59 06:59 18:59 Intake Total 240 200 Balance 240 200 Intake: Intake, IV Titration 200 Amount Sodium Chloride 0.9% 1, 200 000 ml @ 100 mls/hr IV . Q10H [facility] Rx#:[id number] Oral 240 Other: Voiding Method Toilet Toilet # Voids 3 4 # Bowel Movements 2 - Labs CBC & Chem 7: 03/09/19 07:06 03/09/19 07:06 Labs: Abnormal Lab Results - Last 24 Hours (Table) 03/08/19 03/08/19 03/09/19 Range/Units 11:38 20:31 07:06 Carbon Dioxide 31 H (22-30) mmol/L BUN 3 L (7-17) mg/dL Creatinine 0.51 L (0.52-1.04) mg/dL POC Glucose (mg/dL) 104 H 152 H (75-99) mg/dL Total Protein 6.1 L (6.3-8.2) g/dL Microbiology - Last 24 Hours (Table) 03/06/19 18:00 Blood Culture - Preliminary Blood No Growth after 48 hours
[2019-03-09 11:11] LABS: Glucose,Whole Blood 102 mg/dL (75-99)
--- NOTE | 2019-03-09 12:07 | P.PN ---
Subjective Progress Note Date: 03/09/19 Principal diagnosis: abdominal pain diverticulitis 88-year-old female admitted with abdominal pain diverticulitis pancolitis. Still experiencing abdominal discomfort but improved. Tolerating full liquid diet. Afebrile. White count 8.4. PMH afib on Eliquis. Objective - Vital Signs Vital signs: Vital Signs Temp 97.6 F 03/09/19 04:35 Pulse 90 03/09/19 04:35 Resp 18 03/09/19 04:35 BP 156/81 03/09/19 04:35 Pulse Ox 99 03/09/19 04:35 Intake & Output 03/08/19 03/09/19 03/09/19 18:59 06:59 18:59 Intake Total 240 200 Balance 240 200 Intake: Intake, IV Titration 200 Amount Sodium Chloride 0.9% 1, 200 000 ml @ 100 mls/hr IV . Q10H [facility] Rx#:[id number] Oral 240 Other: Voiding Method Toilet Toilet Toilet # Voids 3 4 # Bowel Movements 2 - Exam General appearance: The patient is alert, oriented, in no acute distress. HET: Head is normocephalic and atraumatic. Pupils are equal and reactive. Oropharynx is clear without lesions. Neck: Supple without lymphadenopathy. Trachea midline. Heart: S1 S2. Regular rate and rhythm. Lungs: No crackles or wheezes are heard. Abdomen: Soft, obese, diffuse mild tenderness across mid to bilateral lower abdomen with bowel sounds. No peritoneal signs. No palpable organomegaly or masses. Extremities: Normal skin color and turgor. No cyanosis, rash, ulceration, clubbing, or edema. Radial and pedal pulses are 2/4 bilaterally. Neurological: No focal deficits. Strength and sensation are grossly intact. - Labs CBC & Chem 7: 03/09/19 07:06 03/09/19 07:06 Labs: Abnormal Lab Results - Last 24 Hours (Table) 03/08/19 03/09/19 03/09/19 Range/Units 20:31 07:06 11:09 Carbon Dioxide 31 H (22-30) mmol/L BUN 3 L (7-17) mg/dL Creatinine 0.51 L (0.52-1.04) mg/dL POC Glucose (mg/dL) 152 H 102 H (75-99) mg/dL Total Protein 6.1 L (6.3-8.2) g/dL Microbiology - Last 24 Hours (Table) 03/06/19 18:00 Blood Culture - Preliminary Blood No Growth after 48 hours Assessment and Plan (1) Diverticulitis Narrative/Plan: Acute colonic diverticulitis marquez colitis on antibiotics slow clinical improvement without fever. Current Visit: Yes Status: Acute Code(s): K57.92 - DVTRCLI OF INTEST, PART UNSP, W/O PERF OR ABSCESS W/O BLEED SNOMED Code(s): 192350784 (2) Pancolitis Current Visit: Yes Status: Acute Code(s): K51.00 - ULCERATIVE (CHRONIC) PANCOLITIS WITHOUT COMPLICATIONS SNOMED Code(s): 663582574 (3) Atrial fibrillation, chronic Current Visit: No Status: Acute Code(s): I48.2 - CHRONIC ATRIAL FIBRILLATION SNOMED Code(s): 457486210 (4) Colon, diverticulosis Current Visit: No Status: Acute Code(s): K57.30 - DVRTCLOS OF LG INT W/O PERFORATION OR ABSCESS W/O BLEEDING SNOMED Code(s): 889939527 Plan: 1. Abx. 2. Low residue diet limit low lactose. 3. Continue present medical therapy. 4. RTO 3-4 after DC. Assessment and plan of care d/w Dr. Patterson
[2019-03-09] MEDS: metroNIDAZOLE 500 MG TAB PO SCH ×3 (14:48→23:00)
[2019-03-09 17:03] LABS: Glucose,Whole Blood 120 mg/dL (75-99)
[2019-03-09 20:17] LABS: Glucose,Whole Blood 123 mg/dL (75-99)
[2019-03-09] MEDS: metFORMIN 850 MG TAB PO SCH (20:29)
[2019-03-09] MEDS: LEVOFLOXACIN 750 MG TAB PO SCH (20:30)
[2019-03-10] MEDS: SODIUM CHLORIDE 0.9% 1,000 ML IV SCH ×2 (05:43→18:05)
[2019-03-10 06:47] LABS: Basophils # (A) 0.1 k/uL (0-0.2); Basophils % (A) 1 %; Eosinophils # (A) 0.2 k/uL (0-0.7); Eosinophils % (A) 2 %; HCT 38.2 % (34.0-46.0); HGB 12.6 gm/dL (11.4-16.0); Lymphocytes # (A) 1.9 k/uL (1.0-4.8); Lymphocytes % (A) 24 %; MCH 29.4 pg (25.0-35.0); MCV 89.3 fL (80.0-100.0); Mean Platelet Volume 7.6; Monocytes # (A) 0.5 k/uL (0-1.0); Monocytes % (A) 6 %; Neutrophils # (A) 5.5 k/uL (1.3-7.7); Neutrophils % (A) 67 %; Platelet Count 189 k/uL (150-450); RBC 4.27 m/uL (3.80-5.40); RDW 14.7 % (11.5-15.5); WBC 8.2 k/uL (3.8-10.6)
[2019-03-10 07:12] LABS: Glucose,Whole Blood 133 mg/dL (75-99)
[2019-03-10] MEDS: INSULIN ASPART (NovoLOG) 100 UNIT/ML VIAL SQ SCH ×4 (07:34→21:02)
[2019-03-10] MEDS: metroNIDAZOLE 500 MG TAB PO SCH ×2 (08:06→18:04)
[2019-03-10] MEDS: FERROUS SULFATE 325 MG TAB PO SCH ×2 (08:06→21:02)
[2019-03-10] MEDS: PANTOPRAZOLE 40 MG TABLET PO SCH ×2 (08:06→16:29)
[2019-03-10] MEDS: DILTIAZEM CD 180 MG CAP.ER.24H PO SCH (08:06)
[2019-03-10] MEDS: LOSARTAN-HCTZ 50-12.5 MG 1 EACH TAB PO SCH (08:06)
[2019-03-10] MEDS: APIXABAN 2.5 MG TABLET PO SCH ×2 (08:07→21:02)
[2019-03-10] MEDS: CALCIUM CARB-VIT D 250MG-125UN 1 EACH TAB PO SCH (08:07)
[2019-03-10 08:39] LABS: ALT 24 U/L (9-52); AST 19 U/L (14-36); African American GFR (CKD) >90 (>60 ml/min/1.73 sqM); Albumin 3.4 g/dL (3.5-5.0); Alkaline Phosphatase 43 U/L (38-126); Anion Gap 8 mmol/L; Blood Urea Nitrogen 6 mg/dL (7-17); Calcium 8.8 mg/dL (8.4-10.2); Carbon Dioxide 34 mmol/L (22-30); Chloride 99 mmol/L (98-107); Glucose 113 mg/dL (74-99); Potassium 3.6 mmol/L (3.5-5.1); Sodium 141 mmol/L (137-145); Total Bilirubin 0.4 mg/dL (0.2-1.3); Total Protein 5.8 g/dL (6.3-8.2)
[2019-03-10] MEDS: HYDROcodone/APAP 7.5-325MG 1 EACH TAB PO PRN ×2 (09:13→16:29)
--- NOTE | 2019-03-10 10:09 | P.PN ---
Subjective Progress Note Date: 03/10/19 This is an 88-year-old female patient who presents with complaints of abdominal pain. Patient has been following outpatient with her PCP and had a CAT scan completed showing acute sigmoid diverticulitis currently uncomplicated with no abscess or free air at bedtime. Near pancolitis in the entirety of the transverse colon and her lack haustration. Hepatic cysts and others are too small to accurately characterize although likely smaller cyst. Nonobstructing right renal calculus. She has a past medical history of A. fib in which she's on eliquis, chest pain, heart failure, diabetes mellitus, GERD, hyperlipidemia, hypertension, osteoarthritis, sleep apnea anxiety and depression. Amylase and lipase within normal limits. Patient has been started on Levaquin and Flagyl. Clear liquid diet. At this time patient denies chest pain or shortness of breath. Patient denies any abdominal this time. Patient denies any urinary burning or frequency On 03/08/19 patient is awake, alert & oriented x3 sitting up in chair. Plan of care explained in depth to patient and she verbalizes understanding. Patient reports tolerating clear liquid diet though is still experiencing nausea. Abdomen is soft, distended, hyperactive bowel sounds. She reports dizziness yesterday with movement, but is not experiencing any dizziness this morning. She states that this is not a new symptom but has her worried. At this time we will order othostatic blood pressures. Patient denies chest pain or SOB. Denies urinary burning or frequency. 03/09/2019 patient is alert oriented 3. Patient is currently resting comf ortably in bed. Patient reports improvement with abdominal pain. Patient did report episode of nausea. Patient's diet advance to full liquid diet. Patient denies chest pain or shortness breath. Patient denies nausea vomiting or diarrhea. Patient denies any urinary burning or frequency On 03/10/2019 patient was seen and examined on the medical floor she is alert and oriented 3 in no apparent distress she is still complaining of abdominal pain she had 2 soft bowel movements today there is no fever or chills no headache or dizziness no chest pain no shortness of breath no cough no nausea or vomiting no burning with urination no frequency or urgency and no hematuria. Objective - Vital Signs Vital signs: Vital Signs Temp 97.8 F 03/10/19 04:33 Pulse 85 03/10/19 04:33 Resp 18 03/10/19 04:33 BP 138/80 03/10/19 04:33 Pulse Ox 99 03/10/19 04:33 Intake & Output 03/09/19 03/10/19 03/10/19 18:59 06:59 18:59 Intake Total 800 Balance 800 Intake: Intake, IV Titration 800 Amount Sodium Chloride 0.9% 1, 700 000 ml @ 100 mls/hr IV . Q10H [facility] Rx#:[id number] metroNIDAZOLE-NS PMX 500 100 mg In Saline 1 100ml.bag @ 100 mls/hr IVPB Q8H [facility] Rx#:[id number] Other: Voiding Method Toilet Toilet # Voids 4 - Exam In general patient is alert and oriented 3 in no apparent distress Head normocephalic and atraumatic Neck supple no JVD no goiter Lungs clear to auscultation bilaterally no wheezing or crackles Heart rate irregular, afib rate controlled. Abdomen is soft, nontender, distended positive bowel sounds no hepatosplenomegaly Extremities no edema no cyanosis or clubbing Neuro no gross focal neurological deficits. Equal strength in all four extremities, pupils equal and reactive, no facial droop. Speech clear. - Labs CBC & Chem 7: 03/10/19 06:15 03/10/19 06:15 Labs: Abnormal Lab Results - Last 24 Hours (Table) 03/09/19 03/09/19 03/09/19 Range/Units 11:09 17:01 20:16 Carbon Dioxide (22-30) mmol/L BUN (7-17) mg/dL Glucose (74-99) mg/dL POC Glucose (mg/dL) 102 H 120 H 123 H (75-99) mg/dL Total Protein (6.3-8.2) g/dL Albumin (3.5-5.0) g/dL 03/10/19 03/10/19 Range/Units 06:15 07:11 Carbon Dioxide 34 H (22-30) mmol/L BUN 6 L (7-17) mg/dL Glucose 113 H (74-99) mg/dL POC Glucose (mg/dL) 133 H (75-99) mg/dL Total Protein 5.8 L (6.3-8.2) g/dL Albumin 3.4 L (3.5-5.0) g/dL Microbiology - Last 24 Hours (Table) 03/06/19 18:00 Blood Culture - Preliminary Blood No Growth after 72 hours Assessment and Plan Plan: 1. Abdominal pain related to diverticulitis and pancolitis. CT of abdomen completed showing acute sigmoid diverticulitis currently compensated with no adjacent abscess or free at this time. Near pancolitis with the entirety of the transverse and descending colon as there is a lack of haustration. Hepatic cysts and other lesions are too small to accurately characterize although likely small cyst. Nonobstructing right renal calculus patient maintained on clear liquid diet. On Levaquin and Flagyl IV for IV antibiotics. Patient evaluated by surgical service, recommend continuing antibiotics, continue clear liquid diet. No surgical intervention at this time. Diet advanced to full liquid diet 2. History of diverticulitis. Patient was admitted in November in which she was treated with IV antibiotic and discharge 3. History of hemorrhagic bilateral renal cysts. Patient was evaluated by urology during previous admission at that time it was felt that patient has low risk for any malignancy 4. History of diabetes mellitus type 2. Home medications resumed 5. History of essential hypertension 6. History of obstructive sleep apnea 7. History of chronic atrial fibrillation anticoagulated with eliquis 8. History of vitamin D deficiency 9. Dizziness. Patient reported that this is not a new symptom, no other neurological changes noted, no changes in vision. Orthostatic blood pressures ordered to evaluate. DVT prophylaxis eliquis. GI prophylaxis Protonix consult physical therapy, increase ambulation Possible discharge in the next 1-2 days
[2019-03-10 11:10] LABS: Glucose,Whole Blood 123 mg/dL (75-99)
--- NOTE | 2019-03-10 11:40 | PN ---
PROGRESS NOTE DATE OF SERVICE: 03/10/2019 Patient is an 88-year-old pleasant white female admitted to the hospital with uncomplicated acute sigmoid diverticulitis for which she is presently on IV Levaquin and Flagyl and she is doing much better. She complains of minimal abdominal pain in the left lower quadrant area. She had 2 soft bowel movements today. No nausea or vomiting. She was started on clear liquid diet, tolerating well. Denies any new symptoms. PHYSICAL EXAMINATION: On physical examination, she appears comfortable, not in distress. Vital signs are stable. Blood pressure is 128/73, pulse is 76, temperature 97.7. HEENT examination unremarkable. Conjunctivae pink. Sclerae anicteric. Oral cavity, no lesions. NECK: No JVD or lymph node enlargement. CHEST: Clear to auscultation. HEART: Regular rate and rhythm. ABDOMEN: Soft with very minimal tenderness in the left lower quadrant area. Rest of the abdomen was benign. Bowel sounds are positive. No organomegaly. EXTREMITIES: No pedal edema. SKIN: No rashes. NEURO: Alert and oriented x3. No focal deficits. LABS: WBC 8.2, hemoglobin 12.6, platelets 186. Basic metabolic panel is within normal limits. IMPRESSION: 1. Uncomplicated sigmoid diverticulitis on broad-spectrum antibiotics with Levaquin and Flagyl and doing much better. Her abdominal pain has almost resolved. She is on a clear liquid diet, tolerating well. 2. History of diabetes mellitus. 3. Hypertension. 4. Chronic obstructive pulmonary disease/sleep apnea. RECOMMENDATIONS: 1. Continue with broad-spectrum antibiotics. 2. Advance diet as tolerated to a low-fiber diet. 3. If she continues to do well, her medications can be changed to oral antibiotics and she can be discharged home in the next 24 to 48 hours. Thank you for this consultation. We will follow her closely during her hospital stay. MMODL / IJN: [id number] /
--- NOTE | 2019-03-10 14:34 | P.PN ---
Subjective Progress Note Date: 03/10/19 CHIEF COMPLAINT: Colitis HISTORY OF PRESENT ILLNESS: The patient is a 88-year-old female admitted for pain colitis with diverticulitis. She reports moderate improvement of her generalized abdominal pain as compared to yesterday. She is sitting up in the chair. ROS: No reports of nausea and vomiting. No bowel movements. No fevers or chills. No new chest pain. No productive sputum PHYSICAL EXAM: VITAL SIGNS: Reviewed CONSTITUTIONAL: Well developed and in no acute distress. EYES: Conjuctivae without sclera icterus. Extraocular movements grossly intact. HEAD, EARS, NOSE, THROAT: Moist buccal mucosa. Head is atraumatic, normocephalic. Hears conversational speech. No nasal drainage. NECK: Supple. No thyroidomegaly. RESPIRATORY: Non-labored respirations and equal bilateral excursions. CARDIOVASCULAR: Palpable 2+ radial pulses. Regular rate. Regular rhythm. ABDOMEN: No peritonitis. Generalized tenderness. MUSCULOSKELETAL: No gross deformity of the lower extremities noted. No c lubbing. No cyanosis. SKIN: Good skin turgor. Well perfused. NEUROLOGIC: Cranial nerves I through XII grossly intact. No focal or lateralizing signs. PSYCH: Appropriate affect. Alert and oriented to person, place and time. CLINCAL LABS: White blood cell count normal. ASSESSMENT: 1. Pancolitis with diverticulitis PLAN: 1. Low fiber diet in the interim 2. Recommend medical management for colitis 3. Stable for discharge once abdominal pain is resolved. Objective - Vital Signs Vital signs: Vital Signs Temp 97.8 F 03/10/19 04:33 Pulse 85 03/10/19 08:30 Resp 18 03/10/19 08:30 BP 138/80 03/10/19 04:33 Pulse Ox 99 03/10/19 04:33 Intake & Output 03/09/19 03/10/19 03/10/19 18:59 06:59 18:59 Intake Total 800 Balance 800 Intake: Intake, IV Titration 800 Amount Sodium Chloride 0.9% 1, 700 000 ml @ 100 mls/hr IV . Q10H [facility] Rx#:[id number] metroNIDAZOLE-NS PMX 500 100 mg In Saline 1 100ml.bag @ 100 mls/hr IVPB Q8H [facility] Rx#:[id number] Other: Voiding Method Toilet Toilet Toilet # Voids 4 - Labs CBC & Chem 7: 03/10/19 06:15 03/10/19 06:15 Labs: Abnormal Lab Results - Last 24 Hours (Table) 03/09/19 03/09/19 03/10/19 Range/Units 17:01 20:16 06:15 Carbon Dioxide 34 H (22-30) mmol/L BUN 6 L (7-17) mg/dL Glucose 113 H (74-99) mg/dL POC Glucose (mg/dL) 120 H 123 H (75-99) mg/dL Total Protein 5.8 L (6.3-8.2) g/dL Albumin 3.4 L (3.5-5.0) g/dL 03/10/19 03/10/19 Range/Units 07:11 11:09 Carbon Dioxide (22-30) mmol/L BUN (7-17) mg/dL Glucose (74-99) mg/dL POC Glucose (mg/dL) 133 H 123 H (75-99) mg/dL Total Protein (6.3-8.2) g/dL Albumin (3.5-5.0) g/dL Microbiology - Last 24 Hours (Table) 03/06/19 18:00 Blood Culture - Preliminary Blood No Growth after 72 hours Assessment and Plan (1) Diverticulitis Current Visit: Yes Status: Acute Code(s): K57.92 - DVTRCLI OF INTEST, PART UNSP, W/O PERF OR ABSCESS W/O BLEED SNOMED Code(s): 597875246 (2) Pancolitis Current Visit: Yes Status: Acute Code(s): K51.00 - ULCERATIVE (CHRONIC) PANCOLITIS WITHOUT COMPLICATIONS SNOMED Code(s): 940217771
[2019-03-10 17:13] LABS: Glucose,Whole Blood 132 mg/dL (75-99)
[2019-03-10 20:57] LABS: Glucose,Whole Blood 130 mg/dL (75-99)
[2019-03-10] MEDS: LEVOFLOXACIN 750 MG TAB PO SCH (21:02)
[2019-03-10] MEDS: metFORMIN 850 MG TAB PO SCH (21:56)
[2019-03-11] MEDS: metroNIDAZOLE 500 MG TAB PO SCH ×3 (00:57→15:17)
[2019-03-11] MEDS: HYDROcodone/APAP 7.5-325MG 1 EACH TAB PO PRN ×3 (00:57→17:38)
[2019-03-11] MEDS: SODIUM CHLORIDE 0.9% 1,000 ML IV SCH ×2 (05:08→09:11)
[2019-03-11 07:16] LABS: Glucose,Whole Blood 104 mg/dL (75-99)
[2019-03-11 07:45] LABS: Basophils # (A) 0.1 k/uL (0-0.2); Basophils % (A) 1 %; Eosinophils # (A) 0.2 k/uL (0-0.7); Eosinophils % (A) 2 %; HCT 37.8 % (34.0-46.0); HGB 12.3 gm/dL (11.4-16.0); Lymphocytes # (A) 1.7 k/uL (1.0-4.8); Lymphocytes % (A) 23 %; MCH 29.2 pg (25.0-35.0); MCHC 32.6 g/dL (31.0-37.0); MCV 89.6 fL (80.0-100.0); Mean Platelet Volume 7.3; Monocytes # (A) 0.4 k/uL (0-1.0); Monocytes % (A) 5 %; Neutrophils # (A) 5.2 k/uL (1.3-7.7); Neutrophils % (A) 68 %; Platelet Count 201 k/uL (150-450); RBC 4.22 m/uL (3.80-5.40); RDW 14.9 % (11.5-15.5); WBC 7.7 k/uL (3.8-10.6)
[2019-03-11 08:10] LABS: ALT 25 U/L (9-52); AST 21 U/L (14-36); African American GFR (CKD) >90 (>60 ml/min/1.73 sqM); Albumin 3.6 g/dL (3.5-5.0); Alkaline Phosphatase 49 U/L (38-126); Anion Gap 5 mmol/L; Blood Urea Nitrogen 5 mg/dL (7-17); Carbon Dioxide 40 mmol/L (22-30); Chloride 97 mmol/L (98-107); Glucose 107 mg/dL (74-99); Potassium 3.5 mmol/L (3.5-5.1); Sodium 142 mmol/L (137-145); Total Bilirubin 0.5 mg/dL (0.2-1.3); Total Protein 6.1 g/dL (6.3-8.2)
[2019-03-11] MEDS: INSULIN ASPART (NovoLOG) 100 UNIT/ML VIAL SQ SCH ×4 (08:29→21:11)
[2019-03-11] MEDS: CALCIUM CARB-VIT D 250MG-125UN 1 EACH TAB PO SCH (09:10)
[2019-03-11] MEDS: LOSARTAN-HCTZ 50-12.5 MG 1 EACH TAB PO SCH (09:10)
[2019-03-11] MEDS: APIXABAN 2.5 MG TABLET PO SCH ×2 (09:10→21:16)
[2019-03-11] MEDS: DILTIAZEM CD 180 MG CAP.ER.24H PO SCH (09:10)
[2019-03-11] MEDS: FERROUS SULFATE 325 MG TAB PO SCH ×2 (09:10→21:16)
[2019-03-11] MEDS: PANTOPRAZOLE 40 MG TABLET PO SCH ×2 (09:10→15:17)
[2019-03-11 11:17] LABS: Glucose,Whole Blood 112 mg/dL (75-99)
[2019-03-11] MEDS: KETOROLAC 30 MG/ML 1 ML VIAL IVP PRN (11:18)
--- NOTE | 2019-03-11 13:50 | PN ---
PROGRESS NOTE DATE OF SERVICE: 03/11/2019 Patient is an 88-year-old pleasant white female admitted to the hospital with sigmoid diverticulitis. She is on Levaquin and Flagyl and was doing much better yesterday but this morning started complaining of some left lower quadrant abdominal pain. No nausea, vomiting. No fever, chills, night sweats. She remains on broad-spectrum antibiotics but the Flagyl and Levaquin were changed to oral medications yesterday. PHYSICAL EXAMINATION: She appears comfortable, no apparent distress. VITAL SIGNS: Stable. Blood pressure is 147/80, pulse rate 77, temperature 97. HEENT examination unremarkable. Conjunctivae pink. Sclerae anicteric. Oral cavity no lesions. NECK: No JVD. No lymph node enlargement. CHEST: Clear to auscultation. HEART: Regular rate and rhythm. ABDOMEN: Soft. Bowel sounds are positive. No organomegaly. There is mild tenderness in the left lower quadrant area. ABDOMEN: Obese. EXTREMITIES: Trace pedal edema. SKIN: No rashes. NEUROLOGIC: Alert and oriented x3. No focal deficits. LABS: From today WBC 7.7, hemoglobin 12.3, platelets are normal. Basic metabolic panel is within normal limits. IMPRESSION: Acute sigmoid diverticulitis on day 4 of antibiotics, gradually improving. She did have some pain this morning, but clinically she appears stable. RECOMMENDATIONS: 1. Continue with Flagyl and Levaquin. 2. Advance diet as tolerated. 3. Hopefully, she can be discharged home tomorrow. Thank you for this consultation. MMODL / IJN: [id number] /
--- NOTE | 2019-03-11 13:53 | P.PN ---
Subjective Progress Note Date: 03/11/19 CHIEF COMPLAINT: Colitis HISTORY OF PRESENT ILLNESS: The patient is a 88-year-old female admitted for pain colitis with diverticulitis. She reports intermittent abdominal cramping and feels worse than yesterday. Her main concern includes moderate swelling of her feet and legs. Her family is at bedside. ROS: No reports of nausea and vomiting. No fevers or chills. No new chest pain. No productive sputum PHYSICAL EXAM: VITAL SIGNS: Reviewed CONSTITUTIONAL: Well developed and in no acute distress. EYES: Conjuctivae without sclera icterus. Extraocular movements grossly intact. HEAD, EARS, NOSE, THROAT: Moist buccal mucosa. Head is atraumatic, normocephalic. Hears conversational speech. No nasal drainage. NECK: Supple. No thyroidomegaly. RESPIRATORY: Non-labored respirations and equal bilateral excursions. CARDIOVASCULAR: Palpable 2+ radial pulses. Regular rate. Regular rhythm. ABDOMEN: Mild distension. Generalized tenderness. MUSCULOSKELETAL: No gross deformity of the lower extremities noted. No clubbing. No cyanosis. 2+ pitting edema pre-tibial. SKIN: Good skin turgor. Well perfused. NEUROLOGIC: Cranial nerves I through XII grossly intact. No focal or lateralizing signs. PSYCH: Appropriate affect. Alert and oriented to person, place and time. CLINCAL LABS: White blood cell count normal. ASSESSMENT: 1. Pancolitis with diverticulitis PLAN: 1. Her abdominal pain is worse with cramping. 2. May benefit from medications from cramping. Objective - Vital Signs Vital signs: Vital Signs Temp 97.6 F 03/11/19 04:49 Pulse 101 H 03/11/19 08:35 Resp 20 03/11/19 08:35 BP 137/81 03/11/19 04:49 Pulse Ox 99 03/11/19 04:49 Intake & Output 03/10/19 03/11/19 03/11/19 18:59 06:59 18:59 Intake Total 240 Balance 240 Intake: Oral 240 Other: Voiding Method Toilet Toilet Toilet # Voids 3 4 - Labs CBC & Chem 7: 03/11/19 07:20 03/11/19 07:20 Labs: Abnormal Lab Results - Last 24 Hours (Table) 03/10/19 03/10/19 03/10/19 Range/Units 11:09 17:11 20:55 Chloride (98-107) mmol/L Carbon Dioxide (22-30) mmol/L BUN (7-17) mg/dL Glucose (74-99) mg/dL POC Glucose (mg/dL) 123 H 132 H 130 H (75-99) mg/dL Total Protein (6.3-8.2) g/dL 03/11/19 03/11/19 Range/Units 07:15 07:20 Chloride 97 L (98-107) mmol/L Carbon Dioxide 40 H (22-30) mmol/L BUN 5 L (7-17) mg/dL Glucose 107 H (74-99) mg/dL POC Glucose (mg/dL) 104 H (75-99) mg/dL Total Protein 6.1 L (6.3-8.2) g/dL Microbiology - Last 24 Hours (Table) 03/06/19 18:00 Blood Culture - Preliminary Blood No Growth after 96 hours Assessment and Plan (1) Diverticulitis Current Visit: Yes Status: Acute Code(s): K57.92 - DVTRCLI OF INTEST, PART UNSP, W/O PERF OR ABSCESS W/O BLEED SNOMED Code(s): 553387835 (2) Pancolitis Current Visit: Yes Status: Acute Code(s): K51.00 - ULCERATIVE (CHRONIC) PANCOLITIS WITHOUT COMPLICATIONS SNOMED Code(s): 269573564
[2019-03-11] MEDS: DICYCLOMINE 10 MG CAP PO SCH ×3 (15:17→21:16)
[2019-03-11] MEDS ORDERED: FUROSEMIDE 10 MG/ML 2 ML VIAL IV ONE (15:35)
--- NOTE | 2019-03-11 15:37 | P.PN ---
Subjective Progress Note Date: 03/11/19 This is an 88-year-old female patient who presents with complaints of abdominal pain. Patient has been following outpatient with her PCP and had a CAT scan completed showing acute sigmoid diverticulitis currently uncomplicated with no abscess or free air at bedtime. Near pancolitis in the entirety of the transverse colon and her lack haustration. Hepatic cysts and others are too small to accurately characterize although likely smaller cyst. Nonobstructing right renal calculus. She has a past medical history of A. fib in which she's on eliquis, chest pain, heart failure, diabetes mellitus, GERD, hyperlipidemia, hypertension, osteoarthritis, sleep apnea anxiety and depression. Amylase and lipase within normal limits. Patient has been started on Levaquin and Flagyl. Clear liquid diet. At this time patient denies chest pain or shortness of breath. Patient denies any abdominal this time. Patient denies any urinary burning or frequency On 03/08/19 patient is awake, alert & oriented x3 sitting up in chair. Plan of care explained in depth to patient and she verbalizes understanding. Patient reports tolerating clear liquid diet though is still experiencing nausea. Abdomen is soft, distended, hyperactive bowel sounds. She reports dizziness yesterday with movement, but is not experiencing any dizziness this morning. She states that this is not a new symptom but has her worried. At this time we will order othostatic blood pressures. Patient denies chest pain or SOB. Denies urinary burning or frequency. 03/09/2019 patient is alert oriented 3. Patient is currently resting comf ortably in bed. Patient reports improvement with abdominal pain. Patient did report episode of nausea. Patient's diet advance to full liquid diet. Patient denies chest pain or shortness breath. Patient denies nausea vomiting or diarrhea. Patient denies any urinary burning or frequency On 03/10/2019 patient was seen and examined on the medical floor she is alert and oriented 3 in no apparent distress she is still complaining of abdominal pain she had 2 soft bowel movements today there is no fever or chills no headache or dizziness no chest pain no shortness of breath no cough no nausea or vomiting no burning with urination no frequency or urgency and no hematuria. On 03/11/2019 patient was seen and examined on the medical floor complaining of epigastric pain, she is also complaining of worsening lower extremity edema, otherwise she denies any complaints there is no fever or chills no headache or dizziness no chest pain no shortness of breath no cough no nausea or vomiting, no diarrhea no burning with urination no frequency or urgency no hematuria, no change in vision speech or gait weakness or numbness in any of her extremities. Objective - Vital Signs Vital signs: Vital Signs Temp 97.5 F L 03/11/19 11:56 Pulse 78 03/11/19 11:56 Resp 16 03/11/19 11:56 BP 159/84 03/11/19 11:56 Pulse Ox 99 03/11/19 11:56 Intake & Output 03/10/19 03/11/19 03/11/19 18:59 06:59 18:59 Intake Total 240 240 Balance 240 240 Intake: Intake, IV Titration 240 Amount Sodium Chloride 0.9% 1, 240 000 ml @ 100 mls/hr IV . Q10H [facility] Rx#:[id number] Oral 240 Other: Voiding Method Toilet Toilet Toilet # Voids 3 4 3 # Bowel Movements 2 - Exam In general patient is alert and oriented 3 in no apparent distress Head normocephalic and atraumatic Neck supple no JVD no goiter Lungs clear to auscultation bilaterally no wheezing or crackles Heart rate irregular, afib rate controlled. Abdomen is soft, nontender, distended positive bowel sounds no hepatosplenomegaly Extremities 1+ edema no cyanosis or clubbing Neuro no gross focal neurological deficits. Equal strength in all four extremities, pupils equal and reactive, no facial droop. Speech clear. - Labs CBC & Chem 7: 03/11/19 07:20 03/11/19 07:20 Labs: Abnormal Lab Results - Last 24 Hours (Table) 03/10/19 03/10/19 03/11/19 Range/Units 17:11 20:55 07:15 Chloride (98-107) mmol/L Carbon Dioxide (22-30) mmol/L BUN (7-17) mg/dL Glucose (74-99) mg/dL POC Glucose (mg/dL) 132 H 130 H 104 H (75-99) mg/dL Total Protein (6.3-8.2) g/dL 03/11/19 03/11/19 Range/Units 07:20 11:15 Chloride 97 L (98-107) mmol/L Carbon Dioxide 40 H (22-30) mmol/L BUN 5 L (7-17) mg/dL Glucose 107 H (74-99) mg/dL POC Glucose (mg/dL) 112 H (75-99) mg/dL Total Protein 6.1 L (6.3-8.2) g/dL Microbiology - Last 24 Hours (Table) 03/06/19 18:00 Blood Culture - Preliminary Blood No Growth after 96 hours Assessment and Plan Plan: 1. Abdominal pain related to diverticulitis and pancolitis. CT of abdomen completed showing acute sigmoid diverticulitis currently compensated with no adjacent abscess or free at this time. Near pancolitis with the entirety of the transverse and descending colon as there is a lack of haustration. Hepatic cysts and other lesions are too small to accurately characterize although likely small cyst. Nonobstructing right renal calculus patient maintained on clear liquid diet. On Levaquin and Flagyl IV for IV antibiotics. Patient evaluated by surgical service, recommend continuing antibiotics, continue clear liquid diet. No surgical intervention at this time. Diet advanced to full liquid diet 2. History of diverticulitis. Patient was admitted in November in which she was treated with IV antibiotic and discharge 3. History of hemorrhagic bilateral renal cysts. Patient was evaluated by urology during previous admission at that time it was felt that patient has low risk for any malignancy 4. History of diabetes mellitus type 2. Home medications resumed 5. History of essential hypertension 6. History of obstructive sleep apnea 7. History of chronic atrial fibrillation anticoagulated with eliquis 8. History of vitamin D deficiency 9. Dizziness. Patient reported that this is not a new symptom, no other neurological changes noted, no changes in vision. Orthostatic blood pressures ordered to evaluate. 9. Lower extremity edema likely related to IV fluid, IV fluids were stopped and patient given Lasix 20 mg IV 1 dose DVT prophylaxis eliquis. GI prophylaxis Protonix consult physical therapy, increase ambulation Possible discharge in the next 1-2 days
[2019-03-11 18:06] LABS: Glucose,Whole Blood 149 mg/dL (75-99)
[2019-03-11 20:12] LABS: Glucose,Whole Blood 131 mg/dL (75-99)
[2019-03-11] MEDS: metFORMIN 850 MG TAB PO SCH (21:16)
[2019-03-11] MEDS: LEVOFLOXACIN 750 MG TAB PO SCH (21:16)
[2019-03-11] MEDS: metroNIDAZOLE-NS PMX 500 MG in SALINE 1 100ML.BAG IVPB SCH (23:12)
[2019-03-12] MEDS: HYDROcodone/APAP 7.5-325MG 1 EACH TAB PO PRN ×2 (03:30→14:50)
[2019-03-12 05:12] VITALS: PULSE 83
[2019-03-12 07:15] LABS: Glucose,Whole Blood 99 mg/dL (75-99)
[2019-03-12] MEDS: INSULIN ASPART (NovoLOG) 100 UNIT/ML VIAL SQ SCH ×2 (07:20→11:19)
[2019-03-12 07:40] LABS: Basophils # (A) 0.1 k/uL (0-0.2); Basophils % (A) 1 %; Eosinophils # (A) 0.1 k/uL (0-0.7); Eosinophils % (A) 2 %; HCT 36.5 % (34.0-46.0); Lymphocytes # (A) 2.1 k/uL (1.0-4.8); Lymphocytes % (A) 24 %; MCH 29.8 pg (25.0-35.0); MCHC 32.9 g/dL (31.0-37.0); MCV 90.4 fL (80.0-100.0); Mean Platelet Volume 7.3; Monocytes # (A) 0.4 k/uL (0-1.0); Monocytes % (A) 5 %; Neutrophils # (A) 5.7 k/uL (1.3-7.7); Neutrophils % (A) 67 %; Platelet Count 171 k/uL (150-450); RBC 4.04 m/uL (3.80-5.40); RDW 15.1 % (11.5-15.5); WBC 8.5 k/uL (3.8-10.6)
[2019-03-12 07:50] LABS: ALT 22 U/L (9-52); AST 26 U/L (14-36); African American GFR (CKD) >90 (>60 ml/min/1.73 sqM); Albumin 3.4 g/dL (3.5-5.0); Alkaline Phosphatase 44 U/L (38-126); Anion Gap 6 mmol/L; Blood Urea Nitrogen 9 mg/dL (7-17); Calcium 8.7 mg/dL (8.4-10.2); Carbon Dioxide 39 mmol/L (22-30); Chloride 95 mmol/L (98-107); Glucose 105 mg/dL (74-99); Potassium 3.7 mmol/L (3.5-5.1); Sodium 140 mmol/L (137-145); Total Bilirubin 0.5 mg/dL (0.2-1.3); Total Protein 5.9 g/dL (6.3-8.2)
[2019-03-12] MEDS: APIXABAN 2.5 MG TABLET PO SCH (08:09)
[2019-03-12] MEDS: DICYCLOMINE 10 MG CAP PO SCH ×2 (08:09→11:41)
[2019-03-12] MEDS: CALCIUM CARB-VIT D 250MG-125UN 1 EACH TAB PO SCH (08:09)
[2019-03-12] MEDS: PANTOPRAZOLE 40 MG TABLET PO SCH (08:09)
[2019-03-12] MEDS: FERROUS SULFATE 325 MG TAB PO SCH (08:09)
[2019-03-12] MEDS: DILTIAZEM CD 180 MG CAP.ER.24H PO SCH (08:09)
[2019-03-12] MEDS: LOSARTAN-HCTZ 50-12.5 MG 1 EACH TAB PO SCH (08:09)
[2019-03-12] MEDS: metroNIDAZOLE-NS PMX 500 MG in SALINE 1 100ML.BAG IVPB SCH (08:09)
[2019-03-12 11:13] LABS: Glucose,Whole Blood 116 mg/dL (75-99)
--- NOTE | 2019-03-12 11:15 | P.PN ---
Subjective Progress Note Date: 03/12/19 CHIEF COMPLAINT: Abdominal pain HISTORY OF PRESENT ILLNESS: Patient examined this morning the bedside. She reports improvement in her abdominal pain. Denies nausea or vomiting. Bentyl was started yesterday and patient believes that is helping her abdominal pain. She is passing flatus. Denies BM today. WBC 8.5. Vital signs stable. Afebrile. PHYSICAL EXAM: VITAL SIGNS: Reviewed. GENERAL: Well-developed in no acute distress. HEENT: No sclera icterus. Extraocular movements grossly intact. Moist buccal mucosa. Head is atraumatic, normocephalic. ABDOMEN: Soft. Obese. Nondistended. Mild pain with palpation. NEUROLOGIC: Alert and oriented. Cranial nerves II through XII grossly intact. ASSESSMENT: 1. Abdominal pain 2. Acute diverticulitis 3. Pancolitis PLAN: 1. Continue current diet 2. Continue antibiotics. Currently receiving Levaquin and Flagyl 3. No surgical intervention recommended at this time 4. Continue Bentyl 5. Discharge per medicine Nurse practitioner note has been reviewed by physician. Signing provider agrees with the documented findings, assessment, and plan of care. Objective - Vital Signs Vital signs: Vital Signs Temp 97.8 F 03/12/19 05:00 Pulse 83 03/12/19 05:00 Resp 18 03/12/19 05:00 BP 125/80 03/12/19 05:00 Pulse Ox 100 03/12/19 05:00 Intake & Output 03/11/19 03/12/19 03/12/19 18:59 06:59 18:59 Intake Total 240 Balance 240 Intake: Intake, IV Titration 240 Amount Sodium Chloride 0.9% 1, 240 000 ml @ 100 mls/hr IV . Q10H [facility] Rx#:[id number] Other: Voiding Method Toilet Toilet # Voids 3 3 # Bowel Movements 2 - Labs CBC & Chem 7: 03/12/19 07:15 03/12/19 07:15 Labs: Abnormal Lab Results - Last 24 Hours (Table) 03/11/19 03/11/19 03/11/19 Range/Units 11:15 17:06 20:11 Chloride (98-107) mmol/L Carbon Dioxide (22-30) mmol/L Glucose (74-99) mg/dL POC Glucose (mg/dL) 112 H 149 H 131 H (75-99) mg/dL Total Protein (6.3-8.2) g/dL Albumin (3.5-5.0) g/dL 03/12/19 Range/Units 07:15 Chloride 95 L (98-107) mmol/L Carbon Dioxide 39 H (22-30) mmol/L Glucose 105 H (74-99) mg/dL POC Glucose (mg/dL) (75-99) mg/dL Total Protein 5.9 L (6.3-8.2) g/dL Albumin 3.4 L (3.5-5.0) g/dL Microbiology - Last 24 Hours (Table) 03/06/19 18:00 Blood Culture - Preliminary Blood No Growth after 120 hours
[2019-03-12 12:24] VITALS: BP 156/91; RESP 16; TEMP 97.7
--- NOTE | 2019-03-12 13:20 | P.DS ---
Providers Date of admission: 03/06/19 20:40 Expected date of discharge: 03/12/19 Attending physician: Kareem Issa Consults: 03/07/19 10:49 Consult Physician Routine Consulting Provider: Dawson Dickey Consult Reason/Comments: Diverticulitis and pancolitis Do you want consulting provider notified?: Yes 03/07/19 10:50 Consult Physician Routine Consulting Provider: Altaf Cox Consult Reason/Comments: Diverticulitis pancolitis Do you want consulting provider notified?: Yes Primary care physician: Kareem Issa [facility] Course: Discharge diagnoses 1. Abdominal pain related to diverticulitis and pancolitis. CT of abdomen completed showing acute sigmoid diverticulitis currently compensated with no adjacent abscess or free at this time. Near pancolitis with the entirety of the transverse and descending colon as there is a lack of haustration. Hepatic cysts and other lesions are too small to accurately characterize although likely small cyst. Nonobstructing right renal calculus patient maintained on clear liquid diet. On Levaquin and Flagyl IV for IV antibiotics. Patient evaluated by surgical service, recommend continuing antibiotics, continue clear liquid diet. No surgical intervention at this time. Maintained on low fiber diet has been tolerating. Patient has been cleared for discharge from surgical services and GI services. Patient will be discharged on Levaquin due to intolerance to oral Flagyl. 2. History of diverticulitis. Patient was admitted in November in which she was treated with IV antibiotic and discharge 3. History of hemorrhagic bilateral renal cysts. Patient was evaluated by urology during previous admission at that time it was felt that patient has low risk for any malignancy 4. History of diabetes mellitus type 2. Home medications resumed 5. History of essential hypertension 6. History of obstructive sleep apnea 7. History of chronic atrial fibrillation anticoagulated with eliquis 8. History of vitamin D deficiency 9. Dizziness. Patient reported that this is not a new symptom, no other neurological changes noted, no changes in vision. Resolved 9. Lower extremity edema likely related to IV fluid, IV fluids were stopped and patient given Lasix 20 mg IV 1 dose. Edema resolved Hospital course This is an 88-year-old female patient who presents with complaints of abdominal pain. Patient has been following outpatient with her PCP and had a CAT scan completed showing acute sigmoid diverticulitis currently uncomplicated with no abscess or free air at bedtime. Near pancolitis in the entirety of the transverse colon and her lack haustration. Hepatic cysts and others are too small to accurately characterize although likely smaller cyst. Nonobstructing right renal calculus. She has a past medical history of A. fib in which she's on eliquis, chest pain, heart failure, diabetes mellitus, GERD, hyperlipidemia, hypertension, osteoarthritis, sleep apnea anxiety and depression. Amylase and lipase within normal limits. Patient has been started on Levaquin and Flagyl. Clear liquid diet. At this time patient denies chest pain or shortness of breath. Patient denies any abdominal this time. Patient denies any urinary burning or frequency On 03/08/19 patient is awake, alert & oriented x3 sitting up in chair. Plan of care explained in depth to patient and she verbalizes understanding. Patient reports tolerating clear liquid diet though is still experiencing nausea. Abdomen is soft, distended, hyperactive bowel sounds. She reports dizziness yesterday with movement, but is not experiencing any dizziness this morning. She states that this is not a new symptom but has her worried. At this time we will order othostatic blood pressures. Patient denies chest pain or SOB. Denies urinary burning or frequency. 03/09/2019 patient is alert oriented 3. Patient is currently resting comfortably in bed. Patient reports improvement with abdominal pain. Patient did report episode of nausea. Patient's diet advance to full liquid diet. Patient denies chest pain or shortness breath. Patient denies nausea vomiting or diarrhea. Patient denies any urinary burning or frequency On 03/10/2019 patient was seen and examined on the medical floor she is alert and oriented 3 in no apparent distress she is still complaining of abdominal pain she had 2 soft bowel movements today there is no fever or chills no headache or dizziness no chest pain no shortness of breath no cough no nausea or vomiting no burning with urination no frequency or urgency and no hematuria. On 03/11/2019 patient was seen and examined on the medical floor complaining of epigastric pain, she is also complaining of worsening lower extremity edema, otherwise she denies any complaints there is no fever or chills no headache or dizziness no chest pain no shortness of breath no cough no nausea or vomiting, no diarrhea no burning with urination no frequency or urgency no hematuria, no change in vision speech or gait weakness or numbness in any of her extremities. On 03/12/2019 patient alert and oriented 3. Patient reports improvement with abdominal pain. Patient having normal bowel movements. Patient has been tolerating diet. Patient denies nausea vomiting. Edema has improved. Patient has been cleared for discharge from physical and GI services. Patient will be DC'd on oral Levaquin due to intolerance to oral Flagyl. At this time patient denies chest pain or shortness of breath. Patient denies nausea vomiting or diarrhea. Patient denies any urinary burning or frequency. I performed an examination of the patient and discussed their management with the Nurse Practitioner. I have reviewed the Nurse Practitioner's notes and agree with the documented findings and plan of care Patient Condition at Discharge: Stable Plan - Discharge Summary Discharge Rx Participant: No New Discharge Prescriptions: New Levofloxacin [Levaquin] 500 mg PO DAILY 5 Days #5 tab Continue Apixaban [Eliquis] 2.5 mg PO BID Losartan/Hydrochlorothiazide [Hyzaar 100-25 Tablet] 1 tab PO DAILY Diltiazem Cd [Cardizem CD] 180 mg PO DAILY #30 cap.er.24h Pantoprazole Sodium [Protonix] 40 mg PO BID metFORMIN HCL 850 mg PO HS HYDROcodone/APAP 7.5-325MG [Prosperity 7.5-325] 1 tab PO Q8H PRN PRN Reason: Pain Ferrous Sulfate [Iron (65 MG Elemental)] 325 mg PO BID #60 tab Dicyclomine [Bentyl] 20 mg PO QID PRN PRN Reason: IBS Calcium Carbonate/Vitamin D3 [Oyster Shell-D 250 mg Tablet] 1 tab PO DAILY Discharge Medication List Apixaban [Eliquis] 2.5 mg PO BID 02/14/16 [History] Losartan/Hydrochlorothiazide [Hyzaar 100-25 Tablet] 1 tab PO DAILY 09/02/16 [History] Diltiazem Cd [Cardizem CD] 180 mg PO DAILY #30 cap.er.24h 07/24/18 [Rx] Pantoprazole Sodium [Protonix] 40 mg PO BID 09/14/18 [History] metFORMIN HCL 850 mg PO HS 11/03/18 [History] HYDROcodone/APAP 7.5-325MG [Prosperity 7.5-325] 1 tab PO Q8H PRN 12/15/18 [History] Ferrous Sulfate [Iron (65 MG Elemental)] 325 mg PO BID #60 tab 12/22/18 [Rx] Calcium Carbonate/Vitamin D3 [Oyster Shell-D 250 mg Tablet] 1 tab PO DAILY 03/06/19 [History] Dicyclomine [Bentyl] 20 mg PO QID PRN 03/06/19 [History] Levofloxacin [Levaquin] 500 mg PO DAILY 5 Days #5 tab 03/12/19 [Rx] Follow up Appointment(s)/Referral(s): Kareem Issa MD [Primary Care Provider] - 1-2 days Nico Morse MD [STAFF PHYSICIAN] - 1 Week Activity/Diet/Wound Care/Special Instructions: Activity as tolerated Diet heart healthy consistent carb Discharge Disposition: HOME SELF-CARE
--- NOTE | 2019-03-12 20:29 | PN ---
PROGRESS NOTE DATE OF DICTATION: March 12, 2019. REQUESTING PHYSICIAN: Dr. Issa The patient is an 88-year-old pleasant white female admitted to the hospital with acute sigmoid diverticulitis. She was treated with IV antibiotics for 3 days. Changed to p.o. antibiotics yesterday. She still complains of some back pain and right-sided abdominal pain, but overall she is feeling much better. No bowel movements in the last 24 hours. She denies any nausea, vomiting. PHYSICAL EXAMINATION: Appears comfortable. No apparent distress. VITAL SIGNS: Stable. Blood pressure 130/73, pulse rate 73, temperature 97.8. HEENT examination unremarkable. Conjunctivae pink. Sclerae anicteric. Oral cavity no lesions. Neck no JVD or lymph node enlargement. Chest was clear to auscultation. HEART: Regular rate and rhythm. ABDOMEN: Soft. Bowel sounds are positive. No organomegaly. EXTREMITIES: No pedal edema. Skin no rashes. NEUROLOGIC: Alert and oriented x3. No focal deficits. LABS: Done today: WBC 8.5, hemoglobin 12, platelets normal. Basic metabolic panel is within normal limits. IMPRESSION: Acute sigmoid diverticulitis, status post IV Levaquin and Flagyl for 3 days and now on oral antibiotics, doing much better. RECOMMENDATIONS: 1. The patient can be discharged home today. 2. Low-fiber diet. 3. Advised to follow up in office in 2 weeks. Thank you for this consultation. MICHELLL / CLAIRN: [id number] /
[2019-03-13] MEDS ORDERED: LEVOFLOXACIN 750 MG TAB PO SCH (21:00)
== END 2019-03-12 15:55 | disposition home or self-care (01) | DRG 392 ==
LOC: EC 17:31 → 3NMEDONC 20:40
PROVIDERS: ADMIT Internal Medicine; ATTEND Internal Medicine
DX: K57.32 Diverticulitis of large intestine without perforation or abscess without bleeding (principal); K51.00 Ulcerative (chronic) pancolitis without complications; I50.9 Heart failure, unspecified; J44.9 Chronic obstructive pulmonary disease, unspecified; K21.9 Gastro-esophageal reflux disease without esophagitis; K76.89 Other specified diseases of liver; N20.0 Calculus of kidney; I48.2 Chronic atrial fibrillation; I11.0 Hypertensive heart disease with heart failure; E11.9 Type 2 diabetes mellitus without complications; E66.9 Obesity, unspecified; Z68.36 Body mass index [BMI] 36.0-36.9, adult; E78.5 Hyperlipidemia, unspecified; F32.9 Major depressive disorder, single episode, unspecified; F41.9 Anxiety disorder, unspecified; G47.33 Obstructive sleep apnea (adult) (pediatric); G89.29 Other chronic pain; M54.9 Dorsalgia, unspecified; Z99.89 Dependence on other enabling machines and devices; Z79.01 Long term (current) use of anticoagulants; Z79.84 Long term (current) use of oral hypoglycemic drugs; Z79.899 Other long term (current) drug therapy; Z82.49 Family history of ischemic heart disease and other diseases of the circulatory system; Z82.5 Family history of asthma and other chronic lower respiratory diseases; Z83.3 Family history of diabetes mellitus; Z87.891 Personal history of nicotine dependence; Z90.710 Acquired absence of both cervix and uterus; Z80.9 Family history of malignant neoplasm, unspecified; M19.90 Unspecified osteoarthritis, unspecified site; E55.9 Vitamin D deficiency, unspecified; Z88.6 Allergy status to analgesic agent; Z98.42 Cataract extraction status, left eye; Z98.41 Cataract extraction status, right eye; Z96.659 Presence of unspecified artificial knee joint; Z90.49 Acquired absence of other specified parts of digestive tract
CPT/HCPCS: 36415; 80053; 81001; 82150; 83605; 83690; 85025; 85610; 85730; 87040; 96365; 96366; 96367; 96375; 99285

== ENCOUNTER → 2019-03-06 | Outpatient (CLI) | payer MEDICARE, OTHER ==
[2019-03-06 10:34] LABS: African American GFR (CKD) >90 (>60 ml/min/1.73 sqM); Blood Urea Nitrogen 18 mg/dL (7-17)
--- NOTE | 2019-03-06 14:24 | CT ---
EXAMINATION TYPE: CT abdomen pelvis w con DATE OF EXAM: 03/06/2019 HISTORY: generalized abdominal pain CT DLP: 1199.2mGycm Automated Exposure Control for Dose Reduction was Utilized. CONTRAST: CT scan of the abdomen and pelvis is performed with IV Contrast, patient injected with 80 mL of Isovu e 300. COMPARISON: 12/24/2018. FINDINGS: LUNG BASES: No significant abnormality is appreciated. LIVER/GB: There is a fluid attenuated hepatic cyst measuring 4.3 cm in the posterior left hepatic lob e. There are other smaller punctate lesions that are too small to accurately characterize as there ar e subcentimeter in addition to other scattered hepatic cysts including a low-density probable cyst in the caudate lobe measuring 2.7 cm. Benign granulomatous changes of the hepatic parenchyma. No intrahepatic biliary ductal dilatation. Ga llbladder is surgically absent. PANCREAS: Pancreatic head atrophy is seen. No ductal dilatation. SPLEEN: Benign granulomas are seen of the spleen with sequela prior splenic injury with focal cleft a nd atrophy of the anterolateral spleen. ADRENALS: Slight thickening in the left adrenal gland although this maintains a normal adreniform sha pe and likely relates to adrenal gland hyperplasia. Right adrenal gland is unremarkable. KIDNEYS: Nonobstructing 2 mm right lower pole renal calculus is present as seen on the prior exam of 2019. Right lower pole renal cyst measuring 8 mm. Punctate to small to accurately characterize renal lesions are seen. BOWEL: There is a descending duodenal diverticulum noted. Acute sigmoid diverticulosis is seen with t hickened sigmoid colon in a long segment surrounding numerous diverticula as well as fat stranding in the adjacent fascial planes and small amount of fluid layering dependently. There is also vasa recta engorgement. Other colonic diverticula are scattered throughout the colon without focal pericolonic fat stranding. There is lack of haustration within the nondistended transverse colon and descending c olon also suggestive of colitis. No dilated large or small bowel. LYMPH NODES: No greater than 1cm abdominal or pelvic lymph nodes are appreciated. OSSEOUS STRUCTURES: Multilevel degenerative changes of the spine are severe. OTHER: Moderate atherosclerosis of the abdominal aorta and its branches. Renal ostial stenosis is see n however there appears to be symmetric perfusion to the kidneys IMPRESSION: 1. Acute sigmoid diverticulitis, currently uncomplicated with no adjacent abscess or free air at this time. Findings were relayed to Dr. Issa at 1421 on 03/06/[address] Olivo. 2. Appearance of near pancolitis within the entirety of the transverse and descending colon as there is lack of haustration. 3. Hepatic cysts and other lesions that are too small to accurately characterize although likely smal ler cysts. 4. Nonobstructing right renal calculus.
== END | disposition home or self-care (01) ==
LOC: RADCTMAIN 08:48
PROVIDERS: ATTEND Internal Medicine
DX: K57.32 Diverticulitis of large intestine without perforation or abscess without bleeding (principal); K76.89 Other specified diseases of liver; N20.0 Calculus of kidney; Z87.19 Personal history of other diseases of the digestive system
CPT/HCPCS: 82565; 84520; 74177; 36415; Q9967

== ENCOUNTER → 2019-04-17 | Outpatient (CLI) | payer MEDICARE, OTHER | END | disposition home or self-care (01) | LOC: LABWHC1 10:59 | PROVIDERS: ATTEND Nurse Practitioner | DX: R19.7 Diarrhea, unspecified (principal) | CPT/HCPCS: 83993 ==

== ENCOUNTER 2019-04-21 10:41 | Emergency (ER) | payer MEDICARE, OTHER ==
[2019-04-21 11:00] VITALS: BP 139/89; PULSE 95; RESP 18; TEMP 98.6
--- NOTE | 2019-04-21 12:38 | ED ---
General Adult HPI - General Chief complaint: Extremity Injury, Lower Stated complaint: knee pain Time Seen by Provider: 04/21/19 11:00 Source: patient Mode of arrival: wheelchair Limitations: physical limitation - History of Present Illness Initial comments: Patient is an 88 old female presents emergency department after a fall that she sustained 4 months ago. She was working in her garden when she tripped and fell over a concrete block. She fell forward and skinned her left anterior briscoe. She was able to get up and ambulate after the incident. States that over the past several months she's had progressive pain to this area. Patient is concerned that she may have gotten a thorn underneath her skin. There is no warmth or swelling to the area. She does have an area of hyperpigmentation is healing well. She denies any pain in her ankle. Does report mild left knee pain. She does have a history of a total knee arthroplasty which was done by Dr. Freed. She reports some posterior calf pain. Denies any leg swelling. No history of DVTs or PEs. No blood clotting disorders. Is not on any exogenous hormone use. Denies immobility or recent surgeries. The patient is able to ambulate on the extremity. She saw her primary care doctor twice however he any imaging studies. She has been taking her prescribed Bayard at home for her pain. Reports that it has been helping. Denies any fevers or chills. No numbness or tingling in her foot. There are no other alleviating, precipitating or modifying factors - Related Data Home Medications Medication Instructions Recorded Confirmed Apixaban [Eliquis] 2.5 mg PO BID 02/14/16 04/21/19 Losartan/Hydrochlorothiazide 1 tab PO DAILY 09/02/16 04/21/19 [Hyzaar 100-25 Tablet] Pantoprazole Sodium [Protonix] 40 mg PO BID-W/MEALS 09/14/18 04/21/19 Dicyclomine [Bentyl] 10 mg PO TID 04/21/19 04/21/19 Multivit-Min/FA/Lycopen/Lutein 1 tab PO DAILY 04/21/19 04/21/19 [Centrum Silver Tablet] metFORMIN HCL 850 mg PO DAILY 04/21/19 04/21/19 Previous Rx's Medication Instructions Recorded Diltiazem Cd [Cardizem CD] 180 mg PO DAILY #30 cap.er.24h 01/28/19 Allergies Allergy/AdvReac Type Severity Reaction Status Date / Time aspirin AdvReac Dyspnea,Nausea/Vomiting,Dizzy,Tingling,Warm Verified 04/21/19 12:03 sensation Review of Systems ROS Statement: Those systems with pertinent positive or pertinent negative responses have been documented in the HPI. ROS Other: All systems not noted in ROS Statement are negative. Past Medical History Past Medical History: Atrial Fibrillation, Chest Pain / Angina, Heart Failure, Diabetes Mellitus, GERD/Reflux, Hyperlipidemia, Hypertension, Osteoarthritis (OA), Respiratory Disorder, Sleep Apnea/CPAP/BIPAP, Thyroid Disorder Additional Past Medical History / Comment(s): DDD WITH BACK PAIN, OCCASIONAL SWELLING IN FEET, USES C-PAP MACHINE. History of Any Multi-Drug Resistant Organisms: None Reported Past Surgical History: Cholecystectomy, Hysterectomy, Joint Replacement Additional Past Surgical History / Comment(s): EGD for gastric reflux. Excision of lipomas. bilateral cataracts, total knee., Pain clinic procedures. Past Anesthesia/Blood Transfusion Reactions: No Reported Reaction Past Psychological History: Anxiety, Depression Smoking Status: Former smoker Past Alcohol Use History: None Reported Past Drug Use History: None Reported - Past Family History Brother(s) Family Medical History: Congestive Heart Failure (CHF), COPD, Coronary Artery Disease (CAD), Diabetes Mellitus Daughter(s) Additional Family Medical History / Comment(s): One from MVA Son(s) Family Medical History: Diabetes Mellitus, Hyperlipidemia, Hypertension Sister(s) Family Medical History: Cancer Mother Family Medical History: Dementia Father Family Medical History: COPD Additional Family Medical History / Comment(s): EMPHYSEMA. General Exam Limitations: no limitations General appearance: alert, in no apparent distress Extremities exam: Present: normal inspection, full ROM, tenderness (left anterior briscoe), normal capillary refill, calf tenderness (left). Absent: pedal edema, joint swelling (2+ DP and PT pulses. normal capillary refill) Skin exam: Present: warm, dry, intact, other (hyperpigmented area over left briscoe) Course Vital Signs 04/21/19 10:56 Temperature 98.6 F Pulse Rate 95 Respiratory 18 Rate Blood Pressure 139/89 O2 Sat by Pulse 94 L Oximetry Medical Decision Making - Medical Decision Making Upon arrival the patient is placed into room 20. A history and physical exam was performed. I did recommend an x-ray of the patient's knee and left tib-fib. Also recommended an ultrasound. The patient agreed to this. She did take a Bayard prior to coming to the emergency room and therefore we will hold off on pain medication at this time. X-rays of the patient's left knee and tib-fib were performed. Her hardware is in good positioning. No soft tissue foreign- body identifiable on x-ray. I did send the patient for a lower extremity Doppler because of her reported calf pain. This is negative. I discussed results with the patient. Informed her she should follow up with Dr. Freed or Dr. Israel guarding her persistent pain. The patient is able to get up and ambulate around the emergency room. The patient was then discharged home in stable condition with return parameters Disposition Clinical Impression: Leg pain Disposition: HOME SELF-CARE Condition: Stable Instructions (If sedation given, give patient instructions): Leg Pain (ED) Additional Instructions: Please follow-up with the orthopedic doctor for further evaluation. Return to the emergency room for any new or worsening symptoms Is patient prescribed a controlled substance at d/c from ED?: No Referrals: None,Stated [Primary Care Provider] - 1-2 days Phan Israel MD [Medical Doctor] - 1-2 days Time of Disposition: 13:21
--- NOTE | 2019-04-21 12:49 | XR ---
EXAMINATION TYPE: XR tibia fibula LT , 2 VIEWS DATE OF EXAM ORDERED: 04/21/2019 HISTORY: pain. COMPARISON: None. FINDINGS: There is a left knee arthroplasty in place. Prosthetic elements appear in good position. N o long bone fracture, dislocation or other osseous lesion is seen. IMPRESSION: STATUS POST LEFT KNEE ARTHROPLASTY.
--- NOTE | 2019-04-21 12:52 | XR ---
EXAMINATION TYPE: XR knee 4V LT , 4 VIEWS DATE OF EXAM ORDERED: 04/21/2019 HISTORY: pain. COMPARISON: None. FINDINGS: A left knee arthroplasties in place. Prosthetic elements are in good position. No fracture or joint effusion is seen. IMPRESSION: STATUS POST LEFT KNEE ARTHROPLASTY.
--- NOTE | 2019-04-21 13:09 | US ---
EXAMINATION TYPE: US venous doppler duplex LE LT DATE OF EXAM: 04/21/2019 12:51 PM COMPARISON: NONE CLINICAL HISTORY: calf pain. SIDE PERFORMED: Left TECHNIQUE: The lower extremity deep venous system is examined utilizing real time linear array sonog kieran with graded compression, doppler sonography and color-flow sonography. VESSELS IMAGED: External Iliac Vein (EIV) Common Femoral Vein Deep Femoral Vein Greater Saphenous Vein * Femoral Vein Popliteal Vein Small Saphenous Vein * Proximal Calf Veins (* superficial vessels) Left Leg: Negative for DVT Technically difficult due to poor venous return and panus. No popliteal fossa lesion is seen. IMPRESSION: THIS EXAMINATION IS NEGATIVE FOR DVT WITHIN THE LEFT LEG.
== END 2019-04-21 13:29 | disposition home or self-care (01) ==
LOC: EC 10:41
DX: M79.662 Pain in left lower leg (principal); M25.562 Pain in left knee; Z96.652 Presence of left artificial knee joint; L81.9 Disorder of pigmentation, unspecified; I48.91 Unspecified atrial fibrillation; I11.0 Hypertensive heart disease with heart failure; I50.9 Heart failure, unspecified; E11.9 Type 2 diabetes mellitus without complications; K21.9 Gastro-esophageal reflux disease without esophagitis; M19.90 Unspecified osteoarthritis, unspecified site; G47.30 Sleep apnea, unspecified; Z87.891 Personal history of nicotine dependence; Z88.6 Allergy status to analgesic agent; Z79.01 Long term (current) use of anticoagulants; Z79.84 Long term (current) use of oral hypoglycemic drugs; Z79.899 Other long term (current) drug therapy; Z99.89 Dependence on other enabling machines and devices; Z91.81 History of falling
CPT/HCPCS: 99284

== ENCOUNTER 2020-03-08 16:20 | Inpatient (IN) | payer MEDICARE, OTHER ==
[2020-03-08] MEDS ORDERED: IPRATROPIUM-ALBUTEROL 3 ML NEB INHALATION STA ×2 (16:45→16:49)
[2020-03-08] MEDS ORDERED: DILTIAZEM 5 MG/ML 10 ML VIAL IVP STA (16:49)
--- NOTE | 2020-03-08 16:52 | ED ---
General Adult HPI - General Chief complaint: Shortness of Breath Stated complaint: Diff Breathing Time Seen by Provider: 03/08/20 16:36 Source: patient, EMS Mode of arrival: EMS Limitations: no limitations - History of Present Illness Initial comments: Patient presents the ED by ambulance for evaluation. Patient states that she has felt dyspneic for the past 3 days or so. Patient also states that she has had a productive cough for the past 2 days or so. Patient states that her cough is productive of yellow colored sputum. Patient denies recent travel or known sick contact. Patient denies fever or chills, headache, focal neuro deficit, nasal congestion or rhinorrhea, chest pain, hemoptysis, palpitations, dizziness, abdominal pain, nausea/vomiting/diarrhea, dysuria or urinary symptoms, decreased urine output, leg or calf swelling or pain, or any other symptoms or complaints. Patient states that she was diagnosed with pneumonia about 3 weeks ago. Patient was reportedly given 2 albuterol neb treatments as well as IV Solu- Medrol by EMS. Patient has COPD and she is on home oxygen. - Related Data Home Medications Medication Instructions Recorded Confirmed Apixaban [Eliquis] 2.5 mg PO BID 02/14/16 02/18/20 Pantoprazole Sodium [Protonix] 40 mg PO BID-W/MEALS 09/14/18 02/18/20 Cholecalciferol [Vitamin D3 (25 1,000 unit PO DAILY 02/18/20 02/18/20 Mcg = 1000 Iu)] HYDROcodone/APAP 7.5-325MG [[place] 1 tab PO TID PRN 02/18/20 02/18/20 7.5-325] Levothyroxine Sodium [Synthroid] 50 mcg PO DAILY 02/18/20 02/18/20 Magnesium Oxide 400 mg PO DAILY 02/18/20 02/18/20 Memantine [Namenda] 5 mg PO BID 02/18/20 02/18/20 Escitalopram [Lexapro] 5 mg PO HS 03/08/20 03/08/20 Fluticasone Propionate [Flonase 1 - 2 spray EA NOSTRIL DAILY PRN 03/08/20 03/08/20 Allergy Relief] Multivit-Min/FA/Lycopen/Lutein 1 tab PO DAILY 03/08/20 03/08/20 [Centrum Silver Tablet] diazePAM [Valium] 5 mg PO DAILY 03/08/20 03/08/20 diazePAM [Valium] 5 mg PO DAILY PRN 03/08/20 03/08/20 Previous Rx's Medication Instructions Recorded Furosemide [Lasix] 20 mg PO DAILY tab 02/21/20 Ipratropium-Albuterol Nebulize 3 ml INHALATION RT-QID ml 02/21/20 [Duoneb 0.5 mg-3 mg/3 ml Soln] metFORMIN HCL [Glucophage] 850 mg PO AC-BRKFST tab 02/21/20 Allergies Allergy/AdvReac Type Severity Reaction Status Date / Time aspirin AdvReac Dyspnea,Nausea/Vomiting,Dizzy,Tingling,Warm Verified 02/18/20 12:16 sensation Review of Systems ROS Statement: Those systems with pertinent positive or pertinent negative responses have been documented in the HPI. ROS Other: All systems not noted in ROS Statement are negative. Past Medical History Past Medical History: Atrial Fibrillation, Chest Pain / Angina, Heart Failure, D iabetes Mellitus, GERD/Reflux, Hyperlipidemia, Hypertension, Osteoarthritis (OA), Respiratory Disorder, Sleep Apnea/CPAP/BIPAP, Thyroid Disorder Additional Past Medical History / Comment(s): DDD WITH BACK PAIN, OCCASIONAL SWELLING IN FEET, USES C-PAP MACHINE. History of Any Multi-Drug Resistant Organisms: None Reported Past Surgical History: Cholecystectomy, Hysterectomy, Joint Replacement Additional Past Surgical History / Comment(s): EGD for gastric reflux. Excision of lipomas. bilateral cataracts, total knee., Pain clinic procedures. Past Anesthesia/Blood Transfusion Reactions: No Reported Reaction Past Psychological History: Anxiety, Depression Smoking Status: Former smoker Past Alcohol Use History: None Reported Past Drug Use History: None Reported - Past Family History Brother(s) Family Medical History: Congestive Heart Failure (CHF), COPD, Coronary Artery Disease (CAD), Diabetes Mellitus Daughter(s) Additional Family Medical History / Comment(s): One from MVA Son(s) Family Medical History: Diabetes Mellitus, Hyperlipidemia, Hypertension Sister(s) Family Medical History: Cancer Mother Family Medical History: Dementia Father Family Medical History: COPD Additional Family Medical History / Comment(s): EMPHYSEMA. General Exam Limitations: no limitations General appearance: alert Head exam: Present: atraumatic, normocephalic Eye exam: Present: normal appearance, EOMI ENT exam: Present: normal oropharynx, mucous membranes moist Neck exam: Present: other (Trachea is in midline). Absent: tenderness Respiratory exam: Present: respiratory distress, decreased breath sounds, prolonged expiratory, other (Mild bilateral inspiratory and expiratory wheezes; tachypneic). Absent: rales, rhonchi, stridor Cardiovascular Exam: Present: tachycardia, irregular rhythm, normal heart sounds, other (Normal radial pulses bilaterally) GI/Abdominal exam: Present: soft. Absent: distended, tenderness, guarding Extremities exam: Present: other (Negative Homans sign bilaterally). Absent: tenderness, pedal edema, calf tenderness Neurological exam: Present: alert, oriented X3. Absent: motor sensory deficit Psychiatric exam: Present: normal affect, normal mood Skin exam: Present: warm, dry, intact, normal color Course Vital Signs 03/08/20 03/08/20 03/08/20 16:25 16:39 17:08 Temperature 97.4 F L Pulse Rate 121 H 105 H Respiratory 31 H 31 H Rate Blood Pressure 147/85 O2 Sat by Pulse 93 L Oximetry 03/08/20 03/08/20 03/08/20 17:14 17:50 18:01 Temperature Pulse Rate 111 H 128 H 105 H Respiratory 27 H 30 H Rate Blood Pressure 142/111 139/73 O2 Sat by Pulse 91 L 91 L Oximetry - Reevaluation(s) Reevaluation #1: 03/08/20 18:36 Case, H&P, test results and ED/prehospital management were discussed with Dr. Issa. He accepts hospital admission. He has no further recommendations at this time. 03/08/20 18:53 Patient continues to be somewhat tachypneic and labored in her breathing, but she now has better air movement and she reports that her dyspnea has improved with the DuoNeb treatments that she was given in the ED. Patient remains in atrial fibrillation on the policy change clerk, but her heart rate has now improved to the 90s to low 100s. Patient denies development of any new symptoms while in the ED. Patient and daughter are aware of the patient's test results and my discussion with Dr. Issa as above. Patient agrees with hospital admission at this time. EKG Findings - EKG Comments: EKG Findings:: Atrial fibrillation with RVR, ventricular rate of 140 bpm, normal QRS interval, normal QT interval, normal axis, nonspecific ST and T-wave abnormality Medical Decision Making - Medical Decision Making Patient's dyspnea, respiratory status and heart rate have all improved with ED management. Patient is afebrile and without leukocytosis. Patient's lactic acid level is within normal limits. Patient was treated in the ED with IV cefepime and IV azithromycin for treatment of hospital-acquired pneumonia. Patient was also given DuoNeb treatments and IV diltiazem in the ED. Patient was given IV Solu-Medrol by EMS. Patient is on Eliquis anticoagulation therapy. I suspect that the patient's dyspnea is likely secondary to pneumonia and COPD exacerbation. Dr. Issa has accepted hospital admission. - Lab Data Result diagrams: 03/08/20 17:35 03/08/20 17:35 Lab Results 03/08/20 03/08/20 03/08/20 Range/Units 16:56 17:35 17:35 WBC 9.0 (3.8-10.6) k/uL RBC 4.00 (3.80-5.40) m/uL Hgb 11.6 (11.4-16.0) gm/dL Hct 36.2 (34.0-46.0) % MCV 90.5 (80.0-100.0) fL MCH 29.0 (25.0-35.0) pg MCHC 32.0 (31.0-37.0) g/dL RDW 14.6 (11.5-15.5) % Plt Count 187 (150-450) k/uL Neutrophils % 85 % Lymphocytes % 11 % Monocytes % 2 % Eosinophils % 1 % Basophils % 0 % Neutrophils # 7.6 (1.3-7.7) k/uL Lymphocytes # 1.0 (1.0-4.8) k/uL Monocytes # 0.2 (0-1.0) k/uL Eosinophils # 0.1 (0-0.7) k/uL Basophils # 0.0 (0-0.2) k/uL Hypochromasia Slight PT 10.2 (9.0-12.0) sec INR 1.0 (<1.2) APTT 20.9 L (22.0-30.0) sec Sample Site lrad ABG pH 7.39 (7.35-7.45) ABG pCO2 58 H (35-45) mmHg ABG pO2 65 L (83-108) mmHg ABG HCO3 35 H (21-25) mmol/L ABG Total CO2 37 H (19-24) mmol/L ABG O2 Saturation 92.7 L (94-97) % ABG Base Excess 10.4 mmol/L Vega Test Yes FiO2 30 % Sodium (137-145) mmol/L Potassium (3.5-5.1) mmol/L Chloride (98-107) mmol/L Carbon Dioxide (22-30) mmol/L Anion Gap mmol/L BUN (7-17) mg/dL Creatinine (0.52-1.04) mg/dL Est GFR (CKD-EPI)AfAm (>60 ml/min/1.73 sqM) Est GFR (CKD-EPI)NonAf (>60 ml/min/1.73 sqM) Glucose (74-99) mg/dL Plasma Lactic Acid Osorio (0.7-2.0) mmol/L Calcium (8.4-10.2) mg/dL Total Bilirubin (0.2-1.3) mg/dL AST (14-36) U/L ALT (4-34) U/L Alkaline Phosphatase (38-126) U/L Troponin I (0.000-0.034) ng/mL NT-Pro-B Natriuret Pep pg/mL Total Protein (6.3-8.2) g/dL Albumin (3.5-5.0) g/dL 03/08/20 03/08/20 03/08/20 Range/Units 17:35 17:35 17:35 WBC (3.8-10.6) k/uL RBC (3.80-5.40) m/uL Hgb (11.4-16.0) gm/dL Hct (34.0-46.0) % MCV (80.0-100.0) fL MCH (25.0-35.0) pg MCHC (31.0-37.0) g/dL RDW (11.5-15.5) % Plt Count (150-450) k/uL Neutrophils % % Lymphocytes % % Monocytes % % Eosinophils % % Basophils % % Neutrophils # (1.3-7.7) k/uL Lymphocytes # (1.0-4.8) k/uL Monocytes # (0-1.0) k/uL Eosinophils # (0-0.7) k/uL Basophils # (0-0.2) k/uL Hypochromasia PT (9.0-12.0) sec INR (<1.2) APTT (22.0-30.0) sec Sample Site ABG pH (7.35-7.45) ABG pCO2 (35-45) mmHg ABG pO2 (83-108) mmHg ABG HCO3 (21-25) mmol/L ABG Total CO2 (19-24) mmol/L ABG O2 Saturation (94-97) % ABG Base Excess mmol/L Vega Test FiO2 % Sodium 139 (137-145) mmol/L Potassium 4.0 (3.5-5.1) mmol/L Chloride 102 (98-107) mmol/L Carbon Dioxide 32 H (22-30) mmol/L Anion Gap 5 mmol/L BUN 17 (7-17) mg/dL Creatinine 0.51 L (0.52-1.04) mg/dL Est GFR (CKD-EPI)AfAm >90 (>60 ml/min/1.73 sqM) Est GFR (CKD-EPI)NonAf 87 (>60 ml/min/1.73 sqM) Glucose 212 H (74-99) mg/dL Plasma Lactic Acid Osorio 2.0 (0.7-2.0) mmol/L Calcium 8.9 (8.4-10.2) mg/dL Total Bilirubin 0.7 (0.2-1.3) mg/dL AST 24 (14-36) U/L ALT 16 (4-34) U/L Alkaline Phosphatase 68 (38-126) U/L Troponin I <0.012 (0.000-0.034) ng/mL NT-Pro-B Natriuret Pep pg/mL Total Protein 6.3 (6.3-8.2) g/dL Albumin 3.8 (3.5-5.0) g/dL 03/08/20 Range/Units 17:35 WBC (3.8-10.6) k/uL RBC (3.80-5.40) m/uL Hgb (11.4-16.0) gm/dL Hct (34.0-46.0) % MCV (80.0-100.0) fL MCH (25.0-35.0) pg MCHC (31.0-37.0) g/dL RDW (11.5-15.5) % Plt Count (150-450) k/uL Neutrophils % % Lymphocytes % % Monocytes % % Eosinophils % % Basophils % % Neutrophils # (1.3-7.7) k/uL Lymphocytes # (1.0-4.8) k/uL Monocytes # (0-1.0) k/uL Eosinophils # (0-0.7) k/uL Basophils # (0-0.2) k/uL Hypochromasia PT (9.0-12.0) sec INR (<1.2) APTT (22.0-30.0) sec Sample Site ABG pH (7.35-7.45) ABG pCO2 (35-45) mmHg ABG pO2 (83-108) mmHg ABG HCO3 (21-25) mmol/L ABG Total CO2 (19-24) mmol/L ABG O2 Saturation (94-97) % ABG Base Excess mmol/L Vega Test FiO2 % Sodium (137-145) mmol/L Potassium (3.5-5.1) mmol/L Chloride (98-107) mmol/L Carbon Dioxide (22-30) mmol/L Anion Gap mmol/L BUN (7-17) mg/dL Creatinine (0.52-1.04) mg/dL Est GFR (CKD-EPI)AfAm (>60 ml/min/1.73 sqM) Est GFR (CKD-EPI)NonAf (>60 ml/min/1.73 sqM) Glucose (74-99) mg/dL Plasma Lactic Acid Osorio (0.7-2.0) mmol/L Calcium (8.4-10.2) mg/dL Total Bilirubin (0.2-1.3) mg/dL AST (14-36) U/L ALT (4-34) U/L Alkaline Phosphatase (38-126) U/L Troponin I (0.000-0.034) ng/mL NT-Pro-B Natriuret Pep 1070 pg/mL Total Protein (6.3-8.2) g/dL Albumin (3.5-5.0) g/dL - Radiology Data Radiology results: report reviewed (Chest x-ray: Airspace infiltrate and atelectasis at right lung base- increased compared to old exam; minimal left mid lung atelectasis) Critical Care Time Critical Care Time: Yes Total Critical Care Time: 70 Disposition Clinical Impression: COPD exacerbation, Atrial fibrillation with RVR, Pneumonia Disposition: ADMITTED IP TO THIS HOSP Condition: Stable Is patient prescribed a controlled substance at d/c from ED?: No Referrals: Martha Ferreira MD [Primary Care Provider] - 1-2 days Time of Disposition: 18:46
[2020-03-08 16:57] LABS: ABG Base Excess 10.4 mmol/L; ABG HCO3 35 mmol/L (21-25); ABG Oxygen Saturation 92.7 % (94-97); ABG PCO2 58 mmHg (35-45); ABG PH 7.39 (7.35-7.45); ABG PO2 65 mmHg (83-108); ABG TCO2 37 mmol/L (19-24); Allen Test Performed? Yes
--- NOTE | 2020-03-08 17:24 | XR ---
EXAMINATION TYPE: XR chest 1V portable DATE OF EXAM: 03/08/2020 COMPARISON: 02/18/2020 HISTORY: Short of breath TECHNIQUE: FINDINGS: Heart is enlarged. There is some airspace infiltrate right lower lobe. There is slight elev ated right diaphragm. There is atelectasis right lung base. There is no gross heart failure. There ar e chest leads. There is some linear density left midlung. IMPRESSION: There is some airspace infiltrate and atelectasis right lung base increased compared to o ld exam. No obvious heart failure. Minimal atelectasis left midlung unchanged.
[2020-03-08 17:45] LABS: Basophils % (A) 0 %; Eosinophils # (A) 0.1 k/uL (0-0.7); Eosinophils % (A) 1 %; HCT 36.2 % (34.0-46.0); HGB 11.6 gm/dL (11.4-16.0); Hypochromasia Slight; Lymphocytes % (A) 11 %; MCV 90.5 fL (80.0-100.0); Mean Platelet Volume 7.6; Monocytes # (A) 0.2 k/uL (0-1.0); Monocytes % (A) 2 %; Neutrophils # (A) 7.6 k/uL (1.3-7.7); Neutrophils % (A) 85 %; Platelet Count 187 k/uL (150-450); RDW 14.6 % (11.5-15.5)
[2020-03-08 17:54] LABS: ALT 16 U/L (4-34); AST 24 U/L (14-36); African American GFR (CKD) >90 (>60 ml/min/1.73 sqM); Albumin 3.8 g/dL (3.5-5.0); Alkaline Phosphatase 68 U/L (38-126); Anion Gap 5 mmol/L; Blood Urea Nitrogen 17 mg/dL (7-17); Calcium 8.9 mg/dL (8.4-10.2); Carbon Dioxide 32 mmol/L (22-30); Chloride 102 mmol/L (98-107); Glucose 212 mg/dL (74-99); Non-African American GFR(CKD) 87 (>60 ml/min/1.73 sqM); Sodium 139 mmol/L (137-145); Total Bilirubin 0.7 mg/dL (0.2-1.3); Total Protein 6.3 g/dL (6.3-8.2)
[2020-03-08] MEDS ORDERED: CEFEPIME 2 GM in SODIUM CHLORIDE 0.9% 100 ML IVPB STA (17:57)
[2020-03-08] MEDS ORDERED: AZITHROMYCIN 500 MG in SODIUM CHLORIDE 0.9% 250 ML IVPB STA (18:01)
[2020-03-08 18:14] LABS: Prothrombin Time 10.2 sec (9.0-12.0)
[2020-03-08 18:18] LABS: Partial Thromboplastin Time 20.9 sec (22.0-30.0)
[2020-03-08] MEDS: IPRATROPIUM-ALBUTEROL 3 ML NEB INHALATION SCH (19:28)
[2020-03-08] MEDS ORDERED: MORPHINE SULFATE 4 MG/ML SYRINGE IVP STA (19:49)
[2020-03-08 21:00] LABS: Glucose,Whole Blood 311 mg/dL (75-99)
[2020-03-08] MEDS: APIXABAN 2.5 MG TABLET PO SCH (22:09)
[2020-03-09 06:13] LABS: Glucose,Whole Blood 264 mg/dL (75-99)
[2020-03-09] MEDS: LEVOTHYROXINE 50 MCG TAB PO SCH (06:34)
[2020-03-09] MEDS: INSULIN ASPART (NovoLOG) 100 UNIT/ML VIAL SQ SCH ×4 (06:34→20:48)
[2020-03-09] MEDS: metFORMIN 850 MG TAB PO SCH (06:34)
[2020-03-09 06:48] LABS: Basophils % (A) 0 %; Eosinophils % (A) 0 %; HCT 36.8 % (34.0-46.0); HGB 11.5 gm/dL (11.4-16.0); Hypochromasia Moderate; Lymphocytes # (A) 0.6 k/uL (1.0-4.8); Lymphocytes % (A) 8 %; MCHC 31.1 g/dL (31.0-37.0); MCV 93.2 fL (80.0-100.0); Mean Platelet Volume 7.9; Monocytes # (A) 0.1 k/uL (0-1.0); Monocytes % (A) 2 %; Neutrophils # (A) 6.6 k/uL (1.3-7.7); Neutrophils % (A) 89 %; Platelet Count 210 k/uL (150-450); RBC 3.95 m/uL (3.80-5.40); RDW 14.5 % (11.5-15.5); WBC 7.5 k/uL (3.8-10.6)
[2020-03-09 07:00] LABS: African American GFR (CKD) >90 (>60 ml/min/1.73 sqM); Anion Gap 6 mmol/L; Blood Urea Nitrogen 18 mg/dL (7-17); Calcium 8.9 mg/dL (8.4-10.2); Carbon Dioxide 31 mmol/L (22-30); Chloride 102 mmol/L (98-107); Glucose 249 mg/dL (74-99); Non-African American GFR(CKD) 89 (>60 ml/min/1.73 sqM); Potassium 4.9 mmol/L (3.5-5.1); Sodium 139 mmol/L (137-145)
[2020-03-09] MEDS: IPRATROPIUM-ALBUTEROL 3 ML NEB INHALATION SCH ×4 (07:28→20:04)
[2020-03-09] MEDS ORDERED: FUROSEMIDE 20 MG TAB PO SCH (09:00)
[2020-03-09] MEDS ORDERED: FLUTICASONE 50MCG/SPRAY NASAL 16GM EA NOSTRIL PRN (09:29)
[2020-03-09] MEDS: APIXABAN 2.5 MG TABLET PO SCH ×2 (09:31→20:48)
[2020-03-09] MEDS: DILTIAZEM CD 180 MG CAP.ER.24H PO SCH (09:31)
[2020-03-09] MEDS: HYDROcodone/APAP 7.5-325MG 1 EACH TAB PO PRN (10:01)
--- NOTE | 2020-03-09 10:16 | P.HPIM ---
History of Present Illness H&P Date: 03/09/20 Joyce Davis is an 89-year-old female who presented to [facility] emergency room with a chief complaint of shortness of breath and worsening weakness she was evaluated in the emergency room she had evidence of right lower lobe lung infiltrate suggestive of pneumonia, she also had evidence of atrial fibrillation with rapid ventricular response she was stabilized in the emergency room and was started on IV antibiotics she was given a dose of IV Cardizem and was admitted to telemetry floor for further evaluation and treatment pulmonary consultation and cardiology consultation were requested. On review of system patient is complaining of generalized weakness and shortness of breath with any activity she has occasional cough otherwise she denies any complaints there is no fever or chills no headache or dizziness no chest pain no nausea or vomiting no abdominal pain no diarrhea no blood in the stools no burning with urination no frequency or urgency and no hematuria. No weakness or numbness in any of her extremities no change in vision speech or gait. Her past medical history is significant for history of hypertension, history of atrial fibrillation, history of congestive heart failure, history of diabetes mellitus, history of gastroesophageal reflux disease, history of hypothyroidism, history of osteoarthritis with chronic back pain, and history of depression. Past Medical History Past Medical History: Atrial Fibrillation, Chest Pain / Angina, Heart Failure, Diabetes Mellitus, GERD/Reflux, Hyperlipidemia, Hypertension, Osteoarthritis (OA), Respiratory Disorder, Sleep Apnea/CPAP/BIPAP, Thyroid Disorder Additional Past Medical History / Comment(s): DDD WITH BACK PAIN, OCCASIONAL SWELLING IN FEET, USES C-PAP MACHINE. History of Any Multi-Drug Resistant Organisms: None Reported Past Surgical History: Cholecystectomy, Hysterectomy, Joint Replacement Additional Past Surgical History / Comment(s): EGD for gastric reflux. Excision of lipomas. bilateral cataracts, total knee., Pain clinic procedures. Past Anesthesia/Blood Transfusion Reactions: No Reported Reaction Past Psychological History: Anxiety, Depression Smoking Status: Former smoker Past Alcohol Use History: None Reported Additional Past Alcohol Use History / Comment(s): SMOKED 3 PPD. STARTED SMOKING AGE 15, QUIT 35 YEARS AGO Past Drug Use History: None Reported Additional Drug Use History / Comment(s): . - Past Family History Brother(s) Family Medical History: Congestive Heart Failure (CHF), COPD, Coronary Artery Di sease (CAD), Diabetes Mellitus Daughter(s) Additional Family Medical History / Comment(s): One from MVA Son(s) Family Medical History: Diabetes Mellitus, Hyperlipidemia, Hypertension Sister(s) Family Medical History: Cancer Mother Family Medical History: Dementia Father Family Medical History: COPD Additional Family Medical History / Comment(s): EMPHYSEMA. Medications and Allergies Home Medications Medication Instructions Recorded Confirmed Type Apixaban [Eliquis] 2.5 mg PO BID 02/14/16 03/08/20 History Pantoprazole Sodium [Protonix] 40 mg PO AC-BID 09/14/18 03/08/20 History Cholecalciferol [Vitamin D3 (25 1,000 unit PO DAILY 02/18/20 03/08/20 History Mcg = 1000 Iu)] HYDROcodone/APAP 7.5-325MG [[place] 1 tab PO TID PRN 02/18/20 03/08/20 History 7.5-325] Levothyroxine Sodium [Synthroid] 50 mcg PO DAILY 02/18/20 03/08/20 History Magnesium Oxide 400 mg PO DAILY 02/18/20 03/08/20 History Memantine [Namenda] 5 mg PO BID 02/18/20 03/08/20 History Furosemide [Lasix] 20 mg PO DAILY tab 02/21/20 03/08/20 Rx Ipratropium-Albuterol Nebulize 3 ml INHALATION RT-QID ml 02/21/20 03/08/20 Rx [Duoneb 0.5 mg-3 mg/3 ml Soln] metFORMIN HCL [Glucophage] 850 mg PO AC-BRKFST tab 02/21/20 03/08/20 Rx Escitalopram [Lexapro] 5 mg PO HS 03/08/20 03/08/20 History Fluticasone Propionate [Flonase 1 - 2 spray EA NOSTRIL DAILY PRN 03/08/20 03/08/20 History Allergy Relief] Multivit-Min/FA/Lycopen/Lutein 1 tab PO DAILY 03/08/20 03/08/20 History [Centrum Silver Tablet] diazePAM [Valium] 5 mg PO DAILY 03/08/20 03/08/20 History diazePAM [Valium] 5 mg PO DAILY PRN 03/08/20 03/08/20 History Allergies Allergy/AdvReac Type Severity Reaction Status Date / Time aspirin AdvReac Dyspnea,Nausea/Vomiting,Dizzy,Tingling,Warm Verified 02/18/20 12:16 sensation Physical Exam Vitals: Vital Signs Temp Pulse Pulse Resp BP BP Pulse Ox 03/09/20 08:00 97.5 F L 114 H 21 146/87 94 L 03/09/20 07:40 96 03/09/20 07:30 92 03/09/20 04:00 98.2 F 94 21 136/88 96 03/09/20 00:00 98.1 F 104 H 20 128/56 94 L 03/08/20 20:06 98.0 F 124 H 26 H 126/78 94 L 03/08/20 20:00 98.2 F 122 H 21 128/59 94 L 03/08/20 19:37 108 H 03/08/20 19:28 108 H 03/08/20 19:14 98.2 F 122 H 21 128/59 94 L 03/08/20 19:00 118 H 26 H 130/77 91 L 03/08/20 18:54 111 H 26 H 127/82 91 L 03/08/20 18:01 105 H 30 H 139/73 91 L 03/08/20 17:50 128 H 27 H 142/111 91 L 03/08/20 17:14 111 H 03/08/20 17:08 105 H 03/08/20 16:39 31 H 03/08/20 16:25 97.4 F L 121 H 31 H 147/85 93 L Intake and Output 03/08/20 03/09/20 03/09/20 22:59 06:59 14:59 Other: Voiding Method Toilet Toilet Toilet # Voids 0 0 1 Weight 81.647 kg 82.5 kg In general patient is alert and oriented 3 in no apparent distress HEENT head normocephalic and atraumatic Neck is supple no JVD no goiter no lymphadenopathy Chest exam reveals a few scattered crackles no wheezing Cardiac exam reveals irregular heart sounds S1 and S2 no gallops no murmurs Abdomen is soft nontender no organomegaly was normal bowel sounds Extremity exam reveals no edema no cyanosis or clubbing Neurological examination reveals no gross focal deficit Results CBC & Chem 7: 03/09/20 06:01 03/09/20 06:01 Labs: Abnormal Lab Results - Last 24 Hours (Table) 03/08/20 03/08/20 03/08/20 Range/Units 16:56 17:35 17:35 Lymphocytes # (1.0-4.8) k/uL APTT 20.9 L (22.0-30.0) sec ABG pCO2 58 H (35-45) mmHg ABG pO2 65 L (83-108) mmHg ABG HCO3 35 H (21-25) mmol/L ABG Total CO2 37 H (19-24) mmol/L ABG O2 Saturation 92.7 L (94-97) % Carbon Dioxide 32 H (22-30) mmol/L BUN (7-17) mg/dL Creatinine 0.51 L (0.52-1.04) mg/dL Glucose 212 H (74-99) mg/dL POC Glucose (mg/dL) (75-99) mg/dL 03/08/20 03/09/20 03/09/20 Range/Units 20:56 06:01 06:01 Lymphocytes # 0.6 L (1.0-4.8) k/uL APTT (22.0-30.0) sec ABG pCO2 (35-45) mmHg ABG pO2 (83-108) mmHg ABG HCO3 (21-25) mmol/L ABG Total CO2 (19-24) mmol/L ABG O2 Saturation (94-97) % Carbon Dioxide 31 H (22-30) mmol/L BUN 18 H (7-17) mg/dL Creatinine 0.48 L (0.52-1.04) mg/dL Glucose 249 H (74-99) mg/dL POC Glucose (mg/dL) 311 H (75-99) mg/dL 03/09/20 Range/Units 06:07 Lymphocytes # (1.0-4.8) k/uL APTT (22.0-30.0) sec ABG pCO2 (35-45) mmHg ABG pO2 (83-108) mmHg ABG HCO3 (21-25) mmol/L ABG Total CO2 (19-24) mmol/L ABG O2 Saturation (94-97) % Carbon Dioxide (22-30) mmol/L BUN (7-17) mg/dL Creatinine (0.52-1.04) mg/dL Glucose (74-99) mg/dL POC Glucose (mg/dL) 264 H (75-99) mg/dL Thrombosis Risk Factor Assmnt - Choose All That Apply Any of the Below Risk Factors Present?: Yes Each Factor Represents 1 point: Abnormal pulmonary function (COPD) Other Risk Factors: Yes Each Risk Factor Represents 3 Points: Age 75 years or older Other congenital or acquired thrombophilia - If yes, enter type in comment: No Thrombosis Risk Factor Assessment Total Risk Factor Score: 4 Thrombosis Risk Factor Assessment Level: Moderate Risk Assessment and Plan Plan: 1. Worsening shortness of breath, possible acute COPD exacerbation 2. Right lower lobe infiltrate suggestive of pneumonia 3. Atrial fibrillation was rapid ventricular response 4. Chronic diastolic congestive heart failure 5. [id number] pulmonary hypertension on echocardiogram last month right ventricular systolic pressure was 41.9 6. Underlying history of diabetes mellitus with check hemoglobin A1c 7. Underlying history of hypothyroidism Will check TSH At this time continue with IV antibiotics and inhaled bronchodilators Pulmonary consultation and cardiology consultation requested awaiting input Home medication reviewed and reordered Recheck labs and chest x-ray in a.m. Will follow closely
--- NOTE | 2020-03-09 10:46 | XR ---
EXAMINATION TYPE: XR chest 1V portable DATE OF EXAM: 03/09/2020 COMPARISON: 03/08/2020 HISTORY: Shortness of breath TECHNIQUE: Single frontal view of the chest is obtained. FINDINGS: A diffuse interstitial pattern with bilateral infiltrate and small effusion. Heart is enla rged. Arthropathy of the shoulders with diffuse osteopenia. No pneumothorax. IMPRESSION: 1. Bilateral infiltrate and small effusion is stable correlate for CHF, otherwise consider pneumonia.
--- NOTE | 2020-03-09 11:24 | P.CNPUL ---
History of Present Illness Consult date: 03/09/20 Requesting physician: Kareem Issa Reason for consult: dyspnea, abnormal CXR/CT Chief complaint: Shortness of breath, weakness, lower extremity edema History of present illness: This is a very pleasant 89-year-old female patient who follows with Dr. Ferreira as her primary care provider. She is a history of atrial fibrillation, diabetes mellitus, gastroesophageal reflux disease, hyperlipidemia, hypertension, osteoarthritis, obstructive sleep apnea utilizing BiPAP in the outpatient setting him a former smoker. She presented here to the emergency room yesterday after developing increasing shortness of breath for the past 2-3 days. She had a productive cough. Yellow colored sputum. Chest x-ray revealed infiltrate/atelectasis in the right lung base slight pain increased compared to old exam. No obvious heart failure. Minimal atelectasis of the left midlung. Unchanged. She is seen today in consultation on the selective care unit. She is currently sitting up in a chair at the bedside. Awake and alert in no acute distress. She states she is breathing a bit better today compared to yesterday. But not quite back to her baseline. She has lower extremity edema. She was maintained on Lasix 20 mg by mouth daily in the outpatient setting. She was recently here approximate 2 weeks ago. Echocardiogram at that time revealed preserved left ventricular systolic function with ejection fraction 55-60%. Mild to moderate pulmonary hypertension. White count 7.5. Hemoglobin 11.5. Sodium 139. Potassium 4.9. Creatinine 0.48. Troponins negative 3. ProBNP 1070. Covid screen pending. Review of Systems REVIEW OF SYSTEMS: CONSTITUTIONAL: Positive for increased lower extremity edema and increased weight gain. EYES: Denies change in vision. EARS, NOSE, MOUTH, THROAT: Denies headaches, denies sore throat. CARDIOVASCULAR: Denies chest pain, palpitations or syncopal episodes. RESPIRATORY: Positive for shortness of breath, cough, congestion no hemoptysis. GASTROINTESTINAL: Denies change in appetite, denies abdominal pain GENITOURINARY: Denies hematuria, denies infections. MUSKULOSKELETAL: Denies pain, positive for swelling. INTEGUMENTARY: Denies rash, denies eczema. NEUROLOGICAL: Denies recent memory loss, no recent seizure activity. PSYCHIATRIC: Denies anxiety, denies depression. HEMATOLOGIC/LYMPHATIC: Denies anemia, denies enlarged lymph nodes. Past Medical History Past Medical History: Atrial Fibrillation, Chest Pain / Angina, Heart Failure, Diabetes Mellitus, GERD/Reflux, Hyperlipidemia, Hypertension, Osteoarthritis (OA), Respiratory Disorder, Sleep Apnea/CPAP/BIPAP, Thyroid Disorder Additional Past Medical History / Comment(s): DDD WITH BACK PAIN, OCCASIONAL SWELLING IN FEET, USES C-PAP MACHINE. History of Any Multi-Drug Resistant Organisms: None Reported Past Surgical History: Cholecystectomy, Hysterectomy, Joint Replacement Additional Past Surgical History / Comment(s): EGD for gastric reflux. Excision of lipomas. bilateral cataracts, total knee., Pain clinic procedures. Past Anesthesia/Blood Transfusion Reactions: No Reported Reaction Past Psychological History: Anxiety, Depression Smoking Status: Former smoker Past Alcohol Use History: None Reported Additional Past Alcohol Use History / Comment(s): SMOKED 3 PPD. STARTED SMOKING AGE 15, QUIT 35 YEARS AGO Past Drug Use History: None Reported Additional Drug Use History / Comment(s): . - Past Family History Brother(s) Family Medical History: Congestive Heart Failure (CHF), COPD, Coronary Artery Disease (CAD), Diabetes Mellitus Daughter(s) Additional Family Medical History / Comment(s): One from MVA Son(s) Family Medical History: Diabetes Mellitus, Hyperlipidemia, Hypertension Sister(s) Family Medical History: Cancer Mother Family Medical History: Dementia Father Family Medical History: COPD Additional Family Medical History / Comment(s): EMPHYSEMA. Medications and Allergies Home Medications Medication Instructions Recorded Confirmed Type Apixaban [Eliquis] 2.5 mg PO BID 02/14/16 03/08/20 History Pantoprazole Sodium [Protonix] 40 mg PO AC-BID 09/14/18 03/08/20 History Cholecalciferol [Vitamin D3 (25 1,000 unit PO DAILY 02/18/20 03/08/20 History Mcg = 1000 Iu)] HYDROcodone/APAP 7.5-325MG [[place] 1 tab PO TID PRN 02/18/20 03/08/20 History 7.5-325] Levothyroxine Sodium [Synthroid] 50 mcg PO DAILY 02/18/20 03/08/20 History Magnesium Oxide 400 mg PO DAILY 02/18/20 03/08/20 History Memantine [Namenda] 5 mg PO BID 02/18/20 03/08/20 History Furosemide [Lasix] 20 mg PO DAILY tab 02/21/20 03/08/20 Rx Ipratropium-Albuterol Nebulize 3 ml INHALATION RT-QID ml 02/21/20 03/08/20 Rx [Duoneb 0.5 mg-3 mg/3 ml Soln] metFORMIN HCL [Glucophage] 850 mg PO AC-BRKFST tab 02/21/20 03/08/20 Rx Escitalopram [Lexapro] 5 mg PO HS 03/08/20 03/08/20 History Fluticasone Propionate [Flonase 1 - 2 spray EA NOSTRIL DAILY PRN 03/08/20 03/08/20 History Allergy Relief] Multivit-Min/FA/Lycopen/Lutein 1 tab PO DAILY 03/08/20 03/08/20 History [Centrum Silver Tablet] diazePAM [Valium] 5 mg PO DAILY 03/08/20 03/08/20 History diazePAM [Valium] 5 mg PO DAILY PRN 03/08/20 03/08/20 History Allergies Allergy/AdvReac Type Severity Reaction Status Date / Time aspirin AdvReac Dyspnea,Nausea/Vomiting,Dizzy,Tingling,Warm Verified 02/18/20 12:16 sensation Physical Exam Vitals: Vital Signs Temp Pulse Pulse Resp BP BP Pulse Ox 03/09/20 08:00 97.5 F L 114 H 21 146/87 94 L 03/09/20 07:40 96 03/09/20 07:30 92 03/09/20 04:00 98.2 F 94 21 136/88 96 03/09/20 00:00 98.1 F 104 H 20 128/56 94 L 03/08/20 20:06 98.0 F 124 H 26 H 126/78 94 L 03/08/20 20:00 98.2 F 122 H 21 128/59 94 L 03/08/20 19:37 108 H 03/08/20 19:28 108 H 03/08/20 19:14 98.2 F 122 H 21 128/59 94 L 03/08/20 19:00 118 H 26 H 130/77 91 L 03/08/20 18:54 111 H 26 H 127/82 91 L 03/08/20 18:01 105 H 30 H 139/73 91 L 03/08/20 17:50 128 H 27 H 142/111 91 L 03/08/20 17:14 111 H 03/08/20 17:08 105 H 03/08/20 16:39 31 H 03/08/20 16:25 97.4 F L 121 H 31 H 147/85 93 L Intake and Output 03/08/20 03/09/20 03/09/20 22:59 06:59 14:59 Other: Voiding Method Toilet Toilet Toilet # Voids 0 0 1 Weight 81.647 kg 82.5 kg Elderly obese 89-year-old female patient,no acute distress. On 2 L nasal cannula. Short neck and she has significant crowding of the posterior oropharynx.Neck was supple and without jugular venous distension, thyromegaly, or carotid bruits. Carotids were easily palpable bilaterally. There was no adenopathy.Cardiac exam revealed the PMI to be normally situated and sized. The rhythm was regular and no extrasystoles were noted during several minutes of auscultation. The first and second heart sounds were normal and physiologic splitting of the second heart sound was noted. There were no murmurs, rubs, cl icks, or gallops. Lungs sounds are diminished bilaterally there is some few crackles at lung bases. Heart sounds are irregular, distant, positive S1-S2, no cervical murmurs appreciated. Abdomen is obese soft nontender. There is no direct tenderness. No rebound tenderness or guarding. Extremities show no edema there is no cyanosis or clubbing of this point.Neurologically, the patient is awake and alert and the patient does not have any focal neurological deficit. Cranial nerves are essentially intact. Results - Laboratory Findings CBC and BMP: 03/09/20 06:01 03/09/20 06:01 ABG ABG pH 7.39 (7.35-7.45) 03/08/20 16:56 ABG pCO2 58 mmHg (35-45) H 03/08/20 16:56 ABG pO2 65 mmHg (83-108) L 03/08/20 16:56 ABG O2 Saturation 92.7 % (94-97) L 03/08/20 16:56 PT/INR, D-dimer PT 10.2 sec (9.0-12.0) 03/08/20 17:35 INR 1.0 (<1.2) 03/08/20 17:35 Abnormal lab findings: Abnormal Labs 03/08/20 03/08/20 03/08/20 16:56 17:35 17:35 Lymphocytes # APTT 20.9 L ABG pCO2 58 H ABG pO2 65 L ABG HCO3 35 H ABG Total CO2 37 H ABG O2 Saturation 92.7 L Carbon Dioxide 32 H BUN Creatinine 0.51 L Glucose 212 H POC Glucose (mg/dL) 03/08/20 03/09/20 03/09/20 20:56 06:01 06:01 Lymphocytes # 0.6 L APTT ABG pCO2 ABG pO2 ABG HCO3 ABG Total CO2 ABG O2 Saturation Carbon Dioxide 31 H BUN 18 H Creatinine 0.48 L Glucose 249 H POC Glucose (mg/dL) 311 H 03/09/20 06:07 Lymphocytes # APTT ABG pCO2 ABG pO2 ABG HCO3 ABG Total CO2 ABG O2 Saturation Carbon Dioxide BUN Creatinine Glucose POC Glucose (mg/dL) 264 H - Diagnostic Findings Chest x-ray: image reviewed Assessment and Plan Assessment: 1 acute exacerbation of diastolic congestive heart failure with lower extremity edema 2 acute COPD exacerbation with secondary shortness of breath 3 chronic atrial fibrillation, anticoagulated with Eliquis 4 hypertension, currently under better control 5 obstructive sleep apnea maintained on CPAP therapy 6 morbid obesity 7 recent history of CVA/TIA 8 hyperlipidemia 9 hypertension 10 chronic pain. Maintained on Ultram 11 GE reflux, history of Plan The patient was seen and evaluated by Dr. Aguayo Chest x-ray and labs reviewed Add Lasix 40 mg IV every 12 hours Continue antibiotics and bronchodilators We will continue to follow make further recommendations based on her clinical status I, the cosigning physician, performed a history & physical examination of the patient. Lungs sounds with crackles in the bilateral posterior bases. Maintaining good O2 saturations in the 90s on 2 L/m per nasal cannula. I dis cussed the assessment and plan of care with my nurse practitioner, Migdalia Holguin. I attest to the above consultation as dictated by her. Time with Patient: Greater than 30
[2020-03-09 12:33] LABS: Glucose,Whole Blood 184 mg/dL (75-99)
[2020-03-09] MEDS: FUROSEMIDE 10 MG/ML 4 ML VIAL IV SCH ×2 (16:13→20:48)
[2020-03-09 17:03] LABS: Glucose,Whole Blood 140 mg/dL (75-99)
[2020-03-09] MEDS: PANTOPRAZOLE 40 MG TABLET PO SCH (17:42)
[2020-03-09] MEDS ORDERED: AZITHROMYCIN 500 MG in SODIUM CHLORIDE 0.9% 250 ML IVPB SCH (18:00)
[2020-03-09 19:23] LABS: Hemoglobin A1C 7.3 % (4.0-6.0)
[2020-03-09 20:41] LABS: Glucose,Whole Blood 156 mg/dL (75-99)
[2020-03-09] MEDS: ESCITALOPRAM 5 MG TAB PO SCH (20:47)
[2020-03-09] MEDS: MEMANTINE 5 MG TAB PO SCH (20:48)
[2020-03-10] MEDS: HYDROcodone/APAP 7.5-325MG 1 EACH TAB PO PRN (05:16)
[2020-03-10 06:27] LABS: Glucose,Whole Blood 137 mg/dL (75-99)
[2020-03-10] MEDS: PANTOPRAZOLE 40 MG TABLET PO SCH ×2 (06:35→16:47)
[2020-03-10] MEDS: INSULIN ASPART (NovoLOG) 100 UNIT/ML VIAL SQ SCH ×4 (06:36→20:41)
[2020-03-10] MEDS: LEVOTHYROXINE 50 MCG TAB PO SCH (06:36)
[2020-03-10] MEDS: metFORMIN 850 MG TAB PO SCH (06:36)
[2020-03-10 06:51] LABS: Basophils % (A) 0 %; Eosinophils # (A) 0.1 k/uL (0-0.7); Eosinophils % (A) 1 %; HCT 34.6 % (34.0-46.0); Hypochromasia Slight; Lymphocytes # (A) 2.1 k/uL (1.0-4.8); Lymphocytes % (A) 19 %; MCH 29.2 pg (25.0-35.0); MCHC 31.7 g/dL (31.0-37.0); MCV 92.2 fL (80.0-100.0); Mean Platelet Volume 7.5; Monocytes # (A) 0.5 k/uL (0-1.0); Monocytes % (A) 5 %; Neutrophils # (A) 7.9 k/uL (1.3-7.7); Neutrophils % (A) 74 %; Platelet Count 221 k/uL (150-450); RBC 3.75 m/uL (3.80-5.40); RDW 14.6 % (11.5-15.5); WBC 10.6 k/uL (3.8-10.6)
[2020-03-10 07:07] LABS: ALT 14 U/L (4-34); AST 17 U/L (14-36); African American GFR (CKD) >90 (>60 ml/min/1.73 sqM); Albumin 3.5 g/dL (3.5-5.0); Alkaline Phosphatase 58 U/L (38-126); Anion Gap 5 mmol/L; Blood Urea Nitrogen 23 mg/dL (7-17); Calcium 8.4 mg/dL (8.4-10.2); Carbon Dioxide 40 mmol/L (22-30); Chloride 95 mmol/L (98-107); Glucose 134 mg/dL (74-99); Non-African American GFR(CKD) 81 (>60 ml/min/1.73 sqM); Potassium 3.8 mmol/L (3.5-5.1); Sodium 140 mmol/L (137-145); Total Bilirubin 0.6 mg/dL (0.2-1.3); Total Protein 5.9 g/dL (6.3-8.2)
[2020-03-10] MEDS: IPRATROPIUM-ALBUTEROL 3 ML NEB INHALATION SCH ×4 (07:29→20:20)
[2020-03-10] MEDS: FUROSEMIDE 10 MG/ML 4 ML VIAL IV SCH ×2 (09:37→20:40)
[2020-03-10] MEDS: MAGNESIUM OXIDE 400 MG TAB PO SCH (09:37)
[2020-03-10] MEDS: MULTIVITAMINS, THERA 1 EACH TAB PO SCH (09:37)
[2020-03-10] MEDS: MEMANTINE 5 MG TAB PO SCH ×2 (09:38→20:40)
[2020-03-10] MEDS: APIXABAN 2.5 MG TABLET PO SCH ×2 (09:38→20:40)
[2020-03-10] MEDS: CHOLECALCIFEROL 1,000 UNIT TAB PO SCH (09:38)
[2020-03-10] MEDS: DILTIAZEM CD 180 MG CAP.ER.24H PO SCH (09:38)
[2020-03-10 11:45] LABS: Glucose,Whole Blood 136 mg/dL (75-99)
--- NOTE | 2020-03-10 13:03 | P.PN ---
Subjective Progress Note Date: 03/10/20 03/10/2020 and see the patient for a follow-up. The patient is doing well. On room air oxygen and pulse ox is around 84-5%. She was placed on 2 L oxygen by nasal cannula. She was offered IV Lasix over the past 24 hours. Lower extremity edema is improved. No nausea. No vomiting. No chest pain.the blood cultures negative for now. BUN is at 23 with a creatinine o hemoglobin is at 11.0 with a white cell count of 10.6.f 0.The patient remains on a combination of Rocephin and Zithromax. His serum bicarbs up to 40. Sodium level is at 140. The patient is on long-term articulation with Eliquis regarding her chronic atrial fibrillation. Eliquis is at a dose of 2.5 mg by mouth twice a day. Las ix is being given a dose of 40 mg every 12 hours. No altered mentation. No chest pain. No palpitation. Cardiology on the case. Objective - Vital Signs Vital signs: Vital Signs Temp 97.6 F 03/10/20 08:46 Pulse 86 03/10/20 11:22 Resp 18 03/10/20 08:46 BP 140/76 03/10/20 08:46 Pulse Ox 94 L 03/10/20 08:46 Intake & Output 03/09/20 03/10/20 03/10/20 18:59 06:59 18:59 Intake Total 480 570 Balance 480 570 Intake: Oral 480 570 Other: Voiding Method Toilet Toilet Toilet Diaper Diaper # Voids 4 3 2 # Bowel Movements 1 - Exam Elderly obese 89-year-old female patient,no acute distress. On 2 L nasal cannula. Short neck and she has significant crowding of the posterior oropharynx.Neck was supple and without jugular venous distension, thyromegaly, or carotid bruits. Carotids were easily palpable bilaterally. There was no snehal opathy.Cardiac exam revealed the PMI to be normally situated and sized. The rhythm was regular and no extrasystoles were noted during several minutes of auscultation. The first and second heart sounds were normal and physiologic splitting of the second heart sound was noted. There were no murmurs, rubs, clicks, or gallops. Lungs sounds are diminished bilaterally there is some few crackles at lung bases. Heart sounds are irregular, distant, positive S1-S2, no cervical murmurs appreciated. Abdomen is obese soft nontender. There is no direct tenderness. No rebound tenderness or guarding. Extremities show no edema there is no cyanosis or clubbing of this point.Neurologically, the patient is awake and alert and the patient does not have any focal neurological deficit. Cranial nerves are essentially intact. - Labs CBC & Chem 7: 03/10/20 06:10 03/10/20 06:10 Labs: Abnormal Lab Results - Last 24 Hours (Table) 03/09/20 03/09/20 03/09/20 Range/Units 06:01 16:51 20:35 RBC (3.80-5.40) m/uL Hgb (11.4-16.0) gm/dL Neutrophils # (1.3-7.7) k/uL Chloride (98-107) mmol/L Carbon Dioxide (22-30) mmol/L BUN (7-17) mg/dL Glucose (74-99) mg/dL POC Glucose (mg/dL) 140 H 156 H (75-99) mg/dL Hemoglobin A1c 7.3 H (4.0-6.0) % Total Protein (6.3-8.2) g/dL 03/10/20 03/10/20 03/10/20 Range/Units 06:10 06:10 06:13 RBC 3.75 L (3.80-5.40) m/uL Hgb 11.0 L (11.4-16.0) gm/dL Neutrophils # 7.9 H (1.3-7.7) k/uL Chloride 95 L (98-107) mmol/L Carbon Dioxide 40 H (22-30) mmol/L BUN 23 H (7-17) mg/dL Glucose 134 H (74-99) mg/dL POC Glucose (mg/dL) 137 H (75-99) mg/dL Hemoglobin A1c (4.0-6.0) % Total Protein 5.9 L (6.3-8.2) g/dL 03/10/20 Range/Units 11:42 RBC (3.80-5.40) m/uL Hgb (11.4-16.0) gm/dL Neutrophils # (1.3-7.7) k/uL Chloride (98-107) mmol/L Carbon Dioxide (22-30) mmol/L BUN (7-17) mg/dL Glucose (74-99) mg/dL POC Glucose (mg/dL) 136 H (75-99) mg/dL Hemoglobin A1c (4.0-6.0) % Total Protein (6.3-8.2) g/dL Microbiology - Last 24 Hours (Table) 03/08/20 18:41 Blood Culture - Preliminary Blood No Growth after 24 hours Assessment and Plan Plan: 1 acute exacerbation of diastolic congestive heart failure with lower extremity edema 2 acute COPD exacerbation with secondary shortness of breath 3 chronic atrial fibrillation, anticoagulated with Eliquis 4 hypertension, currently under better control 5 obstructive sleep apnea maintained on CPAP therapy 6 morbid obesity 7 recent history of CVA/TIA 8 hyperlipidemia 9 hypertension 10 chronic pain. Maintained on Ultram 11 GE reflux, history of Plan Clinically improving. Continue same treatment. Repeated blood work in a.m. We'll continue to follow. Less short of breath compared to yesterday.
--- NOTE | 2020-03-10 13:35 | P.CRDCN ---
History of Present Illness Consult date: 03/10/20 History of present illness: CHIEF COMPLAINT: A. fib HISTORY OF PRESENT ILLNESS: 89-year-old female with a history of hypertension, hyperlipidemia, diabetes mellitus,atrial fibrillation, COPD, and CHF who presented to the emergency room secondary to shortness of breath. Patient follows in the office with Dr. Patterson. Patient reports she has been having worsening shortness of breath over the past few days. She reports home o2 use. She reports shortness of breath is worse with exertion. She denies chest pain. She reports an occasional nonproductive cough this morning. She remains in atrial fib. HR 90s. Blood pressure stable. Patient remains on IV Lasix 40 mg every 12 hours. Fluid balance over the last 24 hours is +480 mL. DIAGNOSTICS: EKG reveals atrial fibrillation with RVR Chest xray bilateral infiltrate and small effusion. Correlate for CHF. Otherwise consider pneumonia Laboratory data: WBC 10.6. Hemoglobin 11.0. Platelet count 221. Sodium 140. Potassium 3.8. BUN 23. Creatinine 0.64. TSH 0.535. Lactic acid 2.0. Troponin negative 3. BNP 1070. Current home cardiac medications include Eliquis 2.5 mg twice a day and Lasix 20 mg daily Echocardiogram from January 2020 reveals ejection fraction 55-60%, mild mitral regurgitation, [id number] tricuspid regurgitation, and mild to moderate pulmonary hypertension REVIEW OF SYSTEMS: CONSTITUTIONAL: Denies fever or chills. HEENT: Denies blurred vision, vision changes, or eye pain. Denies hemoptysis CARDIOVASCULAR: Denies chest pain, orthopnea, PND or palpitations RESPIRATORY: Reports shortness of breath. GASTROINTESTINAL: Denies abdominal pain. Denies nausea or vomiting. HEMATOLOGIC: Denies bleeding disorders. GENITOURINARY: Denies any blood in urine. SKIN: Denies pruitis. Denies rash. PHYSICAL EXAM: VITAL SIGNS: Reviewed. GENERAL: Well-developed in no acute distress. HEENT: Head is normocephalic. Pupils are equal, round. Sclerae anicteric. Mucous membranes of the mouth are moist. Neck supple. No JVD or thyromegaly LUNGS: Respirations even and unlabored on nasal cannula. Lungs diminished bilaterally. HEART: Irregular rate and rhythm. S1 and S2 heard. ABDOMEN: Soft. Nondistended. Nontender. EXTREMITIES: Normal range of motion. No clubbing or cyanosis. Peripheral pulses intact. Trace bilateral lower extremity edema NEUROLOGIC: Awake and alert. Oriented x 3. ASSESSMENT: Acute exacerbation of chronic diastolic congestive heart failure Chronic atrial fibrillation, on long-term anticoagulation with Eliquis Acute exacerbation of COPD Hypertension Hyperlipidemia Diabetes mellitus, type II Obstructive sleep apnea Obesity: BMI 39.4 PLAN: Continue home cardiac medications Continue Eliquis for anticoagulation Continue IV Lasix Monitor kidney function Daily weight Accurate I&O Nurse practitioner note has been reviewed by physician. Signing provider agrees with the documented findings, assessment, and plan of care. Past Medical History Past Medical History: Atrial Fibrillation, Chest Pain / Angina, Heart Failure, Diabetes Mellitus, GERD/Reflux, Hyperlipidemia, Hypertension, Osteoarthritis (OA), Respiratory Disorder, Sleep Apnea/CPAP/BIPAP, Thyroid Disorder Additional Past Medical History / Comment(s): DDD WITH BACK PAIN, OCCASIONAL SWELLING IN FEET, USES C-PAP MACHINE. History of Any Multi-Drug Resistant Organisms: None Reported Past Surgical History: Cholecystectomy, Hysterectomy, Joint Replacement Additional Past Surgical History / Comment(s): EGD for gastric reflux. Excision of lipomas. bilateral cataracts, total knee., Pain clinic procedures. Past Anesthesia/Blood Transfusion Reactions: No Reported Reaction Past Psychological History: Anxiety, Depression Smoking Status: Former smoker Past Alcohol Use History: None Reported Additional Past Alcohol Use History / Comment(s): SMOKED 3 PPD. STARTED SMOKING AGE 15, QUIT 35 YEARS AGO Past Drug Use History: None Reported Additional Drug Use History / Comment(s): . - Past Family History Brother(s) Family Medical History: Congestive Heart Failure (CHF), COPD, Coronary Artery Disease (CAD), Diabetes Mellitus Daughter(s) Additional Family Medical History / Comment(s): One from MVA Son(s) Family Medical History: Diabetes Mellitus, Hyperlipidemia, Hypertension Sister(s) Family Medical History: Cancer Mother Family Medical History: Dementia Father Family Medical History: COPD Additional Family Medical History / Comment(s): EMPHYSEMA. Medications and Allergies Home Medications Medication Instructions Recorded Confirmed Type Apixaban [Eliquis] 2.5 mg PO BID 02/14/16 03/08/20 History Pantoprazole Sodium [Protonix] 40 mg PO AC-BID 09/14/18 03/08/20 History Cholecalciferol [Vitamin D3 (25 1,000 unit PO DAILY 02/18/20 03/08/20 History Mcg = 1000 Iu)] HYDROcodone/APAP 7.5-325MG [[place] 1 tab PO TID PRN 02/18/20 03/08/20 History 7.5-325] Levothyroxine Sodium [Synthroid] 50 mcg PO DAILY 02/18/20 03/08/20 History Magnesium Oxide 400 mg PO DAILY 02/18/20 03/08/20 History Memantine [Namenda] 5 mg PO BID 02/18/20 03/08/20 History Furosemide [Lasix] 20 mg PO DAILY tab 02/21/20 03/08/20 Rx Ipratropium-Albuterol Nebulize 3 ml INHALATION RT-QID ml 02/21/20 03/08/20 Rx [Duoneb 0.5 mg-3 mg/3 ml Soln] metFORMIN HCL [Glucophage] 850 mg PO AC-BRKFST tab 02/21/20 03/08/20 Rx Escitalopram [Lexapro] 5 mg PO HS 03/08/20 03/08/20 History Fluticasone Propionate [Flonase 1 - 2 spray EA NOSTRIL DAILY PRN 03/08/20 03/08/20 History Allergy Relief] Multivit-Min/FA/Lycopen/Lutein 1 tab PO DAILY 03/08/20 03/08/20 History [Centrum Silver Tablet] diazePAM [Valium] 5 mg PO DAILY 03/08/20 03/08/20 History diazePAM [Valium] 5 mg PO DAILY PRN 03/08/20 03/08/20 History Allergies Allergy/AdvReac Type Severity Reaction Status Date / Time aspirin AdvReac Dyspnea,Nausea/Vomiting,Dizzy,Tingling,Warm Verified 02/18/20 12:16 sensation Physical Exam Vitals: Vital Signs Temp Pulse Pulse Resp BP Pulse Ox 03/10/20 08:46 97.6 F 92 18 140/76 94 L 03/10/20 07:42 96 03/10/20 07:31 92 03/10/20 04:00 97.6 F 74 19 123/73 95 03/10/20 00:00 97.5 F L 96 19 129/75 95 03/09/20 20:17 94 03/09/20 20:04 94 03/09/20 20:00 97.3 F L 88 19 122/75 97 03/09/20 16:24 96 03/09/20 16:12 98 03/09/20 16:00 97.9 F 89 20 117/71 03/09/20 11:55 96 19 156/95 95 03/09/20 11:49 96 03/09/20 11:40 96 Intake and Output 03/09/20 03/10/20 03/10/20 22:59 06:59 14:59 Intake Total 240 450 Balance 240 450 Intake: Oral 240 450 Other: Voiding Method Toilet Toilet Diaper Diaper # Voids 4 3 Results 03/10/20 06:10 03/10/20 06:10 Cardiac Enzymes 03/10/20 Range/Units 06:10 AST 17 (14-36) U/L CBC 03/10/20 Range/Units 06:10 WBC 10.6 (3.8-10.6) k/uL RBC 3.75 L (3.80-5.40) m/uL Hgb 11.0 L (11.4-16.0) gm/dL Hct 34.6 (34.0-46.0) % Plt Count 221 (150-450) k/uL Comprehensive Metabolic Panel 03/10/20 Range/Units 06:10 Sodium 140 (137-145) mmol/L Potassium 3.8 (3.5-5.1) mmol/L Chloride 95 L (98-107) mmol/L Carbon Dioxide 40 H (22-30) mmol/L BUN 23 H (7-17) mg/dL Creatinine 0.64 (0.52-1.04) mg/dL Glucose 134 H (74-99) mg/dL Calcium 8.4 (8.4-10.2) mg/dL AST 17 (14-36) U/L ALT 14 (4-34) U/L Alkaline Phosphatase 58 (38-126) U/L Total Protein 5.9 L (6.3-8.2) g/dL Albumin 3.5 (3.5-5.0) g/dL Current Medications Generic Name Dose Route Start Last Admin Trade Name Freq PRN Reason Stop Dose Admin Hydrocodone Bitart/Acetaminophen 1 each 03/09/20 09:29 03/10/20 05:16 Hydrocodone/Apap 7.5-325mg 1 Each Tab PO 1 each TID PRN Administration Pain Albuterol/Ipratropium 3 ml 03/08/20 20:00 03/10/20 07:29 Ipratropium-Albuterol 3 Ml Neb INHALATION 3 ml RT-QID HOMA Administration Apixaban 2.5 mg 03/08/20 21:00 03/09/20 20:48 Apixaban 2.5 Mg Tablet PO 2.5 mg BID HOMA Administration Azithromycin 500 mg 03/10/20 18:00 Azithromycin 500 Mg Tab PO 1800 HOMA Cholecalciferol 1,000 unit 03/10/20 09:00 Cholecalciferol 1,000 Unit Tab PO DAILY HOMA Diltiazem HCl 180 mg 03/09/20 09:00 03/09/20 09:31 Diltiazem Cd 180 Mg Cap.Er.24h PO 180 mg DAILY HOMA Administration Escitalopram Oxalate 5 mg 03/09/20 21:00 03/09/20 20:47 Escitalopram 5 Mg Tab PO 5 mg HS HOMA Administration Fluticasone Propionate 1 spray 03/09/20 09:29 Fluticasone 50mcg/[place] Nasal 16gm EA NOSTRIL DAILY PRN Allergy Symptoms Furosemide 40 mg 03/09/20 10:00 03/09/20 20:48 Furosemide 10 Mg/Ml 4 Ml Vial IV 40 mg Q12HR HOMA Administration Ceftriaxone Sodium 1 gm/ 50 mls @ 100 mls/hr 03/09/20 10:00 03/09/20 17:42 Sodium Chloride IVPB 100 mls/hr Q24HR HOMA Administration Insulin Aspart 0 unit 03/09/20 07:30 03/10/20 06:36 Insulin Aspart (Novolog) 100 Unit/Ml Vial SQ Not Given ACHS [facility] Protocol Levothyroxine Sodium 50 mcg 03/09/20 06:30 03/10/20 06:36 Levothyroxine 50 Mcg Tab PO 50 mcg DAILY@0630 HOMA Administration Magnesium Oxide 400 mg 03/10/20 09:00 Magnesium Oxide 400 Mg Tab PO DAILY [facility]OMA Memantine 5 mg 03/09/20 21:00 03/09/20 20:48 Memantine 5 Mg Tab PO 5 mg BID HOMA Administration Metformin HCl 850 mg 03/09/20 07:30 03/10/20 06:36 Metformin 850 Mg Tab PO 850 mg AC-BRKFST [facility] Administration Multivitamins 1 each 03/10/20 09:00 Multivitamins, Thera 1 Each Tab PO DAILY HOMA Pantoprazole Sodium 40 mg 03/09/20 17:30 03/10/20 06:35 Pantoprazole 40 Mg Tablet PO 40 mg AC-BID HOMA Administration Intake and Output 03/09/20 03/10/20 03/10/20 22:59 06:59 14:59 Intake Total 240 450 Balance 240 450 Intake: Oral 240 450 Other: Voiding Method Toilet Toilet Diaper Diaper # Voids 4 3 03/10/20 06:10 03/10/20 06:10
[2020-03-10] MEDS: AZITHROMYCIN 500 MG TAB PO SCH (16:47)
[2020-03-10 16:59] LABS: Glucose,Whole Blood 154 mg/dL (75-99)
--- NOTE | 2020-03-10 18:50 | P.PN ---
Subjective Progress Note Date: 03/10/20 Joyce Davis is an 89-year-old female who presented to [facility] emergency room with a chief complaint of shortness of breath and worsening weakness she was evaluated in the emergency room she had evidence of right lower lobe lung infiltrate suggestive of pneumonia, she also had evidence of atrial fibrillation with rapid ventricular response she was stabilized in the emergency room and was started on IV antibiotics she was given a dose of IV Cardizem and was admitted to telemetry floor for further evaluation and treatment pulmonary consultation and cardiology consultation were requested. On review of system patient is complaining of generalized weakness and shortness of breath with any activity she has occasional cough otherwise she denies any complaints there is no fever or chills no headache or dizziness no chest pain no nausea or vomiting no abdominal pain no diarrhea no blood in the stools no burning with urination no frequency or urgency and no hematuria. No weakness or numbness in any of her extremities no change in vision speech or gait. Her past medical history is significant for history of hypertension, history of atrial fibrillation, history of congestive heart failure, history of diabetes mellitus, history of gastroesophageal reflux disease, history of hypothyroidism, history of osteoarthritis with chronic back pain, and history of depression. On 03/10/2020 patient was seen and examined on the telemetry floor she is alert and oriented 3 in no apparent distress she is complaining of shortness of breath slightly better since yesterday she has occasional cough otherwise she denies any complaints there is no fever or chills no headache or dizziness no chest pain no nausea or vomiting no abdominal pain no diarrhea no burning with urination no frequency or urgency and no hematuria Objective - Vital Signs Vital signs: Vital Signs Temp 97.6 F 03/10/20 08:46 Pulse 88 03/10/20 16:28 Resp 16 03/10/20 16:00 BP 143/63 03/10/20 16:00 Pulse Ox 94 L 03/10/20 08:46 Intake & Output 03/09/20 03/10/20 03/10/20 18:59 06:59 18:59 Intake Total 480 690 Balance 480 690 Intake: Oral 480 690 Other: Voiding Method Toilet Toilet Toilet Diaper Diaper # Voids 4 3 1 # Bowel Movements 1 - Exam In general patient is alert and oriented 3 in no apparent distress HEENT head normocephalic and atraumatic Neck is supple no JVD no goiter no lymphadenopathy Chest exam reveals a few scattered crackles no wheezing Cardiac exam reveals irregular heart sounds S1 and S2 no gallops no murmurs Abdomen is soft nontender no organomegaly was normal bowel sounds Extremity exam reveals no edema no cyanosis or clubbing Neurological examination reveals no gross focal deficit - Labs CBC & Chem 7: 03/10/20 06:10 03/10/20 06:10 Labs: Abnormal Lab Results - Last 24 Hours (Table) 03/09/20 03/09/20 03/10/20 Range/Units 06:01 20:35 06:10 RBC 3.75 L (3.80-5.40) m/uL Hgb 11.0 L (11.4-16.0) gm/dL Neutrophils # 7.9 H (1.3-7.7) k/uL Chloride (98-107) mmol/L Carbon Dioxide (22-30) mmol/L BUN (7-17) mg/dL Glucose (74-99) mg/dL POC Glucose (mg/dL) 156 H (75-99) mg/dL Hemoglobin A1c 7.3 H (4.0-6.0) % Total Protein (6.3-8.2) g/dL 03/10/20 03/10/20 03/10/20 Range/Units 06:10 06:13 11:42 RBC (3.80-5.40) m/uL Hgb (11.4-16.0) gm/dL Neutrophils # (1.3-7.7) k/uL Chloride 95 L (98-107) mmol/L Carbon Dioxide 40 H (22-30) mmol/L BUN 23 H (7-17) mg/dL Glucose 134 H (74-99) mg/dL POC Glucose (mg/dL) 137 H 136 H (75-99) mg/dL Hemoglobin A1c (4.0-6.0) % Total Protein 5.9 L (6.3-8.2) g/dL 03/10/20 Range/Units 16:57 RBC (3.80-5.40) m/uL Hgb (11.4-16.0) gm/dL Neutrophils # (1.3-7.7) k/uL Chloride (98-107) mmol/L Carbon Dioxide (22-30) mmol/L BUN (7-17) mg/dL Glucose (74-99) mg/dL POC Glucose (mg/dL) 154 H (75-99) mg/dL Hemoglobin A1c (4.0-6.0) % Total Protein (6.3-8.2) g/dL Microbiology - Last 24 Hours (Table) 03/08/20 18:41 Blood Culture - Preliminary Blood No Growth after 24 hours Assessment and Plan Plan: 1. Worsening shortness of breath, acute COPD exacerbation 2. Right lower lobe infiltrate suggestive of pneumonia 3. Atrial fibrillation was rapid ventricular response 4. Acute on Chronic diastolic congestive heart failure exacerbation, seen by cardiology started on IV Lasix 5. [id number] pulmonary hypertension on echocardiogram last month right ventricular systolic pressure was 41.9 6. Underlying history of diabetes mellitus with check hemoglobin A1c 7. Underlying history of hypothyroidism Will check TSH At this time continue with IV antibiotics and inhaled bronchodilators Pulmonary consultation and cardiology consultation requested awaiting input Home medication reviewed and reordered Recheck labs and chest x-ray in a.m. Will follow closely
[2020-03-10 20:18] LABS: Glucose,Whole Blood 139 mg/dL (75-99)
[2020-03-10] MEDS: ESCITALOPRAM 5 MG TAB PO SCH (20:40)
[2020-03-11 06:30] LABS: Glucose,Whole Blood 130 mg/dL (75-99)
[2020-03-11] MEDS: INSULIN ASPART (NovoLOG) 100 UNIT/ML VIAL SQ SCH ×4 (06:30→21:20)
[2020-03-11] MEDS: metFORMIN 850 MG TAB PO SCH (06:36)
[2020-03-11] MEDS: PANTOPRAZOLE 40 MG TABLET PO SCH ×2 (06:37→17:39)
[2020-03-11] MEDS: LEVOTHYROXINE 50 MCG TAB PO SCH (06:37)
[2020-03-11 07:23] LABS: Basophils % (A) 0 %; Eosinophils # (A) 0.1 k/uL (0-0.7); Eosinophils % (A) 1 %; HCT 39.7 % (34.0-46.0); HGB 12.1 gm/dL (11.4-16.0); Hypochromasia Slight; Lymphocytes % (A) 22 %; MCH 27.8 pg (25.0-35.0); MCHC 30.5 g/dL (31.0-37.0); MCV 91.3 fL (80.0-100.0); Mean Platelet Volume 7.5; Monocytes # (A) 0.5 k/uL (0-1.0); Monocytes % (A) 6 %; Neutrophils # (A) 6.5 k/uL (1.3-7.7); Neutrophils % (A) 70 %; Platelet Count 241 k/uL (150-450); RBC 4.35 m/uL (3.80-5.40); RDW 14.5 % (11.5-15.5); WBC 9.3 k/uL (3.8-10.6)
[2020-03-11 07:45] LABS: ALT 17 U/L (4-34); AST 25 U/L (14-36); African American GFR (CKD) >90 (>60 ml/min/1.73 sqM); Albumin 3.9 g/dL (3.5-5.0); Alkaline Phosphatase 63 U/L (38-126); Blood Urea Nitrogen 21 mg/dL (7-17); Calcium 8.9 mg/dL (8.4-10.2); Chloride 93 mmol/L (98-107); Glucose 136 mg/dL (74-99); Non-African American GFR(CKD) 81 (>60 ml/min/1.73 sqM); Potassium 3.9 mmol/L (3.5-5.1); Sodium 140 mmol/L (137-145); Total Bilirubin 0.8 mg/dL (0.2-1.3); Total Protein 6.4 g/dL (6.3-8.2)
[2020-03-11 07:52] LABS: Anion Gap 5 mmol/L
[2020-03-11 08:20] LABS: Carbon Dioxide 42 mmol/L (22-30)
[2020-03-11] MEDS: IPRATROPIUM-ALBUTEROL 3 ML NEB INHALATION SCH ×4 (08:31→20:21)
[2020-03-11] MEDS: DILTIAZEM CD 180 MG CAP.ER.24H PO SCH (09:07)
[2020-03-11] MEDS: APIXABAN 2.5 MG TABLET PO SCH ×2 (09:07→21:20)
[2020-03-11] MEDS: FUROSEMIDE 10 MG/ML 4 ML VIAL IV SCH (09:07)
[2020-03-11] MEDS: CHOLECALCIFEROL 1,000 UNIT TAB PO SCH (09:07)
[2020-03-11] MEDS: MULTIVITAMINS, THERA 1 EACH TAB PO SCH (09:07)
[2020-03-11] MEDS: MEMANTINE 5 MG TAB PO SCH ×2 (09:07→21:20)
[2020-03-11] MEDS: MAGNESIUM OXIDE 400 MG TAB PO SCH (09:07)
--- NOTE | 2020-03-11 09:15 | P.PN ---
Subjective Progress Note Date: 03/11/20 Joyce Davis is an 89-year-old female who presented to [facility] emergency room with a chief complaint of shortness of breath and worsening weakness she was evaluated in the emergency room she had evidence of right lower lobe lung infiltrate suggestive of pneumonia, she also had evidence of atrial fibrillation with rapid ventricular response she was stabilized in the emergency room and was started on IV antibiotics she was given a dose of IV Cardizem and was admitted to telemetry floor for further evaluation and treatment pulmonary consultation and cardiology consultation were requested. On review of system patient is complaining of generalized weakness and shortness of breath with any activity she has occasional cough otherwise she denies any complaints there is no fever or chills no headache or dizziness no chest pain no nausea or vomiting no abdominal pain no diarrhea no blood in the stools no burning with urination no frequency or urgency and no hematuria. No weakness or numbness in any of her extremities no change in vision speech or gait. Her past medical history is significant for history of hypertension, history of atrial fibrillation, history of congestive heart failure, history of diabetes mellitus, history of gastroesophageal reflux disease, history of hypothyroidism, history of osteoarthritis with chronic back pain, and history of depression. On 03/10/2020 patient was seen and examined on the telemetry floor she is alert and oriented 3 in no apparent distress she is complaining of shortness of breath slightly better since yesterday she has occasional cough otherwise she denies any complaints there is no fever or chills no headache or dizziness no chest pain no nausea or vomiting no abdominal pain no diarrhea no burning with urination no frequency or urgency and no hematuria. On 03/11/2020 patient was seen and examined on the medical floor she is alert and oriented 3 in no distress she is still complaining of cough and shortness of breath otherwise she denies any complaints, CO2 is more elevated at 42 today. There is no fever or chills no headache or dizziness no chest pain no nausea or vomiting no abdominal pain no diarrhea no blood in the stools no burning with urination no frequency or urgency and no hematuria. Diamox 250 mg by mouth twice a day was added to her regimen Will monitor closely recheck labs in a.m. Objective - Vital Signs Vital signs: Vital Signs Temp 98.5 F 03/11/20 00:00 Pulse 92 03/11/20 08:41 Resp 20 03/11/20 04:00 BP 172/96 03/11/20 04:00 Pulse Ox 94 L 03/11/20 08:31 Intake & Output 03/10/20 03/11/20 03/11/20 18:59 06:59 18:59 Intake Total 930 120 Output Total 100 Balance 930 -100 120 Weight 81.9 kg Intake: Oral 930 120 Output: Urine 100 Other: Voiding Method Toilet Toilet Diaper Diaper # Voids 1 1 1 # Bowel Movements 1 - Exam In general patient is alert and oriented 3 in no apparent distress HEENT head normocephalic and atraumatic Neck is supple no JVD no goiter no lymphadenopathy Chest exam reveals a few scattered crackles no wheezing Cardiac exam reveals irregular heart sounds S1 and S2 no gallops no murmurs Abdomen is soft nontender no organomegaly was normal bowel sounds Extremity exam reveals no edema no cyanosis or clubbing Neurological examination reveals no gross focal deficit - Labs CBC & Chem 7: 03/11/20 06:38 03/11/20 06:38 Labs: Abnormal Lab Results - Last 24 Hours (Table) 03/10/20 03/10/20 03/10/20 Range/Units 11:42 16:57 20:17 MCHC (31.0-37.0) g/dL Chloride (98-107) mmol/L Carbon Dioxide (22-30) mmol/L BUN (7-17) mg/dL Glucose (74-99) mg/dL POC Glucose (mg/dL) 136 H 154 H 139 H (75-99) mg/dL 03/11/20 03/11/20 03/11/20 Range/Units 06:29 06:38 06:38 MCHC 30.5 L (31.0-37.0) g/dL Chloride 93 L (98-107) mmol/L Carbon Dioxide 42 H* (22-30) mmol/L BUN 21 H (7-17) mg/dL Glucose 136 H (74-99) mg/dL POC Glucose (mg/dL) 130 H (75-99) mg/dL Microbiology - Last 24 Hours (Table) 03/08/20 18:41 Blood Culture - Preliminary Blood No Growth after 48 hours Assessment and Plan Plan: 1. Worsening shortness of breath, acute COPD exacerbation, with evidence of acute on chronic hypoxic and hypercapnic respiratory failure 2. Right lower lobe infiltrate suggestive of pneumonia, repeat chest x-ray reveals by basilar infiltrates with small pleural effusions 3. Atrial fibrillation was rapid ventricular response 4. Acute on Chronic diastolic congestive heart failure exacerbation, seen by cardiology started on IV Lasix 5. [id number] pulmonary hypertension on echocardiogram last month right ventricular systolic pressure was 41.9 6. Underlying history of diabetes mellitus with check hemoglobin A1c 7. Underlying history of hypothyroidism Will check TSH At this time continue with IV antibiotics and inhaled bronchodilators Pulmonary consultation and cardiology consultation requested awaiting input Home medication reviewed and reordered Recheck labs and chest x-ray in a.m. Will follow closely
--- NOTE | 2020-03-11 11:03 | P.PN ---
Subjective Progress Note Date: 03/11/20 CHIEF COMPLAINT: A. fib HISTORY OF PRESENT ILLNESS: Patient examined this morning at the bedside. She denies chest pain. She thinks her shortness of breath has improved, however she states she has not been out of bed yet this morning to walk around. She remains on 2L NC. BP 129/50. HR 80s-90s. PHYSICAL EXAM: VITAL SIGNS: Reviewed. GENERAL: Well-developed in no acute distress. HEENT: Head is normocephalic. Pupils are equal, round. Sclerae anicteric. Mucous membranes of the mouth are moist. Neck supple. No JVD or thyromegaly LUNGS: Respirations even and unlabored on nasal cannula. Lungs diminished bilaterally, no rales noted. HEART: Irregular rate and rhythm. S1 and S2 heard. ABDOMEN: Soft. Nondistended. Nontender. EXTREMITIES: Normal range of motion. No clubbing or cyanosis. Peripheral pulses intact. Trace bilateral lower extremity edema NEUROLOGIC: Awake and alert. Oriented x 3. ASSESSMENT: Acute exacerbation of chronic diastolic congestive heart failure, echo from 01/2020 reveals EF 55-60% Chronic atrial fibrillation, on long-term anticoagulation with Eliquis Acute exacerbation of COPD Hypertension Hyperlipidemia Diabetes mellitus, type II Obstructive sleep apnea Obesity: BMI 39.4 PLAN: Continue home cardiac medications Continue Eliquis for anticoagulation Discontinue IV Lasix Begin Lasix PO 40mg daily Monitor kidney function Daily weight Accurate I&O Nurse practitioner note has been reviewed by physician. Signing provider agrees with the documented findings, assessment, and plan of care. Objective - Vital Signs Vital signs: Vital Signs Temp 97.8 F 03/11/20 08:00 Pulse 92 03/11/20 08:41 Resp 22 03/11/20 08:00 BP 129/80 03/11/20 08:00 Pulse Ox 94 L 03/11/20 08:31 Intake & Output 03/10/20 03/11/20 03/11/20 18:59 06:59 18:59 Intake Total 930 120 Output Total 100 Balance 930 -100 120 Weight 81.9 kg Intake: Oral 930 120 Output: Urine 100 Other: Voiding Method Toilet Toilet Toilet Diaper Diaper Diaper # Voids 1 1 1 # Bowel Movements 1 - Labs CBC & Chem 7: 03/11/20 06:38 03/11/20 06:38 Labs: Abnormal Lab Results - Last 24 Hours (Table) 03/10/20 03/10/20 03/10/20 Range/Units 11:42 16:57 20:17 MCHC (31.0-37.0) g/dL Chloride (98-107) mmol/L Carbon Dioxide (22-30) mmol/L BUN (7-17) mg/dL Glucose (74-99) mg/dL POC Glucose (mg/dL) 136 H 154 H 139 H (75-99) mg/dL 03/11/20 03/11/20 03/11/20 Range/Units 06:29 06:38 06:38 MCHC 30.5 L (31.0-37.0) g/dL Chloride 93 L (98-107) mmol/L Carbon Dioxide 42 H* (22-30) mmol/L BUN 21 H (7-17) mg/dL Glucose 136 H (74-99) mg/dL POC Glucose (mg/dL) 130 H (75-99) mg/dL Microbiology - Last 24 Hours (Table) 03/08/20 18:41 Blood Culture - Preliminary Blood No Growth after 48 hours
[2020-03-11] MEDS: acetaZOLAMIDE 250 MG TAB PO SCH ×2 (11:31→21:20)
[2020-03-11 11:47] LABS: Glucose,Whole Blood 155 mg/dL (75-99)
--- NOTE | 2020-03-11 12:14 | P.PN ---
Subjective Progress Note Date: 03/11/20 Principal diagnosis: Acute exacerbation of diastolic CHF 03/10/2020 and see the patient for a follow-up. The patient is doing well. On room air oxygen and pulse ox is around 84-5%. She was placed on 2 L oxygen by nasal cannula. She was offered IV Lasix over the past 24 hours. Lower extremity edema is improved. No nausea. No vomiting. No chest pain.the blood cultures negative for now. BUN is at 23 with a creatinine o hemoglobin is at 11.0 with a white cell count of 10.6.f 0.The patient remains on a combination of Rocephin and Zithromax. His serum bicarbs up to 40. Sodium level is at 140. The patient is on long-term articulation with Eliquis regarding her chronic atrial fibrillation. Eliquis is at a dose of 2.5 mg by mouth twice a day. Lasix is being given a dose of 40 mg every 12 hours. No altered mentation. No chest pain. No palpitation. Cardiology on the case. On 03/11/2020 patient seen in follow-up on selective care unit, she is alert, in no acute distress, she continues to diurese, her weight is down by 0.6 in the last 24 hours. Today's labs have been reviewed, sodium is 140, potassium is 3.9, chloride is 93, CO2 is 42, BUN is 21 creatinine 0.63. Follow-up chest x- ray has been reviewed showing some improved aeration at the bilateral bases, and some improvement in the appearance of interstitial edema. Still has some residual pleural effusions. Current Lasix dose is 40 mg once daily Objective - Vital Signs Vital signs: Vital Signs Temp 97.8 F 03/11/20 08:00 Pulse 90 03/11/20 11:56 Resp 22 03/11/20 08:00 BP 129/80 03/11/20 08:00 Pulse Ox 94 L 03/11/20 08:31 Intake & Output 03/10/20 03/11/20 03/11/20 18:59 06:59 18:59 Intake Total 930 120 Output Total 100 Balance 930 -100 120 Weight 81.9 kg Intake: Oral 930 120 Output: Urine 100 Other: Voiding Method Toilet Toilet Toilet Diaper Diaper Diaper # Voids 1 1 1 # Bowel Movements 1 - Exam GENERAL EXAM: Alert, very pleasant, 89-year-old female on 2 L of oxygen with pulse ox of 96%, comfortable in no apparent distress. HEAD: Normocephalic/atraumatic. EYES: Normal reaction of pupils, equal size. Conjunctiva pink, sclera white. NOSE: Clear with pink turbinates. THROAT: No erythema or exudates. NECK: No masses, no JVD, no thyroid enlargement, no adenopathy. CHEST: No chest wall deformity. Symmetrical expansion. LUNGS: Diminished air entry with some basilar crackles, but no wheeze, rhonchi or dullness. CVS: Regular rate and rhythm, normal S1 and S2, no gallops, no murmurs, no rubs ABDOMEN: Soft, nontender. No hepatosplenomegaly, normal bowel sounds, no guarding or rigidity. EXTREMITIES: No clubbing, no edema, no cyanosis, 2+ pulses and upper and lower extremities. MUSCULOSKELETAL: Muscle strength and tone normal. SPINE: No scoliosis or deformity SKIN: No rashes CENTRAL NERVOUS SYSTEM: Alert and oriented -3. No focal deficits, tone is normal in all 4 extremities. PSYCHIATRIC: Alert and oriented -3. Appropriate affect. Intact judgment and insight. - Labs CBC & Chem 7: 03/11/20 06:38 03/11/20 06:38 Labs: Abnormal Lab Results - Last 24 Hours (Table) 03/10/20 03/10/20 03/11/20 Range/Units 16:57 20:17 06:29 MCHC (31.0-37.0) g/dL Chloride (98-107) mmol/L Carbon Dioxide (22-30) mmol/L BUN (7-17) mg/dL Glucose (74-99) mg/dL POC Glucose (mg/dL) 154 H 139 H 130 H (75-99) mg/dL 03/11/20 03/11/20 03/11/20 Range/Units 06:38 06:38 11:27 MCHC 30.5 L (31.0-37.0) g/dL Chloride 93 L (98-107) mmol/L Carbon Dioxide 42 H* (22-30) mmol/L BUN 21 H (7-17) mg/dL Glucose 136 H (74-99) mg/dL POC Glucose (mg/dL) 155 H (75-99) mg/dL Microbiology - Last 24 Hours (Table) 03/08/20 18:41 Blood Culture - Preliminary Blood No Growth after 48 hours Assessment and Plan Plan: Assessment: 1 acute exacerbation of diastolic congestive heart failure with lower extremity edema 2 acute COPD exacerbation with secondary shortness of breath 3 chronic atrial fibrillation, anticoagulated with Eliquis 4 hypertension, currently under better control 5 obstructive sleep apnea maintained on CPAP therapy 6 morbid obesity 7 recent history of CVA/TIA 8 hyperlipidemia 9 hypertension 10 chronic pain. Maintained on Ultram 11 GE reflux, history of Plan: Continue diuretics, patient is maintaining negative fluid balance, chest x-ray findings are improving, this activity as tolerated, daily weights and follow up electrolytes. Vital signs are stable, no complaints of chest pain. No wheezing, no rhonchi, patient remains on empiric antibiotic coverage, she has had no fever or chills. I performed a history & physical examination of the patient and discussed their management with my nurse practitioner, Blaire Hernandez. I reviewed the nurse practitioner's note and agree with the documented findings and plan of care. Lung sounds are positive for diminished breath sounds. The findings and the impression was discussed with the patient. I attest to the documentation by the nurse practitioner. Time with Patient: Less than 30
[2020-03-11 17:23] LABS: Glucose,Whole Blood 189 mg/dL (75-99)
[2020-03-11] MEDS: AZITHROMYCIN 500 MG TAB PO SCH (17:39)
[2020-03-11 20:57] LABS: Glucose,Whole Blood 138 mg/dL (75-99)
[2020-03-11] MEDS: ESCITALOPRAM 5 MG TAB PO SCH (21:20)
[2020-03-12] MEDS: HYDROcodone/APAP 7.5-325MG 1 EACH TAB PO PRN (01:17)
[2020-03-12 06:26] LABS: Glucose,Whole Blood 157 mg/dL (75-99)
[2020-03-12] MEDS: INSULIN ASPART (NovoLOG) 100 UNIT/ML VIAL SQ SCH ×4 (06:30→21:18)
[2020-03-12] MEDS: metFORMIN 850 MG TAB PO SCH (06:30)
[2020-03-12] MEDS: LEVOTHYROXINE 50 MCG TAB PO SCH (06:30)
[2020-03-12] MEDS: PANTOPRAZOLE 40 MG TABLET PO SCH ×2 (06:30→17:38)
[2020-03-12] MEDS: IPRATROPIUM-ALBUTEROL 3 ML NEB INHALATION SCH ×4 (08:04→20:43)
[2020-03-12] MEDS: APIXABAN 2.5 MG TABLET PO SCH ×2 (08:37→21:18)
[2020-03-12] MEDS: DILTIAZEM CD 180 MG CAP.ER.24H PO SCH (08:37)
[2020-03-12] MEDS: CHOLECALCIFEROL 1,000 UNIT TAB PO SCH (08:37)
[2020-03-12] MEDS: MEMANTINE 5 MG TAB PO SCH ×2 (08:37→21:18)
[2020-03-12] MEDS: MULTIVITAMINS, THERA 1 EACH TAB PO SCH (08:37)
[2020-03-12] MEDS: MAGNESIUM OXIDE 400 MG TAB PO SCH (08:37)
[2020-03-12] MEDS: acetaZOLAMIDE 250 MG TAB PO SCH ×2 (08:37→21:18)
[2020-03-12] MEDS: FUROSEMIDE 40 MG TAB PO SCH (08:37)
[2020-03-12 08:44] LABS: Basophils % (A) 0 %; Eosinophils % (A) 0 %; HCT 44.5 % (34.0-46.0); HGB 13.9 gm/dL (11.4-16.0); Hypochromasia Slight; Lymphocytes # (A) 2.5 k/uL (1.0-4.8); Lymphocytes % (A) 26 %; MCH 28.3 pg (25.0-35.0); MCHC 31.2 g/dL (31.0-37.0); MCV 90.5 fL (80.0-100.0); Mean Platelet Volume 7.5; Monocytes # (A) 0.5 k/uL (0-1.0); Monocytes % (A) 6 %; Neutrophils # (A) 6.3 k/uL (1.3-7.7); Neutrophils % (A) 67 %; Platelet Count 278 k/uL (150-450); RBC 4.92 m/uL (3.80-5.40); RDW 14.3 % (11.5-15.5); WBC 9.4 k/uL (3.8-10.6)
[2020-03-12 09:03] LABS: Calcium 9.5 mg/dL (8.4-10.2); Potassium 3.9 mmol/L (3.5-5.1); Total Bilirubin 0.8 mg/dL (0.2-1.3); Total Protein 6.6 g/dL (6.3-8.2)
[2020-03-12 11:25] LABS: Glucose,Whole Blood 232 mg/dL (75-99)
--- NOTE | 2020-03-12 12:13 | P.PN ---
Subjective Progress Note Date: 03/12/20 Principal diagnosis: Acute exacerbation of diastolic CHF 03/10/2020 and see the patient for a follow-up. The patient is doing well. On room air oxygen and pulse ox is around 84-5%. She was placed on 2 L oxygen by nasal cannula. She was offered IV Lasix over the past 24 hours. Lower extremity edema is improved. No nausea. No vomiting. No chest pain.the blood cultures negative for now. BUN is at 23 with a creatinine o hemoglobin is at 11.0 with a white cell count of 10.6.f 0.The patient remains on a combination of Rocephin and Zithromax. His serum bicarbs up to 40. Sodium level is at 140. The patient is on long-term articulation with Eliquis regarding her chronic atrial fibrillation. Eliquis is at a dose of 2.5 mg by mouth twice a day. Lasix is being given a dose of 40 mg every 12 hours. No altered mentation. No chest pain. No palpitation. Cardiology on the case. On 03/11/2020 patient seen in follow-up on selective care unit, she is alert, in no acute distress, she continues to diurese, her weight is down by 0.6 in the last 24 hours. Today's labs have been reviewed, sodium is 140, potassium is 3.9, chloride is 93, CO2 is 42, BUN is 21 creatinine 0.63. Follow-up chest x- ray has been reviewed showing some improved aeration at the bilateral bases, and some improvement in the appearance of interstitial edema. Still has some residual pleural effusions. Current Lasix dose is 40 mg once daily On patient seen in follow-up on selective care unit. She is resting in bed, in no acute distress, no worsening dyspnea, lung sounds are positive for diminished breath sounds, with some crackles at the bases, currently on 2 L of oxygen pulse ox is 96%, she's been afebrile, no complaints of chest pain. Remains on Zithromax, her Lasix dose was cut back to once daily dose of Lasix, Diamox was added for rising CO2 related to metabolic alkalosis related to diuresis, no acute events overnight. Patient remains in A. fib with a controlle d rate, Eliquis for anticoagulation continues. Increase activity as tolerated, patient has been ambulating to the bathroom with a walker tolerating activity fairly well, Objective - Vital Signs Vital signs: Vital Signs Temp 97.6 F 03/12/20 11:22 Pulse 91 03/12/20 11:22 Resp 18 03/12/20 11:22 BP 119/78 03/12/20 11:22 Pulse Ox 96 03/12/20 11:22 Intake & Output 03/11/20 03/12/20 03/12/20 18:59 06:59 18:59 Intake Total 330 118 Output Total 220 Balance 330 -220 118 Weight 80.5 kg Intake: Oral 330 118 Output: Urine 220 Other: Voiding Method Toilet Toilet Toilet Diaper Diaper Diaper # Voids 1 1 # Bowel Movements 1 1 - Exam GENERAL EXAM: Alert, very pleasant, 89-year-old female on 2 L of oxygen with pulse ox of 96%, comfortable in no apparent distress. HEAD: Normocephalic/atraumatic. EYES: Normal reaction of pupils, equal size. Conjunctiva pink, sclera white. NOSE: Clear with pink turbinates. THROAT: No erythema or exudates. NECK: No masses, no JVD, no thyroid enlargement, no adenopathy. CHEST: No chest wall deformity. Symmetrical expansion. LUNGS: Diminished air entry with some basilar crackles, but no wheeze, rhonchi or dullness. CVS: Regular rate and rhythm, normal S1 and S2, no gallops, no murmurs, no rubs ABDOMEN: Soft, nontender. No hepatosplenomegaly, normal bowel sounds, no gu arding or rigidity. EXTREMITIES: No clubbing, no edema, no cyanosis, 2+ pulses and upper and lower e xtremities. MUSCULOSKELETAL: Muscle strength and tone normal. SPINE: No scoliosis or deformity SKIN: No rashes CENTRAL NERVOUS SYSTEM: Alert and oriented -3. No focal deficits, tone is normal in all 4 extremities. PSYCHIATRIC: Alert and oriented -3. Appropriate affect. Intact judgment and insight. - Labs CBC & Chem 7: 03/12/20 07:33 03/12/20 07:33 Labs: Abnormal Lab Results - Last 24 Hours (Table) 03/11/20 03/11/20 03/12/20 Range/Units 16:50 20:55 06:25 Chloride (98-107) mmol/L Carbon Dioxide (22-30) mmol/L BUN (7-17) mg/dL Glucose (74-99) mg/dL POC Glucose (mg/dL) 189 H 138 H 157 H (75-99) mg/dL 03/12/20 03/12/20 Range/Units 07:33 11:24 Chloride 96 L (98-107) mmol/L Carbon Dioxide 36 H (22-30) mmol/L BUN 19 H (7-17) mg/dL Glucose 141 H (74-99) mg/dL POC Glucose (mg/dL) 232 H (75-99) mg/dL Microbiology - Last 24 Hours (Table) 03/08/20 18:41 Blood Culture - Preliminary Blood No Growth after 72 hours Assessment and Plan Plan: Assessment: 1 acute exacerbation of diastolic congestive heart failure with lower extremity edema 2 acute COPD exacerbation with secondary shortness of breath 3 chronic atrial fibrillation, anticoagulated with Eliquis 4 hypertension, currently under better control 5 obstructive sleep apnea maintained on CPAP therapy 6 morbid obesity 7 recent history of CVA/TIA 8 hyperlipidemia 9 hypertension 10 chronic pain. Maintained on Ultram 11 GE reflux, history of Plan: Continue oral diuretics, wean FiO2, increase activity as tolerated, no lower extremity edema, A. fib is controlled, patient continues on oral anticoagulation, she is maintaining negative fluid balance, her breathing has improved, fluid volume status has improved, from pulmonary perspective patient could be considered for discharge home today I performed a history & physical examination of the patient and discussed their management with my nurse practitioner, Blaire Hernandez. I reviewed the nurse practitioner's note and agree with the documented findings and plan of care. Lung sounds are positive for diminished breath sounds. The findings and the impression was discussed with the patient. I attest to the documentation by the nurse practitioner. Time with Patient: Less than 30
--- NOTE | 2020-03-12 12:51 | P.PN ---
Subjective Progress Note Date: 03/12/20 CHIEF COMPLAINT: A. fib HISTORY OF PRESENT ILLNESS: Patient examined this morning at the bedside. She denies chest pain. Her shortness of breath has improved. Vital signs are stable. She remains in atrial fibrillation with a controlled rate. PHYSICAL EXAM: VITAL SIGNS: Reviewed. GENERAL: Well-developed in no acute distress. HEENT: Head is normocephalic. Pupils are equal, round. Sclerae anicteric. Mucous membranes of the mouth are moist. Neck supple. No JVD or thyromegaly LUNGS: Respirations even and unlabored on nasal cannula. Lungs diminished bilaterally. HEART: Irregular rate and rhythm. S1 and S2 heard. ABDOMEN: Soft. Nondistended. Nontender. EXTREMITIES: Normal range of motion. No clubbing or cyanosis. Peripheral pulse s intact. No lower extremity edema NEUROLOGIC: Awake and alert. Oriented x 3. ASSESSMENT: Acute exacerbation of chronic diastolic congestive heart failure, echo from 01/2020 reveals EF 55-60% Permanent atrial fibrillation, on long-term anticoagulation with Eliquis Acute exacerbation of COPD Hypertension Hyperlipidemia Diabetes mellitus, type II Obstructive sleep apnea Obesity: BMI 39.4 PLAN: Continue home cardiac medications Continue Eliquis for anticoagulation Continue oral lasix Monitor kidney function Daily weight Accurate I&O Stable for discharge from a cardiac perspective. Will defer to internal medicine Nurse practitioner note has been reviewed by physician. Signing provider agrees with the documented findings, assessment, and plan of care. Objective - Vital Signs Vital signs: Vital Signs Temp 97.6 F 03/12/20 11:22 Pulse 91 03/12/20 11:22 Resp 18 03/12/20 11:22 BP 119/78 03/12/20 11:22 Pulse Ox 96 03/12/20 11:22 Intake & Output 03/11/20 03/12/20 03/12/20 18:59 06:59 18:59 Intake Total 330 118 Output Total 220 Balance 330 -220 118 Weight 80.5 kg Intake: Oral 330 118 Output: Urine 220 Other: Voiding Method Toilet Toilet Toilet Diaper Diaper Diaper # Voids 1 1 # Bowel Movements 1 1 - Labs CBC & Chem 7: 03/12/20 07:33 03/12/20 07:33 Labs: Abnormal Lab Results - Last 24 Hours (Table) 03/11/20 03/11/20 03/12/20 Range/Units 16:50 20:55 06:25 Chloride (98-107) mmol/L Carbon Dioxide (22-30) mmol/L BUN (7-17) mg/dL Glucose (74-99) mg/dL POC Glucose (mg/dL) 189 H 138 H 157 H (75-99) mg/dL 03/12/20 03/12/20 Range/Units 07:33 11:24 Chloride 96 L (98-107) mmol/L Carbon Dioxide 36 H (22-30) mmol/L BUN 19 H (7-17) mg/dL Glucose 141 H (74-99) mg/dL POC Glucose (mg/dL) 232 H (75-99) mg/dL Microbiology - Last 24 Hours (Table) 03/08/20 18:41 Blood Culture - Preliminary Blood No Growth after 72 hours
--- NOTE | 2020-03-12 13:17 | P.PN ---
Subjective Progress Note Date: 03/12/20 Joyce Davis is an 89-year-old female who presented to [facility] emergency room with a chief complaint of shortness of breath and worsening weakness she was evaluated in the emergency room she had evidence of right lower lobe lung infiltrate suggestive of pneumonia, she also had evidence of atrial fibrillation with rapid ventricular response she was stabilized in the emergency room and was started on IV antibiotics she was given a dose of IV Cardizem and was admitted to telemetry floor for further evaluation and treatment pulmonary consultation and cardiology consultation were requested. On review of system patient is complaining of generalized weakness and shortness of breath with any activity she has occasional cough otherwise she denies any complaints there is no fever or chills no headache or dizziness no chest pain no nausea or vomiting no abdominal pain no diarrhea no blood in the stools no burning with urination no frequency or urgency and no hematuria. No weakness or numbness in any of her extremities no change in vision speech or gait. Her past medical history is significant for history of hypertension, history of atrial fibrillation, history of congestive heart failure, history of diabetes mellitus, history of gastroesophageal reflux disease, history of hypothyroidism, history of osteoarthritis with chronic back pain, and history of depression. On 03/10/2020 patient was seen and examined on the telemetry floor she is alert and oriented 3 in no apparent distress she is complaining of shortness of breath slightly better since yesterday she has occasional cough otherwise she denies any complaints there is no fever or chills no headache or dizziness no chest pain no nausea or vomiting no abdominal pain no diarrhea no burning with urination no frequency or urgency and no hematuria. On 03/11/2020 patient was seen and examined on the medical floor she is alert and oriented 3 in no distress she is still complaining of cough and shortness of breath otherwise she denies any complaints, CO2 is more elevated at 42 today. There is no fever or chills no headache or dizziness no chest pain no nausea or vomiting no abdominal pain no diarrhea no blood in the stools no burning with urination no frequency or urgency and no hematuria. Diamox 250 mg by mouth twice a day was added to her regimen Will monitor closely recheck labs in a.m. On 03/12/2020 Patient is alert and oriented X 3. Currently sitting up on in chair. CO2 has improved to 36. did discuss case with pulmonary teamno signs of infection per liane [employer]. Patient denies chest pain or shortness of breath. Denies nausea vomitting or diarrhea. Denies any urinary burning or frequency. P atient being followed by cardiology and pulmonary services. Objective - Vital Signs Vital signs: Vital Signs Temp 97.6 F 03/12/20 11:22 Pulse 91 03/12/20 11:22 Resp 18 03/12/20 11:22 BP 119/78 03/12/20 11:22 Pulse Ox 96 03/12/20 11:22 Intake & Output 03/11/20 03/12/20 03/12/20 18:59 06:59 18:59 Intake Total 330 118 Output Total 220 Balance 330 -220 118 Weight 80.5 kg Intake: Oral 330 118 Output: Urine 220 Other: Voiding Method Toilet Toilet Toilet Diaper Diaper Diaper # Voids 1 1 # Bowel Movements 1 1 - Exam In general patient is alert and oriented 3 in no apparent distress HEENT head normocephalic and atraumatic Neck is supple no JVD no goiter no lymphadenopathy Chest exam reveals a few scattered crackles no wheezing Cardiac exam reveals irregular heart sounds S1 and S2 no gallops no murmurs Abdomen is soft nontender no organomegaly was normal bowel sounds Extremity exam reveals no edema no cyanosis or clubbing Neurological examination reveals no gross focal deficit - Labs CBC & Chem 7: 03/12/20 07:33 03/12/20 07:33 Labs: Abnormal Lab Results - Last 24 Hours (Table) 03/11/20 03/11/20 03/12/20 Range/Units 16:50 20:55 06:25 Chloride (98-107) mmol/L Carbon Dioxide (22-30) mmol/L BUN (7-17) mg/dL Glucose (74-99) mg/dL POC Glucose (mg/dL) 189 H 138 H 157 H (75-99) mg/dL 03/12/20 03/12/20 Range/Units 07:33 11:24 Chloride 96 L (98-107) mmol/L Carbon Dioxide 36 H (22-30) mmol/L BUN 19 H (7-17) mg/dL Glucose 141 H (74-99) mg/dL POC Glucose (mg/dL) 232 H (75-99) mg/dL Microbiology - Last 24 Hours (Table) 03/08/20 18:41 Blood Culture - Preliminary Blood No Growth after 72 hours Assessment and Plan Assessment: 1. Worsening shortness of breath, acute COPD exacerbation, with evidence of acute on chronic hypoxic and hypercapnic respiratory failure. CO2 improving to 36 2. Right lower lobe infiltrate suggestive of pneumonia, repeat chest x-ray reveals by basilar infiltrates with small pleural effusions. Discussed case with pulmonary team likely noninfectious. No need for antibiotics per pulmonary. 3. Atrial fibrillation was rapid ventricular response. Maintained on eliquis 4. Acute on Chronic diastolic congestive heart failure exacerbation, seen by cardiology started on IV Lasix. Patient switch over to by mouth Lasix per cardiology 5. [id number] pulmonary hypertension on echocardiogram last month right ventricular systolic pressure was 41.9 6. Underlying history of diabetes mellitus with check hemoglobin A1c 7. Underlying history of hypothyroidism. TSH level 0.535 DVT prophylaxis eliquis. GI prophylaxis Protonix Cardiology and pulmonary service is following I performed an examination of the patient and discussed their management with the Nurse Practitioner. I have reviewed the Nurse Practitioner's notes and a gree with the documented findings and plan of care
--- NOTE | 2020-03-12 13:48 | XR ---
EXAMINATION TYPE: XR chest 1V DATE OF EXAM: 03/11/2020 COMPARISON: 03/09/2020 HISTORY: 89-year-old female COPD TECHNIQUE: Single frontal view of the chest is obtained. FINDINGS: Heart mildly enlarged. Mild diffuse interstitial density. Mild patchy lower lung opacity, improved fr om 03/09/2020. IMPRESSION: Mild cardiomegaly and improving bibasilar consolidation, possible improving pneumonitis versus resolving pulmonary edema.
[2020-03-12 16:21] LABS: Glucose,Whole Blood 103 mg/dL (75-99)
[2020-03-12] MEDS: AZITHROMYCIN 500 MG TAB PO SCH (17:38)
[2020-03-12 20:41] LABS: Glucose,Whole Blood 207 mg/dL (75-99)
[2020-03-12] MEDS: ESCITALOPRAM 5 MG TAB PO SCH (21:18)
[2020-03-13 06:31] LABS: Glucose,Whole Blood 131 mg/dL (75-99)
[2020-03-13] MEDS: PANTOPRAZOLE 40 MG TABLET PO SCH (07:02)
[2020-03-13] MEDS: metFORMIN 850 MG TAB PO SCH (07:02)
[2020-03-13] MEDS: LEVOTHYROXINE 50 MCG TAB PO SCH (07:02)
[2020-03-13] MEDS: INSULIN ASPART (NovoLOG) 100 UNIT/ML VIAL SQ SCH ×2 (07:02→12:30)
[2020-03-13 08:44] LABS: Basophils % (A) 0 %; Eosinophils % (A) 0 %; HCT 42.2 % (34.0-46.0); Hypochromasia Moderate; Lymphocytes # (A) 2.4 k/uL (1.0-4.8); Lymphocytes % (A) 27 %; MCH 28.4 pg (25.0-35.0); MCHC 30.8 g/dL (31.0-37.0); MCV 92.3 fL (80.0-100.0); Mean Platelet Volume 7.4; Monocytes # (A) 0.5 k/uL (0-1.0); Monocytes % (A) 6 %; Neutrophils # (A) 5.8 k/uL (1.3-7.7); Neutrophils % (A) 66 %; Platelet Count 275 k/uL (150-450); RBC 4.57 m/uL (3.80-5.40); RDW 14.2 % (11.5-15.5); WBC 8.8 k/uL (3.8-10.6)
[2020-03-13 08:54] LABS: Albumin 3.6 g/dL (3.5-5.0); Calcium 8.9 mg/dL (8.4-10.2); Potassium 3.7 mmol/L (3.5-5.1); Total Bilirubin 0.6 mg/dL (0.2-1.3); Total Protein 6.1 g/dL (6.3-8.2)
[2020-03-13] MEDS: IPRATROPIUM-ALBUTEROL 3 ML NEB INHALATION SCH ×3 (08:55→15:52)
[2020-03-13 09:53] VITALS: RESP 18; TEMP 97.7
[2020-03-13] MEDS: FUROSEMIDE 40 MG TAB PO SCH (09:53)
[2020-03-13] MEDS: APIXABAN 2.5 MG TABLET PO SCH (09:53)
[2020-03-13] MEDS: CHOLECALCIFEROL 1,000 UNIT TAB PO SCH (09:54)
[2020-03-13] MEDS: MEMANTINE 5 MG TAB PO SCH (09:54)
[2020-03-13] MEDS: MAGNESIUM OXIDE 400 MG TAB PO SCH (09:54)
[2020-03-13] MEDS: acetaZOLAMIDE 250 MG TAB PO SCH (09:54)
[2020-03-13] MEDS: MULTIVITAMINS, THERA 1 EACH TAB PO SCH (09:54)
[2020-03-13] MEDS: DILTIAZEM CD 180 MG CAP.ER.24H PO SCH (09:54)
--- NOTE | 2020-03-13 12:17 | P.PN ---
Subjective Progress Note Date: 03/13/20 Principal diagnosis: Acute exacerbation of diastolic CHF 03/10/2020 and see the patient for a follow-up. The patient is doing well. On room air oxygen and pulse ox is around 84-5%. She was placed on 2 L oxygen by nasal cannula. She was offered IV Lasix over the past 24 hours. Lower extremity edema is improved. No nausea. No vomiting. No chest pain.the blood cultures negative for now. BUN is at 23 with a creatinine o hemoglobin is at 11.0 with a white cell count of 10.6.f 0.The patient remains on a combination of Rocephin and Zithromax. His serum bicarbs up to 40. Sodium level is at 140. The patient is on long-term articulation with Eliquis regarding her chronic atrial fibrillation. Eliquis is at a dose of 2.5 mg by mouth twice a day. Lasix is being given a dose of 40 mg every 12 hours. No altered mentation. No chest pain. No palpitation. Cardiology on the case. On 03/11/2020 patient seen in follow-up on selective care unit, she is alert, in no acute distress, she continues to diurese, her weight is down by 0.6 in the last 24 hours. Today's labs have been reviewed, sodium is 140, potassium is 3.9, chloride is 93, CO2 is 42, BUN is 21 creatinine 0.63. Follow-up chest x- ray has been reviewed showing some improved aeration at the bilateral bases, and some improvement in the appearance of interstitial edema. Still has some residual pleural effusions. Current Lasix dose is 40 mg once daily On 03/12/2020 patient seen in follow-up on selective care unit. She is resting in bed, in no acute distress, no worsening dyspnea, lung sounds are positive for diminished breath sounds, with some crackles at the bases, currently on 2 L of oxygen pulse ox is 96%, she's been afebrile, no complaints of chest pain. Remains on Zithromax, her Lasix dose was cut back to once daily dose of Lasix, Diamox was added for rising CO2 related to metabolic alkalosis related to diuresis, no acute events overnight. Patient remains in A. fib with a controll ed rate, Eliquis for anticoagulation continues. Increase activity as tolerated, patient has been ambulating to the bathroom with a walker tolerating activity fairly well On 03/13/2020 patient seen in follow-up on selective care unit. She is calm and comfortable, on 2 L of oxygen pulse ox of 93%, hemodynamically stable, she's had no fever or chills, no worsening dyspnea. Remains on azithromycin and Rocephin for empiric antibiotic coverage, remains on Lasix, currently on 40 mg once daily. Continues on Diamox at 250 mg twice daily. Today's labs have been reviewed, showing no evidence of leukocytosis, with blood cell count is 8.8, hemoglobin is 13, sodium is 140, potassium is 3.7, chloride is 99, CO2 37, B1 of 22 creatinine 0.96. No acute events overnight, patient has been working with physical therapy. No rhonchi or wheezing or chest pain no significant chest congestion. Objective - Vital Signs Vital signs: Vital Signs Temp 97.7 F 03/13/20 09:52 Pulse 90 03/13/20 09:52 Resp 18 03/13/20 09:52 BP 147/70 03/13/20 09:52 Pulse Ox 93 L 03/13/20 09:52 Intake & Output 03/12/20 03/13/20 03/13/20 18:59 06:59 18:59 Intake Total 398 Balance 398 Weight 82.5 kg Intake: IV 100 cefTRIAXone 1 gm In 100 Sodium Chloride 0.9% 50 ml @ 100 mls/hr IVPB Q24HR [facility] Rx#:[id number] Oral 298 Other: Voiding Method Toilet Toilet Toilet Diaper Diaper Diaper # Voids 4 - Exam GENERAL EXAM: Alert, very pleasant, 89-year-old female on 2 L of oxygen with pulse ox of 93%, comfortable in no apparent distress. HEAD: Normocephalic/atraumatic. EYES: Normal reaction of pupils, equal size. Conjunctiva pink, sclera white. NOSE: Clear with pink turbinates. THROAT: No erythema or exudates. NECK: No masses, no JVD, no thyroid enlargement, no adenopathy. CHEST: No chest wall deformity. Symmetrical expansion. LUNGS: Diminished air entry with some basilar crackles, but no wheeze, rhonchi or dullness. CVS: Regular rate and rhythm, normal S1 and S2, no gallops, no murmurs, no rubs ABDOMEN: Soft, nontender. No hepatosplenomegaly, normal bowel sounds, no guarding or rigidity. EXTREMITIES: No clubbing, no edema, no cyanosis, 2+ pulses and upper and lower extremities. MUSCULOSKELETAL: Muscle strength and tone normal. SPINE: No scoliosis or deformity SKIN: No rashes CENTRAL NERVOUS SYSTEM: Alert and oriented -3. No focal deficits, tone is normal in all 4 extremities. PSYCHIATRIC: Alert and oriented -3. Appropriate affect. Intact judgment and insight. - Labs CBC & Chem 7: 03/13/20 08:27 03/13/20 08:27 Labs: Abnormal Lab Results - Last 24 Hours (Table) 03/12/20 03/12/20 03/13/20 Range/Units 16:18 20:40 06:30 MCHC (31.0-37.0) g/dL Carbon Dioxide (22-30) mmol/L BUN (7-17) mg/dL Glucose (74-99) mg/dL POC Glucose (mg/dL) 103 H 207 H 131 H (75-99) mg/dL Total Protein (6.3-8.2) g/dL 03/13/20 03/13/20 Range/Units 08:27 08:27 MCHC 30.8 L (31.0-37.0) g/dL Carbon Dioxide 37 H (22-30) mmol/L BUN 22 H (7-17) mg/dL Glucose 134 H (74-99) mg/dL POC Glucose (mg/dL) (75-99) mg/dL Total Protein 6.1 L (6.3-8.2) g/dL Microbiology - Last 24 Hours (Table) 03/08/20 18:41 Blood Culture - Preliminary Blood No Growth after 96 hours Assessment and Plan Plan: Assessment: 1 acute exacerbation of diastolic congestive heart failure with lower extremity edema 2 acute COPD exacerbation with secondary shortness of breath 3 chronic atrial fibrillation, anticoagulated with Eliquis 4 hypertension, currently under better control 5 obstructive sleep apnea maintained on CPAP therapy 6 morbid obesity 7 recent history of CVA/TIA 8 hyperlipidemia 9 hypertension 10 chronic pain. Maintained on Ultram 11 GE reflux, history of Plan: Patient is doing well, no acute events overnight, no fever or chills, she has been transitioned to oral diuretics, continues on empiric antibiotics, vital signs have been stable, increase activity as tolerated, from pulmonary perspective patient can be considered for discharge home today. I performed a history & physical examination of the patient and discussed their management with my nurse practitioner, Blaire Hernandez. I reviewed the nurse practitioner's note and agree with the documented findings and plan of care. Lung sounds are positive for diminished breath sounds. The findings and the impression was discussed with the patient. I attest to the documentation by the nurse practitioner. Time with Patient: Less than 30
[2020-03-13 12:25] VITALS: BP 134/78
[2020-03-13 12:28] LABS: Glucose,Whole Blood 142 mg/dL (75-99)
--- NOTE | 2020-03-13 14:06 | P.PN ---
Subjective Progress Note Date: 03/13/20 CHIEF COMPLAINT: A. fib HISTORY OF PRESENT ILLNESS: Patient examined this morning at the bedside. She denies chest pain. Her shortness of breath has improved. Vital signs are stable. Patient states she is going home today. PHYSICAL EXAM: VITAL SIGNS: Reviewed. GENERAL: Well-developed in no acute distress. HEENT: Head is normocephalic. Pupils are equal, round. Sclerae anicteric. Mucous membranes of the mouth are moist. Neck supple. No JVD or thyromegaly LUNGS: Respirations even and unlabored on nasal cannula. Lungs diminished bilat erally. HEART: Irregular rate and rhythm. S1 and S2 heard. ABDOMEN: Soft. Nondistended. Nontender. EXTREMITIES: Normal range of motion. No clubbing or cyanosis. Peripheral pulses intact. No lower extremity edema NEUROLOGIC: Awake and alert. Oriented x 3. ASSESSMENT: Acute exacerbation of chronic diastolic congestive heart failure, echo from 01/2020 reveals EF 55-60% Permanent atrial fibrillation, on long-term anticoagulation with Eliquis Acute exacerbation of COPD Hypertension Hyperlipidemia Diabetes mellitus, type II Obstructive sleep apnea Obesity: BMI 39.4 PLAN: Continue current medical regimen Monitor kidney function Daily weight Accurate I&O Stable for discharge from a cardiac perspective. Will defer to internal medicine Nurse practitioner note has been reviewed by physician. Signing provider agrees with the documented findings, assessment, and plan of care. Objective - Vital Signs Vital signs: Vital Signs Temp 97.7 F 03/13/20 09:52 Pulse 86 03/13/20 12:16 Resp 18 03/13/20 09:52 BP 134/78 03/13/20 12:00 Pulse Ox 96 03/13/20 12:00 Intake & Output 03/12/20 03/13/20 03/13/20 18:59 06:59 18:59 Intake Total 398 Output Total 300 Balance 398 -300 Weight 82.5 kg Intake: IV 100 cefTRIAXone 1 gm In 100 Sodium Chloride 0.9% 50 ml @ 100 mls/hr IVPB Q24HR [facility] Rx#:[id number] Oral 298 Output: Urine 300 Other: Voiding Method Toilet Toilet Toilet Diaper Diaper Diaper # Voids 4 - Labs CBC & Chem 7: 03/13/20 08:27 03/13/20 08:27 Labs: Abnormal Lab Results - Last 24 Hours (Table) 03/12/20 03/12/20 03/13/20 Range/Units 16:18 20:40 06:30 MCHC (31.0-37.0) g/dL Carbon Dioxide (22-30) mmol/L BUN (7-17) mg/dL Glucose (74-99) mg/dL POC Glucose (mg/dL) 103 H 207 H 131 H (75-99) mg/dL Total Protein (6.3-8.2) g/dL 03/13/20 03/13/20 03/13/20 Range/Units 08:27 08:27 12:19 MCHC 30.8 L (31.0-37.0) g/dL Carbon Dioxide 37 H (22-30) mmol/L BUN 22 H (7-17) mg/dL Glucose 134 H (74-99) mg/dL POC Glucose (mg/dL) 142 H (75-99) mg/dL Total Protein 6.1 L (6.3-8.2) g/dL Microbiology - Last 24 Hours (Table) 03/08/20 18:41 Blood Culture - Preliminary Blood No Growth after 96 hours
--- NOTE | 2020-03-13 15:28 | P.DS ---
Providers Date of admission: 03/08/20 18:46 Expected date of discharge: 03/13/20 Attending physician: Kareem Issa Consults: 03/09/20 09:32 Consult Physician Routine Consulting Provider: Ventura Aguayo Consult Reason/Comments: COPD Do you want consulting provider notified?: Yes 03/09/20 09:33 Consult Physician Routine Consulting Provider: Suleman Tejada Consult Reason/Comments: a fib Do you want consulting provider notified?: Yes Primary care physician: Martha Ferreira Hospital Course: Diagnosis on discharge: 1. Worsening shortness of breath, acute COPD exacerbation, with evidence of acute on chronic hypoxic and hypercapnic respiratory failure. CO2 improving to 36 2. Right lower lobe infiltrate suggestive of pneumonia, repeat chest x-ray reveals by basilar infiltrates with small pleural effusions. Discussed case with pulmonary team likely noninfectious. No need for antibiotics per pulmonary. 3. Atrial fibrillation was rapid ventricular response. Maintained on eliquis 4. Acute on Chronic diastolic congestive heart failure exacerbation, seen by cardiology started on IV Lasix. Patient switch over to by mouth Lasix per cardiology 5. [id number] pulmonary hypertension on echocardiogram last month right ventricular systolic pressure was 41.9 6. Underlying history of diabetes mellitus with check hemoglobin A1c 7. Underlying history of hypothyroidism. TSH level 0.535 Hospital course: Joyce Davis is an 89-year-old female who presented to [facility] emergency room with a chief complaint of shortness of breath and worsening weakness she was evaluated in the emergency room she had evidence of right lower lobe lung infiltrate suggestive of pneumonia, she also had evidence of atrial fibrillation with rapid ventricular response she was stabilized in the emergency room and was started on IV antibiotics she was given a dose of IV Cardizem and was admitted to telemetry floor for further evaluation and treatment pulmonary consultation and cardiology consultation were requested. On review of system patient is complaining of generalized weakness and shortness of breath with any activity she has occasional cough otherwise she denies any complaints there is no fever or chills no headache or dizziness no chest pain no nausea or vomiting no abdominal pain no diarrhea no blood in the stools no burning with urination no frequency or urgency and no hematuria. No weakness or numbness in any of her extremities no change in vision speech or gait. Her past medical history is significant for history of hypertension, history of atrial fibrillation, history of congestive heart failure, history of diabetes mellitus, history of gastroesophageal reflux disease, history of hypothyroidism, history of osteoarthritis with chronic back pain, and history of depression. On 03/10/2020 patient was seen and examined on the telemetry floor she is alert and oriented 3 in no apparent distress she is complaining of shortness of breath slightly better since yesterday she has occasional cough otherwise she denies any complaints there is no fever or chills no headache or dizziness no chest pain no nausea or vomiting no abdominal pain no diarrhea no burning with urination no frequency or urgency and no hematuria. On 03/11/2020 patient was seen and examined on the medical floor she is alert and oriented 3 in no distress she is still complaining of cough and shortness of breath otherwise she denies any complaints, CO2 is more elevated at 42 today. There is no fever or chills no headache or dizziness no chest pain no nausea or vomiting no abdominal pain no diarrhea no blood in the stools no burning with urination no frequency or urgency and no hematuria. Diamox 250 mg by mouth twice a day was added to her regimen Will monitor closely recheck labs in a.m. On 03/12/2020 Patient is alert and oriented X 3. Currently sitting up on in chair. CO2 has improved to 36. 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 Patient denies chest pain or shortness of breath. Denies nausea vomitting or diarrhea. Denies any urinary burning or frequency. Patient being followed by cardiology and pulmonary services. On 03/13/2020 patient was seen and examined on the medical floor she is alert and oriented 3 in no apparent distress her breathing has improved significantly, however she is still complaining of generalized weakness she was having difficulty ambulating with physical therapy she was counseled in length and at this time she is agreeable to go to [facility] for rehab. Otherwise patient denies any complaints there is no fever or chills no headache or dizziness no chest pain no shortness of breath no cough no nausea or vomiting no abdominal pain no diarrhea and no urinary symptoms. Patient Condition at Discharge: Stable Plan - Discharge Summary Discharge Rx Participant: No New Discharge Prescriptions: New Diltiazem Cd [Cardizem CD] 180 mg PO DAILY cap.er.24h Cefuroxime Axetil [Ceftin] 500 mg PO BID 7 Days #14 tab Furosemide [Lasix] 40 mg PO DAILY tab Continue Apixaban [Eliquis] 2.5 mg PO BID Pantoprazole Sodium [Protonix] 40 mg PO AC-BID Cholecalciferol [Vitamin D3 (25 Mcg = 1000 Iu)] 1,000 unit PO DAILY HYDROcodone/APAP 7.5-325MG [[place] 7.5-325] 1 tab PO TID PRN PRN Reason: Pain Levothyroxine Sodium [Synthroid] 50 mcg PO DAILY Magnesium Oxide 400 mg PO DAILY Memantine [Namenda] 5 mg PO BID Ipratropium-Albuterol Nebulize [Duoneb 0.5 mg-3 mg/3 ml Soln] 3 ml INHALATION RT-QID ml metFORMIN HCL [Glucophage] 850 mg PO AC-BRKFST tab diazePAM [Valium] 5 mg PO DAILY diazePAM [Valium] 5 mg PO DAILY PRN PRN Reason: muscle pain/dizziness Multivit-Min/FA/Lycopen/Lutein [Centrum Silver Tablet] 1 tab PO DAILY Escitalopram [Lexapro] 5 mg PO HS Fluticasone Propionate [Flonase Allergy Relief] 1 - 2 spray EA NOSTRIL DAILY PRN PRN Reason: Allergy Symptoms Discontinued Furosemide [Lasix] 20 mg PO DAILY tab Discharge Medication List Apixaban [Eliquis] 2.5 mg PO BID 02/14/16 [History] Pantoprazole Sodium [Protonix] 40 mg PO AC-BID 09/14/18 [History] Cholecalciferol [Vitamin D3 (25 Mcg = 1000 Iu)] 1,000 unit PO DAILY 02/18/20 [History] HYDROcodone/APAP 7.5-325MG [[place] 7.5-325] 1 tab PO TID PRN 02/18/20 [History] Levothyroxine Sodium [Synthroid] 50 mcg PO DAILY 02/18/20 [History] Magnesium Oxide 400 mg PO DAILY 02/18/20 [History] Memantine [Namenda] 5 mg PO BID 02/18/20 [History] Ipratropium-Albuterol Nebulize [Duoneb 0.5 mg-3 mg/3 ml Soln] 3 ml INHALATION RT-QID ml 02/21/20 [Rx] metFORMIN HCL [Glucophage] 850 mg PO AC-BRKFST tab 02/21/20 [Rx] Escitalopram [Lexapro] 5 mg PO HS 03/08/20 [History] Fluticasone Propionate [Flonase Allergy Relief] 1 - 2 spray EA NOSTRIL DAILY PRN 03/08/20 [History] Multivit-Min/FA/Lycopen/Lutein [Centrum Silver Tablet] 1 tab PO DAILY 03/08/20 [History] diazePAM [Valium] 5 mg PO DAILY 03/08/20 [History] diazePAM [Valium] 5 mg PO DAILY PRN 03/08/20 [History] Cefuroxime Axetil [Ceftin] 500 mg PO BID 7 Days #14 tab 03/13/20 [Rx] Diltiazem Cd [Cardizem CD] 180 mg PO DAILY cap.er.24h 03/13/20 [Rx] Furosemide [Lasix] 40 mg PO DAILY tab 03/13/20 [Rx] Follow up Appointment(s)/Referral(s): Martha Ferreira MD [Primary Care Provider] - 1-2 days [facility], [NON-STAFF] -
[2020-03-13 16:00] VITALS: PULSE 93
[2020-03-13] MEDS: AZITHROMYCIN 500 MG TAB PO SCH (16:08)
[2020-03-13 17:13] LABS: Glucose,Whole Blood 183 mg/dL (75-99)
== END 2020-03-13 17:53 | DRG 291 ==
LOC: EC 16:20 → 3SCARD 18:46
PROVIDERS: ADMIT Internal Medicine; ATTEND Internal Medicine
DX: I11.0 Hypertensive heart disease with heart failure (principal); J18.9 Pneumonia, unspecified organism; J96.21 Acute and chronic respiratory failure with hypoxia; J96.22 Acute and chronic respiratory failure with hypercapnia; J44.0 Chronic obstructive pulmonary disease with (acute) lower respiratory infection; J44.1 Chronic obstructive pulmonary disease with (acute) exacerbation; J98.11 Atelectasis; E87.3 Alkalosis; I48.21 Permanent atrial fibrillation; I50.33 Acute on chronic diastolic (congestive) heart failure; E03.9 Hypothyroidism, unspecified; E11.9 Type 2 diabetes mellitus without complications; E66.01 Morbid (severe) obesity due to excess calories; E78.5 Hyperlipidemia, unspecified; T50.2X5A Adverse effect of carbonic-anhydrase inhibitors, benzothiadiazides and other diuretics, initial encounter; F32.9 Major depressive disorder, single episode, unspecified; F41.9 Anxiety disorder, unspecified; G47.33 Obstructive sleep apnea (adult) (pediatric); Z99.89 Dependence on other enabling machines and devices; G89.29 Other chronic pain; I27.20 Pulmonary hypertension, unspecified; K21.9 Gastro-esophageal reflux disease without esophagitis; Z20.828 Contact with and (suspected) exposure to other viral communicable diseases; Y95 Nosocomial condition; I08.1 Rheumatic disorders of both mitral and tricuspid valves; Z68.39 Body mass index [BMI] 39.0-39.9, adult; Z79.01 Long term (current) use of anticoagulants; Z79.84 Long term (current) use of oral hypoglycemic drugs; Z79.890 Hormone replacement therapy; Z79.899 Other long term (current) drug therapy; Z82.49 Family history of ischemic heart disease and other diseases of the circulatory system; Z82.5 Family history of asthma and other chronic lower respiratory diseases; Z83.3 Family history of diabetes mellitus; Z86.73 Personal history of transient ischemic attack (TIA), and cerebral infarction without residual deficits; Z87.891 Personal history of nicotine dependence; Z90.710 Acquired absence of both cervix and uterus; Z98.42 Cataract extraction status, left eye; Z98.41 Cataract extraction status, right eye; Z90.49 Acquired absence of other specified parts of digestive tract; Z96.659 Presence of unspecified artificial knee joint; Z99.81 Dependence on supplemental oxygen; M54.9 Dorsalgia, unspecified; M19.90 Unspecified osteoarthritis, unspecified site; Z80.9 Family history of malignant neoplasm, unspecified; Z79.82 Long term (current) use of aspirin
CPT/HCPCS: 36415; 36600; 71045; 80048; 80053; 82805; 83036; 83605; 83880; 84443; 84484; 85025; 85610; 85730; 87040; 93005; 94640; 94760; 96365; 96367; 96375; 99291

== ENCOUNTER → 2020-07-11 | Outpatient (CLI) | payer MEDICARE, OTHER ==
--- NOTE | 2020-07-11 15:19 | CT ---
EXAMINATION TYPE: CT brain wo/w con DATE OF EXAM: 07/11/2020 COMPARISON: CT brain February 16, 2016 HISTORY: headaches CT DLP: 2108.4 mGycm Automated exposure control for dose reduction was used. CONTRAST: CT scan of the head is performed without and with IV Contrast, patient injected with 100 mL of Isovue 300. FINDINGS: Noncontrast images show no acute intracranial hemorrhage or midline shift. Mild to moderate ventricu lar sulcal prominence. Mild to moderate low-attenuation in the periventricular white matter. No suspi cious enhancing masses. The globes are intact and the visualized sinuses are clear. IMPRESSION: Mild to moderate diffuse cerebral atrophy and chronic small vessel ischemic change redemo nstrated. No significant change from prior. No abnormal enhancement noted.
== END | disposition home or self-care (01) ==
LOC: RADCTMAIN 14:00
PROVIDERS: ATTEND Family Medicine
DX: G31.9 Degenerative disease of nervous system, unspecified (principal); I67.82 Cerebral ischemia
CPT/HCPCS: 82565; 84520; 70470; 36415; Q9967

== ENCOUNTER 2020-08-04 13:22 | Observation (INO) | payer MEDICARE, OTHER ==
[2020-08-04] MEDS ORDERED: SODIUM CHLORIDE 0.9% 1,000 ML IV STA (13:41)
[2020-08-04] MEDS ORDERED: IPRATROPIUM-ALBUTEROL 3 ML NEB INHALATION STA (13:41)
--- NOTE | 2020-08-04 13:45 | ED ---
SOB HPI - General Chief Complaint: Shortness of Breath Stated Complaint: Weakness Time Seen by Provider: 08/04/20 13:24 Source: patient, EMS, RN notes reviewed, old records reviewed Mode of arrival: EMS Limitations: language barrier - History of Present Illness Initial Comments: This is a 89-year-old female history of COPD A. fib CHF presents by EMS with complaints of difficulty breathing last night or so. She states she's not getting any relief from her home updrafts her inhalers. She states she is coughing clear with greenish colored phlegm no overt chest pain which she's had chronic midepigastric pain for a long time. She also feels dizzy weak. Also some male is. No other complaints at this time no recent change in her medication. She denies any earaches sore throat she does have some sinus congestion when she coughs she states it feels like it stuck in her throat. MD Complaint: shortness of breath, cough - Related Data Home Medications Medication Instructions Recorded Confirmed Apixaban [Eliquis] 2.5 mg PO BID 02/14/16 08/04/20 Pantoprazole Sodium [Protonix] 40 mg PO AC-BID 09/14/18 08/04/20 Cholecalciferol [Vitamin D3 (25 1,000 unit PO DAILY 02/18/20 08/04/20 Mcg = 1000 Iu)] HYDROcodone/APAP 7.5-325MG [[place] 1 tab PO DAILY PRN 02/18/20 08/04/20 7.5-325] Levothyroxine Sodium [Synthroid] 50 mcg PO DAILY 02/18/20 08/04/20 Multivit-Min/FA/Lycopen/Lutein 1 tab PO DAILY 03/08/20 08/04/20 [Centrum Silver Tablet] Albuterol Sulfate [Ventolin HFA] 1 - 2 puff INHALATION RT-Q6H PRN 08/04/20 08/04/20 Dicyclomine [Bentyl] 10 mg PO DAILY 08/04/20 08/04/20 Diltiazem HCl [Cardizem CD] 240 mg PO DAILY 08/04/20 08/04/20 Furosemide [Lasix] 20 mg PO DAILY 08/04/20 08/04/20 Magnesium Gluconate [Magonate] 500 mg PO DAILY 08/04/20 08/04/20 Meclizine [Antivert] 25 mg PO Q6H PRN 08/04/20 08/04/20 Previous Rx's Medication Instructions Recorded Ipratropium-Albuterol Nebulize 3 ml INHALATION RT-QID ml 02/21/20 [Duoneb 0.5 mg-3 mg/3 ml Soln] Allergies Allergy/AdvReac Type Severity Reaction Status Date / Time aspirin AdvReac Dyspnea,Nausea/Vomiting,Dizzy,Tingling,Warm Verified 08/04/20 14:21 sensation Review of Systems ROS Statement: Those systems with pertinent positive or pertinent negative responses have been documented in the HPI. ROS Other: All systems not noted in ROS Statement are negative. Past Medical History Past Medical History: Atrial Fibrillation, Chest Pain / Angina, Heart Failure, Diabetes Mellitus, GERD/Reflux, Hyperlipidemia, Hypertension, Osteoarthritis (OA), Respiratory Disorder, Sleep Apnea/CPAP/BIPAP, Thyroid Disorder Additional Past Medical History / Comment(s): DDD WITH BACK PAIN, OCCASIONAL SW ELLING IN FEET, USES C-PAP MACHINE. History of Any Multi-Drug Resistant Organisms: None Reported Past Surgical History: Cholecystectomy, Hysterectomy, Joint Replacement Additional Past Surgical History / Comment(s): EGD for gastric reflux. Excision of lipomas. bilateral cataracts, total knee., Pain clinic procedures. Past Anesthesia/Blood Transfusion Reactions: No Reported Reaction Past Psychological History: Anxiety, Depression Smoking Status: Former smoker Past Alcohol Use History: None Reported Additional Past Alcohol Use History / Comment(s): SMOKED 3 PPD. STARTED SMOKING AGE 15, QUIT 35 YEARS AGO Past Drug Use History: None Reported Additional Drug Use History / Comment(s): . - Past Family History Brother(s) Family Medical History: Congestive Heart Failure (CHF), COPD, Coronary Artery Disease (CAD), Diabetes Mellitus Daughter(s) Additional Family Medical History / Comment(s): One from MVA Son(s) Family Medical History: Diabetes Mellitus, Hyperlipidemia, Hypertension Sister(s) Family Medical History: Cancer Mother Family Medical History: Dementia Father Family Medical History: COPD Additional Family Medical History / Comment(s): EMPHYSEMA. General Exam - General Exam Comments Initial Comments: This is a well-developed well-nourished awake alert oriented 3 female Limitations: language barrier General appearance: alert, anxious Head exam: Present: atraumatic, normocephalic, normal inspection Eye exam: Present: normal appearance, PERRL, EOMI. Absent: scleral icterus, conjunctival injection, periorbital swelling ENT exam: Present: mucous membranes dry Neck exam: Present: normal inspection. Absent: tenderness, meningismus, lymphadenopathy Respiratory exam: Present: decreased breath sounds, other (Markedly diminished breath sounds). Absent: respiratory distress, wheezes, rales, rhonchi, stridor Cardiovascular Exam: Present: regular rate, normal rhythm, normal heart sounds. Absent: systolic murmur, diastolic murmur, rubs, gallop, clicks GI/Abdominal exam: Present: soft, normal bowel sounds. Absent: distended, tenderness, guarding, rebound, rigid Extremities exam: Present: normal inspection, full ROM, normal capillary refill. Absent: tenderness, pedal edema, joint swelling, calf tenderness Back exam: Present: normal inspection Neurological exam: Present: alert, oriented X3, CN II-XII intact Psychiatric exam: Present: normal affect, normal mood Skin exam: Present: warm, dry, intact, normal color. Absent: rash Course Vital Signs 08/04/20 08/04/20 08/04/20 13:30 14:17 14:28 Temperature 98.4 F Pulse Rate 96 76 78 Respiratory 18 Rate Blood Pressure 149/115 O2 Sat by Pulse 98 Oximetry 08/04/20 15:37 Temperature Pulse Rate 88 Respiratory 18 Rate Blood Pressure 138/53 O2 Sat by Pulse 98 Oximetry - Reevaluation(s) Reevaluation #1: 08/04/20 16:45 Reevaluation patient reveals that she still feels short of breath no chest pain no other symptoms. Medical Decision Making - Medical Decision Making I did discuss Pf[employer] the patient family members as well as Dr. Issa. Patient be admitted with consultation to pulmonary medicine. - Lab Data Result diagrams: 08/04/20 14:06 08/04/20 14:06 Lab Results 08/04/20 08/04/20 08/04/20 Range/Units 14:06 14:06 14:06 WBC 8.3 (3.8-10.6) k/uL RBC 4.71 (3.80-5.40) m/uL Hgb 13.3 (11.4-16.0) gm/dL Hct 41.0 (34.0-46.0) % MCV 86.9 (80.0-100.0) fL MCH 28.3 (25.0-35.0) pg MCHC 32.6 (31.0-37.0) g/dL RDW 14.9 (11.5-15.5) % Plt Count 218 (150-450) k/uL MPV 7.5 Neutrophils % 67 % Lymphocytes % 26 % Monocytes % 5 % Eosinophils % 1 % Basophils % 0 % Neutrophils # 5.5 (1.3-7.7) k/uL Lymphocytes # 2.1 (1.0-4.8) k/uL Monocytes # 0.4 (0-1.0) k/uL Eosinophils # 0.1 (0-0.7) k/uL Basophils # 0.0 (0-0.2) k/uL PT 11.0 (9.0-12.0) sec INR 1.0 (<1.2) APTT 23.6 (22.0-30.0) sec D-Dimer 0.45 (<0.60) mg/L FEU Sodium 141 (137-145) mmol/L Potassium 4.2 (3.5-5.1) mmol/L Chloride 98 (98-107) mmol/L Carbon Dioxide 36 H (22-30) mmol/L Anion Gap 7 mmol/L BUN 14 (7-17) mg/dL Creatinine 0.59 (0.52-1.04) mg/dL Est GFR (CKD-EPI)AfAm >90 (>60 ml/min/1.73 sqM) Est GFR (CKD-EPI)NonAf 83 (>60 ml/min/1.73 sqM) Glucose 139 H (74-99) mg/dL Plasma Lactic Acid Osorio (0.7-2.0) mmol/L Calcium 9.6 (8.4-10.2) mg/dL Magnesium 1.8 (1.6-2.3) mg/dL Total Bilirubin 1.4 H (0.2-1.3) mg/dL AST 25 (14-36) U/L ALT 15 (4-34) U/L Alkaline Phosphatase 86 (38-126) U/L Creatine Kinase 57 (30-135) U/L Troponin I (0.000-0.034) ng/mL NT-Pro-B Natriuret Pep pg/mL Total Protein 7.7 (6.3-8.2) g/dL Albumin 4.4 (3.5-5.0) g/dL Influenza Type A (PCR) (Not Detectd) Influenza Type B (PCR) (Not Detectd) RSV (PCR) (Not Detectd) SARS-CoV-2 (PCR) (Not Detectd) 08/04/20 08/04/20 08/04/20 Range/Units 14:06 14:06 14:06 WBC (3.8-10.6) k/uL RBC (3.80-5.40) m/uL Hgb (11.4-16.0) gm/dL Hct (34.0-46.0) % MCV (80.0-100.0) fL MCH (25.0-35.0) pg MCHC (31.0-37.0) g/dL RDW (11.5-15.5) % Plt Count (150-450) k/uL MPV Neutrophils % % Lymphocytes % % Monocytes % % Eosinophils % % Basophils % % Neutrophils # (1.3-7.7) k/uL Lymphocytes # (1.0-4.8) k/uL Monocytes # (0-1.0) k/uL Eosinophils # (0-0.7) k/uL Basophils # (0-0.2) k/uL PT (9.0-12.0) sec INR (<1.2) APTT (22.0-30.0) sec D-Dimer (<0.60) mg/L FEU Sodium (137-145) mmol/L Potassium (3.5-5.1) mmol/L Chloride (98-107) mmol/L Carbon Dioxide (22-30) mmol/L Anion Gap mmol/L BUN (7-17) mg/dL Creatinine (0.52-1.04) mg/dL Est GFR (CKD-EPI)AfAm (>60 ml/min/1.73 sqM) Est GFR (CKD-EPI)NonAf (>60 ml/min/1.73 sqM) Glucose (74-99) mg/dL Plasma Lactic Acid Osorio 1.3 (0.7-2.0) mmol/L Calcium (8.4-10.2) mg/dL Magnesium (1.6-2.3) mg/dL Total Bilirubin (0.2-1.3) mg/dL AST (14-36) U/L ALT (4-34) U/L Alkaline Phosphatase (38-126) U/L Creatine Kinase (30-135) U/L Troponin I <0.012 (0.000-0.034) ng/mL NT-Pro-B Natriuret Pep 886 pg/mL Total Protein (6.3-8.2) g/dL Albumin (3.5-5.0) g/dL Influenza Type A (PCR) (Not Detectd) Influenza Type B (PCR) (Not Detectd) RSV (PCR) (Not Detectd) SARS-CoV-2 (PCR) (Not Detectd) 08/04/20 Range/Units 15:04 WBC (3.8-10.6) k/uL RBC (3.80-5.40) m/uL Hgb (11.4-16.0) gm/dL Hct (34.0-46.0) % MCV (80.0-100.0) fL MCH (25.0-35.0) pg MCHC (31.0-37.0) g/dL RDW (11.5-15.5) % Plt Count (150-450) k/uL MPV Neutrophils % % Lymphocytes % % Monocytes % % Eosinophils % % Basophils % % Neutrophils # (1.3-7.7) k/uL Lymphocytes # (1.0-4.8) k/uL Monocytes # (0-1.0) k/uL Eosinophils # (0-0.7) k/uL Basophils # (0-0.2) k/uL PT (9.0-12.0) sec INR (<1.2) APTT (22.0-30.0) sec D-Dimer (<0.60) mg/L FEU Sodium (137-145) mmol/L Potassium (3.5-5.1) mmol/L Chloride (98-107) mmol/L Carbon Dioxide (22-30) mmol/L Anion Gap mmol/L BUN (7-17) mg/dL Creatinine (0.52-1.04) mg/dL Est GFR (CKD-EPI)AfAm (>60 ml/min/1.73 sqM) Est GFR (CKD-EPI)NonAf (>60 ml/min/1.73 sqM) Glucose (74-99) mg/dL Plasma Lactic Acid Osorio (0.7-2.0) mmol/L Calcium (8.4-10.2) mg/dL Magnesium (1.6-2.3) mg/dL Total Bilirubin (0.2-1.3) mg/dL AST (14-36) U/L ALT (4-34) U/L Alkaline Phosphatase (38-126) U/L Creatine Kinase (30-135) U/L Troponin I (0.000-0.034) ng/mL NT-Pro-B Natriuret Pep pg/mL Total Protein (6.3-8.2) g/dL Albumin (3.5-5.0) g/dL Influenza Type A (PCR) Not Detected (Not Detectd) Influenza Type B (PCR) Not Detected (Not Detectd) RSV (PCR) Not Detected (Not Detectd) SARS-CoV-2 (PCR) Not Detected (Not Detectd) - EKG Data -: EKG Interpreted by Mi EKG Comments: Atrial fibrillation rate 82 QRS 72 QT since QTC 404/472 no acute changes seen - Radiology Data Radiology results: report reviewed (Image reviewed bilateral pleural effusions no focal infiltrates however.), image reviewed Disposition Clinical Impression: Acute exacerbation of chronic obstructive pulmonary disease, Congestive heart failure, Atrial fibrillation, Pleural effusion Disposition: ADMITTED IP TO THIS HOSP Condition: Fair Referrals: Martha Ferreira MD [Primary Care Provider] - 1-2 days
[2020-08-04 14:18] LABS: Basophils % (A) 0 %; Eosinophils # (A) 0.1 k/uL (0-0.7); Eosinophils % (A) 1 %; HGB 13.3 gm/dL (11.4-16.0); Lymphocytes # (A) 2.1 k/uL (1.0-4.8); Lymphocytes % (A) 26 %; MCH 28.3 pg (25.0-35.0); MCHC 32.6 g/dL (31.0-37.0); MCV 86.9 fL (80.0-100.0); Mean Platelet Volume 7.5; Monocytes # (A) 0.4 k/uL (0-1.0); Monocytes % (A) 5 %; Neutrophils # (A) 5.5 k/uL (1.3-7.7); Neutrophils % (A) 67 %; Platelet Count 218 k/uL (150-450); RBC 4.71 m/uL (3.80-5.40); RDW 14.9 % (11.5-15.5); WBC 8.3 k/uL (3.8-10.6)
[2020-08-04 14:29] LABS: ALT 15 U/L (4-34); AST 25 U/L (14-36); African American GFR (CKD) >90 (>60 ml/min/1.73 sqM); Albumin 4.4 g/dL (3.5-5.0); Alkaline Phosphatase 86 U/L (38-126); Anion Gap 7 mmol/L; Blood Urea Nitrogen 14 mg/dL (7-17); Calcium 9.6 mg/dL (8.4-10.2); Carbon Dioxide 36 mmol/L (22-30); Chloride 98 mmol/L (98-107); Creatine Kinase 57 U/L (30-135); Glucose 139 mg/dL (74-99); Magnesium 1.8 mg/dL (1.6-2.3); Non-African American GFR(CKD) 83 (>60 ml/min/1.73 sqM); Potassium 4.2 mmol/L (3.5-5.1); Sodium 141 mmol/L (137-145); Total Bilirubin 1.4 mg/dL (0.2-1.3); Total Protein 7.7 g/dL (6.3-8.2)
[2020-08-04 14:34] LABS: D-Dimer 0.45 mg/L FEU (<0.60); Partial Thromboplastin Time 23.6 sec (22.0-30.0)
--- NOTE | 2020-08-04 14:43 | XR ---
EXAMINATION TYPE: XR chest 2V DATE OF EXAM: 08/04/2020 COMPARISON: 03/11/2020 HISTORY: 89 year-old female shortness of breath, difficulty breathing TECHNIQUE: Frontal and lateral views FINDINGS: Heart is enlarged. Bilateral vascular prominence. Trace to small pleural effusions. There is bulky an terior endplate spondylosis mid thoracic spine and thoracolumbar junction. IMPRESSION: Cardiomegaly with vascular prominence and small effusions. Correlate for mild CHF. No víctor pulmonary edema.
[2020-08-04] MEDS ORDERED: HYDROcodone/APAP 7.5-325MG 1 EACH TAB PO PRN (16:55)
[2020-08-04] MEDS ORDERED: MECLIZINE 25 MG TAB PO PRN (16:55)
[2020-08-04] MEDS ORDERED: FUROSEMIDE 10 MG/ML 4 ML VIAL IV STA (16:59)
[2020-08-04] MEDS: PANTOPRAZOLE 40 MG TABLET PO SCH (19:42)
[2020-08-04] MEDS: methylPREDNISolone SOD SUCCI 125 MG/2 ML VIAL IV SCH (19:42)
[2020-08-04] MEDS: APIXABAN 2.5 MG TABLET PO SCH (19:51)
[2020-08-04] MEDS ORDERED: IPRATROPIUM-ALBUTEROL 3 ML NEB INHALATION SCH (20:00)
[2020-08-04] MEDS ORDERED: IPRATROPIUM-ALBUTEROL 3 ML NEB INHALATION PRN (21:59)
[2020-08-05] MEDS: methylPREDNISolone SOD SUCCI 125 MG/2 ML VIAL IV SCH ×4 (01:44→18:25)
[2020-08-05] MEDS: LEVOTHYROXINE 50 MCG TAB PO SCH (05:53)
[2020-08-05 07:09] LABS: Glucose,Whole Blood 214 mg/dL (75-99)
[2020-08-05] MEDS: IPRATROPIUM-ALBUTEROL 3 ML NEB INHALATION SCH ×5 (07:45→20:57)
[2020-08-05] MEDS: DICYCLOMINE 10 MG CAP PO SCH (08:44)
[2020-08-05] MEDS: APIXABAN 2.5 MG TABLET PO SCH ×2 (08:44→20:19)
[2020-08-05] MEDS: MAGNESIUM OXIDE 400 MG TAB PO SCH (08:44)
[2020-08-05] MEDS: PANTOPRAZOLE 40 MG TABLET PO SCH ×2 (08:44→18:21)
[2020-08-05] MEDS ORDERED: FUROSEMIDE 20 MG TAB PO SCH (09:00)
[2020-08-05] MEDS ORDERED: ALBUTEROL HFA INHALER INHALATION PRN (09:17)
[2020-08-05] MEDS: DILTIAZEM CD 240 MG CAP.ER.24H PO SCH (09:46)
[2020-08-05 11:49] LABS: Glucose,Whole Blood 236 mg/dL (75-99)
[2020-08-05] MEDS: INSULIN ASPART (NovoLOG) 100 UNIT/ML VIAL SQ SCH ×3 (12:39→20:18)
--- NOTE | 2020-08-05 12:39 | P.CNPUL ---
History of Present Illness Consult date: 08/05/20 Reason for consult: dyspnea History of present illness: -year-old. Patient came into the emergency department yesterday because of worsening shortness of breath. She is well-known to us from previous hospitalizations and office visits. The patient is known to have COPD, chronic atrial fibrillation, CHF and chronic lower extremity edema. Her last echocardiogram that was done on 02/19/2020 showed a left ventricular ejection fraction of 55-60% and the patient had a preserved LV function with moderate concentric LVH, normal valvular functions, [id number] pulmonary hypertension and the IVC was not well visualized. The patient has other comorbidities include chronic atrial fibrillation, hypothyroidism, diabetes mellitus, obstructive sleep apnea, hypertension, hyperlipidemia and osteoarthritis. The patient also has chronic anxiety and chronic depression. The patient came in yesterday to the emergency with worsening shortness of breath. Her coagulation profile was within normal limits. Her code 19 testing came back negative. ProBNP level was 886, troponin was less than 0.01, LFTs are within normal limits with mild elevation of the bilirubin of 1.4, normal renal function with a creatinine of 0.59 and electrolytes were within normal limits, white cell count was at 8.3 with a hemoglobin of 15.3. The chest x-ray showed cardiomegaly, tortuous aorta, some small bilateral pleural effusions, some mild pulmonary vascular markings bilaterally without any other consolidation or airspace disease. She was given extra doses of IV Lasix in the emergency department and she was placed back on her regular Lasix doses. She was also placed on DuoNeb nebulized treatments around the clock, and she was started on IV Solu Medrol 60 mg every 6 hours. Is on long-term anticoagulation with Eliquis. The cardiac rhythm is atrial fibrillation, Review of Systems CONSTITUTIONAL: Positive for increased lower extremity edema and increased weight gain. EYES: Denies change in vision. EARS, NOSE, MOUTH, THROAT: Denies headaches, denies sore throat. CARDIOVASCULAR: Denies chest pain, palpitations or syncopal episodes. RESPIRATORY: Positive for shortness of breath, cough, congestion no hemoptysis. GASTROINTESTINAL: Denies change in appetite, denies abdominal pain GENITOURINARY: Denies hematuria, denies infections. MUSKULOSKELETAL: Denies pain, positive for swelling. INTEGUMENTARY: Denies rash, denies eczema. NEUROLOGICAL: Denies recent memory loss, no recent seizure activity. PSYCHIATRIC: Denies anxiety, denies depression. HEMATOLOGIC/LYMPHATIC: Denies anemia, denies enlarged lymph nodes. Past Medical History Past Medical History: Atrial Fibrillation, Chest Pain / Angina, Heart Failure, Diabetes Mellitus, GERD/Reflux, Hyperlipidemia, Hypertension, Osteoarthritis (OA), Respiratory Disorder, Sleep Apnea/CPAP/BIPAP, Thyroid Disorder Additional Past Medical History / Comment(s): DDD WITH BACK PAIN, OCCASIONAL SWELLING IN FEET, USES C-PAP MACHINE. History of Any Multi-Drug Resistant Organisms: None Reported Past Surgical History: Cholecystectomy, Hysterectomy, Joint Replacement Additional Past Surgical History / Comment(s): EGD for gastric reflux. Excision of lipomas. bilateral cataracts, left total knee., Pain clinic procedures. Past Anesthesia/Blood Transfusion Reactions: No Reported Reaction Past Psychological History: Anxiety, Depression Smoking Status: Former smoker Past Alcohol Use History: None Reported Additional Past Alcohol Use History / Comment(s): SMOKED 3 PPD. STARTED SMOKING AGE 15, QUIT 35 YEARS AGO Past Drug Use History: None Reported Additional Drug Use History / Comment(s): . - Past Family History Brother(s) Family Medical History: Congestive Heart Failure (CHF), COPD, Coronary Artery D isease (CAD), Diabetes Mellitus Daughter(s) Additional Family Medical History / Comment(s): One from MVA Son(s) Family Medical History: Diabetes Mellitus, Hyperlipidemia, Hypertension Sister(s) Family Medical History: Cancer Mother Family Medical History: Dementia Father Family Medical History: COPD Additional Family Medical History / Comment(s): EMPHYSEMA. Medications and Allergies Home Medications Medication Instructions Recorded Confirmed Type Apixaban [Eliquis] 2.5 mg PO BID 02/14/16 08/04/20 History Pantoprazole Sodium [Protonix] 40 mg PO AC-BID 09/14/18 08/04/20 History Cholecalciferol [Vitamin D3 (25 1,000 unit PO DAILY 02/18/20 08/04/20 History Mcg = 1000 Iu)] HYDROcodone/APAP 7.5-325MG [[place] 1 tab PO DAILY PRN 02/18/20 08/04/20 History 7.5-325] Levothyroxine Sodium [Synthroid] 50 mcg PO DAILY 02/18/20 08/04/20 History Ipratropium-Albuterol Nebulize 3 ml INHALATION RT-QID ml 02/21/20 08/04/20 Rx [Duoneb 0.5 mg-3 mg/3 ml Soln] Multivit-Min/FA/Lycopen/Lutein 1 tab PO DAILY 03/08/20 08/04/20 History [Centrum Silver Tablet] Albuterol Sulfate [Ventolin HFA] 1 - 2 puff INHALATION RT-Q6H PRN 08/04/20 08/04/20 History Dicyclomine [Bentyl] 10 mg PO DAILY 08/04/20 08/04/20 History Diltiazem HCl [Cardizem CD] 240 mg PO DAILY 08/04/20 08/04/20 History Furosemide [Lasix] 20 mg PO DAILY 08/04/20 08/04/20 History Magnesium Gluconate [Magonate] 500 mg PO DAILY 08/04/20 08/04/20 History Meclizine [Antivert] 25 mg PO Q6H PRN 08/04/20 08/04/20 History Allergies Allergy/AdvReac Type Severity Reaction Status Date / Time aspirin AdvReac Dyspnea,Nausea/Vomiting,Dizzy,Tingling,Warm Verified 08/04/20 14:21 sensation Physical Exam Vitals: Vital Signs Temp Pulse Pulse Resp BP BP Pulse Ox 08/05/20 11:26 76 08/05/20 11:14 75 08/05/20 08:00 20 08/05/20 07:54 75 08/05/20 07:45 74 98 08/05/20 07:00 97.7 F 88 20 176/94 97 08/05/20 01:47 97.8 F 86 20 147/80 97 08/04/20 19:40 97.5 F L 79 20 153/80 91 L 08/04/20 19:28 80 08/04/20 19:16 80 08/04/20 15:37 88 18 138/53 98 08/04/20 14:28 78 08/04/20 14:17 76 08/04/20 13:30 98.4 F 96 18 149/115 98 Intake and Output 08/04/20 08/05/20 08/05/20 22:59 06:59 14:59 Intake Total 100 Output Total 300 Balance -200 Intake: Oral 100 Output: Urine 300 Other: Voiding Method Bedside Commode Bedside Commode Diaper Diaper Incontinent Incontinent # Voids 2 3 # Bowel Movements 1 Weight 87.09 kg 86 kg Elderly obese 89-year-old female patient,no acute distress. On 2 L nasal cannula. Short neck and she has significant crowding of the posterior oropharynx.Neck was supple and without jugular venous distension, thyromegaly, or carotid bruits. Carotids were easily palpable bilaterally. There was no adenopathy.Cardiac exam revealed the PMI to be normally situated and sized. The rhythm was irregular and no extrasystoles were noted during several minutes of auscultation. The first and second heart sounds were normal and physiologic splitting of the second heart sound was noted. There were no murmurs, rubs, clicks, or gallops. Lungs sounds are diminished bilaterally there is some few crackles at lung bases. Heart sounds are irregular, distant, positive S1-S2, no cervical murmurs appreciated. Abdomen is obese soft nontender. There is no direct tenderness. No rebound tenderness or guarding. Extremities show no edema there is no cyanosis or clubbing of this point.Neurologically, the patient is awake and alert and the patient does not have any focal neurological deficit. Cranial nerves are essentially intact. Results - Laboratory Findings CBC and BMP: 08/04/20 14:06 08/04/20 14:06 PT/INR, D-dimer PT 11.0 sec (9.0-12.0) 08/04/20 14:06 INR 1.0 (<1.2) 08/04/20 14:06 D-Dimer 0.45 mg/L FEU (<0.60) 08/04/20 14:06 Abnormal lab findings: Abnormal Labs 08/04/20 08/05/20 08/05/20 14:06 07:07 11:43 Carbon Dioxide 36 H Glucose 139 H POC Glucose (mg/dL) 214 H 236 H Total Bilirubin 1.4 H - Diagnostic Findings Chest x-ray: image reviewed Assessment and Plan Plan: 1 acute exacerbation of diastolic congestive heart failure with lower extremity edema 2 acute COPD exacerbation with secondary shortness of breath 3 chronic atrial fibrillation, anticoagulated with Eliquis 4 hypertension, currently under better control 5 obstructive sleep apnea maintained on CPAP therapy 6 morbid obesity 7 recent history of CVA/TIA 8 hyperlipidemia 9 hypertension 10 chronic pain. Maintained on Ultram 11 GE reflux, history of Plan Chest x-ray and labs reviewed Add Lasix 40 mg IV every 24 hours Continue insulin Medrol for another 24 hours and put the patient prednisone burst taper as of tomorrow Resume home medication We will continue to follow make further recommendations based on her clinical status, overall condition is stable and possible discharge home tomorrow.
--- NOTE | 2020-08-05 13:03 | P.CRDCN ---
History of Present Illness History of present illness: HISTORY OF PRESENTING ILLNESS This is a pleasant 89-year-old male past medical history significant for on a persistent atrial fibrillation and Eliquis, hypertension, obstructive sleep apnea, COPD and former nicotine dependence. She follows in the office with Dr. Patterson. We have been asked to see in consultation for heart failure. She presented to the hospital yesterday with symptoms of shortness of breath that had been getting progressively worse for the past 2 days. She also had a pro ductive cough, sinus congestion and generalized weakness. She was using her inhalers with no relief. She has been seen by pulmonary care team and they have added up drafts along with IV steroids. She was also given one dose of IV lasix on admission. She is seen and examined resting comfortably laying flat in bed in no acute distress. She states her breathing has improved since admission. She denies worsening cough as well. She denies chest pain, dizziness or palpitations. She is also concerned about left lower leg pain since suffering a fall 1-year ago. DIAGNOSTICS EKG reveals atrial fibrillation with heart rate 82. Chest xray vascular prominence and small effusions with no víctor pulmonary edema. Laboratory reviewed, CBC unremarkable, d-dimer 0.45, sodium 141, potassium 4.2, creatinine 0.59, magnesium 1.8, troponin negative x1 and NTproBNP 886. Current cardiac medications include eliquis 2.5, diltiazem 240 mg daily and lasix 20 mg daily. Most recent echocardiogram obtained 01/2020 revealed preserved LV systolic function with EF 55-60%, dilated LA, mild-moderate TR and moderate pulmonary hypertension. REVIEW OF SYSTEMS At the time of my exam: CONSTITUTIONAL: Denies fever or chills. CARDIOVASCULAR: Denies chest pain, shortness of breath, orthopnea, PND or palpitations. RESPIRATORY: Denies cough. GASTROINTESTINAL: Denies abdominal pain, diarrhea, constipation, nausea or vomit ing. MUSCULOSKELETAL: Denies myalgias. NEUROLOGIC: Denies numbness, tingling, headacbe or weakness. ENDOCRINE: Denies fatigue, weight change, polydipsia or polyurina. GENITOURINARY: Denies burning, hematuria or urgency with micturation. HEMATOLOGIC: Denies history of anemia or bleeding. PHYSICAL EXAMINATION Blood pressure 176/94 heart rate 75 afebrile and maintaining oxygen saturation on nasal cannula. CONSTITUTIONAL: No apparent distress. Obese. HEENT: Head is normocephalic. Pupils are equal, round. Sclerae anicteric. Mucous membranes of the mouth are moist. No JVD. No carotid bruit. CHEST EXAMINATION: Lungs are clear to auscultation. No chest wall tenderness is noted on palpation or with deep breathing. HEART EXAMINATION: Irregular rate and rhythm. S1, S2 heard. No murmurs, gallops or rub. ABDOMEN: Soft, nontender. Positive bowel sounds. EXTREMITIES: 2+ peripheral pulses, no lower extremity edema and no calf tenderness. NEUROLOGIC EXAMINATION: Patient is awake, alert and oriented x3. ASSESSMENT Acute exacerbation of COPD Chronic persistent atrial fibrillation on eliquis Hypertension Obstructive sleep apnea Morbid obesity, BMI 41 PLAN Clinically the patient is euvolemic. It is difficult to say what is helping he since she is currently on updrafts, steroids and received one dose of IV lasix. However, her BNP was normal on admission suggesting no evidence of heart failu re. We will not repeat an echocardiogram on this admission as she just had one done in January. No further recommendations from a cardiac perspective. Follow up on discharge with Dr. Patterson. Thank you kindly for this consultation. Nurse Practitioner note has been reviewed, I agree with a documented findings and plan of care. Patient was seen and examined. Past Medical History Past Medical History: Atrial Fibrillation, Chest Pain / Angina, Heart Failure, Diabetes Mellitus, GERD/Reflux, Hyperlipidemia, Hypertension, Osteoarthritis (OA), Respiratory Disorder, Sleep Apnea/CPAP/BIPAP, Thyroid Disorder Additional Past Medical History / Comment(s): DDD WITH BACK PAIN, OCCASIONAL SWELLING IN FEET, USES C-PAP MACHINE. History of Any Multi-Drug Resistant Organisms: None Reported Past Surgical History: Cholecystectomy, Hysterectomy, Joint Replacement Additional Past Surgical History / Comment(s): EGD for gastric reflux. Excision of lipomas. bilateral cataracts, left total knee., Pain clinic procedures. Past Anesthesia/Blood Transfusion Reactions: No Reported Reaction Past Psychological History: Anxiety, Depression Smoking Status: Former smoker Past Alcohol Use History: None Reported Additional Past Alcohol Use History / Comment(s): SMOKED 3 PPD. STARTED SMOKING AGE 15, QUIT 35 YEARS AGO Past Drug Use History: None Reported Additional Drug Use History / Comment(s): . - Past Family History Brother(s) Family Medical History: Congestive Heart Failure (CHF), COPD, Coronary Artery Disease (CAD), Diabetes Mellitus Daughter(s) Additional Family Medical History / Comment(s): One from MVA Son(s) Family Medical History: Diabetes Mellitus, Hyperlipidemia, Hypertension Sister(s) Family Medical History: Cancer Mother Family Medical History: Dementia Father Family Medical History: COPD Additional Family Medical History / Comment(s): EMPHYSEMA. Medications and Allergies Home Medications Medication Instructions Recorded Confirmed Type Apixaban [Eliquis] 2.5 mg PO BID 02/14/16 08/04/20 History Pantoprazole Sodium [Protonix] 40 mg PO AC-BID 09/14/18 08/04/20 History Cholecalciferol [Vitamin D3 (25 1,000 unit PO DAILY 02/18/20 08/04/20 History Mcg = 1000 Iu)] HYDROcodone/APAP 7.5-325MG [[place] 1 tab PO DAILY PRN 02/18/20 08/04/20 History 7.5-325] Levothyroxine Sodium [Synthroid] 50 mcg PO DAILY 02/18/20 08/04/20 History Ipratropium-Albuterol Nebulize 3 ml INHALATION RT-QID ml 02/21/20 08/04/20 Rx [Duoneb 0.5 mg-3 mg/3 ml Soln] Multivit-Min/FA/Lycopen/Lutein 1 tab PO DAILY 03/08/20 08/04/20 History [Centrum Silver Tablet] Albuterol Sulfate [Ventolin HFA] 1 - 2 puff INHALATION RT-Q6H PRN 08/04/20 08/04/20 History Dicyclomine [Bentyl] 10 mg PO DAILY 08/04/20 08/04/20 History Diltiazem HCl [Cardizem CD] 240 mg PO DAILY 08/04/20 08/04/20 History Furosemide [Lasix] 20 mg PO DAILY 08/04/20 08/04/20 History Magnesium Gluconate [Magonate] 500 mg PO DAILY 08/04/20 08/04/20 History Meclizine [Antivert] 25 mg PO Q6H PRN 08/04/20 08/04/20 History Allergies Allergy/AdvReac Type Severity Reaction Status Date / Time aspirin AdvReac Dyspnea,Nausea/Vomiting,Dizzy,Tingling,Warm Verified 08/04/20 14:21 sensation Physical Exam Vitals: Vital Signs Temp Pulse Pulse Resp BP BP Pulse Ox 08/05/20 07:54 75 08/05/20 07:45 74 98 08/05/20 07:00 97.7 F 88 20 176/94 97 08/05/20 01:47 97.8 F 86 20 147/80 97 08/04/20 19:40 97.5 F L 79 20 153/80 91 L 08/04/20 19:28 80 08/04/20 19:16 80 08/04/20 15:37 88 18 138/53 98 08/04/20 14:28 78 08/04/20 14:17 76 08/04/20 13:30 98.4 F 96 18 149/115 98 Intake and Output 08/04/20 08/05/20 08/05/20 22:59 06:59 14:59 Intake Total 100 Output Total 300 Balance -200 Intake: Oral 100 Output: Urine 300 Other: Voiding Method Bedside Commode Diaper Incontinent # Voids 2 3 Weight 87.09 kg 86 kg Results 08/04/20 14:06 08/04/20 14:06 Cardiac Enzymes 08/04/20 08/04/20 Range/Units 14:06 14:06 AST 25 (14-36) U/L Troponin I <0.012 (0.000-0.034) ng/mL Coagulation 08/04/20 Range/Units 14:06 PT 11.0 (9.0-12.0) sec APTT 23.6 (22.0-30.0) sec CBC 08/04/20 Range/Units 14:06 WBC 8.3 (3.8-10.6) k/uL RBC 4.71 (3.80-5.40) m/uL Hgb 13.3 (11.4-16.0) gm/dL Hct 41.0 (34.0-46.0) % Plt Count 218 (150-450) k/uL Comprehensive Metabolic Panel 08/04/20 Range/Units 14:06 Sodium 141 (137-145) mmol/L Potassium 4.2 (3.5-5.1) mmol/L Chloride 98 (98-107) mmol/L Carbon Dioxide 36 H (22-30) mmol/L BUN 14 (7-17) mg/dL Creatinine 0.59 (0.52-1.04) mg/dL Glucose 139 H (74-99) mg/dL Calcium 9.6 (8.4-10.2) mg/dL AST 25 (14-36) U/L ALT 15 (4-34) U/L Alkaline Phosphatase 86 (38-126) U/L Total Protein 7.7 (6.3-8.2) g/dL Albumin 4.4 (3.5-5.0) g/dL Current Medications Generic Name Dose Route Start Last Admin Trade Name Freq PRN Reason Stop Dose Admin Hydrocodone Bitart/Acetaminophen 1 each 08/04/20 16:55 Hydrocodone/Apap 7.5-325mg 1 Each Tab PO DAILY PRN Pain Albuterol Sulfate 2 puff 08/05/20 09:17 Albuterol Hfa Inhaler INHALATION RT-Q6H PRN Shortness Of Breath Albuterol/Ipratropium 3 ml 08/04/20 21:59 Ipratropium-Albuterol 3 Ml Neb INHALATION RT-QID PRN Shortness Of Breath Or Wheezing Albuterol/Ipratropium 3 ml 08/05/20 08:00 08/05/20 07:45 Ipratropium-Albuterol 3 Ml Neb INHALATION 3 ml RT-QID [facility] Administration Albuterol/Ipratropium 3 ml 08/05/20 12:00 Ipratropium-Albuterol 3 Ml Neb INHALATION RT-QID [facility] Apixaban 2.5 mg 08/04/20 21:00 08/05/20 08:44 Apixaban 2.5 Mg Tablet PO 2.5 mg BID [facility] Administration Cholecalciferol 25 mcg 08/06/20 09:00 Cholecalciferol 25 Mcg (1000 Iu) Tablet PO DAILY [facility] Dicyclomine HCl 10 mg 08/05/20 09:00 08/05/20 08:44 Dicyclomine 10 Mg Cap PO 10 mg DAILY [facility] Administration Diltiazem HCl 240 mg 08/05/20 09:00 08/05/20 09:46 Diltiazem Cd 240 Mg Cap.Er.24h PO 240 mg DAILY [facility] Administration Furosemide 20 mg 08/05/20 09:00 08/05/20 08:44 Furosemide 20 Mg Tab PO 20 mg DAILY [facility] Administration Insulin Aspart 0 unit 08/05/20 12:30 Insulin Aspart (Novolog) 100 Unit/Ml Vial SQ ACHS [facility] Protocol Levothyroxine Sodium 50 mcg 08/05/20 06:30 08/05/20 05:53 Levothyroxine 50 Mcg Tab PO 50 mcg DAILY@0630 [facility] Administration Magnesium Oxide 400 mg 08/05/20 09:00 08/05/20 08:44 Magnesium Oxide 400 Mg Tab PO 400 mg DAILY [facility] Administration Meclizine HCl 25 mg 08/04/20 16:55 Meclizine 25 Mg Tab PO Q6H PRN DIZZINESS Methylprednisolone Sodium Succinate 60 mg 08/04/20 18:00 08/05/20 05:53 Methylprednisolone Sod Succi 125 Mg/2 Ml Vial IV 60 mg Q6HR [facility] Administration Multivitamins 1 each 08/06/20 09:00 Multivitamins, Thera 1 Each Tab PO DAILY [facility] Pantoprazole Sodium 40 mg 08/04/20 17:30 08/05/20 08:44 Pantoprazole 40 Mg Tablet PO 40 mg AC-BID [facility] Administration Intake and Output 08/04/20 08/05/20 08/05/20 22:59 06:59 14:59 Intake Total 100 Output Total 300 Balance -200 Intake: Oral 100 Output: Urine 300 Other: Voiding Method Bedside Commode Diaper Incontinent # Voids 2 3 Weight 87.09 kg 86 kg 08/04/20 14:06 08/04/20 14:06
[2020-08-05] MEDS: FUROSEMIDE 10 MG/ML 4 ML VIAL IV SCH (13:53)
--- NOTE | 2020-08-05 15:34 | P.HPIM ---
History of Present Illness H&P Date: 08/05/20 Joyce Davis, is an 89-year-old female who presented to [facility] emergency room with a chief complaint of worsening shortness of breath, she was evaluated in emergency room her vital exam on presentation revealed a temperature of 98.4 pulse 96 respiration 18 blood pressure 149/115 pulse ox 98% on 2 L nasal cannula, her laboratory data revealed a white blood count of 8.3 hemoglobin 13.3 platelet count 218, BUN was 14 creatinine 0.59 CO2 36 influenza PCR and Covid 19 PCR were negative. BNP was 886 troponin level less than 0.012 . Chest x-ray in the emergency room revealed evidence of cardiomegaly with vascular prominence and small bilateral pleural effusions, EKG was done in the emergency room and revealed evidence of atrial fibrillation with a heart rate of 82. Patient was admitted to telemetry floor, she was started on IV Lasix, echocardiogram was requested , cardiology consultation and pulmonary consultation was requested. Her past medical history is significant for history of chronic persistent atrial fibrillation, history of diastolic congestive heart failure history of pulmonary hypertension, history of COPD, history of hypertension, history of obstructive sleep apnea, history of morbid obesity BMI is 41. On review of systems patient is alert and oriented times if he in no apparent distress she is complaining of shortness of breath and lower extremity edema otherwise she denies any complaints there is no fever or chills no headache or dizziness no chest pain no palpitation no cough no nausea or vomiting no abdominal pain no diarrhea no blood in the stools no burning with urination no frequency or urgency no hematuria Past Medical History Past Medical History: Atrial Fibrillation, Chest Pain / Angina, Heart Failure, Diabetes Mellitus, GERD/Reflux, Hyperlipidemia, Hypertension, Osteoarthritis (OA), Respiratory Disorder, Sleep Apnea/CPAP/BIPAP, Thyroid Disorder Additional Past Medical History / Comment(s): DDD WITH BACK PAIN, OCCASIONAL SWELLING IN FEET, USES C-PAP MACHINE. History of Any Multi-Drug Resistant Organisms: None Reported Past Surgical History: Cholecystectomy, Hysterectomy, Joint Replacement Additional Past Surgical History / Comment(s): EGD for gastric reflux. Excision of lipomas. bilateral cataracts, left total knee., Pain clinic procedures. Past Anesthesia/Blood Transfusion Reactions: No Reported Reaction Past Psychological History: Anxiety, Depression Smoking Status: Former smoker Past Alcohol Use History: None Reported Additional Past Alcohol Use History / Comment(s): SMOKED 3 PPD. STARTED SMOKING AGE 15, QUIT 35 YEARS AGO Past Drug Use History: None Reported Additional Drug Use History / Comment(s): . - Past Family History Brother(s) Family Medical History: Congestive Heart Failure (CHF), COPD, Coronary Artery Disease (CAD), Diabetes Mellitus Daughter(s) Additional Family Medical History / Comment(s): One from MVA Son(s) Family Medical History: Diabetes Mellitus, Hyperlipidemia, Hypertension Sister(s) Family Medical History: Cancer Mother Family Medical History: Dementia Father Family Medical History: COPD Additional Family Medical History / Comment(s): EMPHYSEMA. Medications and Allergies Home Medications Medication Instructions Recorded Confirmed Type Apixaban [Eliquis] 2.5 mg PO BID 02/14/16 08/04/20 History Pantoprazole Sodium [Protonix] 40 mg PO AC-BID 09/14/18 08/04/20 History Cholecalciferol [Vitamin D3 (25 1,000 unit PO DAILY 02/18/20 08/04/20 History Mcg = 1000 Iu)] HYDROcodone/APAP 7.5-325MG [[place] 1 tab PO DAILY PRN 02/18/20 08/04/20 History 7.5-325] Levothyroxine Sodium [Synthroid] 50 mcg PO DAILY 02/18/20 08/04/20 History Ipratropium-Albuterol Nebulize 3 ml INHALATION RT-QID ml 02/21/20 08/04/20 Rx [Duoneb 0.5 mg-3 mg/3 ml Soln] Multivit-Min/FA/Lycopen/Lutein 1 tab PO DAILY 03/08/20 08/04/20 History [Centrum Silver Tablet] Albuterol Sulfate [Ventolin HFA] 1 - 2 puff INHALATION RT-Q6H PRN 08/04/20 08/04/20 History Dicyclomine [Bentyl] 10 mg PO DAILY 08/04/20 08/04/20 History Diltiazem HCl [Cardizem CD] 240 mg PO DAILY 08/04/20 08/04/20 History Furosemide [Lasix] 20 mg PO DAILY 08/04/20 08/04/20 History Magnesium Gluconate [Magonate] 500 mg PO DAILY 08/04/20 08/04/20 History Meclizine [Antivert] 25 mg PO Q6H PRN 08/04/20 08/04/20 History Allergies Allergy/AdvReac Type Severity Reaction Status Date / Time aspirin AdvReac Dyspnea,Nausea/Vomiting,Dizzy,Tingling,Warm Verified 08/04/20 14:21 sensation Physical Exam Vitals: Vital Signs Temp Pulse Pulse Resp BP BP Pulse Ox 08/05/20 07:54 75 08/05/20 07:45 74 98 08/05/20 07:00 97.7 F 88 20 176/94 97 08/05/20 01:47 97.8 F 86 20 147/80 97 08/04/20 19:40 97.5 F L 79 20 153/80 91 L 08/04/20 19:28 80 08/04/20 19:16 80 08/04/20 15:37 88 18 138/53 98 08/04/20 14:28 78 08/04/20 14:17 76 08/04/20 13:30 98.4 F 96 18 149/115 98 Intake and Output 08/04/20 08/05/20 08/05/20 22:59 06:59 14:59 Intake Total 100 Output Total 300 Balance -200 Intake: Oral 100 Output: Urine 300 Other: Voiding Method Bedside Commode Diaper Incontinent # Voids 2 3 Weight 87.09 kg 86 kg In general patient is alert and oriented 3 in no apparent distress HEENT head normocephalic and atraumatic Neck is supple no JVD no goiter no lymphadenopathy Chest exam reveals a few scattered crackles no wheezing Cardiac exam reveals regular heart sounds S1 and S2 no gallops no murmurs Abdomen is soft nontender no organomegaly with normal bowel sounds Extremity exam reveals 2+ edema no cyanosis or clubbing Neurological examination reveals no gross focal deficit Results CBC & Chem 7: 08/04/20 14:06 08/04/20 14:06 Labs: Abnormal Lab Results - Last 24 Hours (Table) 08/04/20 08/05/20 Range/Units 14:06 07:07 Carbon Dioxide 36 H (22-30) mmol/L Glucose 139 H (74-99) mg/dL POC Glucose (mg/dL) 214 H (75-99) mg/dL Total Bilirubin 1.4 H (0.2-1.3) mg/dL Thrombosis Risk Factor Assmnt - Choose All That Apply Any of the Below Risk Factors Present?: Yes Each Factor Represents 1 point: Abnormal pulmonary function (COPD), Heart failure (<1month), Obesity (BMI >25) Other Risk Factors: Yes Each Risk Factor Represents 3 Points: Age 75 years or older Other congenital or acquired thrombophilia - If yes, enter type in comment: No Thrombosis Risk Factor Assessment Total Risk Factor Score: 6 Thrombosis Risk Factor Assessment Level: High Risk Assessment and Plan Plan: Acute diastolic congestive heart failure exacerbation Acute COPD exacerbation Underlying history of [id number] pulmonary hypertension Chronic persistent atrial fibrillation maintained on anticoagulation with heart rate is well-controlled Underlying history of hypertension Underlying history of obstructive sleep apnea maintained on CPAP Underlying history of morbid obesity Underlying history of degenerative disc disease with chronic back pain Underlying history of gastroesophageal reflux disease At this time patient is admitted to telemetry floor she was started on IV Lasix IV Solu-Medrol and inhaled bronchodilators Echocardiogram was ordered Pulmonary consultation and cardiology consultation were requested Home medications reviewed and reordered Will recheck labs in a.m.
[2020-08-05 18:06] LABS: Glucose,Whole Blood 296 mg/dL (75-99)
[2020-08-05] MEDS: guaiFENesin 600 MG TABLET.ER PO SCH (18:21)
[2020-08-05 19:54] LABS: Glucose,Whole Blood 301 mg/dL (75-99)
[2020-08-06] MEDS: methylPREDNISolone SOD SUCCI 125 MG/2 ML VIAL IV SCH ×3 (00:48→12:48)
[2020-08-06 02:16] VITALS: RESP 17
[2020-08-06] MEDS: LEVOTHYROXINE 50 MCG TAB PO SCH (05:29)
[2020-08-06 06:51] LABS: Glucose,Whole Blood 230 mg/dL (75-99)
[2020-08-06] MEDS: IPRATROPIUM-ALBUTEROL 3 ML NEB INHALATION SCH ×3 (07:19→15:19)
[2020-08-06 07:21] VITALS: BP 131/69; TEMP 98.1
[2020-08-06] MEDS: INSULIN ASPART (NovoLOG) 100 UNIT/ML VIAL SQ SCH ×2 (08:29→12:50)
[2020-08-06] MEDS: MAGNESIUM OXIDE 400 MG TAB PO SCH (08:30)
[2020-08-06] MEDS: FUROSEMIDE 10 MG/ML 4 ML VIAL IV SCH (08:30)
[2020-08-06] MEDS: PANTOPRAZOLE 40 MG TABLET PO SCH (08:30)
[2020-08-06] MEDS: DICYCLOMINE 10 MG CAP PO SCH (08:30)
[2020-08-06] MEDS: DILTIAZEM CD 240 MG CAP.ER.24H PO SCH (08:30)
[2020-08-06] MEDS: guaiFENesin 600 MG TABLET.ER PO SCH (08:30)
[2020-08-06] MEDS: APIXABAN 2.5 MG TABLET PO SCH (08:30)
[2020-08-06] MEDS ORDERED: CHOLECALCIFEROL 25 MCG (1000 IU) TABLET PO SCH (09:00)
[2020-08-06] MEDS ORDERED: MULTIVITAMINS, THERA 1 EACH TAB PO SCH (09:00)
[2020-08-06 11:04] LABS: Basophils # (A) 0.01 X 10*3/uL (0.00-0.10); Basophils % (A) 0.1 %; Eosinophils # (A) 0 X 10*3/uL (0.04-0.35); Eosinophils % (A) 0 %; HCT 40.7 % (37.2-46.3); HGB 12.8 g/dL (12.0-15.0); Lymphocytes # (A) 1.06 X 10*3/uL (0.90-5.00); Lymphocytes % (A) 7.6 %; MCH 27.8 pg (27.0-32.0); MCHC 31.4 g/dL (32.0-37.0); MCV 88.5 fL (80.0-97.0); Mean Platelet Volume 10.9 fL (9.5-12.2); Monocytes % (A) 1.4 %; Neutrophils % (A) 90.6 %; Platelet Count 244 X 10*3/uL (140-440); RDW 14.7 % (11.5-14.5); WBC 13.91 X 10*3/uL (4.50-10.00)
[2020-08-06 11:15] VITALS: PULSE 94
[2020-08-06 11:36] LABS: Glucose,Whole Blood 300 mg/dL (75-99)
--- NOTE | 2020-08-06 12:59 | P.DS ---
Providers Date of admission: 08/04/20 16:53 Expected date of discharge: 08/06/20 Attending physician: Kareem Issa Consults: 08/04/20 16:59 Consult Physician Routine Consulting Provider: Ventura Aguayo Consult Reason/Comments: COPD/CHF Do you want consulting provider notified?: Yes 08/05/20 09:16 Consult Physician Routine Consulting Provider: Suleman Tejada Consult Reason/Comments: shortness of breath Do you want consulting provider notified?: Yes Primary care physician: Martha Ferreira Hospital Course: Discharge diagnosis Acute diastolic congestive heart failure exacerbation Acute COPD exacerbation Underlying history of [id number] pulmonary hypertension Chronic persistent atrial fibrillation maintained on anticoagulation with heart rate is well-controlled Underlying history of hypertension Underlying history of obstructive sleep apnea maintained on CPAP Underlying history of morbid obesity Underlying history of degenerative disc disease with chronic back pain Underlying history of gastroesophageal reflux disease Hospital course Joyce Davis, is an 89-year-old female who presented to [facility] emergency room with a chief complaint of worsening shortness of breath, she was evaluated in emergency room her vital exam on presentation revealed a temperature of 98.4 pulse 96 respiration 18 blood pressure 149/115 pulse ox 98% on 2 L nasal cannula, her laboratory data revealed a white blood count of 8.3 hemoglobin 13.3 platelet count 218, BUN was 14 creatinine 0.59 CO2 36 influenza PCR and Covid 19 PCR were negative. BNP was 886 troponin level less than 0.012 . Chest x-ray in the emergency room revealed evidence of cardiomegaly with vascular prominence and small bilateral pleural effusions, EKG was done in the emergency room and revealed evidence of atrial fibrillation with a heart rate of 82. Patient was admitted to telemetry floor, she was started on IV Lasix, ech ocardiogram was requested , cardiology consultation and pulmonary consultation was requested. Her past medical history is significant for history of chronic persistent atrial fibrillation, history of diastolic congestive heart failure history of pulmonary hypertension, history of COPD, history of hypertension, history of obstructive sleep apnea, history of morbid obesity BMI is 41. On review of systems patient is alert and oriented times if he in no apparent distress she is complaining of shortness of breath and lower extremity edema otherwise she denies any complaints there is no fever or chills no headache or dizziness no chest pain no palpitation no cough no nausea or vomiting no abdominal pain no diarrhea no blood in the stools no burning with urination no frequency or urgency no hematuria On 08/06/2020 patient's alert and oriented 3. Patient was evaluated by cardiology and pulmonary services and cleared for discharge. Lung sounds are clear to auscultation. Patient did receive 1 dose of IV Lasix. Per cardiology 2-D echo does not need to be repeated recently completed. Patient cleared for discharge and can return on home dose of Lasix and follow-up outpatient with Dr. Patterson. Patient also evaluated by pulmonary services. Patient was given IV steroids. Per pulmonary team IV steroids main patient cristine recommend discharge home without prednisone taper at this time. Patient to follow-up with PCP for further management Patient Condition at Discharge: Stable Plan - Discharge Summary New Discharge Prescriptions: New guaiFENesin [Mucinex] 600 mg PO Q12HR 7 Days #14 tablet.er Continue Apixaban [Eliquis] 2.5 mg PO BID Pantoprazole Sodium [Protonix] 40 mg PO AC-BID Cholecalciferol [Vitamin D3 (25 Mcg = 1000 Iu)] 1,000 unit PO DAILY HYDROcodone/APAP 7.5-325MG [[place] 7.5-325] 1 tab PO DAILY PRN PRN Reason: Pain Levothyroxine Sodium [Synthroid] 50 mcg PO DAILY Ipratropium-Albuterol Nebulize [Duoneb 0.5 mg-3 mg/3 ml Soln] 3 ml INHALATION RT-QID ml Multivit-Min/FA/Lycopen/Lutein [Centrum Silver Tablet] 1 tab PO DAILY Albuterol Sulfate [Ventolin HFA] 1 - 2 puff INHALATION RT-Q6H PRN PRN Reason: Shortness Of Breath Dicyclomine [Bentyl] 10 mg PO DAILY Diltiazem HCl [Cardizem CD] 240 mg PO DAILY Furosemide [Lasix] 20 mg PO DAILY Magnesium Gluconate [Magonate] 500 mg PO DAILY Meclizine [Antivert] 25 mg PO Q6H PRN PRN Reason: DIZZINESS Discharge Medication List Apixaban [Eliquis] 2.5 mg PO BID 02/14/16 [History] Pantoprazole Sodium [Protonix] 40 mg PO AC-BID 09/14/18 [History] Cholecalciferol [Vitamin D3 (25 Mcg = 1000 Iu)] 1,000 unit PO DAILY 02/18/20 [History] HYDROcodone/APAP 7.5-325MG [[place] 7.5-325] 1 tab PO DAILY PRN 02/18/20 [History] Levothyroxine Sodium [Synthroid] 50 mcg PO DAILY 02/18/20 [History] Ipratropium-Albuterol Nebulize [Duoneb 0.5 mg-3 mg/3 ml Soln] 3 ml INHALATION RT-QID ml 02/21/20 [Rx] Multivit-Min/FA/Lycopen/Lutein [Centrum Silver Tablet] 1 tab PO DAILY 03/08/20 [History] Albuterol Sulfate [Ventolin HFA] 1 - 2 puff INHALATION RT-Q6H PRN 08/04/20 [History] Dicyclomine [Bentyl] 10 mg PO DAILY 08/04/20 [History] Diltiazem HCl [Cardizem CD] 240 mg PO DAILY 08/04/20 [History] Furosemide [Lasix] 20 mg PO DAILY 08/04/20 [History] Magnesium Gluconate [Magonate] 500 mg PO DAILY 08/04/20 [History] Meclizine [Antivert] 25 mg PO Q6H PRN 08/04/20 [History] guaiFENesin [Mucinex] 600 mg PO Q12HR 7 Days #14 tablet.er 08/06/20 [Rx] Follow up Appointment(s)/Referral(s): Martha Ferreira MD [Primary Care Provider] - 1-2 days Garland Patterson MD [STAFF PHYSICIAN] - 1 Week Ventura Aguayo MD [STAFF PHYSICIAN] - 1 Week Activity/Diet/Wound Care/Special Instructions: Activity as tolerated Diet heart healthy
[2020-08-06 13:24] LABS: African American GFR (CKD) 66.6 (60.0-200.0); Albumin 4.8 g/dL (3.80-4.90); Albumin/Globulin Ratio 2.29 (1.60-3.17); Anion Gap 10.2 mmol/L (4.00-12.00); BUN/Creat Ratio 28.89 Ratio (12.00-20.00); Calcium 9.3 mg/dL (8.7-10.3); Carbon Dioxide 31.8 mmol/L (21.6-31.8); Globulin 2.1 g/dL (1.6-3.3); Non-African American GFR(CKD) 57.5 (60.0-200.0); Potassium 3.9 mmol/L (3.5-5.5); Total Bilirubin 0.6 mg/dL (0.3-1.2); Total Protein 6.9 g/dL (6.2-8.2)
--- NOTE | 2020-08-06 14:22 | P.PN ---
Subjective HISTORY OF PRESENTING ILLNESS This is a pleasant 89-year-old male past medical history significant for on a persistent atrial fibrillation and Eliquis, hypertension, obstructive sleep apnea, COPD and former nicotine dependence. She follows in the office with Dr. Patterson. She is seen and examined sitting up eating breakfast in no acute distress. She denies symptoms of chest pain, shortness of breath, dizziness or palpitations. She continues to complain of a productive cough. She said last night she was coughing and she felt like she had mucus stuck in her throat. Blood pressure 131/69 heart rate 85 afebrile maintaining oxygen saturation on nasal cannula. Laboratory data reviewed, WBC 13.9, hemoglobin 12.8, platelets 244, sodium 143, potassium 3.9 and creatinine 0.9. PHYSICAL EXAMINATION CONSTITUTIONAL: No apparent distress. Obese. HEENT: Head is normocephalic. Pupils are equal, round. Sclerae anicteric. Mucous membranes of the mouth are moist. No JVD. No carotid bruit. CHEST EXAMINATION: Lungs are clear to auscultation. No chest wall tenderness is noted on palpation or with deep breathing. HEART EXAMINATION: Irregular rate and rhythm. S1, S2 heard. No murmurs, gallops or rub. EXTREMITIES: 2+ peripheral pulses, no lower extremity edema and no calf tenderness. ASSESSMENT Acute exacerbation of COPD Chronic persistent atrial fibrillation on eliquis Hypertension Obstructive sleep apnea Morbid obesity, BMI 41 PLAN Stable for discharge from a cardiac perspective. Follow up with Dr. Patterson upon discharge. Nurse Practitioner note has been reviewed, I agree with a documented findings and plan of care. Patient was seen and examined. Objective - Vital Signs Vital signs: Vital Signs Temp 98.1 F 08/06/20 07:00 Pulse 94 08/06/20 11:14 Resp 17 08/06/20 08:00 BP 131/69 08/06/20 07:00 Pulse Ox 98 08/06/20 07:00 Intake & Output 08/05/20 08/06/20 08/06/20 18:59 06:59 18:59 Intake Total 100 Output Total 300 Balance -200 Weight 86 kg Intake: Oral 100 Output: Urine 300 Other: Voiding Method Bedside Commode Bedside Commode Diaper Diaper Incontinent Incontinent # Voids 400 1 # Bowel Movements 1 - Labs CBC & Chem 7: 08/06/20 05:03 08/06/20 05:03 Labs: Abnormal Lab Results - Last 24 Hours (Table) 08/05/20 08/05/20 08/06/20 Range/Units 17:59 19:52 05:03 WBC 13.91 H (4.50-10.00) X 10*3/uL MCHC 31.4 L (32.0-37.0) g/dL RDW 14.7 H (11.5-14.5) % Neutrophils # 12.60 H (1.80-7.70) X 10*3/uL Eosinophils # 0 L (0.04-0.35) X 10*3/uL Est GFR (CKD-EPI)NonAf (60.0-200.0) BUN/Creatinine Ratio (12.00-20.00) Ratio Glucose (70-110) mg/dL POC Glucose (mg/dL) 296 H 301 H (75-99) mg/dL 08/06/20 08/06/20 08/06/20 Range/Units 05:03 06:50 11:35 WBC (4.50-10.00) X 10*3/uL MCHC (32.0-37.0) g/dL RDW (11.5-14.5) % Neutrophils # (1.80-7.70) X 10*3/uL Eosinophils # (0.04-0.35) X 10*3/uL Est GFR (CKD-EPI)NonAf 57.5 L (60.0-200.0) BUN/Creatinine Ratio 28.89 H (12.00-20.00) Ratio Glucose 249 H (70-110) mg/dL POC Glucose (mg/dL) 230 H 300 H (75-99) mg/dL Microbiology - Last 24 Hours (Table) 08/04/20 15:05 Blood Culture - Preliminary Blood No Growth after 24 hours
--- NOTE | 2020-08-06 14:58 | P.PN ---
Subjective Progress Note Date: 08/06/20 Principal diagnosis: Dyspnea 89-year-old. Patient came into the emergency department yesterday because of worsening shortness of breath. She is well-known to us from previous hos pitalizations and office visits. The patient is known to have COPD, chronic atrial fibrillation, CHF and chronic lower extremity edema. Her last echocardiogram that was done on 02/19/2020 showed a left ventricular ejection fraction of 55-60% and the patient had a preserved LV function with moderate concentric LVH, normal valvular functions, [id number] pulmonary hypertension and the IVC was not well visualized. The patient has other comorbidities include chronic atrial fibrillation, hypothyroidism, diabetes mellitus, obstructive sleep apnea, hypertension, hyperlipidemia and osteoarthri tis. The patient also has chronic anxiety and chronic depression. The patient came in yesterday to the emergency with worsening shortness of breath. Her coagulation profile was within normal limits. Her code 19 testing came back negative. ProBNP level was 886, troponin was less than 0.01, LFTs are within normal limits with mild elevation of the bilirubin of 1.4, normal renal function with a creatinine of 0.59 and electrolytes were within normal limits, white cell count was at 8.3 with a hemoglobin of 15.3. The chest x-ray showed cardiomegaly, tortuous aorta, some small bilateral pleural effusions, some mild pulmonary vascular markings bilaterally without any other consolidation or airs pace disease. She was given extra doses of IV Lasix in the emergency department and she was placed back on her regular Lasix doses. She was also placed on DuoNeb nebulized treatments around the clock, and she was started on IV Solu Medrol 60 mg every 6 hours. Is on long-term anticoagulation with Eliquis. The cardiac rhythm is atrial fibrillation, On 08/06/2020 patient in follow-up on medical floor, she is breathing easier today, less dyspneic, no wheezing on today's exam, no significant cough or phlegm production. Vital signs have been stable overnight. She is on 2 L of oxygen her pulse ox of 94-90%, no fever or chills, her influenza, COVID 19 and RSV PCR were negative. Today's labs have been reviewed, showing white blood cell count 13.9, hemoglobin is 12.8, a large lites and renal profile were within normal limits. Patient is on the once daily dose of oral Lasix, she is on Muci nex, she is on bronchodilators, is on oral anticoagulation for history of chronic A. fib, heart rate is controlled. She's had no episodes of chest pain. No swelling in lower extremities. She is in negative fluid balance Objective - Vital Signs Vital signs: Vital Signs Temp 98.1 F 08/06/20 07:00 Pulse 94 08/06/20 11:14 Resp 17 08/06/20 08:00 BP 131/69 08/06/20 07:00 Pulse Ox 98 08/06/20 07:00 Intake & Output 08/05/20 08/06/20 08/06/20 18:59 06:59 18:59 Intake Total 100 Output Total 300 Balance -200 Weight 86 kg Intake: Oral 100 Output: Urine 300 Other: Voiding Method Bedside Commode Bedside Commode Diaper Diaper Incontinent Incontinent # Voids 400 1 # Bowel Movements 1 - Exam GENERAL EXAM: Alert, very pleasant, 89-year-old female, on 2 L of oxygen pulse ox of 94-98% comfortable in no apparent distress. HEAD: Normocephalic/atraumatic. EYES: Normal reaction of pupils, equal size. Conjunctiva pink, sclera white. NOSE: Clear with pink turbinates. THROAT: No erythema or exudates. NECK: No masses, no JVD, no thyroid enlargement, no adenopathy. CHEST: No chest wall deformity. Symmetrical expansion. LUNGS: Equal air entry with minimal crackles at bilateral bases CVS: Irregular rate and rhythm, normal S1 and S2, no gallops, no murmurs, no rubs ABDOMEN: Soft, nontender. No hepatosplenomegaly, normal bowel sounds, no guarding or rigidity. EXTREMITIES: No clubbing, no edema, no cyanosis, 2+ pulses and upper and lower extremities. MUSCULOSKELETAL: Muscle strength and tone normal. SPINE: No scoliosis or deformity SKIN: No rashes CENTRAL NERVOUS SYSTEM: Alert and oriented -3. No focal deficits, tone is normal in all 4 extremities. PSYCHIATRIC: Alert and oriented -3. Appropriate affect. Intact judgment and insight. - Labs CBC & Chem 7: 08/06/20 05:03 08/06/20 05:03 Labs: Abnormal Lab Results - Last 24 Hours (Table) 08/05/20 08/05/20 08/06/20 Range/Units 17:59 19:52 05:03 WBC 13.91 H (4.50-10.00) X 10*3/uL MCHC 31.4 L (32.0-37.0) g/dL RDW 14.7 H (11.5-14.5) % Neutrophils # 12.60 H (1.80-7.70) X 10*3/uL Eosinophils # 0 L (0.04-0.35) X 10*3/uL Est GFR (CKD-EPI)NonAf (60.0-200.0) BUN/Creatinine Ratio (12.00-20.00) Ratio Glucose (70-110) mg/dL POC Glucose (mg/dL) 296 H 301 H (75-99) mg/dL 08/06/20 08/06/20 08/06/20 Range/Units 05:03 06:50 11:35 WBC (4.50-10.00) X 10*3/uL MCHC (32.0-37.0) g/dL RDW (11.5-14.5) % Neutrophils # (1.80-7.70) X 10*3/uL Eosinophils # (0.04-0.35) X 10*3/uL Est GFR (CKD-EPI)NonAf 57.5 L (60.0-200.0) BUN/Creatinine Ratio 28.89 H (12.00-20.00) Ratio Glucose 249 H (70-110) mg/dL POC Glucose (mg/dL) 230 H 300 H (75-99) mg/dL Microbiology - Last 24 Hours (Table) 08/04/20 15:05 Blood Culture - Preliminary Blood No Growth after 24 hours Assessment and Plan Plan: Assessment: 1 acute exacerbation of diastolic congestive heart failure with lower extremity edema 2 acute COPD exacerbation with secondary shortness of breath 3 chronic atrial fibrillation, anticoagulated with Eliquis 4 hypertension, currently under better control 5 obstructive sleep apnea maintained on CPAP therapy 6 morbid obesity 7 recent history of CVA/TIA 8 hyperlipidemia 9 hypertension 10 chronic pain. Maintained on Ultram 11 GE reflux, history of Plan: Patient is doing well, she is complaining that the steroids are making her shaky, no wheezing, no chest congestion, we will stop the Solu-Medrol, and patient does not need a prednisone taper, continue with home dose of oral Lasix, continue bronchodilators, oral anticoagulation, vital signs have been stable, she is tolerating ambulation in the room, from pulmonary perspective she stable for discharge home today follow-up with Dr. Aguayo in the office in 7-10 days I performed a history & physical examination of the patient and discussed their management with my nurse practitioner, Blaire Hernandez. I reviewed the nurse practitioner's note and agree with the documented findings and plan of care. Lung sounds are positive for mild bibasilar rales. The findings and the impression was discussed with the patient. I attest to the documentation by the nurse practitioner. Time with Patient: Less than 30
[2020-08-07] MEDS ORDERED: FUROSEMIDE 20 MG TAB PO SCH (09:00)
== END 2020-08-06 15:42 | disposition home or self-care (01) ==
LOC: EC 13:22 → 6NMEDSUR 16:53
PROVIDERS: ADMIT Internal Medicine; ATTEND Internal Medicine
DX: I11.0 Hypertensive heart disease with heart failure (principal); I50.33 Acute on chronic diastolic (congestive) heart failure; J44.1 Chronic obstructive pulmonary disease with (acute) exacerbation; I48.19 Other persistent atrial fibrillation; E11.9 Type 2 diabetes mellitus without complications; I27.20 Pulmonary hypertension, unspecified; E78.5 Hyperlipidemia, unspecified; K21.9 Gastro-esophageal reflux disease without esophagitis; M19.90 Unspecified osteoarthritis, unspecified site; E03.9 Hypothyroidism, unspecified; G47.33 Obstructive sleep apnea (adult) (pediatric); Z99.89 Dependence on other enabling machines and devices; E66.01 Morbid (severe) obesity due to excess calories; Z68.41 Body mass index [BMI] 40.0-44.9, adult; F32.9 Major depressive disorder, single episode, unspecified; Z20.828 Contact with and (suspected) exposure to other viral communicable diseases; F41.9 Anxiety disorder, unspecified; G89.29 Other chronic pain; M54.9 Dorsalgia, unspecified; R32 Unspecified urinary incontinence; Z79.01 Long term (current) use of anticoagulants; Z79.890 Hormone replacement therapy; Z79.891 Long term (current) use of opiate analgesic; Z79.899 Other long term (current) drug therapy; Z88.6 Allergy status to analgesic agent; Z90.49 Acquired absence of other specified parts of digestive tract; Z90.710 Acquired absence of both cervix and uterus; Z96.652 Presence of left artificial knee joint; Z98.42 Cataract extraction status, left eye; Z98.41 Cataract extraction status, right eye; Z87.891 Personal history of nicotine dependence; Z86.73 Personal history of transient ischemic attack (TIA), and cerebral infarction without residual deficits; Z82.49 Family history of ischemic heart disease and other diseases of the circulatory system; Z82.5 Family history of asthma and other chronic lower respiratory diseases; Z83.3 Family history of diabetes mellitus; Z83.49 Family history of other endocrine, nutritional and metabolic diseases; Z81.8 Family history of other mental and behavioral disorders; Z80.9 Family history of malignant neoplasm, unspecified
CPT/HCPCS: 96376 ×2; 96374; 96375; 99285; 36415; 94640 ×6; 94760; 93005; 85379; 83880; 80053 ×2; 82550; 83605; 83735; 84484; 85025 ×2; 85610; 85730; 87040; 87636; 71046; G0378 ×3; J1940 ×3; J2930 ×3

== ENCOUNTER → 2020-11-12 | Outpatient (CLI) | payer MEDICARE, OTHER ==
--- NOTE | 2020-11-12 16:52 | MR ---
EXAMINATION TYPE: MR iac wo/w con DATE OF EXAM: 11/12/2020 COMPARISON: CT brain 07/11/2020 HISTORY: Vertigo, headaches, bilateral hearing loss. R 51 TECHNIQUE: Multiplanar, multisequence images of the brain and brainstem, internal auditory canals is performed w ithout and with IV contrast, utilizing 7.5 mL intravenous Gadavist . FINDINGS: Diffusion weighted images demonstrate no evidence of a recent infarct or other diffusion ab normality. There is no extra-axial fluid collection. Confluent and scattered hyperintensities are p resent in the periventricular, pericallosal, subcortical white matter, approximately 50 lesions are p resent The ventricular system and cisternal spaces are normal in size and appearance. The brain volu me is age appropriate. Midline structures demonstrate normal morphology. The craniocervical junction appears within normal limits. Post contrast images demonstrate no abnormal enhancement. The dural venous sinuses appear pa tent. The visualized sinuses are clear and the globes are intact. There is some inflammatory change p resent in the mastoid air cells on the right extending to the temporal bone to the level of the semic ircular canals. No evident mass of the internal auditory canal, no abnormal enhancement to suggest ac oustic schwannoma IMPRESSION: Abnormal inflammatory change involving the temporal bone on the right, consider correlati on with temporal bone CT, there is abnormal signal as described.
== END | disposition home or self-care (01) ==
LOC: RADMRIMAIN 14:24
PROVIDERS: ATTEND Otolaryngology
DX: H91.93 Unspecified hearing loss, bilateral (principal)
CPT/HCPCS: 70553; A9585

== ENCOUNTER → 2020-11-20 | Outpatient (CLI) | payer MEDICARE, OTHER ==
--- NOTE | 2020-11-20 15:57 | CT ---
EXAMINATION TYPE: CT iac wo con DATE OF EXAM: 11/20/2020 COMPARISON: CT brain July 11, 2020. MRI IAC November 12, 2020 HISTORY: Abnormal MRI, hearing loss. CT DLP: 458 mGycm. Automated Exposure Control for Dose Reduction was Utilized. TECHNIQUE: CT scan of internal auditory canal is performed without contrast, thin cut axial images ar e obtained, coronal reformatted images are also reviewed. FINDINGS: The external auditory canals remain patent bilaterally. Mastoid air cells show complete op acification on the right correlating with recent MRI, findings new from July 11, 2020 CT. The middle ear ossicles are symmetric and unremarkable. There is no surrounding soft tissue density on the right. The scutum is preserved bilaterally. The cochlea and the semicircular canals are symmetric and unremarkable. Vestibular aqueduct and inte rnal carotid canal appear unremarkable. Temporomandibular joints are maintained bilaterally. Visualized paranasal sinuses are grossly clear. Visualized portion brain parenchyma is felt within normal limits. 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
== END | disposition home or self-care (01) ==
LOC: RADCTMAIN 15:00
PROVIDERS: ATTEND Otolaryngology
DX: H70.91 Unspecified mastoiditis, right ear (principal)
CPT/HCPCS: 70480

== ENCOUNTER 2021-10-29 18:37 | Inpatient (IN) | payer MEDICARE, OTHER ==
--- NOTE | 2021-10-29 19:15 | ED ---
General Adult HPI - General Chief complaint: Shortness of Breath Stated complaint: DENISSE Time Seen by Provider: 10/29/21 18:40 Source: EMS Mode of arrival: EMS Limitations: language barrier - History of Present Illness Initial comments: Dictation was produced using [employer] (PRIMP) dictation software. please excuse any grammatical, word or spelling errors. Chief Complaint: 89-year-old female multiple comorbidities presents to the emergency department for 3 days of shortness of breath History of Present Illness: Patient is a 11-year-old female presents emergency department for shortness of breath 3 days. Patient has been coughing. States productive of yellow sputum. She has history of A. fib takes and a coagulation medications. Patient also has history of heart failure. She wears 2 L of home oxygen. Denies any fever or constitutional symptoms. No obvious sick contacts. No nausea or vomiting. Denies any worsening of symptoms when lying flat. The ROS documented in this emergency department record has been reviewed and confirmed by me. Those systems with pertinent positive or negative responses have been documented in the HPI. All other systems are other negative and/or noncontributory. PHYSICAL EXAM: General Impression: Alert and oriented x3, not in acute distress HEENT: Normocephalic atraumatic, extra-ocular movements intact, pupils equal and reactive to light bilaterally, mucous membranes moist. Cardiovascular: Heart regular rate and rhythm Chest: Able to complete full sentences, no retractions, no tachypnea Abdomen: abdomen soft, non-tender, non-distended, no organomegaly Musculoskeletal: Pulses present and equal in all extremities, no peripheral edema Motor: no focal deficits noted Neurological: CN II-XII grossly intact, no focal motor or sensory deficits noted Skin: Intact with no visualized rashes Psych: Normal affect and mood ED course: 89-year-old female presents to the emergency department for shortness of breath 3 days. Vital signs upon arrival shows respiratory rate of 28, rest of vital signs within acceptable limits. She has features of respiratory infectious symptoms however she does have history of being admitted for heart failure exacerbation the past. Laboratory evaluation obtained. Mild leukocytosis 12.2. Coag panel is unremarkable. Bicarb is 42, rest metabolic panel is unremarkable. Cardiac enzymes negative. Full pedal viral PCR is negative for influenza, COVID-19 and RSV. Chest x-ray shows multifocal opacities concerning for aspiration pneumonia. Clinically patient is here for shortness of breath with productive cough. She is multiple comorbidities. Patient took a presentation concerning for bacterial pulmonary infection. Skin breathing treatments. Patient be admitted to the hospital with consultation to pulmonology. Patient be admitted to Dr. Issa. EKG interpretation: Ventricular rate on , A. fib, QS 84, QTC 333. no QTC prolongation, no ST or T-wave changes noted. EKG compared to 08/04/2020 showing no changes. Overall, this EKG is unremarkable - Related Data Home Medications Medication Instructions Recorded Confirmed Apixaban [Eliquis] 2.5 mg PO BID 02/14/16 08/04/20 Pantoprazole Sodium [Protonix] 40 mg PO AC-BID 09/14/18 08/04/20 Cholecalciferol [Vitamin D3 (25 1,000 unit PO DAILY 02/18/20 08/04/20 Mcg = 1000 Iu)] HYDROcodone/APAP 7.5-325MG [[place] 1 tab PO DAILY PRN 02/18/20 08/04/20 7.5-325] Levothyroxine Sodium [Synthroid] 50 mcg PO DAILY 02/18/20 08/04/20 Multivit-Min/FA/Lycopen/Lutein 1 tab PO DAILY 03/08/20 08/04/20 [Centrum Silver Tablet] Albuterol Sulfate [Ventolin HFA] 1 - 2 puff INHALATION RT-Q6H PRN 08/04/20 08/04/20 Dicyclomine [Bentyl] 10 mg PO DAILY 08/04/20 08/04/20 Diltiazem HCl [Cardizem CD] 240 mg PO DAILY 08/04/20 08/04/20 Furosemide [Lasix] 20 mg PO DAILY 08/04/20 08/04/20 Magnesium Gluconate [Magonate] 500 mg PO DAILY 08/04/20 08/04/20 Meclizine [Antivert] 25 mg PO Q6H PRN 08/04/20 08/04/20 Previous Rx's Medication Instructions Recorded Ipratropium-Albuterol Nebulize 3 ml INHALATION RT-QID ml 02/21/20 [Duoneb 0.5 mg-3 mg/3 ml Soln] guaiFENesin [Mucinex] 600 mg PO Q12HR 7 Days #14 08/06/20 tablet.er Allergies Allergy/AdvReac Type Severity Reaction Status Date / Time aspirin AdvReac Dyspnea,Nausea/Vomiting,Dizzy,Tingling,Warm Verified 10/29/21 20:03 sensation Review of Systems ROS Statement: Those systems with pertinent positive or pertinent negative responses have been documented in the HPI. ROS Other: All systems not noted in ROS Statement are negative. Past Medical History Past Medical History: Atrial Fibrillation, Chest Pain / Angina, Heart Failure, Diabetes Mellitus, GERD/Reflux, Hyperlipidemia, Hypertension, Osteoarthritis (OA), Respiratory Disorder, Sleep Apnea/CPAP/BIPAP, Thyroid Disorder Additional Past Medical History / Comment(s): DDD WITH BACK PAIN, OCCASIONAL SWELLING IN FEET, USES C-PAP MACHINE. History of Any Multi-Drug Resistant Organisms: ESBL Date of last positivie culture/infection: 09/22/20 ESBL Klebsiella MDRO Source:: Urine Past Surgical History: Cholecystectomy, Hysterectomy, Joint Replacement Additional Past Surgical History / Comment(s): EGD for gastric reflux. Excision of lipomas. bilateral cataracts, left total knee., Pain clinic procedures. Past Anesthesia/Blood Transfusion Reactions: No Reported Reaction Past Psychological History: Anxiety, Depression Smoking Status: Former smoker Past Alcohol Use History: None Reported Past Drug Use History: None Reported - Past Family History Brother(s) Family Medical History: Congestive Heart Failure (CHF), COPD, Coronary Artery Disease (CAD), Diabetes Mellitus Daughter(s) Additional Family Medical History / Comment(s): One from MVA Son(s) Family Medical History: Diabetes Mellitus, Hyperlipidemia, Hypertension Sister(s) Family Medical History: Cancer Mother Family Medical History: Dementia Father Family Medical History: COPD Additional Family Medical History / Comment(s): EMPHYSEMA. General Exam Limitations: language barrier Course Vital Signs 10/29/21 10/29/21 18:42 19:06 Temperature 98.5 F Pulse Rate 102 H Respiratory 28 H 32 H Rate Blood Pressure 157/87 O2 Sat by Pulse 96 Oximetry Medical Decision Making - Lab Data Result diagrams: 10/29/21 19:01 10/29/21 19:01 Lab Results 10/29/21 10/29/21 10/29/21 Range/Units 19:01 19:01 19:01 WBC 12.2 H (3.8-10.6) k/uL RBC 4.12 (3.80-5.40) m/uL Hgb 12.0 (11.4-16.0) gm/dL Hct 39.6 (34.0-46.0) % MCV 96.1 (80.0-100.0) fL MCH 29.2 (25.0-35.0) pg MCHC 30.4 L (31.0-37.0) g/dL RDW 14.2 (11.5-15.5) % Plt Count 276 (150-450) k/uL MPV 7.6 Neutrophils % 79 % Lymphocytes % 14 % Monocytes % 5 % Eosinophils % 1 % Basophils % 0 % Neutrophils # 9.6 H (1.3-7.7) k/uL Lymphocytes # 1.8 (1.0-4.8) k/uL Monocytes # 0.6 (0-1.0) k/uL Eosinophils # 0.1 (0-0.7) k/uL Basophils # 0.0 (0-0.2) k/uL Hypochromasia Marked PT 11.1 (9.0-12.0) sec INR 1.0 (<1.2) APTT 28.4 (22.0-30.0) sec Sodium 139 (137-145) mmol/L Potassium 3.6 (3.5-5.1) mmol/L Chloride 95 L (98-107) mmol/L Carbon Dioxide 42 H* (22-30) mmol/L Anion Gap 2 mmol/L BUN 16 (7-17) mg/dL Creatinine 0.43 L (0.52-1.04) mg/dL Est GFR (CKD-EPI)AfAm >90 (>60 ml/min/1.73 sqM) Est GFR (CKD-EPI)NonAf >90 (>60 ml/min/1.73 sqM) Glucose 274 H (74-99) mg/dL Calcium 8.6 (8.4-10.2) mg/dL Magnesium 1.9 (1.6-2.3) mg/dL Troponin I (0.000-0.034) ng/mL NT-Pro-B Natriuret Pep pg/mL Influenza Type A (PCR) (Not Detectd) Influenza Type B (PCR) (Not Detectd) RSV (PCR) (Not Detectd) SARS-CoV-2 (PCR) (Not Detectd) 10/29/21 10/29/21 10/29/21 Range/Units 19:01 19:01 19:01 WBC (3.8-10.6) k/uL RBC (3.80-5.40) m/uL Hgb (11.4-16.0) gm/dL Hct (34.0-46.0) % MCV (80.0-100.0) fL MCH (25.0-35.0) pg MCHC (31.0-37.0) g/dL RDW (11.5-15.5) % Plt Count (150-450) k/uL MPV Neutrophils % % Lymphocytes % % Monocytes % % Eosinophils % % Basophils % % Neutrophils # (1.3-7.7) k/uL Lymphocytes # (1.0-4.8) k/uL Monocytes # (0-1.0) k/uL Eosinophils # (0-0.7) k/uL Basophils # (0-0.2) k/uL Hypochromasia PT (9.0-12.0) sec INR (<1.2) APTT (22.0-30.0) sec Sodium (137-145) mmol/L Potassium (3.5-5.1) mmol/L Chloride (98-107) mmol/L Carbon Dioxide (22-30) mmol/L Anion Gap mmol/L BUN (7-17) mg/dL Creatinine (0.52-1.04) mg/dL Est GFR (CKD-EPI)AfAm (>60 ml/min/1.73 sqM) Est GFR (CKD-EPI)NonAf (>60 ml/min/1.73 sqM) Glucose (74-99) mg/dL Calcium (8.4-10.2) mg/dL Magnesium (1.6-2.3) mg/dL Troponin I <0.012 (0.000-0.034) ng/mL NT-Pro-B Natriuret Pep 790 pg/mL Influenza Type A (PCR) Not Detected (Not Detectd) Influenza Type B (PCR) Not Detected (Not Detectd) RSV (PCR) Not Detected (Not Detectd) SARS-CoV-2 (PCR) Not Detected (Not Detectd) Disposition Clinical Impression: Pneumonia Disposition: ADMITTED IP TO THIS HOSP Condition: Serious Referrals: Martha Ferreira MD [Primary Care Provider] - 1-2 days Decision Time: 20:07
[2021-10-29 19:23] LABS: Basophils % (A) 0 %; Eosinophils # (A) 0.1 k/uL (0-0.7); Eosinophils % (A) 1 %; HCT 39.6 % (34.0-46.0); Hypochromasia Marked; Lymphocytes # (A) 1.8 k/uL (1.0-4.8); Lymphocytes % (A) 14 %; MCH 29.2 pg (25.0-35.0); MCHC 30.4 g/dL (31.0-37.0); MCV 96.1 fL (80.0-100.0); Mean Platelet Volume 7.6; Monocytes # (A) 0.6 k/uL (0-1.0); Monocytes % (A) 5 %; Neutrophils # (A) 9.6 k/uL (1.3-7.7); Neutrophils % (A) 79 %; Platelet Count 276 k/uL (150-450); RBC 4.12 m/uL (3.80-5.40); RDW 14.2 % (11.5-15.5); WBC 12.2 k/uL (3.8-10.6)
[2021-10-29 19:28] LABS: Partial Thromboplastin Time 28.4 sec (22.0-30.0); Prothrombin Time 11.1 sec (9.0-12.0)
[2021-10-29 19:33] LABS: African American GFR (CKD) >90 (>60 ml/min/1.73 sqM); Blood Urea Nitrogen 16 mg/dL (7-17); Calcium 8.6 mg/dL (8.4-10.2); Chloride 95 mmol/L (98-107); Glucose 274 mg/dL (74-99); Magnesium 1.9 mg/dL (1.6-2.3); Non-African American GFR(CKD) >90 (>60 ml/min/1.73 sqM); Potassium 3.6 mmol/L (3.5-5.1); Sodium 139 mmol/L (137-145)
--- NOTE | 2021-10-29 19:35 | XR ---
EXAMINATION TYPE: XR chest 1V portable DATE OF EXAM: 10/29/2021 7:19 PM COMPARISON: 08/04/2020. TECHNIQUE: XR chest 1V portable Frontal view of the chest. CLINICAL INDICATION:Female, 89 years old with history of dyspnea; FINDINGS: Lungs/Pleura: Multifocal airspace opacities most pronounced in the right lung base also projecting ov er the heart. No evidence of pneumothorax or large pleural effusion. Pulmonary vascularity: Unremarkable. Heart/mediastinum: Cardiomediastinal silhouette is unremarkable. Musculoskeletal: No acute osseous pathology. IMPRESSION: Multifocal airspace opacities most pronounced in the lung bases. Correlate for aspiration pneumonia/p neumonitis.
[2021-10-29 19:41] LABS: Anion Gap 2 mmol/L
[2021-10-29 19:50] LABS: Carbon Dioxide 42 mmol/L (22-30)
[2021-10-29] MEDS ORDERED: ALBUTEROL NEBULIZED 2.5 MG/3 ML INHALATION STA (19:50)
[2021-10-29] MEDS ORDERED: DEXAMETHASONE SOD PHOSPHATE 10 MG/ML 1 ML VIAL IV STA (19:50)
[2021-10-29] MEDS ORDERED: IPRATROPIUM 0.5 MG/2.5 ML NEBU INHALATION STA (19:50)
[2021-10-29] MEDS ORDERED: cefTRIAXone IN SWFI 1,000 MG/10 ML SYRINGE IVP STA (19:51)
[2021-10-29] MEDS ORDERED: AZITHROMYCIN 500 MG in SODIUM CHLORIDE 0.9% 250 ML IVPB STA (19:51)
[2021-10-29] MEDS ORDERED: PNEUMONIA PROTOCOL UTILIZED 1 EACH MISC PO PRN (20:04)
[2021-10-29] MEDS: SODIUM CHLORIDE 0.9% 1,000 ML IV SCH (20:26)
[2021-10-30] MEDS: ALBUTEROL NEBULIZED 2.5 MG/3 ML INHALATION SCH ×4 (07:16→19:42)
[2021-10-30] MEDS: APIXABAN 2.5 MG TABLET PO SCH ×2 (07:46→21:12)
[2021-10-30] MEDS: AZITHROMYCIN 500 MG TAB PO SCH (07:46)
[2021-10-30] MEDS: FAMOTIDINE 20 MG TAB PO SCH ×2 (07:46→21:13)
[2021-10-30] MEDS: MAGNESIUM OXIDE 400 MG TAB PO SCH (07:46)
[2021-10-30] MEDS: CHOLECALCIFEROL 25 MCG (1000 IU) TABLET PO SCH (07:46)
[2021-10-30] MEDS: FUROSEMIDE 40 MG TAB PO SCH (07:46)
[2021-10-30] MEDS: MULTIVITAMINS, THERA 1 EACH TAB PO SCH (07:46)
[2021-10-30] MEDS: HYDROcodone/APAP 7.5-325MG 1 EACH TAB PO PRN ×3 (07:48→18:34)
[2021-10-30] MEDS: NON FORMULARY DRUG (Empagliflozin [Jardiance] 10 MG Tablet) PO SCH (07:49)
--- NOTE | 2021-10-30 07:49 | XR ---
EXAMINATION TYPE: XR chest 2V DATE OF EXAM: 10/30/2021 HISTORY: Shortness of breath. COMPARISON: 10/29/21 TECHNIQUE: Single view of the chest is submitted. FINDINGS: Demonstrated are scattered senescent parenchymal change. Patchy perihilar and basilar infiltrates with right-sided effusion. The heart is stable. Hilar and mediastinal structures are within normal limits. Degenerative changes are seen of the dorsal spine. IMPRESSION: 1. Patchy perihilar and basilar infiltrates with right-sided effusion.
--- NOTE | 2021-10-30 08:39 | US ---
EXAMINATION TYPE: US chest DATE OF EXAM: 10/30/2021 COMPARISON: NONE CLINICAL HISTORY: shortness of breath. SOB, right pleural effusion TECHNIQUE: Targeted ultrasound of the posterior lower bilateral hemithoraces EXAM MEASUREMENTS: Right Pleural Effusion pocket size: 1.9 cm Right skin surface to fluid distance: 3.6 cm Left Pleural Effusion pocket size: 0cm Right side NOT marked for possible thoracentesis outside the dept. Left side NOT marked for possible thoracentesis outside the dept. Pulmonologists are able to review the images in the patient?s EMR. IMPRESSIONS: As above
[2021-10-30] MEDS: LEVOTHYROXINE 75 MCG TAB PO SCH (09:34)
[2021-10-30] MEDS: DILTIAZEM CD 240 MG CAP.ER.24H PO SCH (09:34)
[2021-10-30] MEDS: MEMANTINE 5 MG TAB PO SCH ×2 (09:34→21:13)
--- NOTE | 2021-10-30 10:28 | P.HPIM ---
History of Present Illness H&P Date: 10/30/21 Chief Complaint: Shortness of breath This is an 89-year-old female patient of Dr. Ferreira who presented with complaints of shortness of breath and coughing for 3 days. Patient reports that she's had increased sputum production. Patient is a poor historian and medical history is difficult to obtain. Patient does have a past medical history according to record of atrial fibrillation, chest pain, heart failure, diabetes mellitus, GERD, hyperlipidemia, hypertension, osteoarthritis, sleep apnea and ESBL in urine. Chest x-ray was completed in ER showing multifocal airspace opacities most pronounced in the lung bases correlate for aspiration pneumonia. White blood cell elevated at 12.2. CO2 42. COVID-19 negative. Influenza negative. Troponin negative. Patient has been started on IV antibiotic Rocephin and Zithromax. Pulmonary services have been consulted. Patient also started on updraft breathing treatments. Current vital signs temp 99.1, heart rate 102, blood pressure 152/77 and pulse ox of 92% on 2 L. Patient is resting comfortably in bed. Patient denies any acute complaints. Patient denies chest pain. Patient denies nausea vomiting or diarrhea. Patient denies any urinary burning or frequency Review of Systems please refer to HPI otherwise unremarkable Past Medical History Past Medical History: Atrial Fibrillation, Chest Pain / Angina, Heart Failure, Diabetes Mellitus, GERD/Reflux, Hyperlipidemia, Hypertension, Osteoarthritis (OA), Respiratory Disorder, Sleep Apnea/CPAP/BIPAP, Thyroid Disorder Additional Past Medical History / Comment(s): DDD WITH BACK PAIN, OCCASIONAL SWELLING IN FEET, USES C-PAP MACHINE. History of Any Multi-Drug Resistant Organisms: ESBL Date of last positivie culture/infection: 09/22/20 ESBL Klebsiella MDRO Source:: Urine Past Surgical History: Cholecystectomy, Hysterectomy, Joint Replacement Additional Past Surgical History / Comment(s): EGD for gastric reflux. Excision of lipomas. bilateral cataracts, left total knee., Pain clinic procedures. Past Anesthesia/Blood Transfusion Reactions: No Reported Reaction Past Psychological History: Anxiety, Depression Smoking Status: Former smoker Past Alcohol Use History: None Reported Additional Past Alcohol Use History / Comment(s): SMOKED 3 PPD. STARTED SMOKING AGE 15, QUIT 35 YEARS AGO Past Drug Use History: None Reported Additional Drug Use History / Comment(s): . - Past Family History Brother(s) Family Medical History: Congestive Heart Failure (CHF), COPD, Coronary Artery Disease (CAD), Diabetes Mellitus Daughter(s) Additional Family Medical History / Comment(s): One from MVA Son(s) Family Medical History: Diabetes Mellitus, Hyperlipidemia, Hypertension Sister(s) Family Medical History: Cancer Mother Family Medical History: Dementia Father Family Medical History: COPD Additional Family Medical History / Comment(s): EMPHYSEMA. Medications and Allergies Home Medications Medication Instructions Recorded Confirmed Type Apixaban [Eliquis] 2.5 mg PO BID 02/14/16 10/29/21 History HYDROcodone/APAP 7.5-325MG [[place] 1 tab PO Q6H PRN 02/18/20 10/29/21 History 7.5-325] Multivit-Min/FA/Lycopen/Lutein 1 tab PO DAILY 03/08/20 10/29/21 History [Centrum Silver Tablet] Magnesium Gluconate [Magonate] 500 mg PO DAILY 08/04/20 10/29/21 History Meclizine [Antivert] 25 mg PO HS 08/04/20 10/29/21 History Cholecalciferol [Vitamin D3 (25 25 mcg PO DAILY 10/29/21 10/29/21 History Mcg = 1000 Iu)] Diltiazem HCl [Diltiazem HCl 24Hr 240 mg PO DAILY 10/29/21 10/29/21 History ER] Empagliflozin [Jardiance] 10 mg PO DAILY 10/29/21 10/29/21 History Famotidine [Pepcid] 20 mg PO BID 10/29/21 10/29/21 History Furosemide [Lasix] 40 mg PO DAILY 10/29/21 10/29/21 History Levothyroxine Sodium [Synthroid] 75 mcg PO DAILY 10/29/21 10/29/21 History Memantine [Namenda] 5 mg PO BID 10/29/21 10/29/21 History Allergies Allergy/AdvReac Type Severity Reaction Status Date / Time aspirin AdvReac Dyspnea,Nausea/Vomiting,Dizzy,Tingling,Warm Verified 10/29/21 20:03 sensation Physical Exam Vitals: Vital Signs Temp Pulse Pulse Resp BP BP Pulse Ox 10/30/21 02:00 99.1 F 102 H 16 152/77 92 L 10/30/21 01:47 98.0 F 117 H 16 144/84 90 L 10/30/21 01:21 98 F 101 H 24 140/74 97 10/29/21 22:00 98.3 F 117 H 24 143/79 94 L 10/29/21 20:28 98 10/29/21 20:18 103 H 10/29/21 19:06 32 H 10/29/21 18:42 98.5 F 102 H 28 H 157/87 96 Intake and Output 10/29/21 10/30/21 10/30/21 22:59 06:59 14:59 Intake Total 240 Balance 240 Intake: Oral 240 Other: # Voids 1 Weight 83.915 kg Head normocephalic Neck supple Lungs diminished bilaterally Heart regular rate and rhythm S1-S2, no rub or gallop Abdomen is soft nontender nondistended positive bowel sounds no hepatosplenomegaly Extremities no edema Neuro alert and orientated to 3 Results CBC & Chem 7: 10/29/21 19:01 10/29/21 19:01 Labs: Abnormal Lab Results - Last 24 Hours (Table) 10/29/21 10/29/21 Range/Units 19:01 19:01 WBC 12.2 H (3.8-10.6) k/uL MCHC 30.4 L (31.0-37.0) g/dL Neutrophils # 9.6 H (1.3-7.7) k/uL Chloride 95 L (98-107) mmol/L Carbon Dioxide 42 H* (22-30) mmol/L Creatinine 0.43 L (0.52-1.04) mg/dL Glucose 274 H (74-99) mg/dL Assessment and Plan Assessment: 1. Shortness of breath secondary to pneumonia 2. History of COPD 3. History of chronic persistent atrial fibrillation maintained on anticoagulation 4. History of essential hypertension 5. History of obstructive sleep apnea 6. History of morbid obesity 7. History of degenerative disc disease 8. History of GERD DVT prophylaxis eliquis. GI prophylaxis Protonix Patient maintained on IV antibiotics azithromycin and Rocephin Pulmonary service is consulted Repeat labs ordered Time with Patient: Greater than 30 (Greater than 60% of the total time spent in counseling and coordination of care)
--- NOTE | 2021-10-30 12:04 | P.CNPUL ---
History of Present Illness Consult date: 10/30/21 Requesting physician: Kareem Issa Reason for consult: dyspnea Chief complaint: Shortness of breath History of present illness: This is a 89-year-old female patient who follows with Dr. Aguayo in the pulmonary clinic for history of COPD baseline FEV1 49% predicted on home oxygen at 2 L on a regular basis, atrial fibrillation on [place], chronic diastolic CHF, diabetes mellitus type 2, hypertension, hyperlipidemia, sleep apnea, hypothyroidism, previous ESBL urinary tract infection, former smoker, anxiety and depression. Patient was brought in to the emergency department on 10/29/2021 a family member for evaluation of worsening shortness of breath for the past 3 days. She denied any fever, but reports being chilled, reports increased cough, increased shortness of breath. She has been having diarrhea, on average of twice a day. Denies any nausea vomiting, no abdominal pain. Chest x-ray shows multifocal opacities concerning multifocal airspace opacities, and there was a question of aspiration pneumonia/pneumonitis. EKG showed atrial fibrillation with slightly tachycardic rate of 109 BPM, and evidence of septal myocardial infarction of indeterminate age. Laboratory evaluation showed very mild leukocytosis with white blood cell count of 12.2, hemoglobin of 12, PT/INR within normal limits, CO2 is 42, last electrolytes were unremarkable, B1 is 16 creatinine 0.43, glucose was 274, troponins less than 0.012, proBNP was 790, patient tested negative for influenza A and B, RSV and COVID-19. Patient's poor historian related to a language barrier, patient's daughter is at the bedside, and reports recent history of knee surgery that was done out of state in [facility]. Was unsure of what type of surgery, however states it was not a knee replacement surgery. Patient is afebrile, she is currently on 2 L of oxygen pulse ox is 92%, breathing comfortably, does not appear to be any acute distress, denies any chest pain. She was started on empiric antibiotics in the form of azithromycin and Rocephin, home dose Lasix, and this consult was initiated. Review of Systems All systems: negative Constitutional: Denies chills, Denies fever Eyes: denies blurred vision, denies pain Ears, nose, mouth and throat: Denies headache, Denies sore throat Cardiovascular: Denies chest pain, Denies shortness of breath Respiratory: Reports cough, Reports dyspnea Gastrointestinal: Denies abdominal pain, Denies diarrhea, Denies nausea, Denies vomiting Genitourinary: Denies dysuria, Denies hematuria Musculoskeletal: Denies myalgias Integumentary: Denies pruritus, Denies rash Neurological: Denies numbness, Denies weakness Psychiatric: Denies anxiety, Denies depression Endocrine: Denies fatigue, Denies weight change Past Medical History Past Medical History: Atrial Fibrillation, Chest Pain / Angina, Heart Failure, Diabetes Mellitus, GERD/Reflux, Hyperlipidemia, Hypertension, Osteoarthritis (OA ), Respiratory Disorder, Sleep Apnea/CPAP/BIPAP, Thyroid Disorder Additional Past Medical History / Comment(s): DDD WITH BACK PAIN, OCCASIONAL SWELLING IN FEET, USES C-PAP MACHINE. History of Any Multi-Drug Resistant Organisms: ESBL Date of last positivie culture/infection: 09/22/20 ESBL Klebsiella MDRO Source:: Urine Past Surgical History: Cholecystectomy, Hysterectomy, Joint Replacement Additional Past Surgical History / Comment(s): EGD for gastric reflux. Excision of lipomas. bilateral cataracts, left total knee., Pain clinic procedures. Past Anesthesia/Blood Transfusion Reactions: No Reported Reaction Past Psychological History: Anxiety, Depression Smoking Status: Former smoker Past Alcohol Use History: None Reported Additional Past Alcohol Use History / Comment(s): SMOKED 3 PPD. STARTED SMOKING AGE 15, QUIT 35 YEARS AGO Past Drug Use History: None Reported Additional Drug Use History / Comment(s): . - Past Family History Brother(s) Family Medical History: Congestive Heart Failure (CHF), COPD, Coronary Artery Disease (CAD), Diabetes Mellitus Daughter(s) Additional Family Medical History / Comment(s): One from MVA Son(s) Family Medical History: Diabetes Mellitus, Hyperlipidemia, Hypertension Sister(s) Family Medical History: Cancer Mother Family Medical History: Dementia Father Family Medical History: COPD Additional Family Medical History / Comment(s): EMPHYSEMA. Medications and Allergies Home Medications Medication Instructions Recorded Confirmed Type Apixaban [Eliquis] 2.5 mg PO BID 02/14/16 10/29/21 History HYDROcodone/APAP 7.5-325MG [[place] 1 tab PO Q6H PRN 02/18/20 10/29/21 History 7.5-325] Multivit-Min/FA/Lycopen/Lutein 1 tab PO DAILY 03/08/20 10/29/21 History [Centrum Silver Tablet] Magnesium Gluconate [Magonate] 500 mg PO DAILY 08/04/20 10/29/21 History Meclizine [Antivert] 25 mg PO HS 08/04/20 10/29/21 History Cholecalciferol [Vitamin D3 (25 25 mcg PO DAILY 10/29/21 10/29/21 History Mcg = 1000 Iu)] Diltiazem HCl [Diltiazem HCl 24Hr 240 mg PO DAILY 10/29/21 10/29/21 History ER] Empagliflozin [Jardiance] 10 mg PO DAILY 10/29/21 10/29/21 History Famotidine [Pepcid] 20 mg PO BID 10/29/21 10/29/21 History Furosemide [Lasix] 40 mg PO DAILY 10/29/21 10/29/21 History Levothyroxine Sodium [Synthroid] 75 mcg PO DAILY 10/29/21 10/29/21 History Memantine [Namenda] 5 mg PO BID 10/29/21 10/29/21 History Allergies Allergy/AdvReac Type Severity Reaction Status Date / Time aspirin AdvReac Dyspnea,Nausea/Vomiting,Dizzy,Tingling,Warm Verified 10/29/21 20:03 sensation Physical Exam Vitals: Vital Signs Temp Pulse Pulse Resp BP BP Pulse Ox 10/30/21 02:00 99.1 F 102 H 16 152/77 92 L 10/30/21 01:47 98.0 F 117 H 16 144/84 90 L 10/30/21 01:21 98 F 101 H 24 140/74 97 10/29/21 22:00 98.3 F 117 H 24 143/79 94 L 10/29/21 20:28 98 10/29/21 20:18 103 H 10/29/21 19:06 32 H 10/29/21 18:42 98.5 F 102 H 28 H 157/87 96 Intake and Output 10/29/21 10/30/21 10/30/21 22:59 06:59 14:59 Intake Total 240 Balance 240 Intake: Oral 240 Other: # Voids 1 Weight 83.915 kg GENERAL EXAM: Alert, very pleasant, 89-year-old Urdu female, a definitive oxygen pulse ox 92% comfortable in no apparent distress. HEAD: Normocephalic/atraumatic. EYES: Normal reaction of pupils, equal size. Conjunctiva pink, sclera white. NOSE: Clear with pink turbinates. THROAT: No erythema or exudates. NECK: No masses, no JVD, no thyroid enlargement, no adenopathy. CHEST: No chest wall deformity. Symmetrical expansion. LUNGS: Equal air entry with crackles, diminished breath sounds at the bases CVS: Irregular rate and rhythm, normal S1 and S2, no gallops, no murmurs, no rubs ABDOMEN: Soft, nontender. No hepatosplenomegaly, normal bowel sounds, no guarding or rigidity. EXTREMITIES: No clubbing, no edema, no cyanosis, 2+ pulses and upper and lower extremities. MUSCULOSKELETAL: Muscle strength and tone normal. SPINE: No scoliosis or deformity SKIN: No rashes CENTRAL NERVOUS SYSTEM: Alert and oriented -3. No focal deficits, tone is normal in all 4 extremities. PSYCHIATRIC: Alert and oriented -3. Appropriate affect. Intact judgment and insight. Results - Laboratory Findings CBC and BMP: 10/29/21 19:10/29/21 19:01 PT/INR, D-dimer PT 11.1 sec (9.0-12.0) 10/29/21 19: INR 1.0 (<1.2) 10/29/21 19:01 Abnormal lab findings: Abnormal Labs 10/29/21 10/29/21 19:01 19:01 WBC 12.2 H MCHC 30.4 L Neutrophils # 9.6 H Chloride 95 L Carbon Dioxide 42 H* Creatinine 0.43 L Glucose 274 H - Diagnostic Findings Chest x-ray: report reviewed, image reviewed Assessment and Plan Plan: Assessment: #1. Dyspnea related to possibility of pneumonia and small right-sided pleural effusion, possibly community-acquired, COVID-19 PCR, influenza A and B and RSV were negative #2. History of chronic diastolic CHF #3. History of COPD with baseline FEV1 of 49% of predicted with chronic hypoxic respiratory failure on home oxygen at 2 L #4. Recent reported history of left knee surgery, the details are not available to us #5. History of obstructive sleep apnea #6. History of morbid obesity #7. History of diabetes multiple's type II #8. History of degenerative disc disease #9. History of GERD #10. History of hypertension #11. Hyperlipidemia #12. Chronic A. fib on Eliquis #13. Chronic pain #14. History of CVA/TIA Plan: Continue antibiotics, patient is on azithromycin and Rocephin We'll send a sputum for culture We will obtain pro-calcitonin level Ultrasound of the chest did not show a sizable pleural effusion pocket for drainage Continue medical treatment Continue breathing treatments and home dose of Lasix Continue follow her clinical course I have personally seen and examined the patient, performed the documentation and the assessment and plan as written. Number of minutes spent on the visit: [15] Time with Patient: Greater than 30
[2021-10-30 12:30] LABS: Glucose,Whole Blood 255 mg/dL (75-99)
[2021-10-30] MEDS: INSULIN ASPART (NovoLOG) 100 UNIT/ML VIAL SQ SCH ×3 (13:08→21:13)
[2021-10-30 17:27] LABS: Glucose,Whole Blood 189 mg/dL (75-99)
[2021-10-30] MEDS: MELATONIN 5 MG TABLET PO SCH (19:09)
[2021-10-30 20:07] LABS: Glucose,Whole Blood 244 mg/dL (75-99)
[2021-10-30] MEDS ORDERED: ALPRAZolam 0.25 MG TAB PO PRN (20:51)
[2021-10-30] MEDS: SODIUM CHLORIDE 0.9% 1,000 ML IV SCH (21:12)
[2021-10-30] MEDS: MECLIZINE 25 MG TAB PO SCH (21:12)
[2021-10-31] MEDS: LEVOTHYROXINE 75 MCG TAB PO SCH (06:17)
[2021-10-31] MEDS: ALBUTEROL NEBULIZED 2.5 MG/3 ML INHALATION SCH ×4 (07:21→19:18)
[2021-10-31 07:27] LABS: Basophils % (A) 0 %; Eosinophils % (A) 0 %; HCT 40.4 % (34.0-46.0); HGB 11.7 gm/dL (11.4-16.0); Hypochromasia Moderate; Lymphocytes # (A) 0.9 k/uL (1.0-4.8); Lymphocytes % (A) 9 %; MCH 27.9 pg (25.0-35.0); MCV 96.3 fL (80.0-100.0); Mean Platelet Volume 7.6; Monocytes # (A) 0.4 k/uL (0-1.0); Monocytes % (A) 4 %; Neutrophils # (A) 8.1 k/uL (1.3-7.7); Neutrophils % (A) 85 %; Platelet Count 326 k/uL (150-450); RDW 13.9 % (11.5-15.5); WBC 9.5 k/uL (3.8-10.6)
[2021-10-31 07:33] LABS: Glucose,Whole Blood 256 mg/dL (75-99)
[2021-10-31 07:39] LABS: ALT 8 U/L (4-34); AST 18 U/L (14-36); African American GFR (CKD) >90 (>60 ml/min/1.73 sqM); Albumin 3.4 g/dL (3.5-5.0); Alkaline Phosphatase 93 U/L (38-126); Blood Urea Nitrogen 15 mg/dL (7-17); Calcium 8.7 mg/dL (8.4-10.2); Chloride 93 mmol/L (98-107); Globulin 3.4 g/dL; Glucose 210 mg/dL (74-99); Non-African American GFR(CKD) 89 (>60 ml/min/1.73 sqM); Potassium 4.1 mmol/L (3.5-5.1); Sodium 143 mmol/L (137-145); Total Bilirubin 0.6 mg/dL (0.2-1.3); Total Protein 6.8 g/dL (6.3-8.2)
[2021-10-31 07:47] LABS: Anion Gap 8 mmol/L
[2021-10-31 08:06] LABS: Carbon Dioxide 42 mmol/L (22-30)
[2021-10-31] MEDS: INSULIN ASPART (NovoLOG) 100 UNIT/ML VIAL SQ SCH ×4 (08:24→20:44)
[2021-10-31] MEDS: FAMOTIDINE 20 MG TAB PO SCH ×2 (08:25→20:29)
[2021-10-31] MEDS: APIXABAN 2.5 MG TABLET PO SCH ×2 (08:25→20:29)
[2021-10-31] MEDS: CHOLECALCIFEROL 25 MCG (1000 IU) TABLET PO SCH (08:25)
[2021-10-31] MEDS: AZITHROMYCIN 500 MG TAB PO SCH (08:25)
[2021-10-31] MEDS: PANTOPRAZOLE 40 MG TABLET PO SCH (08:25)
[2021-10-31] MEDS: DILTIAZEM CD 240 MG CAP.ER.24H PO SCH (08:25)
[2021-10-31] MEDS: FUROSEMIDE 40 MG TAB PO SCH (08:26)
[2021-10-31] MEDS: MEMANTINE 5 MG TAB PO SCH ×2 (08:26→20:29)
[2021-10-31] MEDS: MULTIVITAMINS, THERA 1 EACH TAB PO SCH (08:26)
[2021-10-31] MEDS: MAGNESIUM OXIDE 400 MG TAB PO SCH (08:29)
[2021-10-31] MEDS: NON FORMULARY DRUG (Empagliflozin [Jardiance] 10 MG Tablet) PO SCH (10:16)
[2021-10-31] MEDS: HYDROcodone/APAP 7.5-325MG 1 EACH TAB PO PRN ×2 (12:08→20:29)
[2021-10-31 12:27] LABS: Glucose,Whole Blood 243 mg/dL (75-99)
--- NOTE | 2021-10-31 12:47 | P.PN ---
Subjective Progress Note Date: 10/31/21 This is a 89-year-old female patient who follows with Dr. Aguayo in the pulmonary clinic for history of COPD baseline FEV1 49% predicted on home oxygen at 2 L on a regular basis, atrial fibrillation on [place], chronic diastolic CHF, diabetes mellitus type 2, hypertension, hyperlipidemia, sleep apnea, hypothyroidism, previous ESBL urinary tract infection, former smoker, anxiety and depression. Patient was brought in to the emergency department on 10/29/2021 a family member for evaluation of worsening shortness of breath for the past 3 days. She denied any fever, but reports being chilled, reports increased cough, increased shortness of breath. She has been having diarrhea, on average of twice a day. Denies any nausea vomiting, no abdominal pain. Chest x-ray shows multifocal opacities concerning multifocal airspace opacities, and there was a question of aspiration pneumonia/pneumonitis. EKG showed atrial fibrillation with slightly tachycardic rate of 109 BPM, and evidence of septal myocardial infarction of indeterminate age. Laboratory evaluation showed very mild leukocytosis with white blood cell count of 12.2, hemoglobin of 12, PT/INR within normal limits, CO2 is 42, last electrolytes were unremarkable, B1 is 16 creatinine 0.43, glucose was 274, troponins less than 0.012, proBNP was 790, patient tested negative for influenza A and B, RSV and COVID-19. Patient's poor historian related to a language barrier, patient's daughter is at the bedside, and reports recent history of knee surgery that was done out of state in [place]. Was unsure of what type of surgery, however states it was not a knee replacement surgery. Patient is afebrile, she is currently on 2 L of oxygen pulse ox is 92%, breathing comfortably, does not appear to be any acute distress, denies any chest pain. She was started on empiric antibiotics in the form of azithromycin and Rocephin, home dose Lasix, and this consult was initiated. The patient is seen today 10/31/2021 in follow-up on the regular medical floor. She is currently sitting up at the bedside. Awake and alert in no acute distress. She is maintaining O2 saturations in the 90s on 2 L/m per nasal cannula. She's been afebrile. Hemodynamically stable. Ultrasound of the chest revealed only a 1.9 cm pocket on the right. No fluid documented on the left. No plans for thoracentesis. Blood cultures are pending. White count 9.5. Hemoglobin 11.7. Sodium 143. Potassium 4.1. Chloride is 93. Bicarb 42. BUN 15. Creatinine 0.45. Blood glucose 210. Pro-calcitonin 1.26. She is continued on ceftriaxone. Remains on oral diuretics. Anticoagulated with Eliquis. Objective - Vital Signs Vital signs: Vital Signs Temp 97.5 F L 10/31/21 06:15 Pulse 91 10/31/21 11:14 Resp 18 10/31/21 06:15 BP 143/89 10/31/21 08:23 Pulse Ox 99 10/31/21 06:15 Intake & Output 10/30/21 10/31/21 10/31/21 18:59 06:59 18:59 Intake Total 290 890 Balance 290 890 Intake: Intake, IV Titration 290 290 Amount Sodium Chloride 0.9% 1, 240 240 000 ml @ 20 mls/hr IV . Q24H [facility] Rx#:[id number] cefTRIAXone 2 gm In 50 50 Sodium Chloride 0.9% 50 ml @ 100 mls/hr IVPB Q24H [facility] Rx#:[id number] Oral 600 Other: Voiding Method Bedside Commode Diaper # Voids 6 1 - Exam GENERAL EXAM: Alert, very pleasant, 89-year-old Czech female, on 2 L nasal cannula, comfortable in no apparent distress. HEAD: Normocephalic/atraumatic. EYES: Normal reaction of pupils, equal size. Conjunctiva pink, sclera white. NOSE: Clear with pink turbinates. THROAT: No erythema or exudates. NECK: No masses, no JVD, no thyroid enlargement, no adenopathy. CHEST: No chest wall deformity. Symmetrical expansion. LUNGS: Equal air entry with crackles, diminished breath sounds at the bases CVS: Irregular rate and rhythm, normal S1 and S2, no gallops, no murmurs, no rubs ABDOMEN: Soft, nontender. No hepatosplenomegaly, normal bowel sounds, no guarding or rigidity. EXTREMITIES: No clubbing, no edema, no cyanosis, 2+ pulses and upper and lower extremities. MUSCULOSKELETAL: Muscle strength and tone normal. SPINE: No scoliosis or deformity SKIN: No rashes CENTRAL NERVOUS SYSTEM: No focal deficits, tone is normal in all 4 extremities. PSYCHIATRIC: Alert and oriented -3. Appropriate affect. Intact judgment and insight. - Labs CBC & Chem 7: 10/31/21 06:33 10/31/21 06:33 Labs: Abnormal Lab Results - Last 24 Hours (Table) 10/30/21 10/30/21 10/31/21 Range/Units 17:14 20:05 06:33 MCHC (31.0-37.0) g/dL Neutrophils # (1.3-7.7) k/uL Lymphocytes # (1.0-4.8) k/uL Chloride (98-107) mmol/L Carbon Dioxide (22-30) mmol/L Creatinine (0.52-1.04) mg/dL Glucose (74-99) mg/dL POC Glucose (mg/dL) 189 H 244 H (75-99) mg/dL Hemoglobin A1c (0.0-6.0) % Albumin (3.5-5.0) g/dL Procalcitonin 1.26 H (0.02-0.09) ng/mL 10/31/21 10/31/21 10/31/21 Range/Units 06:33 06:33 06:33 MCHC 29.0 L (31.0-37.0) g/dL Neutrophils # 8.1 H (1.3-7.7) k/uL Lymphocytes # 0.9 L (1.0-4.8) k/uL Chloride 93 L (98-107) mmol/L Carbon Dioxide 42 H* (22-30) mmol/L Creatinine 0.45 L (0.52-1.04) mg/dL Glucose 210 H (74-99) mg/dL POC Glucose (mg/dL) (75-99) mg/dL Hemoglobin A1c 6.3 H (0.0-6.0) % Albumin 3.4 L (3.5-5.0) g/dL Procalcitonin (0.02-0.09) ng/mL 10/31/21 10/31/21 Range/Units 07:31 12:24 MCHC (31.0-37.0) g/dL Neutrophils # (1.3-7.7) k/uL Lymphocytes # (1.0-4.8) k/uL Chloride (98-107) mmol/L Carbon Dioxide (22-30) mmol/L Creatinine (0.52-1.04) mg/dL Glucose (74-99) mg/dL POC Glucose (mg/dL) 256 H 243 H (75-99) mg/dL Hemoglobin A1c (0.0-6.0) % Albumin (3.5-5.0) g/dL Procalcitonin (0.02-0.09) ng/mL Microbiology - Last 24 Hours (Table) 10/30/21 05:50 Blood Culture - Preliminary Blood No Growth after 24 hours 10/29/21 22:29 Blood Culture - Preliminary Blood No Growth after 24 hours Assessment and Plan Assessment: 1 Dyspnea related to possibility of pneumonia and small right-sided pleural effusion, possibly community-acquired, COVID-19 PCR, influenza A and B and RSV were negative 2 History of chronic diastolic CHF 3 History of COPD with baseline FEV1 of 49% of predicted with chronic hypoxic respiratory failure on home oxygen at 2 L 4 Recent reported history of left knee surgery, the details are not available to us 5 History of obstructive sleep apnea 6 History of morbid obesity 7 History of diabetes multiple's type II 8 History of degenerative disc disease 9 History of GERD 10 History of hypertension 11 Hyperlipidemia 12 Chronic A. fib on Eliquis 13 Chronic pain 14 History of CVA/TIA Plan: The patient was seen and evaluated Ultrasound of the chest and labs reviewed No plans for thoracentesis Procalcitonin 1.26 Remains on ceftriaxone Remains on oral diuretics Anticoagulated with Eliquis We will continue to follow I have personally seen and examined the patient, performed the documentation and the assessment and plan as written. Number of minutes spent on the visit: 10.
--- NOTE | 2021-10-31 13:43 | P.PN ---
Subjective Progress Note Date: 10/31/21 Joyce Davis, is an 89-year-old female patient of Dr. Ferreira who presented with complaints of shortness of breath and coughing for 3 days. Patient reports that she's had increased sputum production. Patient is a poor historian and medical history is difficult to obtain. Patient does have a past medical history according to record of atrial fibrillation, chest pain, heart failure, diabetes mellitus, GERD, hyperlipidemia, hypertension, osteoarthritis, sleep apnea and ESBL in urine. Chest x-ray was completed in ER showing multifocal airspace opacities most pronounced in the lung bases correlate for aspiration pneumonia. White blood cell elevated at 12.2. CO2 42. COVID-19 negative. Influenza negative. Troponin negative. Patient has been started on IV antibiotic Rocephin and Zithromax. Pulmonary services have been consulted. Patient also started on updraft breathing treatments. Current vital signs temp 99.1, heart rate 102, blood pressure 152/77 and pulse ox of 92% on 2 L. Patient is resting comfortably in bed. Patient denies any acute complaints. Patient denies chest pain. Patient denies nausea vomiting or diarrhea. Patient denies any urinary burning or frequency On 10/31/2021 patient was seen and examined on the medical floor she is alert and oriented 3 in no apparent distress she is complaining of cough with sputum production, she is also complaining of shortness of breath with activity and complaining of low back pain, otherwise she denies any complaints at this time there is no fever or chills no headache or dizziness no chest pain no nausea or vomiting no abdominal pain no diarrhea no blood in the stools and no urinary symptoms. Daughter is at bedside and was helping with translating to patient. Objective - Vital Signs Vital signs: Vital Signs Temp 97.5 F L 10/31/21 06:15 Pulse 60 10/31/21 08:23 Resp 18 10/31/21 06:15 BP 143/89 10/31/21 08:23 Pulse Ox 99 10/31/21 06:15 Intake & Output 10/30/21 10/31/21 10/31/21 18:59 06:59 18:59 Intake Total 290 890 Balance 290 890 Intake: Intake, IV Titration 290 290 Amount Sodium Chloride 0.9% 1, 240 240 000 ml @ 20 mls/hr IV . Q24H [facility] Rx#:[id number] cefTRIAXone 2 gm In 50 50 Sodium Chloride 0.9% 50 ml @ 100 mls/hr IVPB Q24H [facility] Rx#:[id number] Oral 600 Other: Voiding Method Bedside Commode Diaper # Voids 6 1 - Exam In general patient is alert and oriented x 3 in no distress HEENT head normocephalic and atraumatic Neck is supple no JVD no goiter no lymphadenopathy no carotid bruit Chest examination reveals a crackles in both lung nguyen with wheezing Cardiac exam reveals regular heart sounds S1 and S2 no gallops no murmurs Abdomen is soft nontender no organomegaly with normal bowel sounds Extremity exam reveals no edema no cyanosis or clubbing Neurological examination reveals no gross focal deficits - Labs CBC & Chem 7: 10/31/21 06:33 10/31/21 06:33 Labs: Abnormal Lab Results - Last 24 Hours (Table) 10/30/21 10/30/21 10/30/21 Range/Units 12:29 17:14 20:05 MCHC (31.0-37.0) g/dL Neutrophils # (1.3-7.7) k/uL Lymphocytes # (1.0-4.8) k/uL Chloride (98-107) mmol/L Carbon Dioxide (22-30) mmol/L Creatinine (0.52-1.04) mg/dL Glucose (74-99) mg/dL POC Glucose (mg/dL) 255 H 189 H 244 H (75-99) mg/dL Albumin (3.5-5.0) g/dL 10/31/21 10/31/21 10/31/21 Range/Units 06:33 06:33 07:31 MCHC 29.0 L (31.0-37.0) g/dL Neutrophils # 8.1 H (1.3-7.7) k/uL Lymphocytes # 0.9 L (1.0-4.8) k/uL Chloride 93 L (98-107) mmol/L Carbon Dioxide 42 H* (22-30) mmol/L Creatinine 0.45 L (0.52-1.04) mg/dL Glucose 210 H (74-99) mg/dL POC Glucose (mg/dL) 256 H (75-99) mg/dL Albumin 3.4 L (3.5-5.0) g/dL Microbiology - Last 24 Hours (Table) 10/30/21 05:50 Blood Culture - Preliminary Blood No Growth after 24 hours 10/29/21 22:29 Blood Culture - Preliminary Blood No Growth after 24 hours Assessment and Plan Assessment: 1. Shortness of breath secondary to pneumonia 2. History of COPD 3. History of chronic persistent atrial fibrillation maintained on anticoagulation 4. History of essential hypertension 5. History of obstructive sleep apnea 6. History of morbid obesity 7. History of degenerative disc disease 8. History of GERD DVT prophylaxis eliquis. GI prophylaxis Protonix Patient maintained on IV antibiotics azithromycin and Rocephin Pulmonary service is consulted Repeat labs ordered
[2021-10-31 16:57] LABS: Glucose,Whole Blood 202 mg/dL (75-99)
[2021-10-31] MEDS: MECLIZINE 25 MG TAB PO SCH (20:29)
[2021-10-31] MEDS: MELATONIN 5 MG TABLET PO SCH (20:29)
[2021-10-31] MEDS: SODIUM CHLORIDE 0.9% 1,000 ML IV SCH (20:30)
[2021-10-31 20:31] LABS: Glucose,Whole Blood 199 mg/dL (75-99)
[2021-11-01] MEDS: HYDROcodone/APAP 7.5-325MG 1 EACH TAB PO PRN ×3 (04:27→22:39)
[2021-11-01] MEDS: LEVOTHYROXINE 75 MCG TAB PO SCH (05:49)
[2021-11-01] MEDS: ALBUTEROL NEBULIZED 2.5 MG/3 ML INHALATION SCH ×4 (07:57→19:32)
[2021-11-01 08:01] LABS: Glucose,Whole Blood 170 mg/dL (75-99)
[2021-11-01] MEDS: INSULIN ASPART (NovoLOG) 100 UNIT/ML VIAL SQ SCH ×4 (08:09→20:56)
[2021-11-01] MEDS: PANTOPRAZOLE 40 MG TABLET PO SCH (08:09)
[2021-11-01] MEDS: MULTIVITAMINS, THERA 1 EACH TAB PO SCH (08:10)
[2021-11-01] MEDS: CHOLECALCIFEROL 25 MCG (1000 IU) TABLET PO SCH (08:10)
[2021-11-01] MEDS: MEMANTINE 5 MG TAB PO SCH ×2 (08:10→20:56)
[2021-11-01] MEDS: FUROSEMIDE 40 MG TAB PO SCH (08:10)
[2021-11-01] MEDS: MAGNESIUM OXIDE 400 MG TAB PO SCH (08:10)
[2021-11-01] MEDS: DILTIAZEM CD 240 MG CAP.ER.24H PO SCH (08:10)
[2021-11-01] MEDS: FAMOTIDINE 20 MG TAB PO SCH ×2 (08:10→20:56)
[2021-11-01] MEDS: APIXABAN 2.5 MG TABLET PO SCH ×2 (08:10→20:56)
[2021-11-01] MEDS: NON FORMULARY DRUG (Empagliflozin [Jardiance] 10 MG Tablet) PO SCH (08:55)
--- NOTE | 2021-11-01 09:38 | P.PN ---
Subjective Progress Note Date: 11/01/21 Joyce Davis, is an 89-year-old female patient of Dr. Ferreira who presented with complaints of shortness of breath and coughing for 3 days. Patient reports that she's had increased sputum production. Patient is a poor historian and medical history is difficult to obtain. Patient does have a past medical history according to record of atrial fibrillation, chest pain, heart failure, diabetes mellitus, GERD, hyperlipidemia, hypertension, osteoarthritis, sleep apnea and ESBL in urine. Chest x-ray was completed in ER showing multifocal airspace opacities most pronounced in the lung bases correlate for aspiration pneumonia. White blood cell elevated at 12.2. CO2 42. COVID-19 negative. Influenza negative. Troponin negative. Patient has been started on IV antibiotic Rocephin and Zithromax. Pulmonary services have been consulted. Patient also started on updraft breathing treatments. Current vital signs temp 99.1, heart rate 102, blood pressure 152/77 and pulse ox of 92% on 2 L. Patient is resting comfortably in bed. Patient denies any acute complaints. Patient denies chest pain. Patient denies nausea vomiting or diarrhea. Patient denies any urinary burning or frequency On 10/31/2021 patient was seen and examined on the medical floor she is alert and oriented 3 in no apparent distress she is complaining of cough with sputum production, she is also complaining of shortness of breath with activity and complaining of low back pain, otherwise she denies any complaints at this time there is no fever or chills no headache or dizziness no chest pain no nausea or vomiting no abdominal pain no diarrhea no blood in the stools and no urinary symptoms. Daughter is at bedside and was helping with translating to patient. On 11/01/2021 patient is alert and oriented 3. Patient still having some cough and shortness of breath. Patient Rocephin and by mouth Lasix pulmonary services are following. Current vitals temp 98.3, heart rate 92, blood pressure 156/79 and satting 90% on 2 L. Repeat chest x-ray has been ordered per pulmonary for tomorrow 11/02/2021 Objective - Vital Signs Vital signs: Vital Signs Temp 98.3 F 11/01/21 04:29 Pulse 92 11/01/21 08:07 Resp 18 11/01/21 04:29 BP 156/79 11/01/21 08:07 Pulse Ox 98 11/01/21 08:07 Intake & Output 10/31/21 11/01/21 11/01/21 18:59 06:59 18:59 Intake Total 420 890 Balance 420 890 Intake: Intake, IV Titration 290 Amount Sodium Chloride 0.9% 1, 240 000 ml @ 20 mls/hr IV . Q24H [facility] Rx#:[id number] cefTRIAXone 2 gm In 50 Sodium Chloride 0.9% 50 ml @ 100 mls/hr IVPB Q24H [facility] Rx#:[id number] Oral 420 600 Other: Voiding Method Bedside Commode Bedside Commode Diaper Diaper # Voids 1 3 - Labs CBC & Chem 7: 10/31/21 06:33 10/31/21 06:33 Labs: Abnormal Lab Results - Last 24 Hours (Table) 10/31/21 10/31/21 10/31/21 Range/Units 06:33 06:33 12:24 POC Glucose (mg/dL) 243 H (75-99) mg/dL Hemoglobin A1c 6.3 H (0.0-6.0) % Procalcitonin 1.26 H (0.02-0.09) ng/mL 10/31/21 10/31/21 11/01/21 Range/Units 16:56 20:29 07:58 POC Glucose (mg/dL) 202 H 199 H 170 H (75-99) mg/dL Hemoglobin A1c (0.0-6.0) % Procalcitonin (0.02-0.09) ng/mL Microbiology - Last 24 Hours (Table) 10/30/21 05:50 Blood Culture - Preliminary Blood No Growth after 48 hours 10/29/21 22:29 Blood Culture - Preliminary Blood No Growth after 48 hours Assessment and Plan Assessment: 1. Shortness of breath secondary to pneumonia 2. History of COPD 3. History of chronic persistent atrial fibrillation maintained on anticoagulation 4. History of essential hypertension 5. History of obstructive sleep apnea 6. History of morbid obesity 7. History of degenerative disc disease 8. History of GERD DVT prophylaxis eliquis. GI prophylaxis Protonix Patient maintained on IV antibiotics Rocephin Pulmonary service is consulted Chest x-ray ordered for a.m. per pulmonary Repeat labs ordered
[2021-11-01 09:41] LABS: ALT 10 U/L (4-34); African American GFR (CKD) >90 (>60 ml/min/1.73 sqM); Albumin 3.1 g/dL (3.5-5.0); Albumin/Globulin Ratio 0.9; Blood Urea Nitrogen 20 mg/dL (7-17); Chloride 91 mmol/L (98-107); Globulin 3.3 g/dL; Glucose 195 mg/dL (74-99); Non-African American GFR(CKD) 88 (>60 ml/min/1.73 sqM); Sodium 141 mmol/L (137-145); Total Bilirubin 0.6 mg/dL (0.2-1.3); Total Protein 6.4 g/dL (6.3-8.2)
[2021-11-01 09:42] LABS: Basophils % (A) 0 %; Calcium 8.4 mg/dL (8.4-10.2); Eosinophils % (A) 0 %; HCT 40.6 % (34.0-46.0); HGB 11.9 gm/dL (11.4-16.0); Hypochromasia Marked; Lymphocytes # (A) 1.4 k/uL (1.0-4.8); Lymphocytes % (A) 13 %; MCH 28.2 pg (25.0-35.0); MCHC 29.3 g/dL (31.0-37.0); MCV 96.3 fL (80.0-100.0); Monocytes # (A) 0.5 k/uL (0-1.0); Monocytes % (A) 4 %; Neutrophils # (A) 8.6 k/uL (1.3-7.7); Neutrophils % (A) 81 %; Platelet Count 344 k/uL (150-450); RBC 4.21 m/uL (3.80-5.40); RDW 13.8 % (11.5-15.5); WBC 10.6 k/uL (3.8-10.6)
[2021-11-01 09:48] LABS: Anion Gap 5 mmol/L
[2021-11-01 09:58] LABS: Carbon Dioxide 45 mmol/L (22-30)
[2021-11-01 09:59] LABS: AST 23 U/L (14-36); Alkaline Phosphatase 79 U/L (38-126)
--- NOTE | 2021-11-01 11:50 | P.PN ---
Subjective Progress Note Date: 11/01/21 This is a 89-year-old female patient who follows with Dr. Aguayo in the pulmonary clinic for history of COPD baseline FEV1 49% predicted on home oxygen at 2 L on a regular basis, atrial fibrillation on Ahlquist, chronic diastolic CHF, diabetes mellitus type 2, hypertension, hyperlipidemia, sleep apnea, hypothyroidism, previous ESBL urinary tract infection, former smoker, anxiety and depression. Patient was brought in to the emergency department on 10/29/2021 a family member for evaluation of worsening shortness of breath for the past 3 days. She denied any fever, but reports being chilled, reports increased cough, increased shortness of breath. She has been having diarrhea, on average of twice a day. Denies any nausea vomiting, no abdominal pain. Chest x-ray shows multifocal opacities concerning multifocal airspace opacities, and there was a question of aspiration pneumonia/pneumonitis. EKG showed atrial fibrillation with slightly tachycardic rate of 109 BPM, and evidence of septal myocardial infarction of indeterminate age. Laboratory evaluation showed very mild leukocytosis with white blood cell count of 12.2, hemoglobin of 12, PT/INR within normal limits, CO2 is 42, last electrolytes were unremarkable, B1 is 16 creatinine 0.43, glucose was 274, troponins less than 0.012, proBNP was 790, patient tested negative for influenza A and B, RSV and COVID-19. Patient's poor historian related to a language barrier, patient's daughter is at the bedside, and reports recent history of knee surgery that was done out of state in [place]. Was unsure of what type of surgery, however states it was not a knee replacement surgery. Patient is afebrile, she is currently on 2 L of oxygen pulse ox is 92%, breathing comfortably, does not appear to be any acute distress, denies any chest pain. She was started on empiric antibiotics in the form of azithromycin and Rocephin, home dose Lasix, and this consult was initiated. The patient is seen today 10/31/2021 in follow-up on the regular medical floor. She is currently sitting up at the bedside. Awake and alert in no acute distress. She is maintaining O2 saturations in the 90s on 2 L/m per nasal cannula. She's been afebrile. Hemodynamically stable. Ultrasound of the chest revealed only a 1.9 cm pocket on the right. No fluid documented on the left. No plans for thoracentesis. Blood cultures are pending. White count 9.5. Hemoglobin 11.7. Sodium 143. Potassium 4.1. Chloride is 93. Bicarb 42. BUN 15. Creatinine 0.45. Blood glucose 210. Pro-calcitonin 1.26. She is continued on ceftriaxone. Remains on oral diuretics. Anticoagulated with Eliquis. The patient is seen today 11/01/2021 in follow-up on the regular medical floor. She is awake and alert in no acute distress. Breathing easier today compared to yesterday. Not quite back to her baseline. Maintaining good O2 saturations in the upper 90s on 2 L/m per nasal cannula. Blood cultures revealed no growth. White count 10.6. Hemoglobin 11.9. Sodium 141. Potassium 4.0. Bicarb 45. BUN 20. Creatinine 0.47. Glucose 195. She remains on ceftriaxone. Anticoagulated with Eliquis. Objective - Vital Signs Vital signs: Vital Signs Temp 98.3 F 11/01/21 04:29 Pulse 84 11/01/21 10:56 Resp 18 11/01/21 04:29 BP 156/79 11/01/21 08:07 Pulse Ox 98 11/01/21 08:07 Intake & Output 10/31/21 11/01/21 11/01/21 18:59 06:59 18:59 Intake Total 420 890 Balance 420 890 Intake: Intake, IV Titration 290 Amount Sodium Chloride 0.9% 1, 240 000 ml @ 20 mls/hr IV . Q24H [facility] Rx#:[id number] cefTRIAXone 2 gm In 50 Sodium Chloride 0.9% 50 ml @ 100 mls/hr IVPB Q24H [facility] Rx#:[id number] Oral 420 600 Other: Voiding Method Bedside Commode Bedside Commode Bedside Commode Diaper Diaper Diaper # Voids 1 3 - Exam GENERAL EXAM: Alert, 89-year-old female, on 2 L nasal cannula, comfortable in no apparent distress. HEAD: Normocephalic/atraumatic. EYES: Normal reaction of pupils, equal size. Conjunctiva pink, sclera white. NOSE: Clear with pink turbinates. THROAT: No erythema or exudates. NECK: No masses, no JVD, no thyroid enlargement, no adenopathy. CHEST: No chest wall deformity. Symmetrical expansion. LUNGS: Equal air entry with crackles, diminished breath sounds at the bases CVS: Irregular rate and rhythm, normal S1 and S2, no gallops, no murmurs, no rubs ABDOMEN: Soft, nontender. No hepatosplenomegaly, normal bowel sounds, no guarding or rigidity. EXTREMITIES: No clubbing, no edema, no cyanosis, 2+ pulses and upper and lower extremities. MUSCULOSKELETAL: Muscle strength and tone normal. SPINE: No scoliosis or deformity SKIN: No rashes CENTRAL NERVOUS SYSTEM: No focal deficits, tone is normal in all 4 extremities. PSYCHIATRIC: Alert and oriented -3. Appropriate affect. Intact judgment and insight. - Labs CBC & Chem 7: 11/01/21 09:07 11/01/21 09:07 Labs: Abnormal Lab Results - Last 24 Hours (Table) 10/31/21 10/31/21 10/31/21 Range/Units 06:33 12:24 16:56 MCHC (31.0-37.0) g/dL Neutrophils # (1.3-7.7) k/uL Chloride (98-107) mmol/L Carbon Dioxide (22-30) mmol/L BUN (7-17) mg/dL Creatinine (0.52-1.04) mg/dL Glucose (74-99) mg/dL POC Glucose (mg/dL) 243 H 202 H (75-99) mg/dL Albumin (3.5-5.0) g/dL Procalcitonin 1.26 H (0.02-0.09) ng/mL 10/31/21 11/01/21 11/01/21 Range/Units 20:29 07:58 09:07 MCHC 29.3 L (31.0-37.0) g/dL Neutrophils # 8.6 H (1.3-7.7) k/uL Chloride (98-107) mmol/L Carbon Dioxide (22-30) mmol/L BUN (7-17) mg/dL Creatinine (0.52-1.04) mg/dL Glucose (74-99) mg/dL POC Glucose (mg/dL) 199 H 170 H (75-99) mg/dL Albumin (3.5-5.0) g/dL Procalcitonin (0.02-0.09) ng/mL 11/01/21 Range/Units 09:07 MCHC (31.0-37.0) g/dL Neutrophils # (1.3-7.7) k/uL Chloride 91 L (98-107) mmol/L Carbon Dioxide 45 H* (22-30) mmol/L BUN 20 H (7-17) mg/dL Creatinine 0.47 L (0.52-1.04) mg/dL Glucose 195 H (74-99) mg/dL POC Glucose (mg/dL) (75-99) mg/dL Albumin 3.1 L (3.5-5.0) g/dL Procalcitonin (0.02-0.09) ng/mL Microbiology - Last 24 Hours (Table) 10/30/21 05:50 Blood Culture - Preliminary Blood No Growth after 48 hours 10/29/21 22:29 Blood Culture - Preliminary Blood No Growth after 48 hours Assessment and Plan Assessment: 1 Dyspnea related to possibility of pneumonia and small right-sided pleural effusion, possibly community-acquired, COVID-19 PCR, influenza A and B and RSV were negative 2 History of chronic diastolic CHF 3 History of COPD with baseline FEV1 of 49% of predicted with chronic hypoxic respiratory failure on home oxygen at 2 L 4 Recent reported history of left knee surgery, the details are not available to us 5 History of obstructive sleep apnea 6 History of morbid obesity 7 History of diabetes multiple's type II 8 History of degenerative disc disease 9 History of GERD 10 History of hypertension 11 Hyperlipidemia 12 Chronic A. fib on Eliquis 13 Chronic pain 14 History of CVA/TIA Plan: The patient was seen and evaluated Medications and labs reviewed Procalcitonin 1.26 Remains on ceftriaxone Follow-up chest x-ray in a.m. We will continue to follow I have personally seen and examined the patient, performed the documentation and the assessment and plan as written. Number of minutes spent on the visit: 10.
[2021-11-01 12:02] LABS: Glucose,Whole Blood 116 mg/dL (75-99)
[2021-11-01 17:40] LABS: Glucose,Whole Blood 182 mg/dL (75-99)
[2021-11-01 20:01] LABS: Glucose,Whole Blood 209 mg/dL (75-99)
[2021-11-01] MEDS: MELATONIN 5 MG TABLET PO SCH (20:56)
[2021-11-01] MEDS: MECLIZINE 25 MG TAB PO SCH (20:56)
[2021-11-01] MEDS: SODIUM CHLORIDE 0.9% 1,000 ML IV SCH (20:59)
[2021-11-02] MEDS: LEVOTHYROXINE 75 MCG TAB PO SCH (06:05)
[2021-11-02 06:34] LABS: Basophils # (A) 0.1 k/uL (0-0.2); Basophils % (A) 1 %; Eosinophils # (A) 0.1 k/uL (0-0.7); Eosinophils % (A) 1 %; HCT 40.8 % (34.0-46.0); HGB 12.5 gm/dL (11.4-16.0); Hypochromasia Slight; Lymphocytes % (A) 20 %; MCH 28.6 pg (25.0-35.0); MCHC 30.5 g/dL (31.0-37.0); MCV 93.6 fL (80.0-100.0); Mean Platelet Volume 7.8; Monocytes # (A) 0.6 k/uL (0-1.0); Monocytes % (A) 6 %; Neutrophils # (A) 6.9 k/uL (1.3-7.7); Neutrophils % (A) 71 %; Platelet Count 300 k/uL (150-450); RBC 4.37 m/uL (3.80-5.40); RDW 13.9 % (11.5-15.5); WBC 9.8 k/uL (3.8-10.6)
[2021-11-02 06:37] LABS: ALT 15 U/L (4-34); African American GFR (CKD) >90 (>60 ml/min/1.73 sqM); Albumin/Globulin Ratio 0.9; Calcium 8.1 mg/dL (8.4-10.2); Chloride 91 mmol/L (98-107); Globulin 3.5 g/dL; Non-African American GFR(CKD) >90 (>60 ml/min/1.73 sqM); Sodium 141 mmol/L (137-145)
[2021-11-02 06:38] LABS: Blood Urea Nitrogen 17 mg/dL (7-17)
[2021-11-02 06:43] LABS: Anion Gap 7 mmol/L
[2021-11-02 06:47] LABS: Albumin 3.1 g/dL (3.5-5.0); Carbon Dioxide 43 mmol/L (22-30); Glucose 117 mg/dL (74-99); Potassium 4.8 mmol/L (3.5-5.1); Total Bilirubin 0.9 mg/dL (0.2-1.3); Total Protein 6.6 g/dL (6.3-8.2)
[2021-11-02 06:48] LABS: AST 52 U/L (14-36); Alkaline Phosphatase 61 U/L (38-126)
[2021-11-02] MEDS: ALBUTEROL NEBULIZED 2.5 MG/3 ML INHALATION SCH ×4 (07:19→19:36)
[2021-11-02 07:43] LABS: Glucose,Whole Blood 124 mg/dL (75-99)
[2021-11-02] MEDS: INSULIN ASPART (NovoLOG) 100 UNIT/ML VIAL SQ SCH ×4 (07:56→20:08)
[2021-11-02] MEDS: CHOLECALCIFEROL 25 MCG (1000 IU) TABLET PO SCH (08:04)
[2021-11-02] MEDS: MAGNESIUM OXIDE 400 MG TAB PO SCH (08:04)
[2021-11-02] MEDS: MEMANTINE 5 MG TAB PO SCH ×2 (08:04→20:07)
[2021-11-02] MEDS: FAMOTIDINE 20 MG TAB PO SCH ×2 (08:04→20:07)
[2021-11-02] MEDS: FUROSEMIDE 40 MG TAB PO SCH (08:04)
[2021-11-02] MEDS: APIXABAN 2.5 MG TABLET PO SCH ×2 (08:04→20:08)
[2021-11-02] MEDS: MULTIVITAMINS, THERA 1 EACH TAB PO SCH (08:04)
[2021-11-02] MEDS: DILTIAZEM CD 240 MG CAP.ER.24H PO SCH (08:04)
[2021-11-02] MEDS: PANTOPRAZOLE 40 MG TABLET PO SCH (08:04)
[2021-11-02] MEDS: NON FORMULARY DRUG (Empagliflozin [Jardiance] 10 MG Tablet) PO SCH (08:33)
[2021-11-02] MEDS: HYDROcodone/APAP 7.5-325MG 1 EACH TAB PO PRN ×2 (09:13→16:41)
--- NOTE | 2021-11-02 09:36 | XR ---
EXAMINATION TYPE: XR chest 1V portable DATE OF EXAM: 11/02/2021 CLINICAL HISTORY: Cough and shortness of breath. TECHNIQUE: Single AP portable upright view of the chest is obtained. COMPARISON: Chest x-ray from 3 days earlier and older studies. FINDINGS: Persistent cardiomegaly with small to borderline moderate size right pleural effusion and small to tiny left pleural effusion. Persistent central vascular congestion. Persistent right lower l mable opacity consistent with atelectasis and/or infiltrate. Osseous structures are intact. Cholecystec gennaro clips are noted. IMPRESSION: Persistent cardiomegaly with mild central vascular congestion and small right greater lef t pleural effusions and right lower lung acute infiltrate and/or atelectasis. Favor CHF exacerbation. Some improvement in central vascular congestion noted from most recent x-ray.
[2021-11-02 11:04] LABS: Glucose,Whole Blood 210 mg/dL (75-99)
[2021-11-02] MEDS ORDERED: RX INFO: IV CONTRAST WAS GIVEN 1 EACH MISC MISCELLANE PRN (13:18)
--- NOTE | 2021-11-02 14:38 | P.PN ---
Subjective Progress Note Date: 11/02/21 Principal diagnosis: Dyspnea related to possible pneumonia and small right-sided pleural effusion This is a 89-year-old female patient who follows with Dr. Aguayo in the pulmonary clinic for history of COPD baseline FEV1 49% predicted on home oxygen at 2 L on a regular basis, atrial fibrillation on Ahlquist, chronic diastolic CHF, diabetes mellitus type 2, hypertension, hyperlipidemia, sleep apnea, hypothyroidism, previous ESBL urinary tract infection, former smoker, anxiety and depression. Patient was brought in to the emergency department on 10/29/2021 a family member for evaluation of worsening shortness of breath for the past 3 days. She denied any fever, but reports being chilled, reports increased cough, increased shortness of breath. She has been having diarrhea, on average of twice a day. Denies any nausea vomiting, no abdominal pain. Chest x-ray shows multifocal opacities concerning multifocal airspace opacities, and there was a question of aspiration pneumonia/pneumonitis. EKG showed atrial fibrillation with slightly tachycardic rate of 109 BPM, and evidence of septal myocardial infarction of indeterminate age. Laboratory evaluation showed very mild leukocytosis with white blood cell count of 12.2, hemoglobin of 12, PT/INR within normal limits, CO2 is 42, last electrolytes were unremarkable, B1 is 16 creatinine 0.43, glucose was 274, troponins less than 0.012, proBNP was 790, patient tested negative for influenza A and B, RSV and COVID-19. Patient's poor historian related to a language barrier, patient's daughter is at the bedside, and reports recent history of knee surgery that was done out of state in [place]. Was unsure of what type of surgery, however states it was not a knee replacement surgery. Patient is afebrile, she is currently on 2 L of oxygen pulse ox is 92%, breathing comfortably, does not appear to be any acute distress, denies any chest pain. She was started on empiric antibiotics in the form of azithromycin and Rocephin, home dose Lasix, and this consult was initiated. The patient is seen today 10/31/2021 in follow-up on the regular medical floor. She is currently sitting up at the bedside. Awake and alert in no acute distress. She is maintaining O2 saturations in the 90s on 2 L/m per nasal cannula. She's been afebrile. Hemodynamically stable. Ultrasound of the chest revealed only a 1.9 cm pocket on the right. No fluid documented on the left. No plans for thoracentesis. Blood cultures are pending. White count 9.5. Hemoglobin 11.7. Sodium 143. Potassium 4.1. Chloride is 93. Bicarb 42. BUN 15. Creatinine 0.45. Blood glucose 210. Pro-calcitonin 1.26. She is continue d on ceftriaxone. Remains on oral diuretics. Anticoagulated with Eliquis. The patient is seen today 11/01/2021 in follow-up on the regular medical floor. She is awake and alert in no acute distress. Breathing easier today compared to yesterday. Not quite back to her baseline. Maintaining good O2 saturations in the upper 90s on 2 L/m per nasal cannula. Blood cultures revealed no growth. White count 10.6. Hemoglobin 11.9. Sodium 141. Potassium 4.0. Bicarb 45. BUN 20. Creatinine 0.47. Glucose 195. She remains on ceftriaxone. Anticoagulated with Eliquis. On 11/02/2021 patient seen in follow-up on medical surgical floor. Denies any respiratory distress, breathing comfortably, but she states she is feeling weak. Vital signs have been stable, no fever or chills. No chest pain. No hemoptysis. Follow-up chest x-ray today showing persistent cardiomegaly with mild central vascular congestion and small right greater than left pleural effusions and right lower lung acute infiltrate and/or atelectasis. Patient remains on antibiotics with Rocephin. Vital signs have been stable, 2 L of oxygen her pulse ox is 95%. All cultures have been negative. Objective - Vital Signs Vital signs: Vital Signs Temp 98.0 F 11/02/21 04:39 Pulse 80 11/02/21 11:12 Resp 18 11/02/21 04:39 BP 146/80 11/02/21 08:01 Pulse Ox 96 11/02/21 04:39 Intake & Output 11/01/21 11/02/21 11/02/21 18:59 06:59 18:59 Intake Total 790 Balance 790 Intake: Intake, IV Titration 290 Amount Sodium Chloride 0.9% 1, 240 000 ml @ 20 mls/hr IV . Q24H [facility] Rx#:[id number] cefTRIAXone 2 gm In 50 Sodium Chloride 0.9% 50 ml @ 100 mls/hr IVPB Q24H [facility] Rx#:[id number] Oral 500 Other: Voiding Method Bedside Commode Bedside Commode Bedside Commode Diaper Diaper Diaper # Voids 2 - Exam GENERAL EXAM: Alert, very pleasant, 89-year-old female in 2 L of oxygen with a pulse ox of 95%, comfortable in no apparent distress. HEAD: Normocephalic/atraumatic. EYES: Normal reaction of pupils, equal size. Conjunctiva pink, sclera white. NOSE: Clear with pink turbinates. THROAT: No erythema or exudates. NECK: No masses, no JVD, no thyroid enlargement, no adenopathy. CHEST: No chest wall deformity. Symmetrical expansion. LUNGS: Equal air entry with no crackles, wheeze, rhonchi or dullness. CVS: Regular rate and rhythm, normal S1 and S2, no gallops, no murmurs, no rubs ABDOMEN: Soft, nontender. No hepatosplenomegaly, normal bowel sounds, no guarding or rigidity. EXTREMITIES: No clubbing, no edema, no cyanosis, 2+ pulses and upper and lower extremities. MUSCULOSKELETAL: Muscle strength and tone normal. SPINE: No scoliosis or deformity SKIN: No rashes CENTRAL NERVOUS SYSTEM: Alert and oriented -3. No focal deficits, tone is normal in all 4 extremities. PSYCHIATRIC: Alert and oriented -3. Appropriate affect. Intact judgment and insight. - Labs CBC & Chem 7: 11/02/21 05:46 11/02/21 05:46 Labs: Abnormal Lab Results - Last 24 Hours (Table) 11/01/21 11/01/21 11/02/21 Range/Units 17:36 20:00 05:46 MCHC 30.5 L (31.0-37.0) g/dL Chloride (98-107) mmol/L Carbon Dioxide (22-30) mmol/L Creatinine (0.52-1.04) mg/dL Glucose (74-99) mg/dL POC Glucose (mg/dL) 182 H 209 H (75-99) mg/dL Calcium (8.4-10.2) mg/dL AST (14-36) U/L Albumin (3.5-5.0) g/dL 05/09/22 05/09/22 05/09/22 Range/Units 05:46 07:31 11:02 MCHC (31.0-37.0) g/dL Chloride 91 L (98-107) mmol/L Carbon Dioxide 43 H* (22-30) mmol/L Creatinine 0.43 L (0.52-1.04) mg/dL Glucose 117 H (74-99) mg/dL POC Glucose (mg/dL) 124 H 210 H (75-99) mg/dL Calcium 8.1 L (8.4-10.2) mg/dL AST 52 H (14-36) U/L Albumin 3.1 L (3.5-5.0) g/dL Microbiology - Last 24 Hours (Table) 10/30/21 05:50 Blood Culture - Preliminary Blood No Growth after 72 hours 10/29/21 22:29 Blood Culture - Preliminary Blood No Growth after 72 hours Assessment and Plan Plan: Assessment: #1. Dyspnea related to possibility of pneumonia and small right-sided pleural effusion, possibly community-acquired, COVID-19 PCR, influenza A and B and RSV were negative #2. History of chronic diastolic CHF #3. History of COPD with baseline FEV1 of 49% of predicted with chronic hypoxic respiratory failure on home oxygen at 2 L #4. Recent reported history of left knee surgery, the details are not available to us #5. History of obstructive sleep apnea #6. History of morbid obesity #7. History of diabetes multiple's type II #8. History of degenerative disc disease #9. History of GERD #10. History of hypertension #11. Hyperlipidemia #12. Chronic A. fib on Eliquis #13. Chronic pain #14. History of CVA/TIA Plan: Continue current antibiotics Vitals stable Follow-up chest x-ray reviewed showing small right pleural effusion with the possibility of loculation We'll obtain CT chest with contrast Continue current medical treatment Continue to follow patient's clinical course I have personally seen and examined the patient, performed the documentation and the assessment and plan as written. Number of minutes spent on the visit: [10] Time with Patient: Less than 30
--- NOTE | 2021-11-02 15:25 | CT ---
EXAMINATION TYPE: CT chest w con DATE OF EXAM: 11/02/2021 COMPARISON: CT dated 12/28/2017 HISTORY: pneumonia CT DLP: 364.4 mGycm Automated exposure control for dose reduction was used. TECHNIQUE: CT scan of the chest is performed with IV Contrast, patient injected with 100ml mL of Isovue 300. FINDINGS: LUNGS: Large right and minimal left pleural effusions. Scattered pulmonary atelectasis most evident i n the right lower lobe with complete collapse of the middle lobe. Minimal infiltration is seen in the upper lobes, nonspecific. Patent trachea and main bronchi. MEDIASTINUM: Increased cardiac transverse diameter, please correlate with echocardiographic results. Coronary and arterial atherosclerotic calcifications. The pulmonary trunk measures 3.4 cm suggestive of pulmonary hypertension. No pericardial effusion. 12 mm precarinal lymph node with preserved fatty hilum. No other pathologically enlarged lymph nodes in the chest. OTHER: Left hepatic lobe cyst with tiny hepatic and splenic calcifications. Osteopenia with multilev el mild vertebral body collapse and advanced large bridging osteophytosis. IMPRESSION: Large right pleural effusion with scattered pulmonary atelectasis and complete collapse of the middle lobe as described above. Pulmonary edema or subtle pulmonary infection cannot be excluded, please co rrelate clinically. Recommend short-term follow-up CT scan. Other findings as detailed above.
[2021-11-02 16:46] LABS: Glucose,Whole Blood 180 mg/dL (75-99)
--- NOTE | 2021-11-02 17:12 | P.PN ---
Subjective Progress Note Date: 11/02/21 Joyce Davis, is an 89-year-old female patient of Dr. Ferreira who presented with complaints of shortness of breath and coughing for 3 days. Patient reports that she's had increased sputum production. Patient is a poor historian and medical history is difficult to obtain. Patient does have a past medical history according to record of atrial fibrillation, chest pain, heart failure, diabetes mellitus, GERD, hyperlipidemia, hypertension, osteoarthritis, sleep apnea and ESBL in urine. Chest x-ray was completed in ER showing multifocal airspace opacities most pronounced in the lung bases correlate for aspiration pneumonia. White blood cell elevated at 12.2. CO2 42. COVID-19 negative. Influenza negative. Troponin negative. Patient has been started on IV antibiotic Rocephin and Zithromax. Pulmonary services have been consulted. Patient also started on updraft breathing treatments. Current vital signs temp 99.1, heart rate 102, blood pressure 152/77 and pulse ox of 92% on 2 L. Patient is resting comfortably in bed. Patient denies any acute complaints. Patient denies chest pain. Patient denies nausea vomiting or diarrhea. Patient denies any urinary burning or frequency On 10/31/2021 patient was seen and examined on the medical floor she is alert and oriented 3 in no apparent distress she is complaining of cough with sputum production, she is also complaining of shortness of breath with activity and complaining of low back pain, otherwise she denies any complaints at this time there is no fever or chills no headache or dizziness no chest pain no nausea or vomiting no abdominal pain no diarrhea no blood in the stools and no urinary symptoms. Daughter is at bedside and was helping with translating to patient. On 11/01/2021 patient is alert and oriented 3. Patient still having some cough and shortness of breath. Patient Rocephin and by mouth Lasix pulmonary services are following. Current vitals temp 98.3, heart rate 92, blood pressure 156/79 and satting 90% on 2 L. Repeat chest x-ray has been ordered per pulmonary for tomorrow 11/02/2021 On 11/02/2021 patient was seen and examined on the medical floor she is alert and oriented 3 in no apparent distress she is complaining of cough with sputum production, she is also complaining of shortness of breath with activity and complaining of low back pain, otherwise she denies any complaints at this time there is no fever or chills no headache or dizziness no chest pain no nausea or vomiting no abdominal pain no diarrhea no blood in the stools and no urinary symptoms. CT scan of the chest done today, and revealed right sided pleural effusion, pulmonary following. Objective - Vital Signs Vital signs: Vital Signs Temp 98.0 F 11/02/21 04:39 Pulse 80 11/02/21 11:12 Resp 18 11/02/21 04:39 BP 146/80 11/02/21 08:01 Pulse Ox 96 11/02/21 04:39 Intake & Output 11/01/21 11/02/21 11/02/21 18:59 06:59 18:59 Intake Total 790 Balance 790 Intake: Intake, IV Titration 290 Amount Sodium Chloride 0.9% 1, 240 000 ml @ 20 mls/hr IV . Q24H [facility] Rx#:[id number] cefTRIAXone 2 gm In 50 Sodium Chloride 0.9% 50 ml @ 100 mls/hr IVPB Q24H [facility] Rx#:[id number] Oral 500 Other: Voiding Method Bedside Commode Bedside Commode Bedside Commode Diaper Diaper Diaper # Voids 2 - Exam In general patient is alert and oriented x 3 in no distress HEENT head normocephalic and atraumatic Neck is supple no JVD no goiter no lymphadenopathy no carotid bruit Chest examination reveals a crackles in both lung nguyen with wheezing Cardiac exam reveals regular heart sounds S1 and S2 no gallops no murmurs Abdomen is soft nontender no organomegaly with normal bowel sounds Extremity exam reveals no edema no cyanosis or clubbing Neurological examination reveals no gross focal deficits - Labs CBC & Chem 7: 11/02/21 05:46 11/02/21 05:46 Labs: Abnormal Lab Results - Last 24 Hours (Table) 11/01/21 11/01/21 11/02/21 Range/Units 17:36 20:00 05:46 MCHC 30.5 L (31.0-37.0) g/dL Chloride (98-107) mmol/L Carbon Dioxide (22-30) mmol/L Creatinine (0.52-1.04) mg/dL Glucose (74-99) mg/dL POC Glucose (mg/dL) 182 H 209 H (75-99) mg/dL Calcium (8.4-10.2) mg/dL AST (14-36) U/L Albumin (3.5-5.0) g/dL 11/02/21 11/02/21 11/02/21 Range/Units 05:46 07:31 11:02 MCHC (31.0-37.0) g/dL Chloride 91 L (98-107) mmol/L Carbon Dioxide 43 H* (22-30) mmol/L Creatinine 0.43 L (0.52-1.04) mg/dL Glucose 117 H (74-99) mg/dL POC Glucose (mg/dL) 124 H 210 H (75-99) mg/dL Calcium 8.1 L (8.4-10.2) mg/dL AST 52 H (14-36) U/L Albumin 3.1 L (3.5-5.0) g/dL Microbiology - Last 24 Hours (Table) 10/30/21 05:50 Blood Culture - Preliminary Blood No Growth after 72 hours 10/29/21 22:29 Blood Culture - Preliminary Blood No Growth after 72 hours Assessment and Plan Assessment: 1. Shortness of breath secondary to pneumonia, R sisded pleural effusion 2. History of COPD 3. History of chronic persistent atrial fibrillation maintained on anticoagulation 4. History of essential hypertension 5. History of obstructive sleep apnea 6. History of morbid obesity 7. History of degenerative disc disease 8. History of GERD DVT prophylaxis eliquis. GI prophylaxis Protonix Patient maintained on IV antibiotics Rocephin Pulmonary service is consulted Chest x-ray ordered for a.m. per pulmonary Repeat labs ordered
[2021-11-02 20:04] LABS: Glucose,Whole Blood 175 mg/dL (75-99)
[2021-11-02] MEDS: MELATONIN 5 MG TABLET PO SCH (20:07)
[2021-11-02] MEDS: MECLIZINE 25 MG TAB PO SCH (20:07)
[2021-11-02] MEDS: SODIUM CHLORIDE 0.9% 1,000 ML IV SCH (20:08)
[2021-11-03] MEDS: HYDROcodone/APAP 7.5-325MG 1 EACH TAB PO PRN ×3 (02:34→20:47)
[2021-11-03] MEDS: LEVOTHYROXINE 75 MCG TAB PO SCH (06:04)
[2021-11-03 07:09] LABS: Glucose,Whole Blood 135 mg/dL (75-99)
[2021-11-03] MEDS: ALBUTEROL NEBULIZED 2.5 MG/3 ML INHALATION SCH ×4 (07:38→21:05)
[2021-11-03] MEDS: PANTOPRAZOLE 40 MG TABLET PO SCH (08:10)
[2021-11-03] MEDS: DILTIAZEM CD 240 MG CAP.ER.24H PO SCH (08:10)
[2021-11-03] MEDS: CHOLECALCIFEROL 25 MCG (1000 IU) TABLET PO SCH (08:10)
[2021-11-03] MEDS: MEMANTINE 5 MG TAB PO SCH ×2 (08:11→22:38)
[2021-11-03] MEDS: INSULIN ASPART (NovoLOG) 100 UNIT/ML VIAL SQ SCH ×4 (08:11→22:38)
[2021-11-03] MEDS: MULTIVITAMINS, THERA 1 EACH TAB PO SCH (08:11)
[2021-11-03] MEDS: MAGNESIUM OXIDE 400 MG TAB PO SCH (08:11)
[2021-11-03] MEDS: FAMOTIDINE 20 MG TAB PO SCH ×2 (08:11→22:37)
[2021-11-03] MEDS: FUROSEMIDE 40 MG TAB PO SCH (08:11)
[2021-11-03] MEDS: NON FORMULARY DRUG (Empagliflozin [Jardiance] 10 MG Tablet) PO SCH (08:26)
--- NOTE | 2021-11-03 09:18 | US ---
EXAMINATION TYPE: US chest DATE OF EXAM: 11/03/2021 COMPARISON: CT 11/02/2021 CLINICAL HISTORY: 89-year-old female right pleural effusion. SOB, rt pl eff TECHNIQUE: Targeted ultrasound of the posterior lower Right FINDINGS: EXAM MEASUREMENTS: Right Pleural Effusion pocket size: 10.5 cm Right skin surface to fluid distance: 5.1 cm Right side marked for possible thoracentesis outside the dept. Pulmonologists are able to review the images in the patient?s EMR. There is some adjacent atelectatic lung noted. IMPRESSIONS: A moderate right pleural effusion with underlying atelectatic lung. The effusion appears to have incr eased from the ultrasound of 10/30/2021.
--- NOTE | 2021-11-03 10:33 | P.PN ---
Subjective Progress Note Date: 11/03/21 Principal diagnosis: Pleural effusion. The patient is seen today 10/31/2021 in follow-up on the regular medical floor. She is currently sitting up at the bedside. Awake and alert in no acute distress. She is maintaining O2 saturations in the 90s on 2 L/m per nasal cannula. She's been afebrile. Hemodynamically stable. Ultrasound of the chest revealed only a 1.9 cm pocket on the right. No fluid documented on the left. No plans for thoracentesis. Blood cultures are pending. White count 9.5. Hemoglobin 11.7. Sodium 143. Potassium 4.1. Chloride is 93. Bicarb 42. BUN 15. Creatinine 0.45. Blood glucose 210. Pro-calcitonin 1.26. She is continued on ceftriaxone. Remains on oral diuretics. Anticoagulated with Eliquis. The patient is seen today 11/01/2021 in follow-up on the regular medical floor. She is awake and alert in no acute distress. Breathing easier today compared to yesterday. Not quite back to her baseline. Maintaining good O2 saturations in the upper 90s on 2 L/m per nasal cannula. Blood cultures revealed no growth. White count 10.6. Hemoglobin 11.9. Sodium 141. Potassium 4.0. Bicarb 45. BUN 20. Creatinine 0.47. Glucose 195. She remains on ceftriaxone. Anticoagulated with Eliquis. On 11/02/2021 patient seen in follow-up on medical surgical floor. Denies any respiratory distress, breathing comfortably, but she states she is feeling weak. Vital signs have been stable, no fever or chills. No chest pain. No hemoptys is. Follow-up chest x-ray today showing persistent cardiomegaly with mild central vascular congestion and small right greater than left pleural effusions and right lower lung acute infiltrate and/or atelectasis. Patient remains on antibiotics with Rocephin. Vital signs have been stable, 2 L of oxygen her pulse ox is 95%. All cultures have been negative. Progress note dated 11/03/2021. The patient's most recent chest x-ray showed a worsening process in the right lower lobe. A computed tomography scan showed a larger right-sided pleural effusion, and collapse of the right lower lobe. The plan for this lady as was explained to her daughter, would be that we would attempt to do a thoracentesis on the right side, tomorrow, and follow that with bronchoscopy and airway examination. We will repeat an ultrasound of the right chest, to marked pleural effusion. The computed tomography scan was reviewed this morning by me. No new labs today. Glucose 135. Michaelle was placed on hold. She remains on 2 L of oxygen. Objective - Vital Signs Vital signs: Vital Signs Temp 97.8 F 11/03/21 04:16 Pulse 89 11/03/21 04:16 Resp 18 11/03/21 04:16 BP 131/62 11/03/21 04:16 Pulse Ox 98 11/03/21 04:16 Intake & Output 11/02/21 11/03/21 11/03/21 18:59 06:59 18:59 Intake Total 890 Balance 890 Intake: Intake, IV Titration 290 Amount Sodium Chloride 0.9% 1, 240 000 ml @ 20 mls/hr IV . Q24H [facility] Rx#:[id number] cefTRIAXone 2 gm In 50 Sodium Chloride 0.9% 50 ml @ 100 mls/hr IVPB Q24H [facility] Rx#:[id number] Oral 600 Other: Voiding Method Bedside Commode Bedside Commode Diaper Diaper # Voids 2 2 - Exam No acute distress, oriented 3. Currently on 2 L. No respiratory distress. HEENT examination is grossly unremarkable. Neck supple. Full range of motion. No adenopathy thyromegaly or neck vein distention. Cardiovascular examination reveals regular rhythm rate. S1-S2 normal. No S3 or S4. No discernible murmur noted. Heart rate 89 bpm. Lungs reveal dullness at the right base. Scattered rhonchi are appreciated. No wheezes. Breath sounds are diminished at the right base. Abdomen soft bowel sounds are heard. No masses or tenderness. Extremities are intact. No cyanosis clubbing or edema. Skin is without rash or lesion. Neurologic examination is brief but nonfocal. - Labs CBC & Chem 7: 11/02/21 05:46 11/02/21 05:46 Labs: Abnormal Lab Results - Last 24 Hours (Table) 11/02/21 11/02/21 11/02/21 Range/Units 11:02 16:40 20:02 POC Glucose (mg/dL) 210 H 180 H 175 H (75-99) mg/dL 11/03/21 Range/Units 07:08 POC Glucose (mg/dL) 135 H (75-99) mg/dL Microbiology - Last 24 Hours (Table) 10/30/21 05:50 Blood Culture - Preliminary Blood No Growth after 96 hours 11/02/21 19:40 Gram Stain - Preliminary Sputum Sputum Culture - Preliminary 10/29/21 22:29 Blood Culture - Preliminary Blood No Growth after 96 hours Assessment and Plan Assessment: #1. Dyspnea related to possibility of pneumonia and small right-sided pleural effusion, possibly community-acquired, COVID-19 PCR, influenza A and B and RSV were negative. #2. History of chronic diastolic CHF. #3. History of COPD with baseline FEV1 of 49% of predicted with chronic hypoxic respiratory failure on home oxygen at 2 L. #4. Recent reported history of left knee surgery, the details are not available to us. #5. History of obstructive sleep apnea. . #6. History of morbid obesity. #7. History of diabetes multiple's type II. #8. History of degenerative disc disease. #9. History of GERD. #10. History of hypertension. #11. Hyperlipidemia. #12. Chronic A. fib on Eliquis. #13. Chronic pain. #14. History of CVA/TIA. Plan: Plan dated 11/03/2021. The patient will have an ultrasound marking of the right chest. The plan is for tomorrow. The patient to have a right-sided thoracentesis, followed by bronchoscopy and BAL, and airway examination. This was all explained to the daughter, who explained this to the patient in [place]. The patient's blood thinner is held. No additional recommendations are made. We will continue to follow make recommendations were appropriate. Prognosis is guarded. Computed tomography scan was reviewed. Labs and medications are also reviewed. Time with Patient: Less than 30
[2021-11-03 11:29] LABS: Glucose,Whole Blood 136 mg/dL (75-99)
[2021-11-03 17:12] LABS: Glucose,Whole Blood 212 mg/dL (75-99)
--- NOTE | 2021-11-03 18:51 | P.PN ---
Subjective Progress Note Date: 11/03/21 Joyce Davis, is an 89-year-old female patient of Dr. Ferreira who presented with complaints of shortness of breath and coughing for 3 days. Patient reports that she's had increased sputum production. Patient is a poor historian and medical history is difficult to obtain. Patient does have a past medical history according to record of atrial fibrillation, chest pain, heart failure, diabetes mellitus, GERD, hyperlipidemia, hypertension, osteoarthritis, sleep apnea and ESBL in urine. Chest x-ray was completed in ER showing multifocal airspace opacities most pronounced in the lung bases correlate for aspiration pneumonia. White blood cell elevated at 12.2. CO2 42. COVID-19 negative. Influenza negative. Troponin negative. Patient has been started on IV antibiotic Rocephin and Zithromax. Pulmonary services have been consulted. Patient also started on updraft breathing treatments. Current vital signs temp 99.1, heart rate 102, blood pressure 152/77 and pulse ox of 92% on 2 L. Patient is resting comfortably in bed. Patient denies any acute complaints. Patient denies chest pain. Patient denies nausea vomiting or diarrhea. Patient denies any urinary burning or frequency On 10/31/2021 patient was seen and examined on the medical floor she is alert and oriented 3 in no apparent distress she is complaining of cough with sputum production, she is also complaining of shortness of breath with activity and complaining of low back pain, otherwise she denies any complaints at this time there is no fever or chills no headache or dizziness no chest pain no nausea or vomiting no abdominal pain no diarrhea no blood in the stools and no urinary symptoms. Daughter is at bedside and was helping with translating to patient. On 11/01/2021 patient is alert and oriented 3. Patient still having some cough and shortness of breath. Patient Rocephin and by mouth Lasix pulmonary services are following. Current vitals temp 98.3, heart rate 92, blood pressure 156/79 and satting 90% on 2 L. Repeat chest x-ray has been ordered per pulmonary for tomorrow 11/02/2021 On 11/02/2021 patient was seen and examined on the medical floor she is alert and oriented 3 in no apparent distress she is complaining of cough with sputum production, she is also complaining of shortness of breath with activity and complaining of low back pain, otherwise she denies any complaints at this time there is no fever or chills no headache or dizziness no chest pain no nausea or vomiting no abdominal pain no diarrhea no blood in the stools and no urinary symptoms. CT scan of the chest done today, and revealed right sided pleural effusion, pulmonary following. On 11/03/2021 patient was seen and examined on the medical floor she is feeling somewhat better she reports some improvement in the cough and shortness of breath otherwise she denies any complaints there is no fever or chills no headac he or dizziness no chest pain no nausea or vomiting no abdominal pain no diarrhea no blood in the stools and no urinary symptoms. At this time we are awaiting thoracentesis by pulmonary. Objective - Vital Signs Vital signs: Vital Signs Temp 97.8 F 11/03/21 04:16 Pulse 89 11/03/21 04:16 Resp 18 11/03/21 04:16 BP 131/62 11/03/21 04:16 Pulse Ox 98 11/03/21 04:16 Intake & Output 11/02/21 11/03/21 11/03/21 18:59 06:59 18:59 Intake Total 890 Balance 890 Intake: Intake, IV Titration 290 Amount Sodium Chloride 0.9% 1, 240 000 ml @ 20 mls/hr IV . Q24H [facility] Rx#:[id number] cefTRIAXone 2 gm In 50 Sodium Chloride 0.9% 50 ml @ 100 mls/hr IVPB Q24H [facility] Rx#:[id number] Oral 600 Other: Voiding Method Bedside Commode Bedside Commode Diaper Diaper # Voids 2 2 - Exam In general patient is alert and oriented x 3 in no distress HEENT head normocephalic and atraumatic Neck is supple no JVD no goiter no lymphadenopathy no carotid bruit Chest examination reveals a crackles in both lung nguyen with wheezing Cardiac exam reveals regular heart sounds S1 and S2 no gallops no murmurs Abdomen is soft nontender no organomegaly with normal bowel sounds Extremity exam reveals no edema no cyanosis or clubbing Neurological examination reveals no gross focal deficits - Labs CBC & Chem 7: 11/02/21 05:46 11/02/21 05:46 Labs: Abnormal Lab Results - Last 24 Hours (Table) 11/02/21 11/02/21 11/02/21 Range/Units 11:02 16:40 20:02 POC Glucose (mg/dL) 210 H 180 H 175 H (75-99) mg/dL 11/03/21 Range/Units 07:08 POC Glucose (mg/dL) 135 H (75-99) mg/dL Microbiology - Last 24 Hours (Table) 10/30/21 05:50 Blood Culture - Preliminary Blood No Growth after 96 hours 11/02/21 19:40 Gram Stain - Preliminary Sputum Sputum Culture - Preliminary 10/29/21 22:29 Blood Culture - Preliminary Blood No Growth after 96 hours Assessment and Plan Assessment: 1. Shortness of breath secondary to pneumonia, R sisded pleural effusion 2. History of COPD 3. History of chronic persistent atrial fibrillation maintained on anticoagulation 4. History of essential hypertension 5. History of obstructive sleep apnea 6. History of morbid obesity 7. History of degenerative disc disease 8. History of GERD DVT prophylaxis eliquis. GI prophylaxis Protonix Patient maintained on IV antibiotics Rocephin Pulmonary service is consulted Chest x-ray ordered for a.m. per pulmonary Repeat labs ordered
[2021-11-03 22:01] LABS: Glucose,Whole Blood 165 mg/dL (75-99)
[2021-11-03] MEDS: SODIUM CHLORIDE 0.9% 1,000 ML IV SCH (22:37)
[2021-11-03] MEDS: MECLIZINE 25 MG TAB PO SCH (22:38)
[2021-11-03] MEDS: MELATONIN 5 MG TABLET PO SCH (22:38)
[2021-11-04] MEDS: LEVOTHYROXINE 75 MCG TAB PO SCH (05:48)
[2021-11-04] MEDS: HYDROcodone/APAP 7.5-325MG 1 EACH TAB PO PRN ×2 (05:48→22:21)
[2021-11-04 06:58] LABS: Basophils # (A) 0.1 k/uL (0-0.2); Basophils % (A) 1 %; Eosinophils # (A) 0.1 k/uL (0-0.7); Eosinophils % (A) 1 %; HCT 44.2 % (34.0-46.0); HGB 12.5 gm/dL (11.4-16.0); Hypochromasia Marked; Lymphocytes # (A) 2.4 k/uL (1.0-4.8); Lymphocytes % (A) 23 %; MCH 27.5 pg (25.0-35.0); MCHC 28.3 g/dL (31.0-37.0); MCV 97.1 fL (80.0-100.0); Monocytes # (A) 0.4 k/uL (0-1.0); Monocytes % (A) 4 %; Neutrophils # (A) 7.4 k/uL (1.3-7.7); Neutrophils % (A) 71 %; Platelet Count 359 k/uL (150-450); RBC 4.55 m/uL (3.80-5.40); RDW 13.8 % (11.5-15.5); WBC 10.4 k/uL (3.8-10.6)
[2021-11-04 07:04] LABS: Glucose,Whole Blood 165 mg/dL (75-99)
[2021-11-04 07:28] LABS: ALT 15 U/L (4-34); AST 22 U/L (14-36); African American GFR (CKD) >90 (>60 ml/min/1.73 sqM); Albumin 2.9 g/dL (3.5-5.0); Alkaline Phosphatase 76 U/L (38-126); Blood Urea Nitrogen 17 mg/dL (7-17); Calcium 8.5 mg/dL (8.4-10.2); Chloride 91 mmol/L (98-107); Globulin 2.9 g/dL; Glucose 157 mg/dL (74-99); Non-African American GFR(CKD) 81 (>60 ml/min/1.73 sqM); Potassium 4.1 mmol/L (3.5-5.1); Sodium 143 mmol/L (137-145); Total Bilirubin 0.5 mg/dL (0.2-1.3); Total Protein 5.8 g/dL (6.3-8.2)
[2021-11-04 07:36] LABS: Anion Gap 6 mmol/L
[2021-11-04 07:54] LABS: Carbon Dioxide 46 mmol/L (22-30)
[2021-11-04] MEDS: ALBUTEROL NEBULIZED 2.5 MG/3 ML INHALATION SCH ×4 (09:15→19:42)
[2021-11-04] MEDS: INSULIN ASPART (NovoLOG) 100 UNIT/ML VIAL SQ SCH ×4 (09:32→22:06)
[2021-11-04] MEDS: DILTIAZEM CD 240 MG CAP.ER.24H PO SCH (09:34)
[2021-11-04] MEDS: FUROSEMIDE 40 MG TAB PO SCH (09:34)
--- NOTE | 2021-11-04 09:59 | P.PN ---
Subjective Progress Note Date: 11/04/21 Principal diagnosis: Dyspnea related to possible pneumonia and small right-sided pleural effusion This is a 89-year-old female patient who follows with Dr. Aguayo in the pulmonary clinic for history of COPD baseline FEV1 49% predicted on home oxygen at 2 L on a regular basis, atrial fibrillation on [place], chronic diastolic CHF, diabetes mellitus type 2, hypertension, hyperlipidemia, sleep apnea, hypothyroidism, previous ESBL urinary tract infection, former smoker, anxiety and depression. Patient was brought in to the emergency department on 10/29/2021 a family member for evaluation of worsening shortness of breath for the past 3 days. She denied any fever, but reports being chilled, reports increased cough, increased shortness of breath. She has been having diarrhea, on average of twice a day. Denies any nausea vomiting, no abdominal pain. Chest x-ray shows multifocal opacities concerning multifocal airspace opacities, and there was a question of aspiration pneumonia/pneumonitis. EKG showed atrial fibrillation with slightly tachycardic rate of 109 BPM, and evidence of septal myocardial infarction of indeterminate age. Laboratory evaluation showed very mild leukocytosis with white blood cell count of 12.2, hemoglobin of 12, PT/INR within normal limits, CO2 is 42, last electrolytes were unremarkable, B1 is 16 creatinine 0.43, glucose was 274, troponins less than 0.012, proBNP was 790, patient tested negative for influenza A and B, RSV and COVID-19. Patient's poor historian related to a language barrier, patient's daughter is at the bedside, and reports recent history of knee surgery that was done out of state in [place]. Was unsure of what type of surgery, however states it was not a knee replacement surgery. Patient is afebrile, she is currently on 2 L of oxygen pulse ox is 92%, breathing comfortably, does not appear to be any acute distress, denies any chest pain. She was started on empiric antibiotics in the form of azithromycin and Rocephin, home dose Lasix, and this consult was initiated. The patient is seen today 10/31/2021 in follow-up on the regular medical floor. She is currently sitting up at the bedside. Awake and alert in no acute distress. She is maintaining O2 saturations in the 90s on 2 L/m per nasal cannula. She's been afebrile. Hemodynamically stable. Ultrasound of the chest revealed only a 1.9 cm pocket on the right. No fluid documented on the left. No plans for thoracentesis. Blood cultures are pending. White count 9.5. Hemoglobin 11.7. Sodium 143. Potassium 4.1. Chloride is 93. Bicarb 42. BUN 15. Creatinine 0.45. Blood glucose 210. Pro-calcitonin 1.26. She is continue d on ceftriaxone. Remains on oral diuretics. Anticoagulated with Eliquis. The patient is seen today 11/01/2021 in follow-up on the regular medical floor. She is awake and alert in no acute distress. Breathing easier today compared to yesterday. Not quite back to her baseline. Maintaining good O2 saturations in the upper 90s on 2 L/m per nasal cannula. Blood cultures revealed no growth. White count 10.6. Hemoglobin 11.9. Sodium 141. Potassium 4.0. Bicarb 45. BUN 20. Creatinine 0.47. Glucose 195. She remains on ceftriaxone. Anticoagulated with Eliquis. On 11/02/2021 patient seen in follow-up on medical surgical floor. Denies any respiratory distress, breathing comfortably, but she states she is feeling weak. Vital signs have been stable, no fever or chills. No chest pain. No hemoptysis. Follow-up chest x-ray today showing persistent cardiomegaly with mild central vascular congestion and small right greater than left pleural effusions and right lower lung acute infiltrate and/or atelectasis. Patient remains on antibiotics with Rocephin. Vital signs have been stable, 2 L of oxygen her pulse ox is 95%. All cultures have been negative. On 11/04/2021 patient seen in follow-up on medical surgical floor. She is awake and alert, in no acute distress, appears generally weak, but does not appear to be in any respiratory distress, 2 L of oxygen pulse ox is 98%, vital signs have been stable, she's had no fever or chills. Does have exertional dyspnea, no cough, no chest pain. Yesterday's ultrasound of the chest showed 10.5 cm fluid pocket on the right. Computed tomography scan of the chest showed large right- sided pleural effusion with scattered pulmonary atelectasis and complete collapse of the right middle lobe. Blood and sputum cultures have been sent, negative thus far. Patient is completed a course of azithromycin and Rocephin. Continues on oral dose Lasix. No edema in lower extremities. Eliquis is on hold for right-sided thoracentesis and bronchoscopy with BAL today. Objective - Vital Signs Vital signs: Vital Signs Temp 97.7 F 11/04/21 04:25 Pulse 98 11/04/21 09:31 Resp 18 11/04/21 04:25 BP 124/73 11/04/21 09:31 Pulse Ox 98 11/04/21 09:31 Intake & Output 11/03/21 11/04/21 11/04/21 18:59 06:59 18:59 Intake Total 250 240 Balance 250 240 Intake: Intake, IV Titration 250 240 Amount Sodium Chloride 0.9% 1, 200 240 000 ml @ 20 mls/hr IV . Q24H [facility] Rx#:[id number] cefTRIAXone 2 gm In 50 Sodium Chloride 0.9% 50 ml @ 100 mls/hr IVPB Q24H [facility] Rx#:[id number] Other: Voiding Method Bedside Commode Diaper # Voids 1 # Bowel Movements 1 - Exam GENERAL EXAM: Alert, very pleasant, 89-year-old female in 2 L of oxygen with a pulse ox of 98%, comfortable in no apparent distress. HEAD: Normocephalic/atraumatic. EYES: Normal reaction of pupils, equal size. Conjunctiva pink, sclera white. NOSE: Clear with pink turbinates. THROAT: No erythema or exudates. NECK: No masses, no JVD, no thyroid enlargement, no adenopathy. CHEST: No chest wall deformity. Symmetrical expansion. LUNGS: Equal air entry with no crackles, wheeze, rhonchi or dullness. CVS: Regular rate and rhythm, normal S1 and S2, no gallops, no murmurs, no rubs ABDOMEN: Soft, nontender. No hepatosplenomegaly, normal bowel sounds, no guarding or rigidity. EXTREMITIES: No clubbing, no edema, no cyanosis, 2+ pulses and upper and lower extremities. MUSCULOSKELETAL: Muscle strength and tone normal. SPINE: No scoliosis or deformity SKIN: No rashes CENTRAL NERVOUS SYSTEM: Alert and oriented -3. No focal deficits, tone is normal in all 4 extremities. PSYCHIATRIC: Alert and oriented -3. Appropriate affect. Intact judgment and insight. - Labs CBC & Chem 7: 11/04/21 06:18 11/04/21 06:18 Labs: Abnormal Lab Results - Last 24 Hours (Table) 11/03/21 11/03/21 11/03/21 Range/Units 11:28 17:10 21:45 MCHC (31.0-37.0) g/dL Chloride (98-107) mmol/L Carbon Dioxide (22-30) mmol/L Glucose (74-99) mg/dL POC Glucose (mg/dL) 136 H 212 H 165 H (75-99) mg/dL Total Protein (6.3-8.2) g/dL Albumin (3.5-5.0) g/dL 11/04/21 11/04/21 11/04/21 Range/Units 06:18 06:18 07:02 MCHC 28.3 L (31.0-37.0) g/dL Chloride 91 L (98-107) mmol/L Carbon Dioxide 46 H* (22-30) mmol/L Glucose 157 H (74-99) mg/dL POC Glucose (mg/dL) 165 H (75-99) mg/dL Total Protein 5.8 L (6.3-8.2) g/dL Albumin 2.9 L (3.5-5.0) g/dL Microbiology - Last 24 Hours (Table) 10/30/21 05:50 Blood Culture - Preliminary Blood No Growth after 120 hours 10/29/21 22:29 Blood Culture - Preliminary Blood No Growth after 120 hours Assessment and Plan Plan: Assessment: #1. Dyspnea related to possibility of pneumonia and small right-sided pleural effusion, possibly community-acquired, COVID-19 PCR, influenza A and B and RSV were negative #2. History of chronic diastolic CHF #3. History of COPD with baseline FEV1 of 49% of predicted with chronic hypoxic respiratory failure on home oxygen at 2 L #4. Recent reported history of left knee surgery, the details are not available to us #5. History of obstructive sleep apnea #6. History of morbid obesity #7. History of diabetes multiple's type II #8. History of degenerative disc disease #9. History of GERD #10. History of hypertension #11. Hyperlipidemia #12. Chronic A. fib on Eliquis #13. Chronic pain #14. History of CVA/TIA Plan: Patient has completed 5 day course of azithromycin and Rocephin No worsening dyspnea, but does have exertional dyspnea Yesterday's ultrasound the chest has been reviewed showing a large right pleural effusion pocket and right middle lobe collapse on the computed tomography scan of the chest Patient has been nothing by mouth after midnight for right-sided thoracentesis and bronchoscopy with BAL today Eliquis is on hold, will resume after the procedure Patient is agreeable with the plan I have personally seen and examined the patient, performed the documentation and the assessment and plan as written. Number of minutes spent on the visit: [10] Time with Patient: Less than 30
[2021-11-04] MEDS: NON FORMULARY DRUG (Empagliflozin [Jardiance] 10 MG Tablet) PO SCH (10:27)
[2021-11-04] MEDS: CHOLECALCIFEROL 25 MCG (1000 IU) TABLET PO SCH (10:27)
[2021-11-04] MEDS: FAMOTIDINE 20 MG TAB PO SCH (10:27)
[2021-11-04] MEDS: PANTOPRAZOLE 40 MG TABLET PO SCH (10:27)
[2021-11-04] MEDS: MAGNESIUM OXIDE 400 MG TAB PO SCH (10:27)
[2021-11-04] MEDS: MULTIVITAMINS, THERA 1 EACH TAB PO SCH (10:28)
[2021-11-04] MEDS: MEMANTINE 5 MG TAB PO SCH ×2 (10:28→22:07)
--- NOTE | 2021-11-04 11:05 | P.PN ---
Subjective Progress Note Date: 11/04/21 Joyce Davis, is an 89-year-old female patient of Dr. Ferreira who presented with complaints of shortness of breath and coughing for 3 days. Patient reports that she's had increased sputum production. Patient is a poor historian and medical history is difficult to obtain. Patient does have a past medical history according to record of atrial fibrillation, chest pain, heart failure, diabetes mellitus, GERD, hyperlipidemia, hypertension, osteoarthritis, sleep apnea and ESBL in urine. Chest x-ray was completed in ER showing multifocal airspace opacities most pronounced in the lung bases correlate for aspiration pneumonia. White blood cell elevated at 12.2. CO2 42. COVID-19 negative. Influenza negative. Troponin negative. Patient has been started on IV antibiotic Rocephin and Zithromax. Pulmonary services have been consulted. Patient also started on updraft breathing treatments. Current vital signs temp 99.1, heart rate 102, blood pressure 152/77 and pulse ox of 92% on 2 L. Patient is resting comfortably in bed. Patient denies any acute complaints. Patient denies chest pain. Patient denies nausea vomiting or diarrhea. Patient denies any urinary burning or frequency On 10/31/2021 patient was seen and examined on the medical floor she is alert and oriented 3 in no apparent distress she is complaining of cough with sputum production, she is also complaining of shortness of breath with activity and complaining of low back pain, otherwise she denies any complaints at this time there is no fever or chills no headache or dizziness no chest pain no nausea or vomiting no abdominal pain no diarrhea no blood in the stools and no urinary symptoms. Daughter is at bedside and was helping with translating to patient. On 11/01/2021 patient is alert and oriented 3. Patient still having some cough and shortness of breath. Patient Rocephin and by mouth Lasix pulmonary services are following. Current vitals temp 98.3, heart rate 92, blood pressure 156/79 and satting 90% on 2 L. Repeat chest x-ray has been ordered per pulmonary for tomorrow 11/02/2021 On 11/02/2021 patient was seen and examined on the medical floor she is alert and oriented 3 in no apparent distress she is complaining of cough with sputum production, she is also complaining of shortness of breath with activity and complaining of low back pain, otherwise she denies any complaints at this time there is no fever or chills no headache or dizziness no chest pain no nausea or vomiting no abdominal pain no diarrhea no blood in the stools and no urinary symptoms. CT scan of the chest done today, and revealed right sided pleural effusion, pulmonary following. On 11/03/2021 patient was seen and examined on the medical floor she is feeling somewhat better she reports some improvement in the cough and shortness of breath otherwise she denies any complaints there is no fever or chills no headac he or dizziness no chest pain no nausea or vomiting no abdominal pain no diarrhea no blood in the stools and no urinary symptoms. At this time we are awaiting thoracentesis by pulmonary. On 11/04/2021 patient is resting comfortably in bed daughter at bedside. Patient still having some shortness of breath. Patient to undergo thoracentesis with bronchoscopy today for right sided pleural effusion with pulmonary services. Current vital signs heart rate 98, blood pressure 124/73 with pulses of 98% on 2 L Objective - Vital Signs Vital signs: Vital Signs Temp 97.7 F 11/04/21 04:25 Pulse 98 11/04/21 09:31 Resp 18 11/04/21 04:25 BP 124/73 11/04/21 09:31 Pulse Ox 98 11/04/21 09:31 Intake & Output 11/03/21 11/04/21 11/04/21 18:59 06:59 18:59 Intake Total 250 240 Balance 250 240 Intake: Intake, IV Titration 250 240 Amount Sodium Chloride 0.9% 1, 200 240 000 ml @ 20 mls/hr IV . Q24H [facility] Rx#:[id number] cefTRIAXone 2 gm In 50 Sodium Chloride 0.9% 50 ml @ 100 mls/hr IVPB Q24H [facility] Rx#:[id number] Other: Voiding Method Bedside Commode Bedside Commode Diaper Diaper # Voids 1 # Bowel Movements 1 - Exam In general patient is alert and oriented x 3 in no distress HEENT head normocephalic and atraumatic Neck is supple no JVD no goiter no lymphadenopathy no carotid bruit Chest examination reveals a crackles in both lung nguyen with wheezing Cardiac exam reveals regular heart sounds S1 and S2 no gallops no murmurs Abdomen is soft nontender no organomegaly with normal bowel sounds Extremity exam reveals no edema no cyanosis or clubbing Neurological examination reveals no gross focal deficits - Labs CBC & Chem 7: 11/04/21 06:18 11/04/21 06:18 Labs: Abnormal Lab Results - Last 24 Hours (Table) 11/03/21 11/03/21 11/03/21 Range/Units 11:28 17:10 21:45 MCHC (31.0-37.0) g/dL Chloride (98-107) mmol/L Carbon Dioxide (22-30) mmol/L Glucose (74-99) mg/dL POC Glucose (mg/dL) 136 H 212 H 165 H (75-99) mg/dL Total Protein (6.3-8.2) g/dL Albumin (3.5-5.0) g/dL 11/04/21 11/04/21 11/04/21 Range/Units 06:18 06:18 07:02 MCHC 28.3 L (31.0-37.0) g/dL Chloride 91 L (98-107) mmol/L Carbon Dioxide 46 H* (22-30) mmol/L Glucose 157 H (74-99) mg/dL POC Glucose (mg/dL) 165 H (75-99) mg/dL Total Protein 5.8 L (6.3-8.2) g/dL Albumin 2.9 L (3.5-5.0) g/dL Microbiology - Last 24 Hours (Table) 11/02/21 19:40 Gram Stain - Final Sputum Sputum Culture - Final 10/30/21 05:50 Blood Culture - Preliminary Blood No Growth after 120 hours 10/29/21 22:29 Blood Culture - Preliminary Blood No Growth after 120 hours Assessment and Plan Assessment: 1. Shortness of breath secondary to pneumonia, R sided pleural effusion 2. History of COPD 3. History of chronic persistent atrial fibrillation maintained on anticoagulation 4. History of essential hypertension 5. History of obstructive sleep apnea 6. History of morbid obesity 7. History of degenerative disc disease 8. History of GERD DVT prophylaxis eliquis. GI prophylaxis Protonix Pulmonary service is following Plans for thoracentesis and bronchoscopy today 11/04/2021 Repeat labs ordered
[2021-11-04 11:12] LABS: Glucose,Whole Blood 173 mg/dL (75-99)
[2021-11-04] MEDS ORDERED: GLYCOPYRROLATE 0.2 MG/ML 2 ML VIAL ONE (12:20)
[2021-11-04] MEDS ORDERED: fentaNYL (PF) 50 MCG/ML 2 ML AMP ONE (12:20)
[2021-11-04] MEDS ORDERED: MIDAZOLAM 2 MG/2 ML VIAL ONE (12:20)
[2021-11-04] MEDS ORDERED: KETAMINE 10 MG/ML 20 ML VIAL ONE (12:20)
[2021-11-04] MEDS ORDERED: IV FLUID CONTINUATION 1,000 ML IV ONE (12:23)
[2021-11-04] MEDS ORDERED: LIDOCAINE 2% INJ 20 MG/ML INTRATRACH ONE (12:27)
--- NOTE | 2021-11-04 12:48 | PCN ---
PROCEDURE NOTE PROCEDURE: Right-sided thoracentesis. PREOPERATIVE DIAGNOSIS: Right pleural effusion. POSTOPERATIVE DIAGNOSIS: Right pleural effusion. OPERATORS: 1. Dr. Pérez. 2. Dr. Hernandez. PROCEDURE DESCRIPTION: There was informed consent and universal timeout was completed, verifying correct patient, procedure, site, positioning , and implant (s) or special equipment if applicable. Ultrasound guidance was used to vinny the posterior chest. Despite the fact that the posterior chest was marked by ultrasound suggesting a reasonable pocket of fluid to be drained, despite multiple attempts to enter the pocket, I was not able to do so. It may be loculated. The patient tolerated the procedure well. A chest x-ray will be ordered. There was no immediate complication. The procedure was aborted, as no fluid could be obtained once the catheter was inserted. No fluid was sent for analysis. Again the patient tolerated the procedure well and the patient will be sent for a chest x-ray. MMODL / IJN: [id number] / MTDD
--- NOTE | 2021-11-04 13:33 | XR ---
EXAMINATION TYPE: XR chest 1V portable DATE OF EXAM: 11/04/2021 HISTORY: Status post thoracentesis COMPARISON: 11/02/2021 TECHNIQUE: Single view of the chest is submitted. FINDINGS: Right-sided effusion is smaller in size. No evidence for right-sided pneumothorax. Persistent pulmona ry venous congestion and cardiomegaly. Demonstrated are scattered senescent parenchymal change. There is no evidence for focal infiltrate. Hilar and mediastinal structures are within normal limits. Degenerative changes are seen of the dorsal spine. IMPRESSION: 1. Right-sided effusion is smaller in size. No evidence for right-sided pneumothorax. Persistent pul monary venous congestion and cardiomegaly.
--- NOTE | 2021-11-04 13:46 | PCN ---
PROCEDURE NOTE PROCEDURE: Bronchoscopy, airway examination, therapeutic lavage, BAL, right middle lobe. PREOPERATIVE DIAGNOSIS: Right lower lobe collapse. POSTOPERATIVE DIAGNOSIS: Right lower lobe collapse. OPERATORS: 1. Dr. Pérez. 2. Dr. Hernandez. The patient's procedure took place in [facility] room #1. There was informed consent and universal timeout. DESCRIPTION OF PROCEDURE: Anesthesia provided general anesthesia. After the patient was adequately sedated and being fully monitored, the bronchoscope was inserted through the right nostril. It passed through the nasopharynx into the oropharynx. It then passed into the hypopharynx. The hypopharynx appeared relatively normal. This included the anterior commissure, true cords, false cords, piriform sinuses, right and left, vallecula and epiglottis. The glottic opening was topicalized. The bronchoscope was pushed through the glottic opening into the trachea. The trachea appeared relatively normal. Tracheal cynthia was sharp. The right and left mainstem were topicalized. The right upper lobe and its 3 segments, the right middle lobe and its 2 segments, the right lower lobe and its 5 segments, the left upper lobe proper and its 2 segments, the lingula and its 2 segments and the left lower lobe and its 4 segments were all evaluated. Similar findings were noted throughout. This included mucosal friability and hyperemia of the airways. The airways were very erythematous. Secretions were suctioned with some difficulty. There was mucosal friability. There was no dominant mass or tumor. There appeared at one point to be a foreign body noted in the right lung. I could not extract it with the biopsy forceps. When I went back in to to try to find it second or third time, I could not see it. The bronchoscope was wedged into the right middle lobe. The BAL took place. Thirty mL of fluid was recovered. The patient tolerated the procedure well. The BAL will be sent for analysis. There was no immediate complication. The bronchoscope was withdrawn. MMODL / IJN: [id number] /
[2021-11-04 17:08] LABS: Glucose,Whole Blood 228 mg/dL (75-99)
[2021-11-04 20:13] LABS: Glucose,Whole Blood 184 mg/dL (75-99)
[2021-11-04] MEDS: SODIUM CHLORIDE 0.9% 1,000 ML IV SCH (22:03)
[2021-11-04] MEDS: APIXABAN 2.5 MG TABLET PO SCH (22:06)
[2021-11-04] MEDS: MELATONIN 5 MG TABLET PO SCH (22:06)
[2021-11-04] MEDS: MECLIZINE 25 MG TAB PO SCH (22:06)
[2021-11-05 00:30] LABS: Appearance,BF Bloody
[2021-11-05 04:54] VITALS: TEMP 97.8
[2021-11-05] MEDS: LEVOTHYROXINE 75 MCG TAB PO SCH (05:47)
[2021-11-05] MEDS: HYDROcodone/APAP 7.5-325MG 1 EACH TAB PO PRN ×2 (05:55→15:01)
[2021-11-05 07:47] LABS: Glucose,Whole Blood 195 mg/dL (75-99)
[2021-11-05] MEDS: ALBUTEROL NEBULIZED 2.5 MG/3 ML INHALATION SCH ×3 (08:18→15:39)
[2021-11-05] MEDS ORDERED: FAMOTIDINE 20 MG TAB PO SCH (09:00)
[2021-11-05] MEDS: CHOLECALCIFEROL 25 MCG (1000 IU) TABLET PO SCH (09:15)
[2021-11-05] MEDS: MULTIVITAMINS, THERA 1 EACH TAB PO SCH (09:15)
[2021-11-05] MEDS: APIXABAN 2.5 MG TABLET PO SCH (09:16)
[2021-11-05] MEDS: MEMANTINE 5 MG TAB PO SCH (09:16)
[2021-11-05] MEDS: PANTOPRAZOLE 40 MG TABLET PO SCH (09:16)
[2021-11-05] MEDS: DILTIAZEM CD 240 MG CAP.ER.24H PO SCH (09:16)
[2021-11-05] MEDS: FUROSEMIDE 40 MG TAB PO SCH (09:16)
[2021-11-05] MEDS: MAGNESIUM OXIDE 400 MG TAB PO SCH (09:16)
[2021-11-05] MEDS: INSULIN ASPART (NovoLOG) 100 UNIT/ML VIAL SQ SCH ×2 (09:17→13:18)
[2021-11-05 09:19] LABS: Basophils # (A) 0.01 X 10*3/uL (0.00-0.10); Basophils % (A) 0.1 %; Eosinophils # (A) 0.06 X 10*3/uL (0.04-0.35); Eosinophils % (A) 0.7 %; HCT 37.6 % (37.2-46.3); Immature Grans, Automated 0.7 %; Lymphocytes # (A) 2.36 X 10*3/uL (0.90-5.00); Lymphocytes % (A) 26.5 %; MCH 27.9 pg (27.0-32.0); MCHC 29.3 g/dL (32.0-37.0); MCV 95.4 fL (80.0-97.0); Mean Platelet Volume 9.7 fL (9.5-12.2); Monocytes # (A) 0.62 X 10*3/uL (0.20-1.00); NRBC Per 100 WBC 0 /100 WBCS (0.0-0.0); Neutrophils # (A) 5.81 X 10*3/uL (1.80-7.70); Platelet Count 292 X 10*3/uL (140-440); RBC 3.94 X 10*6/uL (4.10-5.20); WBC 8.92 X 10*3/uL (4.50-10.00)
[2021-11-05 09:50] LABS: African American GFR (CKD) 99.5 (60.0-200.0); Albumin 3.3 g/dL (3.8-4.9); Albumin/Globulin Ratio 1.43 (1.60-3.17); Anion Gap 7.2 mmol/L (10.00-18.00); BUN/Creat Ratio 29.8 Ratio (12.00-20.00); Blood Urea Nitrogen 14.9 mg/dL (9.0-27.0); Calcium 8.8 mg/dL (8.7-10.3); Carbon Dioxide 39.8 mmol/L (20.0-27.5); Globulin 2.3 g/dL (1.6-3.3); Non-African American GFR(CKD) 85.8 (60.0-200.0); Potassium 4.4 mmol/L (3.5-5.5); Total Bilirubin 0.2 mg/dL (0.30-1.20); Total Protein 5.6 g/dL (6.2-8.2)
[2021-11-05] MEDS: NON FORMULARY DRUG (Empagliflozin [Jardiance] 10 MG Tablet) PO SCH (10:13)
--- NOTE | 2021-11-05 10:42 | P.PN ---
Subjective Progress Note Date: 11/05/21 Principal diagnosis: Dyspnea related to possible pneumonia and small right-sided pleural effusion This is a 89-year-old female patient who follows with Dr. Aguayo in the pulmonary clinic for history of COPD baseline FEV1 49% predicted on home oxygen at 2 L on a regular basis, atrial fibrillation on [place], chronic diastolic CHF, diabetes mellitus type 2, hypertension, hyperlipidemia, sleep apnea, hypothyroidism, previous ESBL urinary tract infection, former smoker, anxiety and depression. Patient was brought in to the emergency department on 10/29/2021 a family member for evaluation of worsening shortness of breath for the past 3 days. She denied any fever, but reports being chilled, reports increased cough, increased shortness of breath. She has been having diarrhea, on average of twice a day. Denies any nausea vomiting, no abdominal pain. Chest x-ray shows multifocal opacities concerning multifocal airspace opacities, and there was a question of aspiration pneumonia/pneumonitis. EKG showed atrial fibrillation with slightly tachycardic rate of 109 BPM, and evidence of septal myocardial infarction of indeterminate age. Laboratory evaluation showed very mild leukocytosis with white blood cell count of 12.2, hemoglobin of 12, PT/INR within normal limits, CO2 is 42, last electrolytes were unremarkable, B1 is 16 creatinine 0.43, glucose was 274, troponins less than 0.012, proBNP was 790, patient tested negative for influenza A and B, RSV and COVID-19. Patient's poor historian related to a language barrier, patient's daughter is at the bedside, and reports recent history of knee surgery that was done out of state in [place]. Was unsure of what type of surgery, however states it was not a knee replacement surgery. Patient is afebrile, she is currently on 2 L of oxygen pulse ox is 92%, breathing comfortably, does not appear to be any acute distress, denies any chest pain. She was started on empiric antibiotics in the form of azithromycin and Rocephin, home dose Lasix, and this consult was initiated. The patient is seen today 10/31/2021 in follow-up on the regular medical floor. She is currently sitting up at the bedside. Awake and alert in no acute distress. She is maintaining O2 saturations in the 90s on 2 L/m per nasal cannula. She's been afebrile. Hemodynamically stable. Ultrasound of the chest revealed only a 1.9 cm pocket on the right. No fluid documented on the left. No plans for thoracentesis. Blood cultures are pending. White count 9.5. Hemoglobin 11.7. Sodium 143. Potassium 4.1. Chloride is 93. Bicarb 42. BUN 15. Creatinine 0.45. Blood glucose 210. Pro-calcitonin 1.26. She is continue d on ceftriaxone. Remains on oral diuretics. Anticoagulated with Eliquis. The patient is seen today 11/01/2021 in follow-up on the regular medical floor. She is awake and alert in no acute distress. Breathing easier today compared to yesterday. Not quite back to her baseline. Maintaining good O2 saturations in the upper 90s on 2 L/m per nasal cannula. Blood cultures revealed no growth. White count 10.6. Hemoglobin 11.9. Sodium 141. Potassium 4.0. Bicarb 45. BUN 20. Creatinine 0.47. Glucose 195. She remains on ceftriaxone. Anticoagulated with Eliquis. On 11/02/2021 patient seen in follow-up on medical surgical floor. Denies any respiratory distress, breathing comfortably, but she states she is feeling weak. Vital signs have been stable, no fever or chills. No chest pain. No hemoptysis. Follow-up chest x-ray today showing persistent cardiomegaly with mild central vascular congestion and small right greater than left pleural effusions and right lower lung acute infiltrate and/or atelectasis. Patient remains on antibiotics with Rocephin. Vital signs have been stable, 2 L of oxygen her pulse ox is 95%. All cultures have been negative. On 11/04/2021 patient seen in follow-up on medical surgical floor. She is awake and alert, in no acute distress, appears generally weak, but does not appear to be in any respiratory distress, 2 L of oxygen pulse ox is 98%, vital signs have been stable, she's had no fever or chills. Does have exertional dyspnea, no cough, no chest pain. Yesterday's ultrasound of the chest showed 10.5 cm fluid pocket on the right. Computed tomography scan of the chest showed large right- sided pleural effusion with scattered pulmonary atelectasis and complete collapse of the right middle lobe. Blood and sputum cultures have been sent, negative thus far. Patient is completed a course of azithromycin and Rocephin. Continues on oral dose Lasix. No edema in lower extremities. Eliqunoe is on hold for right-sided thoracentesis and bronchoscopy with BAL today. On 11/05/2021 patient seen in follow-up on medical surgical floor. She is awake and alert, in no acute distress, breathing comfortably, she is on 2 L of oxygen with a pulse ox of 94-98%, afebrile, hemodynamically she is stable. Breathing is nonlabored, no worsened dyspnea or cough, no compressive chest discomfort. Patient is status post right-sided thoracentesis however there was no fluid to be removed and patient underwent bronchoscopy with BAL. BAL cultures have been collected and sent from the right middle lobe. Follow-up chest x-ray showed right-sided effusion which was smaller in size, no evidence of right-sided pneumothorax, and there was persistent pulmonary venous congestion and cardiomegaly. BAL cultures are pending. Patient has completed a course of azithromycin and Rocephin. Vital signs have been stable, clinically stable, she was restarted on her home dose of a was 2 and half milligrams twice daily for history of atrial fibrillation, she is on home dose Lasix. Lung sounds are clear. She is tolerating ambulation with assistance. Objective - Vital Signs Vital signs: Vital Signs Temp 97.8 F 11/05/21 04:51 Pulse 80 11/05/21 09:26 Resp 18 11/05/21 09:26 BP 131/83 11/05/21 09:20 Pulse Ox 98 11/05/21 04:51 Intake & Output 11/04/21 11/05/21 11/05/21 18:59 06:59 18:59 Intake Total 300 300 Balance 300 300 Weight 83.915 kg 78 kg Intake: IV 300 Oral 300 Other: Voiding Method Bedside Commode Bedside Commode Bedside Commode Diaper Diaper # Voids 2 3 - Exam GENERAL EXAM: Alert, very pleasant, 89-year-old female in 2 L of oxygen with a pulse ox of 98%, comfortable in no apparent distress. HEAD: Normocephalic/atraumatic. EYES: Normal reaction of pupils, equal size. Conjunctiva pink, sclera white. NOSE: Clear with pink turbinates. THROAT: No erythema or exudates. NECK: No masses, no JVD, no thyroid enlargement, no adenopathy. CHEST: No chest wall deformity. Symmetrical expansion. LUNGS: Equal air entry with no crackles, wheeze, rhonchi or dullness. CVS: Regular rate and rhythm, normal S1 and S2, no gallops, no murmurs, no rubs ABDOMEN: Soft, nontender. No hepatosplenomegaly, normal bowel sounds, no guarding or rigidity. EXTREMITIES: No clubbing, no edema, no cyanosis, 2+ pulses and upper and lower extremities. MUSCULOSKELETAL: Muscle strength and tone normal. SPINE: No scoliosis or deformity SKIN: No rashes CENTRAL NERVOUS SYSTEM: Alert and oriented -3. No focal deficits, tone is normal in all 4 extremities. PSYCHIATRIC: Alert and oriented -3. Appropriate affect. Intact judgment and insight. - Labs CBC & Chem 7: 11/05/21 06:15 11/05/21 06:15 Labs: Abnormal Lab Results - Last 24 Hours (Table) 11/04/21 11/04/21 11/04/21 Range/Units 11:11 16:54 20:03 RBC (4.10-5.20) X 10*6/uL Hgb (12.0-15.0) g/dL MCHC (32.0-37.0) g/dL Immature Gran # (0.00-0.04) X 10*3/uL Chloride (96-109) mmol/L Carbon Dioxide (20.0-27.5) mmol/L Anion Gap (10.00-18.00) mmol/L Creatinine (0.6-1.5) mg/dL BUN/Creatinine Ratio (12.00-20.00) Ratio Glucose (70-110) mg/dL POC Glucose (mg/dL) 173 H 228 H 184 H (75-99) mg/dL Total Bilirubin (0.30-1.20) mg/dL Total Protein (6.2-8.2) g/dL Albumin (3.8-4.9) g/dL Albumin/Globulin Ratio (1.60-3.17) g/dL 11/05/21 11/05/21 11/05/21 Range/Units 06:15 06:15 07:45 RBC 3.94 L (4.10-5.20) X 10*6/uL Hgb 11.0 L (12.0-15.0) g/dL MCHC 29.3 L (32.0-37.0) g/dL Immature Gran # 0.06 H (0.00-0.04) X 10*3/uL Chloride 94 L (96-109) mmol/L Carbon Dioxide 39.8 H (20.0-27.5) mmol/L Anion Gap 7.20 L (10.00-18.00) mmol/L Creatinine 0.5 L (0.6-1.5) mg/dL BUN/Creatinine Ratio 29.80 H (12.00-20.00) Ratio Glucose 183 H (70-110) mg/dL POC Glucose (mg/dL) 195 H (75-99) mg/dL Total Bilirubin 0.20 L (0.30-1.20) mg/dL Total Protein 5.6 L (6.2-8.2) g/dL Albumin 3.3 L (3.8-4.9) g/dL Albumin/Globulin Ratio 1.43 L (1.60-3.17) g/dL Microbiology - Last 24 Hours (Table) 10/30/21 05:50 Blood Culture - Final Blood No Growth after 144 hours 10/29/21 22:29 Blood Culture - Final Blood No Growth after 144 hours 11/02/21 19:40 Gram Stain - Final Sputum Sputum Culture - Final Assessment and Plan Plan: Assessment: #1. Dyspnea related to possibility of pneumonia and small right-sided pleural effusion, possibly community-acquired, COVID-19 PCR, influenza A and B and RSV were negative, patient is status post bronchoscopy with BAL on 11/04/2021, and attempted right-sided thoracentesis however there was no fluid to be removed #2. History of chronic diastolic CHF #3. History of COPD with baseline FEV1 of 49% of predicted with chronic hypoxic respiratory failure on home oxygen at 2 L #4. Recent reported history of left knee surgery, the details are not available to us #5. History of obstructive sleep apnea #6. History of morbid obesity #7. History of diabetes multiple's type II #8. History of degenerative disc disease #9. History of GERD #10. History of hypertension #11. Hyperlipidemia #12. Chronic A. fib on Eliquis #13. Chronic pain #14. History of CVA/TIA Plan: Clinically stable, no worsening dyspnea, lightheadedness stable, no fever or chills Patient has completed 5 day course of azithromycin and Rocephin Eliquis has been resumed Follow-up chest x-ray yesterday showed improved small right pleural effusion We'll obtain follow-up ultrasound of the chest However there is no plans to drain the fluid during this admission, clinically patient is stable She can be considered for discharge home today, no need for antibiotics upon discharge She can continue home dose Lasix She has home oxygen Outpatient follow-up with Dr. Aguayo in the office in 7-10 days I have personally seen and examined the patient, performed the documentation and the assessment and plan as written. Number of minutes spent on the visit: [10] Time with Patient: Less than 30
[2021-11-05 12:01] LABS: Glucose,Whole Blood 157 mg/dL (75-99)
[2021-11-05 12:39] VITALS: BP 137/84; RESP 22
[2021-11-05 15:48] VITALS: PULSE 83
--- NOTE | 2021-11-05 15:48 | US ---
EXAMINATION TYPE: US chest DATE OF EXAM: 11/05/2021 COMPARISON: Radiograph 11/04/2021 CLINICAL HISTORY: 89-year-old female with right pleural effusion TECHNIQUE: Targeted ultrasound of the posterior lower right hemithorax FINDINGS: EXAM MEASUREMENTS: Right Pleural Effusion pocket size: 7.1 cm Right skin surface to fluid distance: 3.6 cm Right side marked for possible thoracentesis outside the dept. Pulmonologists are able to review the images in the patient?s EMR. IMPRESSIONS: [id number] right pleural effusion noted with underlying atelectatic lung.
--- NOTE | 2021-11-05 18:04 | P.DS ---
Providers Date of admission: 10/29/21 20:05 Expected date of discharge: 11/05/21 Attending physician: Kareem Issa Consults: 10/29/21 20:05 Consult Physician Routine Consulting Provider: Ventura Aguayo Consult Reason/Comments: pneumonia, copd Do you want consulting provider notified?: Yes Primary care physician: Martha Ferreira Hospital Course: Diagnosis on discharge: 1. Shortness of breath secondary to pneumonia, R sided pleural effusion 2. History of COPD 3. History of chronic persistent atrial fibrillation maintained on anticoagulat ion 4. History of essential hypertension 5. History of obstructive sleep apnea 6. History of morbid obesity 7. History of degenerative disc disease 8. History of GERD Hospital course: Joyce Davis, is an 89-year-old female patient of Dr. Ferreira who presented with complaints of shortness of breath and coughing for 3 days. Patient reports that she's had increased sputum production. Patient is a poor historian and medical history is difficult to obtain. Patient does have a past medical history according to record of atrial fibrillation, chest pain, heart failure, diabetes mellitus, GERD, hyperlipidemia, hypertension, osteoarthritis, sleep apnea and ESBL in urine. Chest x-ray was completed in ER showing multifocal airspace opacities most pronounced in the lung bases correlate for aspiration pneumonia. White blood cell elevated at 12.2. CO2 42. COVID-19 negative. Influenza negative. Troponin negative. Patient has been started on IV anti biotic Rocephin and Zithromax. Pulmonary services have been consulted. Patient also started on updraft breathing treatments. Current vital signs temp 99.1, heart rate 102, blood pressure 152/77 and pulse ox of 92% on 2 L. Patient is resting comfortably in bed. Patient denies any acute complaints. Patient denies chest pain. Patient denies nausea vomiting or diarrhea. Patient denies any urinary burning or frequency On 10/31/2021 patient was seen and examined on the medical floor she is alert and oriented 3 in no apparent distress she is complaining of cough with sputum production, she is also complaining of shortness of breath with activity and complaining of low back pain, otherwise she denies any complaints at this time there is no fever or chills no headache or dizziness no chest pain no nausea or vomiting no abdominal pain no diarrhea no blood in the stools and no urinary symptoms. Daughter is at bedside and was helping with translating to patient. On 11/01/2021 patient is alert and oriented 3. Patient still having some cough and shortness of breath. Patient Rocephin and by mouth Lasix pulmonary services are following. Current vitals temp 98.3, heart rate 92, blood pressure 156/79 and satting 90% on 2 L. Repeat chest x-ray has been ordered per pulmonary for tomorrow 11/02/2021 On 11/02/2021 patient was seen and examined on the medical floor she is alert and oriented 3 in no apparent distress she is complaining of cough with sputum production, she is also complaining of shortness of breath with activity and complaining of low back pain, otherwise she denies any complaints at this time there is no fever or chills no headache or dizziness no chest pain no nausea or vomiting no abdominal pain no diarrhea no blood in the stools and no urinary symptoms. CT scan of the chest done today, and revealed right sided pleural effusion, pulmonary following. On 11/03/2021 patient was seen and examined on the medical floor she is feeling somewhat better she reports some improvement in the cough and shortness of breath otherwise she denies any complaints there is no fever or chills no headache or dizziness no chest pain no nausea or vomiting no abdominal pain no diarrhea no blood in the stools and no urinary symptoms. At this time we are awaiting thoracentesis by pulmonary. On 11/04/2021 patient is resting comfortably in bed daughter at bedside. Patie nt still having some shortness of breath. Patient to undergo thoracentesis with bronchoscopy today for right sided pleural effusion with pulmonary services. Current vital signs heart rate 98, blood pressure 124/73 with pulses of 98% on 2 L On 11/05/2021 patient was seen and examined on the medical floor she is alert and oriented 3 in no apparent distress, cough and shortness of breath has sign ificantly improved there is no fever or chills no headache or dizziness no chest pain no nausea or vomiting no abdominal pain no diarrhea and no urinary symptoms. Patient was evaluated by pulmonary Dr. Pérez and was cleared for discharge. She will be followed as outpatient by Dr. Aguayo and by her primary care physician Dr. Ferreira Patient Condition at Discharge: Serious Plan - Discharge Summary New Discharge Prescriptions: New Cefdinir 300 mg PO Q12HR 7 Days #14 cap Albuterol Nebulized [Ventolin Nebulized] 2.5 mg INHALATION RT-QID ml Pantoprazole [Protonix] 40 mg PO AC-BRKFST tab Continue Apixaban [Eliquis] 2.5 mg PO BID HYDROcodone/APAP 7.5-325MG [[place] 7.5-325] 1 tab PO Q6H PRN PRN Reason: Pain Multivit-Min/FA/Lycopen/Lutein [Centrum Silver Tablet] 1 tab PO DAILY Magnesium Gluconate [Magonate] 500 mg PO DAILY Meclizine [Antivert] 25 mg PO HS Levothyroxine Sodium [Synthroid] 75 mcg PO DAILY Cholecalciferol [Vitamin D3 (25 Mcg = 1000 Iu)] 25 mcg PO DAILY Memantine [Namenda] 5 mg PO BID Empagliflozin [Jardiance] 10 mg PO DAILY Furosemide [Lasix] 40 mg PO DAILY Famotidine [Pepcid] 20 mg PO BID Diltiazem HCl [Diltiazem HCl 24Hr ER] 240 mg PO DAILY Discharge Medication List Apixaban [Eliquis] 2.5 mg PO BID 02/14/16 [History] HYDROcodone/APAP 7.5-325MG [[place] 7.5-325] 1 tab PO Q6H PRN 02/18/20 [History] Multivit-Min/FA/Lycopen/Lutein [Centrum Silver Tablet] 1 tab PO DAILY 03/08/20 [History] Magnesium Gluconate [Magonate] 500 mg PO DAILY 08/04/20 [History] Meclizine [Antivert] 25 mg PO HS 08/04/20 [History] Cholecalciferol [Vitamin D3 (25 Mcg = 1000 Iu)] 25 mcg PO DAILY 10/29/21 [History] Diltiazem HCl [Diltiazem HCl 24Hr ER] 240 mg PO DAILY 10/29/21 [History] Empagliflozin [Jardiance] 10 mg PO DAILY 10/29/21 [History] Famotidine [Pepcid] 20 mg PO BID 10/29/21 [History] Furosemide [Lasix] 40 mg PO DAILY 10/29/21 [History] Levothyroxine Sodium [Synthroid] 75 mcg PO DAILY 10/29/21 [History] Memantine [Namenda] 5 mg PO BID 10/29/21 [History] Albuterol Nebulized [Ventolin Nebulized] 2.5 mg INHALATION RT-QID ml 11/05/21 [Rx] Cefdinir 300 mg PO Q12HR 7 Days #14 cap 11/05/21 [Rx] Pantoprazole [Protonix] 40 mg PO AC-BRKFST tab 11/05/21 [Rx] Follow up Appointment(s)/Referral(s): Martha Ferreira MD [Primary Care Provider] - 11/12/21 11:15 am Ventura Aguayo MD [STAFF PHYSICIAN] - 11/19/21 10:30 am Patient Instructions/Handouts: Heart Failure (DC), Type 2 Diabetes in Adults: New Diagnosis (GEN) Discharge Disposition: HOME SELF-CARE
== END 2021-11-05 16:30 | disposition home or self-care (01) | DRG 194 ==
LOC: EC 18:37 → 5NMEDONC 20:05
PROVIDERS: ADMIT Internal Medicine; ATTEND Internal Medicine
PROC: 0B9D8ZX Drainage of Right Middle Lung Lobe, Via Natural or Artificial Opening Endoscopic, Diagnostic (ICD-10-PCS; 2021-11-04)
PROC: 0W993ZZ Drainage of Right Pleural Cavity, Percutaneous Approach (ICD-10-PCS; principal; 2021-11-04 12:00)
DX: J18.9 Pneumonia, unspecified organism (principal); I50.32 Chronic diastolic (congestive) heart failure; I48.19 Other persistent atrial fibrillation; J96.11 Chronic respiratory failure with hypoxia; J90 Pleural effusion, not elsewhere classified; J44.0 Chronic obstructive pulmonary disease with (acute) lower respiratory infection; I11.0 Hypertensive heart disease with heart failure; Z20.822 Contact with and (suspected) exposure to COVID-19; E03.9 Hypothyroidism, unspecified; E11.9 Type 2 diabetes mellitus without complications; G47.33 Obstructive sleep apnea (adult) (pediatric); E78.5 Hyperlipidemia, unspecified; F32.A Depression, unspecified; F41.9 Anxiety disorder, unspecified; G89.29 Other chronic pain; K21.9 Gastro-esophageal reflux disease without esophagitis; M19.90 Unspecified osteoarthritis, unspecified site; E66.01 Morbid (severe) obesity due to excess calories; J44.9 Chronic obstructive pulmonary disease, unspecified; Z96.652 Presence of left artificial knee joint; Z68.32 Body mass index [BMI] 32.0-32.9, adult; I25.2 Old myocardial infarction; Z79.890 Hormone replacement therapy; Z79.84 Long term (current) use of oral hypoglycemic drugs; Z79.01 Long term (current) use of anticoagulants; Z79.899 Other long term (current) drug therapy; Z87.440 Personal history of urinary (tract) infections; Z87.891 Personal history of nicotine dependence; Z86.73 Personal history of transient ischemic attack (TIA), and cerebral infarction without residual deficits; Z98.42 Cataract extraction status, left eye; Z98.41 Cataract extraction status, right eye; Z99.81 Dependence on supplemental oxygen; Z88.6 Allergy status to analgesic agent; Z90.710 Acquired absence of both cervix and uterus; Z90.49 Acquired absence of other specified parts of digestive tract; Z82.49 Family history of ischemic heart disease and other diseases of the circulatory system; Z82.5 Family history of asthma and other chronic lower respiratory diseases; Z83.3 Family history of diabetes mellitus
CPT/HCPCS: 31624; 36415; 71045; 71046; 71260; 76604; 80048; 80053; 83036; 83735; 83880; 84145; 84484; 85025; 85610; 85730; 87040; 87070; 87205; 87636; 88108; 88305; 89050; 93005; 94640; 94760; 96365; 96366; 96375; 99285

== ENCOUNTER 2022-04-26 11:55 | Emergency (ER) | payer MEDICARE, OTHER ==
[2022-04-26 12:07] VITALS: BP 125/73; PULSE 103; RESP 18; TEMP 97.7
[2022-04-26] MEDS ORDERED: HYDROmorphone 0.5 MG/0.5 ML SYRINGE IVP STA (13:48)
--- NOTE | 2022-04-26 13:53 | ED ---
General Adult HPI - General Chief complaint: Headache Stated complaint: jaw, neck & back pain Time Seen by Provider: 04/26/22 13:25 Source: patient, family, RN notes reviewed, old records reviewed Mode of arrival: wheelchair - History of Present Illness Initial comments: This is an 89-year-old female presents emergency Department complaining of chronic back pain that radiates down her leg. Patient states she had an accident long time ago and that is been hurting ever since. Patient states she has no chest pain or difficulty breathing or shortness of breath. Patient state s the pain in her neck radiates the base of her skull patient denies any numbness weakness. Patient denies any nausea vomiting. Patient denies any fever chills or cough. Patient denies any abdominal pain. Patient's daughter states she has had long-standing chronic pain but has not requested to see anybody else when she visits her primary medical care doctor. - Related Data Home Medications Medication Instructions Recorded Confirmed Apixaban [Eliquis] 2.5 mg PO BID 02/14/16 10/29/21 HYDROcodone/APAP 7.5-325MG [[place] 1 tab PO Q6H PRN 02/18/20 10/29/21 7.5-325] Multivit-Min/FA/Lycopen/Lutein 1 tab PO DAILY 03/08/20 10/29/21 [Centrum Silver Tablet] Magnesium Gluconate [Magonate] 500 mg PO DAILY 08/04/20 10/29/21 Meclizine [Antivert] 25 mg PO HS 08/04/20 10/29/21 Cholecalciferol [Vitamin D3 (25 25 mcg PO DAILY 10/29/21 10/29/21 Mcg = 1000 Iu)] Empagliflozin [Jardiance] 10 mg PO DAILY 10/29/21 10/29/21 Famotidine [Pepcid] 20 mg PO BID 10/29/21 10/29/21 Furosemide [Lasix] 40 mg PO DAILY 10/29/21 10/29/21 Levothyroxine Sodium [Synthroid] 75 mcg PO DAILY 10/29/21 10/29/21 Memantine [Namenda] 5 mg PO BID 10/29/21 10/29/21 dilTIAZem HCL [dilTIAZem HCL 24Hr 240 mg PO DAILY 10/29/21 10/29/21 ER] Previous Rx's Medication Instructions Recorded Albuterol Nebulized [Ventolin 2.5 mg INHALATION RT-QID ml 11/05/21 Nebulized] Cefdinir 300 mg PO Q12HR 7 Days #14 cap 11/05/21 Pantoprazole [Protonix] 40 mg PO AC-BRKFST tab 11/05/21 predniSONE [Deltasone] 40 mg PO DAILY #8 tab 04/26/22 Allergies Allergy/AdvReac Type Severity Reaction Status Date / Time aspirin AdvReac Dyspnea,Nausea/Vomiting,Dizzy,Tingling,Warm Verified 04/26/22 12:07 sensation Review of Systems ROS Statement: Those systems with pertinent positive or pertinent negative responses have been documented in the HPI. ROS Other: All systems not noted in ROS Statement are negative. Past Medical History Past Medical History: Atrial Fibrillation, Chest Pain / Angina, Heart Failure, Diabetes Mellitus, GERD/Reflux, Hyperlipidemia, Hypertension, Osteoarthritis (OA), Respiratory Disorder, Sleep Apnea/CPAP/BIPAP, Thyroid Disorder Additional Past Medical History / Comment(s): DDD WITH BACK PAIN, OCCASIONAL SWELLING IN FEET, USES C-PAP MACHINE. Pt wears o2 2l all the time History of Any Multi-Drug Resistant Organisms: ESBL Date of last positivie culture/infection: 09/22/20 ESBL Klebsiella MDRO Source:: Urine Past Surgical History: Cholecystectomy, Hysterectomy, Joint Replacement Additional Past Surgical History / Comment(s): EGD for gastric reflux. Excision of lipomas. bilateral cataracts, left total knee., Pain clinic procedures. Past Anesthesia/Blood Transfusion Reactions: No Reported Reaction Past Psychological History: Anxiety, Depression Smoking Status: Former smoker Past Alcohol Use History: None Reported Past Drug Use History: None Reported - Past Family History Brother(s) Family Medical History: Congestive Heart Failure (CHF), COPD, Coronary Artery Disease (CAD), Diabetes Mellitus Daughter(s) Additional Family Medical History / Comment(s): One from MVA Son(s) Family Medical History: Diabetes Mellitus, Hyperlipidemia, Hypertension Sister(s) Family Medical History: Cancer Mother Family Medical History: Dementia Father Family Medical History: COPD Additional Family Medical History / Comment(s): EMPHYSEMA. General Exam - General Exam Comments Initial Comments: GENERAL: Patient is well-developed and well-nourished. Patient is nontoxic and well- hydrated and is in mild distress. ENT: Neck is soft and supple. No significant lymphadenopathy is noted. Oropharynx is clear. Moist mucous membranes. Patient's trapezius muscle is tender to palpation on the left. EYES: The sclera were anicteric and conjunctiva were pink and moist. Extraocular mo vements were intact and pupils were equal round and reactive to light. Eyelids were unremarkable. PULMONARY: Unlabored respirations. Good breath sounds bilaterally. No audible rales rhonchi or wheezing was noted. CARDIOVASCULAR: There is a regular rate and rhythm without any murmurs gallops or rubs. ABDOMEN: Soft and nontender with normal bowel sounds. SKIN: Skin is clear with no lesions or rashes and otherwise unremarkable. NEUROLOGIC: Patient is alert and oriented x3. Cranial nerves II through XII are grossly intact. Motor and sensory are also intact. Normal speech, volume and content. Symmetrical smile. Patient has a negative straight leg test bilaterally. I lifted the patient's legs greater than 60. MUSCULOSKELETAL: Normal extremities with adequate strength and full range of motion. No lower extremity swelling or edema. No calf tenderness. LYMPHATICS: No significant lymphadenopathy is noted PSYCHIATRIC: Normal psychiatric evaluation. Course Vital Signs 04/26/22 11:57 Temperature 97.7 F Pulse Rate 103 H Respiratory 18 Rate Blood Pressure 125/73 O2 Sat by Pulse 90 L Oximetry Medical Decision Making - Medical Decision Making EKG was interpreted by me. EKG shows atrial fibrillation at 82 bpm QRS is 97 Q- T intervals 388 QTC is 427. Patient's EKG shows no ST segment elevation CT was interpreted by me. CT of the brain shows no acute abnormality. No signs of bleed or mass effect. CT was interpreted by me. CT of the C-spine showed some mild spinal stenosis as well as degenerative disc disease. X-ray of the lumbosacral spine was interpreted by me. X-ray showed degenerative disc disease with facet arthropathy new. Patient received Dilaudid emergency department was feeling little better. Disposition Clinical Impression: Spinal stenosis, Degenerative disc disease, Sciatica Disposition: HOME SELF-CARE Condition: Good Instructions (If sedation given, give patient instructions): Sciatica (ED), Degenerative Disc Disease (ED) Prescriptions: predniSONE [Deltasone] 40 mg PO DAILY #8 tab Is patient prescribed a controlled substance at d/c from ED?: No Referrals: Martha Ferreira MD [Primary Care Provider] - 1-2 days Time of Disposition: 17:00
--- NOTE | 2022-04-26 15:11 | XR ---
EXAMINATION TYPE: XR lumbosacral spine 5 views DATE OF EXAM: 04/26/2022 Comparison: 07/20/2018 Clinical History: 89-year-old female pain, Radicular pain Findings: Cholecystectomy clips. Degenerated disc levoconvex curvature centered on the thoracic lumbar junction . Osteopenia. Multiple pelvic phleboliths. Moderate to advanced disc/endplate degenerative change thr oughout. There is bulky endplate spondylosis with dictation the lower thoracic and upper lumbar spine . Grade 1 retrolisthesis L1-L2. Baastrup's disease throughout the lumbar spine. Vertebral body height s are preserved. Impression: 1. Hypertrophic facet arthropathy throughout. Degenerative grade 1 retrolisthesis L1-L2. Moderate to advanced degenerative disc disease throughout. 2. 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 3. Baastrup's disease. 4. Osteopenia. No vertebral compression collapse.
--- NOTE | 2022-04-26 16:40 | CT ---
EXAMINATION TYPE: CT brain otoniel wo con DATE OF EXAM: 04/26/2022 COMPARISON: 07/11/2020 HISTORY: Fall, jaw, neck and back pain CT DLP: 1562.0 mGycm, Automated exposure control for dose reduction was used. CONTRAST: Patient injected with 0 mL of Isovue 300. CT of the brain is performed utilizing 3 mm thick sections through the posterior fossa and 3 mm thick sections through the remaining calvarium. Study is performed within 24 hours of arrival to the hospital. No abnormal hyperdensity is present to suggest an acute intracranial hemorrhage. There is some vague hypodensity within the anterior right basal ganglion. Small lacunar infarct at th is level could be considered. This may be a change. Consider follow-up with MRI. No mass lesion is evident. Some physiologic basal ganglion calcifications present on the left. Minima l periventricular white matter hypodensity may be present, likely on the basis of chronic white matte r ischemic changes. Ventricles and sulci are appropriate for the patient age. Paranasal sinuses and mastoid air cells within the [id number] are clear. Some hyperostosis frontal is internus is present, normal variant. IMPRESSIONS: 1. There may be a lacunar infarct within the right basal ganglion of indeterminate age. Consider foll ow-up MRI for additional evaluation. CT cervical spine. COMPARISON: None CT of the cervical spine is performed in the axial plane at 2 mm thick sections. Reconstructed image s in the coronal, and sagittal plane are reviewed on the computer. No acute fractures are evident. Vertebral body alignment is normal. C3-4: There is loss of disc height and uncovertebral joint hypertrophy present at C3-4. This endplate spurring has some moderate to severe anterior thecal sac compression and moderate left and severe ri ght foraminal stenosis. Endplate spurring may attribute to spinal canal stenosis of 0.7 cm. C4-5: There is loss of disc height at this level. Uncovertebral joint hypertrophy contributes to mild bilateral foraminal stenosis. C5-C6: Uncovertebral joint hypertrophy contributes to severe bilateral foraminal stenosis. Some endpl ate spurring is at least moderate anterior thecal sac compression. Spinal canal stenosis is not ident ified C6-7: Uncovertebral joint hypertrophy contributes to bilateral severe foraminal stenosis. There is lo ss of disc height at this level. Vertebral body heights are preserved. No spinal canal stenosis is evident. No neural foraminal stenosis is evident. Some mild pleural thickening may be along the posterior left apex of the lung field IMPRESSIONS: 1. Degenerative disc changes and uncovertebral joint hypertrophy and endplate spurring. Spinal canal stenosis may be present at C3-4. Consider follow-up with MRI.
[2022-04-26] MEDS ORDERED: ACET/COD 300 MG/30 MG STARTER PACK 6 TAB BTL PO STA (17:07)
== END 2022-04-26 17:10 | disposition home or self-care (01) ==
LOC: EC 11:55
DX: K83.1 Obstruction of bile duct (principal); M51.37 Other intervertebral disc degeneration, lumbosacral region; M54.30 Sciatica, unspecified side; I48.91 Unspecified atrial fibrillation; I11.0 Hypertensive heart disease with heart failure; I50.9 Heart failure, unspecified; E11.9 Type 2 diabetes mellitus without complications; K21.9 Gastro-esophageal reflux disease without esophagitis; E78.5 Hyperlipidemia, unspecified; G47.30 Sleep apnea, unspecified; M19.90 Unspecified osteoarthritis, unspecified site; E07.9 Disorder of thyroid, unspecified; Z79.899 Other long term (current) drug therapy; Z88.6 Allergy status to analgesic agent; Z87.891 Personal history of nicotine dependence
CPT/HCPCS: 93005; 72110; 72125; 70450; 99284; 96374; J1170

== ENCOUNTER 2022-05-16 22:29 | Inpatient (IN) | payer MEDICARE, OTHER ==
--- NOTE | 2022-05-16 22:44 | ED ---
General Adult HPI - General Chief complaint: Shortness of Breath Stated complaint: sob Time Seen by Provider: 05/16/22 22:37 Source: patient Mode of arrival: EMS Limitations: no limitations - History of Present Illness Initial comments: This is an 89-year-old female with an extensive past medical history including COPD, CHF, atrial fibrillation presents emergency department via EMS for difficulty in breathing his service of breath. The patient reported that she had increasing shortness of breath the last 3 days, worsening today. The patient reported a productive cough and didn't think that it was related to her pneumonia. EMS did give the patient 125 mg Cytomel jaw as well as a DuoNeb with some mild improvement. The patient did not complain of any fevers or chills but stated that the difficulty in breathing was worse at night. The patient denied any other acute pain and points at this time. The patient was on her home dose of 2 L of nasal cannula oxygen. - Related Data Home Medications Medication Instructions Recorded Confirmed Apixaban [Eliquis] 2.5 mg PO BID 02/14/16 10/29/21 HYDROcodone/APAP 7.5-325MG [[place] 1 tab PO Q6H PRN 02/18/20 10/29/21 7.5-325] Multivit-Min/FA/Lycopen/Lutein 1 tab PO DAILY 03/08/20 10/29/21 [Centrum Silver Tablet] Magnesium Gluconate [Magonate] 500 mg PO DAILY 08/04/20 10/29/21 Meclizine [Antivert] 25 mg PO HS 08/04/20 10/29/21 Cholecalciferol [Vitamin D3 (25 25 mcg PO DAILY 10/29/21 10/29/21 Mcg = 1000 Iu)] Empagliflozin [Jardiance] 10 mg PO DAILY 10/29/21 10/29/21 Famotidine [Pepcid] 20 mg PO BID 10/29/21 10/29/21 Furosemide [Lasix] 40 mg PO DAILY 10/29/21 10/29/21 Levothyroxine Sodium [Synthroid] 75 mcg PO DAILY 10/29/21 10/29/21 Memantine [Namenda] 5 mg PO BID 10/29/21 10/29/21 dilTIAZem HCL [dilTIAZem HCL 24Hr 240 mg PO DAILY 10/29/21 10/29/21 ER] Previous Rx's Medication Instructions Recorded Albuterol Nebulized [Ventolin 2.5 mg INHALATION RT-QID ml 11/05/21 Nebulized] Cefdinir 300 mg PO Q12HR 7 Days #14 cap 11/05/21 Pantoprazole [Protonix] 40 mg PO AC-BRKFST tab 11/05/21 predniSONE [Deltasone] 40 mg PO DAILY #8 tab 04/26/22 Allergies Allergy/AdvReac Type Severity Reaction Status Date / Time aspirin AdvReac Dyspnea,Nausea/Vomiting,Dizzy,Tingling,Warm Verified 04/26/22 12:07 sensation Review of Systems ROS Statement: Those systems with pertinent positive or pertinent negative responses have been documented in the HPI. ROS Other: All systems not noted in ROS Statement are negative. Past Medical History Past Medical History: Atrial Fibrillation, Chest Pain / Angina, Heart Failure, Diabetes Mellitus, GERD/Reflux, Hyperlipidemia, Hypertension, Osteoarthritis (OA), Respiratory Disorder, Sleep Apnea/CPAP/BIPAP, Thyroid Disorder Additional Past Medical History / Comment(s): DDD WITH BACK PAIN, OCCASIONAL SWELLING IN FEET, USES C-PAP MACHINE. Pt wears o2 2l all the time History of Any Multi-Drug Resistant Organisms: ESBL Date of last positivie culture/infection: 09/22/20 ESBL Klebsiella MDRO Source:: Urine Past Surgical History: Cholecystectomy, Hysterectomy, Joint Replacement Additional Past Surgical History / Comment(s): EGD for gastric reflux. Excision of lipomas. bilateral cataracts, left total knee., Pain clinic procedures. Past Anesthesia/Blood Transfusion Reactions: No Reported Reaction Past Psychological History: Anxiety, Depression Smoking Status: Former smoker Past Alcohol Use History: None Reported Past Drug Use History: None Reported - Past Family History Brother(s) Family Medical History: Congestive Heart Failure (CHF), COPD, Coronary Artery Di sease (CAD), Diabetes Mellitus Daughter(s) Additional Family Medical History / Comment(s): One from MVA Son(s) Family Medical History: Diabetes Mellitus, Hyperlipidemia, Hypertension Sister(s) Family Medical History: Cancer Mother Family Medical History: Dementia Father Family Medical History: COPD Additional Family Medical History / Comment(s): EMPHYSEMA. General Exam Limitations: no limitations General appearance: alert, in no apparent distress Head exam: Present: atraumatic, normocephalic Eye exam: Present: normal appearance, PERRL Pupils: Present: normal accommodation ENT exam: Present: normal exam, normal oropharynx, mucous membranes moist Neck exam: Present: normal inspection Respiratory exam: Present: decreased breath sounds, other. Absent: respiratory distress, wheezes Cardiovascular Exam: Present: regular rate, normal rhythm, normal heart sounds GI/Abdominal exam: Present: soft, tenderness (Minor epigastric tenderness noted) Extremities exam: Present: normal inspection, full ROM Back exam: Present: normal inspection, full ROM Neurological exam: Present: alert, oriented X3, CN II-XII intact Psychiatric exam: Present: normal affect, normal mood Skin exam: Present: warm, dry Course Vital Signs 05/16/22 22:30 Pulse Rate 82 Respiratory 16 Rate Blood Pressure 120/92 O2 Sat by Pulse 96 Oximetry EKG Findings - EKG Comments: EKG Findings:: An EKG was obtained and read by myself. EKG showed a rate of 69, QRS duration of 79, QTC of 425. This EKG showed atrial fibrillation without any ST segment elevations or depressions noted. The patient does have a history of A. fib. Medical Decision Making - Medical Decision Making The patient was seen and evaluated numerous department. Physical exam, the patient was resting in bed without any acute respiratory distress noted. Vital signs were stable. The patient had improvement of her respiratory status secondary to the EMS crew administering Cipro Medrol and a breathing treatment. Due to the nature the patient's complaints however, laboratory workup was obtained as was an EKG and chest x-ray. Laboratory workup was largely within normal limits. Chest x-ray was read by myself and showed a concern for right- sided pneumonia. A radiologist didn't read this x-ray as interstitial pulmonary for about acute changes without any consolidation. It did not show any obvious heart failure. In the setting of the patient's clinical picture with increasing productive cough and shortness of breath and in the setting of COPD as a past medical history, the patient will be treated for pneumonia at this time. The patient was given azithromycin and Rocephin and will be admitted. The patient's primary care physician, Dr. Ferreira, is covered by [facility] and Lala rGace did accept the admission for the group. The patient and her family were told of this plan and were agreeable. The patient was admitted in stable condition. - Lab Data Result diagrams: 05/16/22 22:43 05/16/22 22:43 Lab Results 05/16/22 05/16/22 05/16/22 Range/Units 22:43 22:43 22:43 WBC 6.2 (3.8-10.6) k/uL RBC 4.54 (3.80-5.40) m/uL Hgb 12.8 (11.4-16.0) gm/dL Hct 40.0 (34.0-46.0) % MCV 88.1 (80.0-100.0) fL MCH 28.2 (25.0-35.0) pg MCHC 32.0 (31.0-37.0) g/dL RDW 13.8 (11.5-15.5) % Plt Count 177 (150-450) k/uL MPV 8.6 Neutrophils % 49 % Lymphocytes % 40 % Monocytes % 6 % Eosinophils % 0 % Basophils % 1 % Neutrophils # 3.1 (1.3-7.7) k/uL Lymphocytes # 2.5 (1.0-4.8) k/uL Monocytes # 0.4 (0-1.0) k/uL Eosinophils # 0.0 (0-0.7) k/uL Basophils # 0.1 (0-0.2) k/uL Hypochromasia Slight D-Dimer 0.51 (<0.60) mg/L FEU Sodium 136 L (137-145) mmol/L Potassium 4.3 (3.5-5.1) mmol/L Chloride 93 L (98-107) mmol/L Carbon Dioxide 35 H (22-30) mmol/L Anion Gap 8 mmol/L BUN 19 H (7-17) mg/dL Creatinine 0.68 (0.52-1.04) mg/dL Est GFR (CKD-EPI)AfAm 90 (>60 ml/min/1.73 sqM) Est GFR (CKD-EPI)NonAf 78 (>60 ml/min/1.73 sqM) Glucose 133 H (74-99) mg/dL Calcium 8.5 (8.4-10.2) mg/dL Magnesium 2.4 H (1.6-2.3) mg/dL Total Bilirubin 0.6 (0.2-1.3) mg/dL AST 38 H (14-36) U/L ALT 17 (4-34) U/L Alkaline Phosphatase 57 (38-126) U/L Troponin I (0.000-0.034) ng/mL NT-Pro-B Natriuret Pep pg/mL Total Protein 6.8 (6.3-8.2) g/dL Albumin 4.2 (3.5-5.0) g/dL 05/16/22 05/16/22 Range/Units 22:43 22:43 WBC (3.8-10.6) k/uL RBC (3.80-5.40) m/uL Hgb (11.4-16.0) gm/dL Hct (34.0-46.0) % MCV (80.0-100.0) fL MCH (25.0-35.0) pg MCHC (31.0-37.0) g/dL RDW (11.5-15.5) % Plt Count (150-450) k/uL MPV Neutrophils % % Lymphocytes % % Monocytes % % Eosinophils % % Basophils % % Neutrophils # (1.3-7.7) k/uL Lymphocytes # (1.0-4.8) k/uL Monocytes # (0-1.0) k/uL Eosinophils # (0-0.7) k/uL Basophils # (0-0.2) k/uL Hypochromasia D-Dimer (<0.60) mg/L FEU Sodium (137-145) mmol/L Potassium (3.5-5.1) mmol/L Chloride (98-107) mmol/L Carbon Dioxide (22-30) mmol/L Anion Gap mmol/L BUN (7-17) mg/dL Creatinine (0.52-1.04) mg/dL Est GFR (CKD-EPI)AfAm (>60 ml/min/1.73 sqM) Est GFR (CKD-EPI)NonAf (>60 ml/min/1.73 sqM) Glucose (74-99) mg/dL Calcium (8.4-10.2) mg/dL Magnesium (1.6-2.3) mg/dL Total Bilirubin (0.2-1.3) mg/dL AST (14-36) U/L ALT (4-34) U/L Alkaline Phosphatase (38-126) U/L Troponin I <0.012 (0.000-0.034) ng/mL NT-Pro-B Natriuret Pep 466 pg/mL Total Protein (6.3-8.2) g/dL Albumin (3.5-5.0) g/dL Disposition Clinical Impression: Pneumonia, Acute exacerbation of chronic obstructive pulmonary disease Disposition: ADMITTED IP TO THIS HOSP Condition: Stable Is patient prescribed a controlled substance at d/c from ED?: No Referrals: Martha Ferreira MD [Primary Care Provider] - 1-2 days Time of Disposition: 00:05 Decision Date: 05/17/22 Decision Time: 00:05
[2022-05-16 23:31] LABS: Basophils # (A) 0.1 k/uL (0-0.2); Basophils % (A) 1 %; Eosinophils % (A) 0 %; HGB 12.8 gm/dL (11.4-16.0); Hypochromasia Slight; Lymphocytes # (A) 2.5 k/uL (1.0-4.8); Lymphocytes % (A) 40 %; MCH 28.2 pg (25.0-35.0); MCV 88.1 fL (80.0-100.0); Mean Platelet Volume 8.6; Monocytes # (A) 0.4 k/uL (0-1.0); Monocytes % (A) 6 %; Neutrophils # (A) 3.1 k/uL (1.3-7.7); Neutrophils % (A) 49 %; Platelet Count 177 k/uL (150-450); RBC 4.54 m/uL (3.80-5.40); RDW 13.8 % (11.5-15.5); WBC 6.2 k/uL (3.8-10.6)
[2022-05-16 23:39] LABS: Albumin 4.2 g/dL (3.5-5.0); Calcium 8.5 mg/dL (8.4-10.2); Magnesium 2.4 mg/dL (1.6-2.3); Total Bilirubin 0.6 mg/dL (0.2-1.3); Total Protein 6.8 g/dL (6.3-8.2)
[2022-05-16 23:54] LABS: Potassium 4.3 mmol/L (3.5-5.1)
[2022-05-16] MEDS ORDERED: AZITHROMYCIN 500 MG in SODIUM CHLORIDE 0.9% 250 ML IVPB STA (23:55)
--- NOTE | 2022-05-16 23:56 | XR ---
EXAMINATION TYPE: XR chest 2V DATE OF EXAM: 05/16/2022 COMPARISON: 11/04/2021 HISTORY: Short of breath TECHNIQUE: FINDINGS: There is coarse interstitial density in the lungs. No definite pleural effusion. There are chest leads. Bony thorax shows some mild anterior wedging of mid thoracic vertebra. No evidence of a pneumothorax. IMPRESSION: Interstitial Pulmonary fibrotic changes. No pulmonary consolidation. Inspiration slightl y improved compared to old exam. No obvious heart failure.
[2022-05-17] MEDS ORDERED: NALOXONE 0.4 MG/ML 1 ML VIAL IV PRN (00:11)
[2022-05-17] MEDS: SODIUM CHLORIDE 0.9% 1,000 ML IV SCH ×2 (02:51→12:41)
[2022-05-17] MEDS ORDERED: LORazepam 2 MG/ML INJ IV STA (03:36)
[2022-05-17] MEDS ORDERED: MECLIZINE 25 MG TAB PO PRN (11:44)
[2022-05-17] MEDS: APIXABAN 2.5 MG TABLET PO SCH ×2 (12:41→20:15)
[2022-05-17] MEDS: FUROSEMIDE 40 MG TAB PO SCH (12:42)
[2022-05-17] MEDS: MEMANTINE 5 MG TAB PO SCH ×2 (12:42→20:15)
[2022-05-17] MEDS: PANTOPRAZOLE 40 MG TABLET PO SCH (12:42)
[2022-05-17] MEDS: MULTIVITAMINS, THERA 1 EACH TAB PO SCH (12:42)
[2022-05-17] MEDS: DILTIAZEM CD 240 MG CAP.ER.24H PO SCH (17:26)
[2022-05-17] MEDS: LEVOTHYROXINE 75 MCG TAB PO SCH (17:26)
[2022-05-17] MEDS: DAPAGLIFLOZIN PROPANEDIOL 5 MG TABLET PO SCH (17:26)
[2022-05-17] MEDS: HYDROcodone/APAP 7.5-325MG 1 EACH TAB PO PRN (17:29)
--- NOTE | 2022-05-17 18:43 | P.HPIM ---
History of Present Illness H&P Date: 05/17/22 Joyce Davis, is an 89-year-old female who presented to [facility] emergency room with a chief complaint of worsening shortness of breath She was evaluated in the emergency room vital examination on presentation revealed a temperature of 98.8 pulse 82 respiration 16 blood pressure 120/92 pulse ox 96% on 2 L nasal cannula Laboratory data revealed a white blood count of 6.2 hemoglobin 12.8 platelet count 177 sodium 136 potassium 4.3 chloride 93 CO2 35 BUN 19 creatinine 0.68 tro ponin level less than 0.012 Testing in the emergency room revealed chest x-ray done in the emergency room revealed interstitial pulmonary fibrotic changes, EKG done in the emergency room revealed atrial fibrillation Patient was admitted to medical floor for further evaluation and treatment. Past Medical History Past Medical History: Atrial Fibrillation, Chest Pain / Angina, Heart Failure, Diabetes Mellitus, GERD/Reflux, Hyperlipidemia, Hypertension, Osteoarthritis (OA), Respiratory Disorder, Sleep Apnea/CPAP/BIPAP, Thyroid Disorder Additional Past Medical History / Comment(s): DDD WITH BACK PAIN, OCCASIONAL SWELLING IN FEET, USES C-PAP MACHINE. Pt wears o2 2l all the time History of Any Multi-Drug Resistant Organisms: ESBL Date of last positivie culture/infection: 09/22/20 ESBL Klebsiella MDRO Source:: Urine Past Surgical History: Cholecystectomy, Hysterectomy, Joint Replacement Additional Past Surgical History / Comment(s): EGD for gastric reflux. Excision of lipomas. bilateral cataracts, left total knee., Pain clinic procedures. Past Anesthesia/Blood Transfusion Reactions: No Reported Reaction Past Psychological History: Anxiety, Depression Smoking Status: Former smoker Past Alcohol Use History: None Reported Past Drug Use History: None Reported - Past Family History Brother(s) Family Medical History: Congestive Heart Failure (CHF), COPD, Coronary Artery Disease (CAD), Diabetes Mellitus Daughter(s) Additional Family Medical History / Comment(s): One from MVA Son(s) Family Medical History: Diabetes Mellitus, Hyperlipidemia, Hypertension Sister(s) Family Medical History: Cancer Mother Family Medical History: Dementia Father Family Medical History: COPD Additional Family Medical History / Comment(s): EMPHYSEMA. Medications and Allergies Home Medications Medication Instructions Recorded Confirmed Type Apixaban [Eliquis] 2.5 mg PO BID 02/14/16 05/17/22 History HYDROcodone/APAP 7.5-325MG [[place] 1 tab PO Q6H PRN 02/18/20 05/17/22 History 7.5-325] Multivit-Min/FA/Lycopen/Lutein 1 tab PO DAILY 03/08/20 05/17/22 History [Centrum Silver Tablet] Meclizine [Antivert] 25 mg PO TID PRN 08/04/20 05/17/22 History Empagliflozin [Jardiance] 10 mg PO DAILY 10/29/21 05/17/22 History Furosemide [Lasix] 40 mg PO DAILY 10/29/21 05/17/22 History Levothyroxine Sodium [Synthroid] 75 mcg PO DAILY 10/29/21 05/17/22 History Memantine [Namenda] 5 mg PO BID 10/29/21 05/17/22 History dilTIAZem HCL [dilTIAZem HCL 24Hr 240 mg PO DAILY 10/29/21 05/17/22 History ER] Pantoprazole [Protonix] 40 mg PO AC-BRKFST tab 11/05/21 05/17/22 Rx Sulfamethoxazole/Trimethoprim 1 tab PO BID 05/17/22 05/17/22 History [Bactrim DS 800-160 mg] Allergies Allergy/AdvReac Type Severity Reaction Status Date / Time aspirin AdvReac Dyspnea,Nausea/Vomiting,Dizzy,Tingling,Warm Verified 05/17/22 09:14 sensation Physical Exam Vitals: Vital Signs Temp Pulse Resp BP Pulse Ox 05/17/22 07:30 98.8 F 100 22 123/92 94 L 05/16/22 22:30 82 16 120/92 96 Intake and Output 05/16/22 05/17/22 05/17/22 22:59 06:59 14:59 Other: Weight 75.75 kg In general patient is alert and oriented x 3 in no distress HEENT head normocephalic and atraumatic Neck is supple no JVD no goiter no lymphadenopathy no carotid bruit Chest examination reveals a scattered crackles bilaterally no wheezing Cardiac exam reveals regular heart sounds S1 and S2 no gallops no murmurs Abdomen is soft nontender no organomegaly with normal bowel sounds Extremity exam reveals no edema no cyanosis or clubbing Neurological examination reveals no gross focal deficits Results CBC & Chem 7: 05/16/22 22:43 05/16/22 22:43 Labs: Abnormal Lab Results - Last 24 Hours (Table) 05/16/22 Range/Units 22:43 Sodium 136 L (137-145) mmol/L Chloride 93 L (98-107) mmol/L Carbon Dioxide 35 H (22-30) mmol/L BUN 19 H (7-17) mg/dL Glucose 133 H (74-99) mg/dL Magnesium 2.4 H (1.6-2.3) mg/dL AST 38 H (14-36) U/L Assessment and Plan Plan: Worsening shortness of breath, likely related to acute exacerbation of chronic obstructive pulmonary disease, and acute purulent bronchitis Underlying history of COPD Underlying history of chronic hypoxic respiratory failure maintained on home oxygen Underlying history of congestive heart failure Underlying history of atrial fibrillation patient is maintained on Eliquis, heart rate is well-controlled Underlying history of depression and anxiety disorder Underlying history of gastroesophageal reflux disease At this time patient is admitted to medical floor She was started on IV antibiotics, IV steroids and inhaled bronchodilators Will check echo cardiogram Consult pulmonary Home medications reviewed and reordered For DVT prophylaxis patient is on Eliquis
[2022-05-17] MEDS: methylPREDNISolone SOD SUCCI 40 MG/ML 1 ML VIAL IV SCH (20:15)
[2022-05-17] MEDS: AZITHROMYCIN 500 MG TAB PO SCH (20:16)
[2022-05-17 20:17] LABS: Glucose,Whole Blood 229 mg/dL (70-110)
[2022-05-17] MEDS: INSULIN ASPART (NovoLOG) 100 UNIT/ML VIAL SQ SCH (21:14)
[2022-05-18] MEDS: methylPREDNISolone SOD SUCCI 40 MG/ML 1 ML VIAL IV SCH ×4 (00:39→18:25)
[2022-05-18 06:30] LABS: Glucose,Whole Blood 235 mg/dL (70-110)
[2022-05-18] MEDS: LEVOTHYROXINE 75 MCG TAB PO SCH (06:54)
[2022-05-18] MEDS: SODIUM CHLORIDE 0.9% 1,000 ML IV SCH ×2 (06:55→15:48)
[2022-05-18] MEDS: INSULIN ASPART (NovoLOG) 100 UNIT/ML VIAL SQ SCH ×4 (06:55→20:42)
[2022-05-18] MEDS: PANTOPRAZOLE 40 MG TABLET PO SCH (06:56)
[2022-05-18] MEDS: DILTIAZEM CD 240 MG CAP.ER.24H PO SCH (09:12)
[2022-05-18] MEDS: FUROSEMIDE 40 MG TAB PO SCH (09:12)
[2022-05-18] MEDS: HYDROcodone/APAP 7.5-325MG 1 EACH TAB PO PRN ×2 (09:12→15:54)
[2022-05-18] MEDS: DAPAGLIFLOZIN PROPANEDIOL 5 MG TABLET PO SCH (09:12)
[2022-05-18] MEDS: MEMANTINE 5 MG TAB PO SCH ×2 (09:12→20:41)
[2022-05-18] MEDS: MULTIVITAMINS, THERA 1 EACH TAB PO SCH (09:13)
[2022-05-18] MEDS: APIXABAN 2.5 MG TABLET PO SCH ×2 (09:13→20:42)
[2022-05-18 10:25] LABS: HCT 40.9 % (37.2-46.3); HGB 12.6 g/dL (12.0-15.0); MCH 27.5 pg (27.0-32.0); MCHC 30.8 g/dL (32.0-37.0); MCV 89.1 fL (80.0-97.0); Mean Platelet Volume 10.2 fL (9.5-12.2); NRBC Per 100 WBC 0 /100 WBCS (0.0-0.0); Platelet Count 226 X 10*3/uL (140-440); RBC 4.59 X 10*6/uL (4.10-5.20); RDW 14.2 % (11.5-14.5); WBC 6.63 X 10*3/uL (4.50-10.00)
[2022-05-18 11:00] LABS: African American GFR (CKD) 90.2 (60.0-200.0); Albumin/Globulin Ratio 1.62 (1.60-3.17); Anion Gap 11.5 mmol/L (10.00-18.00); BUN/Creat Ratio 26.93 Ratio (12.00-20.00); Blood Urea Nitrogen 18.1 mg/dL (9.0-27.0); Calcium 8.9 mg/dL (8.7-10.3); Carbon Dioxide 30.8 mmol/L (20.0-27.5); Globulin 2.5 g/dL (1.6-3.3); Non-African American GFR(CKD) 77.9 (60.0-200.0); Potassium 4.6 mmol/L (3.5-5.5); Total Bilirubin 0.3 mg/dL (0.30-1.20); Total Protein 6.5 g/dL (6.2-8.2)
[2022-05-18] MEDS: IPRATROPIUM-ALBUTEROL 3 ML NEB INHALATION SCH ×3 (11:20→20:24)
[2022-05-18 11:22] LABS: Glucose,Whole Blood 187 mg/dL (70-110)
[2022-05-18 12:02] LABS: Basophils # (A) 0.01 X 10*3/uL (0.00-0.10); Basophils % (A) 0.2 %; Eosinophils # (A) 0 X 10*3/uL (0.04-0.35); Eosinophils % (A) 0 %; Immature Grans, Automated 0.3 %; Lymphocytes % (A) 15.1 %; Monocytes # (A) 0.15 X 10*3/uL (0.20-1.00); Monocytes % (A) 2.3 %; Neutrophils # (A) 5.45 X 10*3/uL (1.80-7.70); Neutrophils % (A) 82.1 %
[2022-05-18] MEDS ORDERED: guaiFENesin SYRUP 100MG/5ML 200 MG/10 ML CUP PO PRN (12:55)
--- NOTE | 2022-05-18 16:17 | CDI ---
Documentation Clarification Form Date: 05/18/2022 03:59:06 PM From: Ange Johnston Admit Date: 05/17/2022 12:11:00 AM Patient Name: Joyce Davis Visit Number: [id number] Discharge Date: ATTENTION: The Clinical Documentation Specialists (CDI) and [facility] Coding Staff appreciate your assistance in clarifying documentation. Please respond to the clarification below the line at the bottom and electronically sign. The CDI & [facility] Coding staff will review the response and follow-up if needed. Please note: Queries are made part of the Legal Health Record. If you have any questions, please contact the author of this message via ITS. Dr. Kareem Issa Your patient has the documented diagnosis of unspecified Heart failure, 05/17, H&P. Additional information regarding the type, acuity of CHF is requested. History/Risk Factors: 89-year-old female presents to the ED with worsening shortness of breath. Medical history: home oxygen; heart failure; DM; COPD and HTN. 05/17, H&P. Clinical Indicators: VS/Pulse OX: B/P 120/92; HR 82; RR 16; SpO2 96% 2L BNP: 05/16 466 Echocardiogram Results: 02/20/20 EF 55-60% right ventricle is mild to moderately enlarged. LA is severely dilated >40 ml/m2. Right atrium is mildly enlarged. Mild mitral regurgitation. Mild to moderate tricuspid regurgitation. Mild to moderate pulmonary hypertension. Chest X Ray: 05/16 Interstitial pulmonary fibrotic changes. Treatment: 05/17 Farxiga 5mg PO Daily; 05/17 Lasix 40mg PO Daily In your professional opinion, can you please clarify the acuity and type of CHF if known? [ ] Chronic Diastolic Heart Failure [ ] Other, please specify [ ] Unable to determine documented 05/18/[address] Aguayo Chronic diastolic CHF and hypertensive heart disease with concentric LVH. (Template Last Revised: July 2020) TALI
[2022-05-18 16:31] LABS: Glucose,Whole Blood 234 mg/dL (70-110)
--- NOTE | 2022-05-18 17:15 | P.CNPUL ---
History of Present Illness Consult date: 05/18/22 Reason for consult: dyspnea, COPD History of present illness: 89-year-old female patient with a multitude of complaints including shortness of breath, increased cough and congestion and chest that is a wheezing which is part of her routine COPD exacerbation as the patient is known to have severe COPD with an FEV1 of 49% of predicted and she is home oxygen dependent at 2 L/m nasal cannula. At the same time, the patient is complaining of back pain mainly in her lower back, radiating to her buttocks bilaterally and some limited extension to her legs. No motor weakness in lower oximetry is bilaterally. She is known to have multiple comorbid conditions including history of atrial fibrillation, chronic diastolic heart failure, diabetes mellitus type 2, hypertension hyperlipidemia and obstructive sleep apnea and the patient does not utilizes CPAP device. The patient has hypothyroidism, and the patient has had previous ESBL producing urine checked infections along with chronic anxiety and depression. During this current admission, the patient had a white cell count of 6.6 with a hemoglobin of 12.6, sodium 140, BUN of 18 with a creatinine of 0.7, normal LFTs, normal electrolytes. The chest x-ray shows COPD, some interstitial coarse densities in the lung bases bilaterally. No consolidation or airspace disease. She is awake and alert. She is communicating. No altered mentation. Denies having any significant chest pain. Her most recent computed tomography scan of the chest that was done with contrast back in October 2021 showed a moderate-sized right-sided pleural effusion and some atelectatic changes in the right lung base. Note that the subnormality recovered on subsequent x-rays. The patient did not receive any thoracentesis. The most recent echocardiogram that was on this patient was from 02/19/2020 and it showed a preserved LV function, moderate concentric LVH and hypertensive heart disease. Mild to moderate pulmonary hypertension. No significant valvular abnormalities. Review of Systems Constitutional: Denies chills, Denies fever Eyes: denies blurred vision, denies pain Ears, nose, mouth and throat: Denies headache, Denies sore throat Cardiovascular: chest pain, shortness of breath Respiratory: Reports cough, Reports dyspnea Gastrointestinal: Denies abdominal pain, Denies diarrhea, Denies nausea, Denies vomiting Genitourinary: Denies dysuria, Denies hematuria Musculoskeletal: Denies myalgias, back pain, chronic with intermittent exacerbations the patient has significant atelectasis of the lumbar spine Integumentary: Denies pruritus, Denies rash Neurological: Denies numbness, she has weakness Psychiatric: Denies anxiety, Denies depression Endocrine: Denies fatigue, Denies weight change Past Medical History Past Medical History: Atrial Fibrillation, Chest Pain / Angina, Heart Failure, Diabetes Mellitus, GERD/Reflux, Hyperlipidemia, Hypertension, Osteoarthritis (OA), Respiratory Disorder, Sleep Apnea/CPAP/BIPAP, Thyroid Disorder Additional Past Medical History / Comment(s): DDD WITH BACK PAIN, OCCASIONAL SWELLING IN FEET, USES C-PAP MACHINE. Pt wears o2 2l all the time History of Any Multi-Drug Resistant Organisms: ESBL Date of last positivie culture/infection: 09/22/20 ESBL Klebsiella MDRO Source:: Urine Past Surgical History: Cholecystectomy, Hysterectomy, Joint Replacement Additional Past Surgical History / Comment(s): EGD for gastric reflux. Excision of lipomas. bilateral cataracts, left total knee., Pain clinic procedures. Past Anesthesia/Blood Transfusion Reactions: No Reported Reaction Past Psychological History: Anxiety, Depression Smoking Status: Former smoker Past Alcohol Use History: None Reported Past Drug Use History: None Reported - Past Family History Brother(s) Family Medical History: Congestive Heart Failure (CHF), COPD, Coronary Artery Disease (CAD), Diabetes Mellitus Daughter(s) Additional Family Medical History / Comment(s): One from MVA Son(s) Family Medical History: Diabetes Mellitus, Hyperlipidemia, Hypertension Sister(s) Family Medical History: Cancer Mother Family Medical History: Dementia Father Family Medical History: COPD Additional Family Medical History / Comment(s): EMPHYSEMA. Medications and Allergies Home Medications Medication Instructions Recorded Confirmed Type Apixaban [Eliquis] 2.5 mg PO BID 02/14/16 05/17/22 History HYDROcodone/APAP 7.5-325MG [[place] 1 tab PO Q6H PRN 02/18/20 05/17/22 History 7.5-325] Multivit-Min/FA/Lycopen/Lutein 1 tab PO DAILY 03/08/20 05/17/22 History [Centrum Silver Tablet] Meclizine [Antivert] 25 mg PO TID PRN 08/04/20 05/17/22 History Empagliflozin [Jardiance] 10 mg PO DAILY 10/29/21 05/17/22 History Furosemide [Lasix] 40 mg PO DAILY 10/29/21 05/17/22 History Levothyroxine Sodium [Synthroid] 75 mcg PO DAILY 10/29/21 05/17/22 History Memantine [Namenda] 5 mg PO BID 10/29/21 05/17/22 History dilTIAZem HCL [dilTIAZem HCL 24Hr 240 mg PO DAILY 10/29/21 05/17/22 History ER] Pantoprazole [Protonix] 40 mg PO AC-BRKFST tab 11/05/21 05/17/22 Rx Sulfamethoxazole/Trimethoprim 1 tab PO BID 05/17/22 05/17/22 History [Bactrim DS 800-160 mg] Allergies Allergy/AdvReac Type Severity Reaction Status Date / Time aspirin AdvReac Dyspnea,Nausea/Vomiting,Dizzy,Tingling,Warm Verified 05/17/22 09:14 sensation Physical Exam Vitals: Vital Signs Temp Pulse Pulse Resp BP Pulse Ox 05/18/22 11:33 92 05/18/22 11:21 92 05/18/22 10:24 18 05/18/22 09:17 94 L 05/18/22 07:15 97.5 F L 95 17 115/70 93 L 05/17/22 20:15 97 21 05/17/22 20:00 97.6 F 97 21 122/76 95 05/17/22 14:00 97.7 F 103 H 17 120/70 94 L Intake and Output 05/17/22 05/18/22 05/18/22 22:59 06:59 14:59 Intake Total 1420 Balance 1420 Intake: Intake, IV Titration 0 Amount Azithromycin 500 mg In 0 Sodium Chloride 0.9% 250 ml @ 250 mls/hr IVPB ONCE STA Rx#:[id number] Sodium Chloride 0.9% 1, 0 000 ml @ 75 mls/hr IV . [id number] [facility] Rx#:[id number] cefTRIAXone 1 gm In 0 Sodium Chloride 0.9% 50 ml @ 100 mls/hr IVPB ONCE STA Rx#:[id number] cefTRIAXone 1 gm In 0 Sodium Chloride 0.9% 50 ml @ 100 mls/hr IVPB Q24HR [facility] Rx#:[id number] Oral 1000 Tube Feeding 420 Other: Voiding Method Bedside Commode Bedside Commode Diaper Diaper # Voids 6 4 # Bowel Movements 1 GENERAL EXAM: Alert, very pleasant, 89-year-old female in 2 L of oxygen with a pulse ox of 98%, comfortable in no apparent distress. HEAD: Normocephalic/atraumatic. EYES: Normal reaction of pupils, equal size. Conjunctiva pink, sclera white. NOSE: Clear with pink turbinates. THROAT: No erythema or exudates. NECK: No masses, no JVD, no thyroid enlargement, no adenopathy. CHEST: No chest wall deformity. Symmetrical expansion. LUNGS: Equal air entry with no crackles, wheeze, rhonchi or dullness. CVS: Regular rate and rhythm, normal S1 and S2, no gallops, no murmurs, no rubs ABDOMEN: Soft, nontender. No hepatosplenomegaly, normal bowel sounds, no guarding or rigidity. EXTREMITIES: No clubbing, no edema, no cyanosis, 2+ pulses and upper and lower extremities. MUSCULOSKELETAL: Muscle strength and tone normal. SPINE: No scoliosis or deformity SKIN: No rashes CENTRAL NERVOUS SYSTEM: Alert and oriented -3. No focal deficits, tone is normal in all 4 extremities. PSYCHIATRIC: Alert and oriented -3. Appropriate affect. Intact judgment and insight. Results - Laboratory Findings CBC and BMP: 05/18/22 06:39 05/18/22 06:39 PT/INR, D-dimer D-Dimer 0.51 mg/L FEU (<0.60) 05/16/22 22:43 Abnormal lab findings: Abnormal Labs 05/16/22 05/17/22 05/18/22 22:43 20:15 06:29 MCHC Monocytes # Eosinophils # Sodium 136 L Chloride 93 L Carbon Dioxide 35 H BUN 19 H BUN/Creatinine Ratio Glucose 133 H POC Glucose (mg/dL) 229 H 235 H Magnesium 2.4 H AST 38 H 05/18/22 05/18/22 05/18/22 06:39 06:39 11:21 MCHC 30.8 L Monocytes # 0.15 L Eosinophils # 0 L Sodium Chloride Carbon Dioxide 30.8 H BUN BUN/Creatinine Ratio 26.93 H Glucose 219 H POC Glucose (mg/dL) 187 H Magnesium AST - Diagnostic Findings Chest x-ray: image reviewed Assessment and Plan Plan: Acute exacerbation of COPD, no evidence of pneumonia. Some limited course interstitial changes lung bases bilaterally. Chronic COPD with hypoxic respiratory failure, FEV1 of 49% of predicted and the patient has been on home O2 History of right-sided pleural effusion, recovered on subsequent chest x-rays and attempted right-sided thoracentesis however there was no fluid to be removed chronic diastolic CHF and hypertensive heart disease with concentric LVH COPD with baseline FEV1 of 49% of predicted with chronic hypoxic respiratory failure on home oxygen at 2 L Recent reported history of left knee surgery, the details are not available to us obstructive sleep apnea History of morbid obesity diabetes multiple's type II History of degenerative disc disease GERD hypertension Hyperlipidemia Chronic A. fib on Eliquis Chronic pain History of CVA/TIA Plan Agree on the current management Continue bronchodilators and the current steroid regimen and antibiotic regimen Home O2 Continue anticoagulants Check cardiac enzymes and proBNP level Check pro calcitonin level Check influenza A and B Checked Covid 19 by PCR and this was negative May need spine surgery to evaluate this patient's back pain
[2022-05-18] MEDS: AZITHROMYCIN 500 MG TAB PO SCH (17:27)
--- NOTE | 2022-05-18 17:37 | P.PN ---
Subjective Progress Note Date: 05/18/22 Joyce Davis, is an 89-year-old female who presented to [facility] emergency room with a chief complaint of worsening shortness of breath She was evaluated in the emergency room vital examination on presentation revealed a temperature of 98.8 pulse 82 respiration 16 blood pressure 120/92 pulse ox 96% on 2 L nasal cannula Laboratory data revealed a white blood count of 6.2 hemoglobin 12.8 platelet count 177 sodium 136 potassium 4.3 chloride 93 CO2 35 BUN 19 creatinine 0.68 troponin level less than 0.012 Testing in the emergency room revealed chest x-ray done in the emergency room revealed interstitial pulmonary fibrotic changes, EKG done in the emergency room revealed atrial fibrillation Patient was admitted to medical floor for further evaluation and treatment. On 05/18/2022 patient was seen and examined on the medical floor she is alert and oriented 3 in no apparent distress she is still complaining of cough and shortness of breath otherwise she denies any complaints there is no fever or chills no headache or dizziness no chest pain no nausea or vomiting no abdominal pain no diarrhea and no urinary symptoms. Family member called our office today and stated that patient can get psychosis and had loose induration with the use of Solu-Medrol, at this time I am going to decrease the dose to 20 mg every 8 hours Continue with IV antibiotics, continue with inhaled bronchodilators Will follow in a.m. Objective - Vital Signs Vital signs: Vital Signs Temp 97.5 F L 05/18/22 07:15 Pulse 95 05/18/22 07:15 Resp 18 05/18/22 10:24 BP 115/70 05/18/22 07:15 Pulse Ox 94 L 05/18/22 09:17 FiO2 Intake & Output 05/17/22 05/18/22 05/18/22 18:59 06:59 18:59 Intake Total 1420 Balance 1420 Intake: Intake, IV Titration 0 Amount Azithromycin 500 mg In 0 Sodium Chloride 0.9% 250 ml @ 250 mls/hr IVPB ONCE STA Rx#:[id number] Sodium Chloride 0.9% 1, 0 000 ml @ 75 mls/hr IV . [id number] [facility] Rx#:[id number] cefTRIAXone 1 gm In 0 Sodium Chloride 0.9% 50 ml @ 100 mls/hr IVPB ONCE STA Rx#:[id number] cefTRIAXone 1 gm In 0 Sodium Chloride 0.9% 50 ml @ 100 mls/hr IVPB Q24HR [facility] Rx#:[id number] Oral 1000 Tube Feeding 420 Other: Voiding Method Bedside Commode Bedside Commode Diaper Diaper # Voids 6 4 # Bowel Movements 1 - Exam Joyce Davis, is an 89-year-old female who presented to [facility] emergency room with a chief complaint of worsening shortness of breath She was evaluated in the emergency room vital examination on presentation revealed a temperature of 98.8 pulse 82 respiration 16 blood pressure 120/92 pulse ox 96% on 2 L nasal cannula Laboratory data revealed a white blood count of 6.2 hemoglobin 12.8 platelet count 177 sodium 136 potassium 4.3 chloride 93 CO2 35 BUN 19 creatinine 0.68 troponin level less than 0.012 Testing in the emergency room revealed chest x-ray done in the emergency room revealed interstitial pulmonary fibrotic changes, EKG done in the emergency room revealed atrial fibrillation Patient was admitted to medical floor for further evaluation and treatment. - Labs CBC & Chem 7: 05/18/22 06:39 05/18/22 06:39 Labs: Abnormal Lab Results - Last 24 Hours (Table) 05/17/22 05/18/22 05/18/22 Range/Units 20:15 06:29 06:39 MCHC 30.8 L (32.0-37.0) g/dL POC Glucose (mg/dL) 229 H 235 H (70-110) mg/dL Assessment and Plan Plan: Worsening shortness of breath, likely related to acute exacerbation of chronic obstructive pulmonary disease, and acute purulent bronchitis Underlying history of COPD Underlying history of chronic hypoxic respiratory failure maintained on home oxygen Underlying history of congestive heart failure Underlying history of atrial fibrillation patient is maintained on Eliquis, heart rate is well-controlled Underlying history of depression and anxiety disorder Underlying history of gastroesophageal reflux disease At this time patient is admitted to medical floor She was started on IV antibiotics, IV steroids and inhaled bronchodilators Will check echo cardiogram Consult pulmonary Home medications reviewed and reordered For DVT prophylaxis patient is on Eliquis
[2022-05-18 20:13] LABS: Glucose,Whole Blood 293 mg/dL (70-110)
[2022-05-19] MEDS: methylPREDNISolone SOD SUCCI 40 MG/ML 1 ML VIAL IV SCH ×3 (01:08→17:04)
[2022-05-19] MEDS: IPRATROPIUM-ALBUTEROL 3 ML NEB INHALATION SCH ×6 (01:36→21:10)
[2022-05-19 06:05] LABS: Glucose,Whole Blood 190 mg/dL (70-110)
[2022-05-19] MEDS: LEVOTHYROXINE 75 MCG TAB PO SCH (06:28)
[2022-05-19] MEDS: INSULIN ASPART (NovoLOG) 100 UNIT/ML VIAL SQ SCH ×4 (06:28→21:59)
[2022-05-19] MEDS: PANTOPRAZOLE 40 MG TABLET PO SCH (06:28)
[2022-05-19] MEDS: HYDROcodone/APAP 7.5-325MG 1 EACH TAB PO PRN ×2 (06:28→12:11)
[2022-05-19] MEDS: FUROSEMIDE 40 MG TAB PO SCH (08:03)
[2022-05-19] MEDS: MULTIVITAMINS, THERA 1 EACH TAB PO SCH (08:03)
[2022-05-19] MEDS: APIXABAN 2.5 MG TABLET PO SCH ×2 (08:03→21:59)
[2022-05-19] MEDS: MEMANTINE 5 MG TAB PO SCH ×2 (08:03→21:59)
[2022-05-19] MEDS: DILTIAZEM CD 240 MG CAP.ER.24H PO SCH (08:04)
[2022-05-19] MEDS: DAPAGLIFLOZIN PROPANEDIOL 5 MG TABLET PO SCH (08:04)
[2022-05-19] MEDS: guaiFENesin-Coden 100-10MG/5ML 10 ML CUP PO PRN ×2 (08:10→22:00)
--- NOTE | 2022-05-19 10:02 | CA ---
Transthoracic Echo Report Name: Joyce Davis Age: 89 Gender: F : 1930 Exam Date: 05/18/2022 09:37 Exam Location: [facility] Ht (in): 60 Wt (lb): 167 Ordering Physician: Kareem Issa MD Attending/Referring Phys: [employer] Worker Falguni Dowling RDCS Procedure CPT: Indications: SHORTNESS OF BREATH Cardiac Hx: Technical Quality: Technically difficult study Contrast 1: Lumason Total Dose (mL): 4 Contrast 2: Total Dose (mL): MEASUREMENTS (Male / Female) Normal Values 2D ECHO LV Diastolic Diameter PLAX 4.1 cm 4.2 - 5.9 / 3.9 - 5.3 cm LV Systolic Diameter PLAX 2.8 cm IVS Diastolic Thickness 1.1 cm 0.6 - 1.0 / 0.6 - 0.9 cm LVPW Diastolic Thickness 1.2 cm 0.6 - 1.0 / 0.6 - 0.9 cm LV Relative Wall Thickness 0.6 LA Volume 100.5 cm??? 18 - 58 / 22 - 52 cm??? M-MODE Aortic Root Diameter MM 2.4 cm LA Systolic Diameter MM 2.9 cm LA Ao Ratio MM 1.2 DOPPLER AV Peak Velocity 129.3 cm/s AV Peak Gradient 6.7 mmHg LVOT Peak Velocity 94.3 cm/s LVOT Peak Gradient 3.6 mmHg MV Area PHT 3.1 cm??? Mitral E Point Velocity 127.2 cm/s Mitral A Point Velocity 1.8 cm/s Mitral E to A Ratio 68.8 MV Deceleration Time 247.2 ms TR Peak Velocity 252.5 cm/s TR Peak Gradient 25.5 mmHg Right Ventricular Systolic Press 29.7 mmHg FINDINGS Left Ventricle Mildly increased left ventricular wall thickness. Normal left ventricular systolic function with no obvious regional wall motion abnormalities. Left ventricular ejection fraction is estimated at 55 %. Right Ventricle Normal right ventricular size and function. Right ventricular systolic pressure within normal limits. Right Atrium Normal right atrial size. Left Atrium Severely increased left atrial volume. Mitral Valve Moderate mitral annular calcification. [id number] mitral regurgitation. Aortic Valve Aortic valve sclerosis. Diffuse thickening (sclerosis) of the aortic valve cusps without reduced excursion. Increased echo density of right coronary cusp annulus likely representing calcification vs less likely aortic root abscess. Consider JAI if clinically indicated. Tricuspid Valve Structurally normal tricuspid valve. Mild tricuspid regurgitation. Pulmonic Valve Trace pulmonic regurgitation. Pericardium No pericardial effusion. Aorta Normal size aortic root and proximal ascending aorta. CONCLUSIONS Left ventricular ejection fraction 55% Mildly increased left ventricular wall thickness Moderate to severely dilated left atrium Mild to moderate mitral regurgitation Aortic valve sclerosis without significant aortic stenosis Increased echo density of right coronary cusp annulus likely representing calcification vs less likely aortic root abscess. Consider JAI if clinically indicated. Mild tricuspid regurgitation No pericardial effusion Previewed by: Dr. Kyree Lehman DO (Electronically Signed) Final Date: 19 May 2022 10:01
[2022-05-19 11:47] LABS: Glucose,Whole Blood 273 mg/dL (70-110)
--- NOTE | 2022-05-19 13:44 | P.PN ---
Subjective Progress Note Date: 05/19/22 Joyce Davis, is an 89-year-old female who presented to [facility] emergency room with a chief complaint of worsening shortness of breath She was evaluated in the emergency room vital examination on presentation revealed a temperature of 98.8 pulse 82 respiration 16 blood pressure 120/92 pulse ox 96% on 2 L nasal cannula Laboratory data revealed a white blood count of 6.2 hemoglobin 12.8 platelet count 177 sodium 136 potassium 4.3 chloride 93 CO2 35 BUN 19 creatinine 0.68 troponin level less than 0.012 Testing in the emergency room revealed chest x-ray done in the emergency room revealed interstitial pulmonary fibrotic changes, EKG done in the emergency room revealed atrial fibrillation Patient was admitted to medical floor for further evaluation and treatment. On 05/18/2022 patient was seen and examined on the medical floor she is alert and oriented 3 in no apparent distress she is still complaining of cough and shortness of breath otherwise she denies any complaints there is no fever or chills no headache or dizziness no chest pain no nausea or vomiting no abdominal pain no diarrhea and no urinary symptoms. Family member called our office today and stated that patient can get psychosis and had loose induration with the use of Solu-Medrol, at this time I am going to decrease the dose to 20 mg every 8 hours Continue with IV antibiotics, continue with inhaled bronchodilators Will follow in a.m. On 05/19/2022 patient is alert and oriented 3. Patient reports improvement with shortness of breath and coughing. Patient remains on IV steroids. Patient denies chest pain. Patient denies nausea vomiting or diarrhea. Patient denies any urinary burning or frequency Objective - Vital Signs Vital signs: Vital Signs Temp 97.8 F 05/19/22 07:59 Pulse 104 H 05/19/22 11:46 Resp 18 05/19/22 07:30 BP 118/58 05/19/22 07:59 Pulse Ox 95 05/19/22 08:17 FiO2 Intake & Output 05/18/22 05/19/22 05/19/22 18:59 06:59 18:59 Intake Total 200 Balance 200 Intake: Oral 200 Other: Voiding Method Bedside Commode Bedside Commode Bedside Commode Diaper Diaper Diaper # Voids 6 5 # Bowel Movements 1 - Exam Joyce Davis, is an 89-year-old female who presented to [facility] emergency room with a chief complaint of worsening shortness of breath She was evaluated in the emergency room vital examination on presentation revealed a temperature of 98.8 pulse 82 respiration 16 blood pressure 120/92 pulse ox 96% on 2 L nasal cannula Laboratory data revealed a white blood count of 6.2 hemoglobin 12.8 platelet count 177 sodium 136 potassium 4.3 chloride 93 CO2 35 BUN 19 creatinine 0.68 troponin level less than 0.012 Testing in the emergency room revealed chest x-ray done in the emergency room revealed interstitial pulmonary fibrotic changes, EKG done in the emergency room revealed atrial fibrillation Patient was admitted to medical floor for further evaluation and treatment. - Labs CBC & Chem 7: 05/18/22 06:39 05/18/22 06:39 Labs: Abnormal Lab Results - Last 24 Hours (Table) 05/18/22 05/18/22 05/19/22 Range/Units 16:29 20:11 06:03 POC Glucose (mg/dL) 234 H 293 H 190 H (70-110) mg/dL 05/19/22 Range/Units 11:45 POC Glucose (mg/dL) 273 H (70-110) mg/dL Assessment and Plan Plan: Worsening shortness of breath, likely related to acute exacerbation of chronic obstructive pulmonary disease, and acute purulent bronchitis Underlying history of COPD Underlying history of chronic hypoxic respiratory failure maintained on home oxygen Underlying history of congestive heart failure Underlying history of atrial fibrillation patient is maintained on Eliquis, heart rate is well-controlled Underlying history of depression and anxiety disorder Underlying history of gastroesophageal reflux disease At this time patient is admitted to medical floor She was started on IV antibiotics, IV steroids and inhaled bronchodilators Will check echo cardiogram Consult pulmonary Home medications reviewed and reordered For DVT prophylaxis patient is on Eliquis
--- NOTE | 2022-05-19 16:25 | P.PN ---
Subjective Progress Note Date: 05/19/22 89-year-old female patient with a multitude of complaints including shortness of breath, increased cough and congestion and chest that is a wheezing which is part of her routine COPD exacerbation as the patient is known to have severe COPD with an FEV1 of 49% of predicted and she is home oxygen dependent at 2 L/m nasal cannula. At the same time, the patient is complaining of back pain mainly in her lower back, radiating to her buttocks bilaterally and some limited extension to her legs. No motor weakness in lower oximetry is bilaterally. She is known to have multiple comorbid conditions including history of atrial fibrillation, chronic diastolic heart failure, diabetes mellitus type 2, hypertension hyperlipidemia and obstructive sleep apnea and the patient does not utilizes CPAP device. The patient has hypothyroidism, and the patient has had previous ESBL producing urine checked infections along with chronic anxiety and depression. During this current admission, the patient had a white cell count of 6.6 with a hemoglobin of 12.6, sodium 140, BUN of 18 with a creatinine of 0.7, normal LFTs, normal electrolytes. The chest x-ray shows COPD, some interstitial coarse densities in the lung bases bilaterally. No consolidation or airspace disease. She is awake and alert. She is communicating. No altered mentation. Denies having any significant chest pain. Her most recent computed tomography scan of the chest that was done with contrast back in October 2021 showed a moderate-sized right-sided pleural effusion and some atelectatic changes in the right lung base. Note that the subnormality recovered on subsequent x-rays. The patient did not receive any thoracentesis. The most recent echocardiogram that was on this patient was from 02/19/2020 and it showed a preserved LV funct ion, moderate concentric LVH and hypertensive heart disease. Mild to moderate pulmonary hypertension. No significant valvular abnormalities. The patient is seen today 05/19/2022 in follow-up on the regular medical floor. She is currently sitting up at the bedside. Awake and alert in no acute distress. No worsening shortness of breath, cough or congestion. She is still having mainly complains of low back pain. She is maintaining O2 saturations in the 90s on 3 L/m per nasal cannula. Afebrile. Blood glucose 273. Chronic virus by PCR not detected. Influenza screen negative. RSV negative. Procalcitonin 0.03. She is continued on DuoNeb inhalations, IV Solu-Medrol. Antibiotics in the form of ceftriaxone and azithromycin. Anticoagulated with Eliquis. Remains on oral diuretics. Objective - Vital Signs Vital signs: Vital Signs Temp 98.0 F 05/19/22 14:00 Pulse 100 05/19/22 16:13 Resp 18 05/19/22 07:30 BP 122/60 05/19/22 14:00 Pulse Ox 98 05/19/22 14:00 FiO2 Intake & Output 05/18/22 05/19/22 05/19/22 18:59 06:59 18:59 Intake Total 200 Balance 200 Intake: Oral 200 Other: Voiding Method Bedside Commode Bedside Commode Bedside Commode Diaper Diaper Diaper # Voids 6 5 # Bowel Movements 1 - Exam GENERAL EXAM: Alert, very pleasant, 89-year-old female in 2 L of oxygen, comfortable in no apparent distress. HEAD: Normocephalic/atraumatic. EYES: Normal reaction of pupils, equal size. Conjunctiva pink, sclera white. NOSE: Clear with pink turbinates. THROAT: No erythema or exudates. NECK: No masses, no JVD, no thyroid enlargement, no adenopathy. CHEST: No chest wall deformity. Symmetrical expansion. LUNGS: Equal air entry with few scattered rhonchi. CVS: Regular rate and rhythm, normal S1 and S2, no gallops, no murmurs, no rubs ABDOMEN: Soft, nontender. No hepatosplenomegaly, normal bowel sounds, no guarding or rigidity. EXTREMITIES: No clubbing, no edema, no cyanosis, 2+ pulses and upper and lower extremities. MUSCULOSKELETAL: Muscle strength and tone normal. SPINE: No scoliosis or deformity SKIN: No rashes CENTRAL NERVOUS SYSTEM: No focal deficits, tone is normal in all 4 extremities. PSYCHIATRIC: Alert and oriented -3. Appropriate affect. Intact judgment and insight. - Labs CBC & Chem 7: 05/18/22 06:39 05/18/22 06:39 Labs: Abnormal Lab Results - Last 24 Hours (Table) 05/18/22 05/18/22 05/19/22 Range/Units 16:29 20:11 06:03 POC Glucose (mg/dL) 234 H 293 H 190 H (70-110) mg/dL 05/19/22 Range/Units 11:45 POC Glucose (mg/dL) 273 H (70-110) mg/dL Assessment and Plan Assessment: Acute exacerbation of COPD, no evidence of pneumonia. Pro-calcitonin 0.03. Some limited course interstitial changes lung bases bilaterally. Chronic COPD with hypoxic respiratory failure, FEV1 of 49% of predicted and the patient has been on home O2 History of right-sided pleural effusion, recovered on subsequent chest x-rays and attempted right-sided thoracentesis however there was no fluid to be removed chronic diastolic CHF and hypertensive heart disease with concentric LVH COPD with baseline FEV1 of 49% of predicted with chronic hypoxic respiratory failure on home oxygen at 2 L Recent reported history of left knee surgery, the details are not available to us obstructive sleep apnea History of morbid obesity diabetes multiple's type II History of degenerative disc disease GERD hypertension Hyperlipidemia Chronic A. fib on Eliquis Chronic pain History of CVA/TIA Plan: The patient was seen and evaluated Medications and labs reviewed Pro calcitonin 0.03 Discontinue antibiotics Continue low-dose steroids, bronchodilators, Robitussin Remains on Eliquis for anticoagulation Titrate the FiO2 as tolerated We will continue to follow I have personally seen and examined the patient, performed the documentation and the assessment and plan as written. Number of minutes spent on the visit: 10. Evaluation that was done along with the nurse practitioner. I agree on the above-mentioned plan. The patient was seen in conjunction with the [employer]. This evaluation was done in more than 20 minutes.
[2022-05-19 16:41] LABS: Glucose,Whole Blood 313 mg/dL (70-110)
[2022-05-19 20:59] LABS: Glucose,Whole Blood 161 mg/dL (70-110)
[2022-05-20] MEDS: HYDROcodone/APAP 7.5-325MG 1 EACH TAB PO PRN ×3 (00:10→13:36)
[2022-05-20] MEDS: methylPREDNISolone SOD SUCCI 40 MG/ML 1 ML VIAL IV SCH ×3 (00:10→16:17)
[2022-05-20] MEDS: IPRATROPIUM-ALBUTEROL 3 ML NEB INHALATION SCH ×6 (00:29→20:50)
[2022-05-20 06:02] LABS: Glucose,Whole Blood 224 mg/dL (70-110)
[2022-05-20] MEDS: LEVOTHYROXINE 75 MCG TAB PO SCH (06:32)
[2022-05-20] MEDS: PANTOPRAZOLE 40 MG TABLET PO SCH (06:32)
[2022-05-20] MEDS: INSULIN ASPART (NovoLOG) 100 UNIT/ML VIAL SQ SCH ×4 (06:32→22:27)
[2022-05-20 08:48] LABS: Basophils # (A) 0.01 X 10*3/uL (0.00-0.10); Basophils % (A) 0.1 %; Eosinophils # (A) 0 X 10*3/uL (0.04-0.35); Eosinophils % (A) 0 %; HCT 40.8 % (37.2-46.3); HGB 12.4 g/dL (12.0-15.0); Immature Grans, Automated 0.7 %; Lymphocytes # (A) 0.77 X 10*3/uL (0.90-5.00); Lymphocytes % (A) 8.6 %; MCH 27.4 pg (27.0-32.0); MCHC 30.4 g/dL (32.0-37.0); MCV 90.3 fL (80.0-97.0); Mean Platelet Volume 9.6 fL (9.5-12.2); Monocytes # (A) 0.29 X 10*3/uL (0.20-1.00); Monocytes % (A) 3.3 %; NRBC Per 100 WBC 0 /100 WBCS (0.0-0.0); Neutrophils # (A) 7.78 X 10*3/uL (1.80-7.70); Neutrophils % (A) 87.3 %; Platelet Count 264 X 10*3/uL (140-440); RBC 4.52 X 10*6/uL (4.10-5.20); RDW 14.4 % (11.5-14.5); WBC 8.91 X 10*3/uL (4.50-10.00)
[2022-05-20] MEDS: DILTIAZEM CD 240 MG CAP.ER.24H PO SCH (09:31)
[2022-05-20] MEDS: DAPAGLIFLOZIN PROPANEDIOL 5 MG TABLET PO SCH (09:31)
[2022-05-20] MEDS: FUROSEMIDE 40 MG TAB PO SCH (09:31)
[2022-05-20] MEDS: MULTIVITAMINS, THERA 1 EACH TAB PO SCH (09:31)
[2022-05-20] MEDS: MEMANTINE 5 MG TAB PO SCH ×2 (09:31→22:27)
[2022-05-20] MEDS: APIXABAN 2.5 MG TABLET PO SCH ×2 (09:31→22:27)
[2022-05-20] MEDS: guaiFENesin-Coden 100-10MG/5ML 10 ML CUP PO PRN (09:37)
[2022-05-20 10:19] LABS: African American GFR (CKD) 92.1 (60.0-200.0); Albumin/Globulin Ratio 1.74 (1.60-3.17); BUN/Creat Ratio 28.05 Ratio (12.00-20.00); Blood Urea Nitrogen 17.7 mg/dL (9.0-27.0); Calcium 9.2 mg/dL (8.7-10.3); Carbon Dioxide 37.9 mmol/L (20.0-27.5); Globulin 2.3 g/dL (1.6-3.3); Non-African American GFR(CKD) 79.5 (60.0-200.0); Potassium 4.8 mmol/L (3.5-5.5); Total Bilirubin 0.4 mg/dL (0.30-1.20); Total Protein 6.3 g/dL (6.2-8.2)
[2022-05-20 11:48] LABS: Glucose,Whole Blood 195 mg/dL (70-110)
--- NOTE | 2022-05-20 14:21 | P.PN ---
Subjective Progress Note Date: 05/20/22 Joyce Davis, is an 89-year-old female who presented to [facility] emergency room with a chief complaint of worsening shortness of breath She was evaluated in the emergency room vital examination on presentation revealed a temperature of 98.8 pulse 82 respiration 16 blood pressure 120/92 pulse ox 96% on 2 L nasal cannula Laboratory data revealed a white blood count of 6.2 hemoglobin 12.8 platelet count 177 sodium 136 potassium 4.3 chloride 93 CO2 35 BUN 19 creatinine 0.68 troponin level less than 0.012 Testing in the emergency room revealed chest x-ray done in the emergency room revealed interstitial pulmonary fibrotic changes, EKG done in the emergency room revealed atrial fibrillation Patient was admitted to medical floor for further evaluation and treatment. On 05/18/2022 patient was seen and examined on the medical floor she is alert and oriented 3 in no apparent distress she is still complaining of cough and shortness of breath otherwise she denies any complaints there is no fever or chills no headache or dizziness no chest pain no nausea or vomiting no abdominal pain no diarrhea and no urinary symptoms. Family member called our office today and stated that patient can get psychosis and had loose induration with the use of Solu-Medrol, at this time I am going to decrease the dose to 20 mg every 8 hours Continue with IV antibiotics, continue with inhaled bronchodilators Will follow in a.m. On 05/19/2022 patient is alert and oriented 3. Patient reports improvement with shortness of breath and coughing. Patient remains on IV steroids. Patient denies chest pain. Patient denies nausea vomiting or diarrhea. Patient denies any urinary burning or frequency On 05/20/2022 patient was seen and examined on the medical floor she is alert and oriented 3 she is still complaining of shortness of breath and cough otherwise she denies any complaints there is no fever or chills no headache or dizziness no chest pain, no nausea or vomiting no abdominal pain no diarrhea and no urinary symptoms Objective - Vital Signs Vital signs: Vital Signs Temp 97.8 F 05/20/22 08:00 Pulse 92 05/20/22 08:06 Resp 20 05/20/22 08:00 BP 155/83 05/20/22 08:00 Pulse Ox 86 L 05/20/22 08:00 FiO2 Intake & Output 05/19/22 05/20/22 05/20/22 18:59 06:59 18:59 Intake Total 300 Output Total 600 Balance -300 Intake: Oral 300 Output: Urine 600 Other: Voiding Method Bedside Commode Bedside Commode Diaper Diaper # Voids 1 - Exam Joyce Davis, is an 89-year-old female who presented to [facility] emergency room with a chief complaint of worsening shortness of breath She was evaluated in the emergency room vital examination on presentation revealed a temperature of 98.8 pulse 82 respiration 16 blood pressure 120/92 pulse ox 96% on 2 L nasal cannula Laboratory data revealed a white blood count of 6.2 hemoglobin 12.8 platelet count 177 sodium 136 potassium 4.3 chloride 93 CO2 35 BUN 19 creatinine 0.68 troponin level less than 0.012 Testing in the emergency room revealed chest x-ray done in the emergency room revealed interstitial pulmonary fibrotic changes, EKG done in the emergency room revealed atrial fibrillation Patient was admitted to medical floor for further evaluation and treatment. - Labs CBC & Chem 7: 05/20/22 06:18 05/20/22 06:18 Labs: Abnormal Lab Results - Last 24 Hours (Table) 05/19/22 05/19/22 05/19/22 Range/Units 11:45 16:39 20:56 MCHC (32.0-37.0) g/dL Immature Gran # (0.00-0.04) X 10*3/uL Neutrophils # (1.80-7.70) X 10*3/uL Lymphocytes # (0.90-5.00) X 10*3/uL Eosinophils # (0.04-0.35) X 10*3/uL POC Glucose (mg/dL) 273 H 313 H 161 H (70-110) mg/dL 05/20/22 05/20/22 Range/Units 06:00 06:18 MCHC 30.4 L (32.0-37.0) g/dL Immature Gran # 0.06 H (0.00-0.04) X 10*3/uL Neutrophils # 7.78 H (1.80-7.70) X 10*3/uL Lymphocytes # 0.77 L (0.90-5.00) X 10*3/uL Eosinophils # 0 L (0.04-0.35) X 10*3/uL POC Glucose (mg/dL) 224 H (70-110) mg/dL Assessment and Plan Plan: Worsening shortness of breath, likely related to acute exacerbation of chronic obstructive pulmonary disease, and acute purulent bronchitis Underlying history of COPD Underlying history of chronic hypoxic respiratory failure maintained on home oxygen Underlying history of congestive heart failure Underlying history of atrial fibrillation patient is maintained on Eliquis, heart rate is well-controlled Underlying history of depression and anxiety disorder Underlying history of gastroesophageal reflux disease At this time patient is admitted to medical floor She was started on IV antibiotics, IV steroids and inhaled bronchodilators Will check echo cardiogram Consult pulmonary Home medications reviewed and reordered For DVT prophylaxis patient is on Eliquis
[2022-05-20 16:11] LABS: Glucose,Whole Blood 324 mg/dL (70-110)
--- NOTE | 2022-05-20 16:47 | P.PN ---
Subjective Progress Note Date: 05/20/22 89-year-old female patient with a multitude of complaints including shortness of breath, increased cough and congestion and chest that is a wheezing which is part of her routine COPD exacerbation as the patient is known to have severe COPD with an FEV1 of 49% of predicted and she is home oxygen dependent at 2 L/m nasal cannula. At the same time, the patient is complaining of back pain mainly in her lower back, radiating to her buttocks bilaterally and some limited extension to her legs. No motor weakness in lower oximetry is bilaterally. She is known to have multiple comorbid conditions including history of atrial fibrillation, chronic diastolic heart failure, diabetes mellitus type 2, hypertension hyperlipidemia and obstructive sleep apnea and the patient does not utilizes CPAP device. The patient has hypothyroidism, and the patient has had previous ESBL producing urine checked infections along with chronic anxiety and depression. During this current admission, the patient had a white cell count of 6.6 with a hemoglobin of 12.6, sodium 140, BUN of 18 with a creatinine of 0.7, normal LFTs, normal electrolytes. The chest x-ray shows COPD, some interstitial coarse densities in the lung bases bilaterally. No consolidation or airspace disease. She is awake and alert. She is communicating. No altered mentation. Denies having any significant chest pain. Her most recent computed tomography scan of the chest that was done with contrast back in October 2021 showed a moderate-sized right-sided pleural effusion and some atelectatic changes in the right lung base. Note that the subnormality recovered on subsequent x-rays. The patient did not receive any thoracentesis. The most recent echocardiogram that was on this patient was from 02/19/2020 and it showed a preserved LV funct ion, moderate concentric LVH and hypertensive heart disease. Mild to moderate pulmonary hypertension. No significant valvular abnormalities. The patient is seen today 05/19/2022 in follow-up on the regular medical floor. She is currently sitting up at the bedside. Awake and alert in no acute distress. No worsening shortness of breath, cough or congestion. She is still having mainly complains of low back pain. She is maintaining O2 saturations in the 90s on 3 L/m per nasal cannula. Afebrile. Blood glucose 273. Chronic virus by PCR not detected. Influenza screen negative. RSV negative. Procalcitonin 0.03. She is continued on DuoNeb inhalations, IV Solu-Medrol. Antibiotics in the form of ceftriaxone and azithromycin. Anticoagulated with Eliquis. Remains on oral diuretics. 05/20/2022, the patient is improving. The patient remains on oxygen and the patient is currently on 3 L O2 nasal cannula. She has no other new complaints for now. Less short of breath. No nausea or vomiting or diarrhea and abdominal pain. Afebrile. No other significant events overnight. Fluid balance has been collected activity. The patient has a serum bicarb of 37 with a sodium level of 45. He is at 70 with a creatinine of 0.6. The white cell count is at 8 point now with a hemoglobin of 12.4 and platelet count of 264. She remains on bronchodilators. Remains on IV Solu-Medrol dose of 20 mg every 8 hours. She is also on oral Lasix 40 mg by mouth daily. Objective - Vital Signs Vital signs: Vital Signs Temp 98.0 F 05/20/22 14:00 Pulse 107 H 05/20/22 14:00 Resp 18 05/20/22 14:00 BP 131/73 05/20/22 14:00 Pulse Ox 95 05/20/22 14:00 FiO2 Intake & Output 05/19/22 05/20/22 05/20/22 18:59 06:59 18:59 Intake Total 300 Output Total 600 Balance -300 Intake: Oral 300 Output: Urine 600 Other: Voiding Method Bedside Commode Bedside Commode Diaper Diaper # Voids 1 - Exam GENERAL EXAM: Alert, very pleasant, 89-year-old female in 2 L of oxygen, comfortable in no apparent distress. HEAD: Normocephalic/atraumatic. EYES: Normal reaction of pupils, equal size. Conjunctiva pink, sclera white. NOSE: Clear with pink turbinates. THROAT: No erythema or exudates. NECK: No masses, no JVD, no thyroid enlargement, no adenopathy. CHEST: No chest wall deformity. Symmetrical expansion. LUNGS: Equal air entry with few scattered rhonchi. CVS: Regular rate and rhythm, normal S1 and S2, no gallops, no murmurs, no rubs ABDOMEN: Soft, nontender. No hepatosplenomegaly, normal bowel sounds, no gua rding or rigidity. EXTREMITIES: No clubbing, no edema, no cyanosis, 2+ pulses and upper and lower extremities. MUSCULOSKELETAL: Muscle strength and tone normal. SPINE: No scoliosis or deformity SKIN: No rashes CENTRAL NERVOUS SYSTEM: No focal deficits, tone is normal in all 4 extremities. PSYCHIATRIC: Alert and oriented -3. Appropriate affect. Intact judgment and insight. - Labs CBC & Chem 7: 05/20/22 06:18 05/20/22 06:18 Labs: Abnormal Lab Results - Last 24 Hours (Table) 05/19/22 05/20/22 05/20/22 Range/Units 20:56 06:00 06:18 MCHC 30.4 L (32.0-37.0) g/dL Immature Gran # 0.06 H (0.00-0.04) X 10*3/uL Neutrophils # 7.78 H (1.80-7.70) X 10*3/uL Lymphocytes # 0.77 L (0.90-5.00) X 10*3/uL Eosinophils # 0 L (0.04-0.35) X 10*3/uL Carbon Dioxide (20.0-27.5) mmol/L Anion Gap (10.00-18.00) mmol/L BUN/Creatinine Ratio (12.00-20.00) Ratio Glucose (70-110) mg/dL POC Glucose (mg/dL) 161 H 224 H (70-110) mg/dL 05/20/22 05/20/22 05/20/22 Range/Units 06:18 11:46 16:09 MCHC (32.0-37.0) g/dL Immature Gran # (0.00-0.04) X 10*3/uL Neutrophils # (1.80-7.70) X 10*3/uL Lymphocytes # (0.90-5.00) X 10*3/uL Eosinophils # (0.04-0.35) X 10*3/uL Carbon Dioxide 37.9 H (20.0-27.5) mmol/L Anion Gap 7.00 L (10.00-18.00) mmol/L BUN/Creatinine Ratio 28.05 H (12.00-20.00) Ratio Glucose 201 H (70-110) mg/dL POC Glucose (mg/dL) 195 H 324 H (70-110) mg/dL Assessment and Plan Assessment: Acute exacerbation of COPD, no evidence of pneumonia. Pro-calcitonin 0.03. Some limited course interstitial changes lung bases bilaterally. Clinically improving. The bronchodilators and steroids and Solu-Medrol Chronic COPD with hypoxic respiratory failure, FEV1 of 49% of predicted and the patient has been on home O2 History of right-sided pleural effusion, recovered on subsequent chest x-rays and attempted right-sided thoracentesis however there was no fluid to be removed chronic diastolic CHF and hypertensive heart disease with concentric LVH, remains on diuretics and oral Lasix COPD with baseline FEV1 of 49% of predicted with chronic hypoxic respiratory failure on home oxygen at 2 L Recent reported history of left knee surgery, the details are not available to us obstructive sleep apnea History of morbid obesity diabetes multiple's type II History of degenerative disc disease GERD hypertension Hyperlipidemia Chronic A. fib on Eliquis Chronic pain History of CVA/TIA Plan: Continue same treatment Continue bronchodilators Low-dose steroids Continue low-dose steroids, bronchodilators, Robitussin Remains on Eliquis for anticoagulation Titrate the FiO2 as tolerated We will continue to follow
[2022-05-20 19:25] LABS: Glucose,Whole Blood 286 mg/dL (70-110)
[2022-05-20] MEDS ORDERED: IPRATROPIUM-ALBUTEROL 3 ML NEB INHALATION PRN (21:02)
[2022-05-20 22:28] LABS: Glucose,Whole Blood 177 mg/dL (70-110)
[2022-05-21] MEDS: methylPREDNISolone SOD SUCCI 40 MG/ML 1 ML VIAL IV SCH ×3 (01:15→16:38)
[2022-05-21 05:50] LABS: Glucose,Whole Blood 219 mg/dL (70-110)
[2022-05-21] MEDS: PANTOPRAZOLE 40 MG TABLET PO SCH ×2 (06:46→09:25)
[2022-05-21] MEDS: LEVOTHYROXINE 75 MCG TAB PO SCH (06:46)
[2022-05-21] MEDS: INSULIN ASPART (NovoLOG) 100 UNIT/ML VIAL SQ SCH ×4 (06:47→21:11)
[2022-05-21] MEDS: IPRATROPIUM-ALBUTEROL 3 ML NEB INHALATION SCH ×4 (08:39→20:06)
[2022-05-21] MEDS: APIXABAN 2.5 MG TABLET PO SCH ×2 (09:25→20:46)
[2022-05-21] MEDS: MULTIVITAMINS, THERA 1 EACH TAB PO SCH (09:25)
[2022-05-21] MEDS: DILTIAZEM CD 240 MG CAP.ER.24H PO SCH (09:25)
[2022-05-21] MEDS: MEMANTINE 5 MG TAB PO SCH ×2 (09:25→20:46)
[2022-05-21] MEDS: FUROSEMIDE 40 MG TAB PO SCH (09:25)
[2022-05-21] MEDS: DAPAGLIFLOZIN PROPANEDIOL 5 MG TABLET PO SCH (09:25)
[2022-05-21] MEDS: guaiFENesin-Coden 100-10MG/5ML 10 ML CUP PO PRN ×2 (11:17→21:14)
[2022-05-21 11:59] LABS: Glucose,Whole Blood 210 mg/dL (70-110)
[2022-05-21] MEDS ORDERED: FUROSEMIDE 10 MG/ML 4 ML VIAL IV STA (12:24)
--- NOTE | 2022-05-21 14:11 | P.PN ---
Subjective Progress Note Date: 05/21/22 Joyce Davis, is an 89-year-old female who presented to [facility] emergency room with a chief complaint of worsening shortness of breath She was evaluated in the emergency room vital examination on presentation revealed a temperature of 98.8 pulse 82 respiration 16 blood pressure 120/92 pulse ox 96% on 2 L nasal cannula Laboratory data revealed a white blood count of 6.2 hemoglobin 12.8 platelet count 177 sodium 136 potassium 4.3 chloride 93 CO2 35 BUN 19 creatinine 0.68 troponin level less than 0.012 Testing in the emergency room revealed chest x-ray done in the emergency room revealed interstitial pulmonary fibrotic changes, EKG done in the emergency room revealed atrial fibrillation Patient was admitted to medical floor for further evaluation and treatment. On 05/18/2022 patient was seen and examined on the medical floor she is alert and oriented 3 in no apparent distress she is still complaining of cough and shortness of breath otherwise she denies any complaints there is no fever or chills no headache or dizziness no chest pain no nausea or vomiting no abdominal pain no diarrhea and no urinary symptoms. Family member called our office today and stated that patient can get psychosis and had loose induration with the use of Solu-Medrol, at this time I am going to decrease the dose to 20 mg every 8 hours Continue with IV antibiotics, continue with inhaled bronchodilators Will follow in a.m. On 05/19/2022 patient is alert and oriented 3. Patient reports improvement with shortness of breath and coughing. Patient remains on IV steroids. Patient denies chest pain. Patient denies nausea vomiting or diarrhea. Patient denies any urinary burning or frequency On 05/20/2022 patient was seen and examined on the medical floor she is alert and oriented 3 she is still complaining of shortness of breath and cough otherwise she denies any complaints there is no fever or chills no headache or dizziness no chest pain, no nausea or vomiting no abdominal pain no diarrhea and no urinary symptoms On 05/21/2022 patient's alert and oriented 3. Patient still complaining of some shortness of breath and congestion will add Flonase. Will order repeat chest x-ray in a.m. to assess for possible discharge tomorrow. Patient denies chest pain. Patient denies nausea vomiting or diarrhea. Patient denies any urinary burning or frequency Objective - Vital Signs Vital signs: Vital Signs Temp 97.6 F 05/21/22 08:00 Pulse 74 05/21/22 12:19 Resp 18 05/21/22 08:40 BP 151/80 05/21/22 08:00 Pulse Ox 97 05/21/22 08:00 FiO2 Intake & Output 05/20/22 05/21/22 05/21/22 18:59 06:59 18:59 Output Total 200 Balance -200 Output: Urine 200 Other: Voiding Method Bedside Commode Diaper # Voids 4 4 1 # Bowel Movements 1 - Exam Joyce Davis, is an 89-year-old female who presented to [facility] emergency room with a chief complaint of worsening shortness of breath She was evaluated in the emergency room vital examination on presentation revealed a temperature of 98.8 pulse 82 respiration 16 blood pressure 120/92 pulse ox 96% on 2 L nasal cannula Laboratory data revealed a white blood count of 6.2 hemoglobin 12.8 platelet count 177 sodium 136 potassium 4.3 chloride 93 CO2 35 BUN 19 creatinine 0.68 troponin level less than 0.012 Testing in the emergency room revealed chest x-ray done in the emergency room revealed interstitial pulmonary fibrotic changes, EKG done in the emergency room revealed atrial fibrillation Patient was admitted to medical floor for further evaluation and treatment. - Labs CBC & Chem 7: 05/20/22 06:18 05/20/22 06:18 Labs: Abnormal Lab Results - Last 24 Hours (Table) 05/20/22 05/20/22 05/20/22 Range/Units 16:09 19:24 22:26 POC Glucose (mg/dL) 324 H 286 H 177 H (70-110) mg/dL 05/21/22 05/21/22 Range/Units 05:49 11:56 POC Glucose (mg/dL) 219 H 210 H (70-110) mg/dL Assessment and Plan Plan: Worsening shortness of breath, likely related to acute exacerbation of chronic obstructive pulmonary disease, and acute purulent bronchitis Underlying history of COPD Underlying history of chronic hypoxic respiratory failure maintained on home oxygen Underlying history of congestive heart failure Underlying history of atrial fibrillation patient is maintained on Eliquis, heart rate is well-controlled Underlying history of depression and anxiety disorder Underlying history of gastroesophageal reflux disease At this time patient is admitted to medical floor She was started on IV antibiotics, IV steroids and inhaled bronchodilators Will check echo cardiogram Consult pulmonary Home medications reviewed and reordered For DVT prophylaxis patient is on Eliquis
[2022-05-21 16:44] LABS: Glucose,Whole Blood 270 mg/dL (70-110)
--- NOTE | 2022-05-21 16:53 | P.PN ---
Subjective Progress Note Date: 05/21/22 89-year-old female patient with a multitude of complaints including shortness of breath, increased cough and congestion and chest that is a wheezing which is part of her routine COPD exacerbation as the patient is known to have severe COPD with an FEV1 of 49% of predicted and she is home oxygen dependent at 2 L/m nasal cannula. At the same time, the patient is complaining of back pain mainly in her lower back, radiating to her buttocks bilaterally and some limited extension to her legs. No motor weakness in lower oximetry is bilaterally. She is known to have multiple comorbid conditions including history of atrial fibrillation, chronic diastolic heart failure, diabetes mellitus type 2, hypertension hyperlipidemia and obstructive sleep apnea and the patient does not utilizes CPAP device. The patient has hypothyroidism, and the patient has had previous ESBL producing urine checked infections along with chronic anxiety and depression. During this current admission, the patient had a white cell count of 6.6 with a hemoglobin of 12.6, sodium 140, BUN of 18 with a creatinine of 0.7, normal LFTs, normal electrolytes. The chest x-ray shows COPD, some interstitial coarse densities in the lung bases bilaterally. No consolidation or airspace disease. She is awake and alert. She is communicating. No altered mentation. Denies having any significant chest pain. Her most recent computed tomography scan of the chest that was done with contrast back in October 2021 showed a moderate-sized right-sided pleural effusion and some atelectatic changes in the right lung base. Note that the subnormality recovered on subsequent x-rays. The patient did not receive any thoracentesis. The most recent echocardiogram that was on this patient was from 02/19/2020 and it showed a preserved LV funct ion, moderate concentric LVH and hypertensive heart disease. Mild to moderate pulmonary hypertension. No significant valvular abnormalities. The patient is seen today 05/19/2022 in follow-up on the regular medical floor. She is currently sitting up at the bedside. Awake and alert in no acute distress. No worsening shortness of breath, cough or congestion. She is still having mainly complains of low back pain. She is maintaining O2 saturations in the 90s on 3 L/m per nasal cannula. Afebrile. Blood glucose 273. Chronic virus by PCR not detected. Influenza screen negative. RSV negative. Procalcitonin 0.03. She is continued on DuoNeb inhalations, IV Solu-Medrol. Antibiotics in the form of ceftriaxone and azithromycin. Anticoagulated with Eliquis. Remains on oral diuretics. 05/20/2022, the patient is improving. The patient remains on oxygen and the patient is currently on 3 L O2 nasal cannula. She has no other new complaints for now. Less short of breath. No nausea or vomiting or diarrhea and abdominal pain. Afebrile. No other significant events overnight. Fluid balance has been collected activity. The patient has a serum bicarb of 37 with a sodium level of 45. He is at 70 with a creatinine of 0.6. The white cell count is at 8 point now with a hemoglobin of 12.4 and platelet count of 264. She remains on bronchodilators. Remains on IV Solu-Medrol dose of 20 mg every 8 hours. She is also on oral Lasix 40 mg by mouth daily. On 05/21/2022, patient is gradually improving. Probably slightly subsided. No chest pain. No altered mentation. Remains on IV Solu-Medrol. He remains on DuoNeb nebulized treatments [id number]. No chest pain. No altered mentation. No other complaints otherwise for now. No new labs Objective - Vital Signs Vital signs: Vital Signs Temp 97.9 F 05/21/22 14:00 Pulse 81 05/21/22 14:00 Resp 18 05/21/22 14:00 BP 118/72 05/21/22 14:00 Pulse Ox 95 05/21/22 14:00 FiO2 Intake & Output 05/20/22 05/21/22 05/21/22 18:59 06:59 18:59 Output Total 200 Balance -200 Output: Urine 200 Other: Voiding Method Bedside Commode Diaper # Voids 4 4 1 # Bowel Movements 1 - Exam GENERAL EXAM: Alert, very pleasant, 89-year-old female in 2 L of oxygen, comfortable in no apparent distress. HEAD: Normocephalic/atraumatic. EYES: Normal reaction of pupils, equal size. Conjunctiva pink, sclera white. NOSE: Clear with pink turbinates. THROAT: No erythema or exudates. NECK: No masses, no JVD, no thyroid enlargement, no adenopathy. CHEST: No chest wall deformity. Symmetrical expansion. LUNGS: Equal air entry with few scattered rhonchi. CVS: Regular rate and rhythm, normal S1 and S2, no gallops, no murmurs, no rubs ABDOMEN: Soft, nontender. No hepatosplenomegaly, normal bowel sounds, no guarding or rigidity. EXTREMITIES: No clubbing, no edema, no cyanosis, 2+ pulses and upper and lower extremities. MUSCULOSKELETAL: Muscle strength and tone normal. SPINE: No scoliosis or deformity SKIN: No rashes CENTRAL NERVOUS SYSTEM: No focal deficits, tone is normal in all 4 extremities. PSYCHIATRIC: Alert and oriented -3. Appropriate affect. Intact judgment and insight. - Labs CBC & Chem 7: 05/20/22 06:18 05/20/22 06:18 Labs: Abnormal Lab Results - Last 24 Hours (Table) 05/20/22 05/20/22 05/21/22 Range/Units 19:24 22:26 05:49 POC Glucose (mg/dL) 286 H 177 H 219 H (70-110) mg/dL 05/21/22 05/21/22 Range/Units 11:56 16:42 POC Glucose (mg/dL) 210 H 270 H (70-110) mg/dL Assessment and Plan Assessment: Acute exacerbation of COPD, no evidence of pneumonia. Pro-calcitonin 0.03. Some limited course interstitial changes lung bases bilaterally. Clinically improving. The bronchodilators and steroids and Solu-Medrol and the patient is slowly improving Chronic COPD with hypoxic respiratory failure, FEV1 of 49% of predicted and the patient has been on home O2 History of right-sided pleural effusion, recovered on subsequent chest x-rays and attempted right-sided thoracentesis however there was no fluid to be removed chronic diastolic CHF and hypertensive heart disease with concentric LVH, remains on diuretics and oral Lasix COPD with baseline FEV1 of 49% of predicted with chronic hypoxic respiratory failure on home oxygen at 2 L Recent reported history of left knee surgery, the details are not available to us obstructive sleep apnea History of morbid obesity diabetes multiple's type II History of degenerative disc disease GERD hypertension Hyperlipidemia Chronic A. fib on Eliquis Chronic pain History of CVA/TIA Plan: Slow but ongoing improvement Continue same treatment Continue bronchodilators Low-dose steroids with Solu-Medrol 20 mg every 8 hours Continue low-dose steroids, bronchodilators, Robitussin Remains on Eliquis for anticoagulation Titrate the FiO2 as tolerated We will continue to follow
--- NOTE | 2022-05-21 17:46 | XR ---
EXAMINATION TYPE: XR chest 2V DATE OF EXAM: 05/21/2022 COMPARISON: 05/16/2022 HISTORY: Short of breath TECHNIQUE: 2 views FINDINGS: There is some mild blunting of the costophrenic angles. There is mild linear density at the lung bases. No heart failure. Heart is top normal in size. The bony thorax is intact. IMPRESSION: There is some pleural reaction and scarring at the lung bases slightly increased compared to the old exam. No heart failure. There is clearing of the pulmonary congestion compared to old exa m.
[2022-05-21 20:30] LABS: Glucose,Whole Blood 149 mg/dL (70-110)
[2022-05-21] MEDS: HYDROcodone/APAP 7.5-325MG 1 EACH TAB PO PRN (20:46)
[2022-05-22] MEDS: methylPREDNISolone SOD SUCCI 40 MG/ML 1 ML VIAL IV SCH ×5 (00:03→23:10)
[2022-05-22] MEDS: HYDROcodone/APAP 7.5-325MG 1 EACH TAB PO PRN ×2 (02:28→09:47)
[2022-05-22 06:18] LABS: Glucose,Whole Blood 149 mg/dL (70-110)
[2022-05-22] MEDS: INSULIN ASPART (NovoLOG) 100 UNIT/ML VIAL SQ SCH ×4 (06:23→20:35)
[2022-05-22] MEDS: LEVOTHYROXINE 75 MCG TAB PO SCH (06:25)
[2022-05-22] MEDS: PANTOPRAZOLE 40 MG TABLET PO SCH (06:25)
[2022-05-22] MEDS: IPRATROPIUM-ALBUTEROL 3 ML NEB INHALATION SCH ×4 (08:29→19:57)
[2022-05-22] MEDS: DAPAGLIFLOZIN PROPANEDIOL 5 MG TABLET PO SCH (09:11)
[2022-05-22] MEDS: DILTIAZEM CD 240 MG CAP.ER.24H PO SCH (09:11)
[2022-05-22] MEDS: APIXABAN 2.5 MG TABLET PO SCH ×2 (09:11→20:35)
[2022-05-22] MEDS: MULTIVITAMINS, THERA 1 EACH TAB PO SCH (09:11)
[2022-05-22] MEDS: MEMANTINE 5 MG TAB PO SCH ×2 (09:11→20:35)
[2022-05-22] MEDS: FLUTICASONE 50MCG/SPRAY NASAL 16GM EA NOSTRIL SCH (09:11)
[2022-05-22] MEDS: FUROSEMIDE 40 MG TAB PO SCH (09:11)
[2022-05-22 11:34] LABS: Glucose,Whole Blood 272 mg/dL (70-110)
[2022-05-22 13:09] LABS: Basophils # (A) 0.03 X 10*3/uL (0.00-0.10); Basophils % (A) 0.2 %; Eosinophils # (A) 0.01 X 10*3/uL (0.04-0.35); Eosinophils % (A) 0.1 %; HCT 44.3 % (37.2-46.3); HGB 13.8 g/dL (12.0-15.0); Lymphocytes # (A) 1.85 X 10*3/uL (0.90-5.00); Lymphocytes % (A) 14.8 %; MCH 28.4 pg (27.0-32.0); MCHC 31.2 g/dL (32.0-37.0); MCV 91.2 fL (80.0-97.0); Mean Platelet Volume 9.9 fL (9.5-12.2); Monocytes # (A) 0.71 X 10*3/uL (0.20-1.00); Monocytes % (A) 5.7 %; NRBC Per 100 WBC 0 /100 WBCS (0.0-0.0); Neutrophils # (A) 9.75 X 10*3/uL (1.80-7.70); Neutrophils % (A) 78.2 %; Platelet Count 318 X 10*3/uL (140-440); RBC 4.86 X 10*6/uL (4.10-5.20); RDW 14.3 % (11.5-14.5); WBC 12.48 X 10*3/uL (4.50-10.00)
[2022-05-22 14:12] LABS: African American GFR (CKD) 93.7 (60.0-200.0); Albumin 3.8 g/dL (3.8-4.9); Albumin/Globulin Ratio 1.65 (1.60-3.17); Anion Gap 9.8 mmol/L (10.00-18.00); Blood Urea Nitrogen 25.8 mg/dL (9.0-27.0); Calcium 9.2 mg/dL (8.7-10.3); Carbon Dioxide 36.2 mmol/L (20.0-27.5); Globulin 2.3 g/dL (1.6-3.3); Non-African American GFR(CKD) 80.8 (60.0-200.0); Potassium 4.1 mmol/L (3.5-5.5); Total Bilirubin 0.5 mg/dL (0.30-1.20); Total Protein 6.1 g/dL (6.2-8.2)
--- NOTE | 2022-05-22 15:48 | P.PN ---
Subjective Progress Note Date: 05/22/22 Joyce Davis, is an 89-year-old female who presented to [facility] emergency room with a chief complaint of worsening shortness of breath She was evaluated in the emergency room vital examination on presentation revealed a temperature of 98.8 pulse 82 respiration 16 blood pressure 120/92 pulse ox 96% on 2 L nasal cannula Laboratory data revealed a white blood count of 6.2 hemoglobin 12.8 platelet count 177 sodium 136 potassium 4.3 chloride 93 CO2 35 BUN 19 creatinine 0.68 troponin level less than 0.012 Testing in the emergency room revealed chest x-ray done in the emergency room revealed interstitial pulmonary fibrotic changes, EKG done in the emergency room revealed atrial fibrillation Patient was admitted to medical floor for further evaluation and treatment. On 05/18/2022 patient was seen and examined on the medical floor she is alert and oriented 3 in no apparent distress she is still complaining of cough and shortness of breath otherwise she denies any complaints there is no fever or chills no headache or dizziness no chest pain no nausea or vomiting no abdominal pain no diarrhea and no urinary symptoms. Family member called our office today and stated that patient can get psychosis and had loose induration with the use of Solu-Medrol, at this time I am going to decrease the dose to 20 mg every 8 hours Continue with IV antibiotics, continue with inhaled bronchodilators Will follow in a.m. On 05/19/2022 patient is alert and oriented 3. Patient reports improvement with shortness of breath and coughing. Patient remains on IV steroids. Patient denies chest pain. Patient denies nausea vomiting or diarrhea. Patient denies any urinary burning or frequency On 05/20/2022 patient was seen and examined on the medical floor she is alert and oriented 3 she is still complaining of shortness of breath and cough otherwise she denies any complaints there is no fever or chills no headache or dizziness no chest pain, no nausea or vomiting no abdominal pain no diarrhea and no urinary symptoms On 05/21/2022 patient's alert and oriented 3. Patient still complaining of some shortness of breath and congestion will add Flonase. Will order repeat chest x-ray in a.m. to assess for possible discharge tomorrow. Patient denies chest pain. Patient denies nausea vomiting or diarrhea. Patient denies any urinary burning or frequency On 05/22/2022 patient was seen and examined on the medical floor she is alert and oriented 3 in no apparent distress she reports improvement in cough and shortness of breath otherwise she denies any complaints there is no fever or chills no headache or dizziness no chest pain no nausea or vomiting no abdominal pain no diarrhea and no urinary symptoms Objective - Vital Signs Vital signs: Vital Signs Temp 97.9 F 05/22/22 14:00 Pulse 96 05/22/22 15:30 Resp 18 05/22/22 14:00 BP 112/70 05/22/22 15:30 Pulse Ox 97 05/22/22 15:30 FiO2 Intake & Output 05/21/22 05/22/22 05/22/22 18:59 06:59 18:59 Intake Total 360 960 Output Total 1000 Balance -640 960 Intake: Oral 360 960 Output: Urine 1000 Other: Voiding Method Bedside Commode Bedside Commode Diaper Diaper # Voids 1 2 # Bowel Movements 1 - Exam Joyce Davis, is an 89-year-old female who presented to [facility] emergency room with a chief complaint of worsening shortness of breath She was evaluated in the emergency room vital examination on presentation revealed a temperature of 98.8 pulse 82 respiration 16 blood pressure 120/92 pulse ox 96% on 2 L nasal cannula Laboratory data revealed a white blood count of 6.2 hemoglobin 12.8 platelet count 177 sodium 136 potassium 4.3 chloride 93 CO2 35 BUN 19 creatinine 0.68 troponin level less than 0.012 Testing in the emergency room revealed chest x-ray done in the emergency room revealed interstitial pulmonary fibrotic changes, EKG done in the emergency room revealed atrial fibrillation Patient was admitted to medical floor for further evaluation and treatment. - Labs CBC & Chem 7: 05/22/22 07:25 05/22/22 07:25 Labs: Abnormal Lab Results - Last 24 Hours (Table) 05/21/22 05/21/22 05/22/22 Range/Units 16:42 20:28 06:16 WBC (4.50-10.00) X 10*3/uL MCHC (32.0-37.0) g/dL Immature Gran # (0.00-0.04) X 10*3/uL Neutrophils # (1.80-7.70) X 10*3/uL Eosinophils # (0.04-0.35) X 10*3/uL Carbon Dioxide (20.0-27.5) mmol/L Anion Gap (10.00-18.00) mmol/L BUN/Creatinine Ratio (12.00-20.00) Ratio Glucose (70-110) mg/dL POC Glucose (mg/dL) 270 H 149 H 149 H (70-110) mg/dL Total Protein (6.2-8.2) g/dL 05/22/22 05/22/22 05/22/22 Range/Units 07:25 07:25 11:32 WBC 12.48 H (4.50-10.00) X 10*3/uL MCHC 31.2 L (32.0-37.0) g/dL Immature Gran # 0.13 H (0.00-0.04) X 10*3/uL Neutrophils # 9.75 H (1.80-7.70) X 10*3/uL Eosinophils # 0.01 L (0.04-0.35) X 10*3/uL Carbon Dioxide 36.2 H (20.0-27.5) mmol/L Anion Gap 9.80 L (10.00-18.00) mmol/L BUN/Creatinine Ratio 43.00 H (12.00-20.00) Ratio Glucose 148 H (70-110) mg/dL POC Glucose (mg/dL) 272 H (70-110) mg/dL Total Protein 6.1 L (6.2-8.2) g/dL Assessment and Plan Plan: Worsening shortness of breath, likely related to acute exacerbation of chronic obstructive pulmonary disease, and acute purulent bronchitis Underlying history of COPD Underlying history of chronic hypoxic respiratory failure maintained on home oxygen Underlying history of congestive heart failure Underlying history of atrial fibrillation patient is maintained on Eliquis, heart rate is well-controlled Underlying history of depression and anxiety disorder Underlying history of gastroesophageal reflux disease At this time patient is admitted to medical floor She was started on IV antibiotics, IV steroids and inhaled bronchodilators Will check echo cardiogram Consult pulmonary Home medications reviewed and reordered For DVT prophylaxis patient is on Eliquis
--- NOTE | 2022-05-22 16:23 | P.PN ---
Subjective Progress Note Date: 05/22/22 89-year-old female patient with a multitude of complaints including shortness of breath, increased cough and congestion and chest that is a wheezing which is part of her routine COPD exacerbation as the patient is known to have severe COPD with an FEV1 of 49% of predicted and she is home oxygen dependent at 2 L/m nasal cannula. At the same time, the patient is complaining of back pain mainly in her lower back, radiating to her buttocks bilaterally and some limited extension to her legs. No motor weakness in lower oximetry is bilaterally. She is known to have multiple comorbid conditions including history of atrial fibrillation, chronic diastolic heart failure, diabetes mellitus type 2, hypertension hyperlipidemia and obstructive sleep apnea and the patient does not utilizes CPAP device. The patient has hypothyroidism, and the patient has had previous ESBL producing urine checked infections along with chronic anxiety and depression. During this current admission, the patient had a white cell count of 6.6 with a hemoglobin of 12.6, sodium 140, BUN of 18 with a creatinine of 0.7, normal LFTs, normal electrolytes. The chest x-ray shows COPD, some interstitial coarse densities in the lung bases bilaterally. No consolidation or airspace disease. She is awake and alert. She is communicating. No altered mentation. Denies having any significant chest pain. Her most recent computed tomography scan of the chest that was done with contrast back in October 2021 showed a moderate-sized right-sided pleural effusion and some atelectatic changes in the right lung base. Note that the subnormality recovered on subsequent x-rays. The patient did not receive any thoracentesis. The most recent echocardiogram that was on this patient was from 02/19/2020 and it showed a preserved LV funct ion, moderate concentric LVH and hypertensive heart disease. Mild to moderate pulmonary hypertension. No significant valvular abnormalities. The patient is seen today 05/19/2022 in follow-up on the regular medical floor. She is currently sitting up at the bedside. Awake and alert in no acute distress. No worsening shortness of breath, cough or congestion. She is still having mainly complains of low back pain. She is maintaining O2 saturations in the 90s on 3 L/m per nasal cannula. Afebrile. Blood glucose 273. Chronic virus by PCR not detected. Influenza screen negative. RSV negative. Procalcitonin 0.03. She is continued on DuoNeb inhalations, IV Solu-Medrol. Antibiotics in the form of ceftriaxone and azithromycin. Anticoagulated with Eliquis. Remains on oral diuretics. 05/20/2022, the patient is improving. The patient remains on oxygen and the patient is currently on 3 L O2 nasal cannula. She has no other new complaints for now. Less short of breath. No nausea or vomiting or diarrhea and abdominal pain. Afebrile. No other significant events overnight. Fluid balance has been collected activity. The patient has a serum bicarb of 37 with a sodium level of 45. He is at 70 with a creatinine of 0.6. The white cell count is at 8 point now with a hemoglobin of 12.4 and platelet count of 264. She remains on bronchodilators. Remains on IV Solu-Medrol dose of 20 mg every 8 hours. She is also on oral Lasix 40 mg by mouth daily. On 05/21/2022, patient is gradually improving. Probably slightly subsided. No chest pain. No altered mentation. Remains on IV Solu-Medrol. He remains on DuoNeb nebulized treatments [id number]. No chest pain. No altered mentation. No other complaints otherwise for now. No new labs On 05/22/2022, the patient continues to improve and on today's evaluation, she is still feeling better and she is less bronchospastic and wheezy. The patient was treated with DuoNeb neb treatments [id number]. The patient is on IV Solu-Medrol 20 mg every 8 hours. The patient remains on anticoagulation with Eliquis. Lasix is dose of 40 mg by mouth daily. She was provided incentive spirometer. No other significant events for now. Rhythm is count of 12.4 with a hemoglobin of 15.8. Sodium is at 143 with a BUN of 25 and a creatinine of 0.6. Potassium levels at 4.1. Normal LFTs. Objective - Vital Signs Vital signs: Vital Signs Temp 97.9 F 05/22/22 14:00 Pulse 96 05/22/22 15:30 Resp 18 05/22/22 14:00 BP 112/70 05/22/22 15:30 Pulse Ox 97 05/22/22 15:30 FiO2 Intake & Output 05/21/22 05/22/22 05/22/22 18:59 06:59 18:59 Intake Total 360 960 Output Total 1000 Balance -640 960 Intake: Oral 360 960 Output: Urine 1000 Other: Voiding Method Bedside Commode Bedside Commode Diaper Diaper # Voids 1 2 # Bowel Movements 1 - Exam GENERAL EXAM: Alert, very pleasant, 89-year-old female in 2 L of oxygen, comfortable in no apparent distress. HEAD: Normocephalic/atraumatic. EYES: Normal reaction of pupils, equal size. Conjunctiva pink, sclera white. NOSE: Clear with pink turbinates. THROAT: No erythema or exudates. NECK: No masses, no JVD, no thyroid enlargement, no adenopathy. CHEST: No chest wall deformity. Symmetrical expansion. LUNGS: Equal air entry with few scattered rhonchi. CVS: Regular rate and rhythm, normal S1 and S2, no gallops, no murmurs, no rubs ABDOMEN: Soft, nontender. No hepatosplenomegaly, normal bowel sounds, no guarding or rigidity. EXTREMITIES: No clubbing, no edema, no cyanosis, 2+ pulses and upper and lower extremities. MUSCULOSKELETAL: Muscle strength and tone normal. SPINE: No scoliosis or deformity SKIN: No rashes CENTRAL NERVOUS SYSTEM: No focal deficits, tone is normal in all 4 extremities. PSYCHIATRIC: Alert and oriented -3. Appropriate affect. Intact judgment and i nsight. - Labs CBC & Chem 7: 05/22/22 07:25 05/22/22 07:25 Labs: Abnormal Lab Results - Last 24 Hours (Table) 05/21/22 05/21/22 05/22/22 Range/Units 16:42 20:28 06:16 WBC (4.50-10.00) X 10*3/uL MCHC (32.0-37.0) g/dL Immature Gran # (0.00-0.04) X 10*3/uL Neutrophils # (1.80-7.70) X 10*3/uL Eosinophils # (0.04-0.35) X 10*3/uL Carbon Dioxide (20.0-27.5) mmol/L Anion Gap (10.00-18.00) mmol/L BUN/Creatinine Ratio (12.00-20.00) Ratio Glucose (70-110) mg/dL POC Glucose (mg/dL) 270 H 149 H 149 H (70-110) mg/dL Total Protein (6.2-8.2) g/dL 05/22/22 05/22/22 05/22/22 Range/Units 07:25 07:25 11:32 WBC 12.48 H (4.50-10.00) X 10*3/uL MCHC 31.2 L (32.0-37.0) g/dL Immature Gran # 0.13 H (0.00-0.04) X 10*3/uL Neutrophils # 9.75 H (1.80-7.70) X 10*3/uL Eosinophils # 0.01 L (0.04-0.35) X 10*3/uL Carbon Dioxide 36.2 H (20.0-27.5) mmol/L Anion Gap 9.80 L (10.00-18.00) mmol/L BUN/Creatinine Ratio 43.00 H (12.00-20.00) Ratio Glucose 148 H (70-110) mg/dL POC Glucose (mg/dL) 272 H (70-110) mg/dL Total Protein 6.1 L (6.2-8.2) g/dL Assessment and Plan Assessment: Acute exacerbation of COPD, no evidence of pneumonia. Pro-calcitonin 0.03. Some limited course interstitial changes lung bases bilaterally. Clinically improv ing. The bronchodilators and steroids and Solu-Medrol and the patient is slowly improving Chronic COPD with hypoxic respiratory failure, FEV1 of 49% of predicted and the patient has been on home O2 History of right-sided pleural effusion, recovered on subsequent chest x-rays and attempted right-sided thoracentesis however there was no fluid to be removed chronic diastolic CHF and hypertensive heart disease with concentric LVH, remains on diuretics and oral Lasix COPD with baseline FEV1 of 49% of predicted with chronic hypoxic respiratory failure on home oxygen at 2 L Recent reported history of left knee surgery, the details are not available to us obstructive sleep apnea History of morbid obesity diabetes multiple's type II History of degenerative disc disease GERD hypertension Hyperlipidemia Chronic A. fib on Eliquis Chronic pain History of CVA/TIA Plan: Slow but ongoing improvement, we'll continue the same treatment for now Continue DuoNeb about treatments [id number] Low-dose steroids with Solu-Medrol 20 mg every 8 hours Remains on Eliquis for anticoagulation Titrate the FiO2 as tolerated We will continue to follow
[2022-05-22 17:02] LABS: Glucose,Whole Blood 192 mg/dL (70-110)
[2022-05-22] MEDS: guaiFENesin-Coden 100-10MG/5ML 10 ML CUP PO PRN (17:47)
[2022-05-22 19:57] LABS: Glucose,Whole Blood 232 mg/dL (70-110)
[2022-05-23 06:03] LABS: Glucose,Whole Blood 222 mg/dL (70-110)
[2022-05-23] MEDS: INSULIN ASPART (NovoLOG) 100 UNIT/ML VIAL SQ SCH ×4 (06:15→21:04)
[2022-05-23] MEDS: LEVOTHYROXINE 75 MCG TAB PO SCH (06:16)
[2022-05-23 07:33] LABS: Glucose,Whole Blood 173 mg/dL (70-110)
[2022-05-23] MEDS: IPRATROPIUM-ALBUTEROL 3 ML NEB INHALATION SCH ×4 (08:34→20:14)
[2022-05-23] MEDS: guaiFENesin-Coden 100-10MG/5ML 10 ML CUP PO PRN ×2 (08:59→21:12)
[2022-05-23] MEDS: methylPREDNISolone SOD SUCCI 40 MG/ML 1 ML VIAL IV SCH ×2 (08:59→16:20)
[2022-05-23] MEDS: MEMANTINE 5 MG TAB PO SCH ×2 (09:00→21:04)
[2022-05-23] MEDS: PANTOPRAZOLE 40 MG TABLET PO SCH (09:00)
[2022-05-23] MEDS: DILTIAZEM CD 240 MG CAP.ER.24H PO SCH (09:00)
[2022-05-23] MEDS: FUROSEMIDE 40 MG TAB PO SCH (09:01)
[2022-05-23] MEDS: DAPAGLIFLOZIN PROPANEDIOL 5 MG TABLET PO SCH (09:01)
[2022-05-23] MEDS: MULTIVITAMINS, THERA 1 EACH TAB PO SCH (09:01)
[2022-05-23] MEDS: FLUTICASONE 50MCG/SPRAY NASAL 16GM EA NOSTRIL SCH (09:02)
[2022-05-23] MEDS: APIXABAN 2.5 MG TABLET PO SCH ×2 (09:02→21:04)
--- NOTE | 2022-05-23 10:49 | P.DS ---
Providers Date of admission: 05/17/22 00:11 Expected date of discharge: 05/23/22 Attending physician: Kareem Issa Consults: 05/17/22 18:31 Consult Physician Routine Consulting Provider: Ventura Aguayo Consult Reason/Comments: COPD Do you want consulting provider notified?: Yes Primary care physician: Martha Ferreira [facility] Course: Discharge diagnosis Worsening shortness of breath, likely related to acute exacerbation of chronic obstructive pulmonary disease, and acute purulent bronchitis Underlying history of COPD Underlying history of chronic hypoxic respiratory failure maintained on home oxygen Underlying history of congestive heart failure Underlying history of atrial fibrillation patient is maintained on Eliquis, heart rate is well-controlled Underlying history of depression and anxiety disorder Underlying history of gastroesophageal reflux disease Hospital course Joyce Davis, is an 89-year-old female who presented to [facility] emergency room with a chief complaint of worsening shortness of breath She was evaluated in the emergency room vital examination on presentation rev ealed a temperature of 98.8 pulse 82 respiration 16 blood pressure 120/92 pulse ox 96% on 2 L nasal cannula Laboratory data revealed a white blood count of 6.2 hemoglobin 12.8 platelet count 177 sodium 136 potassium 4.3 chloride 93 CO2 35 BUN 19 creatinine 0.68 troponin level less than 0.012 Testing in the emergency room revealed chest x-ray done in the emergency room revealed interstitial pulmonary fibrotic changes, EKG done in the emergency room revealed atrial fibrillation Patient was admitted to medical floor for further evaluation and treatment. On 05/18/2022 patient was seen and examined on the medical floor she is alert and oriented 3 in no apparent distress she is still complaining of cough and shortness of breath otherwise she denies any complaints there is no fever or chills no headache or dizziness no chest pain no nausea or vomiting no abdominal pain no diarrhea and no urinary symptoms. Family member called our office today and stated that patient can get psychosis and had loose induration with the use of Solu-Medrol, at this time I am going to decrease the dose to 20 mg every 8 hours Continue with IV antibiotics, continue with inhaled bronchodilators Will follow in a.m. On 05/19/2022 patient is alert and oriented 3. Patient reports improvement with shortness of breath and coughing. Patient remains on IV steroids. Patient denies chest pain. Patient denies nausea vomiting or diarrhea. Patient denies any urinary burning or frequency On 05/20/2022 patient was seen and examined on the medical floor she is alert and oriented 3 she is still complaining of shortness of breath and cough otherwise she denies any complaints there is no fever or chills no headache or dizziness no chest pain, no nausea or vomiting no abdominal pain no diarrhea and no urinary symptoms On 05/21/2022 patient's alert and oriented 3. Patient still complaining of some shortness of breath and congestion will add Flonase. Will order repeat chest x-ray in a.m. to assess for possible discharge tomorrow. Patient denies chest pain. Patient denies nausea vomiting or diarrhea. Patient denies any urinary burning or frequency On 05/22/2022 patient was seen and examined on the medical floor she is alert and oriented 3 in no apparent distress she reports improvement in cough and shortness of breath otherwise she denies any complaints there is no fever or chills no headache or dizziness no chest pain no nausea or vomiting no abdominal pain no diarrhea and no urinary symptoms On 05/23/2022 patient's alert and oriented 3. Reports improvement with shortness of breath and coughing does report generalized weakness. Did discuss case with pulmonary services patient has been cleared for discharge from pulmonary standpoint. Patient will be DC'd on prednisone taper patient to follow-up with PCP consulting providers for management Patient Condition at Discharge: Stable Plan - Discharge Summary Discharge Rx Participant: No New Discharge Prescriptions: New Fluticasone Nasal [place] [Flonase Nasal [place]] 2 spray EA NOSTRIL DAILY #1 dispenser predniSONE 10 mg PO DIRECTED 12 Days #9 tab Continue Apixaban [Eliquis] 2.5 mg PO BID HYDROcodone/APAP 7.5-325MG [[place] 7.5-325] 1 tab PO Q6H PRN PRN Reason: Pain Multivit-Min/FA/Lycopen/Lutein [Centrum Silver Tablet] 1 tab PO DAILY Meclizine [Antivert] 25 mg PO TID PRN PRN Reason: Vertigo Levothyroxine Sodium [Synthroid] 75 mcg PO DAILY Memantine [Namenda] 5 mg PO BID Empagliflozin [Jardiance] 10 mg PO DAILY Furosemide [Lasix] 40 mg PO DAILY dilTIAZem HCL [dilTIAZem HCL 24Hr ER] 240 mg PO DAILY Pantoprazole [Protonix] 40 mg PO AC-BRKFST tab Discontinued Sulfamethoxazole/Trimethoprim [Bactrim DS 800-160 mg] 1 tab PO BID Discharge Medication List Apixaban [Eliquis] 2.5 mg PO BID 02/14/16 [History] HYDROcodone/APAP 7.5-325MG [[place] 7.5-325] 1 tab PO Q6H PRN 02/18/20 [History] Multivit-Min/FA/Lycopen/Lutein [Centrum Silver Tablet] 1 tab PO DAILY 03/08/20 [History] Meclizine [Antivert] 25 mg PO TID PRN 08/04/20 [History] Empagliflozin [Jardiance] 10 mg PO DAILY 10/29/21 [History] Furosemide [Lasix] 40 mg PO DAILY 10/29/21 [History] Levothyroxine Sodium [Synthroid] 75 mcg PO DAILY 10/29/21 [History] Memantine [Namenda] 5 mg PO BID 10/29/21 [History] dilTIAZem HCL [dilTIAZem HCL 24Hr ER] 240 mg PO DAILY 10/29/21 [History] Pantoprazole [Protonix] 40 mg PO AC-BRKFST tab 11/05/21 [Rx] Fluticasone Nasal [place] [Flonase Nasal [place]] 2 spray EA NOSTRIL DAILY #1 dispenser 05/23/22 [Rx] predniSONE 10 mg PO DIRECTED 12 Days #9 tab 05/23/22 [Rx] Follow up Appointment(s)/Referral(s): Martha Ferreira MD [Primary Care Provider] - 1-2 days Residential Home,Health [NON-STAFF] - As Needed Activity/Diet/Wound Care/Special Instructions: Activity as tolerated Diet heart healthy Discharge Disposition: HOME SELF-CARE
[2022-05-23 11:31] LABS: Glucose,Whole Blood 358 mg/dL (70-110)
--- NOTE | 2022-05-23 14:48 | P.PN ---
Subjective Progress Note Date: 05/23/22 89-year-old female patient with a multitude of complaints including shortness of breath, increased cough and congestion and chest that is a wheezing which is part of her routine COPD exacerbation as the patient is known to have severe COPD with an FEV1 of 49% of predicted and she is home oxygen dependent at 2 L/m nasal cannula. At the same time, the patient is complaining of back pain mainly in her lower back, radiating to her buttocks bilaterally and some limited extension to her legs. No motor weakness in lower oximetry is bilaterally. She is known to have multiple comorbid conditions including history of atrial fibrillation, chronic diastolic heart failure, diabetes mellitus type 2, hypertension hyperlipidemia and obstructive sleep apnea and the patient does not utilizes CPAP device. The patient has hypothyroidism, and the patient has had previous ESBL producing urine checked infections along with chronic anxiety and depression. During this current admission, the patient had a white cell count of 6.6 with a hemoglobin of 12.6, sodium 140, BUN of 18 with a creatinine of 0.7, normal LFTs, normal electrolytes. The chest x-ray shows COPD, some interstitial coarse densities in the lung bases bilaterally. No consolidation or airspace disease. She is awake and alert. She is communicating. No altered mentation. Denies having any significant chest pain. Her most recent computed tomography scan of the chest that was done with contrast back in October 2021 showed a moderate-sized right-sided pleural effusion and some atelectatic changes in the right lung base. Note that the subnormality recovered on subsequent x-rays. The patient did not receive any thoracentesis. The most recent echocardiogram that was on this patient was from 02/19/2020 and it showed a preserved LV funct ion, moderate concentric LVH and hypertensive heart disease. Mild to moderate pulmonary hypertension. No significant valvular abnormalities. The patient is seen today 05/19/2022 in follow-up on the regular medical floor. She is currently sitting up at the bedside. Awake and alert in no acute distress. No worsening shortness of breath, cough or congestion. She is still having mainly complains of low back pain. She is maintaining O2 saturations in the 90s on 3 L/m per nasal cannula. Afebrile. Blood glucose 273. Chronic virus by PCR not detected. Influenza screen negative. RSV negative. Procalcitonin 0.03. She is continued on DuoNeb inhalations, IV Solu-Medrol. Antibiotics in the form of ceftriaxone and azithromycin. Anticoagulated with Eliquis. Remains on oral diuretics. 05/20/2022, the patient is improving. The patient remains on oxygen and the patient is currently on 3 L O2 nasal cannula. She has no other new complaints for now. Less short of breath. No nausea or vomiting or diarrhea and abdominal pain. Afebrile. No other significant events overnight. Fluid balance has been collected activity. The patient has a serum bicarb of 37 with a sodium level of 45. He is at 70 with a creatinine of 0.6. The white cell count is at 8 point now with a hemoglobin of 12.4 and platelet count of 264. She remains on bronchodilators. Remains on IV Solu-Medrol dose of 20 mg every 8 hours. She is also on oral Lasix 40 mg by mouth daily. On 05/21/2022, patient is gradually improving. Probably slightly subsided. No chest pain. No altered mentation. Remains on IV Solu-Medrol. He remains on DuoNeb nebulized treatments [id number]. No chest pain. No altered mentation. No other complaints otherwise for now. No new labs On 05/22/2022, the patient continues to improve and on today's evaluation, she is still feeling better and she is less bronchospastic and wheezy. The patient was treated with DuoNeb neb treatments [id number]. The patient is on IV Solu-Medrol 20 mg every 8 hours. The patient remains on anticoagulation with Eliquis. Lasix is dose of 40 mg by mouth daily. She was provided incentive spirometer. No other significant events for now. Rhythm is count of 12.4 with a hemoglobin of 15.8. Sodium is at 143 with a BUN of 25 and a creatinine of 0.6. Potassium levels at 4.1. Normal LFTs. 05/23/2022, no new complaints and she continues to improve. Sodium IV Solu- Medrol. She is on DuoNeb about treatments [id number]. She is feeling fatigued. No other new issues otherwise for now. Cough and congestion and chest episode wheezing subsided. Objective - Vital Signs Vital signs: Vital Signs Temp 97.3 F L 05/23/22 01:21 Pulse 100 05/23/22 12:17 Resp 16 05/23/22 08:00 BP 147/87 05/23/22 08:00 Pulse Ox 98 05/23/22 08:37 FiO2 Intake & Output 05/22/22 05/23/22 05/23/22 18:59 06:59 18:59 Intake Total 1080 500 Output Total 1 Balance 1079 500 Intake: Oral 1080 500 Output: Urine/Stool Mix 1 Other: Voiding Method Bedside Commode Bedside Commode Bedside Commode Diaper Diaper # Voids 3 2 - Exam GENERAL EXAM: Alert, very pleasant, 89-year-old female in 2 L of oxygen, comfortable in no apparent distress. HEAD: Normocephalic/atraumatic. EYES: Normal reaction of pupils, equal size. Conjunctiva pink, sclera white. NOSE: Clear with pink turbinates. THROAT: No erythema or exudates. NECK: No masses, no JVD, no thyroid enlargement, no adenopathy. CHEST: No chest wall deformity. Symmetrical expansion. LUNGS: Equal air entry with few scattered rhonchi. CVS: Regular rate and rhythm, normal S1 and S2, no gallops, no murmurs, no rubs ABDOMEN: Soft, nontender. No hepatosplenomegaly, normal bowel sounds, no guarding or rigidity. EXTREMITIES: No clubbing, no edema, no cyanosis, 2+ pulses and upper and lower extremities. MUSCULOSKELETAL: Muscle strength and tone normal. SPINE: No scoliosis or deformity SKIN: No rashes CENTRAL NERVOUS SYSTEM: No focal deficits, tone is normal in all 4 extremities. PSYCHIATRIC: Alert and oriented -3. Appropriate affect. Intact judgment and insight. - Labs CBC & Chem 7: 05/22/22 07:25 05/22/22 07:25 Labs: Abnormal Lab Results - Last 24 Hours (Table) 05/22/22 05/22/22 05/23/22 Range/Units 17:01 19:55 06:02 POC Glucose (mg/dL) 192 H 232 H 222 H (70-110) mg/dL 05/23/22 05/23/22 Range/Units 07:31 11:23 POC Glucose (mg/dL) 173 H 358 H (70-110) mg/dL Assessment and Plan Assessment: Acute exacerbation of COPD, no evidence of pneumonia. Pro-calcitonin 0.03. Some limited course interstitial changes lung bases bilaterally. Clinically improving. The bronchodilators and steroids and Solu-Medrol and the patient is slowly improving Chronic COPD with hypoxic respiratory failure, FEV1 of 49% of predicted and the patient has been on home O2 History of right-sided pleural effusion, recovered on subsequent chest x-rays and attempted right-sided thoracentesis however there was no fluid to be removed chronic diastolic CHF and hypertensive heart disease with concentric LVH, remains on diuretics and oral Lasix COPD with baseline FEV1 of 49% of predicted with chronic hypoxic respiratory failure on home oxygen at 2 L Recent reported history of left knee surgery, the details are not available to us obstructive sleep apnea History of morbid obesity diabetes multiple's type II History of degenerative disc disease GERD hypertension Hyperlipidemia Chronic A. fib on Eliquis Chronic pain History of CVA/TIA Plan: Clinically improving Prednisone burst taper Continue DuoNeb about treatments [id number] Remains on Eliquis for anticoagulation Titrate the FiO2 as tolerated We will continue to follow Discharge from medicine. Pulmonary we'll sign off
[2022-05-23 16:22] LABS: Glucose,Whole Blood 251 mg/dL (70-110)
[2022-05-23] MEDS: HYDROcodone/APAP 7.5-325MG 1 EACH TAB PO PRN (18:56)
[2022-05-23 20:58] LABS: Glucose,Whole Blood 244 mg/dL (70-110)
[2022-05-24] MEDS: methylPREDNISolone SOD SUCCI 40 MG/ML 1 ML VIAL IV SCH ×2 (00:05→08:35)
[2022-05-24 00:14] LABS: Glucose,Whole Blood 280 mg/dL (70-110)
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
[2022-05-24] MEDS: PANTOPRAZOLE 40 MG TABLET PO SCH (06:35)
[2022-05-24] MEDS: LEVOTHYROXINE 75 MCG TAB PO SCH (06:35)
[2022-05-24 06:39] LABS: Glucose,Whole Blood 260 mg/dL (70-110)
[2022-05-24] MEDS: INSULIN ASPART (NovoLOG) 100 UNIT/ML VIAL SQ SCH ×2 (06:48→12:17)
[2022-05-24] MEDS: IPRATROPIUM-ALBUTEROL 3 ML NEB INHALATION SCH ×3 (07:45→15:11)
[2022-05-24 07:48] VITALS: RESP 16
[2022-05-24] MEDS: MEMANTINE 5 MG TAB PO SCH (08:35)
[2022-05-24] MEDS: DAPAGLIFLOZIN PROPANEDIOL 5 MG TABLET PO SCH (08:35)
[2022-05-24] MEDS: MULTIVITAMINS, THERA 1 EACH TAB PO SCH (08:35)
[2022-05-24] MEDS: APIXABAN 2.5 MG TABLET PO SCH (08:35)
[2022-05-24] MEDS: FUROSEMIDE 40 MG TAB PO SCH (08:35)
[2022-05-24] MEDS: DILTIAZEM CD 240 MG CAP.ER.24H PO SCH (08:35)
[2022-05-24] MEDS: HYDROcodone/APAP 7.5-325MG 1 EACH TAB PO PRN ×2 (08:38→15:57)
[2022-05-24] MEDS: FLUTICASONE 50MCG/SPRAY NASAL 16GM EA NOSTRIL SCH (08:43)
[2022-05-24 11:48] LABS: Glucose,Whole Blood 254 mg/dL (70-110)
[2022-05-24 12:51] VITALS: BMI 32.5
[2022-05-24 14:41] VITALS: BP 103/68; TEMP 97.5
--- NOTE | 2022-05-24 15:09 | P.DS ---
Providers Date of admission: 05/17/22 00:11 Expected date of discharge: 05/24/22 Attending physician: Kareem Issa Consults: 05/17/22 18:31 Consult Physician Routine Consulting Provider: Ventura Aguayo Consult Reason/Comments: COPD Do you want consulting provider notified?: Yes 05/23/22 14:10 Consult Physician Routine Consulting Provider: Perry Sesay Consult Reason/Comments: possible rehab admission Do you want consulting provider notified?: Yes Primary care physician: Martha Ferreira Hospital Course: Diagnosis on discharge: Worsening shortness of breath, likely related to acute exacerbation of chronic obstructive pulmonary disease, and acute purulent bronchitis Underlying history of COPD Underlying history of chronic hypoxic respiratory failure maintained on home oxygen Underlying history of congestive heart failure Underlying history of atrial fibrillation patient is maintained on Eliquis, heart rate is well-controlled Underlying history of depression and anxiety disorder Underlying history of gastroesophageal reflux disease Hospital course: Joyce Davis, is an 89-year-old female who presented to [facility] emergency room with a chief complaint of worsening shortness of breath She was evaluated in the emergency room vital examination on presentation revealed a temperature of 98.8 pulse 82 respiration 16 blood pressure 120/92 pulse ox 96% on 2 L nasal cannula Laboratory data revealed a white blood count of 6.2 hemoglobin 12.8 platelet count 177 sodium 136 potassium 4.3 chloride 93 CO2 35 BUN 19 creatinine 0.68 troponin level less than 0.012 Testing in the emergency room revealed chest x-ray done in the emergency room revealed interstitial pulmonary fibrotic changes, EKG done in the emergency room revealed atrial fibrillation Patient was admitted to medical floor for further evaluation and treatment. On 05/18/2022 patient was seen and examined on the medical floor she is alert and oriented 3 in no apparent distress she is still complaining of cough and shortness of breath otherwise she denies any complaints there is no fever or chills no headache or dizziness no chest pain no nausea or vomiting no abdominal pain no diarrhea and no urinary symptoms. Family member called our office today and stated that patient can get psychosis and had loose induration with the use of Solu-Medrol, at this time I am going to decrease the dose to 20 mg every 8 hours Continue with IV antibiotics, continue with inhaled bronchodilators Will follow in a.m. On 05/19/2022 patient is alert and oriented 3. Patient reports improvement with shortness of breath and coughing. Patient remains on IV steroids. Patient denies chest pain. Patient denies nausea vomiting or diarrhea. Patient denies any urinary burning or frequency On 05/20/2022 patient was seen and examined on the medical floor she is alert and oriented 3 she is still complaining of shortness of breath and cough otherwise she denies any complaints there is no fever or chills no headache or dizziness no chest pain, no nausea or vomiting no abdominal pain no diarrhea and no urinary symptoms On 05/21/2022 patient's alert and oriented 3. Patient still complaining of some shortness of breath and congestion will add Flonase. Will order repeat chest x-ray in a.m. to assess for possible discharge tomorrow. Patient denies chest pain. Patient denies nausea vomiting or diarrhea. Patient denies any urinary burning or frequency On 05/22/2022 patient was seen and examined on the medical floor she is alert and oriented 3 in no apparent distress she reports improvement in cough and shortness of breath otherwise she denies any complaints there is no fever or chills no headache or dizziness no chest pain no nausea or vomiting no abdominal pain no diarrhea and no urinary symptoms On 05/23/2022 patient's alert and oriented 3. Reports improvement with shortness of breath and coughing does report generalized weakness. Did discuss case with pulmonary services patient has been cleared for discharge from pulmonary standpoint. Patient will be DC'd on prednisone taper patient to follow-up with PCP consulting providers for management On 05/24 2022 patient was seen and examined on the medical floor she is alert and oriented 3 in no apparent distress, there is no fever or chills no headache or dizziness no chest pain no shortness of breath no cough no nausea or vomiting no abdominal pain no diarrhea and no urinary symptoms. Yesterday patient was discharged home however she declined to go home because she felt very weak and tired, discharge was canceled and consultation for Dr. Sesay was initiated however today she is feeling better and she is requesting to go home. Patient will be discharged home follow-up was Dr. Ferreira in the next 2-3 days, a prescription for prednisone 20 mg was tapered down dose was given at the time of discharge Patient Condition at Discharge: Stable Plan - Discharge Summary Discharge Rx Participant: No New Discharge Prescriptions: New Fluticasone Nasal [place] [Flonase Nasal [place]] 2 spray EA NOSTRIL DAILY #1 dispenser predniSONE 10 mg PO DIRECTED 12 Days #9 tab Continue Apixaban [Eliquis] 2.5 mg PO BID HYDROcodone/APAP 7.5-325MG [[place] 7.5-325] 1 tab PO Q6H PRN PRN Reason: Pain Multivit-Min/FA/Lycopen/Lutein [Centrum Silver Tablet] 1 tab PO DAILY Meclizine [Antivert] 25 mg PO TID PRN PRN Reason: Vertigo Levothyroxine Sodium [Synthroid] 75 mcg PO DAILY Memantine [Namenda] 5 mg PO BID Empagliflozin [Jardiance] 10 mg PO DAILY Furosemide [Lasix] 40 mg PO DAILY dilTIAZem HCL [dilTIAZem HCL 24Hr ER] 240 mg PO DAILY Pantoprazole [Protonix] 40 mg PO AC-BRKFST tab Discontinued Sulfamethoxazole/Trimethoprim [Bactrim DS 800-160 mg] 1 tab PO BID Discharge Medication List Apixaban [Eliquis] 2.5 mg PO BID 02/14/16 [History] HYDROcodone/APAP 7.5-325MG [[place] 7.5-325] 1 tab PO Q6H PRN 02/18/20 [History] Multivit-Min/FA/Lycopen/Lutein [Centrum Silver Tablet] 1 tab PO DAILY 03/08/20 [History] Meclizine [Antivert] 25 mg PO TID PRN 08/04/20 [History] Empagliflozin [Jardiance] 10 mg PO DAILY 10/29/21 [History] Furosemide [Lasix] 40 mg PO DAILY 10/29/21 [History] Levothyroxine Sodium [Synthroid] 75 mcg PO DAILY 10/29/21 [History] Memantine [Namenda] 5 mg PO BID 10/29/21 [History] dilTIAZem HCL [dilTIAZem HCL 24Hr ER] 240 mg PO DAILY 10/29/21 [History] Pantoprazole [Protonix] 40 mg PO AC-BRKFST tab 11/05/21 [Rx] Fluticasone Nasal [place] [Flonase Nasal [place]] 2 spray EA NOSTRIL DAILY #1 dispenser 05/23/22 [Rx] predniSONE 10 mg PO DIRECTED 12 Days #9 tab 05/23/22 [Rx] Follow up Appointment(s)/Referral(s): Martha Ferreira MD [Primary Care Provider] - 1-2 days Residential Home,[facility] [NON-STAFF] - As Needed Activity/Diet/Wound Care/Special Instructions: Activity as tolerated Diet heart healthy Discharge Disposition: HOME SELF-CARE
[2022-05-24 15:22] VITALS: PULSE 88
--- NOTE | 2022-05-27 08:47 | CDI ---
Documentation Clarification Form Date: 05/27/2022 07:37:00 AM From: Bárbara Bautista Admit Date: 05/17/2022 12:11:00 AM Patient Name: Joyce Davis Visit Number: [id number] Discharge Date: 05/24/2022 04:07:00 PM ATTENTION: The Clinical Documentation Specialists (CDI) and [facility] Coding Staff appreciate your assistance in clarifying documentation. Please respond to the clarification below the line at the bottom and electronically sign. The CDI & [facility] Coding staff will review the response and follow-up if needed. Please note: Queries are made part of the Legal Health Record. If you have any questions, please contact the author of this message via ITS. Dr. Kareem Issa Conflicting documentation has been found in the medical record. As attending physician, please provide clarification. Per 05/24 consult under Assessment and Plan number 2. Acute CHF is documented Per PN 05/18-05/23 Chronic diastolic CHF and hypertensive heart disease with concentric LVH History/Risk Factors: HTN, COPD, DM Clinical Indicators: BNP 466 CXR NO CHF Treatment: 40 mg IV Lasix Please clarify which diagnosis is most appropriate: [ xxx ] Acute and chronic diastolic CHF [ ] Chronic diastolic CHF [ ] Acute diastolic CHF [ ] Other (please specify) [ ] Unable to determine MTDD
== END 2022-05-24 16:07 | disposition home or self-care (01) | DRG 190 ==
LOC: SUPCPDRO 22:29 → EC 22:29 → 4SSUR 05-17 00:11
PROVIDERS: ADMIT Internal Medicine; ATTEND Internal Medicine
DX: J44.1 Chronic obstructive pulmonary disease with (acute) exacerbation (principal); I50.33 Acute on chronic diastolic (congestive) heart failure; I48.20 Chronic atrial fibrillation, unspecified; J96.11 Chronic respiratory failure with hypoxia; J44.0 Chronic obstructive pulmonary disease with (acute) lower respiratory infection; J20.9 Acute bronchitis, unspecified; K21.9 Gastro-esophageal reflux disease without esophagitis; G47.33 Obstructive sleep apnea (adult) (pediatric); E03.9 Hypothyroidism, unspecified; E11.9 Type 2 diabetes mellitus without complications; E78.5 Hyperlipidemia, unspecified; F32.A Depression, unspecified; F41.9 Anxiety disorder, unspecified; G89.29 Other chronic pain; I11.0 Hypertensive heart disease with heart failure; I27.20 Pulmonary hypertension, unspecified; Z79.01 Long term (current) use of anticoagulants; Z68.32 Body mass index [BMI] 32.0-32.9, adult; Z79.84 Long term (current) use of oral hypoglycemic drugs; Z79.890 Hormone replacement therapy; Z79.899 Other long term (current) drug therapy; Z82.49 Family history of ischemic heart disease and other diseases of the circulatory system; Z82.5 Family history of asthma and other chronic lower respiratory diseases; Z83.3 Family history of diabetes mellitus; Z86.73 Personal history of transient ischemic attack (TIA), and cerebral infarction without residual deficits; Z87.891 Personal history of nicotine dependence; Z90.710 Acquired absence of both cervix and uterus; Z99.81 Dependence on supplemental oxygen; Z88.6 Allergy status to analgesic agent; E66.3 Overweight
CPT/HCPCS: 36415; 71046; 80053; 83735; 83880; 84145; 84484; 85025; 85379; 87086; 87502; 87634; 87635; 93005; 93306; 94640; 94760; 96361; 96365; 96368; 96375; 99285